=== PATIENT | female | born 1955 | race Caucasian/White ===

== ENCOUNTER → 2020-04-17 | Outpatient (CLI) ==
[~2020-04-17] MED LIST: BASA100I SC; ENAL5TA PO; HYDR12CA PO; JARD1TAB PO; LEVAINH INH; LOVA20TA2 PO; METO1TAB7 PO; OZEM2INJ SC; PANT40TA29 PO; PRED10PA PO; VIIB40TA PO
== END ==
LOC: M LABSMTC 13:38
PROVIDERS: ATTEND Anesthesiology
DX: Z01.812 Encounter for preprocedural laboratory examination (principal); Z20.828 Contact with and (suspected) exposure to other viral communicable diseases

== ENCOUNTER 2020-04-22 08:16 | Day surgery (SDC) | payer OTHER ==
[~2020-04-22] VITALS: Ht 152.4 cm; Wt 87.1 kg
[~2020-04-22 08:16] MED LIST changes: +ALBUTEROL SULFATE 2.5 MG/0.5 ML INH NEB SOLN INH ONE; +LIDOCAINE 1% MDV 20ML VIAL SQ PRN; +LIDOCAINE 2% 100MG/5ML SDV (FOR ANES.) As Ordered ONE; +LIDOCAINE 4% INJ 5ML AMP INH ONE; +LR 1,000 ML IV ONE; +MIDAZOLAM INJ 2MG/2ML VIAL (J2250 PER 1MG) As Ordered ONE; +ONDANSETRON 4MG/2ML VIAL As Ordered ONE; +ROCURONIUM BROMIDE 50 MG/5 ML VIAL As Ordered ONE; +SUGAMMADEX SODIUM 500 MG/5 ML VIAL (BRIDION) As Ordered ONE; +dexameTHASONE 4 MG/ML 1ML VIAL (J1100 PER 1MG) As Ordered ONE; +fentaNYL 100 MCG/2 ML INJECTION (J3010) As Ordered ONE; +propofoL 200 MG/20 ML VIAL As Ordered ONE
[2020-04-22 09:01] LABS: BASO # 0.1 10^3/uL (0.0-0.2); BASO % 0.9 % (0.0-1.0); EOS # 0.2 10^3/uL (0.0-0.5); EOS % 1.6 % (0.0-3.0); HEMATOCRIT 45.3 % (36.0-47.0); HEMOGLOBIN 13.6 g/dl (12.0-15.5); LYMPH # 1.3 10^3/uL (1.5-5.0); LYMPH % 11.2 % (24.0-44.0); MEAN CORPUSCULAR VOLUME 83.1 fl (80.0-96.0); MONO % 8.9 % (0.0-5.0); NEUTROPHILS % 76.7 % (36.0-66.0); PLATELET COUNT, AUTOMATED 194 10^3/uL (150-450); RED BLOOD COUNT 5.45 10^6/uL (4.00-5.40); WHITE BLOOD COUNT 11.7 10^3/uL (4.0-10.0)
[2020-04-22 09:16] LABS: INR 0.96
[2020-04-22] MEDS ORDERED: CETACAINE SPRAY 5GM As Ordered ONE (09:17)
[2020-04-22 09:31] LABS: ALBUMIN 3.7 GM/DL (3.2-5.2); BILIRUBIN,TOTAL 1.5 MG/DL (0.2-1.0); CALCIUM LEVEL 9.3 MG/DL (8.8-10.2); CREATININE FOR GFR 1.12 MG/DL (0.55-1.30); GLOMERULAR FILTRATION RATE 51.8 (>45); POTASSIUM SERUM 3.6 MEQ/L (3.5-5.1)
[2020-04-22] MEDS ORDERED: VASOPRESSIN INJ 20 UNITS/ML VIAL As Ordered ONE (10:10)
--- NOTE | 2020-04-22 10:14 | ECGEPIP ---
[facility] Test Date: 2020-04-22 Pat Name: CODY AMATO Department: Room: - Gender: Female Maintenance Leader: ARTEMIO : 1955 Requested By: BUCKY Benoit Order Number: [id number] Reading MD: Opal Jackson Measurements Intervals [place] Rate: 89 P: 32 NV: 130 QRS: 22 QRSD: 72 T: 35 QT: 335 QTc: 408 Interpretive Statements SINUS RHYTHM LOW QRS VOLTAGE IN PRECORDIAL LEADS ST T ABN NO PRIOR Electronically Signed on 04-22-2020 10:13:54 EDT by Opal Jackson
[2020-04-22] MEDS ORDERED: ACETAMINOPHEN 1000MG 100ML IV BTL (OFIRMEV) (J0131 PER 10MG) As Ordered ONE (10:21)
[2020-04-22] MEDS ORDERED: PHENYLephrine HCL 500 MCG/5 ML (100MCG/ML) SYRINGE (J2370) As Ordered ONE (10:21)
[2020-04-22] MEDS ORDERED: ePHEDrine SULFATE 25 MG/5 ML(5MG/ML) SYRINGE As Ordered ONE (10:21)
[2020-04-22] MEDS ORDERED: THROMBIN SOLN 5,000 UNITS VIAL As Ordered ONE (11:07)
[2020-04-22] MEDS ORDERED: EPINEPHrine 1MG/10ML SYRINGE 1.5IN As Ordered ONE (11:07)
[2020-04-22] MEDS ORDERED: LEVALBUTEROL 1.25 MG/0.5 ML CONCENTRATE NEB As Ordered ONE (11:24)
--- NOTE | 2020-04-22 11:27 | REPVR ---
PROCEDURE INFORMATION: Exam: XR Chest, 1 View Exam date and time: 04/22/2020 11:18 AM Age: 64 years old Clinical indication: Cough; Additional info: Post op in pacu/ post bronchoscopy TECHNIQUE: Imaging protocol: XR of the chest Views: 1 view. COMPARISON: No relevant prior studies available. FINDINGS: Lungs: Interstitial prominence . Asymmetric right-sided airspace disease and volume loss. Pleural space: Small right pleural effusion. No significant pneumothorax. Heart/Mediastinum: Borderline cardiomegaly and mild mediastinal widening. Bones/joints: Osteopenia and degenerative change. IMPRESSION: 1. Asymmetric right-sided airspace disease and volume loss. 2. Additional findings as described above. Electronically signed by: Johan Mendoza On 04/22/2020 11:27:46 AM
[2020-04-22] MEDS ORDERED: ONDANSETRON 4MG/2ML VIAL IV PRN (11:30)
[2020-04-22] MEDS ORDERED: MEPERIDINE INJ 25 MG/ML VIAL (J2175) IV PRN (11:30)
[2020-04-22] MEDS ORDERED: oxyCODONE 5MG TAB PO PRN (11:30)
[2020-04-22] MEDS ORDERED: LR 1,000 ML IV SCH (11:30)
[2020-04-22] MEDS ORDERED: fentaNYL 100 MCG/2 ML INJECTION (J3010) IV PRN (11:30)
[2020-04-22] MEDS ORDERED: METOCLOPRAMIDE INJ 10MG/2ML VIAL (J2765 PER 1) IV PRN (11:30)
[2020-04-22] MEDS ORDERED: LEVALBUTEROL 1.25 MG/0.5 ML CONCENTRATE NEB NEB ONE (12:00)
--- NOTE | 2020-04-22 12:18 | ROOR ---
Patient Name: Mercedes Morejon Procedure Date: 04/22/2020 9:26 AM Date of : 1955 Admit Type: Outpatient Age: 64 Room: Main OR Note Status: Finalized Attending MD: Jannet Terrell MD Procedure: Bronchoscopy Indications: Right upper lobe mass, Right middle lobe mass, Right lower lobe mass, Hilar lymphadenopathy, Mediastinal adenopathy Providers: Jannet Terrell MD (Doctor) Referring MD: CHRYSTAL NGO MD (Referring MD) Requesting Physician: Medicines: General Anesthesia, Lidocaine 4% via nebulizer with Albuterol 2.5 mg, Epinephrine 1 mg/10 mL topical 1 mL, Cetacaine topical Complications: No immediate complications. Estimated blood loss: Minimal Procedure: Pre-Anesthesia Assessment: - Prior to the procedure, a History and Physical was performed, and patient medications and allergies were reviewed. The patient's tolerance of previous anesthesia was also reviewed. The risks and benefits of the procedure and the sedation options and risks were discussed with the patient. All questions were answered, and informed consent was obtained. Prior Anticoagulants: The patient has taken no previous anticoagulant or antiplatelet agents. ASA Grade Assessment: III - A patient with severe systemic disease. After reviewing the risks and benefits, the patient was deemed in satisfactory condition to undergo the procedure. - Patient identification and proposed procedure were verified prior to the procedure by the physician, the nurse, the equipment cleaner and tester and the cnc technician. The procedure was verified in the procedure room. The Bronchoscope was introduced through the mouth, via the endotracheal tube (the patient was intubated for the procedure) and advanced to the tracheobronchial tree of both lungs. The patient tolerated the procedure well. The procedure was accomplished without difficulty. Findings: Bilateral Lung Abnormalities: Trachea appeared normal, imelda was blunt. Mucosa in right upper lobe appeared edematous and irregular with narrowing in right upper lobe apical segment and almost complete occlusion in anterior segment of the right upper lobe (B3). In the right middle lobe there was narrowing due to edematous and irregular mucosa. In the right lower lobe the mucosa also appeared edematous and irregular with narrowing of segmental orificases with near occlusion of the right lower lobe medial basal segment. In the left upper lobe there was some edematous and irregular mucosa and partial occlusion in apical-posterior segment. Endobronchial biopsies were performed in the anterior segment of the right upper lobe, in the medial basal segment of the right lower lobe and in the apical-posterior segment of the left upper lobe using forceps and sent for histopathology examination. Guided brushings were obtained in the anterior segment of the right upper lobe with a cytology brush and sent for routine cytology. BAL was performed in the left upper lobe and in the right upper lobe of the lung and sent for cell count, bacterial culture, and fungal & AFB analysis and cytology. The return was blood-tinged. Mucous plugs were present in the return fluid. An endobronchial ultrasound endoscope was utilized in order to assist with fine needle aspiration in the left hilum. Transbronchial needle aspiration of a lymph node was performed in the left hilum using an Olympus EBUS-TBNA 21 gauge needle and sent for routine cytology. Rapid onsite cytopathology confirmed adequate sample. The procedure was guided by ultrasound. Transbronchial needle aspiration technique was selected because the sampling site was not visible endoscopically. Impression: - Right upper lobe infiltrate - Right middle lobe mass - Right lower lobe mass - Mucosal abnormality in right upper lobe, right middle lobe, right lower lobe and left upper lobe. There was narrowing and obstruction in segmental bronchi in right upper lobe, right lower lobe and left upper lobe. - A endobronchial biopsies was performed. - Brushings were obtained. - Bronchoalveolar lavage was performed. - Endobronchial ultrasound was performed. - A transbronchial needle aspiration was performed of left hilar lymph node Recommendation: - Await test results. Attending Participation: I personally performed the entire procedure. Jannet Terrell MD 04/22/2020 12:17:47 PM Number of Addenda: 0 Note Initiated On: 04/22/2020 9:26 AM
[2020-04-22 13:00] VITALS: BP 105/63
[2020-04-22 14:37] LABS: COLOR PINK (COLORLESS); SOURCE BRON ALVEOLAR LAVAGE
[2020-04-22 14:38] LABS: APPEARANCE CLOUDY (CLEAR)
[2020-04-22 15:15] LABS: APPEARANCE CLOUDY (CLEAR); COLOR PINK (COLORLESS); SOURCE LEFT UPPER LOBE
[2020-04-23 14:04] LABS: MONOCYTES/MACROPHAGES, BAL 80 %
[2020-04-23 14:05] LABS: MONOCYTES/MACROPHAGES, BAL 70 %
== END 2020-04-22 13:05 | disposition home or self-care (01) ==
LOC: M SDC 08:16
PROVIDERS: ATTEND Internal Medicine Pulmonary Disease
DX: C34.12 Malignant neoplasm of upper lobe, left bronchus or lung (principal); C34.31 Malignant neoplasm of lower lobe, right bronchus or lung; C34.11 Malignant neoplasm of upper lobe, right bronchus or lung; C77.1 Secondary and unspecified malignant neoplasm of intrathoracic lymph nodes; I10 Essential (primary) hypertension; E78.5 Hyperlipidemia, unspecified; E10.9 Type 1 diabetes mellitus without complications; Z79.4 Long term (current) use of insulin; Z87.891 Personal history of nicotine dependence; K21.9 Gastro-esophageal reflux disease without esophagitis; L40.9 Psoriasis, unspecified; D86.1 Sarcoidosis of lymph nodes; Z79.52 Long term (current) use of systemic steroids; Z79.899 Other long term (current) drug therapy; Z88.1 Allergy status to other antibiotic agents
CPT/HCPCS: 31624; 31628; 31632; 31652; 36415; 71045; 80053; 82164; 85025; 85610; 87070; 87102; 87116; 87205; 87206; 88104; 88108; 88173; 88305; 88313; 88341; 88342; 89051; 93005; J0131; J1100; J2250; J2370; J2405; J3010

== ENCOUNTER → 2020-05-08 | Outpatient (CLI) | payer OTHER ==
[~2020-05-08] MED LIST changes: -ALBUTEROL SULFATE 2.5 MG/0.5 ML INH NEB SOLN INH ONE; +LEVA0.6322 NEB; -LIDOCAINE 1% MDV 20ML VIAL SQ PRN; -LIDOCAINE 2% 100MG/5ML SDV (FOR ANES.) As Ordered ONE; -LIDOCAINE 4% INJ 5ML AMP INH ONE; -LR 1,000 ML IV ONE; -MIDAZOLAM INJ 2MG/2ML VIAL (J2250 PER 1MG) As Ordered ONE; -ONDANSETRON 4MG/2ML VIAL As Ordered ONE; +PROHANCE 279.3MG/ML 15ML VIAL As Ordered ONE; -ROCURONIUM BROMIDE 50 MG/5 ML VIAL As Ordered ONE; -SUGAMMADEX SODIUM 500 MG/5 ML VIAL (BRIDION) As Ordered ONE; -dexameTHASONE 4 MG/ML 1ML VIAL (J1100 PER 1MG) As Ordered ONE; -fentaNYL 100 MCG/2 ML INJECTION (J3010) As Ordered ONE; -propofoL 200 MG/20 ML VIAL As Ordered ONE
--- NOTE | 2020-05-08 19:00 | REP ---
INDICATION: MAL NEOPLASM OF LUNG, METS?. COMPARISON: None. TECHNIQUE: Axial and sagittal imaging planes are utilized for T1 and T2-weighted scans. Sequences include spin-echo, fast spin echo, FLAIR, and diffusion weighted sequences. The gadolinium enhancement dose is 8 mL of intravenous ProHance. FINDINGS: No bony calvarial lesion is seen. Craniocervical junction and upper cervical cord are normal in appearance. There is no evidence of significant paranasal sinus disease. No intraorbital abnormality is appreciated. There are scattered small-vessel atherosclerotic changes in the subcortical and periventricular white matter bilaterally. No intracranial mass lesion is seen. There are tiny T2 hyperintensities in the basal ganglia inferiorly on the left consistent with dilated perivascular space. Normal variant. There is no evidence of infarct, extra-axial fluid collection or midline shift. Diffusion-weighted scans show no evidence of restricted diffusion. Post-contrast enhanced MR images show no suspicious gadolinium enhancement. IMPRESSION: Small-vessel atherosclerotic changes. There is no evidence of intracranial metastasis. <Electronically signed by Shorty Okeefe > 05/08/20 [id number]
== END ==
LOC: M RAD 17:04
PROVIDERS: ATTEND Internal Medicine Pulmonary Disease
DX: C34.11 Malignant neoplasm of upper lobe, right bronchus or lung (principal)
CPT/HCPCS: 70553; A9576

== ENCOUNTER 2020-05-12 12:10 | Inpatient (IN) | payer OTHER ==
[~2020-05-12] VITALS: Ht 154.9 cm; Wt 81.6 kg
[2020-05-12] VITALS (15 sets, daily range): BP systolic 74–119; BP diastolic 50–77
[~2020-05-12 12:10] MED LIST changes: -LEVA0.6322 NEB; -PROHANCE 279.3MG/ML 15ML VIAL As Ordered ONE
[2020-05-12 13:00] LABS: BASO # 0.1 10^3/uL (0.0-0.2); BASO % 0.9 % (0.0-1.0); EOS # 0.1 10^3/uL (0.0-0.5); EOS % 2.1 % (0.0-3.0); HEMATOCRIT 42.6 % (36.0-47.0); HEMOGLOBIN 13.4 g/dl (12.0-15.5); LYMPH # 1.3 10^3/uL (1.5-5.0); MEAN CORPUSCULAR HEMOGLOBIN 26.2 pg (27.0-33.0); MEAN CORPUSCULAR HGB CONC 31.5 g/dl (32.0-36.5); MEAN CORPUSCULAR VOLUME 83.2 fl (80.0-96.0); MONO # 0.7 10^3/uL (0.0-0.8); MONO % 10.1 % (0.0-5.0); NEUTROPHILS # 4.6 10^3/uL (1.5-8.5); NEUTROPHILS % 67.8 % (36.0-66.0); PLATELET COUNT, AUTOMATED 151 10^3/uL (150-450); RED BLOOD COUNT 5.12 10^6/uL (4.00-5.40); WHITE BLOOD COUNT 6.8 10^3/uL (4.0-10.0)
--- NOTE | 2020-05-12 13:10 | REP ---
INDICATION: DYSPNEA/COUGH. COMPARISON: Portable chest 04/22/2020 TECHNIQUE: AP upright portable chest FINDINGS: Lungs better inflated than on the previous study. There is increased blunting of the right CP angle indicating enlarging effusion. Airspace opacity in the right mid and lower lung zone is seen in an asymmetric pattern with some vascular congestion in the upper right lung zone, allowing for differences in technique quite similar to the previous study. Left lung well inflated with some basilar fibrotic changes. Small zone of lateral pleural thickening or subpleural disease at the left CP angle. No pneumothorax. Heart shows left atrial enlargement with elevation of the mainstem bronchus. Question of some superior mediastinal widening on the right versus the effect of mediastinal fat and AP portable technique. There is no vascular redistribution on the the left. IMPRESSION: Increasing right pleural effusion and vascular redistribution, asymmetrically on the right compared to left. The airspace disease in the right lung appears similar allowing for better level of inflation compared to 04/22/2020. Left lateral pleural thickening or subpleural disease at the CP angle. Left lung well inflated and otherwise clear. Left atrial enlargement and mild prominence of cardiac silhouette overall. <Electronically signed by Jonathon Tellez > 05/12/20 [id number]
[2020-05-12] MEDS ORDERED: ACETAMINOPHEN 500 MG TAB PO ONE (13:15)
[2020-05-12] MEDS ORDERED: ISOVUE-370 76% 100ML VIAL As Ordered ONE (13:20)
[2020-05-12 13:27] LABS: ALBUMIN 3.4 GM/DL (3.2-5.2); BILIRUBIN,DIRECT 0.2 MG/DL (0.0-0.2); THYROID STIMULATING HORMONE 0.472 uIU/ML (0.358-3.740); TOTAL PROTEIN 6.4 GM/DL (6.4-8.2)
--- NOTE | 2020-05-12 14:07 | REP ---
INDICATION: dyspnea. COMPARISON: Portable chest 05/12/2020, 04/22/2020. TECHNIQUE: Bolus 100 mL Isovue 370 with standard coronal and sagittal reconstructions and MIP reformats. FINDINGS: Airspace opacity in the right lung on portable chest is confirmed to be large above perihilar infrahilar confluent mass by CT. It envelopment the hilar vessels and extends to the pleura medially and laterally in the lower chest. The confluent mass overall has a vertical extent of at least 10 cm, 9.3 cm in AP dimension and 4.5 cm transversely. Confluent adenopathy in the right paratracheal, AP window and subcarinal regions. Some precarinal nodes and prevascular space nodes of pathologic size are noted as well smaller nodes at the left hilum are present. There is a subsegmental atelectatic and dependent atelectatic changes in both lower lung zones. Pleural disease most prominent laterally in the right lower lung zone and posteromedially in the infrahilar region. There bilateral pleural effusions which on the right extends upward to near the imelda level and is much smaller on the left. Pericardial effusion the maximum thickness of 24 mm of posterolaterally. Allowing for this the heart size is the only mildly prominent the thoracic aorta shows no aneurysm or dissection. In the mediastinum, the right, left and main pulmonary artery segments are without filling defects or vessel cut off. The left upper and lower lobe pulmonary arteries are without vessel cut off or filling defects. There is attenuation of the right middle and upper pulmonary arteries due to the envelop ping mass well the lower lobe arteries were of normal caliber no vessel cut off however segmental and visible subsegmental arteries also without filling defect or vessel cut off. Liver is only seen in part but as a prominent left hepatic lobe, lobulated contours and there is an enlarged spleen which is seen only in part with the transverse diameter of 14.5 cm adrenal glands slightly thickened suggesting adrenal hyperplasia appear to be some upper pole cysts in the right kidney. Gallbladder and pancreas only partly visualized but grossly intact, few small nodes in the gastrohepatic ligament visible. The bone windows show some degenerative changes in the spine without destructive lesion or compression deformities. Posterior elements intact with visualized sternum, manubrium, medial clavicles, visualized portions of scapula, humeral heads and ribs without fracture or destructive lesion. IMPRESSION: 1. No CT evidence of pulmonary thromboembolism. 2. Large right hilar perihilar mass extending vertically at least 10 cm by 9.3 x 4.5 cm as pleural extensions along both medial and lateral aspects of the lung base. Small pleural effusion on the right trace on the left. This represents a lung malignancy. 3. Mediastinal and some left hilar adenopathy as described above. There are a couple of the satellite nodule suspected in the right upper lobe. 4. Pericardial effusion up to 2.4 cm thick posteriorly only minimal enlargement of the cardiac silhouette. Some gastric Paddock ligament nodes evident. 5. Enlargement left hepatic lobe and splenomegaly. This suggests chronic liver disease. No definite bone lesion. <Electronically signed by Jonathon Tellez > 05/12/20 [id number]
[2020-05-12] MEDS ORDERED: BISACODYL 10 MG SUPP PR PRN (14:30)
[2020-05-12] MEDS ORDERED: PERCOCET 5MG/325MG TAB PO PRN ×2 (14:30)
[2020-05-12] MEDS ORDERED: LEVALBUTEROL 1.25 MG/0.5 ML CONCENTRATE NEB NEB PRN (14:30)
[2020-05-12] MEDS ORDERED: NORCO, ANEXSIA 5/325MG TABLET (HYDROcodone/ACETAMINOPHEN) PO PRN (15:00)
[2020-05-12 15:10] LABS: ABG BASE EXCESS -0.6 (-2.0-2.0); ABG HCO3 23.6 MEQ/L (22.0-26.0); ABG O2 SATURATION 94.7 % (95.0-99.0); ABG PARTIAL PRESSURE CO2 37.3 mmHg (35.0-45.0); ABG PARTIAL PRESSURE O2 70.7 mmHg (75.0-100.0); ABG TOTAL CO2 24.7 MEQ/L (23.0-31.0); ABG pH (ARTERIAL) 7.419 UNITS (7.350-7.450)
[2020-05-12] MEDS ORDERED: LEVA0.6322 NEB (15:10)
[2020-05-12 15:11] LABS: ABG SITE RT BRACHIAL
[2020-05-12] MEDS ORDERED: KETOROLAC 30 MG/ML 1ML VIAL IV SCH (16:00)
[2020-05-12] MEDS: HEPARIN SOD (PORCINE) 5000UNITS/ML 1ML VIAL/SYRINGE SC SCH (16:26)
[2020-05-12] MEDS: KCL 20MEQ IN D5/NS 1000ML 1,000 ML IV SCH (16:27)
--- NOTE | 2020-05-12 16:37 | HPEPDOC ---
General Date of Admission May 12, 2020 at 14:30 Date of Service: May 12, 2020 Chief Complaint The patient is a 64-year-old female admitted with a reason for visit of Pericardial Effusion. Source: Patient Exam Limitations: No limitations History of Present Illness Mrs. Morejon is a 64 year old female with sarcoidosis, HTN, and DM type 2 here with progressively worsening dyspnea. Her dyspnea initially started in November of 2019. Her PCP thought she had pneumonia. After 2 rounds of prednisone and antibiotics not improving her symptoms, she was sent to pulmonary for further evaluation. Imaging demonstrated malignancy and fluid in her lung. She was then sent to the ED. CTA of the chest demonstrated a large right perihilar mass, bilateral pleural effusion, and 2.4 cm pericardial effusion. The ED consulted CT surgery, Dr. Tran who recommended a stat echocardiogram and a stat read for the pericardial effusion. Otherwise when I spoke with her, her dyspnea has been progressively worsening. Denies sick contacts, heart disease, or renal disease. Recently had a dry cough, but denies fever/chills, chest pain, abdominal pain, diarrhea or dysuria. Patient was moved up to the ICU. Dr. Tran and patient had a long conversation about the procedure. Patient would like to discuss with . Tentatively planning for pericardial window tomorrow morning. Home Medications Scheduled Empagliflozin (Jardiance) 10 Mg Tablet, 10 MG PO DAILY, (Reported) Enalapril Maleate (Enalapril Maleate) 5 Mg Tablet, 5 MG PO DAILY, (Reported) Hydrochlorothiazide (Hydrochlorothiazide) 12.5 Mg Capsule, 12.5 MG PO DAILY, (Reported) Insulin Glargine,Hum.rec.anlog (Basaglar Kwikpen U-100) 100 Unit/1 Ml Insuln.pen, 35 UNIT SC QHS, (Reported) Lovastatin (Lovastatin) 20 Mg Tablet, 20 MG PO QHS, (Reported) Metoprolol Succinate (Metoprolol Succinate) 50 Mg Tab.er.24h, 50 MG PO DAILY, (Reported) Pantoprazole Sodium (Pantoprazole Sodium) 40 Mg Tablet.dr, 40 MG PO DAILY, (Reported) Semaglutide (Ozempic) 0.25 Mg/0.2 Ml Pen.injctr, 0.5 MG SC QWEEK, (Reported) MONDAY Vilazodone HCl (Viibryd) 40 Mg Tablet, 40 MG PO DAILY, (Reported) Scheduled PRN Levalbuterol HCl (Levalbuterol HCl) 0.63 Mg/3 Ml Vial.neb, 0.63 MG NEB Q6H PRN for SHORTNESS OF BREATH, (Reported) Allergies Coded Allergies: citalopram (Verified Adverse Reaction, Severe, jittery, 05/12/20) metformin (Verified Adverse Reaction, Severe, nausea, vomiting, 05/12/20) erythromycin base (Verified Adverse Reaction, Intermediate, vomiting, 04/20/20) azithromycin (Verified Adverse Reaction, Unknown, vomiting, 05/12/20) mirtazapine (Verified Adverse Reaction, Unknown, insomnia, 05/12/20) Past Medical History Medical History 1. Sarcoidosis 2. HTN 3. IDDM 4. History of pulmonary embolism 5. GERD 6. Psoriasis Surgical History 1. Hysterectomy 2. Hernia repair Family History Father: Emphysema Mother: CHF Social History * Smoker: former Smoker (Quit in 1993) Alcohol: Denies Drugs: denies A-FIB/CHADSVASC A-FIB History Current/History of A-Fib/PAF?: No Review of Systems Constitutional: Denies: Chills, Fever Eyes: Denies: Vision change ENT: Denies: Sore Throat Skin: Denies: Rash Pulmonary: Reports: Dyspnea, Cough Cardiovascular: Denies: Chest Pain Gastrointestinal: Denies: Nausea, Abdominal Pain Genitourinary: Denies: Dysuria Hematologic: Denies: Bruising Endocrine: Reports: Polydipsia; Denies: Polyphagia, Polyuria Physical Examination General Exam: Positive: Alert, Cooperative, Mild Distress Eye Exam: Positive: EOMI; Negative: Sclera icteric ENT Exam: Positive: Atraumatic Neck Exam: Positive: Supple Chest Exam: Positive: Clear to auscultation, Diminished (In the right lower lobe) Heart Exam: Positive: Rate Normal, Regular Rhythm Abdomen Exam: Positive: Normal bowel sounds, Soft; Negative: Tenderness Extremity Exam: Negative: Cyanosis Neuro Exam: Positive: Cranial Nerves 3-12 NL Psych Exam: Positive: Mental status NL, Mood NL Vital Signs Vital Signs Date Time Temp Pulse Resp B/P (MAP) Pulse Ox O2 Delivery O2 Flow Rate FiO2 05/12/20 15:31 87 22 105/65 (78) 95 05/12/20 13:16 Room Air 05/12/20 12:11 98.2 Laboratory Data Labs 24H Laboratory Tests 2 05/12/20 12:49: Immature Granulocyte % (Auto) 0.1, Neutrophils (%) (Auto) 67.8H, Lymphocytes (%) (Auto) 19.0L, Monocytes (%) (Auto) 10.1H, Eosinophils (%) (Auto) 2.1, Basophils (%) (Auto) 0.9, Neutrophils # (Auto) 4.6, Lymphocytes # (Auto) 1.3L, Monocytes # (Auto) 0.7, Eosinophils # (Auto) 0.1, Basophils # (Auto) 0.1, Nucleated Red Blood Cells % (auto) 0.0, Total Bilirubin 1.0, Direct Bilirubin 0.2, Aspartate Amino Transf (AST/SGOT) 33, Alanine Aminotransferase (ALT/SGPT) 36, Alkaline Phosphatase 232H, PR-Ema-W-Type Natriuretic Peptide 118, Total Protein 6.4, Albumin 3.4, Albumin/Globulin Ratio 1.1L, Thyroid Stimulating Hormone (TSH) 0.472 05/12/20 12:50: POC Glucose (Misc Panel) 155H, POC Sodium (Misc Panel) 133L, POC Potassium (Misc Panel) 3.8, POC Chloride (Misc Panel) 98, POC Total CO2 (Misc Panel) 26.0, POC Blood Urea Nitrogen (Misc Panel 25, POC Ionized Calcium (Misc Panel) 4.5, POC Creatinine (Misc Panel) 1.3, POC Hematocrit (Misc Panel) 42.0 05/12/20 12:58: POC Lactate (Misc Panel) 1.54 05/12/20 13:00: POC Troponin I (Misc) 0.01 05/12/20 14:54: Blood Gas Bicarbonate Standard 24.0, Arterial Blood pH 7.419, Arterial Blood Partial Pressure CO2 37.3, Arterial Blood Partial Pressure O2 70.7L, Arterial Blood Total CO2 24.7, Arterial Blood HCO3 23.6, Arterial Blood Base Excess -0.6, Arterial Blood Oxygen Saturation 94.7L, Arterial Blood Gas Puncture Site RT BRACHIAL CBC/BMP Laboratory Tests 05/12/20 12:49 Microbiology Microbiology 05/12/20 Blood Culture, Received Pending 05/12/20 Blood Culture, Received Pending Assessment/Plan Mrs. Morejon is a 64 year old female with stage 3-4 lung cancer, sarcoidosis, and IDDM here with worsening dyspnea found to have pericardial effusion and pleural effusion. In the ED, CT surgery, Dr. Tran was consulted. Recommended stat echocardiogram for pericardial effusion and stat read. Pending official echocardiogram read. Dr. Tran saw patient in the ICU. Discussed the procedure with patient. Patient would like to speak with about procedure. Tentatively planning for procedure tomorrow morning. NPO after midnight. Plan / VTE VTE Prophylaxis Ordered?: Yes Plan Plan 1. Pericardial effusion -Demonstrated on CTA that is up to 2.4cm thick -Stat echocardiogram read, may need to be drained soon -CT surgery, Dr. Tran, consulted. Recommendations appreciated. Planning for OR tomorrow morning -No uremia, no history of heart disease -May be related to malignancy with her history of stage 3-4 lung cancer 2. Pleural effusion -Bilateral pleural effusion -Pending echocardiogram read -May be also related to malignancy 3. Hypertension -Blood pressure well controlled -Will hold enalapril, HCTZ, and Toprol XL as SBP on the lower end 4. IDDM -Holding empagliflozin, ozempic, and vilazodone -After procedure, start Carb consistent diet, ISS, and Levemir 5. GERD -Pantoprazole 6. DVT ppx -Heparin ASHER ROGERS DO May 12, 2020 16:07
[2020-05-12] MEDS ORDERED: DEXTROSE 50% 50 ML SYRINGE IV PRN (17:00)
[2020-05-12] MEDS ORDERED: GLUCAGON INJ 1MG VIAL SC PRN (17:00)
[2020-05-12] MEDS ORDERED: GLUCOSE 4GM CHEW TABLET PO PRN (17:00)
[2020-05-12] MEDS: HumaLOG INSULIN (NovoLOG) PER UNIT SC SCH ×2 (17:30→21:00)
[2020-05-12] MEDS: LEVALBUTEROL 1.25 MG/0.5 ML CONCENTRATE NEB NEB SCH (19:35)
[2020-05-12] MEDS: DOCUSATE SODIUM 100 MG CAP PO SCH (21:23)
[2020-05-12] MEDS: LEVEMIR (INSULIN DETEMIR) 1 UNITS/0.01ML SC SCH (21:24)
[2020-05-13] VITALS (20 sets, daily range): BP systolic 92–130; BP diastolic 52–75; O2SAT 95
[2020-05-13] MEDS: LEVALBUTEROL 1.25 MG/0.5 ML CONCENTRATE NEB NEB SCH ×4 (01:05→19:07)
[2020-05-13] MEDS: HEPARIN SOD (PORCINE) 5000UNITS/ML 1ML VIAL/SYRINGE SC SCH ×2 (02:50→17:57)
[2020-05-13 05:14] LABS: EOS # 0.1 10^3/uL (0.0-0.5); EOS % 1.8 % (0.0-3.0); HEMATOCRIT 38.2 % (36.0-47.0); LYMPH # 0.8 10^3/uL (1.5-5.0); LYMPH % 20.1 % (24.0-44.0); MEAN CORPUSCULAR HEMOGLOBIN 24.8 pg (27.0-33.0); MEAN CORPUSCULAR HGB CONC 29.6 g/dl (32.0-36.5); MONO # 0.4 10^3/uL (0.0-0.8); MONO % 11.2 % (0.0-5.0); NEUTROPHILS # 2.5 10^3/uL (1.5-8.5); NEUTROPHILS % 65.6 % (36.0-66.0); PLATELET COUNT, AUTOMATED 109 10^3/uL (150-450); RED BLOOD COUNT 4.55 10^6/uL (4.00-5.40); WHITE BLOOD COUNT 3.8 10^3/uL (4.0-10.0)
[2020-05-13 05:43] LABS: HEMOGLOBIN 11.3 g/dl (12.0-15.5)
[2020-05-13 05:48] LABS: CALCIUM LEVEL 8.5 MG/DL (8.8-10.2); CREATININE FOR GFR 1.17 MG/DL (0.55-1.30); GLOMERULAR FILTRATION RATE 49.3 (>45)
[2020-05-13] MEDS ORDERED: ceFAZolin SOD 2 GM in IV 1 EA IV ONE (06:00)
[2020-05-13] MEDS: HumaLOG INSULIN (NovoLOG) PER UNIT SC SCH ×4 (06:56→21:00)
--- NOTE | 2020-05-13 07:36 | ECHO ---
DATE OF PROCEDURE: 05/12/2020 Age: 64 Gender: Female REFERRING PHYSICIAN: [facility] emergency room. INDICATION: Pericardial effusion. MEASUREMENTS: Aorta 3.0 LA 3.1 IV is 1.0 LV 3.2 LVPW 0.9 IVC 1.7 Mitral E wave velocity 82, A wave 95. E prime septal 6.5. E prime lateral 6.5 FINDINGS: This study is of fair technical quality with somewhat challenging visualization. The patient is in sinus rhythm. Left ventricle is normal size and there is normal systolic function. I estimate ejection fraction (EF) around 60%. No segmental wall motion abnormalities are appreciated. Right ventricle is also normal size and systolic function. Both atria appear normal. Aortic valve is sclerotic, but has preserved mobility. There are degenerative abnormalities of mitral valve with mitral annular calcifications and mild thickening of mitral leaflets. Mobility is preserved. Tricuspid and pulmonic valves appear normal. There is a large circumferential pericardial effusion that is most abundant close to the left ventricular apex measuring a little over 2 cm. It becomes progressively less copious towards the base of the heart and the thickness of the fluid level close the atria is less than 0.5 cm. I do not appreciate any collapse of any of the 4 cardiac chambers. Inferior vena cava is normal size and appropriately collapses with inspiration indicative of normal central venous pressure. Aortic root is normal. Aortic arch and abdominal aorta were not well seen. Doppler interrogation reveals competent aortic valve without significant stenosis or insufficiency. Same applies for mitral valve. There is mild tricuspid insufficiency. Calculated pulmonary artery pressure is approximately 30 mmHg corresponding to upper limits of normal values. Pulmonic valve is functionally competent. Mitral inflow pattern and tissue Doppler imaging of mitral annulus revealed grade 1 diastolic dysfunction. CONCLUSIONS: 1. Study is of fair technical quality. The patient is in sinus rhythm. 2. Large circumferential pericardial effusion. Its largest diameter is close to left ventricular apex. No signs of cardiac compression. 3. Normal LV size and systolic function, grade 1 diastolic dysfunction. 4. No significant valvular disease. 5. Likely normal central venous pressure and borderline pulmonary hypertension. COMMENTS: Results of the study were communicated to Dr. Tran. AYESHA
[2020-05-13] MEDS: DOCUSATE SODIUM 100 MG CAP PO SCH ×2 (08:23→20:35)
[2020-05-13] MEDS: MOM 30ML SUSPENSION UDC PO SCH (08:23)
[2020-05-13] MEDS: PANTOPRAZOLE 40MG TAB (PROTONIX) PO SCH (08:31)
--- NOTE | 2020-05-13 08:35 | REP ---
INDICATION: pericardial effusion, lung cancer. COMPARISON: Comparison study May 12, 2020. TECHNIQUE: Two views.. FINDINGS: Monitoring electrodes are seen. Pleural opacity persists on the right with blunting of the right lateral pleural angle. Left lateral pleural angle is improved. Heart size is unchanged. No new infiltrate is seen. There is a rounded opacity in the perihilar region on the right consistent with infiltrate or large mass, unchanged. IMPRESSION: Extensive pleuroparenchymal opacity right perihilar and right lung base regions. Somewhat improved left pleural angle. No new infiltrate.. <Electronically signed by Shorty Okeefe > 05/13/20 [id number]
[2020-05-13] MEDS ORDERED: BUPIVACAINE LIPOSOME/PF 1.3% 20ML VIAL (13.3MG/ML)(EXPAREL)(C9290 PER1MG) As Ordered ONE (10:26)
[2020-05-13] MEDS ORDERED: MIDAZOLAM INJ 2MG/2ML VIAL (J2250 PER 1MG) As Ordered ONE (10:42)
[2020-05-13] MEDS ORDERED: LIDOCAINE 2% 100MG/5ML SDV (FOR ANES.) As Ordered ONE (10:42)
[2020-05-13] MEDS ORDERED: ROCURONIUM BROMIDE 50 MG/5 ML VIAL As Ordered ONE ×2 (10:42→13:45)
[2020-05-13] MEDS ORDERED: propofoL 200 MG/20 ML VIAL As Ordered ONE (10:42)
[2020-05-13] MEDS ORDERED: fentaNYL 100 MCG/2 ML INJECTION (J3010) As Ordered ONE ×2 (10:42→13:41)
--- NOTE | 2020-05-13 11:37 | ECGEPIP ---
[facility] - ED Test Date: 2020-05-12 Pat Name: CODY AMATO Department: Room: - Gender: Female Transition Manager: yaya : 1955 Requested By: QUOC ALBARRAN Order Number: [id number] Reading MD: Todd Tyler Measurements Intervals [place] Rate: 95 P: 22 ID: [id number] QRS: 15 QRSD: 76 T: 75 QT: 316 QTc: 398 Interpretive Statements SINUS RHYTHM POOR R WAVE PROGRESSION LOW QRS VOLTAGE IN PRECORDIAL LEADS NSTTW ABNORMALITY(S) SIMILAR TO 04/22/20 Electronically Signed on 05-13-2020 11:37:11 EST by Todd Tyler
[2020-05-13] MEDS: KCL 20MEQ IN D5/NS 1000ML 1,000 ML IV SCH ×3 (11:43→17:52)
--- NOTE | 2020-05-13 12:05 | CR ---
DATE OF CONSULTATION: 05/12/2020 REASON FOR CONSULTATION: The patient was seen at the request of the hospitalist service in the emergency room for increasing shortness of breath. HISTORY OF PRESENT ILLNESS: The patient is a 64-year-old white female who had a known diagnosis of a right upper and middle lobe mass with adenocarcinoma. Her symptoms started in late spring with a cough, sputum production and occasional hemoptysis. She was treated with a variety of antibiotics by her primary car physicians and a chest x-ray was finally undertaken, which showed the above masses. She did not complain of fevers, chills or sweats, but has noted an approximate 3 to 4 pound weight loss over the past four months. Most significantly, she has been short of breath for the last three months and that has become worse and worse until finally today she could not get up and around and walk around her house and finally sought medical attention in the emergency room. She had previously been seen by Dr. Terrell and underwent a bronchoscopy and a complete workup where the diagnosis was ascertained. Today, she start a cough that she states is only occasionally and she brings up some white to yellow sputum. She denies chest pain or chest discomfort. She does have pain in her mid back. There is no dysphagia. She is a former smoker having smoked one pack of Marlboros per today, but quit approximately 30 years ago. She also carries a diagnosis of sarcoidosis with mediastinal lymphadenopathy. She is diagnosed by mediastinoscopy many years ago. She has been in remission since her diagnosis. She also had a history of a pulmonary embolism treated with anticoagulation, but not currently on anticoagulation now. PAST MEDICAL HISTORY: 1. Diabetes. 2. Hypertension. 3. Hyperlipidemia. 4. Gastroesophageal reflux disease. 5. Psoriasis. 6. Pulmonary embolism. 7. Sarcoidosis. PRIOR SURGERIES: Hysterectomy with a left-sided hand tendon repair and the above mediastinoscopy. MEDICATIONS: AT HOME: Lovastatin 20 mg q day, Protonix 40 mg q day, Jardiance 10 mg q day, metoprolol ER 50 mg q day, hydrochlorothiazide 12.5 mg q day, enalapril 5 mg q day, Ozempic 2 mg q day. ALLERGIES: AZITHROMYCIN, CITALOPRAM (AZITHROMYCIN BASED), METFORMIN, and MIRTAZAPINE. HABITS: She has the above smoking history. No alcohol and no illicit drugs. EXPOSURES: She has one cat and no dogs or birds. TRAVEL HISTORY: She has been to [place], but not to the [facility]. 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 She retired approximately 10 years ago and up until then all of her TB tests have been negative. No history of asbestos exposure. FAMILY HISTORY: Mother with congestive heart failure (CHF), father with emphysema. Sister from colon cancer. REVIEW OF SYSTEMS: Constitutional: See history of present illness without recent fever, chills or night sweats. She has had a 3 pound weight loss. Nose without epistaxis. Mouth has round teeth. Eyes without diplopia, amaurosis fugax or jaundice. Respiratory: See history of present illness. Cardiac: Without prior myocardial infarctions. Has a history of supraventricular tachycardia (SVT). She has not been aware of any palpitations, however, recently. No intermittent claudication. She does get cramps at night. No peripheral edema. She props herself up on pillows which she has done for many years. GI: With occasional nauseas, no vomiting. No diarrhea or constipation. No melena or hematochezia or hematemesis or abdominal pain. : Without dysuria or hematuria. Does have a history of a renal stone in the past. Endocrine: Without thyroid disease with diabetes. Neurologic: Without paresthesia, paralysis or prior seizures. Psychiatric: Without pathologic anxieties, depression or psychosis. PHYSICAL EXAMINATION: Well-developed, well-nourished, very obese white female in no acute distress, lying at rest. Vital signs: Temperature 98.3 with a heart rate of 86 in sinus rhythm. Respiratory rate of 20 without use of accessory muscles. She is 95% saturated on 2 liters nasal canula and blood pressure is 119/56. Head: Normocephalic. Eyes: Pupils equal, round and reactive to light. Extraocular muscles are intact. Sclerae nonicteric. Nose without deformity. Mouth shows mucous membranes to be pink and moist. Lip, gums and tongue with no thrush. Teeth look to be in good repair. Neck is supple. There is no jugular venous distention, no subcutaneous emphysema. Trachea is midline. She has 2+ carotid pulses without bruits. There is no thyromegaly or lymphadenopathy. Lungs showed decreased breath sounds on the right side at both right and left bases. I really can not tell if her percussion note is full from her diaphragm through her obesity. Sounds a little dull at both bases, however. I hear no wheezes, rhonchi or rales. Cardiac examination shows distant heart sounds, S1 and S2 normal. I cannot feel her PMI through her obesity. Her chest wall shows inframammary candidiasis with a red rash. Abdomen is soft, nontender. Bowel sounds are positive. No hepatomegaly. No costovertebral angle (CVA) tenderness. Again it is very hard to tell organomegaly through her obesity. Extremities show on pedal tibial, no calf tenderness, no tenderness or swelling in the upper extremities. Skin is warm, dry and perfuse. No cyanosis or mottling of the nail beds and knees. Neuro: Cranial nerves II-XII intact with gross motor and gross sensation intact. Gait is not tested. Psychiatric: She is awake and alert, oriented x 3 with appropriate mood and affect conversational. LABORATORY DATA: Her white count today is 6.8 with hemoglobin and hematocrit of 13.4 and 42.6 respectively with a platelet count of 151. Differential shows 67% neutrophils, 19% lymphocytes, 10% monocytes. There are no immature forms and no toxic granulations. Blood gas today showed a pH of 7.41, pCO2 of 37, a pO2 of 70 with a base excess of -0.6. Chemistries today show normal electrolytes with a BUN and creatinine of 19 and 1.12. A glucose of 146 with a calcium of 9.3 and corresponding albumin of 3.7. Total bilirubin is 1.5 with AST and ALT of 30 and 31 respectively. PT/INR on 04/22/2020 was 13.0 and 0.96. Pathology: One biopsy showed moderate differentiated adenocarcinoma. A left upper lobe transbronchial biopsy showed adenocarcinoma. Cells were positive for TTF1. TDL1 showed a 25% expression. No other tumor markers have been reported back. Fine needle biopsy of a left hilar node showed it to be positive for malignancy. Chest CT today done with angiogram protocol did not show a pulmonary embolism. Shows a moderate pericardial effusion directed mostly to the left and posteriorly. She had large right-sided mass of the upper and middle lobes. She has a small right-sided pleural effusion. The computer just crashed and from memory she looks as though she has invasion into the mediastinum. Her echocardiogram today showed a moderate to large pericardial effusion, more at the apex. There was no ventricular or atrial compression. Pulmonary artery pressure is measured around 25 mmHg. There is no significant of impending tamponade. IMPRESSION: 1. Pericardial effusion, at this point not compressive, but probably malignant. 2. Small pleural effusion. 3. Adenocarcinoma right middle and upper lobes. 4. Adenocarcinoma of the left hilar node. 5. Diabetes. 6. Hypertension. PLAN AND DISCUSSION: While her pericardial effusion is not compressive, she is rather short of breath. I think the shortness of breath is a combination of her pericardial effusion and her lung masses. Pericardial effusion is large enough so that it is eventually going to get her into trouble. I will therefore electively drain this tomorrow rather than take her to the operating room tonight. She is not in extremist. I will do a pericardial window with a tube pericardiostomy. At the same time, I will place a chest tube in the right chest to drain a small amount of pericardial effusion. Will send the specimens off for requisite cytology, hematologies, bacteriologies and chemistries. I have explained the procedures to the patient, she understands and is willing to proceed. She knows the complications as of mortality, bleeding and infection. AYESHA
[2020-05-13] MEDS ORDERED: MUPIROCIN 2% OINT 22 GM TUBE As Ordered ONE (12:17)
[2020-05-13] MEDS ORDERED: ceFAZolin 2 GM/D5W 50 ML IV BAG (J0690 PER 500MG) As Ordered ONE (12:34)
[2020-05-13] MEDS ORDERED: VASOPRESSIN INJ 20 UNITS/ML VIAL As Ordered ONE (13:17)
[2020-05-13] MEDS ORDERED: METOCLOPRAMIDE INJ 10MG/2ML VIAL (J2765 PER 1) As Ordered ONE (14:14)
[2020-05-13] MEDS ORDERED: KETOROLAC 60MG 2ML VIAL As Ordered ONE (14:14)
[2020-05-13] MEDS ORDERED: SUGAMMADEX SODIUM 500 MG/5 ML VIAL (BRIDION) As Ordered ONE (14:14)
[2020-05-13] MEDS ORDERED: ONDANSETRON 4MG/2ML VIAL As Ordered ONE (14:14)
[2020-05-13] MEDS ORDERED: NS 1,000 ML IV SCH (14:39)
[2020-05-13] MEDS ORDERED: MORPHINE 1MG/ML IN 0.9% NACL 100ML IV BAG IV PRN (14:45)
[2020-05-13] MEDS ORDERED: EPIDURAL/PCA KEYS XX PRN (14:45)
[2020-05-13] MEDS ORDERED: NALOXONE INJ 0.4MG/1ML VIAL (J2310 PER 1MG) IV PRN (14:45)
[2020-05-13] MEDS ORDERED: diphenhydrAMINE 50MG/ML VIAL (J1200) IV PRN (14:45)
[2020-05-13] MEDS ORDERED: MORPHINE 1MG/ML IN 0.9% NACL 100ML IV BAG As Ordered ONE (15:12)
[2020-05-13 15:17] LABS: ABG BASE EXCESS -2.6 (-2.0-2.0); ABG HCO3 24.7 MEQ/L (22.0-26.0); ABG O2 SATURATION 99.7 % (95.0-99.0); ABG PARTIAL PRESSURE CO2 53.2 mmHg (35.0-45.0); ABG PARTIAL PRESSURE O2 240.4 mmHg (75.0-100.0); ABG STANDARD HCO3 22.3 MEQ/L (22.0-26.0); ABG TOTAL CO2 26.3 MEQ/L (23.0-31.0); ABG pH (ARTERIAL) 7.284 UNITS (7.350-7.450)
[2020-05-13 15:20] LABS: PH BODY FLUID 7.553 UNITS (NOT ESTABLISHED); SOURCE, BODY FLUID pH PERICARDIAL
[2020-05-13 15:22] LABS: SPEC. GRAVITY BODY FLUIDS 1.027 (NOT ESTABLISHED)
[2020-05-13 15:26] LABS: APPEARANCE, BODY FLUID HAZY (CLEAR); SOURCE, BODY FLUID PERICARDIAL
[2020-05-13] MEDS ORDERED: HYDROMORPHONE HCL 0.5 MG/ 0.5 ML SYRINGE (J1170 PER 1) IV PRN (15:30)
[2020-05-13] MEDS ORDERED: oxyCODONE 5MG TAB PO PRN (15:30)
[2020-05-13] MEDS ORDERED: fentaNYL 100 MCG/2 ML INJECTION (J3010) IV PRN (15:30)
[2020-05-13] MEDS ORDERED: LR 1,000 ML IV SCH (15:30)
[2020-05-13] MEDS ORDERED: ONDANSETRON 4MG/2ML VIAL IV PRN (15:30)
[2020-05-13] MEDS ORDERED: METOCLOPRAMIDE INJ 10MG/2ML VIAL (J2765 PER 1) IV PRN (15:30)
[2020-05-13 15:47] LABS: LDH, BODY FLUID 577 U/L (NOT ESTABLISHED); SOURCE, BODY FLUID ALBUMIN PERICARDIAL; SOURCE, BODY FLUID GLUCOSE PERICARDIAL; SOURCE, BODY FLUID LDH PERICARDIAL; SOURCE, BODY FLUID TOT PROTEIN PERICARDIAL; TOTAL PROTEIN, BODY FLUID 4.4 G/DL (NOT ESTABLISHED)
[2020-05-13 15:48] LABS: BASO # 0.1 10^3/uL (0.0-0.2); BASO % 1.1 % (0.0-1.0); EOS # 0.1 10^3/uL (0.0-0.5); EOS % 1.9 % (0.0-3.0); LYMPH # 1.2 10^3/uL (1.5-5.0); LYMPH % 26.2 % (24.0-44.0); MEAN CORPUSCULAR HEMOGLOBIN 25.5 pg (27.0-33.0); MEAN CORPUSCULAR VOLUME 84.9 fl (80.0-96.0); MONO # 0.5 10^3/uL (0.0-0.8); MONO % 9.7 % (0.0-5.0); NEUTROPHILS # 2.8 10^3/uL (1.5-8.5); NEUTROPHILS % 60.7 % (36.0-66.0); PLATELET COUNT, AUTOMATED 107 10^3/uL (150-450); RED BLOOD COUNT 4.71 10^6/uL (4.00-5.40); WHITE BLOOD COUNT 4.6 10^3/uL (4.0-10.0)
[2020-05-13 16:41] LABS: CALCIUM LEVEL 8.4 MG/DL (8.8-10.2); CREATININE FOR GFR 1.16 MG/DL (0.55-1.30); GLOMERULAR FILTRATION RATE 49.8 (>45)
--- NOTE | 2020-05-13 17:00 | REP ---
INDICATION: pericardial effusion, lung ca. COMPARISON: Earlier today FINDINGS: The technique utilized in obtaining the radiograph has magnified the cardiac silhouette and accentuated the interstitial markings. Since the last examination 2 thoracotomy tubes have been placed. Right CP angle blunting seen previously appears to have diminished somewhat. No new abnormal opacities have developed. There is cardiomegaly accentuated by technique. There is no significant change in the osseous structures. IMPRESSION: As above. <Electronically signed by Linwood Corado > 05/13/20 [id number]
--- NOTE | 2020-05-13 19:24 | IPNPDOC ---
Subjective Date Seen The patient was seen on 05/13/20. Subjective Chief Complaint/HPI Mrs. Morejon is a 64 year old female with sarcoidosis and stage 3/4 lung cancer here with progressively worsening dyspnea secondary to pericardial effusion and pleural effusion. She was seen in the morning, prior to going for the pericardial window with Dr. Tran. Still has dyspnea, but denies fever/chills, chest pain, abdominal pain, or dysuria. She is anxious about her pericardial effusion and lung cancer. I was notified later in the day that she had an appointment with oncology, Dr. Regalado tomorrow. Requested Dr. Regalado and Dr. Rodriguez for consultation. Objective Physical Examination General Exam: Positive: Alert, Cooperative, Mild Distress Eye Exam: Positive: EOMI; Negative: Sclera icteric ENT Exam: Positive: Atraumatic Neck Exam: Positive: Supple Chest Exam: Positive: Clear to auscultation, Diminished (In the right lower lobe) Heart Exam: Positive: Rate Normal, Regular Rhythm Abdomen Exam: Positive: Normal bowel sounds, Soft; Negative: Tenderness Extremity Exam: Negative: Cyanosis Neuro Exam: Positive: Cranial Nerves 3-12 NL Psych Exam: Positive: Mental status NL, Anxiety Assessment /Plan Assessment Mrs. Morejon is a 64 year old female with sarcoidosis and stage 3/4 lung cancer here with progressively worsening dyspnea secondary to pericardial effusion and pleural effusion. Today, Dr. Tran will be taking her down to the OR for the effusions. Otherwise, Oncology and Radiation Oncology has been consulted. Recommendations appreciated. Plan/VTE VTE Prophylaxis Ordered?: Yes Plan 1. Pericardial effusion -Demonstrated on CTA that is up to 2.4cm thick -Stat echocardiogram read, may need to be drained soon -CT surgery, Dr. Tran, consulted. Recommendations appreciated. -No uremia, no history of heart disease -May be related to malignancy 2. Pleural effusion -Bilateral pleural effusion -Echocardiogram demonstrates EF of 60% -May be related to malignancy 3. Lung cancer -CTA demonstrates large right hilar perihilar mass -Oncology and Radiation oncology consulted. Recommendations appreciated 4. Hypertension -Blood pressure well controlled -Will hold enalapril, HCTZ, and Toprol XL as SBP on the lower end 5. IDDM -Holding empagliflozin, ozempic, and vilazodone -Carb consistent diet, ISS, and Levemir 6. GERD -Pantoprazole 7. DVT ppx -Heparin VS, I&O, 24H, [facility] Vital Signs/I&O Vital Signs Date Time Temp Pulse Resp B/P (MAP) Pulse Ox O2 Delivery O2 Flow Rate FiO2 05/13/20 19:09 116 16 05/13/20 17:31 97.9 129/67 (87) 96 Nasal Cannula 3.0 I&O- Last 24 Hours up to 6 AM 05/13/20 06:00 Intake Total 990 ml Output Total 500 ml Balance 490 ml Laboratory Data 24H LABS Laboratory Tests 2 05/12/20 19:59: Coronavirus (COVID-19)(PCR) NEGATIVE 05/12/20 21:22: Bedside Glucose (Misc Panel) 206H 05/13/20 05:06: Immature Granulocyte % (Auto) 0.3, Neutrophils (%) (Auto) 65.6, Lymphocytes (%) (Auto) 20.1L, Monocytes (%) (Auto) 11.2H, Eosinophils (%) (Auto) 1.8, Basophils (%) (Auto) 1.0, Neutrophils # (Auto) 2.5, Lymphocytes # (Auto) 0.8L, Monocytes # (Auto) 0.4, Eosinophils # (Auto) 0.1, Basophils # (Auto) 0.0, Nucleated Red Blood Cells % (auto) 0.0, Anion Gap 5L, Glomerular Filtration Rate 49.3, Calcium Level 8.5L 05/13/20 11:12: Lab Scanned Report Miscellaneous Lab 05/13/20 11:48: Bedside Glucose (Misc Panel) 102 05/13/20 13:50: Body Fluid Specific [place] 1.027, Body Fluid pH 7.553, Body Fluid pH Source PERICARDIAL, Body Fluid WBC (Auto) 264H, Body Fluid RBC (Auto) 4, Body Fluid Mononuclear Cells % Auto 84.1H, Fluid Polymorphonuclear Cell % Auto 15.9H, Body Fluid Glucose Source PERICARDIAL, Body Fluid Glucose 114, Body Fluid Protein Source PERICARDIAL, Body Fluid Total Protein 4.4, Body Fluid Albumin Source PERICARDIAL, Body Fluid Albumin 3.0, Body Fluid LDH Source PERICARDIAL, Body F luid Lactate Dehydrogenase 577, Pericardial Fluid Source PERICARDIAL, Pericardial Fluid Color YELLOW, Pericardial Fluid Appearance HAZY 05/13/20 15:05: Bedside Glucose (Misc Panel) 112 05/13/20 15:10: Blood Gas Bicarbonate Standard 22.3, Arterial Blood pH 7.284L, Arterial Blood Partial Pressure CO2 53.2H, Arterial Blood Partial Pressure O2 240.4H, Arterial Blood Total CO2 26.3, Arterial Blood HCO3 24.7, Arterial Blood Base Excess - 2.6L, Arterial Blood Oxygen Saturation 99.7H 05/13/20 15:20: Immature Granulocyte % (Auto) 0.4, Neutrophils (%) (Auto) 60.7, Lymphocytes (%) (Auto) 26.2, Monocytes (%) (Auto) 9.7H, Eosinophils (%) (Auto) 1.9, Basophils (%) (Auto) 1.1H, Neutrophils # (Auto) 2.8, Lymphocytes # (Auto) 1.2L, Monocytes # (Auto) 0.5, Eosinophils # (Auto) 0.1, Basophils # (Auto) 0.1, Nucleated Red Blood Cells % (auto) 0.0, Anion Gap 8, Glomerular Filtration Rate 49.8, Calcium Level 8.4L, Lactate Dehydrogenase 195 05/13/20 17:53: Bedside Glucose (Misc Panel) 119H CBC/BMP Laboratory Tests 05/13/20 05:06 05/13/20 15:20 Microbiology Microbiology 05/13/20 Acid Fast Stain, Received Pending 05/13/20 Mycobacterial Culture, Received Pending 05/13/20 Fungal Smear, Received Pending 05/13/20 Fungal Culture, Received Pending 05/13/20 Gram Stain, Received Pending 05/13/20 Body Fluid Culture, Received Pending 05/13/20 Anaerobic Culture, Received Pending 05/12/20 Blood Culture - Preliminary, Resulted No growth after 24 hours . All specim... 05/12/20 Blood Culture - Preliminary, Resulted No growth after 24 hours . All specim... ASHER ROGERS DO May 13, 2020 19:24
[2020-05-13] MEDS ORDERED: METOPROLOL SUCC (TopROL XL) 50MG **XL** TAB PO SCH (20:15)
[2020-05-13] MEDS: LEVEMIR (INSULIN DETEMIR) 1 UNITS/0.01ML SC SCH (22:07)
[2020-05-14] VITALS (19 sets, daily range): BP systolic 89–130; BP diastolic 50–73
[2020-05-14] MEDS: LEVALBUTEROL 1.25 MG/0.5 ML CONCENTRATE NEB NEB SCH ×4 (02:09→19:39)
[2020-05-14] MEDS: KCL 20MEQ IN D5/NS 1000ML 1,000 ML IV SCH (03:30)
[2020-05-14] MEDS: HEPARIN SOD (PORCINE) 5000UNITS/ML 1ML VIAL/SYRINGE SC SCH ×2 (03:31→20:32)
[2020-05-14] MEDS ORDERED: NS 500 ML IV ONE ×2 (04:15)
[2020-05-14 04:52] LABS: BASO # 0.1 10^3/uL (0.0-0.2); BASO % 0.4 % (0.0-1.0); EOS # 0.1 10^3/uL (0.0-0.5); EOS % 0.4 % (0.0-3.0); HEMATOCRIT 42.3 % (36.0-47.0); HEMOGLOBIN 12.3 g/dl (12.0-15.5); LYMPH # 0.9 10^3/uL (1.5-5.0); LYMPH % 6.4 % (24.0-44.0); MEAN CORPUSCULAR HEMOGLOBIN 25.3 pg (27.0-33.0); MEAN CORPUSCULAR HGB CONC 29.1 g/dl (32.0-36.5); MONO # 1.5 10^3/uL (0.0-0.8); MONO % 11.4 % (0.0-5.0); NEUTROPHILS # 10.8 10^3/uL (1.5-8.5); NEUTROPHILS % 80.8 % (36.0-66.0); PLATELET COUNT, AUTOMATED 143 10^3/uL (150-450); RED BLOOD COUNT 4.86 10^6/uL (4.00-5.40); WHITE BLOOD COUNT 13.4 10^3/uL (4.0-10.0)
[2020-05-14 05:21] LABS: CALCIUM LEVEL 7.7 MG/DL (8.8-10.2); CREATININE FOR GFR 1.98 MG/DL (0.55-1.30); GLOMERULAR FILTRATION RATE 26.8 (>45); POTASSIUM SERUM 5.3 MEQ/L (3.5-5.1)
[2020-05-14] MEDS ORDERED: NS 1,000 ML IV SCH (06:15)
[2020-05-14] MEDS: ONDANSETRON 4MG/2ML VIAL IV PRN (08:23)
[2020-05-14] MEDS: MOM 30ML SUSPENSION UDC PO SCH (09:00)
[2020-05-14] MEDS ORDERED: PATIROMER SORBITEX CALCIUM 8.4 GM POWDER PACKET (VELTASSA) PO ONE (09:00)
--- NOTE | 2020-05-14 09:00 | REP ---
INDICATION: sob, chest tube and pericardial tube. COMPARISON: Comparison chest x-ray May 13, 2020.. TECHNIQUE: Portable sitting AP radiograph. FINDINGS: Two new mediastinal drains are seen consistent with a pericardial drains. There is a large masslike opacity in the right inferior perihilar region which is unchanged. Slight blunting of the right lateral pleural angle is again noted. There is very slight blunting of the left lateral pleural angle today. No new infiltrate. IMPRESSION: Status post pericardial drains. Small bilateral effusions. Right perihilar mass effect persists. <Electronically signed by Shorty Okeefe > 05/14/20 0835
[2020-05-14] MEDS: HumaLOG INSULIN (NovoLOG) PER UNIT SC SCH ×4 (09:01→20:30)
[2020-05-14] MEDS: PANTOPRAZOLE 40MG TAB (PROTONIX) PO SCH (09:02)
[2020-05-14] MEDS: DOCUSATE SODIUM 100 MG CAP PO SCH ×2 (09:02→20:31)
--- NOTE | 2020-05-14 10:13 | RO ---
DATE OF OPERATION: 05/13/2020 PREOPERATIVE DIAGNOSIS: Pericardial effusion, metastatic lung cancer. POSTOPERATIVE DIAGNOSIS: Pericardial effusion, metastatic lung cancer. PROCEDURES: 1. Pericardial window. 2. Pericardiostomy. 3. Distal sternectomy and xiphoidectomy. SURGEON: Alfonso Tran MD LOG SKIDDER: ANESTHESIA: General. FINDINGS: The pericardium had 300 mL of uday fluid. The pericardium, particularly towards the right side, was quite thickened as if there was tumor, although it could have been all sarcoid. Samples were taken of the pericardium on the left and the right in the midline and sent for pathological examination. Pericardial window of approximately 6 cm was created in the right side. DESCRIPTION OF PROCEDURE: Under satisfactory general anesthesia, the patient was prepped and draped in the usual sterile fashion. A subxiphoid midline incision was made and carried down through copious amounts of abdominal adipose tissue. The linea alba was identified and divided. The xiphoid was then released from surrounding tissue and ligaments and completely removed. A portion of the distal sternum was also removed. There were copious amounts of fat and pericardial fat, some which contained nodules and these were also sent for pathological examination. After some period of time, the pericardial fat was removed from the pericardium so that its surface could clearly be seen. Pericardium was incised and the above findings were noted with regard to the volume of fluid. The pericardiostomy was then increased both left and right and particularly on the right where a pericardial window was finally constructed by identifying the pleura and entering the pleural space. A goodly amount of pericardium was removed but not enough to herniate the heart. Two chest tubes were placed; one in the pericardial well and one in the right pleural space. The linea alba was then closed with running 0 Vicryl suture which was then injected with Exparel. The subcutaneous tissue was closed with running 3-0 Vicryl suture and the skin was closed with running 3-0 Monocryl subcuticular suture. The patient tolerated the procedure well and left the operating room in satisfactory condition for the recovery room. AYESHA
--- NOTE | 2020-05-14 10:35 | RADONC.CN ---
Radiation Oncology Hx/Consult Radiation Oncology Consult Date of Service: May 14, 2020 Pt Identifier Mercedes Morejon is a 64 year old female former smoker with a history of sarcoidosis and recently diagnosed NSCLC of the RUL, [id number], with overt BL endobronchial tumor/compression in the BL primary airways, and highly suspicious pericardial and pleural effusions. She has not had complete staging, and is seen today in the ICU s/p pericardial window and chest tube placement on 05/13/[address] Tran for consideration of RT. Diagnosis/Treatment History Oncologic History History of sarcoid, not on immunomodulatory treatment Spring 2019: Developed cough and scant hemoptysis. Summer 2019: Progressive SOB. 03/02/20: CXR showing right perihilar masses/right pleural effusion 04/02/20: CT chest showing BL adenopathy, pericardial effusion and RUL mass 04/22/20: EBUS with Dr. Terrell showing endobronchial NSCLC in the RUL, RLL, and JUAQUIN primary airways 05/08/20: MRI head negative 05/12/20: Presented to ED with mounting SOB. CT angio chest showing increased pericardial and pleural fluid as well as RUL mass >10cm c-c extent with likely satellitoses. Also left sided mediastinal/hilar adenopathy with effacement of the left pulmonary artery and left lobar bronchial narrowing 05/13/20: Pericardial window drain and left chest tube placed by Dr. Tran Interval History She is seen at bedside in the ICU today. She is alert and oriented x3 but does not feel well. She is quite SOB, gasping for breath between words, and nauseous this morning. Has vomited several times including in my presence. We did not broach her history to this point in great detail due to her acute condition. Past Medical History: Sarcoidosis CVD HPL HTN PE Past Surgical History: As above Family History: Sister-colon cancer Social History: Former ~20pk year smoker quit in the Allergies / Meds Allergies: Coded Allergies: citalopram (Verified Adverse Reaction, Severe, jittery, 05/12/20) metformin (Verified Adverse Reaction, Severe, nausea, vomiting, 05/12/20) erythromycin base (Verified Adverse Reaction, Intermediate, vomiting, 04/20/20) azithromycin (Verified Adverse Reaction, Unknown, vomiting, 05/12/20) mirtazapine (Verified Adverse Reaction, Unknown, insomnia, 05/12/20) Home Meds Reported Medications Levalbuterol HCl (Levalbuterol HCl) 0.63 Mg/3 Ml Vial.neb, 0.63 MG NEB Q6H PRN for SHORTNESS OF BREATH, NEB 05/12/20 Insulin Glargine,Hum.rec.anlog (Basaglar Kwikpen U-100) 100 Unit/1 Ml Insuln.pen, 35 UNIT SC QHS 04/20/20 Enalapril Maleate (Enalapril Maleate) 5 Mg Tablet, 5 MG PO DAILY, TAB 04/20/20 Vilazodone HCl (Viibryd) 40 Mg Tablet, 40 MG PO DAILY, TAB 04/20/20 Hydrochlorothiazide (Hydrochlorothiazide) 12.5 Mg Capsule, 12.5 MG PO DAILY, CAP 04/20/20 Lovastatin (Lovastatin) 20 Mg Tablet, 20 MG PO QHS, TAB 04/20/20 Semaglutide (Ozempic) 0.25 Mg/0.2 Ml Pen.injctr, 0.5 MG SC QWEEK Monday04/20/20 Empagliflozin (Jardiance) 10 Mg Tablet, 10 MG PO DAILY, TAB 04/20/20 Pantoprazole Sodium (Pantoprazole Sodium) 40 Mg Tablet.dr, 40 MG PO DAILY, TAB 04/20/20 Metoprolol Succinate (Metoprolol Succinate) 50 Mg Tab.er.24h, 50 MG PO DAILY, TAB 04/20/20 Discontinued Reported Medications Prednisone (Prednisone) 10 Mg Tab.ds.pk, PO, SIOMARA 04/20/20 Levalbuterol Hydrochloride (Xopenex Hfa) 15 Gm Hfa.aer.ad, 2 PUFF INH Q4-6HP PRN for wheezing, #15 GRAM 04/20/20 Review of Systems General: Reports: ROS Unobtainable (Patient's respiratory status was prohibitive) Vital Signs Vital Signs Date Time Temp Pulse Resp B/P (MAP) Pulse Ox O2 Delivery O2 Flow Rate FiO2 05/14/20 08:00 2.0 05/14/20 08:00 97.3 104 16 91/58 (69) 97 Nasal Cannula General Exam: Positive: Alert, Cooperative, Moderate Distress (Gasping, coughing, vomiting), Oriented Times Three Eye Exam: Positive: PERRLA, EOMI ENT EXAM: Positive: Atraumatic Neck Exam: Positive: Supple Chest Exam: Negative: Other (Deferred ) Heart Exam: Negative: Other (Deferred auscultation. Pericardial drain in place. Right chest tube in place) Neuro Exam: Positive: Normal Speech, Cranial Nerves 3-12 NL Psych Exam: Positive: Mental status NL, Memory Intact Diagnostic and Laboratory Diagnostic Review Radiologic images, relevant labs and pathology reports were personally reviewed and discussed with Ms. Morejon. Laboratory Tests 05/12/20 12:49 05/13/20 05:06 05/13/20 15:20 05/14/20 04:36 Laboratory Tests 05/12/20 12:49: White Blood Count 6.8, Red Blood Count 5.12, Hemoglobin 13.4, Hematocrit 42.6, Mean Corpuscular Volume 83.2, Mean Corpuscular Hemoglobin 26.2L, Mean Corpuscular Hemoglobin Concent 31.5L, Red Cell Distribution Width 16.4H, Platelet Count 151, Immature Granulocyte % (Auto) 0.1, Neutrophils (%) (Auto) 67.8H, Lymphocytes (%) (Auto) 19.0L, Monocytes (%) (Auto) 10.1H, Eosinophils (%) (Auto) 2.1, Basophils (%) (Auto) 0.9, Neutrophils # (Auto) 4.6, Lymphocytes # (Auto) 1.3L, Monocytes # (Auto) 0.7, Eosinophils # (Auto) 0.1, Basophils # (Auto) 0.1, Nucleated Red Blood Cells % (auto) 0.0, Total Bilirubin 1.0, Direct Bilirubin 0.2, Aspartate Amino Transf (AST/SGOT) 33, Alanine Aminotransferase (ALT/SGPT) 36, Alkaline Phosphatase 232H, ZS-Uim-N-Type Natriuretic Peptide 118, Total Protein 6.4, Albumin 3.4, Albumin/Globulin Ratio 1.1L, Thyroid Stimulating Hormone (TSH) 0.472 05/12/20 12:50: POC Glucose (Misc Panel) 155H, POC Sodium (Misc Panel) 133L, POC Potassium (Misc Panel) 3.8, POC Chloride (Misc Panel) 98, POC Total CO2 (Misc Panel) 26.0, POC Blood Urea Nitrogen (Misc Panel 25, POC Ionized Calcium (Misc Panel) 4.5, POC Creatinine (Misc Panel) 1.3, POC Hematocrit (Misc Panel) 42.0 05/12/20 12:58: POC Lactate (Misc Panel) 1.54 05/12/20 13:00: POC Troponin I (Misc) 0.01 05/12/20 14:54: Blood Gas Bicarbonate Standard 24.0, Arterial Blood pH 7.419, Arterial Blood Partial Pressure CO2 37.3, Arterial Blood Partial Pressure O2 70.7L, Arterial Blood Total CO2 24.7, Arterial Blood HCO3 23.6, Arterial Blood Base Excess -0.6, Arterial Blood Oxygen Saturation 94.7L, Arterial Blood Gas Puncture Site RT BRACHIAL 05/12/20 17:32: Bedside Glucose (Misc Panel) 95 05/12/20 19:59: Coronavirus (COVID-19)(PCR) NEGATIVE 05/12/20 21:22: Bedside Glucose (Misc Panel) 206H 05/13/20 05:06: White Blood Count 3.8L, Red Blood Count 4.55, Hemoglobin 11.3#L, Hematocrit 38.2, Mean Corpuscular Volume 84.0, Mean Corpuscular Hemoglobin 24.8L, Mean Corpuscular Hemoglobin Concent 29.6L, Red Cell Distribution Width 16.5H, Platelet Count 109L, Immature Granulocyte % (Auto) 0.3, Neutrophils (%) (Auto) 65.6, Lymphocytes (%) (Auto) 20.1L, Monocytes (%) (Auto) 11.2H, Eosinophils (%) (Auto) 1.8, Basophils (%) (Auto) 1.0, Neutrophils # (Auto) 2.5, Lymphocytes # (Auto) 0.8L, Monocytes # (Auto) 0.4, Eosinophils # (Auto) 0.1, Basophils # (Auto) 0.0, Nucleated Red Blood Cells % (auto) 0.0, Sodium Level 137, Potassium Level 4.0, Chloride Level 102, Carbon Dioxide Level 30, Anion Gap 5L, Blood Urea Nitrogen 21H, Creatinine 1.17, Glomerular Filtration Rate 49.3, Fasting Glucose 139H, Calcium Level 8.5L 05/13/20 11:12: Lab Scanned Report Miscellaneous Lab 05/13/20 11:48: Bedside Glucose (Misc Panel) 102 05/13/20 13:50: Body Fluid Specific [place] 1.027, Body Fluid pH 7.553, Body Fluid pH Source PERICARDIAL, Body Fluid WBC (Auto) 264H, Body Fluid RBC (Auto) 4, Body Fluid Mononuclear Cells % Auto 84.1H, Fluid Polymorphonuclear Cell % Auto 15.9H, Body Fluid Glucose Source PERICARDIAL, Body Fluid Glucose 114, Body Fluid Protein Source PERICARDIAL, Body Fluid Total Protein 4.4, Body Fluid Albumin Source PERICARDIAL, Body Fluid Albumin 3.0, Body Fluid LDH Source PERICARDIAL, Body Fluid Lactate Dehydrogenase 577, Pericardial Fluid Source PERICARDIAL, Pericardial Fluid Color YELLOW, Pericardial Fluid Appearance HAZY 05/13/20 15:05: Bedside Glucose (Misc Panel) 112 05/13/20 15:10: Blood Gas Bicarbonate Standard 22.3, Arterial Blood pH 7.284L, Arterial Blood Partial Pressure CO2 53.2H, Arterial Blood Partial Pressure O2 240.4H, Arterial Blood Total CO2 26.3, Arterial Blood HCO3 24.7, Arterial Blood Base Excess - 2.6L, Arterial Blood Oxygen Saturation 99.7H 05/13/20 15:20: White Blood Count 4.6, Red Blood Count 4.71, Hemoglobin 12.0, Hematocrit 40.0, Mean Corpuscular Volume 84.9, Mean Corpuscular Hemoglobin 25.5L, Mean Corpuscular Hemoglobin Concent 30.0L, Red Cell Distribution Width 16.6H, Platelet Count 107L, Immature Granulocyte % (Auto) 0.4, Neutrophils (%) (Auto) 60.7, Lymphocytes (%) (Auto) 26.2, Monocytes (%) (Auto) 9.7H, Eosinophils (%) (Auto) 1.9, Basophils (%) (Auto) 1.1H, Neutrophils # (Auto) 2.8, Lymphocytes # (Auto) 1.2L, Monocytes # (Auto) 0.5, Eosinophils # (Auto) 0.1, Basophils # (Auto) 0.1, Nucleated Red Blood Cells % (auto) 0.0, Sodium Level 139, Potassium Level 4.0, Chloride Level 106, Carbon Dioxide Level 25, Anion Gap 8, Blood Urea Nitrogen 16, Creatinine 1.16, Glomerular Filtration Rate 49.8, Fasting Glucose 110H, Calcium Level 8.4L, Lactate Dehydrogenase 195 05/13/20 17:53: Bedside Glucose (Misc Panel) 119H 05/13/20 20:41: Bedside Glucose (Misc Panel) 177H 05/14/20 04:36: White Blood Count 13.4H, Red Blood Count 4.86, Hemoglobin 12.3, Hematocrit 42.3, Mean Corpuscular Volume 87.0, Mean Corpuscular Hemoglobin 25.3L, Mean Corpuscular Hemoglobin Concent 29.1L, Red Cell Distribution Width 16.8H, Platelet Count 143L, Immature Granulocyte % (Auto) 0.6, Neutrophils (%) (Auto) 80.8H, Lymphocytes (%) (Auto) 6.4L, Monocytes (%) (Auto) 11.4H, Eosinophils (%) (Auto) 0.4, Basophils (%) (Auto) 0.4, Neutrophils # (Auto) 10.8H, Lymphocytes # (Auto) 0.9L, Monocytes # (Auto) 1.5H, Eosinophils # (Auto) 0.1, Basophils # (Auto) 0.1, Nucleated Red Blood Cells % (auto) 0.0, Sodium Level 137, Potassium Level 5.3H, Chloride Level 108H, Carbon Dioxide Level 23, Anion Gap 6L, Blood Urea Nitrogen 20H, Creatinine 1.98#H, Glomerular Filtration Rate 26.8L, Fasting Glucose 259H, Calcium Level 7.7L, JF-Zxy-V-Type Natriuretic Peptide 2259H Assessment and Plan Impression Ms. Morejon is a 64 year old female former smoker with a history of sarcoidosis and recently diagnosed NSCLC of the RUL, [id number], with overt BL endobronchial tumor/compression in the BL primary airways, and highly suspicious pericardial and pleural effusions. She has not had complete staging, and is seen today in the ICU s/p pericardial window and chest tube placement on 05/13/[address] Tran for consideration of RT. 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 Morejon regarding the diagnosis at hand and available therapeutic options. She has not been completely staged. A PET scan was ordered by Dr. Trerell but was unable to be completed this week. I recommend she had a CT abdomen and pelvis with contrast while inpatient to expedite oncologic decision making. With respect to her chest disease, her pericardial fluid is highly exudative and given her clinical picture it is most likely malignant. This would render her stage Lamberto (at least). She has a very large primary tumor in the RUL and to my eye overt satellitosis. She has contralateral endobronchial involvement as well. All told I do not think this disease burden is amenable to definitive dose radiotherapy, however I believe that aggressive palliative RT to her chest disease would be of benefit as she is so floridly symptomatic. A split-course approach of 25 Gy in 10 fractions followed by a 2 week break and then if she remains stable or does not acutely decompensate a further 25 Gy in 10 fractions, is what I recommend (per Fely et al JTO 2010). This could be done with concurrent systemic therapy if deemed appropriate by medical oncology who has also been consulted. I did discuss her staging and potential treatments with her briefly, however, her condition this morning was not good, she was actively vomiting and acutely SOB. Therefore I would prefer to revisit my particular RT recommendations when she is more stable, I will come by her room tomorrow and see how she is doing. We briefly discussed the logistics of receiving radiation therapy in detail including the need for a 1-time planning session which could occur as soon as tomorrow afternoon if she is more comfortable, or on Monday05/18/20. Treatment could then be started inpatient or, if she is discharged she could begin as an outpatient. After discussing the risks, benefits and alternatives to radiation therapy, Ms. Morejon was amenable to pursuing radiotherapy in general, pending discussion with her . We instructed the patient that if there were any questions,concerns or changes in clinical status in the interim to contact us, my contact information was left with the patient and I will come visit her again tomorrow, hopefully she will feel well enough to talk in more detail. Recommendations Palliative RT as above, favor split course approach 50 Gy in 20 fractions to chest disease with intervening 2 week break after 25 Gy Medical oncology consult for consideration of systemic therapy Please obtain CT abdomen and pelvis with contrast while inpatient to complete initial staging Defer on utility of outpatient PET-CT in this setting to medical oncology PATEL RUSSO MD May 14, 2020 09:58
[2020-05-14] MEDS ORDERED: FUROSEMIDE 40MG/4ML VIAL (J1940) IV ONE (11:30)
[2020-05-14] MEDS ORDERED: HEPARIN SOD (PORCINE) 5000UNITS/ML 1ML VIAL/SYRINGE SQ ONE (11:30)
[2020-05-14] MEDS ORDERED: PROMETHAZINE INJ 25 MG/ML VIAL (J2550) As Ordered ONE (11:54)
[2020-05-14] MEDS ORDERED: PROMETHAZINE INJ 25 MG/ML VIAL (J2550) IV ONE (12:00)
[2020-05-14 13:28] LABS: CREATININE FOR GFR 2.16 MG/DL (0.55-1.30); GLOMERULAR FILTRATION RATE 24.3 (>45); POTASSIUM SERUM 5.5 MEQ/L (3.5-5.1)
[2020-05-14 13:29] LABS: CALCIUM LEVEL 8.3 MG/DL (8.8-10.2)
[2020-05-14 14:25] LABS: ABG BASE EXCESS -4.2 (-2.0-2.0); ABG HCO3 22.8 MEQ/L (22.0-26.0); ABG O2 SATURATION 98.4 % (95.0-99.0); ABG PARTIAL PRESSURE CO2 49.1 mmHg (35.0-45.0); ABG PARTIAL PRESSURE O2 106.4 mmHg (75.0-100.0); ABG STANDARD HCO3 21.1 MEQ/L (22.0-26.0); ABG TOTAL CO2 24.3 MEQ/L (23.0-31.0); ABG pH (ARTERIAL) 7.285 UNITS (7.350-7.450)
--- NOTE | 2020-05-14 14:40 | REP ---
INDICATION: JOEL, anuria. COMPARISON: None. TECHNIQUE: Renal slow and urinary tract sonography. FINDINGS: Scanning of the level of the urinary bladder demonstrates a Cosby catheter in place. No other finding.. Renal cortical echogenicity pattern is increased consistent with chronic medical renal disease bilaterally.. There is no evidence of hydronephrosis, cyst, mass, or calculus in either kidney. The right kidney measures 9.8 x 5.4 x 4.4 cm. Left renal dimensions are 10.7 x 5.9 x 5.3 cm. IMPRESSION: Increased renal cortical echogenicity pattern bilaterally consistent with chronic medical renal disease. Cosby catheter in the urinary bladder. Otherwise negative.. <Electronically signed by Shorty Okeefe > 05/14/20 [id number]
--- NOTE | 2020-05-14 14:53 | IPNPDOC ---
Subjective Date Seen The patient was seen on 05/14/20. Subjective Chief Complaint/HPI Mrs. Morejon is a 64 year old female with sarcoidosis and stage 3/4 lung cancer here with progressively worsening dyspnea secondary to pericardial effusion and pleural effusion. Yesterday, she went for pericardial window and chest tube placement for pleural effusion. After the procedure, she was given a total of 1L NS bolus and her lactated ringers at 75mL/hr was changed to NS 150mg/hr. This morning, she still was having poor output. Lung sounds were coarse. Check a Pro- BNP which increased from 118 two days ago to 2259 today. Creatinine also increased from 1.16 yesterday to 1.98 today. Stopped IV fluids, ordered kidney ultrasound, and consulted nephrology. Recommendations appreciated. Otherwise, patient denies any fever/chills or chest pain. She has dyspnea and nausea with emesis x1. Objective Physical Examination General Exam: Positive: Alert, Cooperative, Mild Distress Eye Exam: Positive: EOMI; Negative: Sclera icteric ENT Exam: Positive: Atraumatic Neck Exam: Positive: Supple Chest Exam: Positive: Clear to auscultation, Diminished (In the right lower lobe) Heart Exam: Positive: Rate Normal, Regular Rhythm Abdomen Exam: Positive: Normal bowel sounds, Soft; Negative: Tenderness Extremity Exam: Negative: Cyanosis Neuro Exam: Positive: Cranial Nerves 3-12 NL Psych Exam: Positive: Mental status NL, Anxiety Assessment /Plan Assessment Mrs. Morejon is a 64 year old female with sarcoidosis and stage 3/4 lung cancer here with progressively worsening dyspnea secondary to pericardial effusion and pleural effusion. On 05/13/2020, Dr. Tran placed a pericardial window and chest tubes. Later that night, patient started to have anuria. They gave a total of 1 L NS and started fluids running at 150mL/hr of NS. BNP increased from 118 to 2259 and creatinine increased from 1.16 to 1.98. Stopped IV fluids. Consulted nephrology for JOEL. Recommendations appreciated. Otherwise, Oncology and Radiation Oncology have both been consulted. Recommendations appreciated. Unable to obtain CT abd/pelvis with contrast at this time due to JOEL and anuria Plan/VTE VTE Prophylaxis Ordered?: Yes Plan 1. Pericardial effusion -Demonstrated on CTA that is up to 2.4cm thick -CT surgery, Dr. Tran, consulted. Recommendations appreciated. OR on 05/13/2020 for pericardial window -Most likely secondary to malignancy 2. Pleural effusion -Bilateral pleural effusion -Echocardiogram demonstrates EF of 60% -Most likely secondary to malignancy 3. Lung cancer -CTA demonstrates large right hilar perihilar mass -Oncology and Radiation oncology consulted. Recommendations appreciated -Unable to perform CT abd/pelvis with contrast due to JOEL, may try when renal function improves 4. JOEL -Patient anuric evening of 05/13/2020 -Creatinine increased from 1.16 to 1.98 -Nephrology consulted, recommendations appreciated 5. Hypertension -Blood pressure well controlled -Will hold enalapril, HCTZ, and Toprol XL as patient is hypotensive 6. IDDM -Holding empagliflozin, ozempic, and vilazodone -Carb consistent diet, ISS, and Levemir 7. GERD -Pantoprazole 8. DVT ppx -Heparin VS, I&O, 24H, Fishbone Vital Signs/I&O Vital Signs Date Time Temp Pulse Resp B/P (MAP) Pulse Ox O2 Delivery O2 Flow Rate FiO2 05/14/20 12:00 1.0 05/14/20 12:00 98.0 98 19 93/51 (65) 96 Nasal Cannula I&O- Last 24 Hours up to 6 AM 05/14/20 06:00 Intake Total 4150 ml Output Total 1108 ml Balance 3042 ml Laboratory Data 24H LABS Laboratory Tests 2 05/13/20 15:05: Bedside Glucose (Misc Panel) 112 05/13/20 15:10: Blood Gas Bicarbonate Standard 22.3, Arterial Blood pH 7.284L, Arterial Blood Partial Pressure CO2 53.2H, Arterial Blood Partial Pressure O2 240.4H, Arterial Blood Total CO2 26.3, Arterial Blood HCO3 24.7, Arterial Blood Base Excess - 2.6L, Arterial Blood Oxygen Saturation 99.7H 05/13/20 15:20: Immature Granulocyte % (Auto) 0.4, Neutrophils (%) (Auto) 60.7, Lymphocytes (%) (Auto) 26.2, Monocytes (%) (Auto) 9.7H, Eosinophils (%) (Auto) 1.9, Basophils (%) (Auto) 1.1H, Neutrophils # (Auto) 2.8, Lymphocytes # (Auto) 1.2L, Monocytes # (Auto) 0.5, Eosinophils # (Auto) 0.1, Basophils # (Auto) 0.1, Nucleated Red Bl ood Cells % (auto) 0.0, Anion Gap 8, Glomerular Filtration Rate 49.8, Calcium Level 8.4L, Lactate Dehydrogenase 195 05/13/20 17:53: Bedside Glucose (Misc Panel) 119H 05/13/20 20:41: Bedside Glucose (Misc Panel) 177H 05/14/20 04:36: Immature Granulocyte % (Auto) 0.6, Neutrophils (%) (Auto) 80.8H, Lymphocytes (%) (Auto) 6.4L, Monocytes (%) (Auto) 11.4H, Eosinophils (%) (Auto) 0.4, Basophils (%) (Auto) 0.4, Neutrophils # (Auto) 10.8H, Lymphocytes # (Auto) 0.9L, Monocytes # (Auto) 1.5H, Eosinophils # (Auto) 0.1, Basophils # (Auto) 0.1, Nucleated Red Blood Cells % (auto) 0.0, Anion Gap 6L, Glomerular Filtration Rate 26.8L, Calcium Level 7.7L, PT-Sfe-X-Type Natriuretic Peptide 2259H 05/14/20 08:44: Bedside Glucose (Misc Panel) 257H 05/14/20 11:35: Bedside Glucose (Misc Panel) 167H 05/14/20 12:47: Anion Gap 4L, Glomerular Filtration Rate 24.3L, Calcium Level 8.3L 05/14/20 14:06: Blood Gas Bicarbonate Standard 21.1L, Arterial Blood pH 7.285L, Arterial Blood Partial Pressure CO2 49.1H, Arterial Blood Partial Pressure O2 106.4H, Arterial Blood Total CO2 24.3, Arterial Blood HCO3 22.8, Arterial Blood Base Excess - 4.2L, Arterial Blood Oxygen Saturation 98.4 CBC/BMP Laboratory Tests 05/13/20 15:20 05/14/20 04:36 05/14/20 12:47 Microbiology Microbiology 05/13/20 Acid Fast Stain, Received Pending 05/13/20 Mycobacterial Culture, Received Pending 05/13/20 Fungal Smear, Received Pending 05/13/20 Fungal Culture, Received Pending 05/13/20 Gram Stain - Final, Resulted 05/13/20 Body Fluid Culture, Resulted Pending 05/13/20 Anaerobic Culture, Resulted Pending 05/12/20 Blood Culture - Preliminary, Resulted No Growth after 48 hours. All Specime... 05/12/20 Blood Culture - Preliminary, Resulted No Growth after 48 hours. All Specime... ASHER ROGERS DO May 14, 2020 14:53
[2020-05-14 16:40] LABS: ALBUMIN 2.7 GM/DL (3.2-5.2); CALCIUM LEVEL 8.3 MG/DL (8.8-10.2); CREATININE FOR GFR 2.1 MG/DL (0.55-1.30); GLOMERULAR FILTRATION RATE 25.1 (>45); PHOSPHORUS LEVEL 3.5 MG/DL (2.5-4.9); POTASSIUM SERUM 5.2 MEQ/L (3.5-5.1)
--- NOTE | 2020-05-14 19:16 | CR.PDOC ---
General Date of Consultation: May 14, 2020 Referring Provider: A Primary Care Physician: Matt Huynh Attending Physician: JOHN POPE MD Consultation REASON FOR CONSULTATION/CHIEF COMPLAINT: Metastatic adenocarcinoma of the lung. HISTORY OF PRESENT ILLNESS: [I had the pleasure of seeing Ms. Mercedes Morejon in consultation for metastatic adenocarcinoma of the lung. As you know Ms. Morejon is a 64-year-old white female who was diagnosed to have adenocarcinoma of the lung on recent investigations. Ms. Morejon is a 64 years old white female who has history of sarcoidosis, hypertension, and NIDDM and hyperlipidemia. Her sarcoidosis was diagnosed many years ago and did not require any treatment. She has been having increasing symptoms of cough and shortness of breath and initially chest x-ray revealed the breast in the right middle lobe and was treated for pneumonia with antibiotics. Since condition did not resolve so a CT scan was done which revealed mass in the right upper lung and pneumonia with mass in mid the lung and perihilar lymphadenopathy. There was other nodular infiltrates in the lower lobe as well as in the left upper lobe. An infectious etiology versus post obstructive pneumonia was suspected. She was seen by Dr. Terrell in consultation and bronchoscopy and EBUS with FNA was suggested. Patient underwent bronchoscopy with bronchoalveolar early September and bronchoalveolar brushing. Patient also underwent FNA of the left hilar lymph node. Bronchoal veolar liver arch of the left upper lobe was positive for malignancy and right upper lobe bronchoalveolar lavage also revealed malignant cells. Right upper lobe cross bronchial biopsy was positive for adenocarcinoma right lower lobe transbronchial biopsy was also positive for adenocarcinoma, transbronchial biopsy of the left upper lobe also revealed adenocarcinoma. Cells were positive for TTF-1. Molecular testing on the specimen were found to be positive for PDL1 25% Ross 1 gene rearrangement was negative, BRAF mutation was found to be positive. ALK Fish testing is still pending. Patient was seen in consultation by Dr. Tran repeat CT of the chest revealed pericardial effusion and Dr. Yang son date surgery and made a pericardial window on 05/13/2020. Mercedes currently is postop and still has a drain coming out of lower chest and is draining blood-tinged liquid. She is comfortable but looks weak. She has at this moment no cough or phlegm. She has some local discomfort at the site of amalia in insertion. She does not have nausea vomiting abdominal pain or diarrhea. She denies headache or dizziness. She has no urinary symptoms. ALLERGIES: Please see below. HOME MEDICATIONS: Please see below. PAST MEDICAL HISTORY: 1. NIDDM. 2. HTN. 3. GERD 4. Psoriasis 5. Sarcoidosis during mediastinoscope he PAST SURGICAL HISTORY: 1. Hernia repair 2. Hysterectomy 3. Mediastinoscopy 4. Tendon surgery Family history: History of congestive heart failure and mother COPD and father colon cancer and sister no family history of lung cancer SOCIAL HISTORY: Patient is a former smoker and smoked 12 cigarettes a day for 20 years quit in 1992. No alcohol abuse. 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 Physical examination: Gen. a pleasant female looks very weak and lethargic and drowsy but in no acute distress HEENT WNL EOMI oral cavity clear without mucositis or thrush Cardiac: A chest tube noted coming out of the lower end of the chest and going to under waterseal drainage. Cardiac sounds are normal Lungs diminished air entry bilaterally Abdomen soft also and present Dora splenomegaly Neurological: Moving all 4 limbs without focal deficit. Detailed neurological examination is not done today. Lymph node survey none palpable in cervical supraclavicular or axillary region LABORATORY DATA: Please see below. ASSESSMENT/PLAN: Ms. Mercedes Morejon is a 64-year-old white female who has history of sarcoidosis and has been having increasing shortness of breath and cough. CT scan revealed masses in the right upper chest and left chest is hilar lymphadenopathy. Invest igation. Bronchoscopy and BAL and transbronchial FNA of the lymph nodes and tumor revealed adenocarcinoma. Adenocarcinoma is positive for PDL1 25% and positive for BRAF mutation. It was negative for Ross 1, ALK Fish testing is pending. Patient is recovering after surgical procedure and still very weak to discuss in detail about possible treatment. Since she is PDL 1 positive will start her on PEMBROLIZUMAB based treatment. If she gain enough strength we may add chemotherapy with carboplatin, Alimta and PEMBROLIZUMAB. If patient remained frail with poor performance status single agent PEMBROLIZUMAB will be given although results are better been added to his chemotherapy. Patient has BRAF mutation and BRAF and MEK inhibitors will also be used if needed. Patient ALK mutation results are still pending and if she is found to be positive for ALK mutation then anti- ALK therapy will be the preference. Couldn't discuss with the patient in detail since she is still very weak. Once she recovers from her current condition will follow her as outpatient to discuss further details of her management. In this condition she is not curable although very much manageable depending on her tolerance and effectiveness of treatment. Vital Signs/I&O Vital Signs Date Time Temp Pulse Resp B/P (MAP) Pulse Ox O2 Delivery O2 Flow Rate FiO2 05/14/20 16:00 98.1 100 18 130/61 (84) 99 Nasal Cannula 1.0 I&O- Last 24 Hours up to 6 AM 05/14/20 06:00 Intake Total 4150 ml Output Total 1108 ml Balance 3042 ml Laboratory Data Labs 24H CBC/BMP Laboratory Tests 05/14/20 04:36 05/14/20 12:4 05/14/20 16:02 Microbiology Allergies Coded Allergies: citalopram (Verified Adverse Reaction, Severe, jittery, 05/12/20) metformin (Verified Adverse Reaction, Severe, nausea, vomiting, 05/12/20) erythromycin base (Verified Adverse Reaction, Intermediate, vomiting, 04/20/20) azithromycin (Verified Adverse Reaction, Unknown, vomiting, 05/12/20) mirtazapine (Verified Adverse Reaction, Unknown, insomnia, 05/12/20) Home Medications Scheduled Empagliflozin (Jardiance) 10 Mg Tablet, 10 MG PO DAILY, (Reported) Enalapril Maleate (Enalapril Maleate) 5 Mg Tablet, 5 MG PO DAILY, (Reported) Hydrochlorothiazide (Hydrochlorothiazide) 12.5 Mg Capsule, 12.5 MG PO DAILY, (Reported) Insulin Glargine,Hum.rec.anlog (Basaglar Kwikpen U-100) 100 Unit/1 Ml Insuln.pen, 35 UNIT SC QHS, (Reported) Lovastatin (Lovastatin) 20 Mg Tablet, 20 MG PO QHS, (Reported) Metoprolol Succinate (Metoprolol Succinate) 50 Mg Tab.er.24h, 50 MG PO DAILY, (Reported) Pantoprazole Sodium (Pantoprazole Sodium) 40 Mg Tablet.dr, 40 MG PO DAILY, (Reported) Semaglutide (Ozempic) 0.25 Mg/0.2 Ml Pen.injctr, 0.5 MG SC QWEEK, (Reported) MONDAY Vilazodone HCl (Viibryd) 40 Mg Tablet, 40 MG PO DAILY, (Reported) Scheduled PRN Levalbuterol HCl (Levalbuterol HCl) 0.63 Mg/3 Ml Vial.neb, 0.63 MG NEB Q6H PRN for SHORTNESS OF BREATH, (Reported) JOHN POPE MD May 14, 2020 19:16
[2020-05-14] MEDS: LEVEMIR (INSULIN DETEMIR) 1 UNITS/0.01ML SC SCH (20:32)
[2020-05-15] VITALS (13 sets, daily range): BP systolic 91–123; BP diastolic 50–77
[2020-05-15] MEDS: LEVALBUTEROL 1.25 MG/0.5 ML CONCENTRATE NEB NEB SCH ×4 (02:18→18:37)
[2020-05-15 04:47] LABS: BASO # 0.1 10^3/uL (0.0-0.2); BASO % 0.7 % (0.0-1.0); EOS # 0.1 10^3/uL (0.0-0.5); EOS % 0.9 % (0.0-3.0); HEMATOCRIT 38.5 % (36.0-47.0); HEMOGLOBIN 11.7 g/dl (12.0-15.5); LYMPH # 0.9 10^3/uL (1.5-5.0); LYMPH % 10.7 % (24.0-44.0); MEAN CORPUSCULAR HEMOGLOBIN 25.8 pg (27.0-33.0); MEAN CORPUSCULAR HGB CONC 30.4 g/dl (32.0-36.5); MONO # 0.8 10^3/uL (0.0-0.8); MONO % 9.5 % (0.0-5.0); NEUTROPHILS # 6.6 10^3/uL (1.5-8.5); NEUTROPHILS % 77.7 % (36.0-66.0); RED BLOOD COUNT 4.53 10^6/uL (4.00-5.40); WHITE BLOOD COUNT 8.5 10^3/uL (4.0-10.0)
[2020-05-15 05:00] LABS: PLATELET COUNT, AUTOMATED 94 10^3/uL (150-450)
[2020-05-15 05:20] LABS: CALCIUM LEVEL 8.2 MG/DL (8.8-10.2); CREATININE FOR GFR 1.68 MG/DL (0.55-1.30); GLOMERULAR FILTRATION RATE 32.5 (>45); POTASSIUM SERUM 5.1 MEQ/L (3.5-5.1)
--- NOTE | 2020-05-15 07:03 | CR ---
DATE OF CONSULTATION: 05/14/2020 CONSULTATION FOR: Neymar Carter D.O. REASON FOR CONSULTATION: Acute renal failure. HISTORY OF PRESENT ILLNESS: Mrs. Morejon is a 64-year-old female with known history of hypertension, type 2 diabetes, and sarcoidosis. She has progressively worsening dyspnea since November and has been treated for possible pneumonia twice; however, her symptoms did not improve. She was recently seen by pulmonary and sent to emergency room, as she was felt to have a lung mass on her imaging. In the emergency room, a CT angiogram was done on the day of admission, which did not show any pulmonary embolus, however, showed a large right-sided mass, right pleural effusion, and pericardial effusion. Since then she had drainage of pericardial and pleural effusions and has tube in her right chest and pericardial cavity. Patient has developed oliguric acute renal failure despite intravenous (IV) fluids given yesterday. This morning she developed worsening shortness of breath and elevated brain natriuretic peptic (BNP) level, due to which IV fluid has been stopped, and a nephrology consultation was requested. Patient is seen in the intensive care unit. MEDICAL HISTORY: Significant for: 1. Longstanding diabetes. 2. Hypertension. 3. Sarcoidosis. 4. History of prior pulmonary embolism. 5. History of gastroesophageal reflux disease. 6. Psoriasis. SURGICAL HISTORY: Significant for: 1. Hysterectomy. 2. Hernia repair. 3. Now she has pericardial window with pericardial tube and right chest tube. HOME MEDICATIONS: - Jardiance 10 mg daily - enalapril 5 mg daily - hydrochlorothiazide 12.5 mg daily - insulin 35 units daily - lovastatin 20 mg daily - metoprolol 50 mg daily - pantoprazole 40 mg daily - Ozempic 0.5 mg once a week ALLERGIES: She has multiple allergies, including METFORMIN, ERYTHROMYCIN, MIRTAZAPINE, and CITALOPRAM. FAMILY HISTORY: Significant for emphysema in her father and congestive heart failure (CHF) in her mother. No family history for kidney problems. PERSONAL AND SOCIAL HISTORY: Patient is a former smoker who quit in 1993. Denies any alcohol or drug use. REVIEW OF SYSTEMS: Patient is quite short of breath at present, sitting at the edge of bed. She has been short of breath since November, which progressively worsened. She denies any fever or chills. At present. Ears, nose, and throat are unremarkable. Cardiovascular system is negative for chest pain. She has large pericardial effusion, which has been drained. Respiratory system is as per history of present illness. Right-sided large mass in perihilar area is noted, and a pleural effusion has been drained. Gastrointestinal (GI) system is negative for vomiting or diarrhea. Genitourinary system is significant for decreased urine output. She had a Cosby catheter in place. Musculoskeletal system negative for leg edema. Skin is negative for rash or ulcers. She does have history of sarcoidosis. Hematological system is negative for any long-term anticoagulation. She denies any excessive bleeding. Neurological system negative for seizures or stroke. Psychosocial system negative for depression or anxiety. PHYSICAL EXAMINATION: Temperature 98 degrees Fahrenheit, heart rate about 100 per minute, respiratory rate 18 per minute, blood pressure 103/62 mm of mercury, and oxygen saturation 92% on room air. Head is atraumatic. Neck supple, and jugular venous distention (JVD) difficult to be assessed. Lungs have bilateral rales. She has chest tubes anteriorly, which are draining serosanguineous fluid. Heart sound are tachycardic but without a pericardial friction rub. Abdomen soft and nontender, and bowel sounds are normal. Extremities without any cyanosis or clubbing. She does not have any peripheral edema at present. Neurologically, she is awake and at her baseline mentation without a focal deficit. Today's labs show sodium 137, potassium 5.3, CO2 of 23, BUN 20, and creatinine 1.98. Yesterday her creatinine was 1.17. WBC count is 13.4, hemoglobin 12.3, and hematocrit 42.3. Platelets 143. PROBLEMS: 1. Acute renal failure superimposed on chronic kidney disease. Etiology is most likely IV contrast given on May [address] angiogram. She probably has mild underlying chronic kidney disease. At present she is certainly not volume depleted and became short of breath when IV fluid was given. I hope that her kidney function will start improving over next 48-72 hours. At present there is no emergent indication for dialysis. 2. Hyperkalemia. She has mild hyperkalemia related to acute kidney injury and has already received a dose of Veltassa. I am going to give her one dose of Lasix 40 mg, which will also help to improve her hyperkalemia. 3. Shortness of breath. This is related to large lung mass. Her pleural effusion has been drained. She is also now in congestive heart failure, and Lasix 40 mg one dose is being ordered. We will monitor her urine output for the next 6-8 hours. 4. Hypotension. Blood pressure is somewhat low. Her chronic antihypertensive medications, including enalapril, hydrochlorothiazide, and metoprolol have been stopped. She probably already received a dose of metoprolol today. Thank you for involving me in the care of Ms. Morejon. I will follow her along with you. AYESHA
--- NOTE | 2020-05-15 07:07 | IPN ---
DATE: 05/14/2020 This is postoperative day #1 for Mrs. Morejon. I was called last night with a high heart rate with the observation that her preoperative medications, metoprolol, had not been ordered. I instructed the nursing staff to contact the hospitalist. I was not told that she was hypotensive. The hospitalist did respond and did give her a 500 bolus of normal saline. Today I walk in, and she is somnolent and confused and slurring her words and can hardly count to 10. She is on a patient-controlled analgesia (YOKER MACHINE OPERATOR) morphine pump. She also has nausea. I therefore discontinued the YOKER MACHINE OPERATOR pump and gave her 0.4 of Narcan, and she immediately awoke. I am therefore going to discontinue the YOKER MACHINE OPERATOR pump. She is not complaining of any incisional pain. Her vital signs show a maximum temperature of 99.1 with a heart rate that ranges between 134 and 98 in a sinus rhythm. Her respiratory rate is 16-20 without the use of accessory muscles, and she is 86% saturated on room air, back to 94-96 on 1 liter nasal cannula. Her blood pressure is now ranging between 103/62 to 93/60 with a remy of 89/50 last night. Her intake and output over the past 24 hours has been recorded as 2020 and 1573 out, for a positivity of 447 mL. She has put out 197 mL from her pericardial tube and 251 mL from the pleural tube. Her weight today is 86.4 kg compared to 82 kg yesterday. PHYSICAL EXAMINATION: She has bronchophony on the right side. I hear some rales and rhonchi scattered throughout on both inspiration and expiration. Percussion note is full to the diaphragm as far as I can tell through her obesity. Cardiac sounds are still distant. I do hear what I think is a pericardial friction rub, but because of her distant heart sound and her obesity, it is difficult to really ascertain if that is a rub. It would be secondary to chest tube placement or pericardial tube placement. I cannot feel her point of maximal impulse (PMI). Abdomen is soft, nontender. Bowel sounds are quite active. There is no hepatomegaly that I can appreciate. Extremities show no pretibial edema, no calf tenderness, no differential swelling of the upper extremities. Skin is warm, dry, and perfused without cyanosis or mottling, including that of the nailbeds and knees. Neck is supple. There is no jugular venous distention (JVD). No subcutaneous emphysema. Trachea is midline. Mouth shows her mucous membranes to be pink and moist. Lips and commissures without lesions. No thrush. Eyes show her pupils to be pinpoint. Sclerae are anicteric. Extraocular motions are intact. Neurologic shows II-XII intact. Normal motor, gross sensation intact with somnolence and a decreased level of consciousness. Psychiatric shows the same. Her white count today is 13.4 with a hemoglobin and hematocrit of 12.3 and 42.3, respectively, with a platelet count of 143. Differential shows 80% neutrophils, 6% lymphocytes, 11% monocytes. There are no immature forms or toxic granulations. Her chemistries today show a sodium 138 with a potassium 5.5, a total CO2 of 26 but with a BUN and creatinine now of 23 and 2.16. Glucose is 167 with a calcium of 8.3. Her pericardial fluid from yesterday shows a pH of 7.55 with a glucose of 114 and an LDH of 577 with a corresponding serum LDH of 195. White count is 264, 84% of which are monocytes and lymphocytes, and 15% are neutrophils. This therefore looks like normoglycemic but exudative pericardial effusion and lymphocytic. I have gone over the cytology slides with Dr. Cerda of pathology, and, indeed, there are numerous malignant cells and clumps. This therefore looks to be a malignant pericardial effusion. She is already known to have extensive adenocarcinoma of the right middle and upper lobes. Her chest x-ray today shows her lungs fully expanded to the chest wall. There is a diffuse haze on the right side. The film was done portably. Chest tubes are in good place. The diffuse haze overlies a large right-sided central mass. Cardiac silhouette does not show a globular configuration. IMPRESSION: 1. Adenocarcinoma, right upper and middle lobes, and left hilar node. 2. Malignant pericardial effusion. 3. Diabetes. 4. Hypertension. 5. Postoperative renal failure. 6. Somnolence and narcotic narcosis. 7. Pericardial effusion, status post pericardial window postoperative day #1. PLAN AND DISCUSSION: Dr. Rodriguez of nephrology has already been consulted by the hospitalist. He has given her some Lasix, and she is starting to make urine. Her creatinine, however, is going up from this morning, which was 1.98, now 2.16. She is becoming mildly hyperkalemic. As noted above, I have treated her with Narcan, and she has now awoken. The morphine pump will be discontinued, and hopefully that will address her nausea. As nephrology now involved, I will defer to their judgment in regard to fluid, although is my prejudice that she needs another bolus. Her brain natriuretic peptide is elevated at 2259, but I do not think that is secondary to heart failure, as her echocardiogram showed good systolic function yesterday. There was no valvular disease. I suspect the BNP is secondary to my manipulations of the heart yesterday. MTDD
[2020-05-15] MEDS: ACETAMINOPHEN TAB 650MG DOSE (2X325MG) PO PRN (07:33)
--- NOTE | 2020-05-15 08:53 | MEDONCPDOC ---
Med Onc Office Note.txt Date of Visit May 15, 2020 Office Note Brief Radiation Oncology Note Visited with patient at bedside this AM. She is doing much better today. SOB improved, no nausea. Much more able to participate in conversation. Note pleural and pericardial drains with bloody fluid. We reviewed her chest imaging at bedside showing the large right lung primary mass, satellite nodules and contralateral hilar disease. I also disclosed that t he pericardial and pleural effusions are in my mind malignant. All told this means she has stage IV disease. We discussed that her cancer, although incurable, is treatable. She has seen Dr. Regalado who intends to start immunotherapy, which given her condition at present seems a good choice to me. I would not hesitate to give RT concurrent with immunotherapy as this combination is known to be safe. I discussed that I do recommend we proceed with chest RT, in effort to alleviate her current SOB and prevent collapse of the right lung which is impending due to compression of the right RUL and RML primary bronchi. I explained the logistics of receiving radiation including the need for a planning session, if not today then Monday ideally. I recommend we proceed with an aggressive palliative RT schedule--a split course of 25 Gy in 10 fractions, followed by a 2 week break, then an additional 25 Gy in 10 fractions, if she tolerates the first phase of treatment. This regimen is quite effective (Fely et al JTO 2010). We reviewed the side effects of treatment fatigue, esophagitis, and pneumonitis. She would like to discuss with her family prior to deciding. I will tentatively schedule her for planning on Monday05/18/20. This can be cancelled if she decides not to proceed. I would also appreciate if she could have a CT abdomen and pelvis with contrast done to complete her staging while inpatient. The presence of widespread infra- diagphragmatic disease would prompt me to offer less aggressive palliative RT to the chest as a lasting benefit from RT would be less likely if she has widespread metastatic disease rather than only regional metastasis in the pleura and pericardium. CC TO: Primary Care Provider: Matt Huynh Referring Provider: PATEL RUSSO MD May 15, 2020 08:53
[2020-05-15] MEDS: MOM 30ML SUSPENSION UDC PO SCH ×2 (09:00→09:24)
[2020-05-15] MEDS: DOCUSATE SODIUM 100 MG CAP PO SCH ×2 (09:24→20:10)
[2020-05-15] MEDS: HEPARIN SOD (PORCINE) 5000UNITS/ML 1ML VIAL/SYRINGE SC SCH ×2 (09:24→20:11)
[2020-05-15] MEDS: PANTOPRAZOLE 40MG TAB (PROTONIX) PO SCH (09:24)
[2020-05-15] MEDS: HumaLOG INSULIN (NovoLOG) PER UNIT SC SCH ×4 (09:41→20:11)
--- NOTE | 2020-05-15 09:57 | REP ---
INDICATION: pericardial effusion, lung cancer. COMPARISON: Comparison is made with May 14, 2020 portable chest x-ray. TECHNIQUE: Two views.. FINDINGS: Two pericardial drains remain in place overlying the heart. There is some intrapericardial air visible today along the left heart border. There is blunting of the right lateral pleural angle which is somewhat increased. A large right perihilar masslike opacity is again seen unchanged. There is platelike atelectasis in the left base laterally. No pneumothorax seen. IMPRESSION: Two anteriorly placed pericardial drains with some intrapericardial air visible today. Small right pleural effusion. Otherwise unchanged.. <Electronically signed by Shorty Okeefe > 05/15/20 0919
[2020-05-15] MEDS ORDERED: FUROSEMIDE 40MG/4ML VIAL (J1940) IV ONE (10:45)
--- NOTE | 2020-05-15 12:46 | IPNPDOC ---
Subjective Date Seen The patient was seen on 05/15/20. Subjective Chief Complaint/HPI Mrs. Morejon is a 64 year old female with sarcoidosis and stage 3/4 lung cancer here with progressively worsening dyspnea secondary to pericardial effusion and pleural effusion found to have metastatic adenocarcinoma. This morning, she still has dyspnea, but feels that it is slightly better. Renal function has been improving. Denies fever, abdominal pain, or dysuria. Today, Dr. Tran reached out to me about the results from pathology. I c ontacted Dr. Regalado. Dr. Regalado is planning for treatment outpatient when she is more stable. Radiation oncology requested CT abd/pelvis with contrast. Unfortunately, renal function still has not returned to baseline. When renal function improves closer to baseline, will try to obtain CT abd/pelvis with contrast. Objective Physical Examination General Exam: Positive: Alert, Cooperative, Mild Distress Eye Exam: Positive: EOMI; Negative: Sclera icteric ENT Exam: Positive: Atraumatic Neck Exam: Positive: Supple Chest Exam: Positive: Other (Coarse breath sound) Heart Exam: Positive: Rate Normal, Regular Rhythm Abdomen Exam: Positive: Normal bowel sounds, Soft; Negative: Tenderness Extremity Exam: Negative: Cyanosis Neuro Exam: Positive: Cranial Nerves 3-12 NL Psych Exam: Positive: Mental status NL, Anxiety Assessment /Plan Assessment Mrs. Morejon is a 64 year old female with sarcoidosis and stage 3/4 lung cancer h ere with progressively worsening dyspnea secondary to pericardial effusion and pleural effusion. On 05/13/2020, Dr. Tran placed a pericardial window and chest tubes. Later that night, patient started to have anuria. They gave a total of 1 L NS and started fluids running at 150mL/hr of NS. BNP increased from 118 to 2259 and creatinine increased from 1.16 to 1.98. Stopped IV fluids. Consulted nephrology for JOEL. Recommendations appreciated. Creatinine peaked at 2.16, but now has down trended to 1.68. Otherwise, Oncology and Radiation Oncology have both been consulted. Recommendations appreciated. Unable to obtain CT abd/pelvis with contrast at this time due to JOEL, but will try when urine output improves. Oncology plans for treatment with Pembrolizumab outpatient when she is more stable and the tubes have been removed. Plan/VTE VTE Prophylaxis Ordered?: Yes Plan 1. Pericardial effusion -Demonstrated on CTA that is up to 2.4cm thick -CT surgery, Dr. Tran, consulted. Recommendations appreciated. OR on 05/13/2020 for pericardial window -Secondary to malignancy. Metastatic adenocarcinoma 2. Pleural effusion -Bilateral pleural effusion -Echocardiogram demonstrates EF of 60% -Secondary to malignancy. Metastatic adenocarcinoma 3. Metastatic adenocarcinoma -CTA demonstrates large right hilar perihilar mass -Oncology and Radiation oncology consulted. Recommendations appreciated -Spoke with oncology. 25% was PDL-1 positive. Plan for treatment when patient is more stable and without tubes. -Unable to perform CT abd/pelvis with contrast due to JOEL, may try when renal function improves 4. JOEL -Patient anuric evening of 05/13/2020 -Creatinine increased from 1.16 to a peak of 2.16 -Nephrology consulted, recommendations appreciated 5. Hypertension -Blood pressure well controlled -Will hold enalapril, HCTZ, and Toprol XL as patient is hypotensive 6. IDDM -Holding empagliflozin, ozempic, and vilazodone -Carb consistent diet, ISS, and Levemir 7. GERD -Pantoprazole 8. DVT ppx -Heparin Dispo: Once renal function improves, will obtain CT abd/pelvis with contrast VS, I&O, 24H, Fishbone Vital Signs/I&O Vital Signs Date Time Temp Pulse Resp B/P (MAP) Pulse Ox O2 Delivery O2 Flow Rate FiO2 05/15/20 10:00 103 20 103/61 (75) 95 Room Air 05/15/20 08:00 98.3 1.0 I&O- Last 24 Hours up to 6 AM 05/15/20 06:00 Intake Total 2055 ml Output Total 2658 ml Balance -603 ml Laboratory Data 24H LABS Laboratory Tests 2 05/14/20 12:47: Anion Gap 4L, Glomerular Filtration Rate 24.3L, Calcium Level 8.3L 05/14/20 14:06: Blood Gas Bicarbonate Standard 21.1L, Arterial Blood pH 7.285L, Arterial Blood Partial Pressure CO2 49.1H, Arterial Blood Partial Pressure O2 106.4H, Arterial Blood Total CO2 24.3, Arterial Blood HCO3 22.8, Arterial Blood Base Excess - 4.2L, Arterial Blood Oxygen Saturation 98.4 05/14/20 16:02: Anion Gap 4L, Glomerular Filtration Rate 25.1L, Calcium Level 8.3L, Phosphorus Level 3.5, Albumin 2.7#L 05/14/20 18:07: Bedside Glucose (Misc Panel) 107 05/14/20 20:15: Bedside Glucose (Misc Panel) 144H 05/15/20 04:34: Immature Granulocyte % (Auto) 0.5, Neutrophils (%) (Auto) 77.7H, Lymphocytes (%) (Auto) 10.7L, Monocytes (%) (Auto) 9.5H, Eosinophils (%) (Auto) 0.9, Basophils (%) (Auto) 0.7, Neutrophils # (Auto) 6.6, Lymphocytes # (Auto) 0.9L, Monocytes # (Auto) 0.8, Eosinophils # (Auto) 0.1, Basophils # (Auto) 0.1, Nucleated Red Blood Cells % (auto) 0.0, Immature Platelet Fraction 2.6, Anion Gap 6L, Glomerular Filtration Rate 32.5L, Calcium Level 8.2L 05/15/20 09:28: Bedside Glucose (Misc Panel) 172H 05/15/20 11:32: Bedside Glucose (Misc Panel) 175H CBC/BMP Laboratory Tests 05/14/20 12:47 05/14/20 16:02 05/15/20 04:34 Microbiology Microbiology 05/13/20 Acid Fast Stain, Received Pending 05/13/20 Mycobacterial Culture, Received Pending 05/13/20 Fungal Smear, Received Pending 05/13/20 Fungal Culture, Received Pending 05/13/20 Gram Stain - Final, Complete 05/13/20 Body Fluid Culture - Final, Complete 05/13/20 Anaerobic Culture - Final, Complete 05/12/20 Blood Culture - Preliminary, Resulted No Growth after 48 hours. All Specime... 05/12/20 Blood Culture - Preliminary, Resulted No Growth after 48 hours. All Specime... ASHER ROGERS DO May 15, 2020 12:46
[2020-05-15] MEDS: LEVEMIR (INSULIN DETEMIR) 1 UNITS/0.01ML SC SCH (20:11)
[2020-05-16] VITALS (15 sets, daily range): BP systolic 95–142; BP diastolic 56–73
[2020-05-16] MEDS: LEVALBUTEROL 1.25 MG/0.5 ML CONCENTRATE NEB NEB SCH ×4 (02:30→19:50)
[2020-05-16 05:35] LABS: BASO % 0.6 % (0.0-1.0); EOS # 0.1 10^3/uL (0.0-0.5); EOS % 1.1 % (0.0-3.0); HEMATOCRIT 36.6 % (36.0-47.0); HEMOGLOBIN 11.2 g/dl (12.0-15.5); LYMPH # 0.7 10^3/uL (1.5-5.0); LYMPH % 12.2 % (24.0-44.0); MEAN CORPUSCULAR HEMOGLOBIN 25.6 pg (27.0-33.0); MEAN CORPUSCULAR HGB CONC 30.6 g/dl (32.0-36.5); MEAN CORPUSCULAR VOLUME 83.6 fl (80.0-96.0); MONO # 0.5 10^3/uL (0.0-0.8); NEUTROPHILS % 75.7 % (36.0-66.0); PLATELET COUNT, AUTOMATED 103 10^3/uL (150-450); RED BLOOD COUNT 4.38 10^6/uL (4.00-5.40); WHITE BLOOD COUNT 5.3 10^3/uL (4.0-10.0)
[2020-05-16 05:55] LABS: CALCIUM LEVEL 9.1 MG/DL (8.8-10.2); CREATININE FOR GFR 1.24 MG/DL (0.55-1.30); GLOMERULAR FILTRATION RATE 46.1 (>45); POTASSIUM SERUM 4.5 MEQ/L (3.5-5.1)
[2020-05-16] MEDS: HumaLOG INSULIN (NovoLOG) PER UNIT SC SCH ×4 (07:35→20:01)
--- NOTE | 2020-05-16 08:14 | REP ---
INDICATION: pericardial effusion, lung cancer. COMPARISON: 05/15/2020, 05/14/2020, 05/13/2020 TECHNIQUE: Two views FINDINGS: Study again shows 2 anterior pericardial drains, 1 in the midline 1 towards the right, positions unchanged. Some intrapericardial air is again seen. Blunting of the right CP angle suggesting effusion is again seen. Hilar/perihilar opacity on the right is again seen suggesting large mass. Some patchy atelectasis or opacity in the left CP angle is noted and unchanged. Cardiac silhouette is unchanged. The aorta is tortuous. Airway intact some venous hypertension suggested without michael edema IMPRESSION: 1. Two pericardial drains again seen, unchanged. Small amount of intrapericardial air noted. 2. Large masslike opacity right hilar perihilar region unchanged. 3. Pulmonary venous hypertension without michael edema. There is stable appearance to a right effusion and some subsegmental atelectasis or patchy density suggested in the left CP angle. No significant interval change. <Electronically signed by Jonathon Tellez > 05/16/20 [id number]
[2020-05-16] MEDS: DOCUSATE SODIUM 100 MG CAP PO SCH ×2 (08:51→20:01)
[2020-05-16] MEDS: MOM 30ML SUSPENSION UDC PO SCH (08:51)
[2020-05-16] MEDS: HEPARIN SOD (PORCINE) 5000UNITS/ML 1ML VIAL/SYRINGE SC SCH ×2 (08:52→20:01)
[2020-05-16] MEDS: PANTOPRAZOLE 40MG TAB (PROTONIX) PO SCH (08:52)
[2020-05-16] MEDS: ACETAMINOPHEN TAB 650MG DOSE (2X325MG) PO PRN (10:59)
--- NOTE | 2020-05-16 11:56 | IPNPDOC ---
Subjective Date Seen The patient was seen on 05/16/20. Subjective Chief Complaint/HPI Mrs. Morejon is a 64 year old female with sarcoidosis and stage 3/4 lung cancer here with progressively worsening dyspnea secondary to pericardial effusion and pleural effusion found to have metastatic adenocarcinoma. Overnight, her urine output decreased, but she did not have much oral intake. This morning, encourage more fluid intake. Otherwise, denies fever/chills, chest pain, abdominal pain, or dysuria. Dyspnea is better. Spoke with nephrology about EDSON prophylaxis, but since her kidneys are just recovering from previous insult, recommended waiting until she is more stable. Objective Physical Examination General Exam: Positive: Alert, Cooperative Eye Exam: Positive: EOMI; Negative: Sclera icteric ENT Exam: Positive: Atraumatic Neck Exam: Positive: Supple Chest Exam: Positive: Other (Coarse breath sound) Heart Exam: Positive: Rate Normal, Regular Rhythm Abdomen Exam: Positive: Normal bowel sounds, Soft; Negative: Tenderness Extremity Exam: Negative: Cyanosis Neuro Exam: Positive: Cranial Nerves 3-12 NL Psych Exam: Positive: Mental status NL, Anxiety Assessment /Plan Assessment Mrs. Morejon is a 64 year old female with sarcoidosis and stage 3/4 lung cancer here with progressively worsening dyspnea secondary to pericardial effusion and pleural effusion. On 05/13/2020, Dr. Tran placed a pericardial window and chest tubes. Later that night, patient started to have anuria. They gave a total of 1 L NS and started fluids running at 150mL/hr of NS. BNP increased from 118 to 2259 and creatinine increased from 1.16 to 1.98. Stopped IV fluids. Consulted nephrology for JOEL. Recommendations appreciated. Creatinine peaked at 2.16, but now has down trended to 1.24. Approach nephrology about EDSON prophylaxis for CT abd/pelvis with contrast, but due to her recent injury recommended waiting until renal function is more stable. Otherwise, Oncology and Radiation Oncology have both been consulted. Recommendations appreciated. Recommended CT abd/pelvis with contrast to determine amount of radiation needed. Unable to obtain CT abd/pelvis with c ontrast at this time due to JOEL, but will reproach this at another time. Oncology plans for treatment with Pembrolizumab outpatient when she is more stable and the tubes have been removed. Today, 05/16/2020, tubes has been clamped. Plan/VTE VTE Prophylaxis Ordered?: Yes Plan 1. Pericardial effusion -Demonstrated on CTA that is up to 2.4cm thick -CT surgery, Dr. Tran, consulted. Recommendations appreciated. OR on 05/13/2020 for pericardial window -Secondary to malignancy. Metastatic adenocarcinoma 2. Pleural effusion -Bilateral pleural effusion -Echocardiogram demonstrates EF of 60% -Secondary to malignancy. Metastatic adenocarcinoma -Chest tubes placed on 05/13/2020, Clamping trial 05/16/2020 3. Metastatic adenocarcinoma -CTA demonstrates large right hilar perihilar mass -Oncology and Radiation oncology consulted. Recommendations appreciated -Spoke with oncology. 25% was PDL-1 positive. Plan for treatment when patient is more stable and without tubes. -Unable to perform CT abd/pelvis with contrast due to JOEL, may try when renal function improves 4. JOEL -Patient anuric evening of 05/13/2020 -Creatinine increased from 1.16 to a peak of 2.16 -Nephrology consulted, recommendations appreciated 5. Hypertension -Blood pressure well controlled -Will hold enalapril, HCTZ, and Toprol XL as patient is hypotensive 6. IDDM -Holding empagliflozin, ozempic, and vilazodone -Carb consistent diet, ISS, and Levemir 7. GERD -Pantoprazole 8. DVT ppx -Heparin Dispo: Pending clamping trials and renal status VS, I&O, 24H, Fishbone Vital Signs/I&O Vital Signs Date Time Temp Pulse Resp B/P (MAP) Pulse Ox O2 Delivery O2 Flow Rate FiO2 05/16/20 08:05 97.4 117 18 100/69 (79) 94 Room Air 05/16/20 06:00 1.0 I&O- Last 24 Hours up to 6 AM 05/16/20 06:00 Intake Total 1015 ml Output Total 2043 ml Balance -1028 ml Laboratory Data 24H LABS Laboratory Tests 2 05/15/20 17:17: Bedside Glucose (Misc Panel) 156H 05/15/20 20:10: Bedside Glucose (Misc Panel) 175H 05/16/20 05:04: Immature Granulocyte % (Auto) 0.4, Neutrophils (%) (Auto) 75.7H, Lymphocytes (%) (Auto) 12.2L, Monocytes (%) (Auto) 10.0H, Eosinophils (%) (Auto) 1.1, Basophils (%) (Auto) 0.6, Neutrophils # (Auto) 4.0, Lymphocytes # (Auto) 0.7L, Monocytes # (Auto) 0.5, Eosinophils # (Auto) 0.1, Basophils # (Auto) 0.0, Nucleated Red Blood Cells % (auto) 0.0, Anion Gap 5L, Glomerular Filtration Rate 46.1, Calcium Level 9.1 05/16/20 07:20: Bedside Glucose (Misc Panel) 144H CBC/BMP Laboratory Tests 05/16/20 05:04 Microbiology Microbiology 05/13/20 Acid Fast Stain, Received Pending 05/13/20 Mycobacterial Culture, Received Pending 05/13/20 Fungal Smear, Received Pending 05/13/20 Fungal Culture, Received Pending 05/13/20 Gram Stain - Final, Complete 05/13/20 Body Fluid Culture - Final, Complete 05/13/20 Anaerobic Culture - Final, Complete 05/12/20 Blood Culture - Preliminary, Resulted No Growth after 72 hours. All specime... 05/12/20 Blood Culture - Preliminary, Resulted No Growth after 72 hours. All specime... ASHER ROGERS DO May 16, 2020 11:56
[2020-05-16] MEDS ORDERED: FUROSEMIDE 40MG/4ML VIAL (J1940) IV ONE (12:15)
[2020-05-16] MEDS: ONDANSETRON 4MG/2ML VIAL IV PRN (18:57)
[2020-05-16] MEDS: LEVEMIR (INSULIN DETEMIR) 1 UNITS/0.01ML SC SCH (20:02)
[2020-05-16] MEDS ORDERED: NITROGLYCERIN 2% OINT 1 GM *U/D* PKT TOP ONE (21:30)
[2020-05-16] MEDS ORDERED: ASPIRIN 81 MG CHEW TABLET PO ONE (21:30)
[2020-05-16 21:56] LABS: CK-MB VALUE MASS < 1.0 NG/ML (<3.6); CPK CREATINE PHOSPHOKINASE 53 U/L (26-192); MB/CK RELATIVE INDEX 1.89 (< OR =4); TROPONIN I < 0.02 NG/ML (< 0.10)
--- NOTE | 2020-05-16 22:12 | REPVR ---
PROCEDURE INFORMATION: Exam: XR Chest, 1 View Exam date and time: 05/16/2020 9:20 PM Age: 64 years old Clinical indication: Other: Tightness; Additional info: Chest heaviness TECHNIQUE: Imaging protocol: XR of the chest Views: 1 view. COMPARISON: LA Chest, 1 view 05/14/2020 8:37 AM FINDINGS: Tubes, catheters and devices: Two right-sided drainage tubes. External monitoring devices present. Lungs: Volume loss in the right lower lobe. Patchy opacity left lung base laterally without change Pleural space: Blunting of the costophrenic angles bilaterally, right side greater than. Heart/Mediastinum: Unremarkable. No cardiomegaly. Bones/joints: Unremarkable. Other findings: Patient is rotated to the right. Hazy density over the right hemithorax. IMPRESSION: 1. Persistent small bilateral pleural effusion/with volume loss in the right lower lobe. 2. Hazy density in the right hemithorax may be related to loculated fluid.. No significant change. Electronically signed by: Keri Ulloa On 05/16/2020 22:11:41 PM
[2020-05-17] VITALS (11 sets, daily range): BP systolic 93–122; BP diastolic 50–91
[2020-05-17 00:34] LABS: CK-MB VALUE MASS < 1.0 NG/ML (<3.6); CPK CREATINE PHOSPHOKINASE 47 U/L (26-192); MB/CK RELATIVE INDEX 2.13 (< OR =4); TROPONIN I < 0.02 NG/ML (< 0.10)
--- NOTE | 2020-05-17 01:02 | IPNPDOC ---
Text Note Date of Service The patient was seen on 05/17/20. NOTE I was called by nursing at 2103 on 05/16/2020 as the patient called into the room saying that she had right-sided and sub-sternal chest pressure. An ECG, cardiac markers, and chest x-ray was ordered. Vital signs were stable at the time. Initial ECG showed new onset ST depressions in leads V2V4. Because of this, along with the patient's chest pain, aspirin 325 was given to the patient and the patient was given an order for nitroglycerin. By the time the nitroglycerin was about to be given, the patient's chest pressure had resolved. Initial cardiac markers were negative. Repeat ECG and cardiac markers were ordered for midnight. The ECG at that time was unchanged and troponins were again negative. Chest x-ray did not show any acute changes from prior chest x- rays. Patient is a pericardial tube in place. On exam, patient has a regular rate and rhythm with no murmurs auscultated. Patient does have end expiratory wheezes in her lungs. A third repeat ECG and troponin will be performed at 6 AM unless the patient begins to experience further chest pressure. VS,Fishbone, I+O VS, Fishbone, I+O Laboratory Tests 05/16/20 05:04 Vital Signs Date Time Temp Pulse Resp B/P (MAP) Pulse Ox O2 Delivery O2 Flow Rate FiO2 05/17/20 00:00 97.1 112 18 99/62 (74) 93 Room Air 05/16/20 06:00 1.0 I&O- Last 24 Hours up to 6 AM 05/17/20 06:00 Intake Total 925 ml Output Total 1079 ml Balance -154 ml GME ATTESTATION GME ATTESTATION My faculty preceptor for this patient encounter was physically present during the encounter and was fully available. All aspects of the patient interview, examination, medical decision making process, and medical care plan development were reviewed and approved by the faculty preceptor. The faculty preceptor is aware and concurs with the plan as stated in the body of this note and will attest to such by his/her cosignature. ANIL ZULUAGA DO May 17, 2020 01:02
[2020-05-17] MEDS: LEVALBUTEROL 1.25 MG/0.5 ML CONCENTRATE NEB NEB SCH ×4 (02:04→19:30)
[2020-05-17 06:07] LABS: BASO % 0.7 % (0.0-1.0); EOS # 0.1 10^3/uL (0.0-0.5); EOS % 2.7 % (0.0-3.0); HEMATOCRIT 38.2 % (36.0-47.0); HEMOGLOBIN 11.5 g/dl (12.0-15.5); LYMPH # 0.6 10^3/uL (1.5-5.0); LYMPH % 15.3 % (24.0-44.0); MEAN CORPUSCULAR HEMOGLOBIN 25.1 pg (27.0-33.0); MEAN CORPUSCULAR HGB CONC 30.1 g/dl (32.0-36.5); MEAN CORPUSCULAR VOLUME 83.4 fl (80.0-96.0); MONO # 0.5 10^3/uL (0.0-0.8); MONO % 13.3 % (0.0-5.0); NEUTROPHILS # 2.8 10^3/uL (1.5-8.5); NEUTROPHILS % 67.8 % (36.0-66.0); PLATELET COUNT, AUTOMATED 121 10^3/uL (150-450); RED BLOOD COUNT 4.58 10^6/uL (4.00-5.40); WHITE BLOOD COUNT 4.1 10^3/uL (4.0-10.0)
[2020-05-17 06:35] LABS: BLOOD UREA NITROGEN 25 MG/DL (7-18); CALCIUM LEVEL 8.7 MG/DL (8.8-10.2); CARBON DIOXIDE LEVEL 30 MEQ/L (21-32); CHLORIDE LEVEL 101 MEQ/L (98-107); CK-MB VALUE MASS < 1.0 NG/ML (<3.6); CPK CREATINE PHOSPHOKINASE 44 U/L (26-192); GLOMERULAR FILTRATION RATE 47.8 (>45); GLUCOSE, FASTING 153 MG/DL (70-100); MB/CK RELATIVE INDEX 2.27 (< OR =4); POTASSIUM SERUM 3.4 MEQ/L (3.5-5.1); SODIUM LEVEL 137 MEQ/L (136-145); TROPONIN I < 0.02 NG/ML (< 0.10)
[2020-05-17] MEDS: HumaLOG INSULIN (NovoLOG) PER UNIT SC SCH ×4 (07:41→21:00)
[2020-05-17] MEDS: HEPARIN SOD (PORCINE) 5000UNITS/ML 1ML VIAL/SYRINGE SC SCH ×2 (08:25→20:51)
[2020-05-17] MEDS: DOCUSATE SODIUM 100 MG CAP PO SCH ×2 (08:26→20:50)
[2020-05-17] MEDS: PANTOPRAZOLE 40MG TAB (PROTONIX) PO SCH (08:26)
[2020-05-17] MEDS: MOM 30ML SUSPENSION UDC PO SCH (08:26)
--- NOTE | 2020-05-17 08:46 | REP ---
INDICATION: pericardial effusion, lung cancer. COMPARISON: 05/16/2020, 05/15/2020, CT 05/12/2020 TECHNIQUE: PA lateral FINDINGS: Two anterior pericardial drains are seen and unchanged. Some pericardial air is again seen. Masslike opacity right perihilar and lower lung zone noted with increasing right effusion and patchy basilar atelectasis or infiltrate. Left lung shows some blunting of the CP angle also suggesting small effusion and basilar atelectatic change at the CP angle. The cardiac and mediastinal silhouettes were not changed. The aorta is calcified at the arch mildly tortuous but stable bones show no acute compression deformity IMPRESSION: 1. Two pericardial drains with small amount pericardial air again seen and unchanged. 2. Increasing right pleural effusion the hazy density perihilar and right lower lung zone again seen representing known mass in this region. Superimposed patchy atelectasis or infiltrate suspected with the effusion and mass present in the right base. 3. Some minor blunting of left CP angle may suggest small effusion with some subsegmental atelectasis adjacent. <Electronically signed by Jonathon Tellez > 05/17/20 [id number]
[2020-05-17] MEDS ORDERED: POTASSIUM CHLORIDE 10 MEQ SR TABLET PO ONE (09:00)
--- NOTE | 2020-05-17 18:08 | ECGEPIP ---
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
--- NOTE | 2020-05-17 18:09 | ECGEPIP ---
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
--- NOTE | 2020-05-17 18:11 | ECGEPIP ---
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
--- NOTE | 2020-05-17 18:54 | IPNPDOC ---
Subjective Date Seen The patient was seen on 05/17/20. Subjective Chief Complaint/HPI Mrs. Morejon is a 64 year old female with sarcoidosis and stage 3/4 lung cancer here with progressively worsening dyspnea secondary to pericardial effusion and pleural effusion found to have metastatic adenocarcinoma. Overnight, she had chest pressure. EKG did not show change and troponin x3 were negative. No change on CXR. This morning she was feeling better and breathing better. Dr. Tran removed the tubes. She was excited about the prospect of going home. The next step was to obtain CT abd/pelvis with contrast. She was afraid that if she has the contrast study and her kidney does not do well, she would be stuck in the hospital for the next few days. She wants to go home and see her nephew. I explained that if she goes home, she may not be able to obtain the contrast study in a timely matter which may delay cancer treatment. She is aware that it may delay her cancer treatment and may allow the cancer to progress. She misses her family and is very emotionally unstable without them. She is overwhelmed with her diagnosis with cancer. We discussed discharge planning. If she is okay tomorrow morning, she will go home tomorrow and her PCP will need to order the CT abd/pelvis with contrast. Objective Physical Examination General Exam: Positive: Alert, Cooperative Eye Exam: Positive: EOMI; Negative: Sclera icteric ENT Exam: Positive: Atraumatic Neck Exam: Positive: Supple Chest Exam: Positive: Other (Coarse breath sound) Heart Exam: Positive: Rate Normal, Regular Rhythm Abdomen Exam: Positive: Normal bowel sounds, Soft; Negative: Tenderness Extremity Exam: Negative: Cyanosis Neuro Exam: Positive: Cranial Nerves 3-12 NL Psych Exam: Positive: Mental status NL, Anxiety Assessment /Plan Assessment Mrs. Morejon is a 64 year old female with sarcoidosis and stage 3/4 lung cancer here with progressively worsening dyspnea secondary to pericardial effusion and pleural effusion. On 05/13/2020, Dr. Tran placed a pericardial window and chest tubes. Later that night, patient started to have anuria. They gave a total of 1 L NS and started fluids running at 150mL/hr of NS. BNP increased from 118 to 2259 and creatinine increased from 1.16 to 1.98. Stopped IV fluids. Consulted nephrology for JOEL. Recommendations appreciated. Creatinine peaked at 2.16, but now has down trended to 1.2. Approached patient today about CT abd/pelvis with contrast, but she does not want to do it now. She is emotionally unstable with the cancer diagnosis, and wants to go home to see family. She understands that this may delay treatment. Otherwise, Oncology and Radiation Oncology have both been consulted. Recommendations appreciated. Recommended CT abd/pelvis with contrast to determine amount of radiation needed. Unable to obtain CT abd/pelvis with contr ast at this time due to JOEL, but will reproach this at another time. Oncology plans for treatment with Pembrolizumab outpatient when she is more stable and the tubes have been removed. Today, 05/16/2020, tubes has been clamped. 05/17/2020, tubes have been removed. Plan/VTE VTE Prophylaxis Ordered?: Yes Plan 1. Pericardial effusion -Demonstrated on CTA that is up to 2.4cm thick -CT surgery, Dr. Tran, consulted. Recommendations appreciated. OR on 05/13/2020 for pericardial window -Secondary to malignancy. Metastatic adenocarcinoma 2. Pleural effusion -Bilateral pleural effusion -Echocardiogram demonstrates EF of 60% -Secondary to malignancy. Metastatic adenocarcinoma -Chest tubes placed on 05/13/2020, Clamping trial 05/16/2020 3. Metastatic adenocarcinoma -CTA demonstrates large right hilar perihilar mass -Oncology and Radiation oncology consulted. Recommendations appreciated -Spoke with oncology. 25% was PDL-1 positive. Plan for treatment when patient is more stable and without tubes. -Offered to perform CT abd/pelvis with contrast today, but patient declined 4. JOEL -Patient anuric evening of 05/13/2020 -Creatinine increased from 1.16 to a peak of 2.16 -Nephrology consulted, recommendations appreciated 5. Hypertension -Blood pressure well controlled -Will hold enalapril, HCTZ, and Toprol XL as patient is hypotensive 6. IDDM -Holding empagliflozin, ozempic, and vilazodone -Carb consistent diet, ISS, and Levemir 7. GERD -Pantoprazole 8. DVT ppx -Heparin Dispo: If she is okay tomorrow morning, she will be discharged home. Explained that going home tomorrow will delay treatment for the cancer. She is afraid the CT abd/pelvis contrast study would delay her discharge home and wants to do the study outpatient. She wants to see her family as she is overwhelmed with the cancer diagnosis. She understand that going home may delay obtaining the contrast study which may also delay her cancer treatment and allow for spread/worsening of symptoms. I relayed this information to her who is in agreement with her going home tomorrow. VS, I&O, 24H, Jimboe Vital Signs/I&O Vital Signs Date Time Temp Pulse Resp B/P (MAP) Pulse Ox O2 Delivery O2 Flow Rate FiO2 05/17/20 14:39 116 122/67 (85) 95 05/17/20 12:30 19 Room Air 05/17/20 08:00 97.3 05/16/20 06:00 1.0 I&O- Last 24 Hours up to 6 AM 05/17/20 06:00 Intake Total 1025 ml Output Total 1241 ml Balance -216 ml Laboratory Data 24H LABS Laboratory Tests 2 05/16/20 19:56: Bedside Glucose (Misc Panel) 178H 05/16/20 21:17: Total Creatine Kinase 53, Creatine Kinase MB < 1.0, Creatine Kinase MB Relative Index 1.89, Troponin I < 0.02 05/16/20 23:42: Total Creatine Kinase 47, Creatine Kinase MB < 1.0, Creatine Kinase MB Relative Index 2.13, Troponin I < 0.02 05/17/20 05:48: Total Creatine Kinase 44, Creatine Kinase MB < 1.0, Creatine Kinase MB Relative Index 2.27, Troponin I < 0.02, Immature Granulocyte % (Auto) 0.2, Neutrophils (%) (Auto) 67.8H, Lymphocytes (%) (Auto) 15.3L, Monocytes (%) (Auto) 13.3H, Eosi nophils (%) (Auto) 2.7, Basophils (%) (Auto) 0.7, Neutrophils # (Auto) 2.8, Lymphocytes # (Auto) 0.6L, Monocytes # (Auto) 0.5, Eosinophils # (Auto) 0.1, Basophils # (Auto) 0.0, Nucleated Red Blood Cells % (auto) 0.0, Anion Gap 6L, Glomerular Filtration Rate 47.8, Calcium Level 8.7L 05/17/20 07:31: Bedside Glucose (Misc Panel) 155H 05/17/20 11:24: Bedside Glucose (Misc Panel) 143H 05/17/20 17:12: Bedside Glucose (Misc Panel) 129H CBC/BMP Laboratory Tests 05/17/20 05:48 Microbiology Microbiology 05/13/20 Acid Fast Stain, Received Pending 05/13/20 Mycobacterial Culture, Received Pending 05/13/20 Fungal Smear, Received Pending 05/13/20 Fungal Culture, Received Pending 05/13/20 Gram Stain - Final, Complete 05/13/20 Body Fluid Culture - Final, Complete 05/13/20 Anaerobic Culture - Final, Complete 05/12/20 Blood Culture - Final, Complete NO GROWTH AFTER 5 DAYS 05/12/20 Blood Culture - Final, Complete NO GROWTH AFTER 5 DAYS ASHER ROGERS DO May 17, 2020 18:53
[2020-05-17] MEDS ORDERED: FUROSEMIDE 40MG/4ML VIAL (J1940) IV ONE (19:30)
[2020-05-17] MEDS: LEVEMIR (INSULIN DETEMIR) 1 UNITS/0.01ML SC SCH (20:51)
[2020-05-18 00:27] VITALS: BP 121/60
[2020-05-18] MEDS: LEVALBUTEROL 1.25 MG/0.5 ML CONCENTRATE NEB NEB SCH ×2 (02:31→07:56)
[2020-05-18 03:58] VITALS: BP 114/63
[2020-05-18] MEDS: ACETAMINOPHEN TAB 650MG DOSE (2X325MG) PO PRN (04:15)
[2020-05-18 05:08] LABS: EOS # 0.1 10^3/uL (0.0-0.5); HEMATOCRIT 37.5 % (36.0-47.0); HEMOGLOBIN 11.4 g/dl (12.0-15.5); LYMPH # 0.8 10^3/uL (1.5-5.0); LYMPH % 19.4 % (24.0-44.0); MEAN CORPUSCULAR HEMOGLOBIN 25.3 pg (27.0-33.0); MEAN CORPUSCULAR HGB CONC 30.4 g/dl (32.0-36.5); MEAN CORPUSCULAR VOLUME 83.1 fl (80.0-96.0); MONO # 0.6 10^3/uL (0.0-0.8); MONO % 15.4 % (0.0-5.0); NEUTROPHILS # 2.4 10^3/uL (1.5-8.5); NEUTROPHILS % 61.4 % (36.0-66.0); PLATELET COUNT, AUTOMATED 138 10^3/uL (150-450); RED BLOOD COUNT 4.51 10^6/uL (4.00-5.40)
[2020-05-18 05:29] LABS: CALCIUM LEVEL 8.3 MG/DL (8.8-10.2); CREATININE FOR GFR 1.25 MG/DL (0.55-1.30); GLOMERULAR FILTRATION RATE 45.6 (>45); POTASSIUM SERUM 3.5 MEQ/L (3.5-5.1)
[2020-05-18 08:00] VITALS: BP 108/66
--- NOTE | 2020-05-18 08:39 | MEDONCPDOC ---
Med Onc Office Note.txt Date of Visit May 18, 2020 Office Note Visited with Mrs. Morejon at bedside. She is feeling much better overall. Still not prepared to make treatment decisions today wants to talk to family in person. Believes she is going home today. This is fine, I have offered her a close follow up appointment with me, where we can complete her staging as an outpatient (given her tenuous renal function I will likely order a PET-CT when she sees me), and consider initiating radiation treatment. She was appreciative and is eager to go home. I will have my office call her in the next 1-2 days and schedule a follow up and tentative planning session same day to facilitate prompt treatment should elect to proceed. I would be happy to order the subsequent scans to complete her staging. CC TO: Primary Care Provider: Matt Huynh Referring Provider: PATEL RUSSO MD May 18, 2020 08:39
[2020-05-18] MEDS: HumaLOG INSULIN (NovoLOG) PER UNIT SC SCH (08:41)
[2020-05-18] MEDS: PANTOPRAZOLE 40MG TAB (PROTONIX) PO SCH (08:42)
[2020-05-18] MEDS: DOCUSATE SODIUM 100 MG CAP PO SCH (08:42)
[2020-05-18] MEDS: HEPARIN SOD (PORCINE) 5000UNITS/ML 1ML VIAL/SYRINGE SC SCH (08:43)
[2020-05-18] MEDS: MOM 30ML SUSPENSION UDC PO SCH (08:44)
--- NOTE | 2020-05-18 09:21 | REP ---
INDICATION: pericardial effusion, lung cancer. COMPARISON: Comparison chest x-ray May 17, 2020 and May 16, 2020. TECHNIQUE: Two views.. FINDINGS: In the interval since the prior studies, the 2 pericardial drains have been removed. Heart size is unchanged. There is some blunting of the right lateral pleural angle again noted and homogeneous masslike opacity is seen in the right infrahilar region. No new infiltrate is observed. There is extra thoracic soft tissue gas in the presternal soft tissues and there is some mediastinal gas and or pericardial gas persisting over the heart anteriorly. This is unchanged. IMPRESSION: Status post removal 2 pericardial drains. Some mediastinal/pericardial air persists. Small right pleural effusion. Right perihilar mass lesion.. <Electronically signed by Shorty Okeefe > 05/18/20 [id number]
--- NOTE | 2020-05-18 10:30 | IPN ---
DATE: 05/15/2020 Mrs. Morejon is seen this morning on her bedside. She is sitting in the chair at the time of my visit and reports feeling better compared to yesterday. Her dyspnea has improved. She has no fever or chills. She continues to drain from her chest tube and from her pericardial window tube. She denies any nausea or vomiting. PHYSICAL EXAMINATION: Temperature 98.3 degrees Fahrenheit, heart rate about 110 per minute, respiratory rate 20 per minute, blood pressure 103/61 mm of mercury, and oxygen saturation 95% on room air. Intake and output records from yesterday show total intake 3945 and output 2358. Her weight is down by 1 kg compared to yesterday. Her head is atraumatic. Neck supple and jugular venous distention (JVD) not visible sitting upright. Heart sounds are tachycardic and without a pericardial friction rub. Lungs still have bilateral rales at lower one-third. Abdomen is soft and nontender, and bowel sounds are normal. Extremities without any cyanosis or clubbing. Neurologically, she is awake, alert, and oriented times three. Today's labs show WBC count 8.5, hemoglobin 11.7, hematocrit 38.5. Sodium 135, potassium 5.1, CO2 of 25, BUN 24, and creatinine 1.68. Glucose 138 and calcium 8.2. PROBLEMS: 1. Acute kidney injury superimposed on chronic kidney disease. Some improvement in kidney function is noticed over last 24 hours. She has been somewhat hypotensive, however, has not received her angiotensin-converting enzyme (ROEL) inhibitor or beta magui. At present will anticipate further improvement in her kidney function over next 24-48 hours. 2. Congestive heart failure. Her volume status is still slightly decompensated. I am going to give her another dose of Lasix 40 mg today. Yesterday she was oliguric but did respond to Lasix. We will continue to use diuretic as needed in order to achieve a mild negative fluid balance in view of her borderline hypotension. 3. Hyperkalemia. Potassium level is corrected, and further diuretic is likely to help with further improvement. 4. Pericardial and pleural effusions. Patient already has chest tube and pericardial window done, and those are draining. [facility]
--- NOTE | 2020-05-18 10:33 | IPN ---
DATE: 05/16/2020 SUBJECTIVE: The patient was seen and examined at the bedside today morning. She is afebrile and hemodynamically stable. She still has a chest tube and a pericardial drain. She was given a dose of Lasix yesterday. She made more than 2 liters of urine. Renal function is actually improving. Creatinine has come down to 1.2. Clinically the patient is making progress from a renal standpoint. OBJECTIVE: VITAL SIGNS: Temperature is 97.6 degrees Fahrenheit, blood pressure 101/73, pulse is 124, respiratory rate of 16, saturating 94% on room air. Intake and output urine output recorded as 2,095 mL yesterday. When I saw her in the morning, her urine output was 227 mL. Weight on the bed scale is 84.3 kg. PHYSICAL EXAMINATION: GENERAL APPEARANCE: The patient is awake, alert, oriented x3, laying in bed in no apparent distress. HEAD AND NECK: Extraocular muscles intact. Pupils are equally round and reactive to light. Mucous membranes are moist. Neck is supple. She has mild elevation of jugular venous distention. CARDIOVASCULAR: S1, S2, tachycardia. EXTREMITIES: No edema of the bilateral lower extremities. RESPIRATORY: Mildly decreased breath sounds at the bases. CARDIOVASCULAR: She has tachycardia. The patient has a pericardial drain and a chest tube. Both are coming out in the epigastric region. ABDOMEN: Soft, positive bowel sounds, nontender, no organomegaly. GENITOURINARY: She has an indwelling Cosby catheter. MUSCULOSKELETAL: No clubbing, no cyanosis. Pulses are 2+. C&S: No focal deficits. Power is 5/5 in all extremities. LAB REVIEW: CBC showed a WBC of 5.3, hemoglobin is 11.2, platelets are 103. BMP showed sodium 137, potassium 4.5, chloride 103, bicarbonate 29, BUN 25, creatinine is 1.2. It was 1.6 yesterday. IMAGING: A chest x-ray was done today morning which showed two pericardial drains seen. A small amount of intrapericardial air is noted. Large mass-like opacity in the right hilar and perihilar region which is unchanged. Pulmonary venous hypertension without michael edema. Stable appearance of the right effusion. CURRENT INPATIENT MEDICATIONS: The patients medications were all reviewed by myself. I gave her another dose of Lasix 40 mg IV. No other significant change in the medications today as compared with yesterday. ASSESSMENT AND PLAN: 1. Acute non-oliguric renal failure superimposed on chronic kidney disease it was multifactorial secondary to the use of IV contrast. 2. Pericardial effusion with pericardial tamponade - The patient is clinically getting better. She actually tolerated a dose of Lasix yesterday. Creatinine is trending down. I would give her another dose of Lasix today. Continue to monitor for renal recovery. 3. Pericardial effusion - The patient most likely has a pericardial effusion associated with malignancy. She got a pericardial window and she has a drain in the pericardial cavity being managed by Surgery at this time. Volume status is being optimized with diuretics. The patient does not have any significant volume overload. 4. Large lung mass - The patient needs a CAT scan with contrast, however at this time I would avoid giving her IV contrast until her renal function is significantly better. 5. Bilateral pleural effusions most likely they are associated with malignancy. As mentioned above, the patient does not have any significant volume overload. However she was given a small dose of Lasix 40 mg per day. MTDD
--- NOTE | 2020-05-18 10:35 | IPN ---
DATE: 05/17/2020 SUBJECTIVE: The patient was seen and examined at the bedside today morning. She is very happy. She was telling me that her Cosby catheter has been removed. Her pericardial drains were also removed. Her renal function is stable. She is feeling a lot better now. She reports her shortness of breath is improved. OBJECTIVE: VITAL SIGNS: Temperature is 97.3 degrees Fahrenheit, blood pressure 122/69, pulse is 126, respiratory rate of 19, saturating 94% on room air. Intake and Output urine output recorded as 1,200 mL yesterday and only 300 mL is reported so far today. Chest tube drainage is only 22 mL. Weight on the bed scale is 82.5 kg. PHYSICAL EXAMINATION: GENERAL APPEARANCE: The patient is awake, alert, oriented x3, sitting up in the sofa in no apparent distress. HEAD AND NECK: Extraocular muscles intact. Pupils are equally round and reactive to light. Mucous membranes are moist. Neck is supple. There is no significant jugular venous distention. CARDIOVASCULAR: S1, S2, regular rate. EXTREMITIES: No edema of the bilateral lower extremities. RESPIRATORY: Mildly decreased breath sounds at the bases bilaterally. ABDOMEN: Soft, healing incision site in the epigastrium is noted. GENITOURINARY: Cosby catheter has been removed. MUSCULOSKELETAL: No clubbing, no cyanosis. Pulses are 2+. FIRE ADJUSTER: No focal deficits. Power is 5/5 in all extremities. LAB REVIEW: CBC showed a WBC 4.1, hemoglobin 11.5, platelets are 121. BMP showed sodium 137, potassium 3.4, chloride 101, bicarbonate 30, BUN 25, creatinine is 1.20. It was 1.24 yesterday. Microbiology: All the cultures are negative so far. IMAGING: A chest x-ray was done today morning. It showed two pericardial drains with small amount of pericardial air, increasing right pleural effusion. Pericardial fluid cytology was satisfactory for evaluation and it showed highly cellular specimen consisting of abundant groups of atypical cells exhibiting irregular nuclei with prominent nuclei and is positive for malignancy. Right pericardial biopsy showed metastatic adrenal carcinoma involving the soft tissue, consistent with the patient's history of lung adrenal carcinoma. CURRENT INPATIENT MEDICATIONS: The patient's medications were all reviewed by myself. She was given a dose of potassium chloride 40 mEq times one dose. I am going to give her another dose of Lasix 40 mg IV today. ASSESSMENT AND PLAN: 1. Acute renal failure it is multifactorial secondary to metastatic adrenal carcinoma with pericardial effusion and cardiac tamponade. The patient is status post drainage of pericardial fluid and she is tolerating small doses of Lasix. Her renal function is significantly better. Creatinine has been stable at around 1.2 now. 2. Shortness of breath secondary to metastatic adrenal carcinoma of the lung and some evidence of fluid overload. The patient has soft blood pressures and slightly tachycardic. She is being given small doses of Lasix everyday. Volume status is getting better. 3. Metastatic adrenal carcinoma - The patient was given an option to get an extra CAT scan with contrast done since her renal function has recovered, but I was told by the Hospitalist Service that the patient refused to have the CAT scan done and she wants to go home. 4. Hypokalemia - The patient was already given potassium chloride today morning. 5. Pericardial effusion - status post pericardial window. Fluid and pericardial specimen is positive for malignancy. Treatment is as per Hematology/Oncology. 6. Disposition the patient's renal function is stable and back to her baseline. If her creatinine stays stable by tomorrow as well, then Nephrology Service would sign off from the case. [facility]
--- NOTE | 2020-05-18 13:55 | IPN ---
DATE: 05/15/2020 SUBJECTIVE: Ms. Morejon is doing so much better today. She is completely awake and alert and animated. She can carry on a very cogent conversation. Her pain is being well controlled just with oral analgesics. Her vital signs show a T-max of 98.7 with a heart rate that ranges between 103 and 118, in sinus rhythm, respiratory rate 16-20 without the use of accessory muscles, 92-97% saturation on 1 liter nasal cannula and has a blood pressures ranging between 123/77 to 91/51. Her intake and output the past 24 hours has been recorded as 3945 in and 2358 out for a positivity of 1587 mL. She has put out 70 mL in the pericardial tube and 390 mL in the chest tube. There is no air leak. Her weight today is 85.4 kg compared to 86.4 kg yesterday. Her urine output was 1148 mL. PHYSICAL EXAMINATION: Lungs: Her lungs were actually rather clear although there is some periodic bronchophony and moderate E to A egophony in the right mid-lung malone. Percussion was full to the diaphragm as far as I can tell through her obesity. Left side is without wheezes, rhonchi or rales. Cardiac: Without murmurs or click. I do hear a pericardial friction rub most likely secondary to the pericardial tube itself; however. There is a sloshing sound additionally. S1 and S2 are normal. I cannot feel her PMI. Abdomen: Soft, nontender, bowel sounds are positive. There is no hepatomegaly that I can appreciate. There is no CVA tenderness. Extremities: No pretibial edema, no calf tenderness, no differential swelling of the upper extremities. Skin: Warm and dry and perfused without cyanosis or mottling including that of nailbeds and knees. Neck: Supple. There is no jugular venous distention, no subcutaneous emphysema, trachea is midline. HEENT: Mouth shows mucous membranes to be pink and moist. Lips, gums, tongue show no thrush. Eyes show her pupils to be equal and reactive, extraocular movements are intact, sclerae are anicteric. Her pupils today are normal and not pinpoint as they were yesterday. Neuro: CN II-XII intact with gross motor, gross sensation intact. Psychiatric: Shows her to be awake and alert, oriented times 3 with appropriate mood and affect and conversational. LABORATORY DATA: Her white count today is 8.5, hemoglobin and hematocrit of 11.7 and 38.5 respectively. Platelet count is 94, decreased from 143 yesterday. Differential shows 77% neutrophils, 10% lymphocytes, 9% monocytes. There are no immature forms or toxic granulations. Her electrolytes today are essentially normal with a BUN and creatinine of power of 24 and 1.68 which is improved over 22 and 2.10 yesterday. Glucose is 138 with a calcium of 8.2. I have gone over the slides with Dr. Cerda and indeed her pathology shows metastatic adenocarcinoma both in the pleural fluid in the pericardium and the pericardial fat. RADIOLOGY STUDIES: Her chest x-ray today shows her lungs fully expanded to the chest wall. There is pleural effusion and blunting of the right costophrenic angle. There is an opacity now more mass like in the right lower hemithorax consistent with her large tumor. The left side shows a sharp costophrenic angle and there is a small amount of mediastinal shift to the right although she is slightly rotated. Lateral view shows the tubes in good position. I have informed the patient of her diagnosis which I will discuss below. IMPRESSION: 1. Adenocarcinoma of right upper and mid-lobes and left hilar node. 2. Malignant pericardial effusion. 3. Malignant spread to the pericardium and pericardial fat. 4. Diabetes. 5. Hypertension. 6. Post-operative renal failure, improving. 7. Somnolence and narcosis, resolved. 8. Post-operative day number 2 status post pericardial window and tube pericardiostomy. PLAN/DISCUSSION: I have informed Ms. Morejon of the pathology findings. I have asked the Hospitalist Service to contact oncology. She has already been seen by Dr. Rodriguez although I do not have his consultation in front of me. We will send the specimens for all the tumor markers. I will continue her pericardial and pleural tubes. I am gratified that her renal function is improving. She has had a change in her platelet count and we will closely monitor that. It may be that we need to discontinue her heparin if the platelet count does not come up/re-stabilize. [facility]
--- NOTE | 2020-05-18 13:58 | IPN ---
DATE: 05/16/2020 SUBJECTIVE: This is now the third postoperative day for Ms. Morejon after her pericardial window. She is in very good spirits today, awake and alert and animated. PHYSICAL EXAMINATION: Her vital signs show a maximum temperature (T-max) of 98.3 with a heart rate that ranges between 109 to 117 in a sinus rhythm, respiratory rate of 18 to 16 without the use of accessory muscles who is 96% saturated on 1 liter nasal cannula. She has blood pressure ranging between 98/56 to 104/57. Her intake and output the past 24 hours has been recorded as 1105 in and 2216 out for a negativity of 1100 mL. She has put out 76 mL from the pericardial tube and 45 mL from the pleural tube. This is markedly diminished from yesterday. Weight today is 84.3 kg compared to 85.4 kg yesterday. Her urine output is markedly up to 2095 from 1148 yesterday. On physical examination she has some decreased breath sounds on the right side but the percussion note is full through the diaphragm. She has partial E:A egophony in the mid right lung field. The left side shows normal vesicular sounds without wheezes, rhonchi or rales. Cardiac exam is without murmurs or clicks but she does have a sloshing pericardial friction rub probably secondary to the pericardial tube. I cannot feel her PMI. S1, S2 are normal. Abdomen is soft, nontender. Bowel sounds are positive. There is no hepatomegaly that I can appreciate and no CVA tenderness. She has had a bowel movement today. Extremities show no pretibial edema, no calf tenderness, no differential swelling of the upper extremities. Skin is warm and dry and perfused without cyanosis or mottling including that of nailbeds and knees. Neck is supple. There is no jugular venous distention, no subcutaneous emphysema. Trachea is midline. Mouth shows her mucous membranes to be pink and moist. Lips and gums show no lesions, no thrush. Eyes show her pupils to be equal and reactive. Extraocular movements are intact. Sclerae nonicteric. Neuro shows CN II-XII intact with normal gross motor and gross sensation intact. Gait is not tested. Psychiatric shows her to be awake and alert and oriented times three with appropriate mood and affect and conversational. Her white count today is 5.3 with a hemoglobin and hematocrit of 11.2 and 36.6 respectively. Platelet count is up to 103 from 94 yesterday. Differential shows 35% neutrophils, 12% lymphocytes, 10% monocytes. There were no immature forms or toxic granulations. Electrolytes are normal with a BUN and creatinine improving to 25 and 1.24. Glucose of 144 and a calcium of 9.1. Her chest x-ray shows her lungs fully expanded to the chest wall. There is an opacity consistent with her large mid lung field mass. The pleural effusion is much improved on the right side. IMPRESSION: 1. Adenocarcinoma of right upper and middle lobes and left hilar node. 2. Malignant pericardial effusion. 3. Metastatic spread to the pericardium and pericardial fat. 4. Diabetes. 5. Hypertension. 6. Postoperative renal failure, improving. 7. Somnolence and narcosis, resolved. 8. Pericardial status post pericardial window, postoperative day number three. PLAN DISCUSSION: I will discontinue her chest tube suction today. Hopefully we will be able to remove them tomorrow and plan for discharge on Monday. Medical oncology saw her on May 14. Her PDL1 is 25% positive. She is going to be started on Keytruda and considering that her functional status is rapidly improving, she may be a candidate for systemic chemotherapy. Dr. Rodriguez of Radiation Oncology has also seen her and is going to undertake radiation therapy. KATHARINED
--- NOTE | 2020-05-18 14:01 | IPN ---
DATE: 05/17/2020 SUBJECTIVE: This is now the fourth postoperative day for Mrs. Morejon. She has put out very little from her chest tube and pericardial tube and I will remove them today. She is in very good spirits, communicating well. Her pain seems well controlled with oral analgesics. OBJECTIVE: VITAL SIGNS: Show a T-max of 98.0 with a heart rate that ranges between 118 and 109 in sinus rhythm, respiratory rate 16 to 20 without the use of accessory muscles, who is 93% saturated on room air. INTAKE AND OUTPUT: Over the past 24 hours is recorded as 1075 in and 1241 out for a negative 166 mL. She has put out 20 mL in the pericardial tube and 19 mL in the pleural tube. Her weight is 82.5 kg today and 84.3 kg yesterday. NECK: Supple. There is no jugular venous distention (JVD). No subcutaneous emphysema. Trachea is midline. MOUTH: Shows her mucous membranes to be pink and moist. Lips and gums without lesions or thrush. EYES: Show her pupils to be equal and reactive. Extraocular movements intact. Sclerae nonicteric. LUNGS: She has bilateral coarse rhonchi on both sides that mostly clear with coughing. She has some E:A egophony on the right mid hemithorax. Percussion notes are full to the diaphragm. CARDIAC: Shows a sloshing sound prior to chest tube removal with the sound being greatly diminished after the pericardial tube removal. S1 and S2 are normal. I cannot hear any murmurs. I cannot feel a point of maximal impulse (PMI). ABDOMEN: Soft and nontender. Bowel sounds positive. There is no hepatomegaly. No CVA tenderness. EXTREMITIES: Show no pretibial edema. No calf tenderness. No differential swelling of the upper extremities. SKIN: Warm, dry, and perfuse without cyanosis or mottling including that of the nail beds and knees. NEUROLOGIC: Shows II-XII intact. Normal gross motor, gross sensation intact. Gait is not tested. PSYCHIATRIC: Shows her to be awake, alert, and oriented x3 with appropriate mood and affect and conversational. LABORATORY DATA: White count today is 4.1 with a hemoglobin and hematocrit of 11.5 and 38.2 with a platelet count of 121,000. Platelet count continues to increase. Differential shows 67% neutrophils, 15% lymphocytes, and 13% monocytes. There are no immature forms or toxic granulations. Chemistries today show a markedly low potassium of 3.4 with remainder of electrolytes normal. BUN and creatinine are 25 and 1.20. Glucose is 153 with a calcium of 8.7. She had some chest pain last night and the medical service ordered troponins all of which have been less than 0.02. IMAGING: Her chest x-ray today shows the mass-like structure in the mid lung field. The right costophrenic angle is blunted. Left lung is full expanded to the chest wall with sharp costophrenic angles. Cardiac silhouette is slightly enlarged, but not globular. Pericardial tube and chest tubes are in good place on the lateral film. IMPRESSION: 1. Metastatic adenocarcinoma with right middle and lower lobe lung mass. 2. Malignant pericardial effusion. 3. Metastatic spread to pericardium and pericardial fat. 4. Diabetes. 5. Hypertension. 6. Postoperative renal failure, resolved. 7. Somnolence and narcotic narcosis resolved. 8. Postoperative day #4 status post pericardial window. PLAN AND DISCUSSION: As noted above, I will remove her chest tubes and pericardial tube today. The wound is healing well and it is clean and dry. From a surgical perspective, I have no problem with her going home tomorrow and to see me in 10 days. She has already been seen by medical and radiation oncology. She does show 25% expression of PD-L1 and is a candidate for Keytruda. AYESHA
--- NOTE | 2020-05-18 23:35 | DS.PDOC ---
Discharge Summary General Date of Admission May 12, 2020 at 14:30 Date of Discharge May 18, 2020 Discharge Summary PROCEDURES PERFORMED DURING STAY: [None]. ADMITTING DIAGNOSES: 1. . DISCHARGE DIAGNOSES: 1. . COMPLICATIONS/CHIEF COMPLAINT: Pericardial Effusion. HISTORY OF PRESENT ILLNESS: . HOSPITAL COURSE: . DISCHARGE MEDICATIONS: Please see below. ALLERGIES: Please see below. PHYSICAL EXAMINATION ON DISCHARGE: VITAL SIGNS: Please see below. GENERAL: HEENT: NECK: CARDIOVASCULAR EXAMINATION: RESPIRATORY EXAMINATION: ABDOMINAL EXAMINATION: EXTREMITIES: SKIN: NEUROLOGICAL EXAMINATION: PSYCHIATRIC EXAMINATION: LABORATORY DATA: Please see below. IMAGING: PROGNOSIS: ACTIVITY: [As tolerated]. DIET: DISCHARGE PLAN: DISPOSITION: Home, Self-Care. DISCHARGE INSTRUCTIONS: 1. . ITEMS TO FOLLOWUP ON ON OUTPATIENT: 1. . DISCHARGE CONDITION: [Stable]. TIME SPENT ON DISCHARGE: Greater than minutes. Vital Signs/I&Os Vital Signs Date Time Temp Pulse Resp B/P (MAP) Pulse Ox O2 Delivery O2 Flow Rate FiO2 05/18/20 08:00 98.2 105 20 108/66 (80) 96 Room Air 05/16/20 06:00 1.0 I&O- Last 24 Hours up to 6 AM 05/18/20 06:00 Intake Total 1465 ml Output Total 1160 ml Balance 305 ml Laboratory Data Labs 24H Laboratory Tests 2 05/18/20 04:46: Immature Granulocyte % (Auto) 0.8, Neutrophils (%) (Auto) 61.4, Lymphocytes (%) (Auto) 19.4L, Monocytes (%) (Auto) 15.4H, Eosinophils (%) (Auto) 2.0, Basophils (%) (Auto) 1.0, Neutrophils # (Auto) 2.4, Lymphocytes # (Auto) 0.8L, Monocytes # (Auto) 0.6, Eosinophils # (Auto) 0.1, Basophils # (Auto) 0.0, Nucleated Red Blood Cells % (auto) 0.0, Anion Gap 7L, Glomerular Filtration Rate 45.6, Calcium Level 8.3L 05/18/20 07:44: Bedside Glucose (Misc Panel) 116H CBC/BMP Laboratory Tests 05/18/20 04:46 FSBS Laboratory Tests Test 05/18/20 07:44 Range/Units Bedside Glucose (Misc Panel) 116 80-115 MG/DL Microbiology Microbiology 05/13/20 Acid Fast Stain, Received Pending 05/13/20 Mycobacterial Culture, Received Pending 05/13/20 Fungal Smear, Received Pending 05/13/20 Fungal Culture, Received Pending 05/13/20 Gram Stain - Final, Complete 05/13/20 Body Fluid Culture - Final, Complete 05/13/20 Anaerobic Culture - Final, Complete 05/12/20 Blood Culture - Final, Complete NO GROWTH AFTER 5 DAYS 05/12/20 Blood Culture - Final, Complete NO GROWTH AFTER 5 DAYS Discharge Medications Scheduled Empagliflozin (Jardiance) 10 Mg Tablet, 10 MG PO DAILY, (Reported) Enalapril Maleate (Enalapril Maleate) 5 Mg Tablet, 5 MG PO DAILY, (Reported) Hydrochlorothiazide (Hydrochlorothiazide) 12.5 Mg Capsule, 12.5 MG PO DAILY, (Reported) Insulin Glargine,Hum.rec.anlog (Basaglar Kwikpen U-100) 100 Unit/1 Ml Insuln.pen, 35 UNIT SC QHS, (Reported) Lovastatin (Lovastatin) 20 Mg Tablet, 20 MG PO QHS, (Reported) Metoprolol Succinate (Metoprolol Succinate) 50 Mg Tab.er.24h, 50 MG PO DAILY, (Reported) Pantoprazole Sodium (Pantoprazole Sodium) 40 Mg Tablet.dr, 40 MG PO DAILY, (Reported) Semaglutide (Ozempic) 0.25 Mg/0.2 Ml Pen.injctr, 0.5 MG SC QWEEK, (Reported) MONDAY Vilazodone HCl (Viibryd) 40 Mg Tablet, 40 MG PO DAILY, (Reported) Scheduled PRN Levalbuterol HCl (Levalbuterol HCl) 0.63 Mg/3 Ml Vial.neb, 0.63 MG NEB Q6H PRN for SHORTNESS OF BREATH, (Reported) Allergies Coded Allergies: citalopram (Verified Adverse Reaction, Severe, jittery, 05/12/20) metformin (Verified Adverse Reaction, Severe, nausea, vomiting, 05/12/20) erythromycin base (Verified Adverse Reaction, Intermediate, vomiting, 04/20/20) azithromycin (Verified Adverse Reaction, Unknown, vomiting, 05/12/20) mirtazapine (Verified Adverse Reaction, Unknown, insomnia, 05/12/20) ASHER ROGERS DO May 18, 2020 23:35
--- NOTE | 2020-05-19 20:38 | DS.PDOC ---
Discharge Summary General Date of Admission May 12, 2020 at 14:30 Date of Discharge May 18, 2020 Attending Physician: ASHER ROGERS DO Specialist/Consultants Involve CT surgery, Dr. Tran Oncology, Dr. Regalado Radiation Oncology, Dr. Rodriguez Nephrology, Dr. Rodriguez and Dr. Bowens Discharge Summary PROCEDURES PERFORMED DURING STAY: Pericardial window and chest tubes on 05/13/2020 ADMITTING DIAGNOSES: 1. Pericardial effusion 2. Pleural effusion 3. Hypertension 4. IDDM 5. GERD DISCHARGE DIAGNOSES: 1. Pericardial effusion 2. Pleural effusion 3. Metastatic adenocarcinoma 4. JOEL 5. Hypertension 6. IDDM 7. GERD COMPLICATIONS/CHIEF COMPLAINT: Pericardial Effusion. HISTORY OF PRESENT ILLNESS: Mrs. Morejon is a 64 year old female with sarcoidosis, HTN, and DM type 2 here with progressively worsening dyspnea. Her dyspnea initially started in November of 2019. Her PCP thought she had pneumonia. After 2 rounds of prednisone and antibiotics not improving her symptoms, she was sent to pulmonary for further evaluation. Imaging demonstrated malignancy and fluid in her lung. She was then sent to the ED. CTA of the chest demonstrated a large right perihilar mass, bilateral pleural effusion, and 2.4 cm pericardial effusion. The ED consulted CT surgery, Dr. Tran who recommended a stat echocardiogram and a stat read for the pericardial effusion. Otherwise when I spoke with her, her dyspnea has been progressively worsening. Denies sick contacts, heart disease, or renal disease. Recently had a dry cough, but denies fever/chills, chest pain, abdominal pain, diarrhea or dysuria. Patient was moved up to the ICU. Dr. Tran and patient had a long conversation about the procedure. Patient would like to discuss with . Tentatively planning for pericardial window tomorrow morning. HOSPITAL COURSE: Patient decided to proceed with procedure. Dr. Tran placed the pericardial window and chest tubes. That evening, her urine output decreased. Creatinine jumped from 1.1 to 2 and she was anuric despite fluids bolus and maintenance fluid. Nephrology was consulted. Gave her Lasix and supportive care. Renal function started to improve. Oncology and Radiation oncology was consulted. Oncology planned to start Pembrolizumab outpatient when patient was more stable. Radiation oncologist planned for palliative radiation, but requested CT abd/pelvis with IV contrast to help determine amount of treatment. At that time, her renal function still had not returned to normal. As she was improving, chest tubes were removed. She was hoping to return home on 05/18/2020 to see family before they flew home. On 05/17/2020, we tried to obtained CT abd/pelvis with IV contrast, but patient was worried that if her kidney's were injured again she would stay in the hospital longer and she would miss her family. She wanted to do the IV contrast study outpatient. She und erstood that it may delay her treatment. Otherwise, on the day of discharge, she felt well. Her breathing improved and she felt ready for home. DISCHARGE MEDICATIONS: Please see below. ALLERGIES: Please see below. PHYSICAL EXAMINATION ON DISCHARGE: VITAL SIGNS: Please see below. GENERAL: Comfortable, in no apparent distress. HEENT: Head normocephalic/atraumatic, EOMI, sclera clear. NECK: Supple RESPIRATORY: Lungs clear to auscultation bilaterally CARDIOVASCULAR: Regular rate and rhythm. ABDOMEN: Soft, nontender, no guarding or rebound tenderness. Normal bowel sounds. MUSCLE SKELETAL: Muscle strength 5/5 in all extremities. NEUROLOGICAL: CN 312 grossly intact, no focal deficits noted. PSYCHOLOGICAL: Normal mood and affect LABORATORY DATA: Please see below. IMAGING: CTA of chest 1. No CT evidence of pulmonary thromboembolism. 2. Large right hilar perihilar mass extending vertically at least 10 cm by 9.3 x 4.5 cm as pleural extensions along both medial and lateral aspects of the lung base. Small pleural effusion on the right trace on the left. This represents a lung malignancy. 3. Mediastinal and some left hilar adenopathy as described above. There are a couple of the satellite nodule suspected in the right upper lobe. 4. Pericardial effusion up to 2.4 cm thick posteriorly only minimal enlargement of the cardiac silhouette. Some gastric Paddock ligament nodes evident. 5. Enlargement left hepatic lobe and splenomegaly. This suggests chronic liver disease. No definite bone lesion. Echocardiogram 1. Study is of fair technical quality. The patient is in sinus rhythm. 2. Large circumferential pericardial effusion. Its largest diameter is close to left ventricular apex. No signs of cardiac compression. 3. Normal LV size and systolic function, grade 1 diastolic dysfunction. 4. No significant valvular disease. 5. Likely normal central venous pressure and borderline pulmonary hypertension. PROGNOSIS: Stable ACTIVITY: As tolerated. DIET: Consistent carbohydrate DISCHARGE PLAN: Home DISPOSITION: Home, Self-Care. DISCHARGE INSTRUCTIONS: 1. Follow up with your PCP within 5 days 2. Follow up with your oncologist within 5 days 3. Follow up with your radiation oncologist with in 5 days DISCHARGE CONDITION: Stable Total time spent on discharge planning, discharge summary, and medication reconciliation 45 minutes Vital Signs/I&Os Vital Signs Date Time Temp Pulse Resp B/P (MAP) Pulse Ox O2 Delivery O2 Flow Rate FiO2 05/18/20 08:00 98.2 105 20 108/66 (80) 96 Room Air 05/16/20 06:00 1.0 I&O- Last 24 Hours up to 6 AM 05/18/20 06:00 Intake Total 1465 ml Output Total 1160 ml Balance 305 ml Laboratory Data Labs 24H Laboratory Tests 2 05/18/20 04:46: Immature Granulocyte % (Auto) 0.8, Neutrophils (%) (Auto) 61.4, Lymphocytes (%) (Auto) 19.4L, Monocytes (%) (Auto) 15.4H, Eosinophils (%) (Auto) 2.0, Basophils (%) (Auto) 1.0, Neutrophils # (Auto) 2.4, Lymphocytes # (Auto) 0.8L, Monocytes # (Auto) 0.6, Eosinophils # (Auto) 0.1, Basophils # (Auto) 0.0, Nucleated Red Blood Cells % (auto) 0.0, Anion Gap 7L, Glomerular Filtration Rate 45.6, Calcium Level 8.3L 05/18/20 07:44: Bedside Glucose (Misc Panel) 116H CBC/BMP Laboratory Tests 05/18/20 04:46 FSBS Laboratory Tests Test 05/18/20 07:44 Range/Units Bedside Glucose (Misc Panel) 116 80-115 MG/DL Microbiology Microbiology 05/13/20 Acid Fast Stain, Received Pending 05/13/20 Mycobacterial Culture, Received Pending 05/13/20 Fungal Smear, Received Pending 05/13/20 Fungal Culture, Received Pending 05/13/20 Gram Stain - Final, Complete 05/13/20 Body Fluid Culture - Final, Complete 05/13/20 Anaerobic Culture - Final, Complete 05/12/20 Blood Culture - Final, Complete NO GROWTH AFTER 5 DAYS 05/12/20 Blood Culture - Final, Complete NO GROWTH AFTER 5 DAYS Discharge Medications Scheduled Empagliflozin (Jardiance) 10 Mg Tablet, 10 MG PO DAILY, (Reported) Enalapril Maleate (Enalapril Maleate) 5 Mg Tablet, 5 MG PO DAILY, (Reported) Hydrochlorothiazide (Hydrochlorothiazide) 12.5 Mg Capsule, 12.5 MG PO DAILY, (Reported) Insulin Glargine,Hum.rec.anlog (Basaglar Kwikpen U-100) 100 Unit/1 Ml Insul n.pen, 35 UNIT SC QHS, (Reported) Lovastatin (Lovastatin) 20 Mg Tablet, 20 MG PO QHS, (Reported) Metoprolol Succinate (Metoprolol Succinate) 50 Mg Tab.er.24h, 50 MG PO DAILY, (Reported) Pantoprazole Sodium (Pantoprazole Sodium) 40 Mg Tablet.dr, 40 MG PO DAILY, (Reported) Semaglutide (Ozempic) 0.25 Mg/0.2 Ml Pen.injctr, 0.5 MG SC QWEEK, (Reported) MONDAY Vilazodone HCl (Viibryd) 40 Mg Tablet, 40 MG PO DAILY, (Reported) Scheduled PRN Levalbuterol HCl (Levalbuterol HCl) 0.63 Mg/3 Ml Vial.neb, 0.63 MG NEB Q6H PRN for SHORTNESS OF BREATH, (Reported) Allergies Coded Allergies: citalopram (Verified Adverse Reaction, Severe, jittery, 05/12/20) metformin (Verified Adverse Reaction, Severe, nausea, vomiting, 05/12/20) erythromycin base (Verified Adverse Reaction, Intermediate, vomiting, 04/20/20) azithromycin (Verified Adverse Reaction, Unknown, vomiting, 05/12/20) mirtazapine (Verified Adverse Reaction, Unknown, insomnia, 05/12/20) ASHER ROGERS DO May 18, 2020 23:36
== END 2020-05-18 11:19 | disposition home or self-care (01) | DRG 164 ==
LOC: M ED 12:10 → M ED INP 14:30 → ENRESERVDT 14:40 → ENRESERVTM 14:40 → M ICU 16:00
PROVIDERS: ADMIT Thoracic Surgery (Cardiothoracic Vascular Surgery); ATTEND Internal Medicine
PROC: 0W9D00Z Drainage of Pericardial Cavity with Drainage Device, Open Approach (ICD-10-PCS; 2020-05-13)
PROC: 0W9900Z Drainage of Right Pleural Cavity with Drainage Device, Open Approach (ICD-10-PCS; 2020-05-13)
PROC: 02BN0ZZ Excision of Pericardium, Open Approach (ICD-10-PCS; principal; 2020-05-13 13:00)
DX: C34.81 Malignant neoplasm of overlapping sites of right bronchus and lung (principal); J91.0 Malignant pleural effusion; I31.3 Pericardial effusion (noninflammatory); N17.9 Acute kidney failure, unspecified; C79.89 Secondary malignant neoplasm of other specified sites; C34.02 Malignant neoplasm of left main bronchus; I12.9 Hypertensive chronic kidney disease with stage 1 through stage 4 chronic kidney disease, or unspecified chronic kidney disease; E78.5 Hyperlipidemia, unspecified; E87.5 Hyperkalemia; N18.9 Chronic kidney disease, unspecified; R07.89 Other chest pain; Z20.828 Contact with and (suspected) exposure to other viral communicable diseases; Z86.711 Personal history of pulmonary embolism; R06.89 Other abnormalities of breathing; K21.9 Gastro-esophageal reflux disease without esophagitis; L40.9 Psoriasis, unspecified; E11.22 Type 2 diabetes mellitus with diabetic chronic kidney disease; I95.81 Postprocedural hypotension; D86.2 Sarcoidosis of lung with sarcoidosis of lymph nodes; Z88.1 Allergy status to other antibiotic agents; Z88.8 Allergy status to other drugs, medicaments and biological substances; E66.9 Obesity, unspecified; Z79.4 Long term (current) use of insulin; Z87.891 Personal history of nicotine dependence; Z79.899 Other long term (current) drug therapy; Z68.34 Body mass index [BMI] 34.0-34.9, adult

== ENCOUNTER → 2020-05-28 | Outpatient (CLI) | payer OTHER ==
[~2020-05-28] MED LIST changes: +ALBU8.5H; +LEVA0.6322 NEB
--- NOTE | 2020-05-28 13:37 | RADENCPD ---
Date/Time of Encounter Date of Encounter: May 28, 2020 Time of Encounter: 13:20 Encounter Mercedes has elected to proceed with palliative RT to her chest. She has noted increasing SOB in the past week. She saw pulmonology today and has an US of her BL UE ordered. She has a medical oncology follow up on 06/12/20. Immunotherapy has been recommended. I recommend we proceed with split course RT 50 Gy in 20 fractions with a 2 week break after 25 Gy the purpose is to minimize side effects and assess for positive response from RT. The benefit would be some local control of the pulmonary masses and hopefully improved aeration of the lungs. The side effects are fatigue, esophagitis and rarely pneumonitis. She agreed and wishes to proceed with treatment. Simulation will occur today. PATEL RUSSO MD May 28, 2020 13:37
== END ==
LOC: M ONCR 12:58
PROVIDERS: ATTEND General Practice
DX: C34.11 Malignant neoplasm of upper lobe, right bronchus or lung (principal)

== ENCOUNTER → 2020-05-28 | Outpatient (CLI) | payer OTHER ==
--- NOTE | 2020-05-28 11:35 | REPPI ---
INDICATION: MALIGNANT NEOPLASM,RIGHT AND LEFT COMPARISON: 05/18/2020 TECHNIQUE: PA and lateral. FINDINGS: Hazy opacifications involving the mid to lower lung zones (right greater than left) suggests possible trapped pleural fluid within the fissures as well as small amount of basilar pleural fluid. Associated lower lobe atelectasis (right greater than left) is also suggested. Findings are similar to prior examination. Visualized portions of the mediastinum and cardiac silhouette are stable. No obvious pneumothorax. Skeletal structures closely intact. IMPRESSION: Hazy opacification of the bilateral mid to lower lung zones (right greater than left) consistent with pleural fluid predominately trapped within the fissure and associated bibasilar atelectasis/airspace disease. Findings similar to prior examination. <Electronically signed by Tomi Tejeda > 05/28/20 [id number]
== END ==
LOC: M PLAIMG 10:26
PROVIDERS: ATTEND Thoracic Surgery (Cardiothoracic Vascular Surgery)
DX: C34.12 Malignant neoplasm of upper lobe, left bronchus or lung (principal); C34.11 Malignant neoplasm of upper lobe, right bronchus or lung; J90 Pleural effusion, not elsewhere classified

== ENCOUNTER → 2020-05-28 | Outpatient (CLI) | payer OTHER ==
--- NOTE | 2020-05-28 15:00 | REP ---
INDICATION: R/O DVT CALL BILL AT [phone] AFTER US IS DONE. COMPARISON: None. TECHNIQUE: Multiple ultrasonographic images of the deep venous structures of the bilateral thigh were obtained from the common femoral vein to the popliteal vein along with Doppler interrogation and color flow Doppler images. FINDINGS: There is no abnormal echogenic material seen within any of the visualized deep venous structures that would suggest acute thrombosis. Coaptation is unremarkable throughout. Doppler interrogation shows an expected response to respiratory variability and augmentation. The color flow images show what appears to be a normal vascular pattern throughout. IMPRESSION: There is no ultrasonographic evidence of deep venous thrombosis involving any of the visualized deep venous structures of the bilateral thigh, as described above. <Electronically signed by Linwood Corado > 05/28/20 [id number]
== END ==
LOC: M RAD 14:12
PROVIDERS: ATTEND Thoracic Surgery (Cardiothoracic Vascular Surgery)
DX: R22.43 Localized swelling, mass and lump, lower limb, bilateral (principal)

== ENCOUNTER → 2020-06-02 | Outpatient (CLI) | payer OTHER ==
[~2020-06-02] MED LIST changes: +ACET1TAB55 PO; -ALBU8.5H; +ALBU8.5H INH
== END ==
LOC: M PLARAD 11:26
PROVIDERS: ATTEND Internal Medicine Pulmonary Disease
DX: C34.11 Malignant neoplasm of upper lobe, right bronchus or lung (principal)

== ENCOUNTER 2020-06-03 15:04 | Outpatient (RCR) | payer OTHER ==
[~2020-06-03 15:04] MED LIST changes: -ACET1TAB55 PO
[2020-06-09] MEDS ORDERED: ACET1TAB55 PO (11:48)
[2020-06-10] MEDS ORDERED: ZOFR4TAB16 PO (15:39)
== END 2020-06-08 ==
LOC: M ONCR 15:04
PROVIDERS: ATTEND General Practice
DX: C34.11 Malignant neoplasm of upper lobe, right bronchus or lung (principal)

== ENCOUNTER 2020-06-06 11:04 | Inpatient (IN) | payer OTHER, MEDICARE ==
[2020-06-06] VITALS (12 sets, daily range): BP systolic 85–121; BP diastolic 53–65
[~2020-06-06] VITALS: Ht 152.4 cm; Wt 86.2 kg
--- NOTE | 2020-06-06 11:47 | REP ---
INDICATION: SOB COMPARISON: 05/28/2020 TECHNIQUE: Portable AP view of the chest FINDINGS: Larger opacity nearly completely opacifies the right hemithorax suggesting pleural effusion and underlying airspace disease along with opacity to the left lower lung zone suggesting associated airspace disease and smaller effusion. IMPRESSION: Bilateral pleuroparenchymal opacities (right greater than left) suggesting effusions and underlying airspace disease. <Electronically signed by Tomi Tejeda > 06/06/20 [id number]
[2020-06-06 11:50] LABS: BASO # 0.1 10^3/uL (0.0-0.2); BASO % 0.6 % (0.0-1.0); EOS # 0.1 10^3/uL (0.0-0.5); EOS % 1.3 % (0.0-3.0); HEMATOCRIT 42.9 % (36.0-47.0); HEMOGLOBIN 12.3 g/dl (12.0-15.5); LYMPH # 0.8 10^3/uL (1.5-5.0); LYMPH % 9.5 % (24.0-44.0); MEAN CORPUSCULAR HEMOGLOBIN 24.7 pg (27.0-33.0); MEAN CORPUSCULAR HGB CONC 28.7 g/dl (32.0-36.5); MEAN CORPUSCULAR VOLUME 86.1 fl (80.0-96.0); MONO # 0.7 10^3/uL (0.0-0.8); MONO % 8.9 % (0.0-5.0); NEUTROPHILS # 6.3 10^3/uL (1.5-8.5); NEUTROPHILS % 79.2 % (36.0-66.0); PLATELET COUNT, AUTOMATED 231 10^3/uL (150-450); RED BLOOD COUNT 4.98 10^6/uL (4.00-5.40)
[2020-06-06 12:04] LABS: INR 1.03; PROTHROMBIN TIME 13.7 SECONDS (12.5-14.3)
[2020-06-06 12:37] LABS: ALBUMIN 2.8 GM/DL (3.2-5.2); BILIRUBIN,DIRECT 0.4 MG/DL (0.0-0.2); BILIRUBIN,TOTAL 1.4 MG/DL (0.2-1.0); TOTAL PROTEIN 6.6 GM/DL (6.4-8.2)
[2020-06-06] MEDS ORDERED: ISOVUE-370 76% 100ML VIAL As Ordered ONE (13:05)
--- NOTE | 2020-06-06 13:31 | REP ---
INDICATION: sob COMPARISON: None. TECHNIQUE: Axial contrast enhanced images from the thoracic inlet to the upper abdomen using pulmonary embolus technique with multiplanar re-formations. 75 ml Isovue 370 intravenous contrast material administered without complication. This CT examination was performed using the following dose reduction techniques: Automated exposure control, adjustment of mA and/or kv according to the patient's size, and use of iterative reconstruction technique. FINDINGS: Satisfactory enhancement of the pulmonary vasculature is achieved and no filling defects are identified to suggest pulmonary embolus. Further evaluation of the mediastinum demonstrates normal thoracic aorta without aneurysm or dissection. Atherosclerotic changes to the coronary arteries noted along with pericardial effusion. There is soft tissue filling the mediastinum with primary extension to the right hilum and right lung including upper lobe, middle lobe and lower lobe consolidations. Associated left axillary, mediastinal and hilar adenopathy is appreciated along with moderate left and large right pleural effusions. Musculoskeletal structures appear intact and without acute osseous abnormality. IMPRESSION: 1. No evidence for pulmonary embolus. 2. Mass/consolidation extending from the mediastinum into the right lung along with adenopathy, bilateral pleural effusions, bibasilar atelectasis and pericardial fluid most compatible with malignancy. <Electronically signed by Tomi Tejeda > 06/06/20 1218
--- NOTE | 2020-06-06 13:40 | REP ---
INDICATION: abd eric. COMPARISON: None TECHNIQUE: Axial contrast-enhanced images from the lung bases to the pubic symphysis using 100 cc Isovue 370 intravenous contrast material. Coronal and sagittal reformations obtained. This CT examination was performed using the following dose reduction techniques: Automated exposure control, adjustment of mA and/or kv according to the patient's size, and the use of iterative reconstruction technique. FINDINGS: Liver demonstrates heterogeneous low-density parenchymal opacifications along with micronodular contour and splenomegaly suggesting cirrhosis and portal hypertension. Small amount of ascites in a right perihepatic and pelvic distribution noted along with significant upper abdominal adenopathy primarily involving gastroesophageal and gastrohepatic distribution as well as at the andreia hepatis and celiac axis with conglomerate lymph nodes measuring up to 4.6 x 2.5 x 3.0 cm. Gallbladder suggests small amount of sludge/gravel. Pancreas is grossly unremarkable. Bilateral adrenal glands and left kidney appear normal. Right kidney includes simple appearing cysts up to 2.5 cm. The enteric system is without obstruction. Colonic and sigmoid diverticulosis noted. Pelvis demonstrates normal bladder and evidence for prior hysterectomy. Atherosclerotic changes to the aorta and vasculature noted without aneurysm or dissection. Musculoskeletal structures demonstrate degenerative changes without acute osseous abnormality. IMPRESSION: 1. Small amount of right upper quadrant and pelvic ascites along with considerable adenopathy consistent with malignancy. 2. Changes suggesting cirrhosis and portal hypertension. 3. Relatively simple appearing right renal cysts. <Electronically signed by Tomi Tejeda > 06/06/20 0512
--- NOTE | 2020-06-06 13:54 | ECGEPIP ---
[facility] - ED Test Date: 2020-06-06 Pat Name: CODY AMATO Department: Room: - Gender: Female In[employer] Aide: edilberto : 1955 Requested By: Aury Deluca Order Number: [id number] Reading MD: Aury Deluca Measurements Intervals [place] Rate: 99 P: 22 [place]: 140 QRS: -2 QRSD: 72 T: 123 QT: 347 QTc: 446 Interpretive Statements SINUS RHYTHM LOW QRS VOLTAGE IN PRECORDIAL LEADS NEW T WAVE ABNORMALITY 05/17/20 Electronically Signed on 06-06-2020 13:54:20 EST by Aury Deluca
--- NOTE | 2020-06-06 14:13 | REP ---
INDICATION: swelling COMPARISON: None. TECHNIQUE: Ellis scale and color Doppler evaluation left lower extremity using linear high frequency transducer. FINDINGS: Ultrasound examination of the left lower extremity deep venous structures from the common femoral vein to the popliteal vein demonstrates normal compressibility flow and wave patterns in response to respiration and augmentation. There is no evidence for deep venous thrombosis. 2.7 x 1.3 x 0.3 cm fluid collection the popliteal fossa consistent with Bose's cyst. IMPRESSION: No evidence for deep venous thrombosis. Bose's cyst. <Electronically signed by Tomi Tejeda > 06/06/20 [id number]
[2020-06-06] MEDS ORDERED: MAALOX 30 ML SUSP *UDC PO PRN (16:15)
[2020-06-06] MEDS ORDERED: MOM 30ML SUSPENSION UDC PO PRN (16:15)
[2020-06-06] MEDS: ACETAMINOPHEN TAB 650MG DOSE (2X325MG) PO PRN (16:34)
--- NOTE | 2020-06-06 16:36 | HPEPDOC ---
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 Recently hospitalized for significant dyspnea secondary to pericardial effusion and bilateral pleural effusions., malignant in origin. Dr. Tran was consulted and placed placed a pericardial window as well as chest tubes that were subsequently removed. Patient was discharged home on May 18, 2020. Patient returns now with progressive shortness of breath for the past week. She denies pressure-like chest pain, palpitations, dizziness, lightheadedness, fevers or chills. Her exercise tolerance is significantly diminished. She continues to undergo staging for lung Ca on outpatient basis. CT chest, abdo and pelvis showing recurrence of bilatreral pleural effusions, as well as abdominal adenopathy consistent metastatic progression. PAST MEDICAL HISTORY: 1. Sarcoidosis 2. HTN 3. IDDM 4. History of pulmonary embolism 5. GERD 6. Psoriasis PAST SURGICAL HISTORY: 1. Hysterectomy 2. Hernia repair SOCIAL HISTORY: Former smoker, [id number] history, quit 30 years ago FAMILY HISTORY: Mother had congestive heart failure Father had emphysema Sr. had colon cancer, now ALLERGIES: Please see below. REVIEW OF SYSTEMS: CONSTITUTIONAL: patient denies fevers, chills HEENT: patient denies blurred vision, loss of vision, headache,. CARDIOVASCULAR: patient denies chest pain, palpitations. RESPIRATORY: Shortness of breath at rest and exertion GASTROINTESTINAL: patient denies abdominal pain, n/v/d, blood in stool. GENITOURINARY: patient denies dysuria, discharge. SKIN: patient denies rashes. MUSCULOSKELETAL: patient denies joint pain, neck pain. NEUROLOGICAL: patient denies focal weakness, numbness, seizures. PSYCHIATRIC: patient denies SI/HI. ENDOCRINE: patient denies polyuria, heat intolerance, cold intolerance. HEMATOLOGIC/LYMPHATIC: patient denies easy bruising. HOME MEDICATIONS: Please see below. PHYSICAL EXAMINATION: VITAL SIGNS: please see below General: NAD, comfortable HEENT: PERRLA, EOMI, sclerae clear Neck: supple, normal ROM, no JVD Respiratory: Bilateral crackles noted. Lung bases reduced inspiratory effort reduced lung aeration CVS: RRR, normal S1, S2, no murmurs Abdo: soft, no masses, no hepatosplenomegaly, BS+, no rebound tenderness Extremities: no edema, pulses 2+ MSK: no joint deformities, normal ROM Neuro: no focal neuro deficits, moving all 4 extremities, CN2-12 intact. Strength 5/5 in all 4 extremities. No nystagmus. Psych: calm, cooperative, AAO x 3 LABORATORY DATA: See below. IMAGING: LLE venous duplex:(06/06/20): IMPRESSION: No evidence for deep venous thrombosis. Bose's cyst CT Abdo/Pelvis w IV contrast (06/06/20): IMPRESSION: 1. Small amount of right upper quadrant and pelvic ascites along with cons iderable adenopathy consistent with malignancy. 2. Changes suggesting cirrhosis and portal hypertension. 3. Relatively simple appearing right renal cysts. CTA Chest (06/06/20): IMPRESSION: 1. No evidence for pulmonary embolus. 2. Mass/consolidation extending from the mediastinum into the right lung along with adenopathy, bilateral pleural effusions, bibasilar atelectasis and pericardial fluid most compatible with malignancy. CXR (06/06/20): IMPRESSION: Bilateral pleuroparenchymal opacities (right greater than left) suggesting effusions and underlying airspace disease. MICROBIOLOGY: Please see below. ASSESSMENT: 64-year-old female with a history of DM 2, sarcoid, metastatic adenocarcinoma of the right upper and middle lobes, presented with worsening shortness of breath after being recently discharged from hospital for pericardial effusion as well as pleural effusions requiring stent placement. Patient returns with recurrent pleural effusion as well as pericardial effusion. Thoracic surgery consulted. PLAN: #Pericardial effusion: Pericardial window was placed on 05/13. Dr. Tran on prior admission. Discussed with Dr. Tran. Obtain stat echo. Thoracic Surgery consultation. # Bilateral pleural effusions: She had chest x-ray and CT. Dr. Tran consulted, plan for pleurX catheter to be placed. #Metastatic adenocarcinoma of the right upper and middle lobes: diagnosed. In September 2019. Patient has been followed by oncology and radiation oncology. Final staging ongoing, however, CT abdomen and pelvis with IV contrast showing significant intra-abdominal lymphadenopathy consistent with metastatic disease. Patient followed by Dr. Regalado with the [facility]. As well as DrAdrian from radiation oncology. #DM2: Insulin sliding scale. FSBS AC and HS. Consistent carbohydrate diet. Hypoglycemic precautions. Dispo: admit to PCU. Admission likely to span > 2 midnights. Vital Signs Vital Signs Date Time Temp Pulse Resp B/P (MAP) Pulse Ox O2 Delivery O2 Flow Rate FiO2 06/06/20 11:57 06/06/20 11:05 97.6 102 20 100 Nasal Cannula 3.0 Laboratory Data Labs 24H Laboratory Tests 2 06/06/20 11:11: Bedside Glucose (Misc Panel) 103 06/06/20 11:40: Immature Granulocyte % (Auto) 0.5, Neutrophils (%) (Auto) 79.2H, Lymphocytes (%) (Auto) 9.5L, Monocytes (%) (Auto) 8.9H, Eosinophils (%) (Auto) 1.3, Basophils (%) (Auto) 0.6, Neutrophils # (Auto) 6.3, Lymphocytes # (Auto) 0.8L, Monocytes # (Auto) 0.7, Eosinophils # (Auto) 0.1, Basophils # (Auto) 0.1, Nucleated Red Blood Cells % (auto) 0.0, Prothrombin Time 13.7, Prothromb Time International Ratio 1.03, Total Bilirubin 1.4H, Direct Bilirubin 0.4H, Aspartate Amino Transf (AST/SGOT) 26, Alanine Aminotransferase (ALT/SGPT) 13, Alkaline Phosphatase 261H, Total Protein 6.6, Albumin 2.8L, Albumin/Globulin Ratio 0.7L, Lipase 298 06/06/20 11:47: POC Glucose (Misc Panel) 94, POC Sodium (Misc Panel) 139, POC Potassium (Misc Panel) 4.3, POC Chloride (Misc Panel) 101, POC Total CO2 (Misc Panel) 25.0, POC Blood Urea Nitrogen (Misc Panel 26, POC Ionized Calcium (Misc Panel) 4.6, POC Creatinine (Misc Panel) 0.6, POC Hematocrit (Misc Panel) 42.0 06/06/20 11:50: POC Troponin I (Misc) 0.00 06/06/20 13:58: Coronavirus (COVID-19)(PCR) NEGATIVE CBC/BMP Laboratory Tests 06/06/20 11:40 Home Medications Scheduled Empagliflozin (Jardiance) 10 Mg Tablet, 10 MG PO DAILY Insulin Glargine,Hum.rec.anlog (Basaglar Kwikpen U-100) 100 Unit/1 Ml Insuln.pen, 33 UNIT SC QHS Semaglutide (Ozempic) 0.25 Mg/0.2 Ml Pen.injctr, 0.5 MG SC QWEEK MONDAY Vilazodone HCl (Viibryd) 40 Mg Tablet, 40 MG PO DAILY Scheduled PRN Acetaminophen (Acetaminophen) 325 Mg Tablet, 650 MG PO Q4H PRN for Pain Albuterol Sulfate (Albuterol Sulfate Hfa) 8.5 Gm Hfa.aer.ad, 2 PUFFS INH Q4H PRN for SOB/WHEEZING Levalbuterol HCl (Levalbuterol HCl) 0.63 Mg/3 Ml Vial.neb, 0.63 MG NEB Q6H PRN for SHORTNESS OF BREATH Allergies Coded Allergies: citalopram (Verified Adverse Reaction, Severe, jittery, 05/12/20) metformin (Verified Adverse Reaction, Severe, nausea, vomiting, 05/12/20) erythromycin base (Verified Adverse Reaction, Intermediate, vomiting, 04/20/20) azithromycin (Verified Adverse Reaction, Unknown, vomiting, 05/12/20) mirtazapine (Verified Adverse Reaction, Unknown, insomnia, 05/12/20) A-FIB/CHADSVASC A-FIB History Current/History of A-Fib/PAF?: No Current PO Anticoag Therapy: No SOHA BUI MD Jun 06, 2020 16:36
[2020-06-06] MEDS ORDERED: NORCO, ANEXSIA 5/325MG TABLET (HYDROcodone/ACETAMINOPHEN) PO PRN (16:45)
[2020-06-06] MEDS ORDERED: LEVALBUTEROL 1.25 MG/0.5 ML CONCENTRATE NEB NEB PRN (16:45)
[2020-06-06] MEDS ORDERED: BISACODYL 10 MG SUPP PR PRN (16:45)
[2020-06-06] MEDS ORDERED: GLUCAGON INJ 1MG VIAL SC PRN (16:45)
[2020-06-06] MEDS ORDERED: DEXTROSE 50% 50 ML SYRINGE IV PRN (16:45)
[2020-06-06] MEDS ORDERED: GLUCOSE 4GM CHEW TABLET PO PRN (16:45)
[2020-06-06] MEDS ORDERED: PERCOCET 5MG/325MG TAB PO PRN ×2 (16:45)
[2020-06-06] MEDS ORDERED: KCL 20MEQ IN D5/NS 1000ML 1,000 ML IV SCH (17:00)
[2020-06-06] MEDS ORDERED: MIDAZOLAM INJ 2MG/2ML VIAL (J2250 PER 1MG) As Ordered ONE (17:08)
[2020-06-06] MEDS ORDERED: flumazeniL 0.5 MG/5 ML VIAL As Ordered ONE (17:08)
[2020-06-06] MEDS ORDERED: LIDOCAINE 1% MDV 20ML VIAL As Ordered ONE (17:09)
[2020-06-06 17:20] LABS: ABG BASE EXCESS -3.3 (-2.0-2.0); ABG HCO3 22.2 MEQ/L (22.0-26.0); ABG O2 SATURATION 97.3 % (95.0-99.0); ABG PARTIAL PRESSURE CO2 41.7 mmHg (35.0-45.0); ABG PARTIAL PRESSURE O2 92.5 mmHg (75.0-100.0); ABG STANDARD HCO3 21.7 MEQ/L (22.0-26.0); ABG TOTAL CO2 23.5 MEQ/L (23.0-31.0); ABG pH (ARTERIAL) 7.344 UNITS (7.350-7.450)
[2020-06-06] MEDS: HumaLOG INSULIN (NovoLOG) PER UNIT SC SCH ×2 (17:30→21:00)
[2020-06-06] MEDS ORDERED: ceFAZolin 1GM VIAL (J0690 PER 500MG) As Ordered ONE (17:40)
[2020-06-06] MEDS ORDERED: MIDAZOLAM INJ 2MG/2ML VIAL (J2250 PER 1MG) IV STA ×2 (17:50→17:54)
[2020-06-06] MEDS ORDERED: LIDOCAINE 1% MDV 20ML VIAL SC ONE ×2 (17:54→17:55)
[2020-06-06] MEDS ORDERED: ONDANSETRON 4MG/2ML VIAL IV ONE (18:00)
[2020-06-06] MEDS ORDERED: ceFAZolin SOD 1 GM in D5W MINI-BAG PLUS 50 ML IV ONE (18:00)
[2020-06-06] MEDS: PANTOPRAZOLE 40MG TAB (PROTONIX) PO SCH (18:38)
--- NOTE | 2020-06-06 18:45 | REP ---
INDICATION: pleural effusion after pleurx COMPARISON: 06/06/2020 TECHNIQUE: Portable AP view of the chest FINDINGS: Chest tube in the right lower lung zone is identified and there is decreased right pleural effusion. Moderate residual right pleural fluid, small left pleural effusion, and bilateral lower lobe infiltrates are suggested. IMPRESSION: Decreased right sided effusion. Continued bilateral pleural fluid and bilateral lower lobe opacities. <Electronically signed by Tomi Tejeda > 06/06/20 [id number]
[2020-06-06 18:59] LABS: SOURCE, BODY FLUID pH PLEURAL
[2020-06-06 19:13] LABS: BLOOD UREA NITROGEN 21 MG/DL (7-18); CALCIUM LEVEL 8.6 MG/DL (8.8-10.2); CARBON DIOXIDE LEVEL 25 MEQ/L (21-32); CHLORIDE LEVEL 106 MEQ/L (98-107); CREATININE FOR GFR 0.75 MG/DL (0.55-1.30); GLOMERULAR FILTRATION RATE > 60.0 (>45); GLUCOSE, FASTING 82 MG/DL (70-100); POTASSIUM SERUM 3.6 MEQ/L (3.5-5.1); SODIUM LEVEL 141 MEQ/L (136-145)
[2020-06-06] MEDS: KETOROLAC 30 MG/ML 1ML VIAL IV SCH ×2 (19:25→23:37)
[2020-06-06 19:28] LABS: AMYLASE, BODY FLUID 44 U/L (NOT ESTABLISHED); CHOLESTEROL, BODY FLUID < 50 MG/DL (NOT ESTABLISHED); LDH, BODY FLUID 110 U/L (NOT ESTABLISHED); SOURCE, BODY FLUID ALBUMIN PLEURAL; SOURCE, BODY FLUID AMYLASE PLEURAL; SOURCE, BODY FLUID CHOL PLEURAL; SOURCE, BODY FLUID GLUCOSE PLEURAL; SOURCE, BODY FLUID LDH PLEURAL; SOURCE, BODY FLUID TOT PROTEIN PLEURAL; SOURCE, BODY FLUID TRIG PLEURAL; TRIGLYCERIDE, BODY FLUID 34 MG/DL (NOT ESTABLISHED)
[2020-06-06 19:47] LABS: APPEARANCE, BODY FLUID CLOUDY (CLEAR); PLEURAL FL COLOR YELLOW (COLORLESS); SOURCE, BODY FLUID PLEURAL
[2020-06-06] MEDS: LEVALBUTEROL 1.25 MG/0.5 ML CONCENTRATE NEB NEB SCH (20:05)
[2020-06-06] MEDS: DOCUSATE SODIUM 100MG CAPSULE PO SCH (21:00)
[2020-06-06] MEDS: ENOXAPARIN 40MG/0.4ML SYRINGE (J1650 PER 10MG) SC SCH (21:54)
[2020-06-07] VITALS: BP 116/60
[2020-06-07] MEDS: LEVALBUTEROL 1.25 MG/0.5 ML CONCENTRATE NEB NEB SCH ×4 (01:33→19:47)
[2020-06-07 04:00] VITALS: BP 113/57
[2020-06-07 04:05] LABS: BASO # 0.1 10^3/uL (0.0-0.2); BASO % 1.1 % (0.0-1.0); EOS # 0.2 10^3/uL (0.0-0.5); EOS % 3.5 % (0.0-3.0); HEMATOCRIT 38.9 % (36.0-47.0); HEMOGLOBIN 11.4 g/dl (12.0-15.5); LYMPH # 0.5 10^3/uL (1.5-5.0); MEAN CORPUSCULAR HEMOGLOBIN 25.4 pg (27.0-33.0); MEAN CORPUSCULAR HGB CONC 29.3 g/dl (32.0-36.5); MEAN CORPUSCULAR VOLUME 86.6 fl (80.0-96.0); MONO # 0.7 10^3/uL (0.0-0.8); MONO % 13.6 % (0.0-5.0); NEUTROPHILS # 3.9 10^3/uL (1.5-8.5); NEUTROPHILS % 72.4 % (36.0-66.0); PLATELET COUNT, AUTOMATED 205 10^3/uL (150-450); RED BLOOD COUNT 4.49 10^6/uL (4.00-5.40); WHITE BLOOD COUNT 5.4 10^3/uL (4.0-10.0)
[2020-06-07 04:24] LABS: CALCIUM LEVEL 8.3 MG/DL (8.8-10.2); CREATININE FOR GFR 1.05 MG/DL (0.55-1.30); GLOMERULAR FILTRATION RATE 55.8 (>45); POTASSIUM SERUM 3.4 MEQ/L (3.5-5.1)
[2020-06-07 05:55] LABS: ABG BASE EXCESS 0.5 (-2.0-2.0); ABG HCO3 26.4 MEQ/L (22.0-26.0); ABG O2 SATURATION 99.2 % (95.0-99.0); ABG PARTIAL PRESSURE CO2 47.8 mmHg (35.0-45.0); ABG PARTIAL PRESSURE O2 147.9 mmHg (75.0-100.0); ABG TOTAL CO2 27.9 MEQ/L (23.0-31.0)
[2020-06-07] MEDS: KETOROLAC 30 MG/ML 1ML VIAL IV SCH ×4 (06:09→23:57)
[2020-06-07 07:31] VITALS: BP 103/54
--- NOTE | 2020-06-07 08:30 | REP ---
INDICATION: pleural efffuions COMPARISON: 06/06/2020 TECHNIQUE: PA and lateral. FINDINGS: Visualized portions of the mediastinum are stable. Chest tube at the right base with moderate hydropneumothorax similar to prior examination. Small right pleural effusion and bilateral lower lobe infiltrates again noted and relatively unchanged. IMPRESSION: 1. Right chest tube and right hydropneumothorax similar to most recent prior examination. 2. Bilateral lower lobe infiltrates and small left pleural effusion remains stable. <Electronically signed by Tomi Tejeda > 06/07/20 [id number]
[2020-06-07] MEDS: ACETAMINOPHEN TAB 650MG DOSE (2X325MG) PO PRN (08:44)
[2020-06-07] MEDS: PANTOPRAZOLE 40MG TAB (PROTONIX) PO SCH (08:44)
[2020-06-07] MEDS: DOCUSATE SODIUM 100MG CAPSULE PO SCH ×2 (08:45→21:00)
[2020-06-07] MEDS: HumaLOG INSULIN (NovoLOG) PER UNIT SC SCH ×4 (08:45→21:00)
--- NOTE | 2020-06-07 10:40 | IPNPDOC ---
Date Seen The patient was seen on 06/07/20. Progress Note SUBJECTIVE: She was seen and examined at bedside this morning. She is doing well. She is a little bit short of breath but otherwise saturating any percent on 2 L of oxygen via nasal cannula. She does not have any fevers, chills, no cough. Denies any chest pain, palpitations. OBJECTIVE PHYSICAL EXAMINATION: VITAL SIGNS: please see below General: NAD, comfortable HEENT: PERRLA, EOMI, sclerae clear Neck: supple, normal ROM, no JVD Respiratory: Bilateral crackles noted. Lung bases reduced inspiratory effort reduced lung aeration CVS: RRR, normal S1, S2, no murmurs Abdo: soft, no masses, no hepatosplenomegaly, BS+, no rebound tenderness Extremities: no edema, pulses 2+ MSK: no joint deformities, normal ROM Neuro: no focal neuro deficits, moving all 4 extremities, CN2-12 intact. Strength 5/5 in all 4 extremities. No nystagmus. Psych: calm, cooperative, AAO x 3 LABORATORY DATA, IMAGING STUDIES, MICROBIOLOGY: Please see below. LLE venous duplex:(06/06/20): IMPRESSION: No evidence for deep venous thrombosis. Bose's cyst CT Abdo/Pelvis w IV contrast (06/06/20): IMPRESSION: 1. Small amount of right upper quadrant and pelvic ascites along with considerable adenopathy consistent with malignancy. 2. Changes suggesting cirrhosis and portal hypertension. 3. Relatively simple appearing right renal cysts. CTA Chest (06/06/20): IMPRESSION: 1. No evidence for pulmonary embolus. 2. Mass/consolidation extending from the mediastinum into the right lung along with adenopathy, bilateral pleural effusions, bibasilar atelectasis and pericardial fluid most compatible with malignancy. CXR (06/06/20): IMPRESSION: Bilateral pleuroparenchymal opacities (right greater than left) suggesting effusions and underlying airspace disease. Echocardiogram: Stat echo was performed on 05/29/20 was forwarded to elicit. There is no sign for recurrent pericardial effusion. DVT prophylaxis ordered?: ASSESSMENT: 64-year-old female with a history of DM 2, sarcoid, metastatic adenocarcinoma of the right upper and middle lobes, presented with worsening shortness of breath after being recently discharged from hospital for pericardial effusion as well as pleural effusions requiring stent placement. Patient returns with recurrent pleural effusion as well as pericardial effusion. Thoracic surgery consulted. PLAN: #Pericardial effusion: Pericardial window was placed on 05/13. Dr. Tran on prior admission. Discussed with Dr. Tran. Obtain stat echo - no evidence for pericardial effusion per Dr. Sheehan. Thoracic Surgery consultation # Bilateral pleural effusions: She had chest x-ray and CT. Dr. Tran consulted, plan for pleurX catheter to be placed to R chest. #Metastatic adenocarcinoma of the right upper and middle lobes: diagnosed. In September 2019. Patient has been followed by oncology and radiation oncology. Final staging ongoing, however, CT abdomen and pelvis with IV contrast showing significant intra-abdominal lymphadenopathy consistent with metastatic disease. Patient followed by Dr. Regalado with the [facility]. Spending the CT findings to the patient, will follow up with Dr. Regalado as wellas radiation oncology for a PET/CT to complete staging. #DM2: Insulin sliding scale. FSBS AC and HS. Consistent carbohydrate diet. Hypoglycemic precautions. #hypokalemia: K 3.4, replace. Dispo: admit to PCU. Admission likely to span > 2 midnights. VS, I&O, 24H, [facility] Vital Signs/I&O Vital Signs Date Time Temp Pulse Resp B/P (MAP) Pulse Ox O2 Delivery O2 Flow Rate FiO2 06/07/20 08:00 2.0 06/07/20 07:31 97.7 95 22 103/54 (70) 98 Nasal Cannula I&O- Last 24 Hours up to 6 AM 06/07/20 06:00 Intake Total 840 ml Output Total 700 ml Balance 140 ml Laboratory Data 24H LABS Laboratory Tests 2 06/06/20 11:11: Bedside Glucose (Misc Panel) 103 06/06/20 11:40: Immature Granulocyte % (Auto) 0.5, Neutrophils (%) (Auto) 79.2H, Lymphocytes (%) (Auto) 9.5L, Monocytes (%) (Auto) 8.9H, Eosinophils (%) (Auto) 1.3, Basophils (%) (Auto) 0.6, Neutrophils # (Auto) 6.3, Lymphocytes # (Auto) 0.8L, Monocytes # (Auto) 0.7, Eosinophils # (Auto) 0.1, Basophils # (Auto) 0.1, Nucleated Red Blood Cells % (auto) 0.0, Prothrombin Time 13.7, Prothromb Time International Ratio 1.03, Total Bilirubin 1.4H, Direct Bilirubin 0.4H, Aspartate Amino Transf (AST/SGOT) 26, Alanine Aminotransferase (ALT/SGPT) 13, Alkaline Phosphatase 261H, Total Protein 6.6, Albumin 2.8L, Albumin/Globulin Ratio 0.7L, Lipase 298 06/06/20 11:47: POC Glucose (Misc Panel) 94, POC Sodium (Misc Panel) 139, POC Potassium (Misc Panel) 4.3, POC Chloride (Misc Panel) 101, POC Total CO2 (Misc Panel) 25.0, POC Blood Urea Nitrogen (Misc Panel 26, POC Ionized Calcium (Misc Panel) 4.6, POC Creatinine (Misc Panel) 0.6, POC Hematocrit (Misc Panel) 42.0 06/06/20 11:50: POC Troponin I (Misc) 0.00 06/06/20 13:58: Coronavirus (COVID-19)(PCR) NEGATIVE 06/06/20 15:00: Body Fluid pH 7.600, Body Fluid pH Source PLEURAL, Body Fluid WBC (Auto) 154H, B rusty Fluid RBC (Auto) 5, Body Fluid Mononuclear Cells % Auto 85.7H, Fluid Polymorphonuclear Cell % Auto 14.3H, Body Fluid Glucose Source PLEURAL, Body Fluid Glucose 83, Body Fluid Protein Source PLEURAL, Body Fluid Total Protein 3.0, Body Fluid Albumin Source PLEURAL, Body Fluid Albumin 1.0, Body Fluid LDH Source PLEURAL, Body Fluid Lactate Dehydrogenase 110, Body Fluid Amylase Source PLEURAL, Body Fluid Amylase 44, Body Fluid Cholesterol < 50, Body Fluid Cholesterol Source PLEURAL, Body Fluid Triglyceride Source PLEURAL, Body Fluid Triglycerides 34, Pleural Fluid Source PLEURAL, Pleural Fluid Color YELLOW, Pleural Fluid Appearance CLOUDY 06/06/20 17:09: Blood Gas Bicarbonate Standard 21.7L, Arterial Blood pH 7.344L, Arterial Blood Partial Pressure CO2 41.7, Arterial Blood Partial Pressure O2 92.5, Arterial Blood Total CO2 23.5, Arterial Blood HCO3 22.2, Arterial Blood Base Excess - 3.3L, Arterial Blood Oxygen Saturation 97.3 06/06/20 18:29: Anion Gap 10, Glomerular Filtration Rate > 60.0, Calcium Level 8.6L, Lactate Dehydrogenase 181 06/06/20 18:48: Bedside Glucose (Misc Panel) 73L 06/06/20 20:03: Bedside Glucose (Misc Panel) 169H 06/07/20 03:29: Immature Granulocyte % (Auto) 0.4, Neutrophils (%) (Auto) 72.4H, Lymphocytes (%) (Auto) 9.0L, Monocytes (%) (Auto) 13.6H, Eosinophils (%) (Auto) 3.5H, Basophils (%) (Auto) 1.1H, Neutrophils # (Auto) 3.9, Lymphocytes # (Auto) 0.5L, Monocytes # (Auto) 0.7, Eosinophils # (Auto) 0.2, Basophils # (Auto) 0.1, Nucleated Red Blood Cells % (auto) 0.0, Anion Gap 7L, Glomerular Filtration Rate 55.8, Calcium Level 8.3L 06/07/20 05:50: Blood Gas Bicarbonate Standard 25.0, Arterial Blood pH 7.360, Arterial Blood Pa rtial Pressure CO2 47.8H, Arterial Blood Partial Pressure O2 147.9H, Arterial Blood Total CO2 27.9, Arterial Blood HCO3 26.4H, Arterial Blood Base Excess 0.5, Arterial Blood Oxygen Saturation 99.2H 06/07/20 07:58: Bedside Glucose (Misc Panel) 113 CBC/BMP Laboratory Tests 06/06/20 11:40 06/06/20 18:29 06/07/20 03:29 Microbiology Microbiology 06/06/20 Acid Fast Stain, Received Pending 06/06/20 Mycobacterial Culture, Received Pending 06/06/20 Fungal Smear, Received Pending 06/06/20 Fungal Culture, Received Pending 06/06/20 Gram Stain - Final, Resulted 06/06/20 Body Fluid Culture, Resulted Pending 06/06/20 Anaerobic Culture, Resulted Pending SOHA BUI MD Jun 07, 2020 10:40
[2020-06-07] MEDS ORDERED: POTASSIUM CHLORIDE 10 MEQ SR TABLET PO ONE (10:45)
[2020-06-07 12:01] VITALS: BP 118/64
[2020-06-07 16:25] VITALS: BP 121/65
[2020-06-07 20:00] VITALS: BP 108/58
[2020-06-07] MEDS: ENOXAPARIN 40MG/0.4ML SYRINGE (J1650 PER 10MG) SC SCH (21:02)
[2020-06-08] VITALS: BP 120/72
[2020-06-08] MEDS: LEVALBUTEROL 1.25 MG/0.5 ML CONCENTRATE NEB NEB SCH ×4 (01:01→19:33)
[2020-06-08] MEDS: ONDANSETRON 4MG/2ML VIAL IV PRN ×2 (03:39→10:10)
[2020-06-08 04:00] VITALS: BP 120/76
[2020-06-08 05:46] LABS: BASO % 1.1 % (0.0-1.0); EOS # 0.2 10^3/uL (0.0-0.5); EOS % 4.4 % (0.0-3.0); HEMATOCRIT 36.6 % (36.0-47.0); HEMOGLOBIN 10.5 g/dl (12.0-15.5); LYMPH # 0.4 10^3/uL (1.5-5.0); LYMPH % 10.2 % (24.0-44.0); MEAN CORPUSCULAR HEMOGLOBIN 25.1 pg (27.0-33.0); MEAN CORPUSCULAR HGB CONC 28.7 g/dl (32.0-36.5); MEAN CORPUSCULAR VOLUME 87.4 fl (80.0-96.0); MONO # 0.5 10^3/uL (0.0-0.8); MONO % 14.6 % (0.0-5.0); NEUTROPHILS # 2.5 10^3/uL (1.5-8.5); NEUTROPHILS % 68.9 % (36.0-66.0); PLATELET COUNT, AUTOMATED 159 10^3/uL (150-450); RED BLOOD COUNT 4.19 10^6/uL (4.00-5.40); WHITE BLOOD COUNT 3.6 10^3/uL (4.0-10.0)
[2020-06-08] MEDS: KETOROLAC 30 MG/ML 1ML VIAL IV SCH ×4 (06:00→23:09)
[2020-06-08 06:14] LABS: CALCIUM LEVEL 8.8 MG/DL (8.8-10.2); CREATININE FOR GFR 1.13 MG/DL (0.55-1.30); GLOMERULAR FILTRATION RATE 51.3 (>45)
[2020-06-08] MEDS: HumaLOG INSULIN (NovoLOG) PER UNIT SC SCH ×4 (07:30→21:00)
[2020-06-08 08:00] VITALS: BP 128/73
--- NOTE | 2020-06-08 08:28 | REP ---
INDICATION: pleural efffuions COMPARISON: 06/07/2020 TECHNIQUE: PA and lateral. FINDINGS: Stable chest tube at the right base. Bilateral lower lobe opacities (right greater than left) consistent with pleural effusions and airspace disease similar to prior examination. IMPRESSION: Bilateral pleural effusions and airspace disease (right greater than left) similar to prior examination. <Electronically signed by Tomi Tejeda > 06/08/20 0861
--- NOTE | 2020-06-08 08:39 | RADENCPD ---
Date/Time of Encounter Date of Encounter: Jun 08, 2020 Time of Encounter: 08:30 Encounter Note Mercedes is inpatient, I have reviewed her imaging and see that her effusions have worsened acutely. I think she would benefit from drainage prior to resumption of her palliative RT to the right chest. Will follow along with the team and look to resume radiation in the coming 1-2 days. PATEL RUSSO MD Jun 08, 2020 08:39
--- NOTE | 2020-06-08 09:46 | ECHO ---
DATE OF PROCEDURE: 06/06/2020 Age: 64 Gender: Female Height: 60 inches Weight: 189 pounds Body surface area: 1.82 m2 PATIENT LOCATION: Inpatient PCU Room 3211. REFERRING PHYSICIAN: Dr. Tran. INDICATION: Rule out pericardial effusion. Status post pericardiotomy and drainage. MEASUREMENTS: 2D Measurements: RV 4.0 cm LV 3.8 cm Septum 1.0 cm Posterior wall 1.0 cm Aortic Root 2.9 cm LA 3.6 cm LVEF 65% Doppler Measurements: AV 1.33 m/s LVOT 0.95 m/s MV-E 108, A 55, E/A ratio 2.0 Early mitral deceleration time 250 msec E prime medial 6.6, A prime medial 10, E prime lateral 7.8 Average E/E prime ratio 15/PCWP 20.5 mmHg PV 1.0 m/s Pulmonary artery acceleration time 103 msec RVSP 48 mmHg IVC 1.9 cm COMMENTS: Normal sinus rhythm without intraventricular conduction disturbance. M-mode and two-dimensional echocardiography was performed with pulse, continuous wave, color flow, and tissue Doppler studies. Normal left ventricular size and wall thickness with obvious systolic G-shaped septum in keeping with right ventricular pressure overload. Other left ventricular wagner move normally. Global left ventricular systolic function was intact. Left atrial size upper limits of normal with grade 2 left ventricular (LV) diastolic dysfunction and at least mildly increased estimated mean left atrial pressure. Right heart chamber sizes were upper limits of normal to slightly increased. Right ventricular free wall motion appeared to be normal and estimated pulmonary arterial pressure was at least moderately increased. Inferior vena cava (IVC) size was upper limits of normal with adequate respiratory collapse against an elevated central venous pressure at this time. Normal aortic root size. Normal appearing and functioning aortic valve. Mild degenerative changes of the mitral valve apparatus without a functional abnormality. Normal appearing tricuspid valve with some mild tricuspid insufficiency. No apparent intracardiac mass. There was a small posterior pericardial effusion measuring 0.5 cm significantly less than that recorded 05/12/2020. No signs of cardiac compression. A preliminary report of this study was relayed to the patients primary physician, Dr. Garcia, 06/06/2020, following its performance. This is a late dictation of the complete study. AYESHA
[2020-06-08] MEDS: DOCUSATE SODIUM 100MG CAPSULE PO SCH ×2 (10:10→21:00)
[2020-06-08] MEDS: PANTOPRAZOLE 40MG TAB (PROTONIX) PO SCH (10:10)
[2020-06-08 12:00] VITALS: BP 122/65
--- NOTE | 2020-06-08 13:54 | RO ---
OPERATIVE NOTE DATE OF OPERATION: 06/06/2020 PREOPERATIVE DIAGNOSIS: Recurrent malignant pleural effusion, right side. POSTOPERATIVE DIAGNOSIS: Recurrent malignant pleural effusion, right side. SURGEON: Alfonso Tran M.D. PROCEDURE: Insertion of right PleurX catheter with moderate sedation. DESCRIPTION OF PROCEDURE: After satisfactory moderate sedation achieved with 3 mg of Versed, the patient was prepped and draped in the usual sterile fashion. She had quite large pendulous breasts, which nursing staff held out of the way. The skin overlying the entry site and the exit site were then infiltrated with 1% Lidocaine. Fluid was found and a Explorer needle was placed into the pleural cavity. A guidewire was then placed. Two incisions were made, one over the guidewire and one at the exit site. A tunnel was created from the exit site to the entry site, and the PleurX catheter pulled through. The tract was dilated, and then a Peel-Away introducer placed. The catheter was placed with Peel-Away introducer. This was appropriately positioned. Posterior wound was closed with running 4-0 Monocryl subcuticular suture and the catheter was secured successfully with 3-0 silk suture. The patient tolerated the procedure well, and a chest x-ray is pending.
--- NOTE | 2020-06-08 14:21 | CR ---
CONSULTATION CONSULTATION REQUESTED BY: Hospitalist service, Dr. Garcia. REASON FOR CONSULTATION: Shortness of breath and a recurrent right pleural effusion. 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 She was recently in the hospital in early May with a pericardial effusion and tamponade for which she underwent a pericardial window. Today, she complains over the last week of feeling increasingly short of breath; such that now, that she can hardly walk to go to the bathroom at home. She is short of breath at rest, just sitting or lying. She cannot lie flat in a bed, although that has been chronic for quite a number of years. She has noted some leg swelling over the past couple of days. She has some chest discomfort over the xiphoid and lower sternum. It hurts to press on it. This is where her incision site is. She has only had a minimal cough and no sputum production. There is no difficulty swallowing and she does not choke with swallowing. PAST MEDICAL HISTORY: 1. Diabetes. 2. Hypertension. 3. The above malignancy. 4. Gastroesophageal reflux disease. 5. Hyperlipidemia. 6. Sarcoidosis. 7. Psoriasis. 8. Pulmonary embolism. PAST SURGICAL HISTORY: 1. Hysterectomy. 2. Left-sided tendon repair of her hand. 3. Mediastinoscopy in the remote past where her sarcoidosis was diagnosed. ALLERGIES: AZITHROMYCIN, DITROPAN, METFORMIN, MIRTAZAPINE. HABITS: She is a former smoker having smoked a pack of Alna per day, but quit approximately 30 years ago. Denies alcohol use or illicit drugs. EXPOSURE: She has one cat, but no birds or dogs. TRAVEL HISTORY: She has been to [place], but not to the [facility]. 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 She cannot remember having had a TB test. She has no exposure to asbestos. FAMILY HISTORY: Mother with congestive heart failure and father of emphysema. Sister from colon cancer. REVIEW OF SYSTEMS: Constitutional: Without fevers or chills. She has been sweating over the last couple of days. There is no rigor. Eyes: Without diplopia. Without amaurosis fugax. Without prior jaundice. Nose: Without epistaxis. Mouth: Has her own teeth. Respiratory: See History of Present Illness. Cardiac: See History of Present Illness. Prior pericardial effusion with tamponade less than a month ago. Without prior myocardial infarctions. She has a history of supraventricular tachycardia. She has noticed an increased heart rate and palpitations in the last few days. No intermittent claudication. GI: Now with nausea, but no vomiting. No diarrhea or constipation. No melena, hematochezia, hematemesis, or abdominal pain. : Without dysuria or hematuria. She does have a history of a renal stone in the past. Endocrine: Without thyroid disease, but with diabetes. Neurologic: Without paresthesias, paralysis, or prior seizures. Psychiatric: Without pathological anxieties or psychosis, but is treated for depression. PHYSICAL EXAMINATION: GENERAL: Well-developed, very obese white female in moderate distress with shortness of breath. VITAL SIGNS: Temperature is 98.4 with a heart rate of 97 in sinus rhythm. Respiratory rate of 22 with the use of cervical accessory muscles who is 100% saturated on 3 liter nasal cannula. Blood pressure 124/58. EYES: Pupils equal, round, reactive to light. Extraocular movements intact. Sclerae nonicteric. NOSE: Without deformity. MOUTH: Shows mucous membranes to be pink and moist. Lips and gums with no lesions. She has her own teeth in fairly good repair. HEAD: Normocephalic. NECK: Supple. There is no jugular venous distention. No subcutaneous emphysema. Trachea is midline. There is no lymphadenopathy or thyromegaly. LUNGS: Show decreased breath sounds on the right side with end-expiratory wheezing at the very end of expiration on both sides. Percussion is dull on the right side as far as I can tell through her morbid obesity. There is no E:A egophony that I can appreciate. CARDIAC: Shows normal S1, S2 without murmurs, clicks, gallops, or rubs. I cannot feel her PMI. ABDOMEN: Soft and nontender. Bowel sounds are positive. There is no hepatosplenomegaly. No CVA tenderness. She is slightly tender around her incision and just above it over the lower sternum to deep palpation. EXTREMITIES: Show trace to 1+ pretibial edema on the left and not on the right. There is no calf tenderness. She has palpable dorsalis pedis pulses. There is no differential swelling of the upper extremities and there is no calf tenderness. LYMPHATICS: Show no axillary, supraclavicular, or cervical lymphadenopathy. There is no infraclavicular lymphadenopathy. NEUROLOGIC: Shows II-XII intact. Normal gross motor. Gross sensation intact. Gait is not tested. Psychiatric shows her to be awake, alert, and oriented x3 with appropriate mood and affect, and conversational. SKIN: Warm, dry, and perfuse without cyanosis or mottling including that of the nail beds and knees. INVESTIGATIONS: Her white count is 8.0 with a hemoglobin and hematocrit of 12.3 and 42.9. Platelet count is 231,000. Differential shows 79% neutrophils, 9% lymphocytes, and 8% monocytes. There are no immature forms or toxic granulations. Her electrolytes were for some reason not ordered in the emergency room. I have ordered them and they are pending. Total bilirubin is 1.4 with an AST and ALT of 26 and 13 respectively. Albumin is 2.8. Lipase is 298. Her chest x-ray done portably shows a large opacity on the right side obscuring the right costophrenic angle. Trachea is in the midline; however, there is no mediastinal shift. Her CT angio did not show a pulmonary embolism. She has a moderate right side pleural effusion with underlying lung compression. She has a large mass with postobstructive atelectasis of the middle and lower lobes. There is a [id number] left side pleural effusion. She does not have a pericardial effusion, although she has fluid in the mediastinum above the takeoff of the great vessels. I cannot be sure whether this is within the pericardium or pleural. I suspect this was in the pericardium, but it is just below the reflection. It does not look to be surrounding the cardiac mass, however. At this point, I do not think that it is physiologically significant. She has an open SVC. IMPRESSION: 1. Metastatic adenocarcinoma, right lung. 2. Malignant pericardial effusion initially drained with a pericardial window. 3. Malignant pleural effusion on the right with also a pleural effusion on the left. 4. Hypertension. 5. Diabetes. 6. Psoriasis. 7. History of pulmonary embolism. 8. History of sarcoidosis. 9. Gastroesophageal reflux disease. 10. Hyperlipidemia. 11. Morbid obesity. PLAN AND DISCUSSION: As the pleural effusion looks to be compressing at least some of the lung and is recurrent, I will place a PleurX catheter rather than drain it directly with a chest tube. I will closely watch the pericardial effusion. Again, it is above the takeoff of the great vessels and is not impeding the cardiac mass. The SVC is open and there is no evidence of SVC syndrome. I will await the performance of the echocardiogram. Once I am sure that her creatinine is acceptable, I will add Toradol to the analgesic mix.
--- NOTE | 2020-06-08 14:37 | IPN ---
PROGRESS NOTE DATE: 06/07/2020 SUBJECTIVE: Ms. Morejon is feeling a bit down today as her hospital physician indicated to her that she had lymphadenopathy below the diaphragm. On review of the prior chest CT, she shows that lymphadenopathy and it does not represent new disease, but rather the same disease. It has not changed since the institution of her radiation therapy. It certainly would not be expected to as the radiation therapy is being confined to the chest. She is start chemotherapy some time in the next two weeks. OBJECTIVE: VITAL SIGNS: Show a T-max of 98.0 with a heart rate that ranges between 88 and 104 in sinus rhythm and respiratory rate of 19-22 without the use of accessory muscle who is 96-99% saturated on 2 liters nasal cannula, and her blood pressure is ranging between 103/54 to 131/65. INTAKE/OUTPUT: Over the past 24 hours has been recorded as 240 in and 500 out for a negativity of 260 mL. She had 570 mL out her PleurX catheter last night. Her weight today is 86.2 kg compared to 86.1 kg yesterday. LUNGS: She has coarse rhonchi and rales on the right side, but with some expiratory wheezing on both sides. Breath sounds are decreased in the right mid hemithorax. Percussion notes are full from the diaphragm, however, CARDIAC: Without murmurs, clicks, gallops, or rubs. I cannot feel her PMI. S1, S2 are normal. ABDOMEN: Soft and nontender. Bowel sounds are positive. There is no hepatomegaly and no CVA tenderness. EXTREMITIES: Show no pretibial edema. No calf tenderness. No differential swelling of the upper extremities. SKIN: Warm, dry, and perfuse without cyanosis or mottling including that of the nail beds and knees. NECK: Supple. There is no jugular venous distention. No subcutaneous emphysema. Trachea is midline. MOUTH: Shows the mucous membranes to be pink and moist. Lips and gums without lesions. No thrush. EYES: Show pupils to be equal and reactive. Extraocular muscles intact. Sclerae nonicteric. NEUROLOGIC: Shows II-XII intact. Normal gross motor. Gross sensation intact. Gait is not tested. PSYCHIATRIC: Shows her to be awake, alert, and oriented x3 with appropriate mood and affect, and conversational. LABORATORY DATA: Her white count today is 5.4 with hemoglobin and hematocrit of 11.4 and 38.9 slightly down from 12.3 and 42.9 yesterday. Platelet count is 205,000. Differential shows 72% neutrophils, 9% lymphocytes, and 13% monocytes. There are no immature forms or toxic granulations. Her electrolytes today show a potassium of 3.4 with the remainder of her electrolytes normal. BUN and creatinine are 23 and 1.05 up from 21 and 0.75 yesterday. Glucose is 117, calcium is 8.3. Her pleural fluid has been returned with a pH of 7.6 with a glucose of 83 and LDH of 110 with a corresponding serum LDH of 181, making this fairly exudative. Her white cell count is 154 with 85% mononuclears and lymphocytes and 14% neutrophils. Her chest x-ray today shows clearing of the pleural effusion. She still has the large mass in the right mid lung field. PleurX catheter looks to be in good place. Lateral chest x-ray is not showing infiltrates posteriorly. IMPRESSION: 1. Adenocarcinoma of the lung stage IV with metastatic spread to the pericardium and pericardial fluid and pleural fluid along with infradiaphragmatic lymphadenopathy. 2. Hypertension. 3. Prior sarcoidosis. 4. Diabetes. 5. Gastroesophageal reflux disease (GERD). 6. History of pulmonary embolism. 7. Hypertension. PLAN AND DISCUSSION: We will teach Ms. Morejon to drain her bottles and use the PleurX catheter today. I will also ask for home health care to see her over the same week when she is discharged. I see no reason why she cannot be discharged tomorrow so long as she is confident with her bottles and we can arrange help for her at home. Directly because of the COVID restrictions, her spouse cannot be with her for teaching.
[2020-06-08 16:00] VITALS: BP 136/69
--- NOTE | 2020-06-08 19:19 | IPNPDOC ---
Date Seen The patient was seen on 06/08/20. Progress Note SUBJECTIVE: She was seen and examined at bedside this morning. She is doing well. She denies any worsening shortness of breath. She has a plugged right Pleurx catheter in place. Drain once every 2 days. Has drained approximately 700 mL over last 2 days OBJECTIVE PHYSICAL EXAMINATION: VITAL SIGNS: please see below General: NAD, comfortable HEENT: PERRLA, EOMI, sclerae clear Neck: supple, normal ROM, no JVD Respiratory: Bilateral crackles noted. Lung bases reduced inspiratory effort reduced lung aeration Chest: Right Pleurx catheter in place CVS: RRR, normal S1, S2, no murmurs Abdo: soft, no masses, no hepatosplenomegaly, BS+, no rebound tenderness Extremities: no edema, pulses 2+ MSK: no joint deformities, normal ROM Neuro: no focal neuro deficits, moving all 4 extremities, CN2-12 intact. Strength 5/5 in all 4 extremities. No nystagmus. Psych: calm, cooperative, AAO x 3 LABORATORY DATA, IMAGING STUDIES, MICROBIOLOGY: Please see below. CXR (06/08/20) FINDINGS: Stable chest tube at the right base. Bilateral lower lobe opacities (right greater than left) consistent with pleural effusions and airspace disease similar to prior examination. IMPRESSION: Bilateral pleural effusions and airspace disease (right greater than left) similar to prior examination. LLE venous duplex:(06/06/20): IMPRESSION: No evidence for deep venous thrombosis. Bose's cyst CT Abdo/Pelvis w IV contrast (06/06/20): IMPRESSION: 1. Small amount of right upper quadrant and pelvic ascites along with considerable adenopathy consistent with malignancy. 2. Changes suggesting cirrhosis and portal hypertension. 3. Relatively simple appearing right renal cysts. CTA Chest (06/06/20): IMPRESSION: 1. No evidence for pulmonary embolus. 2. Mass/consolidation extending from the mediastinum into the right lung along with adenopathy, bilateral pleural effusions, bibasilar atelectasis and pericardial fluid most compatible with malignancy. CXR (06/06/20): IMPRESSION: Bilateral pleuroparenchymal opacities (right greater than left) suggesting effusions and underlying airspace disease. Echocardiogram: 06/06/20 INDICATION: Rule out pericardial effusion. Status post pericardiotomy and drainage. MEASUREMENTS: 2D Measurements: RV 4.0 cm LV 3.8 cm Septum 1.0 cm Posterior wall 1.0 cm Aortic Root 2.9 cm LA 3.6 cm LVEF 65% Doppler Measurements: AV 1.33 m/s LVOT 0.95 m/s MV-E 108, A 55, E/A ratio 2.0 Early mitral deceleration time 250 msec E prime medial 6.6, A prime medial 10, E prime lateral 7.8 Average E/E prime ratio 15/PCWP 20.5 mmHg PV 1.0 m/s Pulmonary artery acceleration time 103 msec RVSP 48 mmHg IVC 1.9 cm COMMENTS: Normal sinus rhythm without intraventricular conduction disturbance. M-mode and two-dimensional echocardiography was performed with pulse, continuouswave, color flow, and tissue Doppler studies. Normal left ventricular size and wall thickness with obvious systolic G- shapedseptum in keeping with right ventricular pressure overload. Other left ventricular wagner move normally. Global left ventricular systolic function was intact. Left atrial size upper limits of normal with grade 2 left ventricular (LV) diastolic dysfunction and at least mildly increased estimated mean left atrial pressure. Right heart chamber sizes were upper limits of normal to slightly increased. Right ventricular free wall motion appeared to be normal and estimated pulmonaryarterial pressure was at least moderately increased. Inferior vena cava (IVC) size was upper limits of normal with adequate respiratory collapse against an elevated central venous pressure at this time. Normal aortic root size. Normal appearing and functioning aortic valve. Mild degenerative changes of the mitral valve apparatus without a functional ab normality. Normal appearing tricuspid valve with some mild tricuspid insufficiency. No apparent intracardiac mass. There was a small posterior pericardial effusion measuring 0.5 cm significantly less than that recorded 05/12/2020. No signs of cardiac compression. DVT prophylaxis ordered?: ASSESSMENT: 64-year-old female with a history of DM 2, sarcoid, metastatic adenocarcinoma of the right upper and middle lobes, presented with worsening shortness of breath after being recently discharged from hospital for pericardial effusion as well as pleural effusions requiring stent placement. Patient returns with recurrent pleural effusion as well as pericardial effusion. Thoracic surgery consulted. PLAN: #Pericardial effusion: Pericardial window was placed on 05/13. Dr. Tran on prior admission. Discussed with Dr. Tran. Obtain stat echo - no evidence for pericardial effusion per Dr. Sheehan. Thoracic Surgery consultation # Bilateral pleural effusions: R>L.Can be DC'd with home health to assist with drainage once every 2 days. Discharge was delayed as home health could not come to patient's home until 06/10. Plan to drain pleurx on 06/09, and DC home. Insurance has approved the pleurx bottles. #Metastatic adenocarcinoma of the right upper and middle lobes: diagnosed. In September 2019. Patient has been followed by oncology and radiation oncology. Final staging ongoing, however, CT abdomen and pelvis with IV contrast showing significant intra-abdominal lymphadenopathy consistent with metastatic disease. Patient followed by Dr. Regalado with the [facility]. Spending the CT f indings to the patient, will follow up with Dr. Regalado as wellas radiation oncology for a PET/CT to complete staging. #DM2: Insulin sliding scale. FSBS AC and HS. Consistent carbohydrate diet. Hypoglycemic precautions. #hypokalemia: K 3.4, replace. Dispo: admit to PCU. Admission likely to span > 2 midnights. VS, I&O, 24H, [facility] Vital Signs/I&O Vital Signs Date Time Temp Pulse Resp B/P (MAP) Pulse Ox O2 Delivery O2 Flow Rate FiO2 06/08/20 16:00 2.0 06/08/20 16:00 97.3 110 20 136/69 (91) 98 Nasal Cannula I&O- Last 24 Hours up to 6 AM 06/08/20 06:00 Intake Total 478 ml Output Total 1100 ml Balance -622 ml Laboratory Data 24H LABS Laboratory Tests 2 06/07/20 20:57: Bedside Glucose (Misc Panel) 182H 06/08/20 03:27: Bedside Glucose (Misc Panel) 154H 06/08/20 05:19: Immature Granulocyte % (Auto) 0.8, Neutrophils (%) (Auto) 68.9H, Lymphocytes (%) (Auto) 10.2L, Monocytes (%) (Auto) 14.6H, Eosinophils (%) (Auto) 4.4H, Basophils (%) (Auto) 1.1H, Neutrophils # (Auto) 2.5, Lymphocytes # (Auto) 0.4L, Monocytes # (Auto) 0.5, Eosinophils # (Auto) 0.2, Basophils # (Auto) 0.0, Nucleated Red Blood Cells % (auto) 0.0, Anion Gap 3L, Glomerular Filtration Rate 51.3, Calcium Level 8.8 06/08/20 11:37: Bedside Glucose (Misc Panel) 190H 06/08/20 16:23: Bedside Glucose (Misc Panel) 164H CBC/BMP Laboratory Tests 06/08/20 05:19 Microbiology Microbiology 06/06/20 Acid Fast Stain, Received Pending 06/06/20 Mycobacterial Culture, Received Pending 06/06/20 Fungal Smear, Received Pending 06/06/20 Fungal Culture, Received Pending 06/06/20 Gram Stain - Final, Complete 06/06/20 Body Fluid Culture - Final, Complete 06/06/20 Anaerobic Culture - Final, Complete SOHA BUI MD Jun 08, 2020 19:19
[2020-06-08 20:00] VITALS: BP 112/63
[2020-06-08] MEDS: ENOXAPARIN 40MG/0.4ML SYRINGE (J1650 PER 10MG) SC SCH (21:34)
[2020-06-09] VITALS: BP 144/70
[2020-06-09] MEDS: LEVALBUTEROL 1.25 MG/0.5 ML CONCENTRATE NEB NEB SCH ×3 (01:59→13:49)
[2020-06-09 04:00] VITALS: BP 125/64
[2020-06-09] MEDS: KETOROLAC 30 MG/ML 1ML VIAL IV SCH ×2 (04:00→11:00)
[2020-06-09 05:47] LABS: BASO % 1.3 % (0.0-1.0); EOS # 0.2 10^3/uL (0.0-0.5); EOS % 5.6 % (0.0-3.0); HEMATOCRIT 34.8 % (36.0-47.0); LYMPH # 0.4 10^3/uL (1.5-5.0); LYMPH % 11.6 % (24.0-44.0); MEAN CORPUSCULAR HEMOGLOBIN 24.8 pg (27.0-33.0); MEAN CORPUSCULAR HGB CONC 28.7 g/dl (32.0-36.5); MEAN CORPUSCULAR VOLUME 86.4 fl (80.0-96.0); MONO # 0.4 10^3/uL (0.0-0.8); MONO % 11.6 % (0.0-5.0); NEUTROPHILS # 2.1 10^3/uL (1.5-8.5); NEUTROPHILS % 68.9 % (36.0-66.0); PLATELET COUNT, AUTOMATED 134 10^3/uL (150-450); RED BLOOD COUNT 4.03 10^6/uL (4.00-5.40)
[2020-06-09 06:14] LABS: BLOOD UREA NITROGEN 18 MG/DL (7-18); CALCIUM LEVEL 8.7 MG/DL (8.8-10.2); CARBON DIOXIDE LEVEL 31 MEQ/L (21-32); CHLORIDE LEVEL 106 MEQ/L (98-107); CREATININE FOR GFR 0.72 MG/DL (0.55-1.30); GLOMERULAR FILTRATION RATE > 60.0 (>45); GLUCOSE, FASTING 142 MG/DL (70-100); POTASSIUM SERUM 3.6 MEQ/L (3.5-5.1); SODIUM LEVEL 140 MEQ/L (136-145)
[2020-06-09 07:48] VITALS: BP 118/70
[2020-06-09] MEDS: DOCUSATE SODIUM 100MG CAPSULE PO SCH (08:31)
[2020-06-09] MEDS: HumaLOG INSULIN (NovoLOG) PER UNIT SC SCH ×2 (08:31→12:27)
[2020-06-09] MEDS: PANTOPRAZOLE 40MG TAB (PROTONIX) PO SCH (08:31)
--- NOTE | 2020-06-09 08:42 | RADENCPD ---
Date/Time of Encounter Date of Encounter: Jun 09, 2020 Time of Encounter: 08:40 Encounter Note patient's impending discharge and plan for pleurex drainage today. Will resume RT as an outpatient tomorrow. We will contact the patient to arrange. PATEL RUSSO MD Jun 09, 2020 08:42
--- NOTE | 2020-06-09 08:58 | REP ---
INDICATION: pleural efffuions. COMPARISON: Comparison chest x-ray June 08, 2020. TECHNIQUE: Two views.. FINDINGS: There is blunting of the pleural angles bilaterally consistent with bilateral effusions, right a little larger than left. There is a right-sided PleurX catheter noted in place along the diaphragm posteriorly. This is unchanged. There is increased parenchymal opacity in the right perihilar and right base region with the large density unchanged. There is some right apical pleural thickening unchanged. No new infiltrate is noted on the left. IMPRESSION: No significant change from the comparison study of June 08, 2020. Right base PleurX catheter. Bilateral pleural effusions. Large right perihilar and right base parenchymal opacity with some air bronchograms.. <Electronically signed by Shorty Okeefe > 06/09/20 1004
[2020-06-09 11:44] VITALS: BP 106/74
--- NOTE | 2020-06-09 11:45 | DS.PDOC ---
Discharge Summary General Date of Admission Jun 06, 2020 at 16:09 Date of Discharge 06/09/2020 Discharge Summary PROCEDURES PERFORMED DURING STAY: [None]. ADMITTING DIAGNOSES: 1. shortness of breath DISCHARGE DIAGNOSES: 1. Bilateral pleural effusions 2. 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 Patient returns with recurrent pleural effusion. Seen by thoracic surgery. No ne w pericardial effusion. Ok by Dr Tran to go home with plurix drain and followup OP. #Pericardial effusion: Pericardial window was placed on 05/13. Dr. Tran on prior admission. Discussed with Dr. Tran. Obtain stat echo - no evidence for pericardial effusion per Dr. Sheehan. Thoracic Surgery consultation # Bilateral pleural effusions: R>L.Can be DC'd with home health to assist with drainage once every 2 days plurex drain. 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 In September 2019. Patient has been followed by oncology and radiation oncology. Final staging ongoing, however, CT abdomen and pelvis with IV contrast showing significant intra-abdominal lymphadenopathy consistent with metastatic disease. Patient followed by Dr. Regalado with the [facility]. Patient, will follow up with Dr. Regalado as well as radiation oncology for a PET/CT to complete staging. #DM2: Insulin sliding scale. FSBS AC and HS. Consistent carbohydrate diet. #hypokalemia: Replaced DISCHARGE MEDICATIONS: Please see below. ALLERGIES: Please see below. PHYSICAL EXAMINATION ON DISCHARGE: General: NAD, comfortable HEENT: PERRLA, EOMI, sclerae clear Neck: supple, normal ROM, no JVD Respiratory: Decreased lung sounds bilaterally but otherwise clear, no use accessory muscles. Chest: Right Pleurx catheter in place CVS: RRR, normal S1, S2, no murmurs Abdo: soft, no masses, BS+, no rebound tenderness Extremities: no edema, pulses 2+ MSK: no joint deformities, normal ROM Neuro: no focal deficits Psych: calm, cooperative, AAO x 3 LABORATORY DATA: Please see below. IMAGING: CXR (06/08/20) FINDINGS: Stable chest tube at the right base. Bilateral lower lobe opacities (right greater than left) consistent with pleural effusions and airspace disease similar to prior examination. IMPRESSION: Bilateral pleural effusions and airspace disease (right greater than left) sim ilar to prior examination. LLE venous duplex:(06/06/20): IMPRESSION: No evidence for deep venous thrombosis. Bose's cyst CT Abdo/Pelvis w IV contrast (06/06/20): IMPRESSION: 1. Small amount of right upper quadrant and pelvic ascites along with considerable adenopathy consistent with malignancy. 2. Changes suggesting cirrhosis and portal hypertension. 3. Relatively simple appearing right renal cysts. CTA Chest (06/06/20): IMPRESSION: 1. No evidence for pulmonary embolus. 2. Mass/consolidation extending from the mediastinum into the right lung along with adenopathy, bilateral pleural effusions, bibasilar atelectasis and pericardial fluid most compatible with malignancy. CXR (06/06/20): IMPRESSION: Bilateral pleuroparenchymal opacities (right greater than left) suggesting effusions and underlying airspace disease. Echocardiogram: 06/06/20 INDICATION: Rule out pericardial effusion. Status post pericardiotomy and drainage. MEASUREMENTS: 2D Measurements: RV 4.0 cm LV 3.8 cm Septum 1.0 cm Posterior wall 1.0 cm Aortic Root 2.9 cm LA 3.6 cm LVEF 65% Doppler Measurements: AV 1.33 m/s LVOT 0.95 m/s MV-E 108, A 55, E/A ratio 2.0 Early mitral deceleration time 250 msec E prime medial 6.6, A prime medial 10, E prime lateral 7.8 Average E/E prime ratio 15/PCWP 20.5 mmHg PV 1.0 m/s Pulmonary artery acceleration time 103 msec RVSP 48 mmHg IVC 1.9 cm COMMENTS: Normal sinus rhythm without intraventricular conduction disturbance. M-mode and two-dimensional echocardiography was performed with pulse, continuouswave, color flow, and tissue Doppler studies. Normal left ventricular size and wall thickness with obvious systolic G-shap edseptum in keeping with right ventricular pressure overload. Other left ventricular wagner move normally. Global left ventricular systolic function was intact. Left atrial size upper limits of normal with grade 2 left ventricular (LV) diastolic dysfunction and at least mildly increased estimated mean left atrial pressure. Right heart chamber sizes were upper limits of normal to slightly increased. Right ventricular free wall motion appeared to be normal and estimated pulmonaryarterial pressure was at least moderately increased. Inferior vena cava (IVC) size was upper limits of normal with adequate respiratory collapse against an elevated central venous pressure at this time. Normal aortic root size. Normal appearing and functioning aortic valve. Mild degenerative changes of the mitral valve apparatus without a functional abnormality. Normal appearing tricuspid valve with some mild tricuspid insufficiency. No apparent intracardiac mass. There was a small posterior pericardial effusion measuring 0.5 cm significantly less than that recorded 05/12/2020. No signs of cardiac compression. PROGNOSIS: fair ACTIVITY: [As tolerated]. DIET: diabetic diet DISPOSITION: Home DISCHARGE INSTRUCTIONS: Please follow up with your primary care physician within 1 week from discharge. If you do not have one, please follow up with us to schedule an appointment. Please keep all of your follow up appointments. Please call central to book your appointments with hospital specialists. Please take all your medications as prescribed. Please call/come to Clinic or go to the Emergency Department if - Temp >101, intractable Nausea/Vomiting, Diarrhea, Mouth sores, Headaches, Altered mental status, Seizures, sudden onset of swelling, bleeding, shortness of breath or chest pain. DISCHARGE CONDITION: [Stable]. TIME SPENT ON DISCHARGE: 40 minutes. Vital Signs/I&Os Vital Signs Date Time Temp Pulse Resp B/P (MAP) Pulse Ox O2 Delivery O2 Flow Rate FiO2 06/09/20 08:00 2.0 06/09/20 07:48 99.6 104 18 118/70 (86) 99 Nasal Cannula I&O- Last 24 Hours up to 6 AM 06/09/20 06:00 Intake Total 780 ml Output Total 500 ml Balance 280 ml Laboratory Data Labs 24H Laboratory Tests 2 06/08/20 11:37: Bedside Glucose (Misc Panel) 190H 06/08/20 16:23: Bedside Glucose (Misc Panel) 164H 06/08/20 20:17: Bedside Glucose (Misc Panel) 205H 06/09/20 05:16: Immature Granulocyte % (Auto) 1.0, Neutrophils (%) (Auto) 68.9H, Lymphocytes (%) (Auto) 11.6L, Monocytes (%) (Auto) 11.6H, Eosinophils (%) (Auto) 5.6H, Basophils (%) (Auto) 1.3H, Neutrophils # (Auto) 2.1, Lymphocytes # (Auto) 0.4L, Monocytes # (Auto) 0.4, Eosinophils # (Auto) 0.2, Basophils # (Auto) 0.0, Nucleated Red Blood Cells % (auto) 0.0, Anion Gap 3L, Glomerular Filtration Rate > 60.0, Calcium Level 8.7L CBC/BMP Laboratory Tests 06/09/20 05:16 FSBS Laboratory Tests Test 06/08/20 11:37 06/08/20 16:23 06/08/20 20:17 Range/Units Bedside Glucose (Misc Panel) 190 164 205 80-115 MG/DL Microbiology Microbiology 06/06/20 Acid Fast Stain, Received Pending 06/06/20 Mycobacterial Culture, Received Pending 06/06/20 Fungal Smear, Received Pending 06/06/20 Fungal Culture, Received Pending 06/06/20 Gram Stain - Final, Complete 06/06/20 Body Fluid Culture - Final, Complete 06/06/20 Anaerobic Culture - Final, Complete Discharge Medications Scheduled Empagliflozin (Jardiance) 10 Mg Tablet, 10 MG PO DAILY, (Reported) Insulin Glargine,Hum.rec.anlog (Basaglar Kwikpen U-100) 100 Unit/1 Ml Insuln.pen, 33 UNIT SC QHS, (Reported) Metoprolol Succinate (Metoprolol Succinate) 50 Mg Tab.er.24h, 50 MG PO DAILY, (Reported) Pantoprazole Sodium (Pantoprazole Sodium) 40 Mg Tablet.dr, 40 MG PO DAILY, (Reported) Semaglutide (Ozempic) 0.25 Mg/0.2 Ml Pen.injctr, 0.5 MG SC QWEEK, (Reported) MONDAY Vilazodone HCl (Viibryd) 40 Mg Tablet, 40 MG PO DAILY, (Reported) Scheduled PRN Albuterol Sulfate (Albuterol Sulfate Hfa) 8.5 Gm Hfa.aer.ad, 2 PUFFS INH Q4H PRN for SOB/WHEEZING, (Reported) Levalbuterol HCl (Levalbuterol HCl) 0.63 Mg/3 Ml Vial.neb, 0.63 MG NEB Q6H PRN for SHORTNESS OF BREATH, (Reported) Allergies Coded Allergies: citalopram (Verified Adverse Reaction, Severe, jittery, 05/12/20) metformin (Verified Adverse Reaction, Severe, nausea, vomiting, 05/12/20) erythromycin base (Verified Adverse Reaction, Intermediate, vomiting, ) azithromycin (Verified Adverse Reaction, Unknown, vomiting, 05/12/20) mirtazapine (Verified Adverse Reaction, Unknown, insomnia, 05/12/20) GIAN FRDEERICK MD Jun 09, 2020 11:45
[2020-06-09] MEDS ORDERED: ACET1TAB55 PO (11:48)
--- NOTE | 2020-06-09 13:57 | IPN ---
PROGRESS NOTE DATE: 06/09/2020 SUBJECTIVE: I did not see Mrs. Morejon yesterday as she was scheduled to be discharged. However, they could not arrange home health visitation and therefore she is going to be discharged today. She will be discharged to radiation therapy today for her radiation treatment and her will pick her up after her radiation treatment. She was not drained yesterday. We will drain her today. The day before we drained her for 225 mL from the PleurX catheter. PHYSICAL EXAMINATION: Her vital signs show a T-max of 99.6 with a heart rate that ranges between 103-104 in sinus rhythm, respiratory rate of 18-20 without the use of accessory muscles. She is 96-99% saturated on 2 liters nasal cannula. She has blood pressures ranging between 118/78 to 144/70. Her intake and output the past 24 hours has been recorded as 780 in and 700 out for near equality. Her weight is pending. On physical examination she has inspiratory rales particularly in the right lower base. Percussion note however is full through the diaphragm. Cardiac exam is without murmurs, clicks, gallops, or rubs. I cannot feel her PMI. S1, S2 are normal. Abdomen is soft, nontender. Bowel sounds are positive. There is no hepatomegaly that I can appreciate through her obesity and there is no CVA tenderness. Extremities show no pretibial edema, no calf tenderness, no differential swelling of the upper extremities. Skin is warm and dry and perfused without cyanosis or mottling including that of nailbeds and knees. Neck is supple. There is no jugular venous distention, no subcutaneous emphysema. Trachea is midline. Mouth shows the mucous membranes to be pink and moist. Lips and gums show no lesions, no thrush. Eyes show the pupils to be equal and reactive. Extraocular movements are intact. Sclerae are nonicteric. Neuro shows II-XII intact with normal gross motor, gross sensation intact. Gait is not tested. Psychiatric shows her to be awake and alert and oriented times three with appropriate mood and affect and conversational. Her chest x-ray today shows some volume loss with a slight shift of the trachea to the right side. This volume loss is on the right side. She has a density consistent with her large tumor mass. There is minimal costophrenic angle blunting, however, on the right side. The left side also shows some minimal costophrenic angle blunting. The PleurX catheter is in good place. Her white count today is 3.0 with a hemoglobin and hematocrit of 10.0 and 34.8, essentially unchanged from yesterday with a platelet count of 134. Differential shows 68% neutrophils, 11% lymphocytes, 11% monocytes. There were no immature forms or toxic granulations. Her electrolytes are normal with a BUN and creatinine of 18 and 0.72, a glucose of 142, and calcium 8.7. I discussed her pleural fluid in my last note being slightly exudative and lymphocytic. The cytology is positive for malignancy. Cell block is still pending. IMPRESSION: 1. Adenocarcinoma of lung stage IV with metastatic spread to the pericardium and pericardial fluid along with the pleura and infradiaphragmatic lymphadenopathy. 2. Hypertension. 3. Prior sarcoidosis. 4. Diabetes. 5. Gastroesophageal reflux disease. 6. History of pulmonary embolism. PLAN AND DISCUSSION: Evidently home health nursing has been arranged and she is to be discharged today. I will see her back in the office in one week with a chest x-ray and followup. She is to drain herself every other day. We are sending her home with a pack of four bottles. I have completed the paperwork to have her bottles delivered to her home. I am hoping that with the institution of systemic therapy along with radiation therapy that the pleural effusion will eventually resolve itself and we will be able to remove the catheter.
[2020-06-10] MEDS ORDERED: ZOFR4TAB16 PO (15:39)
== END 2020-06-09 15:04 | disposition home health service (06) | DRG 181 ==
LOC: M ED 11:04 → M ED INP 16:09 → ENRESERV 16:23 → M PCU 17:07
PROVIDERS: ADMIT Family Medicine; ATTEND Family Medicine
PROC: 0W993ZZ Drainage of Right Pleural Cavity, Percutaneous Approach (ICD-10-PCS; principal; 2020-06-06)
DX: C34.2 Malignant neoplasm of middle lobe, bronchus or lung (principal); J91.0 Malignant pleural effusion; C34.11 Malignant neoplasm of upper lobe, right bronchus or lung; C77.2 Secondary and unspecified malignant neoplasm of intra-abdominal lymph nodes; I10 Essential (primary) hypertension; K21.9 Gastro-esophageal reflux disease without esophagitis; D86.9 Sarcoidosis, unspecified; L40.8 Other psoriasis; E11.9 Type 2 diabetes mellitus without complications; Z79.4 Long term (current) use of insulin; Z79.899 Other long term (current) drug therapy; Z88.8 Allergy status to other drugs, medicaments and biological substances; E78.5 Hyperlipidemia, unspecified; Z86.711 Personal history of pulmonary embolism; Z87.891 Personal history of nicotine dependence; E66.01 Morbid (severe) obesity due to excess calories

== ENCOUNTER → 2020-06-18 | Outpatient (CLI) | payer OTHER ==
[~2020-06-18] MED LIST changes: +ACET1TAB55 PO; +ATIV1TAB10 PO; +BACI1CAP PO; +CEFD1CAP8 PO; +DOXY-350 PO; +LEVA12INH INH; +LIDOCAINE 1% MDV 20ML VIAL As Ordered ONE; +MIDAZOLAM INJ 2MG/2ML VIAL (J2250 PER 1MG) As Ordered ONE; +OXYC1TAB23 PO; +PRED10TA2 PO; +TOPR50TA PO; +TRAZ-252 PO; +ZOFR4TAB16 PO; +ceFAZolin 1GM VIAL (J0690 PER 500MG) As Ordered ONE; +diphenhydrAMINE 50MG/ML VIAL (J1200) As Ordered ONE; +fentaNYL 100 MCG/2 ML INJECTION (J3010) As Ordered ONE
--- NOTE | 2020-06-18 12:48 | IRHP ---
[facility] IR Pre-Procedure H & P General Date of Service: Jun 18, 2020 Procedure: Same Day Surgery Interval History and Physical I have seen the patient and reviewed last H & P performed within 30 days. There is no significant interval change. History of Present Illness Chief Complaint The patient is a 64-year-old female admitted with a reason for visit of Lung Ca. PRE-PROCEDURE DIAGNOSIS:lung cancer HEART: normal rate. LUNGS: normal breathing at rest. ASA Classification ASA Classification: III-Severe systemic dis. Mallampati Score: II NPO: Yes Problems with prior sedation: No Obstructive Sleep Apnea: No Plan moderate sedation Allergies Coded Allergies: citalopram (Verified Adverse Reaction, Severe, jittery, 05/12/20) metformin (Verified Adverse Reaction, Severe, nausea, vomiting, 05/12/20) erythromycin base (Verified Adverse Reaction, Intermediate, vomiting, 04/20/20) azithromycin (Verified Adverse Reaction, Unknown, vomiting, 05/12/20) mirtazapine (Verified Adverse Reaction, Unknown, insomnia, 05/12/20) Home Medications Scheduled Empagliflozin (Jardiance), 10 MG PO DAILY, (Reported) Insulin Glargine,Hum.rec.anlog (Basaglar Kwikpen U-100), 33 UNIT SC QHS, (Reported) Metoprolol Succinate (Toprol Xl), 1 TAB PO DAILY, (Reported) Pantoprazole Sodium (Pantoprazole Sodium), 1 TAB PO DAILY, (Reported) Semaglutide (Ozempic), 0.5 MG SC QWEEK, (Reported) Vilazodone HCl (Viibryd), 40 MG PO DAILY, (Reported) Scheduled PRN Acetaminophen (Acetaminophen), 650 MG PO Q4H PRN for Pain Albuterol Sulfate (Albuterol Sulfate Hfa), 2 PUFFS INH Q4H PRN for SOB/WHEEZING, (Reported) Levalbuterol HCl (Levalbuterol HCl), 0.63 MG NEB Q6H PRN for SHORTNESS OF BREATH, (Reported) Ondansetron HCl (Zofran), 1 TAB PO TID PRN for NAUSEA Oxycodone HCl/Acetaminophen (Oxycodone-Acetaminophen 5-325), 1 TAB PO Q4-6HP PRN for ANXIETY VS, I&O, 24H, Fishbone Vital Signs/I&O Vital Signs Date Time Temp Pulse Resp B/P (MAP) Pulse Ox O2 Delivery O2 Flow Rate FiO2 06/18/20 12:40 98 20 100 Nasal Cannula 2 06/18/20 12:15 98.4 Laboratory Data 24H LABS Laboratory Tests 2 06/18/20 12:36: Bedside Glucose (Misc Panel) 86 OSBALDO ENCARNACION MD Jun 18, 2020 12:48
[2020-06-18 15:15] VITALS: BP 127/77
--- NOTE | 2020-06-19 10:22 | POST-OPPD ---
Postoperative Procedure Note Date Of Procedure: Jun 18, 2020 Time Of Procedure: 16:00 IR ultrasound and fluoroscopy guided port placement IR Ultrasound of the neck. IR Moderate sedation. Clinical indication: Lung cancer. Physician: Dr. Tracy. Procedure: The patient was advised of the benefits, risks, and alternatives of the procedure and informed consent was obtained. A time-out was performed with verification of the patient's name, MRN, site of procedure and type of procedure to be performed. The patient was positioned in the supine position on the angiographic table. The site was prepped and draped in the usual sterile fashion. Moderate sedation was performed by the physician including the presence of an independent trained RN who assisted and monitored the patient's level of consciousness and physiologic status. Following the administration of fentanyl and Versed , the physician spent 45 minutes of continuous face to face time with the patient. Ultrasound of the neck reveals a patent and compressible right internal jugular vein. A automotive mechanical engineer radiograph reveals right pleural effusion. Partially imaged Pleurx catheter. The neck and anterior chest wall were anesthetized with lidocaine. The right internal jugular vein was accessed using a microintroducer needle under ultrasound guidance, via a lateral approach. An 018 wire was advanced into the superior vena cava, the needle was removed and a microsheath was placed. An Amp latz wire was then passed into the inferior vena cava. An incision at the internal jugular vein access site and anterior chest wall were made using a scalpel. An incision was made at the anterior chest wall. A small pocket was created using a combination of blunt and sharp dissection. A tunneling device was then used to pass the catheter from the pocket to the neck puncture site. An 8- [place]an Angio [employer]ox Smart power port was then positioned in the pocket. The catheter was then measured and cut. The introducer sheath was exchanged for a peel-away sheath. The catheter was passed through the peel-away sheath into the internal jugular vein and the peel- away sheath was removed. The port tip was positioned at the cavoatrial junction. The port was then accessed with a Granados needle. The port flushes and aspirates well. The puncture site in the neck was closed. The chest wall incision was then closed with 2-0 Vicryl and 4-0 Monocryl. Glue and Steri- Strips were applied. A sterile dressing was then applied. The patient tolerated the procedure well and was returned to the PRU in stable condition. Estimated blood loss: <5 ml. Complications: None. Conclusion: 1. Successful placement of an 8-[place] Angio dynamics Smart power port via the right internal jugular vein. The port is ready for immediate use. 2. Patient to follow up in IR clinic in 2 weeks. Thank you for this referral. OSBALDO TRACY MD Jun 19, 2020 10:22
== END ==
LOC: M IRPRO 11:36
PROVIDERS: ATTEND Specialist
DX: C34.91 Malignant neoplasm of unspecified part of right bronchus or lung (principal)
CPT/HCPCS: 36561; 99152; 99153; C1769; C1788; C1894; J0690; J1200; J1642; J1644; J2250; J3010

== ENCOUNTER → 2020-06-29 | Outpatient (CLI) | payer OTHER, MEDICARE ==
[~2020-06-29] MED LIST changes: -LIDOCAINE 1% MDV 20ML VIAL As Ordered ONE; -MIDAZOLAM INJ 2MG/2ML VIAL (J2250 PER 1MG) As Ordered ONE; -ceFAZolin 1GM VIAL (J0690 PER 500MG) As Ordered ONE; -diphenhydrAMINE 50MG/ML VIAL (J1200) As Ordered ONE; -fentaNYL 100 MCG/2 ML INJECTION (J3010) As Ordered ONE
--- NOTE | 2020-06-29 09:15 | REPPI ---
INDICATION: C34.11 J91.0 MALIGNANT NEOPLASM UPPER LOBE, PLEURAL EFFUSION COMPARISON: 06/09/2020 TECHNIQUE: PA and lateral. FINDINGS: Moderate to large bilateral pleural effusions and bibasilar opacities are again noted and similar to prior examination. Visualized portions of the mediastinum and cardiac silhouette are stable. [id number] is identified with tip in the SVC. No pneumothorax. Skeletal structures are intact. There appears to be a chest tube running along the right posterior lung base. IMPRESSION: Moderate to large bilateral pleural effusions and bibasilar opacities (right greater than left) similar to prior examination. Left basilar chest tube identified. <Electronically signed by Tomi Tejeda > 06/29/20 [id number]
== END ==
LOC: M PLAIMG 08:53
PROVIDERS: ATTEND Thoracic Surgery (Cardiothoracic Vascular Surgery)
DX: C34.11 Malignant neoplasm of upper lobe, right bronchus or lung (principal); J91.0 Malignant pleural effusion; Z97.8 Presence of other specified devices

== ENCOUNTER 2020-06-30 09:18 | Inpatient (IN) | payer MEDICARE, OTHER ==
[~2020-06-30] VITALS: Ht 152.4 cm; Wt 84.3 kg
[~2020-06-30 09:18] MED LIST changes: -BACI1CAP PO; -CEFD1CAP8 PO; -DOXY-350 PO; -LEVA12INH INH; -PRED10TA2 PO; -TRAZ-252 PO
[2020-06-30] MEDS ORDERED: TRAZ-252 PO (09:51)
[2020-06-30] MEDS ORDERED: methylPREDNISolone 40MG 1ML VIAL IV ONE (10:15)
[2020-06-30 11:01] LABS: BASO # 0.1 10^3/uL (0.0-0.2); BASO % 1.3 % (0.0-1.0); EOS # 0.1 10^3/uL (0.0-0.5); EOS % 3.6 % (0.0-3.0); HEMATOCRIT 38.9 % (36.0-47.0); HEMOGLOBIN 11.4 g/dl (12.0-15.5); LYMPH # 0.3 10^3/uL (1.5-5.0); LYMPH % 7.2 % (24.0-44.0); MEAN CORPUSCULAR HEMOGLOBIN 25.9 pg (27.0-33.0); MEAN CORPUSCULAR HGB CONC 29.3 g/dl (32.0-36.5); MEAN CORPUSCULAR VOLUME 88.2 fl (80.0-96.0); MONO # 0.4 10^3/uL (0.0-0.8); NEUTROPHILS # 3.1 10^3/uL (1.5-8.5); NEUTROPHILS % 78.1 % (36.0-66.0); PLATELET COUNT, AUTOMATED 145 10^3/uL (150-450); RED BLOOD COUNT 4.41 10^6/uL (4.00-5.40); WHITE BLOOD COUNT 3.9 10^3/uL (4.0-10.0)
[2020-06-30 11:15] LABS: INR 0.93; PROTHROMBIN TIME 12.7 SECONDS (12.5-14.3)
--- NOTE | 2020-06-30 11:20 | REP ---
INDICATION: DYSPNEA/COUGH COMPARISON: 06/29/2020 TECHNIQUE: Portable AP view of the chest FINDINGS: Evaluation is limited by underpenetration, and poor inspiratory effort. Chest tube at the right base is again identified. Moderate bilateral pleural effusions and bibasilar opacities suggesting atelectasis and consolidations are again noted and essentially unchanged. A very small right apical pneumothorax cannot definitively be excluded. IMPRESSION: Moderate bilateral pleural effusions and bibasilar infiltrates essentially unchanged. A very small right apical pneumothorax cannot definitively be excluded. <Electronically signed by Tomi Tjeeda > 06/30/20 1118
[2020-06-30] MEDS ORDERED: ATIV1TAB10 PO (11:23)
[2020-06-30 11:39] LABS: ALT/SGPT 14 U/L (12-78); BILIRUBIN,DIRECT 0.4 MG/DL (0.0-0.2); BILIRUBIN,TOTAL 1.3 MG/DL (0.2-1.0); BLOOD UREA NITROGEN 12 MG/DL (7-18); CALCIUM LEVEL 8.9 MG/DL (8.8-10.2); CARBON DIOXIDE LEVEL 36 MEQ/L (21-32); CHLORIDE LEVEL 98 MEQ/L (98-107); CREATININE FOR GFR 0.51 MG/DL (0.55-1.30); GLOMERULAR FILTRATION RATE > 60.0 (>45); GLUCOSE, FASTING 69 MG/DL (70-100); MAGNESIUM LEVEL 1.9 MG/DL (1.8-2.4); NT-PRO BNP 373 PG/ML (<125); POTASSIUM SERUM 2.9 MEQ/L (3.5-5.1); RSV AMPLIFICATION NEGATIVE (NEGATIVE); SODIUM LEVEL 141 MEQ/L (136-145); THYROID STIMULATING HORMONE 0.342 uIU/ML (0.358-3.740); THYROXINE (T4) 13.5 UG/DL (4.5-12.0); TOTAL PROTEIN 6.4 GM/DL (6.4-8.2)
[2020-06-30] MEDS: COMBIVENT RESPIMAT 100-20MCG INHALER 4GM INH SCH ×3 (11:55→12:40)
[2020-06-30] MEDS ORDERED: ISOVUE-370 76% 100ML VIAL As Ordered ONE (12:30)
[2020-06-30] MEDS ORDERED: POTASSIUM CHLORIDE 10 MEQ SR TABLET PO ONE ×2 (12:30→15:00)
--- NOTE | 2020-06-30 13:38 | REP ---
INDICATION: sob COMPARISON: 06/06/2020 TECHNIQUE: Axial contrast enhanced images from the thoracic inlet to the upper abdomen using pulmonary embolus technique with multiplanar re-formations. 75 ml Isovue 370 intravenous contrast material administered without complication. This CT examination was performed using the following dose reduction techniques: Automated exposure control, adjustment of mA and/or kv according to the patient's size, and use of iterative reconstruction technique. FINDINGS: No obvious pulmonary embolus identified. Atherosclerotic changes to the thoracic aorta and coronary arteries noted along with small pericardial effusion. Large area of consolidation extending from the right hilum/mediastinum as well as significant infiltrates involving the basilar left upper lobe, right upper lobe, right middle lobe and right lower lobe noted with diffusely increased interstitial markings, moderate left and small right pleural effusions and significant reactive adenopathy again noted and similar to prior examination. Chest tube at the right base is appreciated and the right pleural effusion is slightly decreased when compared to prior examination. Calcified lymph nodes are also noted and suggest prior granulomatous disease. Xelvtu-K-Veku extends into the SVC. Adenopathy is also identified extending along the posterior mediastinum and esophagus to the visualized upper abdomen with evidence for ascites. Adrenal glands are nonspecific in appearance. Surrounding musculoskeletal structures are grossly intact. IMPRESSION: 1. No evidence for pulmonary embolus. 2. Extensive areas of consolidation/airspace disease and interstitial infiltrates with pleural effusions and adenopathy similar to prior examination. 3. Chest tube at the right base with minimally decreased right pleural effusion as compared to prior examination. 4. Adenopathy extends along the esophagus into the upper abdomen with evidence for abdominal ascites. <Electronically signed by Tomi Tejeda > 06/30/20 [id number]
[2020-06-30] MEDS ORDERED: PIPERACILLIN/TAZOBACTAM SOD 4.5 GM in D5W MINI-BAG PLUS 50 ML IV ONE (14:30)
[2020-06-30] MEDS ORDERED: DEXTROSE 50% 50 ML SYRINGE IV PRN (14:45)
[2020-06-30] MEDS ORDERED: GLUCOSE 4GM CHEW TABLET PO PRN (14:45)
[2020-06-30] MEDS ORDERED: LORazepam 0.5 MG TAB PO PRN (14:45)
[2020-06-30] MEDS ORDERED: GLUCAGON INJ 1MG VIAL SC PRN (14:45)
[2020-06-30] MEDS ORDERED: ALBUTEROL 90 MCG/ACT 8GM HFA INHALER INH PRN (14:45)
[2020-06-30] MEDS ORDERED: MAG SULF 1GM/100ML (MAG RUN) 1 GM in IV 1 EA IV ONE (15:00)
--- NOTE | 2020-06-30 15:14 | HPEPDOC ---
[facility] Medical History & Physical Date of Admission Jun 30, 2020 Date of Service: Jun 30, 2020 History and Physical CHIEF COMPLAINT: shortness of breath HISTORY OF PRESENT ILLNESS: 64-year-old female with a history of hypertension, sarcoidosis, type 2 diabetes, metastatic adenocarcinoma of the right lung with malignant pleural effusion. PD L1 25% positive, ROSS1 negative, BRAF positive and ALK-negative, s/p radiation, on keytruda managed by Dr. Ureña, malignant pericardial effusion and bilateral malignant pleural effusions s/p pericardial window and chest tube management by Thoracic surgeon Dr. Tran presents w tac hypnea and dyspnea on exertion. Patient was started on keytruda last and she was okay for 2 days and she started to feel some anxiety, feeling uncomfortable and shakiness. She thought that her keytruda was interacting with her other medications and saw her regular doctor to see if there is a drug interaction. , She complained of some insomnia and was given Ativan but 'I was scared to ." Because she started feeling more and she has an nervous and shaky. Patient waited another 2 days before she saw her primary care physician again who then started her on another medication. . She admits to taking nebulizer albuterol at home about 3 times a day and has noted worsening dyspnea on exertion after walking 10 feet, prompting her to come to the ER after calling her oncologist wanted her to be evaluated. In the ER, she was tachycardic, 112- 118. CT chest showed no pulmonary embolism but persistent bilateral pleural effusions with increased consolidation in the left upper lobe and right middle and upper lobe. Patient was given intravenous Zosyn for possible postobstructive pneumonia despite not having a fever or chills. She's had no cough, chest pain, pressure, tightness. EKG had no acute ischemic changes. Hospitalist was asked to admit her for worsening shortness of breath from the malignant bilateral pleural effusions and possible pneumonia and COPD with wheezing on exam. PAST MEDICAL HISTORY: 1. Sarcoidosis 2. HTN 3. IDDM 4. History of pulmonary embolism 5. GERD 6. Psoriasis 7. 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 PD L1 25% positive, ROSS1 negative, BRAF positive and ALK-negative 8. malignant Pericardial effusion 9. portal hypertension 10. cirrhosis on imaging CT abd/pelvis was ordered. 11. postobstructive pneumonia RML/RLL 12. malignant b/l pleural effusions s/p chest tube. PAST SURGICAL HISTORY: 1. Hysterectomy 2. Hernia repair 3. right chest tube and pericardial window for malignant pericardial effusion 4. svc Jdbxsr-U-Nogw SOCIAL HISTORY: Former smoker, [id number] history, quit 30 years ago FAMILY HISTORY: Mother had congestive heart failure Father had emphysema Sr. had colon cancer, now ALLERGIES: Please see below. REVIEW OF SYSTEMS: 10 point ROS negative aside from positive findings on HPI. HOME MEDICATIONS: Please see below. PHYSICAL EXAMINATION: VITAL SIGNS: please see below General: no conversational dyspnea, anicteric, no jaundice, no pallor HEENT: PERRLA, no JVD, no thyromegaly, moist mm, no cervical LAD, EOMI, sclerae clear Lungs: Diminished breath sounds, bilateral wheezing, prolonged expiration, crackles, right middle and lower lobe, left upper lobe Heart: s1S2 RRR Abd: soft, nontender nondistended no masses, no hepatosplenomegaly, BS+, no rebound tenderness Extremities: Bilateral 1+ edema in the lower extremities, pulses 2+ 0 LABORATORY DATA: See below. IMAGING: LLE venous duplex:(06/06/20): IMPRESSION: No evidence for deep venous thrombosis. Bose's cyst CT Abdo/Pelvis w IV contrast (06/06/20): IMPRESSION: 1. Small amount of right upper quadrant and pelvic ascites along with considerable adenopathy consistent with malignancy. 2. Changes suggesting cirrhosis and portal hypertension. 3. Relatively simple appearing right renal cysts. CT chest 06/30/20 COMPARISON: 06/06/2020 TECHNIQUE: Axial contrast enhanced images from the thoracic inlet to the upper abdomen using pulmonary embolus technique with multiplanar re-formations. 75 ml Isovue 370 intravenous contrast material administered without complication. This CT examination was performed using the following dose reduction techniques: Automated exposure control, adjustment of mA and/or kv according to the patient's size, and use of iterative reconstruction technique. FINDINGS: No obvious pulmonary embolus identified. Atherosclerotic changes to the thoracic aorta and coronary arteries noted along with small pericardial effusion. Large area of consolidation extending from the right hilum/mediastinum as well as significant infiltrates involving the basilar left upper lobe, right upper lobe, right middle lobe and right lower lobe noted with diffusely increased interstitial markings, moderate left and small right pleural effusions and significant reactive adenopathy again noted and similar to prior examination. Chest tube at the right base is appreciated and the right pleural effusion is slightly decreased when compared to prior examination. Calcified lymph nodes are also noted and suggest prior granulomatous disease. Osfofq-D-Nwvq extends into the SVC. Adenopathy is also identified extending along the posterior mediastinum and esophagus to the visualized upper abdomen with evidence for ascites. Adrenal glands are nonspecific in appearance. Surrounding musculoskeletal structures are grossly intact. IMPRESSION: 1. No evidence for pulmonary embolus. 2. Extensive areas of consolidation/airspace disease and interstitial infiltrates with pleural effusions and adenopathy similar to prior examination. 3. Chest tube at the right base with minimally decreased right pleural effusion as compared to prior examination. 4. Adenopathy extends along the esophagus into the upper abdomen with evidence for abdominal ascites. <Electronically signed by Tomi Doddmali > 06/30/20 [id number] MICROBIOLOGY: Please see below. ASSESSMENT: 64-year-old female with a history of hypertension, sarcoidosis, type 2 diabetes, metastatic adenocarcinoma of the right lung with malignant pleural effusion. PD L1 25% positive, ROSS1 negative, BRAF positive and ALK-negative, s/p radiation, on keytruda managed by Dr. Ureña, malignant pericardial effusion and bilateral malignant pleural effusions s/p pericardial window and chest tube management by Thoracic surgeon Dr. Tran presents w tachypnea and dyspnea on exertion. Patient was started on keytruda last and she was okay for 2 days and she started to feel some anxiety, feeling uncomfortable and shakiness. She thought that her keytruda was interacting with her other medications and saw her regular doctor to see if there is a drug interaction. , She complained of some insomnia and was given Ativan but 'I was scared to ." Because she started feeling more and she has an nervous and shaky. Patient waited another 2 days before she saw her primary care physician again who then started her on another medication. . She admits to taking nebulizer albuterol at home about 3 times a day and has noted worsening dyspnea on exertion after walking 10 feet, prompting her to come to the ER after calling her oncologist wanted her to be evaluated. In the ER, she was tachycardic, 112-118. CT chest showed no pulmonary embolism but persistent bilateral pleural effusions with increased consolidation in the left upper lobe and right middle and upper lobe. Patient was given intravenous Zosyn for possible postobstructive pneumonia despite not having a fever or chills. She's had no cough, chest pain, pressure, tightness. EKG had no acute ischemic changes. Hospitalist was asked to admit her for worsening shortness of breath from the malignant bilateral pleural effusions and possible pneumonia and COPD with wheezing on exam. Recurrent bilateral malignant pleural effusions with right chest tube Left upper lobe pneumonia COPD exacerbation Acute hypoxic respiratory failure Metastatic adenocarcinoma of the right lung Sarcoidosis Type 2 diabetes, insulin-dependent Hypertension SIRS PLAN: Dr. Tran thoracic surgeon has reviewed the patient's CT chest and agrees with thoracentesis of the left side. Right pleural effusion is improved with right Chest tube placement, which does not require any adjustment. Due to consolidation noted on CT patient has been started on intravenous Zosyn for broad-spectrum coverage in light of recent hospitalization to cover healthcare associated infections. If pro-calcitonin is negative, IV Zosyn will be discontinued since the patient does not complain of cough, fever or chills. Since the patient is having significant tremors with her albuterol. She will be switched to Xop enex and started on Solu-Medrol for wheezing and COPD exacerbation. Despite having lower extremity edema. Patient's blood pressure is remaining at 100-110, so Lasix will be given as needed for comfort. Since she might become hypotensive. . She'll be continued on a consistent carbohydrate diet, resume on her home medications. Hypoglycemic protocol. Insulin sliding scale., Her medical oncologist, Dr. ureña has been consulted. Vital Signs Vital Signs Date Time Temp Pulse Resp B/P (MAP) Pulse Ox O2 Delivery O2 Flow Rate FiO2 06/30/20 10:05 Room Air 06/30/20 09:50 06/30/20 09:19 97.2 113 15 100 2.0 Laboratory Data Labs 24H Laboratory Tests 2 06/30/20 10:17: POC pH (Misc Panel) 7.495H, POC Base Excess (Misc Panel) 10.0H, POC Saturated Percent O2 (Misc) 97, POC pO2 (Misc Panel) 84.0, POC pCO2 (Misc Panel) 43.2, POC HCO3 (Misc Panel) 33.3H, POC Total CO2 (Misc Panel) 35.0H 06/30/20 10:32: POC Total CO2 (Misc Panel) 36.0H, POC Glucose (Misc Panel) 75, POC Sodium (Misc Panel) 138, POC Potassium (Misc Panel) 2.9*L, POC Chloride (Misc Panel) 94L, POC Blood Urea Nitrogen (Misc Panel 12, POC Ionized Calcium (Misc Panel) 4.4L, POC Creatinine (Misc Panel) 0.5L, POC Hematocrit (Misc Panel) 37.0L 06/30/20 10:39: POC Troponin I (Misc) 0.00 06/30/20 10:41: Immature Granulocyte % (Auto) 0.8, Neutrophils (%) (Auto) 78.1H, Lymphocytes (%) (Auto) 7.2L, Monocytes (%) (Auto) 9.0H, Eosinophils (%) (Auto) 3.6H, Basophils (%) (Auto) 1.3H, Neutrophils # (Auto) 3.1, Lymphocytes # (Auto) 0.3L, Monocytes # (Auto) 0.4, Eosinophils # (Auto) 0.1, Basophils # (Auto) 0.1, Nucleated Red Blood Cells % (auto) 0.0, Prothrombin Time 12.7, Prothromb Time International Ratio 0.93, Urine Color YELLOW, Urine Appearance HAZY, Urine pH 6.0, Urine Specific [place] 1.032, Urine Protein 1+H, Urine Glucose (UA) 3+H, Urine Ketones 2+H, Urine Blood NEGATIVE, Urine Nitrite POSITIVEH, Urine Bilirubin NEGATIVE, Urine Urobilinogen 4.0H, Urine Leukocyte Esterase NEGATIVE, Urine WBC (Auto) 11H, Urine RBC (Auto) 1, Urine Hyaline Casts (Auto) 0, Urine Bacteria (Auto) 1+H, Urine Squamous Epithelial Cells 2, Urine Sperm (Auto) , Anion Gap 7L, Glomerular Filtration Rate > 60.0, Lactic Acid Level 1.3, Calcium Level 8.9, Magnesium Level 1.9, Total Bilirubin 1.3H, Direct Bilirubin 0.4H, Aspartate Amino Transf (AST/SGOT) 30, Alanine Aminotransferase (ALT/SGPT) 14, Alkaline Phosphatase 278H, XM-Jha-Y-Type Natriuretic Peptide 373H, Total Protein 6.4, Albumin 3.0L, Albumin/Globulin Ratio 0.9L, Thyroid Stimulating Hormone (TSH) 0.342L, Thyroxine (T4) 13.5H, Coronavirus (COVID-19)(PCR) NEGATIVE, Influenza Type A (RT-PCR) NEGATIVE, Influenza Type B (RT-PCR) NEGATIVE, Respiratory Syncytial Virus (PCR) NEGATIVE CBC/BMP Laboratory Tests 06/30/20 10:41 Microbiology Microbiology 06/30/20 Urine Culture, Received Pending 06/30/20 Blood Culture, Received Pending Home Medications Scheduled Empagliflozin (Jardiance) 10 Mg Tablet, 10 MG PO DAILY Insulin Glargine,Hum.rec.anlog (Basaglar Kwikpen U-100) 100 Unit/1 Ml Insuln.pen, 33 UNIT SC QHS STATES: DROPPED TO 31 UNITS FOR LAST FEW DOSES. Pantoprazole Sodium (Pantoprazole Sodium) 40 Mg Tablet.dr, 40 MG PO DAILY Semaglutide (Ozempic) 0.25 Mg/0.2 Ml Pen.injctr, 0.5 MG SC QWEEK MONDAY Trazodone HCl (Trazodone HCl) 50 Mg Tablet, 25 MG PO QHS Vilazodone HCl (Viibryd) 40 Mg Tablet, 40 MG PO DAILY Scheduled PRN Acetaminophen (Acetaminophen) 325 Mg Tablet, 650 MG PO Q4H PRN for Pain Albuterol Sulfate (Albuterol Sulfate Hfa) 8.5 Gm Hfa.aer.ad, 2 PUFFS INH Q4H PRN for SOB/WHEEZING Levalbuterol HCl (Levalbuterol HCl) 0.63 Mg/3 Ml Vial.neb, 0.63 MG NEB Q6H PRN for SHORTNESS OF BREATH Lorazepam (Ativan) 0.5 Mg Tablet, 0.5 MG PO Q4H PRN for ANXIETY/AGITATION Use sublingually if unable to swallow Allergies Coded Allergies: citalopram (Verified Adverse Reaction, Severe, jittery, 05/12/20) metformin (Verified Adverse Reaction, Severe, nausea, vomiting, 05/12/20) erythromycin base (Verified Adverse Reaction, Intermediate, vomiting, 04/20/20) azithromycin (Verified Adverse Reaction, Unknown, vomiting, 05/12/20) mirtazapine (Verified Adverse Reaction, Unknown, insomnia, 05/12/20) A-FIB/CHADSVASC A-FIB History Current/History of A-Fib/PAF?: No Current PO Anticoag Therapy: No Age/Risk Factor Scoring CHADSVASC: CHADSVASC Response (Comments) Value Age Risk Factor Age 65-74 years old 1 Gender Risk Factor Female 1 Hx of CHF No 0 Hx of HTN Yes 1 Hx of Stroke/TIA/or VTE No 0 Hx of Diabetes Yes 1 Hx of Vascular Disease No 0 Total 4 Treatment Treatment ordered: NONE BALDO FIORE MD Jun 30, 2020 14:15
[2020-06-30] MEDS ORDERED: LEVALBUTEROL 1.25 MG/0.5 ML CONCENTRATE NEB INH PRN (15:15)
[2020-06-30] MEDS ORDERED: ENOXAPARIN 40MG/0.4ML SYRINGE (J1650 PER 10MG) SC ONE (15:30)
[2020-06-30 15:41] LABS: FERRITIN 42 NG/ML (8-252); IRON (FE) 38 UG/DL (50-170); PERCENT SATURATION 11.9 % (13.2-45.0); TOTAL IRON BINDING CAPACITY 318 UG/DL (250-450)
[2020-06-30] MEDS: LEVALBUTEROL 1.25 MG/0.5 ML CONCENTRATE NEB INH SCH ×2 (15:52→20:00)
[2020-06-30 15:56] LABS: HEMOGLOBIN A1c 5.6 %
[2020-06-30] MEDS ORDERED: SODIUM BICARBONATE 8.4% INJ 50MEQ 50 ML VIAL As Ordered ONE (16:28)
[2020-06-30] MEDS: HumaLOG INSULIN (NovoLOG) PER UNIT SC SCH ×2 (18:54→20:50)
[2020-06-30] MEDS ORDERED: PILL CUTTER 1 EACH XX ONE (20:56)
[2020-06-30] MEDS: PIPERACILLIN/TAZOBACTAM SOD 3.375 GM in D5W MINI-BAG PLUS 50 ML IV SCH (21:07)
[2020-06-30] MEDS: methylPREDNISolone 125MG 2ML VIAL IV SCH (21:07)
[2020-06-30] MEDS: traZODone 50 MG TAB PO SCH (21:07)
[2020-06-30 22:02] LABS: MAGNESIUM LEVEL 2.3 MG/DL (1.8-2.4)
--- NOTE | 2020-06-30 22:54 | ECGEPIP ---
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
[2020-06-30 23:56] LABS: CLOSTRIDIUM DIFFICILE PCR NEGATIVE (NEGATIVE)
[2020-07-01] MEDS: LEVALBUTEROL 1.25 MG/0.5 ML CONCENTRATE NEB INH SCH ×7 (01:40→23:50)
[2020-07-01] MEDS: PIPERACILLIN/TAZOBACTAM SOD 3.375 GM in D5W MINI-BAG PLUS 50 ML IV SCH ×5 (02:30→20:45)
[2020-07-01] MEDS: methylPREDNISolone 125MG 2ML VIAL IV SCH ×4 (03:53→20:45)
[2020-07-01] MEDS: ACETAMINOPHEN TAB 650MG DOSE (2X325MG) PO PRN (04:55)
[2020-07-01 05:10] VITALS: BP 115/67
[2020-07-01 06:46] LABS: HEMATOCRIT 35.2 % (36.0-47.0); LYMPH # 0.1 10^3/uL (1.5-5.0); LYMPH % 4.7 % (24.0-44.0); MEAN CORPUSCULAR HEMOGLOBIN 25.2 pg (27.0-33.0); MEAN CORPUSCULAR HGB CONC 28.4 g/dl (32.0-36.5); MEAN CORPUSCULAR VOLUME 88.7 fl (80.0-96.0); MONO # 0.1 10^3/uL (0.0-0.8); MONO % 3.5 % (0.0-5.0); NEUTROPHILS # 2.3 10^3/uL (1.5-8.5); PLATELET COUNT, AUTOMATED 143 10^3/uL (150-450); RED BLOOD COUNT 3.97 10^6/uL (4.00-5.40); WHITE BLOOD COUNT 2.5 10^3/uL (4.0-10.0)
[2020-07-01 07:16] LABS: BLOOD UREA NITROGEN 19 MG/DL (7-18); CALCIUM LEVEL 9.1 MG/DL (8.8-10.2); CARBON DIOXIDE LEVEL 31 MEQ/L (21-32); CHLORIDE LEVEL 101 MEQ/L (98-107); CREATININE FOR GFR 0.86 MG/DL (0.55-1.30); GLOMERULAR FILTRATION RATE > 60.0 (>45); GLUCOSE, FASTING 192 MG/DL (70-100); MAGNESIUM LEVEL 2.3 MG/DL (1.8-2.4); POTASSIUM SERUM 4.5 MEQ/L (3.5-5.1); SODIUM LEVEL 141 MEQ/L (136-145)
[2020-07-01] MEDS ORDERED: METOPROLOL TART 12.5 MG PER 1/2 TAB PO ONE (08:00)
[2020-07-01] MEDS ORDERED: NON-FORMULARY 1 EA EA PO SCH (09:00)
[2020-07-01] MEDS: PANTOPRAZOLE 40MG TAB (PROTONIX) PO SCH (09:33)
[2020-07-01 09:35] VITALS: BP 116/69
[2020-07-01] MEDS: ENOXAPARIN 40MG/0.4ML SYRINGE (J1650 PER 10MG) SC SCH (09:36)
--- NOTE | 2020-07-01 09:36 | REP ---
INDICATION: sob s/p thoracentesis r/o pneumothorax COMPARISON: 06/30/2020 TECHNIQUE: PA and lateral. FINDINGS: Right basilar chest tube and right-sided Fiwrkx-U-Lopy in stable position. Perihilar and lower lobe airspace disease along with moderate pleural effusions essentially unchanged. No obvious pneumothorax. IMPRESSION: No significant change from prior examination <Electronically signed by Tomi Tejeda > 07/01/20 0932
[2020-07-01] MEDS: HumaLOG INSULIN (NovoLOG) PER UNIT SC SCH ×4 (09:37→21:00)
--- NOTE | 2020-07-01 13:25 | REP ---
INDICATION: LEFT MALIGNANT PLEURAL EFFUSION. COMPARISON: None. TECHNIQUE: An ultrasound was done of the left posterior lung zone to evelyne for a thoracentesis. FINDINGS: There is fluid present in the left chest but no safe place is identified for a thoracentesis. IMPRESSION: Left-sided pleural effusion without safe access for thoracentesis. <Electronically signed by Carleen Baum > 07/01/20 0857 <Electronically signed by Freeman Ellis > 07/01/20 [id number]
[2020-07-01 14:00] VITALS: BP 153/88
--- NOTE | 2020-07-01 14:16 | IPNPDOC ---
Date Seen The patient was seen on 07/01/20. Progress Note S: SOB improved,but still tachycardic. no c/o dizziness, chest pressure, tightness, or lightheadedness. less tremors and restlessness with xopenex. off albuterol. O: PHYSICAL EXAMINATION: VITAL SIGNS: please see below General: AAOx 3 HEENT: PERRLA, no JVD, no thyromegaly, moist mm, no cervical LAD, EOMI, sclerae clear Lungs: Diminished breath sounds, bilateral wheezing, prolonged expiration, crackles, right middle and lower lobe, left upper lobe Heart: s1S2 RRR Abd: soft, nontender nondistended no masses, no hepatosplenomegaly, BS+ x4 quadrants, no rebound tenderness Extremities: Bilateral 1+ edema in the lower extremities, pulses 2+ LABORATORY DATA: See below. IMAGING: LLE venous duplex:(06/06/20): IMPRESSION: No evidence for deep venous thrombosis. Bose's cyst CT Abdo/Pelvis w IV contrast (06/06/20): IMPRESSION: 1. Small amount of right upper quadrant and pelvic ascites along with considerable adenopathy consistent with malignancy. 2. Changes suggesting cirrhosis and portal hypertension. 3. Relatively simple appearing right renal cysts. CT chest 06/30/20 COMPARISON: 06/06/2020 TECHNIQUE: Axial contrast enhanced images from the thoracic inlet to the upper abdomen using pulmonary embolus technique with multiplanar re-formations. 75 ml Isovue 370 intravenous contrast material administered without complication. This CT examination was performed using the following dose reduction techniques: Automated exposure control, adjustment of mA and/or kv according to the patient's size, and use of iterative reconstruction technique. FINDINGS: No obvious pulmonary embolus identified. Atherosclerotic changes to the thoracic aorta and coronary arteries noted along with small pericardial effusion. Large area of consolidation extending from the right hilum/mediastinum as well as significant infiltrates involving the basilar left upper lobe, right upper lobe, right middle lobe and right lower lobe noted with diffusely increased interstitial markings, moderate left and small right pleural effusions and significant reactive adenopathy again noted and similar to prior examination. Chest tube at the right base is appreciated and the right pleural effusion is slightly decreased when compared to prior examination. Calcified lymph nodes are also noted and suggest prior granulomatous disease. Lmmirr-H-Hnki extends into the SVC. Adenopathy is also identified extending along the posterior mediastinum and esophagus to the visualized upper abdomen with evidence for ascites. Adrenal glands are nonspecific in appearance. Surrounding musculoskeletal structures are grossly intact. IMPRESSION: 1. No evidence for pulmonary embolus. 2. Extensive areas of consolidation/airspace disease and interstitial infiltrates with pleural effusions and adenopathy similar to prior examination. 3. Chest tube at the right base with minimally decreased right pleural effusion as compared to prior examination. 4. Adenopathy extends along the esophagus into the upper abdomen with evidence for abdominal ascites. <Electronically signed by Tomi Garnettmaykelkenneth > 06/30/20 [id number] MICROBIOLOGY: Please see below. ASSESSMENT: 64-year-old female with a history of hypertension, sarcoidosis, type 2 diabetes, metastatic adenocarcinoma of the right lung with malignant pleural effusion. PD L1 25% positive, ROSS1 negative, BRAF positive and ALK-negative, s/p radiation, on keytruda managed by Dr. Regalado, malignant pericardial effusion and bilateral malignant pleural effusions s/p pericardial window and chest tube management by Thoracic surgeon Dr. Tran presents w tachypnea and dyspnea on exertion. Patient was started on keytruda last and she was okay for 2 days and she started to feel some anxiety, feeling uncomfortable and shakiness. She thought that her keytruda was interacting with her other medications and saw her regular doctor to see if there is a drug interaction. , She complained of some insomnia and was given Ativan but 'I was scared to ." Because she started feeling more and she has an nervous and shaky. Patient waited another 2 days before she saw her primary care physician again who then started her on another medication. . She admits to taking nebulizer albuterol at home about 3 times a day and has noted worsening dyspnea on exertion after walking 10 feet, prompting her to come to the ER after calling her oncologist wanted her to be evaluated. In the ER, she was tachycardic, 112-118. CT chest showed no pulmonary embolism but persistent bilateral pleural effusions with increased consolidation in the left upper lobe and right middle and upper lobe. Patient was given intravenous Zosyn for possible postobstructive pneumonia despite not having a fever or chills. She's had no cough, chest pain, pressure, tightness. EKG had no acute ischemic changes. Hospitalist was asked to admit her for worsening shortness of breath from the malignant bilateral pleural effusions and possible pneumonia and COPD with wheezing on exam. Recurrent bilateral malignant pleural effusions with right chest tube -not much fluid on us yesterday to drain. -right catheter does not need re-adjustment according to thoracic surgery -on keytruda started last -on radiation -progressive disease on repeat ct chest -[facility] dr. Regalado consulted Left upper lobe pneumonia -on iv zosyn -awaiting mrsa screen acute COPD exacerbation -on iv solumedrol, xopenex, abx -keep o2 [id number]% -on nc o2 Acute hypoxic respiratory failure -due to pneumonia and copd exacerbation -may need supplemental oxygen if o2 sat<88% room air w ambulation -on abx, solumedrol, supplemental oxygen Metastatic adenocarcinoma of the right lung -on keytruda and radiation -[facility] consulted Sarcoidosis -chronic Type 2 diabetes, insulin-dependent -consistent carbs -fingersticks qac hs -insulin sliding scale w coverage Hypertension -controlled SIRS -on abx. disposition: wants to go home in am. [facility] Signs/I&O Vital Signs Date Time Temp Pulse Resp B/P (MAP) Pulse Ox O2 Delivery O2 Flow Rate FiO2 07/01/20 09:35 120 116/69 07/01/20 09:00 2.0 07/01/20 05:10 98.6 18 93 Nasal Cannula I&O- Last 24 Hours up to 6 AM 07/01/20 06:00 Intake Total 350 ml Output Total 0 ml Balance 350 ml Laboratory Data 24H LABS Laboratory Tests 2 06/30/20 14:37: Bedside Glucose (Misc Panel) 115 06/30/20 15:25: Estimated Mean Plasma Glucose 114H, Hemoglobin A1c 5.6 06/30/20 17:52: Bedside Glucose (Misc Panel) 206H 06/30/20 20:46: Bedside Glucose (Misc Panel) 197H 06/30/20 21:31: Whole Blood Ionized Calcium 4.2L, Magnesium Level 2.3 06/30/20 23:03: Clostridium difficile 027-NAP1-B1 PRESUMPTIVE NEGATIVE, Clostridium difficile Toxin (PCR) NEGATIVE 07/01/20 06:29: Magnesium Level 2.3, Immature Granulocyte % (Auto) 0.8, Neutrophils (%) (Auto) 91.0H, Lymphocytes (%) (Auto) 4.7L, Monocytes (%) (Auto) 3.5, Eosinophils (%) (Auto) 0.0, Basophils (%) (Auto) 0.0, Neutrophils # (Auto) 2.3, Lymphocytes # (Auto) 0.1L, Monocytes # (Auto) 0.1, Eosinophils # (Auto) 0.0, Basophils # (Auto) 0.0, Nucleated Red Blood Cells % (auto) 0.0, Anion Gap 9, Glomerular Fi ltration Rate > 60.0, Calcium Level 9.1 07/01/20 07:27: Methicillin-Resist S.aureus DNA PCR NOT DETECTED 07/01/20 11:41: Bedside Glucose (Misc Panel) 189H CBC/BMP Laboratory Tests 06/30/20 21:31 07/01/20 06:29 Microbiology Microbiology 06/30/20 Urine Culture, Received Pending 06/30/20 Blood Culture, Received Pending 06/30/20 Blood Culture - Preliminary, Resulted No growth after 24 hours . All specim... BALDO FIORE MD Jul 01, 2020 14:16
[2020-07-01] MEDS ORDERED: LEVA12INH INH (14:56)
[2020-07-01] MEDS ORDERED: PRED10TA2 PO (14:58)
[2020-07-01] MEDS ORDERED: DOXY-350 PO (14:58)
[2020-07-01] MEDS ORDERED: BACI1CAP PO (14:58)
[2020-07-01] MEDS ORDERED: CEFD1CAP8 PO (14:58)
--- NOTE | 2020-07-01 18:14 | IPNPDOC ---
Date Seen The patient was seen on 07/01/20. Progress Note SUBJECTIVE: Patient is a 64 -year-old [lady with known history of lung cancer. She has adenocarcinoma. She was treated with radiation . She was started on Keytruda. She is admitted with short\ness of breath. OBJECTIVE PHYSICAL EXAMINATION: VITAL SIGNS: Please see below. GENERAL : [Awake and alert HEENT: normal CARDIOVASCULAR: .regular rhytnm RESPIRATORY: no wheeze and no rales . ABDOMINAL: soft EXTREMITIES: [ one plus pretibial edema NEUROLOGICAL: PSYCHOLOGICAL: LABORATORY DATA, IMAGING STUDIES, MICROBIOLOGY: Please see below. Echocardiogram: . DVT prophylaxis ordered?: ASSESSMENT AND PLAN: This is a -year-old [RACE] [GENDER] with . PROBLEMS: 1. : [lung cancer 2. : .recent pneumonia 3. : .history of getting radiation and Keytruda. Agree with IV antibiotics and steroids. Patient is improving on this combination. DISPOSITION: . VS, I&O, 24H, [facility] Vital Signs/I&O Vital Signs Date Time Temp Pulse Resp B/P (MAP) Pulse Ox O2 Delivery O2 Flow Rate FiO2 07/01/20 14:00 98.2 125 18 153/88 (109) 98 Nasal Cannula 2.0 I&O- Last 24 Hours up to 6 AM 07/01/20 06:00 Intake Total 350 ml Output Total 0 ml Balance 350 ml Laboratory Data 24H LABS Laboratory Tests 2 06/30/20 20:46: Bedside Glucose (Misc Panel) 197H 06/30/20 21:31: Whole Blood Ionized Calcium 4.2L, Magnesium Level 2.3 06/30/20 23:03: Clostridium difficile 027-NAP1-B1 PRESUMPTIVE NEGATIVE, Clostridium difficile Toxin (PCR) NEGATIVE 07/01/20 06:29: Magnesium Level 2.3, Immature Granulocyte % (Auto) 0.8, Neutrophils (%) (Auto) 91.0H, Lymphocytes (%) (Auto) 4.7L, Monocytes (%) (Auto) 3.5, Eosinophils (%) (Auto) 0.0, Basophils (%) (Auto) 0.0, Neutrophils # (Auto) 2.3, Lymphocytes # (Auto) 0.1L, Monocytes # (Auto) 0.1, Eosinophils # (Auto) 0.0, Basophils # (Auto) 0.0, Nucleated Red Blood Cells % (auto) 0.0, Anion Gap 9, Glomerular Filtration Rate > 60.0, Calcium Level 9.1 07/01/20 07:27: Methicillin-Resist S.aureus DNA PCR NOT DETECTED 07/01/20 11:41: Bedside Glucose (Misc Panel) 189H 07/01/20 16:59: Bedside Glucose (Misc Panel) 169H CBC/BMP Laboratory Tests 06/30/20 21:31 07/01/20 06:29 Microbiology Microbiology 06/30/20 Urine Culture, Received Pending 06/30/20 Blood Culture - Preliminary, Resulted No growth after 24 hours . All specim... 06/30/20 Blood Culture - Preliminary, Resulted No growth after 24 hours . All specim... ROSALIO SILVESTRE MD Jul 01, 2020 18:14
[2020-07-01] MEDS: traZODone 50 MG TAB PO SCH (20:45)
[2020-07-01 22:00] VITALS: BP 118/78
[2020-07-02] MEDS: methylPREDNISolone 125MG 2ML VIAL IV SCH ×2 (02:34→08:48)
[2020-07-02] MEDS: PIPERACILLIN/TAZOBACTAM SOD 3.375 GM in D5W MINI-BAG PLUS 50 ML IV SCH ×2 (02:34→08:48)
[2020-07-02] MEDS: ACETAMINOPHEN TAB 650MG DOSE (2X325MG) PO PRN (02:51)
[2020-07-02] MEDS: LEVALBUTEROL 1.25 MG/0.5 ML CONCENTRATE NEB INH SCH ×3 (03:00→11:24)
[2020-07-02 06:00] VITALS: BP 113/73
[2020-07-02 06:25] LABS: BASO % 0.2 % (0.0-1.0); HEMATOCRIT 36.9 % (36.0-47.0); HEMOGLOBIN 10.4 g/dl (12.0-15.5); LYMPH # 0.2 10^3/uL (1.5-5.0); MEAN CORPUSCULAR HGB CONC 28.2 g/dl (32.0-36.5); MEAN CORPUSCULAR VOLUME 88.7 fl (80.0-96.0); MONO # 0.2 10^3/uL (0.0-0.8); MONO % 4.2 % (0.0-5.0); NEUTROPHILS # 4.9 10^3/uL (1.5-8.5); NEUTROPHILS % 91.7 % (36.0-66.0); PLATELET COUNT, AUTOMATED 182 10^3/uL (150-450); RED BLOOD COUNT 4.16 10^6/uL (4.00-5.40); WHITE BLOOD COUNT 5.3 10^3/uL (4.0-10.0)
[2020-07-02 06:50] LABS: BLOOD UREA NITROGEN 19 MG/DL (7-18); CALCIUM LEVEL 8.7 MG/DL (8.8-10.2); CARBON DIOXIDE LEVEL 34 MEQ/L (21-32); CHLORIDE LEVEL 98 MEQ/L (98-107); CREATININE FOR GFR 0.84 MG/DL (0.55-1.30); GLOMERULAR FILTRATION RATE > 60.0 (>45); GLUCOSE, FASTING 203 MG/DL (70-100); MAGNESIUM LEVEL 2.4 MG/DL (1.8-2.4); POTASSIUM SERUM 3.3 MEQ/L (3.5-5.1); SODIUM LEVEL 141 MEQ/L (136-145)
[2020-07-02] MEDS: HumaLOG INSULIN (NovoLOG) PER UNIT SC SCH ×2 (07:30→12:34)
[2020-07-02] MEDS: PANTOPRAZOLE 40MG TAB (PROTONIX) PO SCH (08:47)
[2020-07-02] MEDS: ENOXAPARIN 40MG/0.4ML SYRINGE (J1650 PER 10MG) SC SCH (08:48)
[2020-07-02] MEDS ORDERED: LEVA12INH INH ×2 (10:06→10:41)
--- NOTE | 2020-07-02 10:38 | DS.PDOC ---
Discharge Summary General Date of Admission Jun 30, 2020 at 14:44 Date of Discharge 07/02/20 Discharge Summary PROCEDURES PERFORMED DURING STAY: attempted us guided thoracentesis, but no significant pleural effusion. DISCHARGE DIAGNOSES: Recurrent bilateral malignant pleural effusions with right chest tube Left upper lobe pneumonia COPD exacerbation Acute hypoxic respiratory failure Metastatic adenocarcinoma of the right lung Sarcoidosis Type 2 diabetes, insulin-dependent Steroid-induced hyperglycemia Hypertension SIRS DISCHARGE MEDICATIONS: SEE BELOW DISCHARGE INSTRUCTIONS: Keep O2 saturations between 88-92%. Primary care physician, medical oncologist, radiation oncologist, roasterman. Follow-up within 1 week of hospital discharge Lucero roasterman or primary care physician if oxygen saturation is less than 80% despite supplemental oxygen CONSULTANTS: Quantitative Associate oncologist, Dr. Onofre Gannon Thoracic surgeon, Dr. Alfonso Tran-reviewed. CT chest, but no formal consult HISTORY OF PRESENT ILLNESS: 64-year-old female with a history of hypertension, sarcoidosis, type 2 diabetes, metastatic adenocarcinoma of the right lung with malignant pleural effusion. PD L1 25% positive, ROSS1 negative, BRAF positive and ALK-negative, s/p radiation, on keytruda managed by Dr. Regalado, malignant pericardial effusion and bilateral malignant pleural effusions s/p pericardial window and chest tube management by Thoracic surgeon Dr. Tran presents w tachypnea and dyspnea on exertion. Patient was started on keytruda last and she was okay for 2 days and she started to feel some anxiety, feeling uncomfortable and shakiness. She thought that her keytruda was interacting with her other medications and saw her regular doctor to see if there is a drug interaction. , She complained of some insomnia and was given Ativan but 'I was scared to ." Because she started feeling more and she has an nervous and shaky. Patient waited another 2 days before she saw her primary care physician again who then started her on another medication. . She admits to taking nebulizer albuterol at home about 3 times a day and has noted worsening dyspnea on exertion after walking 10 feet, prompting her to come to the ER after calling her oncologist wanted her to be evaluated. In the ER, she was tachycardic, 112- 118. CT chest showed no pulmonary embolism but persistent bilateral pleural e ffusions with increased consolidation in the left upper lobe and right middle and upper lobe. Patient was given intravenous Zosyn for possible postobstructive pneumonia despite not having a fever or chills. She's had no cough, chest pain, pressure, tightness. EKG had no acute ischemic changes. Hospitalist was asked to admit her for worsening shortness of breath from the malignant bilateral pleural effusions and possible pneumonia and COPD with wheezing on exam. HOSPITAL COURSE: Patient was admitted for COPD exacerbation and was given intravenous Zosyn, IV Solu-Medrol, supplemental oxygen, nebulizer treatments with Xopenex since the patient complained of tremors and increased anxiety and restlessness with albuterol. Patient had improvement in her wheezing and had clear lungs on discharge, her CT chest was evaluated by thoracic surgeon, Dr. Tran, who did not feel that she needed the right chest tube catheter adjusted. She was sent for ultrasound-guided thoracentesis of the left pleural effusion but did not have a significant amount enough to remove. Patient remained tachycardic during her hospital stay with heart rate ranging between 100 -120 beats per minute but remained in sinus rhythm without atrial fibrillation or atrial flutter, and denied any symptoms of palpitations, lightheadedness or dizziness or any falls. Patient was stable for discharge home to follow up with her primary care physician, roasterman, medical oncologist and radiation oncologist as outpatient. She was given a prescription for pulse oximetry to keep her saturations between 80-92% at home. . She specifically requested Xopenex due to adverse reaction to albuterol causing increased anxiety, tremors and restlessness. DISCHARGE PHYSICAL EXAMINATION: VITAL SIGNS: please see below General: no conversational dyspnea, anicteric, no jaundice, no pallor HEENT: PERRLA, no JVD, no thyromegaly, moist mm, no cervical LAD, EOMI, sclerae clear Lungs: Diminished breath sounds, clear in the upper lobes, crackles, right middle and lower lobe, left upper lobe Heart: s1S2 RRR. No JVD Abd: soft, nontender nondistended no masses, no hepatosplenomegaly, BS+, no rebound tenderness Extremities: Bilateral 1+ edema in the lower extremities, pulses 2+ LABORATORY DATA: See below. IMAGING: LLE venous duplex:(06/06/20): IMPRESSION: No evidence for deep venous thrombosis. Bose's cyst CT Abdo/Pelvis w IV contrast (06/06/20): IMPRESSION: 1. Small amount of right upper quadrant and pelvic ascites along with considerable adenopathy consistent with malignancy. 2. Changes suggesting cirrhosis and portal hypertension. 3. Relatively simple appearing right renal cysts. CT chest 06/30/20 COMPARISON: 06/06/2020 TECHNIQUE: Axial contrast enhanced images from the thoracic inlet to the upper abdomen using pulmonary embolus technique with multiplanar re-formations. 75 ml Isovue 370 intravenous contrast material administered without complication. This CT examination was performed using the following dose reduction techniques: Automated exposure control, adjustment of mA and/or kv according to the pa tient's size, and use of iterative reconstruction technique. FINDINGS: No obvious pulmonary embolus identified. Atherosclerotic changes to the thoracic aorta and coronary arteries noted along with small pericardial effusion. Large area of consolidation extending from the right hilum/mediastinum as well as significant infiltrates involving the basilar left upper lobe, right upper lobe, right middle lobe and right lower lobe noted with diffusely increased interstitial markings, moderate left and small right pleural effusions and significant reactive adenopathy again noted and similar to prior examination. Chest tube at the right base is appreciated and the right pleural effusion is slightly decreased when compared to prior examination. Calcified lymph nodes are also noted and suggest prior granulomatous disease. Xvvqro-D-[id number] extends into the SVC. Adenopathy is also identified extending along the posterior mediastinum and esophagus to the visualized upper abdomen with evidence for ascites. Adrenal glands are nonspecific in appearance. Surrounding musculoskeletal structures are grossly intact. IMPRESSION: 1. No evidence for pulmonary embolus. 2. Extensive areas of consolidation/airspace disease and interstitial infiltrates with pleural effusions and adenopathy similar to prior examination. 3. Chest tube at the right base with minimally decreased right pleural effusion as compared to prior examination. 4. Adenopathy extends along the esophagus into the upper abdomen with evidence for abdominal ascites. <Electronically signed by Tomi Tejeda > 06/30/20 1335 MICROBIOLOGY: Please see below. TIME SPENT ON DISCHARGE: 30 MINUTES Vital Signs/I&Os Vital Signs Date Time Temp Pulse Resp B/P (MAP) Pulse Ox O2 Delivery O2 Flow Rate FiO2 07/02/20 06:00 98.0 118 18 113/73 (86) 99 Nasal Cannula 2.0 I&O- Last 24 Hours up to 6 AM 07/02/20 06:00 Intake Total 1170 ml Output Total 200 ml Balance 970 ml Laboratory Data Labs 24H Laboratory Tests 2 07/01/20 11:41: Bedside Glucose (Misc Panel) 189H 07/01/20 16:59: Bedside Glucose (Misc Panel) 169H 07/01/20 20:38: Bedside Glucose (Misc Panel) 240H 07/02/20 05:28: Immature Granulocyte % (Auto) 0.9, Neutrophils (%) (Auto) 91.7H, Lymphocytes (%) (Auto) 3.0L, Monocytes (%) (Auto) 4.2, Eosinophils (%) (Auto) 0.0, Basophils (%) (Auto) 0.2, Neutrophils # (Auto) 4.9, Lymphocytes # (Auto) 0.2L, Monocytes # (Auto) 0.2, Eosinophils # (Auto) 0.0, Basophils # (Auto) 0.0, Nucleated Red Blood Cells % (auto) 0.0, Anion Gap 9, Glomerular Filtration Rate > 60.0, Calcium Level 8.7L, Magnesium Level 2.4 CBC/BMP Laboratory Tests 07/02/20 05:28 FSBS Laboratory Tests Test 07/01/20 11:41 07/01/20 16:59 07/01/20 20:38 Range/Units Bedside Glucose (Misc Panel) 189 169 240 80-115 MG/DL Microbiology Microbiology 06/30/20 Urine Culture - Preliminary, Resulted Klebsiella Pneumoniae 06/30/20 Blood Culture - Preliminary, Resulted No growth after 24 hours . All specim... 06/30/20 Blood Culture - Preliminary, Resulted No growth after 24 hours . All specim... Discharge Medications Scheduled Bacillus Coagulans (Bacid with Lactospore) 1 Each Capsule, 1 CAP PO BID Cefdinir (Cefdinir) 300 Mg Capsule, 300 MG PO BID Doxycycline Monohydrate (Doxycycline) 100 Mg Capsule, 100 MG PO BID Empagliflozin (Jardiance) 10 Mg Tablet, 10 MG PO DAILY, (Reported) Insulin Glargine,Hum.rec.anlog (Basaglar Kwikpen U-100) 100 Unit/1 Ml Insuln.pen, 33 UNIT SC QHS, (Reported) STATES: DROPPED TO 31 UNITS FOR LAST FEW DOSES. Levalbuterol Hydrochloride (Xopenex Concentrate) 1.25 Mg/0.5 Ml Vial.neb, 1.25 MG INH RQ4H Pantoprazole Sodium (Pantoprazole Sodium) 40 Mg Tablet.dr, 40 MG PO DAILY, (Reported) Prednisone (Prednisone) 10 Mg Tablet, 10 MG PO TAPER Take 4 tabs daily x 3 days, then 3 tabs daily x 3 days, then 2 tabs daily x 3 days, then 1 tab daily x 3 days and stop Semaglutide (Ozempic) 0.25 Mg/0.2 Ml Pen.injctr, 0.5 MG SC QWEEK, (Reported) MONDAY Trazodone HCl (Trazodone HCl) 50 Mg Tablet, 25 MG PO QHS, (Reported) Vilazodone HCl (Viibryd) 40 Mg Tablet, 40 MG PO DAILY, (Reported) Scheduled PRN Acetaminophen (Acetaminophen) 325 Mg Tablet, 650 MG PO Q4H PRN for Pain Levalbuterol HCl (Levalbuterol HCl) 0.63 Mg/3 Ml Vial.neb, 0.63 MG NEB Q6H PRN for SHORTNESS OF BREATH, (Reported) Levalbuterol Hydrochloride (Xopenex Concentrate) 1.25 Mg/0.5 Ml Vial.neb, 1.25 MG INH Q1HP PRN for SHORTNESS OF BREATH Lorazepam (Ativan) 0.5 Mg Tablet, 0.5 MG PO Q4H PRN for ANXIETY/AGITATION, (Reported) Use sublingually if unable to swallow Allergies Coded Allergies: citalopram (Verified Adverse Reaction, Severe, jittery, 05/12/20) metformin (Verified Adverse Reaction, Severe, nausea, vomiting, 05/12/20) erythromycin base (Verified Adverse Reaction, Intermediate, vomiting, 04/20/20) azithromycin (Verified Adverse Reaction, Unknown, vomiting, 05/12/20) mirtazapine (Verified Adverse Reaction, Unknown, insomnia, 05/12/20) BALDO FIORE MD Jul 02, 2020 10:35
== END 2020-07-02 12:47 | disposition home health service (06) | DRG 180 ==
LOC: M ED 09:18 → M ED INP 14:44 → M MSPAV 07-01 05:30
PROVIDERS: ADMIT General Practice; ATTEND General Practice
DX: C34.11 Malignant neoplasm of upper lobe, right bronchus or lung (principal); J18.9 Pneumonia, unspecified organism; J96.01 Acute respiratory failure with hypoxia; D61.811 Other drug-induced pancytopenia; J91.0 Malignant pleural effusion; J44.1 Chronic obstructive pulmonary disease with (acute) exacerbation; K76.6 Portal hypertension; Z97.8 Presence of other specified devices; I10 Essential (primary) hypertension; Z79.4 Long term (current) use of insulin; D86.9 Sarcoidosis, unspecified; Z79.899 Other long term (current) drug therapy; Z88.8 Allergy status to other drugs, medicaments and biological substances; E11.65 Type 2 diabetes mellitus with hyperglycemia; Z88.1 Allergy status to other antibiotic agents; Z86.711 Personal history of pulmonary embolism; K21.9 Gastro-esophageal reflux disease without esophagitis; L40.8 Other psoriasis; K74.60 Unspecified cirrhosis of liver

== ENCOUNTER → 2020-07-09 | Outpatient (RCR) | payer OTHER ==
--- NOTE | 2020-06-19 10:22 | POST-OPPD ---
Postoperative Procedure Note Date Of Procedure: Jun 18, 2020 Time Of Procedure: 16:00 IR ultrasound and fluoroscopy guided port placement IR Ultrasound of the neck. IR Moderate sedation. Clinical indication: Lung cancer. Physician: Dr. Tracy. Procedure: The patient was advised of the benefits, risks, and alternatives of the procedure and informed consent was obtained. A time-out was performed with verification of the patient's name, MRN, site of procedure and type of procedure to be performed. The patient was positioned in the supine position on the angiographic table. The site was prepped and draped in the usual sterile fashion. Moderate sedation was performed by the physician including the presence of an independent trained RN who assisted and monitored the patient's level of consciousness and physiologic status. Following the administration of fentanyl and Versed , the physician spent 45 minutes of continuous face to face time with the patient. Ultrasound of the neck reveals a patent and compressible right internal jugular vein. A astrobiologist radiograph reveals right pleural effusion. Partially imaged Pleurx catheter. The neck and anterior chest wall were anesthetized with lidocaine. The right internal jugular vein was accessed using a microintroducer needle under ultrasound guidance, via a lateral approach. An 018 wire was advanced into the superior vena cava, the needle was removed and a microsheath was placed. An Amp latz wire was then passed into the inferior vena cava. An incision at the internal jugular vein access site and anterior chest wall were made using a scalpel. An incision was made at the anterior chest wall. A small pocket was created using a combination of blunt and sharp dissection. A tunneling device was then used to pass the catheter from the pocket to the neck puncture site. An 8- [place] Angio [employer] Smart power port was then positioned in the pocket. The catheter was then measured and cut. The introducer sheath was exchanged for a peel-away sheath. The catheter was passed through the peel-away sheath into the internal jugular vein and the peel- away sheath was removed. The port tip was positioned at the cavoatrial junction. The port was then accessed with a Granados needle. The port flushes and aspirates well. The puncture site in the neck was closed. The chest wall incision was then closed with 2-0 Vicryl and 4-0 Monocryl. Glue and Steri- Strips were applied. A sterile dressing was then applied. The patient tolerated the procedure well and was returned to the PRU in stable condition. Estimated blood loss: <5 ml. Complications: None. Conclusion: 1. Successful placement of an 8-[place] Angio dynamics Smart power port via the right internal jugular vein. The port is ready for immediate use. 2. Patient to follow up in IR clinic in 2 weeks. Thank you for this referral. OSBALDO TRACY MD Jun 19, 2020 10:22
[~2020-07-09] MED LIST changes: +BACI1CAP PO; +CEFD1CAP8 PO; +DOXY-350 PO; +LEVA12INH INH; +PRED10TA2 PO; +TRAZ-252 PO
== END ==
LOC: M ONCR 06-10 15:02
PROVIDERS: ATTEND General Practice
DX: C34.11 Malignant neoplasm of upper lobe, right bronchus or lung (principal)

== ENCOUNTER → 2020-07-14 | Outpatient (POV) | payer OTHER ==
[~2020-07-14] MED LIST changes: +OXYC-517 PO
--- NOTE | 2020-07-20 12:38 | IRPN ---
[facility] IR Progress Note IR Progress Note DATE: Jul 14, 2020 Patient agreed to this telephone follow-up. Duration of call 5 minutes. FOLLOW-UP: Patient status post port placement. Patient denies any fevers, chills, pain at site or discharge. Patient states port was used without any issues. ON EXAMINATION: No video on patient side. IMPRESSION: Status post port placement, patient doing well. No further follow-up scheduled unless initiated by patient and/or referring provider. Thank you for this referral Allergies Coded Allergies: citalopram (Verified Adverse Reaction, Severe, jittery, 05/12/20) metformin (Verified Adverse Reaction, Severe, nausea, vomiting, 05/12/20) erythromycin base (Verified Adverse Reaction, Intermediate, vomiting, 04/20/20) azithromycin (Verified Adverse Reaction, Unknown, vomiting, 05/12/20) mirtazapine (Verified Adverse Reaction, Unknown, insomnia, 05/12/20) OSBALDO ENCARNACION MD Jul 20, 2020 12:38
== END ==
LOC: M TMIRPOV 10:45
PROVIDERS: ATTEND Radiology Diagnostic Radiology
DX: Z45.2 Encounter for adjustment and management of vascular access device (principal)

== ENCOUNTER 2020-07-22 14:55 | Outpatient (RCR) | payer OTHER ==
--- NOTE | 2020-07-17 08:16 | RADENCPD ---
Date/Time of Encounter Date of Encounter: Jul 17, 2020 Time of Encounter: 08:15 Encounter Spoke to Zafar, Mercedes doesn't feel well today. Some upset stomach and mild increased SOB. No new cough or hemoptysis. T 99.1. She would like to rest this and resume Monday. This is reasonable. Cautioned if breathing worsens, recurrent left pleural effusion may be the issue and so she could come to the ED. They agree. PATEL RUSSO MD Jul 17, 2020 08:16
[2020-07-24] MEDS ORDERED: METO1TAB32 PO (09:40)
[2020-07-24] MEDS ORDERED: LOVA20TA2 PO (09:40)
[2020-08-05] MEDS ORDERED: LEVA0.6322 INH (11:27)
[2020-08-05] MEDS ORDERED: CALC0.004 TOP (11:27)
[2020-08-05] MEDS ORDERED: FERR325T20 PO (11:27)
[2020-08-05] MEDS ORDERED: METO1TAB7 PO (11:27)
== END 2020-08-09 ==
LOC: M ONCR 14:55
PROVIDERS: ATTEND General Practice
DX: C34.11 Malignant neoplasm of upper lobe, right bronchus or lung (principal)

== ENCOUNTER 2020-08-05 06:52 | Inpatient (IN) | payer MEDICARE, OTHER ==
[~2020-08-05] VITALS: Ht 152.4 cm; Wt 82.6 kg
[~2020-08-05 06:52] MED LIST changes: +METO1TAB32 PO
--- OUTSIDE RECORDS SUMMARY | 2020-08-05 06:59 | CCD | Continuity of Care Document ---
Author Author Mercedes ZAMORA M.D. Organization Unknown Address [address] [place] [address] Phone [phone] Care Team Providers Care Recycle Worker Name Role Phone Matt Huynh M.D. AUTM [phone] Ghassan Rodriguez M.D. AUTM [phone] Leona Hernández M.D. AUTM [phone] Problems Description No Information Available Social History Type Date Description Comments Sex Unknown Tobacco Use Start: Unknown End: Patient is a former smoker Smoking Status Reviewed: 05/28/20 Patient is a former smoker Allergies, Adverse Reactions, Alerts Description No Known Drug Allergies Medications Active Medications SIG Qnty Indications Ordering Provide r Date Ventolin HFA 108(90Base) mcg/Act A erosol 2 puffs every 4 hours as needed 18gm Dakota Lara 05/28/2020 Prednisone 10mg Tablets 30mg qd x 3 days then 20mg qd x3 days then 10mg qd x 3 days and stop 30tabs Jannet Zamora M.D. 04/28/2020 Levalbuterol HCL 0.63mg/3ML Nebuli zer 1 vial nebulized three times a day as needed 270ml R91.8 Jannet Ovalle M.D. 04/10/2020 Lovastatin 40mg Tablets 1/2 by mouth every day Unknown Basaglar Kwikpen 100 Unit/ML Solution Pen-Inject 37 units Unknown Pantoprazole Sodium 40mg Tablets D R 1 tab by mouth everyday Unknown Jardiance 10mg Tablets 1 tab by mouth everyday Unknown Metoprolol Succinate ER 50mg Tablets ER 24HR 1 tab by mouth everyday Unknown Viibryd 20mg Tablets 2 tabs by mouth everyday Unknown Enalapril Maleate 5mg Tablets 1 tab by mouth everyday Unknown Ozempic (0.25 Or 0.5 MG/Dose) 2mg/1.5ML Solution Pen-Inject Unknown Levalbuterol HCL 0.63mg/3ML Nebuli zer 1 vial via neb three time a day Unknown History Medications Prednisone 20mg Tablets 2 by mouth every day for 5 days 10taJannet Conti M.D. 04/23/2020 - 04/28/2020 Prednisone 10mg Tablets 4 tabs by mouth daily for 3 days, then 3 tabs daily for 3 days, then 2 tabs daily for 3 days then 1 tab daily for 3 days 30taJannet Conti M.D. 04/13/2020 - 04/23/2020 Immunizations Description No Information Available Vital Signs Date Vital Result Comment 05/28/2020 10:58am BP Systolic 120 mmHg BP Diastolic 60 mmHg Heart Rate 88 /min O2 % BldC Oximetry 95 % Room Air Height 60 inches 5'0" Weight 190.00 lb BMI (Body Mass Index) 37.1 kg/m2 [place] Body Weight 100 lb Weight 86.184 kg BSA (Body Surface Area) 1.83 m2 04/28/2020 2:19pm BP Systolic 108 mmHg BP Diastolic 62 mmHg Heart Rate 91 /min O2 % BldC Oximetry 98 % Height 60 inches 5'0" Weight 186.00 lb BMI (Body Mass Index) 36.3 kg/m2 [place] Body Weight 100 lb Weight 84.370 kg BSA (Body Surface Area) 1.81 m2 Results Test Acquired Date Facility Test Result H/L Range Note Arterial Blood Gas 05/12/2020 [facility] Main Lab [address] [place] [address] [phone] ABG pH (Arterial) 7.419 units Normal 7.350-7.450 ABG Partial Pressure Co2 37.3 mmHg Normal 35.0-45.0 ABG Partial Pressure O2 70.7 mmHg Low 75.0-100.0 ABG Total Co2 24.7 mEq/L Normal 23.0-31.0 ABG Hco3 23.6 mEq/L Normal 22.0-26.0 ABG Base Excess -0.6 Normal -2.0-2.0 ABG Standard Hco3 24.0 mEq/L Normal 22.0-26.0 ABG O2 Saturation 94.7 % Low 95.0-99.0 ABG Site RT BRACHIAL Normal Prothrombin Time/Inr 04/22/2020 [facility] enter Main Lab [address] [place] [address] [phone] Prothrombin Time 13.0 seconds Normal 12.5-14.3 Inr 0.96 Normal 1 Laboratory test finding 04/22/2020 [facility] Main Lab [address] [place] [address] [phone] Angiotensin 1 Converting Enzym 38 U/L Normal 1 4-82 2 CBC With Differential 04/22/2020 [facility] Main Lab [address] [place] [address] [phone] White Blood Count 11.7 10 High 4.0-10.0 Red Blood Count 5.45 10 High 4.00-5.40 Hemoglobin 13.6 g/dL Normal 12.0-15.5 Hematocrit 45.3 % Normal 36.0-47.0 Mean Corpuscular Volume 83.1 fl Normal 80.0-96.0 Mean Corpuscular Hemoglobin 25.0 pg Low 27.0-33.0 Mean Corpuscular HGB Conc 30.0 g/dL Low 32.0-36.5 Red Cell Distribution Width 15.3 % High 11.5-14.5 Platelet Count, Automated 194 10 Normal 150-450 Neutrophils % 76.7 % High 36.0-66.0 Lymph % 11.2 % Low 24.0-44.0 Ida % 8.9 % High 0.0-5.0 Eos % 1.6 % Normal 0.0-3.0 Baso % 0.9 % Normal 0.0-1.0 Immature Granulocyte % 0.7 % Normal 0-3.0 Nucleated Red Blood Cell % 0.0 % Normal 0-0 Neutrophils # 9.0 10 High 1.5-8.5 Lymph # 1.3 10 Low 1.5-5.0 Ida # 1.0 10 High 0.0-0.8 Eos # 0.2 10 Normal 0.0-0.5 Baso # 0.1 10 Normal 0.0-0.2 Comprehensive Metabolic Profil 04/22/2020 [facility] Main Lab [address] [place] [address] [phone] Glucose, Fasting 146 mg/dL High 70-100 Blood Urea Nitrogen 19 mg/dL High 7-18 Creatinine For GFR 1.12 mg/dL Normal 0.55-1.30 Glomerular Filtration Rate 51.8 Normal >45 3 Sodium Level 138 mEq/L Normal 136-145 Potassium Serum 3.6 mEq/L Normal 3.5-5.1 Chloride Level 101 mEq/L Normal 98-107 Carbon Dioxide Level 31 mEq/L Normal 21-32 Anion Gap 6 mEq/L Low 8-16 Calcium Level 9.3 mg/dL Normal 8.8-10.2 Ast/Sgot 30 U/L Normal 7-37 Alt/SGPT 31 U/L Normal 12-78 Alkaline Phosphatase 213 U/L High 45-117 Bilirubin,Total 1.5 mg/dL High 0.2-1.0 Total Protein 8.0 GM/DL Normal 6.4-8.2 Albumin 3.7 GM/DL Normal 3.2-5.2 Albumin/Globulin Ratio 0.9 Low 1.2-2.2 Laboratory test finding 04/22/2020 [facility] Main Lab [address] [place] [address] [phone] Bedside Glucose 168 mg/dL High 80-115 Culture Fungus Misc 04/22/2020 [facility] nter Main Lab [address] [place] [address] [phone] Fungal Smear Testing performe <SEE NOTE> 4 Fungal Culture Other Source Testing performe <SEE NOTE> 5 Acid Fast Smear & Culture(Afb) Sendout 04/22/2020 [facility] Main Lab [address] [place] [address] [phone] Afb Smear Due to limited s <SEE NOTE> 6 Afb Culture Testing performe <SEE NOTE> 7 Cell Count/Diff CSF (Auto Count) 04/22/2020 [facility] Main Lab [address] [place] [address] [phone] Neutrophils, Bal 5 % Normal Lymphocytes, Bal 25 % Normal Monocytes/Macrophages, Bal 70 % Normal Cell Count Broncho Lavage 04/22/2020 [facility] Main Lab [address] [place] [address] [phone] Source LEFT UPPER LOBE Normal 8 Color PINK High Colorless Appearance CLOUDY High Clear Bal WBC 53 CELLS/uL High 0-10 Laboratory test finding 04/22/2020 [facility] Main Lab [address] [place] [address] [phone] Afb Smear & Culture Due to limited s <SEE NOTE> 9 Bal Culture And Gram Stain 04/22/2020 [facility] Main Lab [address] [place] [address] [phone] Gram Stain (SEE NOTE) Normal 10 Bal Culture FULL REPORT IN L <SEE NOTE> Normal 11 Laboratory test finding 04/22/2020 [facility] Lab [address] [place] [address] [phone] Non Leader Assembler/Cytology Req For Servi (SEE NOTE) 12, 13 Laboratory test finding 04/22/2020 [facility] Lab [address] [place] [address] [phone] Non Leader Assembler/Cytology Req For Servi (SEE NOTE) 14 Laboratory test finding 04/22/2020 [facility] Lab [address] [place] [phone] Pathology Request For Service (SEE NOTE) 15 Laboratory test finding 04/22/2020 [facility] Lab [address] [place] [address] [phone] Pathology Request For Service (SEE NOTE) 16 Laboratory test finding 04/22/2020 [facility] Lab [address] [place] [address] [phone] Non Leader Assembler/Cytology Req For Servi (SEE NOTE) 17 Laboratory test finding 04/22/2020 [facility] Lab [address] [place] [address] [phone] Non Leader Assembler/Cytology Req For Servi (SEE NOTE) 18 1 THERAPUTIC HUMAN INR VALUES INDICATIONS NORMAL RANGES PROPHYLAXIS/TREATMENT OF: VENOUS THROMBOSIS 2.0-3.0 PULMONARY EMBOLISM 2.0-3.0 PREVENTION OF SYSTEMIC EMBOLISM FROM: TISSUE HEART VALVES 2.0-3.0 ACUTE MYOCARDIAL INFARCTION 2.0-3.0 VALVULAR HEART DISEASE 2.0-3.0 ATRIAL FIBRILLATION 2.0-3.0 MECHANICAL VALVES(HIGH RISK) 2.5-3.5 RECURRENT MYOCARDIAL INFARCTION 2.5-3.5 2 Performed at: RN - [facility] [address] [id number] Golf Technician: Lily Weaver MD, Phone: [phone] 3 Units are mL/min/1.73 m2 Chronic Kidney Disease Staging per NKF: Stage I & II GFR >=60 Normal to Mildly Decreased Stage III GFR 30-59 Moderately Decreased Stage IV GFR 15-29 Severely Decreased Stage V GFR <15 Very Little GFR Left ESRD GFR <15 on BUMP GRADER OPERATOR 4 Testing performed at [facility] lab . Report copy to follow on a separate form. 06/06/20 REF LAB#:[id number] SIMA/Calcofluor preparatio No fungus observed. 5 Testing performed at [facility] . Report copy to follow on a separate form. 06/06/20 REF LAB#:[id number] FUNGUS CULTURE [facility] No Yeast or Mold Isolated after 4 weeks. 6 Due to limited sensitivity, smear results should be used as an adjunct in evaluating patient tuberculosis status. Cultural examination is highly recommended for clinical diagnosis. AFB smear [place] NEGATIVE (NO AFB Seen ) 7 Testing performed at [facility] . Report copy to follow on a separate form. 06/06/20 REF LAB#:[id number] FULL REPORT IN LAB NOTES ([facility] and [facility]). No Acid-Fast Bacilli Isolated after 6 Weeks. 8 BRON ALVEOLAR LAVAGE 9 Due to limited sensitivity, smear results should be used as an adjunct in evaluating patient tuberculosis status. Cultural examination is highly recommended for clinical diagnosis. AFB smear [place] NEGATIVE (NO AFB Seen ) 10 MANY RBCS FEW WBCS NO ORGANISMS SEEN 11 FULL REPORT IN LAB NOTES ([facility] and [facility]). NO GROWTH AEROBICALLY 12 will discuss at follow-up 13 SPECIMEN: Broncho alveolar lavage (right upper lobe) 2ml [place] SPECIMEN ADEQUACY: Satisfactory for evaluation CATEGORIZATION: Positive for Malignancy DESCRIPTIONS: Cellular specimen consiting of atypical cells exhibiting high n/c ratios and atypical nuclei with prominent macronucleoli. The background consists of bronchial cells, macrophages, scattered lyphocytes, and blood elements. COMMENTS: Please correlate with surgical case [id number]. 04/23/20201555 Signed SUKHI AWAD CT(ASCP) 04/23/2020 1036 (Prelim) Signed JYOTSNA SIDDIQUI MD 04/23/20201555 14 SPECIMEN: Broncho alveolar lavage (left upper lobe) 5ml [place] SPECIMEN ADEQUACY: Satisfactory for evaluation CATEGORIZATION: Positive for Malignancy DESCRIPTIONS: Scattered small groups of atypical cells exhibiting increased n/c ratios and muclei with prominent macronucleoli. The background consists of bronchial cells, scattered pulmonary macrophages and blood elements. COMMENTS: Please correlate with surgical case [id number]. 04/23/20201555 Signed SUKHI AWAD CT(ASCP) 04/23/2020 1116 (Prelim) Signed JYOTSNA SIDDIQUI MD 04/23/2020 1556 15 Addendum 3 Entered: 020-1145 PD-L1 KEYTRUDA shows tumor proportion score of 25%/Expression. Positive for BRAF Negative for ALK Negative for ROS1 Negative for KRAS Negative for EGFR See complete reports from [facility] 4/TR 05/18/2020 - 114 Addendum Signed__Julisa Rojas MD 05/18/2020 1145 Addendum 2 Entered: 05/15/2020-0659 PD-L1 KEYTRUDA shows tumor proportion score of 25%/Expression. Positive for BRAF Negative for ALK Negative for ROS1 Negative for KRAS See complete reports from [facility] 4/TR 05/15/2020 - 658 Addendum Signed__Julisa Rojas MD 05/15/202059 Addendum 1 Entered: 05/14/2020-0553 PD-L1 KEYTRUDA shows tumor proportion score of 25%/Expression. Positive for BRAF Negative for ROS1 Negative for KRAS ALK is pending, addendum will follow. See complete reports from [facility]. 05/14/2020552 Addendum Signed____ Julisa Cerda MD 05/14/2020552 FINAL DIAGNOSIS A - Lung, right upper lobe, transbronchial biopsy: Adenocarcinoma, moderately differentiated. -4/TR See comment. B - Lung, right lower lobe, transbronchial biopsy: Adenocarcinoma, moderately differentiated. See comment. C - Lung, left upper lobe, transbronchial biopsy: Adenocarcinoma, moderately differentiated. See comment. Comment: For specimens A-C, immunoinstains show that the tumor cells are positive for eric-cytokeratin and TTF-1, and negative for CD68, supporting the above diagnosis. Please contact the laboratory to request molecular testing, if clinically indicated. 04/24/2020 - 1115 CLINICAL DIAGNOSIS Abnormal chest x-ray 04/22/2020 - 1526 GROSS DIAGNOSIS A - Received in formalin labeled "right upper lobe biopsy" and consists of multiple fragments of garcia-red tissue measuring 0.4 x 0.2 x 0.2 cm. in aggregate. All in one. B - Received in formalin labeled "right lower lobe biopsy" and consists of three fragments of garcia tissue measuring 0.3 x 0.3 x 0.2 cm. in aggregate. All in one. C - Received in formalin labeled "left upper lobe biopsy" and consists of two fragments of garcia tissue measuring 0.5 x 0.3 x 0.2 cm. in aggregate. All in one. -SV 04/22/2020 - 1525 Signed JYOTNSA SIDDIQUI MD 04/24/2020 1115 16 FINAL DIAGNOSIS A - Lung, right upper lobe, transbronchial biopsy: Adenocarcinoma, moderately differentiated. -4/TR See comment. B - Lung, right lower lobe, transbronchial biopsy: Adenocarcinoma, moderately differentiated. See comment. C - Lung, left upper lobe, transbronchial biopsy: Adenocarcinoma, moderately differentiated. See comment. Comment: For specimens A-C, immunoinstains show that the tumor cells are positive for eric-cytokeratin and TTF-1, and negative for CD68, supporting the above diagnosis. Please contact the laboratory to request molecular testing, if clinically indicated. 04/24/20201114 CLINICAL DIAGNOSIS Abnormal chest x-ray 04/22/20201525 GROSS DIAGNOSIS A - Received in formalin labeled "right upper lobe biopsy" and consists of multiple fragments of garcia-red tissue measuring 0.4 x 0.2 x 0.2 cm. in aggregate. All in one. B - Received in formalin labeled "right lower lobe biopsy" and consists of three fragments of garcia tissue measuring 0.3 x 0.3 x 0.2 cm. in aggregate. All in one. C - Received in formalin labeled "left upper lobe biopsy" and consists of two fragments of garcai tissue measuring 0.5 x 0.3 x 0.2 cm. in aggregate. All in one. -SV 04/22/2020 - 1525 Signed JYOTSNA SIDDIQUI MD 04/24/2020 1115 17 SPECIMEN: FNA Lef t hilar lymph node Cytolyt and prepared slides received SPECIMEN ADEQUACY: Satisfactory for evaluation CATEGORIZATION: Positive for Malignancy DESCRIPTIONS: Scattered clusters small groups and single atypical cells noted exhbiting atypical nuclei with prominent single and multiple nucleoli. The background consists of bronchial cells, pulmonary macrophages, scattere lymphocytes and red blood cells. COMMENTS: Please correlate with surgical case [id number]. 04/23/2020 - [address](ASCP) 04/23/2020 1005 (Prelim) Signed JYOTSNA SIDDIQUI MD 04/23/20201555 18 SPECIMEN: Bronchi al brushing (right upper lobe) Prepared slides and brush in vial received SPECIMEN ADEQUACY: Satisfactory for evaluation CATEGORIZATION: Atypical cytology DESCRIPTIONS: Scant atypical cells exhbiting variation in size and nuclei with prominent nucleoli in a background of brochial cells and blood elements. Please correlate with surgical case [id number]. COMMENTS: 04/23/2020 - [address](ASCP) 04/23/2020 1149 (Prelim) Signed JYOTSNA SIDDIQUI MD 04/23/2020 1555 Procedures Date Code Description Status 04/22/2020 97588 With Endobronchial Ultrasound Gu ided Completed 04/22/2020 10327 Bronchoscopy, W/Lopez sbronchial Needle Aspiration Biopsy Addl Lobe Completed 04/22/2020 64422 Bronchoscopy W/Biopsy Completed 04/22/2020 78083 Bronchoscopy W/Bronchial Alveola r Lavage Completed 04/22/2020 42133 Bronchoscopy W/Brushing Or Prote cted Brushings Completed 04/10/2020 45022 Airway Inhalation Treatment Comp leted Medical Devices Description No Information Available Encounters Type Date Location Provider Dx Diagnosis Office Visit 05/28/2020 10:45a [facility] R tavo Tran M.D. 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 05/28/2020 C34.12 Malignant neoplasm of upper lobe , left bronchus or lung Alfonso Tran M.D. 05/28/2020 C77.1 Secondary and unspec ified malignant neoplasm of intrathoracic lymph nodes Alfonso Tran M.D. 05/28/2020 I31.9 Disease of pericardium, unspecif ied Alfonso Tran M.D. 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 05/28/2020 E11.9 Type 2 diabetes mellitus without complications Alfonso Tran M.D. 05/28/2020 I82.402 Acute embolism and t hrombosis of unspecified deep veins of left lower extremity Alfonso Tran M.D. 05/28/2020 I10 Essential (primary) hypertension Alfonso Tran M.D. 05/28/2020 Z86.711 Personal history of pulmonary em bolism Alfonso Tran M.D. 04/28/2020 Z87.891 Personal history of nicotine dep endence Jannet Zamora M.D. 04/28/2020 C34.11 Malignant neoplasm of upper lobe , right bronchus or lung Jannet Zamora M.D. 04/28/2020 C34.12 Malignant neoplasm of upper lobe , left bronchus or lung Jannet Zamora M.D. 04/28/2020 C77.1 Secondary and unspec ified malignant neoplasm of intrathoracic lymph nodes Jannet Zamora M.D. 04/22/2020 R91.8 Other nonspecific abnormal findi ng of lung field Jannet Zamora M.D. 04/10/2020 R91.8 Other nonspecific abnormal findi ng of lung field Jannet Zamora M.D. 04/10/2020 Z87.891 Personal history of nicotine dep endence Jannet Zamora M.D. 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 neoplasm of other specified sites * E11.9 Type 2 diabetes mellitus without complications * I82.402 Acute embolism and thrombosis of unspecified deep veins of left lower extremity * I10 Essential (primary) hypertension * Z86.711 Personal history of pulmonary embolism Functional Status Description No Information Available Mental Status Description No Information Available Referrals Refer to Dr Reason for Referral Status Appt Date Radiology/Procedure [facility] auth [id number] Closed Radiology/Procedure [facility] auth [id number] and [id number] Closed Leona Hernández M.D. newly diagnosed metastatic adenocarcinoma Closed 05/14/2020 [facility] Oncology [facility] H[facility]ology [address] [place] [address] [phone] [place]iology/[place] [address],2 3,24,25,26,28.29,32,33,52,53,54 and S2900 Closed
--- OUTSIDE RECORDS SUMMARY | 2020-08-05 06:59 | CCD ---
Author Author [facility] Organization [facility] Address [address] [facility] [address] [facility] [address] [place] [address] Phone Care Team Providers Care Funder Name Role Phone Koffi FERNANDEZ, Ramya Guzman Unavailable [phone] Amina FERNANDEZ, Matt Moreno PP [phone] Landy Eduar Unavailable [phone]. [phone] Rony FERNANDEZ, Michael Unavailable [phone] Mitsy FERNANDEZ, Lizandro Unavailable Unavailable Lucia FERNANDEZ, Nicolas Griffin Unavailable Unavailable Reason for Referral No Reason for Referral Recorded Problems Includes: Active, inactive, and resolved Problems All Visits Onset Date - Time Resolved Date - Time Provider Co ndition Status Anxiety Disord Due To Gen Medical Cond, Generalized An xiety 06/27/2020 - 12:00AM Matt Huynh MD Active Note: Unchanged Anxiety Disorder Due To Gen Medical Condition, Panic A ttacks 06/27/2020 - 12:00AM Matt Huynh MD Active Note: Unchanged 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 05/30/2020 - 1 2:00AM Matt Huynh MD Active Note: Unchanged Obesity Morbid Due To Excess Calories 07/01/2019 - 12:00AM Matt Huynh MD Active Note: Unchanged Vasovagal Syncope 04/26/2016 - 12:00AM Matt gardiner MD Active Note: Unchanged Tachycardia Supraventricular 12/15/2015 - 12:00AM Peggy Gibson RPA Active Note: Unchanged - Rate contr olled on Metoprolol Difficulty Swallowing (Dysphagia) 08/07/2014 - 12:00AM Marina Gibson RPA Active Note: Unchanged Esophageal Reflux 08/07/2014 - 12:00AM Matt gardiner MD Active Note: Unchanged - Mod HH and reflux on UGI Major Depression Chronic 06/17/2014 - 12:00AM Marina Gibson [facility] Active Note: Unchanged Diabetes Mellitus Type 2 06/17/2014 - 12:00AM Marina Georgeing RPA Active Note: Unchanged Psoriasis 06/17/2014 - 12:00AM Marina Gibson [facility] Active Note: Unchanged Sarcoidosis 06/17/2014 - 12:00AM Marina Gibson [facility] Active Note: Unchanged Plan of Treatment Care Programs [facility] Future Appointments Date Time Location Provider followup 07/07/2020 11:45AM [facility] Matt Huynh MD Findings Encounter Date Follow-up visit date 06/11/2020 [facility] phone call- NO C HARGE with Matt Huynh MD 06/11/2020 Transitional care management services with high comple xity decision making [facility] phone call- NO CHARGE with Matt Huynh MD 06/11/2020 Follow-up visit date 05/19/2020 at 1:[address] Huynh for TCM 7 [facility] phone call- NO CHARGE with Matt Huynh MD 05/19/2020 Transitional care management services wi th high complexity decision making She will be seen by Lindsay on 05/19/2020 at 1:45 p.m. This appt is within 2 business days of discharge which meets requirements for a TCM7 visit [facility] phone call- NO CHARGE with Matt Huynh MD 05/19/2020 Discussed treatment plan with the odette ent. She is nontoxic and without fever, chills or sweats. Concerned that infiltrates could be of a non-infectious origin. Will refer for STEPHNAIE appointment with pulmonology, she is agreeable. She will seek immediate treatment through an ER setting if her condition worsens followup with Marina Gibson RPA 04/07/2020 Tylenol for discomfort or fever. Push fluids and rest. CXR pending. Will treat with levaquin and start breo and likely continue mcfp. See back in 1 month. Call if persistent or high fever, increased work of breathing, persistent pain, if sxs not improving, or if concerned [facility] Tylenol for discomfort or fever. Push fluids and rest. Will treat as above. No changes to medical regimen. Call if persistent or high fever, increased work of breathing, persistent pain, if sxs not improving, or if concerned. See back in 2-4 weeks to ensure resolution in symptoms incident to previous visit- with [facility] 12/05/2019 Tylenol for discomfort or fever. Push fluids and rest. Call if persistent or high fever, increased work of breathing, persistent pain, if sxs not improving, or if concerned [facility] Following clinical practice guideline A DA/EASD 2012 Position Statement and the Standards of Medical Care in Diabetes-2015 ADA. Individualized more or less stringent management goals(HbA1c 6.5%-8.0%, fasting JE317-292 mg/dL and ppBG 175-225mg/dL) were reviewed with the pt after assessing attitude, motivation, potential risks, disease duration, life expectancy,and comorbiditities. Will increase lantus to 45 units in the morning and focus on improved diet with various suggestions given today. Recheck a1c in 3 months incident to previous visit- with Marina Gibson [facility] 12/24/2018 Treatment goals and the natural histor y of the disease were reviewed with the patient. >50% of visit spent in counseling and discussion. Warning signs of worsening psychological function were discussed with the patient who was instructed to notify the office or seek medical attention for any serious deterioration. I clearly outlined my treatment limits as a non-psychiatrist and gave examples when a referral would be appropriate. Will plan to add on wellbutrin to viibryd to see if this can help with emotional lability. She declines counseling. She will follow up in 6-8 weeks to let us know how she is doing. In regards to diabetes, will increase insulin to 45units and improve upon dietary choices. See back in 4-6 months for annual visit with fasting labs prior followup with Marinaisabela Gibson [facility] 12/26/2017 Referred elsewhere for physical therapy service sick v isit with Matt Huynh MD 04/14/2017 Treatment goals and the natural histor y of the disease were reviewed with the patient. >50% of visit spent in counseling and discussion. Warning signs of worsening psychological function were discussed with the patient who was instructed to notify the office or seek medical attention for any serious deterioration. I clearly outlined my treatment limits as a non-psychiatrist and gave examples when a referral would be appropriate. Given continuation of symptoms and lack of response to higher dose Viibryd, suggest referral to psychiatry. Patient declines counseling. Will begin referral to telehealth and continue viibryd for the time being. See back in 3-4 months for follow up or sooner if issues arise followup with Marina Gibson RPA 10/12/2016 Treatment goals and the natural histor y of the disease were reviewed with the patient. >50% of visit spent in counseling and discussion. Warning signs of worsening psychological function were discussed with the patient who was instructed to notify the office or seek medical attention for any serious deterioration. I clearly outlined my treatment limits as a non-psychiatrist and gave examples when a referral would be appropriate. Strongly urged counseling services, which she declines today. Therefore, will increase viibryd to 40mg daily (samples given) and follow up at next visit. See sooner if issues arise. She expressed good understanding sick visit with Marina Gibson RPA 08/24/2016 Aspirin to be held for 1 week prior to the procedure Pre-op consult for surgery with Marina Gibson RPA 04/20/2016 The Preoperative History and Physical c ompleted as above. >4 METs of activity. May proceed with the planned procedure. Chronic medical problems are stable and controlled. Routine perioperative care recommended Pre-op consult for surgery with Marina Gibson RPA 04/20/2016 History of fundoscopic exam through dilated pupils was normal 01/28/2016 [Patient Encounter] with Matt Huynh MD 01/29/2016 Patient doing well post hospitalizatio n. We will plan to continue discharge medications as outlined and keep follow up with [facility] in 2 weeks. Recommended to seek prompt medical attention if any return in symptoms. She expressed good understanding. Keep next Transitional Care Management HIGH comple xity with Marina Gibson RPA 12/15/2015 Patient making good improvement in sym ptoms with antibiotic therapy and therefore will continue until gone. We reviewed signs and symptoms of furthering disease/infection and she is to seek prompt medical attention if such ensue. She expressed good understanding. She may advance diet as tolerated and return to prehospital medications at this point. Has appointment with Dr. Jay and I think it reasonable to update colonoscopy once symptoms resolve as she is due this year for screening. Keep next or see sooner if issues arise Transitional Care Managment MODERATE complexity with Marina Gibson [facility] 07/14/2015 Reassurance given to patient that this does not appear to be temporal arteritis and she does not require prednisone taper or further workup. Subconjunctival hemorrhage appears to be resolving. Will continue to monitor symptoms and follow up with worsening or persistent symptoms, questions or concerns. Otherwise keep next sick visit with Marinaisabela Gibson [facility] 12/22/2014 Ordered elevate head of bed followup with Matt tee MD 08/28/2014 Ordered referral by mental health counselor FREEDOM abbasi with Matt Huynh MD 08/28/2014 Ordered psychiatric diagnostic evaluation which has a lready been set up followup with Matt Huynh MD 08/07/2014 Treatment goals and side effects revie wed with patient including but not limited to headache, N/V, palpitations, dyspepsia, and excessive nervousness. > 50% of 90 minute visit spent counseling. I clearly outlined my treatment limits as a non-psychiatrist and gave examples when a referal would be appropriate. Recommended counseling which she declines today. Will plan to cross taper fluoxetine and begin nortriptyline as above. See back in 2-4 weeks or sooner if issues arise new patient with Marina Gibson [facility] 06/17/2014 Assessments Includes: Assessments for all patient encounters Findings Encounter Date Generalized anxiety disorder sick visit with Matt gardiner MD 06/27/2020 Panic disorder without agoraphobia sick visit with Matt Hendrix MD 06/27/2020 Adjustment disorder with anxiety Transitional Care Man agement HIGH complexity with Matt Huynh MD 06/11/2020 Chronic major depression Transitional Care Management HIGH complexity with Matt Hyunh MD 06/11/2020 Malignant lung neoplasm (non-small cell) stage IV Lopez sitional Care Management HIGH complexity with Matt Huynh MD 06/11/2020 Supraventricular tachycardia Transitional Care Managem ent HIGH complexity with Matt Huynh MD 06/11/2020 Adenocarcinoma of the lung with metastasis Hilum and pericardium Transitional Care Management HIGH complexity with Matt Huynh MD 05/19/2020 Type 2 diabetes mellitus - uncomplicated , controlled by insulin And multiple medications. We'll have to watch carefully during this time as she's undergoing workup for advanced adenocarcinoma the lung Transitional Care Management HIGH complexity with Matt Huynh MD 05/19/2020 Pneumonia with a possible non-infectiou s origin. Not responsive to oral abx, most recently levaquin followup with Marina M Gibson RPA 04/07/2020 Pneumonia with likely underlying COPD sick visit with Marina M Gibson RPA 03/02/2020 Deltoid muscle strain ; left sick visit with Marina M Gibson RPA 12/19/2019 Pneumonia which is resolved sick visit with Marina M Gibson RPA 12/19/2019 Chronic major depression incident to previous visit- with Dy Ann Gibson RPA 12/05/2019 Right middle zone pneumonia incident to previous visit - with Marina M Gibson RPA 12/05/2019 Type 2 diabetes mellitus - uncomplicated, uncontrolled but improving incident to previous visit- with Marina M Gibson RPA 12/05/2019 Acute bronchitis sick visit with Marina M Gibson RPA 12/2019 Chronic major depression ANNUAL PE-followup exam/30 w ith Matt Huynh MD 07/01/2019 Essential hypertension ANNUAL PE-followup exam/30 w ith Mtat Huynh MD 07/01/2019 Morbid obesity due to excess calories ANNUAL PE-follow up exam/30 with Matt Huynh MD 07/01/2019 Routine senior citizen history and physical (65-80 yrs ) ANNUAL PE-followup exam/30 with Matt Huynh MD 07/01/2019 Type 2 diabetes mellitus - uncomplicated, uncontrolled ANNUAL PE-followup exam/30 with Matt Huynh MD 07/01/2019 Chronic major depression incident to previous visit- with Dy Ann Gibson RPA 12/24/2018 Esophageal reflux incident to previous visit- with Marina M Gibson RPA 12/24/2018 Psoriasis incident to previous visit- with Marina M Gibson RPA 12/24/2018 Type 2 diabetes mellitus - uncomplicated, uncontrolled incident to previous visit- with Marina M Gibson RPA 12/24/2018 Essential hypertension which is stable ANNUAL PE-follo wup exam/30 with Matt Huynh MD 06/28/2018 Insulin-treated, non-insulin dependent diabetes mellit us which is stable ANNUAL PE-followup exam/30 with Matt Huynh MD 06/28/2018 Mixed hyperlipoproteinemia which is stable ANNUAL PE-f ollowup exam/30 with Matt Huynh MD 06/28/2018 Psoriasis vulgaris which is inadequately controlled AN NUAL PE-followup exam/30 with Matt Huynh MD 06/28/2018 Routine adult history and physical (18 - 64 yrs) ANNUA L PE-followup exam/30 with Matt Huynh MD 06/28/2018 Chronic major depression followup with Marina Georgeing RPA 0 12/26/2017 Type 2 diabetes mellitus - uncomplicated, uncontrolled followup with Marina Gibson RPA 12/26/2017 Chronic major depression which is well-controlled MADDIE AL PE-followup exam/30 with Matt Huynh MD 06/26/2017 Chronic reflux esophagitis which is well-controlled AN NUAL PE-followup exam/30 with Matt Huynh MD 06/26/2017 Psoriasis which is stable ANNUAL PE-followup exam/30 w ith Matt Huynh MD 06/26/2017 Routine adult history and physical (18 - 64 yrs) ANNUA L PE-followup exam/30 with Matt Huynh MD 06/26/2017 Type 2 diabetes mellitus - uncomplicated, controlled b y INSULIN ANNUAL PE- followup exam/30 with Matt Huynh MD 06/26/2017 Sprained lumbosacral joint sick visit with Matt gar MD 04/14/2017 Chronic major depression which is improving followup w ith Matt Huynh MD 02/17/2017 Essential hypertension which is well-controlled follow up with Matt Huynh MD 02/17/2017 Possible restrictive lung disease Likely due to body habitus followup with Matt Huynh MD 02/17/2017 Supraventricular tachycardia which is stable followup with Matt Huynh MD 02/17/2017 Type 2 diabetes mellitus - uncomplicated, controlled b y INSULIN followup with Matt Huynh MD 02/17/2017 Chronic major depression followup with Marina Georgeing RPA 0 10/12/2016 Chronic major depression sick visit with Marina M Gibson RPA 08/24/2016 Depression with anxiety sick visit with Marina M [facility] 08/24/2016 Chronic reflux esophagitis ANNUAL PE-followup exam/30 with Matt Huynh MD 06/20/2016 Essential hypertension ANNUAL PE-followup exam/30 w jenise Matt Huynh MD 06/20/2016 Mixed hyperlipoproteinemia which is stable ANNUAL PE-f ollowup exam/30 with Matt Huynh MD 06/20/2016 Routine adult history and physical (18 - 64 yrs) ANNUA L PE-followup exam/30 with Matt Huynh MD 06/20/2016 Type 2 diabetes mellitus - uncomplicated, controlled b y INSULIN ANNUAL PE- followup exam/30 with Matt Huynh MD 06/20/2016 Sprain of the left ankle sick visit with Matt santiago MD 04/26/2016 Vasovagal syncope sick visit with Matt Ruiz 04/26/2016 Type 2 diabetes mellitus which is well-controlled Pre- op consult for surgery with Marina M Gibson RPA 04/20/2016 Working diagnosis of visit for: preoperative exam Pre- op consult for surgery with Marina M [facility] 04/20/2016 Chronic major depression which is well-controlled foll owup with Marina M Gibson RPA 02/12/2016 Esophageal reflux which is well-controlled followup with Dya na M [facility] 02/12/2016 Type 2 diabetes mellitus which is improving followup with Dy Ann [facility] 02/12/2016 Supraventricular tachycardia which is resolved Transit ional Care Management HIGH complexity with Marina M [facility] 12/15/2015 Type 2 diabetes mellitus - uncomplicated, uncontrolled followup with Matt Huynh MD 10/29/2015 Diverticulitis of colon without perforation or abscess which is improving Transitional Care Managment MODERATE complexity with Marina M Gibson RPA 07/14/2015 Essential hypertension which is stable ANNUAL PE-follo wup exam/30 with Matt Huynh MD 06/16/2015 Normal routine history and physical adult ANNUAL PE-fo llowup exam/30 with Matt Huynh MD 06/16/2015 Psoriasis ANNUAL PE-followup exam/30 with Matt Huynh MD 06/16/2015 Type 2 diabetes mellitus - uncomplicated, uncontrolled ANNUAL PE-followup exam/30 with Matt Huynh MD 06/16/2015 Depression with anxiety which is mildly exacerbated fo llowup with Matt Huynh MD 02/16/2015 Essential hypercholesterolemia followup with Matt gardiner MD 02/16/2015 Type 2 diabetes mellitus - uncomplicated, controlled w hich is stable followup with Matt Huynh MD 02/16/2015 Subconjunctival hemorrhage in the right eye sick visit with Marina Georgeing RPA 12/22/2014 Chronic major depression , improving followup with Marina M M anning RPA 10/31/2014 Esophageal reflux which is well-controlled followup with Heather Georgeing RPA 10/31/2014 Type 2 diabetes mellitus followup with Marina M Gibson RPA 0 10/31/2014 Chronic major depression followup with Matt robert MD 08/28/2014 Esophageal reflux followup with Matt Huynh MD 08/28/2014 Type 2 diabetes mellitus which is inadequately control led followup with Matt Huynh MD 08/28/2014 Chronic major depression which is improving followup w ith Matt Huynh MD 08/07/2014 Esophageal reflux followup with Matt Huynh MD 08/07/2014 Possible esophageal stricture followup with Matt oseguera MD 08/07/2014 Chronic major depression followup with Marina M Gibson RPA 0 07/22/2014 Chronic major depression new patient with Marina M Gibson RP A 06/17/2014 Psoriasis new patient with Marina M Gibson RPA 03/2014 Sarcoidosis new patient with Marina M Gibson RPA 03/2014 Type 2 diabetes mellitus new patient with Marina M Gibson RP A 06/17/2014 Instructions Instructions not supported for this document typeNo Instructions Recorded Medical Equipment - Implanted Devices Includes: Current and historical DevicesNo Medical Equipment Recorded Medications Includes: Current and historical Medications Current Medications (continue as prescribed) LORazepam 0.5 MG Oral Tablet 06/27/2020 Provider: Matt Huynh MD Diagnosis: 1 PO QID prn #: [id number] MDD=4 traZODone HCl 50 MG Oral Tablet 06/27/2020 Provider : Matt Huynh MD Diagnosis: 1 PO QHS Accu-Chek Guide w/Device Kit 06/19/2020 Provider: Matt Huynh MD Diagnosis: as directed tests qd E11.9 Accu-Chek FastClix Lancets Miscellaneous 06/19/2020 Provider: Matt Huynh MD Diagnosis: test qd E11.9 Accu-Chek Guide In Vitro Strip 06/19/2020 Provider: Matt Huynh MD Diagnosis: as directed Tests qd E11.9 Basaglar KwikPen 100 UNIT/ML Subcutaneous Solution Pen-injec tor 02/11/2020 Provider: Marina Gibson RPA Diagnosis: as directed 45 units SQ daily or as directed MDD=60 units Jardiance 10 MG Oral Tablet 02/05/2020 Provider: Marina Gibson RPA Diagnosis: 1 PO QD Metoprolol Succinate ER 50 MG Oral Tablet Extended Release 2 4 Hour 02/05/2020 Provider: Marina Gibson RPA Diagnosis: 1 PO QD BD Pen Needle Isabel U/F 32G X 4 MM Miscellaneous 01/24/2020 Provider: Marina Gibson RPA Diagnosis: as directed use with Victoza pen BID hydroCHLOROthiazide 12.5 MG Oral Tablet 01/20/2020 Provider: Marina Gibson RPA Diagnosis: 1 PO QD Viibryd 40 MG Oral Tablet 11/20/2019 Provider: Marina Gibson RPA Diagnosis: 1 PO QD Ozempic (0.25 or 0.5 MG/DOSE) 2 MG/1.5ML Subcutaneous Solution Pen-injector 09/26/2019 Provider: Matt Huynh MD Diagnosis: as directed 0,25 SQ weekly x4 wks then 0.5mg SQ weekly Lovastatin 20 MG Oral Tablet 09/23/2019 - 09/17/2020 Provide r: Matt Huynh MD Diagnosis: 1 PO QPM Pantoprazole Sodium 40MG Oral Tablet Delayed Release 019 Provider: Matt Huynh MD Diagnosis: Gastro-esophageal re flux disease without esophagitis 1 PO QD Microlet Lancets Miscellaneous 01/25/2019 Provider: Marina Gibson RPA Diagnosis: Evlie Microlet 2 Lancing device with 50 lancets Calcitrene 0.005% External Ointment 06/28/2018 Prov ider: Matt Huynh MD Diagnosis: apply bid to affected area Aspirin 81 MG OR TABS 06/17/2014 Provider: Diagnosis: Past Medications on file OneTouch Delica Lancets 33G Miscellaneous 06/19/2020 - 06/19 Provider: Matt Huynh MD Diagnosis: as directed Test qd e11.9 OneTouch Verio In Vitro Strip 06/19/2020 - 06/19/2020 Provid er: Matt Huynh MD Diagnosis: as directed test qd E11.9 OneTouch Verio Flex System w/Device Kit 06/19/2020 - 020 Provider: Matt Huynh MD Diagnosis: as directed tests qd E11.9 LORazepam 0.5 MG Oral Tablet 06/11/2020 - 06/27/2020 Provide r: Matt Huynh MD Diagnosis: 1 PO QID prn #: [id number] MDD=4 predniSONE 20 MG Oral Tablet 04/07/2020 - 05/19/2020 Provide r: Marina Gibson RPA Diagnosis: 2 PO QD Azithromycin 250 MG Oral Tablet 04/07/2020 - 05/19/2020 Prov ider: Marina Gibson RPA Diagnosis: as directed Take 2 tabs PO x 1 day, then 1 tab PO daily x 4 days. Levaquin 500 MG Oral Tablet 03/02/2020 - 05/19/2020 Provider : Marina Gibson RPA Diagnosis: 1 PO QD Breo Ellipta 100-25 MCG/INH Inhalation Aerosol Powder Breath Activated 03/02/2020 - 03/30/2020 Provider: Diagnosis: 1 puff daily Enalapril Maleate 5 MG Oral Tablet 01/20/2020 - 06/11/2020 P rovider: Marina Gibson RPA Diagnosis: 1 PO QD Medrol 4 MG Oral Tablet Therapy Pack 12/19/2019 - 05/19/2020 Provider: Marina Gibson RPA Diagnosis: as directed per package instructions Levaquin 500 MG Oral Tablet 12/05/2019 - 05/19/2020 Provider : Marina Gibson RPA Diagnosis: 1 PO QD Breo Ellipta 100-25 MCG/INH Inhalation Aerosol Powder Breath Activated 12/05/2019 - 12/19/2019 Provider: Marina Gibson RPA Diagnosis: 1 puff daily Azithromycin 250 MG Oral Tablet 10/14/2019 - 12/05/2019 Prov ider: Marina Gibson [facility] Diagnosis: as directed Take 2 tabs PO x 1 day, then 1 tab PO daily x 4 days. Victoza 18 MG/3ML Subcutaneous Solution Pen-injector 020 - 06/11/2020 Provider: Matt Huynh MD Diagnosis: as directed - 1.2mg SQ QD Enalapril Maleate 5 MG Oral Tablet 07/29/2019 - 12/05/2019 P rovider: Matt Hunyh MD Diagnosis: 1 PO QD hydroCHLOROthiazide 12.5 MG Oral Tablet 07/29/2019 - 020 Provider: Matt Huynh MD Diagnosis: 1 PO QD Enalapril-hydroCHLOROthiazide 5-12.5MG Oral Tablet 9 - 05/19/2020 Provider: Marina Gibson [facility] Diagnosis: 1 PO QD Victoza 18MG/3ML Subcutaneous Solution Pen-injector 03/18/20 19 - 07/01/2019 Provider: Marina Gibson [facility] Diagnosis: as directed - 1.2mg SQ QD Jardiance 10MG Oral Tablet 02/05/2019 - 12/19/2019 Provider: Matt Huynh MD Diagnosis: 1 PO QD Metoprolol Succinate ER 50MG Oral Tablet Extended Rele ase 24 Hour 02/05/2019 - 12/19/2019 Provider: Matt Huynh MD Diagnosis: 1 PO QD Basaglar KwikPen 100UNIT/ML Subcutaneous Solution Pen- injector 01/24/2019 - 12/19/2019 Provider: Matt Huynh MD Diagnosis: as directed 45 units SQ daily or as directed MDD=60 units Viibryd 40MG Oral Tablet 12/04/2018 - 10/14/2019 Provider: Matt Huynh MD Diagnosis: 1 PO QD BD Pen Needle Isabel U/F 32G X 4 MM Miscellaneous 11/20/2018 - 05/19/2019 Provider: Matt Huynh MD Diagnosis: as directed use with Victoza pen BID Lovastatin 20MG Oral Tablet 09/24/2018 - 09/23/2019 Provider : Matt Huynh MD Diagnosis: 1 PO QPM Pantoprazole Sodium 40MG Oral Tablet Delayed Release 019 - 07/01/2019 Provider: Matt Huynh MD Diagnosis: 1 PO QD Enalapril-Hydrochlorothiazide 5-12.5MG Oral Tablet 8 - 12/24/2018 Provider: Matt Huynh MD Diagnosis: 1 PO QD Lantus SoloStar 100UNIT/ML Subcutaneous Solution Pen-i njector 06/28/2018 - 01/24/2019 Provider: Matt Huynh MD Diagnosis: Type 2 diabetes denise itus without complications 45 units SC qpm or as directed (50U daily max) Clobetasol Propionate 0.05% EX OINT 04/02/2018 - 09/29/2018 Provider: Matt Huynh MD Diagnosis: aplly to affected area TID buPROPion HCl ER (XL) 150 MG OR TB24 02/28/2018 - 07/01/2019 Provider: Marina Gibson RPA Diagnosis: 1 tab QD x 3 days, then 1 tab QOD x 4 days, then off BuPROPion HCl ER (XL) 150MG Oral Tablet Extended Relea se 24 Hour 02/08/2018 - 02/28/2018 Provider: Matt Huynh MD Diagnosis: Major depressive dis order, recurrent, unspecified 2 PO QD Metoprolol Succinate ER 50MG Oral Tablet Extended Rele ase 24 Hour 02/08/2018 - 06/28/2018 Provider: Matt Huynh MD Diagnosis: 1 PO QD Jardiance 10MG Oral Tablet 02/08/2018 - 06/28/2018 Provider: Matt Huynh MD Diagnosis: 1 PO QD Victoza 18 MG/3ML SC SOPN 01/30/2018 - 12/24/2018 Provider: Marina Gibson RPA Diagnosis: as directed - 1.2mg SQ QD BuPROPion HCl ER (XL) 150MG Oral Tablet Extended Relea se 24 Hour 12/26/2017 - 02/08/2018 Provider: Marina Gibson RPA Diagnosis: Major depressive dis order, recurrent, unspecified as directed - 1 tab PO qd x 1 week, then increase to 2 tabs PO daily thereafter. Viibryd 40MG Oral Tablet 12/07/2017 - 06/28/2018 Provider: Matt Huynh MD Diagnosis: 1 PO QD BD Pen Needle Isabel U/F 32G X 4 MM MISC 10/25/2017 - 06/28/20 Provider: Matt Huynh MD Diagnosis: use with Victoza pen BID Enalapril-hydroCHLOROthiazide 5-12.5 MG TABS 10/02/2017 - Provider: Matt Huynh MD Diagnosis: 1 PO QD Lovastatin 20 MG OR TABS 09/26/2017 - 06/28/2018 Provider: Matt Huynh MD Diagnosis: 1 PO QPM Pantoprazole Sodium 40 MG OR TBEC 07/24/2017 - 06/28/2018 Pr ovider: Matt Huynh MD Diagnosis: Ferrous Gluconate 324 (37.5 Fe)MG Oral Tablet 07/07/2017 - 1 08/29/2017 Provider: Matt Huynh MD Diagnosis: 1 PO QD Lantus SoloStar 100 UNIT/ML SC SOPN 06/19/2017 - 06/28/2018 Provider: Marina Gibson RPA Diagnosis: 45 units SC qpm or as directed (50U daily max) Metoprolol Succinate ER 50 MG Tablet Extended Release 24 Hour 02/17/2017 - 02/08/2018 Provider: Matt Huynh MD Diagnosis: 1 PO QD Jardiance 10 MG Tablet 02/17/2017 - 02/08/2018 Provider: Matt Huynh MD Diagnosis: 1 PO QD Gabapentin 100 MG Capsule 01/09/2017 - 02/17/2017 Provider: Marina Gibson RPA Diagnosis: 1 PO BID Victoza 18 MG/3ML Solution Pen-injector 01/06/2017 - 018 Provider: Marina Gibson RPA Diagnosis: as directed - 1.2mg SQ QD Pioglitazone HCl 15 MG OR TABS 12/26/2016 - 02/17/2017 Provi kedar: Matt Huynh MD Diagnosis: 1 PO QD Viibryd 40 MG Tablet 11/29/2016 - 12/07/2017 Provider: Marina Gibson RPA Diagnosis: 1 PO QD Victoza 18 MG/3ML Solution Pen-injector 11/09/2016 - 017 Provider: Marina Gibson RPA Diagnosis: as directed 1.2mg SQ QD Enalapril-Hydrochlorothiazide 5-12.5 MG Tablet 09/27/2016 - 10/02/2017 Provider: Matt Huynh MD Diagnosis: 1 PO QD Lovastatin 20 MG Tablet 09/27/2016 - 09/27/2016 Provider: Matt Huynh MD Diagnosis: 1 PO QPM Pantoprazole Sodium 40 MG OR TBEC 07/27/2016 - 08/07/2014 Pr ovider: Matt Huynh MD Diagnosis: Victoza 18 MG/3ML Solution Pen-injector 07/27/2016 - 017 Provider: Matt Huynh MD Diagnosis: as directed 1.2mg SQ QD OneTouch Delica Lancets Fine Miscellaneous (not specif ied) 07/15/2016 - 10/23/2016 Provider: Matt Huynh MD Diagnosis: tests bid E11.9 OneTouch Ultra Blue Strip 07/15/2016 - 10/23/2016 Provider: Matt Huynh MD Diagnosis: test bid E11.9 BD Pen Needle Isabel U/F 32G X 4 MM MISC 03/30/2016 - 12/19/19 20 Provider: Matt Huynh MD Diagnosis: use with Victoza pen BID Victoza 18 MG/3ML Solution Pen-injector 03/21/2016 - 016 Provider: Matt Huynh MD Diagnosis: as directed 1.2mg SQ QD Lantus SoloStar 100 UNIT/ML Solution Pen-injector 03/15/2016 - 06/26/2017 Provider: Marina Gibson RPA Diagnosis: 45 units SC qpm or as directed (50U daily max) Gabapentin 100 MG OR CAPS 01/04/2016 - 10/12/2016 Provider: Matt Huynh MD Diagnosis: Metoprolol Tartrate 50 MG OR TABS 01/04/2016 - 02/17/2017 Pr ovider: Matt Huynh MD Diagnosis: Pioglitazone HCl 15 MG Tablet 01/01/2016 - 01/01/2016 Provid er: Matt Huynh MD Diagnosis: 1 PO QD Metoprolol Tartrate 50 MG Tablet 12/15/2015 - 01/04/2016 Pro vider: Diagnosis: Gabapentin 100 MG Capsule 12/15/2015 - 01/04/2016 Provider: Diagnosis: BD Pen Needle Isabel U/F 32G X 4 MM MISC 11/06/2015 - 03/30/20 16 Provider: Matt Huynh MD Diagnosis: use with Victoza pen QD Victoza 18 MG/3ML Solution Pen-injector 10/29/2015 - 016 Provider: Matt Huynh MD Diagnosis: as directed 1.2mg SQ QD Viibryd 20 MG Tablet 10/29/2015 - 11/29/2016 Provider: Matt Huynh MD Diagnosis: 1 PO QD Nortriptyline HCl 10 MG Capsule 10/12/2015 - 12/15/2015 Prov ider: Matt Huynh MD Diagnosis: as directed take 2 at hs Enalapril-Hydrochlorothiazide 5-12.5 MG Tablet 09/29/2015 - 09/27/2016 Provider: Matt Huynh MD Diagnosis: 1 PO QD Lovastatin 20 MG Tablet 09/23/2015 - 09/27/2016 Provider: Matt Huynh MD Diagnosis: 1 PO QPM Pantoprazole Sodium 40 MG OR TBEC 07/29/2015 - 08/07/2014 Pr ovider: Matt Huynh MD Diagnosis: Dovonex 0.005 % Cream 06/16/2015 - 06/28/2018 Provider: Matt Huynh MD Diagnosis: apply bid to affected area Clobetasol Propionate 0.05 % Ointment 06/16/2015 - 8 Provider: Matt Huynh MD Diagnosis: aplly to affected area TID MetFORMIN HCl ER 500 MG Tablet, extended-release 24 ho ur 06/16/2015 - 01/01/2016 Provider: Matt Huynh MD Diagnosis: Type 2 diabetes denise itus without complications 3 PO QD Lantus SoloStar 100 UNIT/ML Solution Pen-injector 02/24/2015 - 02/12/2016 Provider: Matt Huynh MD Diagnosis: 46 units SC qpm or as directed (50U daily max) Lantus SoloStar 100 UNIT/ML Solution Pen-injector 11/29/2014 - 02/24/2015 Provider: Matt Huynh MD Diagnosis: as directed 46 units SC qpm or as directed Cipro 250 MG Tablet 11/05/2014 - 12/22/2014 Provider: Matt Huynh MD Diagnosis: 1 PO BID ReliOn Pen [place] 31G X 8 MM Miscellaneous (not speci fied) 10/31/2014 - 03/30/2016 Provider: Marina Gibson RPA Diagnosis: use one twice daily 250.00 Nortriptyline HCl 10 MG OR CAPS 10/20/2014 - 06/17/2014 Prov ider: Marina Gibson RPA Diagnosis: CHRONIC MAJOR DEPRES JOS-recurrent NOS Nortriptyline HCl 10 MG OR CAPS 10/20/2014 - 09/23/2015 Prov ider: Matt Huynh MD Diagnosis: CHRONIC MAJOR DEPRES JOS-recurrent NOS take 2 at hs Lovastatin 20 MG OR TABS 09/16/2014 - 09/23/2015 Provider: Matt Huynh MD Diagnosis: Enalapril-hydroCHLOROthiazide 5-12.5 MG TABS 08/28/2014 - Provider: Matt Huynh MD Diagnosis: Diabetes-type II w/o complication, controlled metFORMIN HCl ER 500 MG TB24 08/28/2014 - 08/28/2014 Provide r: Matt Huynh MD Diagnosis: Diabetes-type II w/o complication, controlled Enalapril-hydroCHLOROthiazide 5-12.5 MG TABS 08/28/2014 - Provider: Matt Huynh MD Diagnosis: Diabetes-type II w/o complication, controlled metFORMIN HCl ER 500 MG TB24 08/28/2014 - 06/16/2015 Provide r: Matt Huynh MD Diagnosis: Diabetes-type II w/o complication, controlled Cipro 250 MG OR TABS 08/18/2014 - 08/28/2014 Provider: Matt Huynh MD Diagnosis: Pantoprazole Sodium 40 MG OR TBEC 08/07/2014 - 08/07/2014 Pr ovider: Matt Huynh MD Diagnosis: Viibryd 20 MG OR TABS 07/22/2014 - 10/29/2015 Provider: Marina Gibson RPA Diagnosis: Depression Nortriptyline HCl 10 MG OR CAPS 06/17/2014 - 06/17/2014 Prov ider: Marina Gibson RPA Diagnosis: CHRONIC MAJOR DEPRES JOS-recurrent NOS Take 1 cap PO qpm x 1 week, then increas e to 2 caps PO qpm thereafter. In place of fluoxetine Lantus SoloStar 100 UNIT/ML SC SOPN 06/17/2014 - 11/05/2014 Provider: Diagnosis: 46 units SC qpm Lovastatin 20 MG OR TABS 06/17/2014 - 09/16/2014 Provider: Diagnosis: FLUoxetine HCl 10 MG OR CAPS 06/17/2014 - 07/22/2014 Provide r: Diagnosis: 5 caps PO daily Enalapril-hydroCHLOROthiazide 5-12.5 MG TABS 06/17/2014 - Provider: Diagnosis: Medications Administered Includes: Administered Medications in patient's chartNo Administered Medications Recorded Vital Signs Includes: Vital Signs from 06/27/2019 through 06/27/2020 Vital Name 06/27/2020 10:52A 06/11/2020 04:28P 05/19/2020 01:50P 04/07/2020 09:06A 03/02/2020 03:45P Blood Pressure Sitting L 100/60 BP Cuff Size Large Pulse Rate-Sitting (bpm) 114 90 90 110 Respiration Rate (breaths/min) 32 24 30 Height (in) 61 61 61 61 61 Weight (lb) 186.375 192 181 190 194 Body Mass Index (kg/m2) 35.2 36.3 34.2 35.9 3 6.7 Body Surface Area (m2) 1.83 1.86 1.81 1.85 1. 86 Blood Pressure Sitting (mmHg) 121/79 99/55 100/68 82/50 Oxygen Saturation (%) 98 95 93 Flow Rate (l/min) 2 (Nasal Cannula) FiO2 (%) 28 Temp-Oral (F) 98.7 Vital Name 12/19/2019 02:30P 12/05/2019 08:15A 10/14/2019 01:41P 07/01/2019 10:33A BP Cuff Size Regular Pulse Rate-Sitting (bpm) 88 88 80 78 Respiration Rate (breaths/min) 20 26 26 Height (in) 61 61 61 61 Weight (lb) 200.375 202 215 Body Mass Index (kg/m2) 37.9 38.2 40.6 Body Surface Area (m2) 1.89 1.90 1.95 Blood Pressure Sitting (mmHg) 98/50 143/77 Oxygen Saturation (%) 96 95 Temp-Oral (F) 98.2 97.3 Blood Pressure Sitting R 110/62 Results Includes: Results from 06/27/2019 through 06/27/2020 [facility] Ordered by Matt Huynh MD on 05/22/2020 [address] [place], [address] Collected: 05/22/2020 Reported: 05/22/2020 12:47 tel : ext. 1500 Urea Nitrogen 26 mg/dl (6-20) H (High) Note: Responsible Observer: KM Calcium 8.7 mg/dl (8.4-10.2) None Note: Responsible Observer: KM Chloride 102 mmol/L (96-108) None Note: Responsible Observer: KM CO2 27 mmol/L (23-31) None Note: Responsible Observer: KM Creatinine 1 mg/dl (0.5-1.2) None Note: Responsible Observer: KM EGFR - AfricanAm > 60 N/A (-) None Note: Responsible Observer: KM EGFR - Non AF AM 55 N/A (-) H (High) Note: Responsible Observer: KM Glucose 148 mg/dl (70-105) H (High) Note: Responsible Observer: KM Potassium 3.6 mmol/L (3.2-5.4) None Note: Responsible Observer: KM Sodium 136 mmol/L (133-145) None Note: Responsible Observer: KM Reviewed on 05/25/2020; All test result s are final unless otherwise noted. CBC [facility] Ordered by Matt Huynh MD on 05/22/2020 [address] [place], [address] Collected: 05/22/2020 Reported: 05/22/2020 12:47 tel :[phone] ext. 1500 GRAN# 4.2 /mm3 (2.5-7.5) None Note: Responsible Observer: KM GRAN% 73.9 % (50.0-75.0) None Note: Responsible Observer: KM HCT 37.1 % (37-47) None Note: Responsible Observer: KM HGB 12.3 g/dl (12.0-17.4) None Note: Responsible Observer: KM LY# 1.0 /mm3 (1.3-4.0) L (Low) Note: Responsible Observer: KM LY% 17.3 % (25-40.0) L (Low) Note: Responsible Observer: KM MCH 27.5 pg (27.0-34.0) None Note: Responsible Observer: KM MCHC 33.2 G/DL (30.0-35.0) None Note: Responsible Observer: KM MCV 82.8 um3 (76.0-94.0) None Note: Responsible Observer: KM MID# 0.5 /mm3 (0.1-0.7) None Note: Responsible Observer: KM MID% 8.7 % (3.0-7.0) H (High) Note: Responsible Observer: KM MPV 10.8 um3 (8.0-15.0) None Note: Responsible Observer: KM PLT 228 /mm3 (150-440) None Note: Responsible Observer: KM RBC 4.48 /mm3 (4.00-5.50) None Note: Responsible Observer: KM RDW 18.6 % (13.0-15.0) H (High) Note: Responsible Observer: KM WBC 5.6 /mm3 (4.0-10.0) None Note: Responsible Observer: KM Reviewed on 05/25/2020; All test result s are final unless otherwise noted. Hgba1c [facility] Ordered by Matt Huynh MD on 12/05/2019 [address] [place], [address] Collected: 12/05/2019 Reported: 12/05/2019 09:33 tel : ext. 1500 Hgba1c 7.3 na (5.0-6.0) H (High) Note: Responsible Observer: KM Reviewed by Marina Gibson RPA on 12/04; All test results are final unless otherwise noted. ACR [facility] Ordered by Matt Huynh MD on 07/01/2019 [address] [place], [address] Collected: 07/01/2019 Reported: 07/01/2019 13:41 tel :[phone] ext. 1500 ACR 35.7 ug/mg (0-30) H (High) Note: Responsible Observer: AW Micro alb 36.5 mg/L (0-30) H (High) Note: Responsible Observer: AW Urine Creat 102.4 mg/dl (34-300) None Note: Responsible Observer: AW Reviewed by Matt Huynh MD on 07/01/2019; All test results are final unless otherwise noted. CBC [facility] Ordered by Matt Huynh MD on 07/01/[address] [place] [address], [address] Collected: 07/01/2019 Reported: 07/01/2019 13:41 tel :[phone] ext. 1500 GRAN# 2.4 /mm3 (2.5-7.5) L (Low) Note: Responsible Observer: AW GRAN% 67.2 % (50.0-75.0) None Note: Responsible Observer: AW HCT 37.6 % (37-47) None Note: Responsible Observer: AW HGB 12.2 g/dl (12.0-17.4) None Note: Responsible Observer: AW LY# 1.0 /mm3 (1.3-4.0) L (Low) Note: Responsible Observer: AW LY% 26.9 % (25-40.0) None Note: Responsible Observer: AW MCH 27.4 pg (27.0-34.0) None Note: Responsible Observer: AW MCHC 32.5 G/DL (30.0-35.0) None Note: Responsible Observer: AW MCV 84.3 um3 (76.0-94.0) None Note: Responsible Observer: AW MID# 0.2 /mm3 (0.1-0.7) None Note: Responsible Observer: AW MID% 5.9 % (3.0-7.0) None Note: Responsible Observer: AW MPV 10.7 um3 (8.0-15.0) None Note: Responsible Observer: AW PLT 147 /mm3 (150-440) L (Low) Note: Responsible Observer: AW RBC 4.46 /mm3 (4.00-5.50) None Note: Responsible Observer: AW RDW 17.1 % (13.0-15.0) H (High) Note: Responsible Observer: AW WBC 3.6 /mm3 (4.0-10.0) L (Low) Note: Responsible Observer: AW Reviewed by Matt Huynh MD on 07/01/2019; All test results are final unless otherwise noted. CMP [facility] Ordered by Matt Huynh MD on 07/01/[address] [place] [address], [address] Collected: 07/01/2019 Reported: 07/01/2019 13:41 tel : ext. 1500 Albumin 4.2 g/dl (3.4-5.0) None Note: Responsible Observer: AW Alkaline Phos 179 IU/L (39-117) H (High) Note: Responsible Observer: AW ALT 16 IU/L (4-40) None Note: Responsible Observer: AW AST 22 IU/L (4-37) None Note: Responsible Observer: AW Urea Nitrogen 19 mg/dl (6-20) None Note: Responsible Observer: AW Calcium 9.4 mg/dl (8.4-10.2) None Note: Responsible Observer: AW Chloride 103 mmol/L (96-108) None Note: Responsible Observer: AW CO2 26 mmol/L (23-31) None Note: Responsible Observer: AW Creatinine 1 mg/dl (0.5-1.2) None Note: Responsible Observer: AW EGFR - AfricanAm > 60 N/A (-) None Note: Responsible Observer: AW EGFR - Non AF AM 56 N/A (-) H (High) Note: Responsible Observer: AW Glucose 126 mg/dl (70-105) H (High) Note: Responsible Observer: AW Potassium 4.1 mmol/L (3.2-5.4) None Note: Responsible Observer: AW Sodium 140 mmol/L (133-145) None Note: Responsible Observer: AW Total Bilirubin 1 mg/dl (0.0-1.2) None Note: Responsible Observer: AW Total Protein 7.2 g/dl (6.0-8.0) None Note: Responsible Observer: AW Reviewed by Matt Huynh MD on 07/01/2019; All test results are final unless otherwise noted. Lipid Panel [facility] Ordered by Matt Huynh MD on 07/01/2019 [address] [place], [address] Collected: 07/01/2019 Reported: 07/01/2019 13:41 tel :[phone] ext. 1500 Cholesterol 172 mg/dl (135-200) None Note: Responsible Observer: AW Dir. LDL 64 mg/dl (50-150) None Note: Responsible Observer: AW HDL 43 mg/dl (35-55) None Note: Responsible Observer: AW Triglycerides 169 mg/dl (40-150) H (High) Note: Responsible Observer: AW Reviewed by Matt Huynh MD on 07/01/2019; All test results are final unless otherwise noted. URINALYSIS [facility] Ordered by Matt Huynh MD on 07/01/[address] [place] [address], [address] Collected: 07/01/2019 Reported: 07/01/2019 13:41 tel :[phone] ext. 1500 BLOOD Negative Brayan/uL (NEGATIVE) None Note: Responsible Observer: AW CLARITY Clear N/A None Note: Responsible Observer: AW COLOR Yellow N/A (YELLOW) None Note: Responsible Observer: AW KETONES Negative N/A (NEGATIVE) None Note: Responsible Observer: AW LEUK Negative Priscilla/uL (NEGATIVE) None Note: Responsible Observer: AW NITRITES Negative N/A (NEGATIVE) None Note: Responsible Observer: AW PH 7.0 N/A (5-8) None Note: Responsible Observer: AW SPECIFIC GRAVITY 1.020 N/A (<1.030) None Note: Responsible Observer: AW URINE BILI Negative N/A (NEGATIVE) None Note: Responsible Observer: AW URINE GLUCOSE >=1000 mg/dL (NEGATIVE) None Note: Responsible Observer: AW URINE PROTEIN Negative mg/dL (NEGATIVE) None Note: Responsible Observer: AW UROBILINOGEN 1.0 EU/dL (0.0-1.0) None Note: Responsible Observer: AW Reviewed by Matt Huynh MD on 07/01/2019; All test results are final unless otherwise noted. Hgba1c [facility] Ordered by Matt Huynh MD on 07/01/[address] [place] [address], [address] Collected: 07/01/2019 Reported: 07/01/2019 13:41 tel : ext. 1500 Hgba1c 8.0 na (5.0-6.0) H (High) Note: Responsible Observer: AW Reviewed by Matt Huynh MD on 07/01/2019; All test results are final unless otherwise noted. History of Present Illness History of Present Illness not supported for this document typeNo History of Present Illness Recorded Social History Description Last Updated Currently 06/17/2014 No consumption of alcohol 06/17/2014 Not using drugs 06/17/2014 Tobacco non-user Quit 1990; 20 pack year history 03/2014 Smoking Status Unknown Procedures and Surgical History Includes: Procedures from 06/27/2019 through 06/27/2020 Procedures Code Diagnosis Performing Provider Service Location Service Date no charge procedure NC Encntr for surgical aftcr following surgery on the circ sys, Encounter for change or removal of drains, Malignant pleural effusion, Secondary malignant neoplasm of other specified sites Matt Huynh MD [facility], [facility] 06/11/2020 no charge procedure NC Malignant neoplasm o f unsp part of right bronchus or lung, Adjustment disorder with anxiety, Major depressive disorder, recurrent, unspecified, Supraventricular tachycardia Matt Huynh MD [facility], [facility] 06/11/2020 BMP-Basic Metabolic Profile 86727 Type 2 diabe deborah mellitus without complications, Gastro-esophageal reflux disease without esophagitis Matt Huynh MD [facility], [facility] 05/22/2020 CBC 17148 Type 2 diabetes denise itus without complications, Gastro-esophageal reflux disease without esophagitis Matt Huynh MD [facility], [facility] 05/22/2020 Venipuncture (routine) 05184 Type 2 diabetes m ellitus without complications, Gastro-esophageal reflux disease without esophagitis Matt Huynh MD [facility], [facility] 05/22/2020 Medication Reconciliation Incentive 1111F Kourtney gnant neoplasm of unsp part of right bronchus or lung, Type 2 diabetes mellitus without complications, Gastro- esophageal reflux disease without esophagitis Matt Huynh MD [facility], [facility] 05/19/2020 no charge procedure NC Malignant neoplasm o f unsp part of right bronchus or lung, Type 2 diabetes mellitus without complications, Gastro-esophageal reflux disease without esophagitis Matt Huynh MD [facility], [facility] 05/19/2020 HgbA1C 68712 Type 2 diabetes mellitus without complications Matt Huynh MD [facility] 12/05/2019 -collection of capillary blood (fingerstick, heel ) 30671 Type 2 diabetes mellitus without complications Matt Huynh MD [facility] 12/05/2019 Brief Emotional Behavior Assessment (Distinct Seperate servi ce-same day) 06996 Screening for Mental Health/Behavioral Disorder, Unspecified Matt Huynh MD [facility], [facility] 07/01/2019 ADMINISTRATION 2+ IMMUNIZATION (adult) 15709 Encounter for immunization Matt Huynh MD [facility], [facility] 07/01/2019 PREVNAR 13 -pneumococcal /otits media vaccine 18283 En counter for immunization Matt Huynh MD [facility], [facility] 07/01/2019 ADMINISTRATION 1-IMMUNIZATION(adult) 07870 Encounter f or immunization Matt Huynh MD [facility], [facility] 07/01/2019 FLUZONE/ multi-dose ( 6mos -older) 48243 Encounter for immunization Matt Huynh MD [facility], [facility] 07/01/2019 Urinalysis-Lab processed 87695 Type 2 diabetes mellitus without complications, Gastro-esophageal reflux disease without esophagitis Matt Huynh MD [facility], [facility] 07/01/2019 Fasting Lipid Profile 24466 Type 2 diabetes me llitus without complications, Gastro-esophageal reflux disease without esophagitis Matt Huynh MD [facility] 07/01/2019 CMP-Complete Metabolic Profile 60469 Type 2 di abetes mellitus without complications, Gastro-esophageal reflux disease without esophagitis Matt Huynh MD [facility], [facility] 07/01/2019 CBC 36044 Type 2 diabetes denise itus without complications, Gastro-esophageal reflux disease without esophagitis Matt Huynh MD [facility], [facility] 07/01/2019 Creatinine: URINE 46889 Type 2 diabetes denise itus without complications, Gastro- esophageal reflux disease without esophagitis Matt Huynh MD [facility], [facility] 07/01/2019 Mircro Alb urine 81286 Type 2 diabetes denise itus without complications, Gastro- esophageal reflux disease without esophagitis Matt Huynh MD [facility] 07/01/2019 HgbA1C 78881 Type 2 diabetes denise itus without complications, Gastro-esophageal reflux disease without esophagitis Matt Huynh MD [facility], [facility] 07/01/2019 Venipuncture (routine) 97467 Type 2 diabetes m ellitus without complications, Gastro-esophageal reflux disease without esophagitis Matt Huynh MD [facility], [facility] 07/01/2019 Surgical History Last Updated History of hysterectomy 197906/17/2014 History of cataract surgery ; Bilateral 2001,03/2014 History of inguinal hernia repair ; Right 1979 014 History of tonsillectomy 06/17/2014 Medical History Includes: Medical History in patient's chart Description Last Updated History of temporal arteritis 06/17/2014 History of pulmonary embolism 198806/17/2014 Family History Includes: Family History in patient's chart Description Last Updated Third sister in fair health ; Dementia. Neuropathy Brother in good health ; Hyperlipidemia 06/17/2014 Father at age 70's; Emphysema 06/17/2014 Mother at age 60; Vertigo, Congestive Heart Fail ure 06/17/2014 Second brother in fair health ; CVA 06/17/2014 Second sister in fair health : Alcoholic 06/17/2014 Sister ; Colon Cancer 06/17/2014 Third brother in fair health ; Carotid Artery Stenosis , Reflux 06/17/2014 Review of Systems Review of Systems not supported for this document typeNo Review of Systems Recorded Mental Status Mental Status not supported for this document type Description Anxiety Gradually progressive since las t visit. Happens intermittently but more prominently at night. She wakes up and just feels like "a [place] flowing through her ". Her notes that she is quite panicked and sometimes has trouble interacting with him. Doesn't feel particularly short of breath or in pain. Generally oxygen levels have been good when the doctor's offices and she is having less in the way of dyspnea pleuritic pain or fever chills or sweats. He is in active treatment now for known regional metastatic adenocarcinoma of the lung. Has a long-standing history of depression with anxiety. Takes lorazepam intermittently but doesn't like the way it makes her feel that she gets tired afterwards A desire to continue living Functional Status Functional Status not supported for this document typeNo Functional Status Recorded Physical Exam Physical Exam not supported for this document typeNo Physical Exam Recorded Immunizations Includes: Immunizations in patient's chart Vaccine Dose # Date Site Reaction(s) Status Source Influenza, seasonal, injectable 1 07/31/2001 Compl ete (Reported) Patient Influenza, seasonal, injectable 2 03/20/2012 Compl ete (Reported) Patient Influenza, seasonal, injectable 3 06/16/2015 Left Arm Complete (Administered) [facility] Influenza, seasonal, injectable 4 04/20/2016 Left Deltoid Complete (Administered) [facility] Note: VIS Given Influenza, seasonal, injectable 5 07/01/2019 Left Deltoid Complete (Administered) [facility] PCV (Pneumovax 23) 1 03/20/2012 Complete (Reported ) Patient PCV (Pneumovax 23) 2 02/17/2017 Complete (Reported ) Patient [id number] 1 07/01/2019 Right Deltoid Complete (Admin istered) [facility] Tdap (> 7 yrs) 1 02/17/2017 Complete (Reported) Adrian dudley Allergies Includes: Active, inactive, and resolved Allergies Substance Type Reaction Onset Date - Time Resolved Date - Ti me Status Remeron Intolerance Sleeplessness 06/17/2014 - 12:00AM Active Pravachol Intolerance Nausea, Vomiting, Diarrhea 06/17/2014 - 12:00A M Active Glucophage Allergy Nausea, Vomiting, Diarrhea 01/01/2016 - 12:00AM Active CeleXA Intolerance Jittery 06/17/2014 - 12:00AM Act smiley Encounters Includes: Encounters from 06/27/2019 through 06/27/2020 Encounter Provider Location Date Check-In Time Check-Out Time D iagnosis sick visit [facility] 06/27/2020 10:42AM 11:15AM Generalized Anxiety Disorder, Panic Disorder Without Agoraphobia Transitional Care Management HIGH complexity Matt gardiner MD [facility], [facility] 06/11/2020 4:16PM 5:12PM Lung Nemesio plasm Malignant (Non- small Cell) Stage IV, Tachycardia Supraventricular, Major Depression Chronic, Adjustment Disorder with Anxiety TCMNV phone call- NO CHARGE Matt Huynh MD 06/11/2020 05/19/2020 4:00PM 05/19/2020 11:59PM Transitional Care Management HIGH complexity Matt gardiner MD [facility], [facility] 05/19/2020 1:24PM 2:47PM Lung Nemesio plasm Adenocarcinoma Metastatic To, Diabetes Mellitus Type 2 - Uncomplicated, Controlled By Insulin TCMNV phone call- NO CHARGE Matt Huynh MD 05/19/2020 04/07/2020 11:49AM 04/07/2020 11:59PM followup [facility] 04/07 8:53AM 9:33AM Pneumonia [facility] 04/01/2020 020 4:11PM 03/02/2020 11:59PM sick visit [facility] 0 03/02/2020 3:29PM 4:03PM Pneumonia [[facility] En[facility] 03/02/2020 020 9:39AM 12/19/2019 11:59PM sick visit [facility] 0 12/19/2019 2:02PM 3:09PM Shoulder Strain Deltoid Musc le, [facility] 8:12AM 9:16AM Pneumonia Right Middle Zone, Diabetes Mellitus Type 2 - Uncomplicated, Uncontrolled, Major Depression [facility] 10/14/2019 1:28PM 1:58PM Acute Bronchitis [Patient Encounter] Matt Huynh MD 09/23/2019 1 09/01/2018 4:54PM 07/01/2019 11:59PM ANNUAL PE-followup exam Matt Huynh MD [facility] 07/01/2019 10:12AM 11:19AM Routine History and Physical Senior Citizen (65-80 Yrs), Diabetes Mellitus Type 2 - Uncomplicated, Uncontrolled, Essential Hypertension, Obesity Morbid Due To Excess Calories, Major Depression Chronic [Patient Encounter] Matt Huynh MD 07/01/2019 0 12/24/2018 8:40AM 12/24/2018 11:59PM Insurance Includes: Active Insurance Policies Plan Name Member ID Group # Subscriber Relationship Effective Da deborah 1 - R Insurance [id number] Mohamud Morejon Advance Directives Includes: Current Advance DirectivesNo Advance Directives Recorded Health Concerns Includes: Active Health ConcernsNo Active Health Concerns Recorded Goals Includes: Active GoalsNo Active Goals Recorded Interventions Includes: Interventions for active GoalsNo Interventions Recorded Evaluations & Outcomes Includes: Evaluations & Outcomes for active GoalsNo Outcomes Recorded
--- OUTSIDE RECORDS SUMMARY | 2020-08-05 06:59 | CCD | Continuity of Care Document ---
Author Mercedes Velarde M.D. Organization Unknown Address [address] [place] [address] Phone [phone] Care Team Providers Care [employer] Name Role Phone Matt Huynh M.D. AUTM [phone] Ghassan Rodriguez M.D. AUTM [phone] Leona Hernández M.D. AUTM [phone] Problems Description No Information Available Social History [...] x 3 days and stop 30tabs Jannet Terrell M.D. 04/28/2020 Levalbuterol HCL 0.63mg/3ML Nebuli zer 1 vial nebulized three times a day as needed 270ml R91.8 Jannet Ovalle M.D. 04/10/2020 Keytruda 100mg/4ML Solution 1injection every 3 weeks Unknown Trazodone HCL 50mg Tablets 1/2 tab by mouth every day Unknown Oxycodone-Acetaminophen 5-325mg Ta blets 1 tab by mouth four times a day as needed Unknown Lorazepam 0.5mg Tablets 1 tab by mouth four times a day as needed Unknown Levalbuterol HCL 0.63mg/3ML Nebuli zer 1 vial via neb three time a day Unknown Ozempic (0.25 Or 0.5 MG/Dose) 2mg/1.5ML Solution Pen-Inject Unknown Enalapril Maleate 5mg Tablets 1 tab by mouth everyday Unknown Viibryd 20mg Tablets 2 tabs by mouth everyday Unknown Metoprolol Succinate ER 50mg Tablets ER 24HR 1/2 tab by mouth Unknown Jardiance 10mg Tablets 1 tab by mouth everyday Unknown Pantoprazole Sodium 40mg Tablets D R 1 tab by mouth everyday Unknown Basaglar Kwikpen 100 Unit/ML Solution Pen-Inject 33 units Unknown Lovastatin 40mg Tablets 1/2 by mouth every day Unknown History Medications Prednisone 20mg Tablets [...] Available Vital Signs Date Vital Result Comment 06/29/2020 9:19am BP Systolic 130 mmHg BP Diastolic 68 mmHg Heart Rate 118 /min O2 % BldC Oximetry 99 % o2 sat on 2L Height 60 inches 5'0" Weight 187.00 lb BMI (Body Mass Index) 36.5 kg/m2 [place] Body Weight 100 lb Weight 84.823 kg BSA (Body Surface Area) 1.81 m2 05/28/2020 10:58am BP Systolic 120 mmHg BP Diastolic 60 mmHg Heart Rate 88 /min O2 % BldC Oximetry 95 % Room Air Height 60 inches 5'0" Weight 190.00 lb BMI (Body Mass Index) 37.1 kg/m2 [place] Body Weight 100 lb Weight 86.184 kg BSA (Body Surface Area) 1.83 m2 Results Test Acquired Date Facility Test Result H/L Range Note Arterial Blood Gas 05/12/2020 [facility] nter Main Lab [address] [place] [address] [phone] ABG pH (Arterial) 7.419 units Normal 7.350-7.450 [...] Site RT BRACHIAL Normal Prothrombin Time/Inr 04/22/2020 [facility] enter Main Lab [address] [place] [address] [phone] Prothrombin Time 13.0 seconds Normal 12.5-14.3 Inr 0.96 Normal 1 Laboratory test finding 04/22/2020 [facility] Main Lab [address] [place] [address] [phone] Angiotensin 1 Converting Enzym 38 U/L Normal 1 4-82 2 CBC With Differential 04/22/2020 [facility] Main Lab [address] [place] [address] [phone] White Blood Count 11.7 10 High 4.0-10.0 [...] 36.0-66.0 Lymph % 11.2 % Low 24.0-44.0 [place] % 8.9 % High 0.0-5.0 Eos % 1.6 % Normal 0.0-3.0 Baso % 0.9 % Normal 0.0-1.0 Immature Granulocyte % 0.7 % Normal 0-3.0 Nucleated Red Blood Cell % 0.0 % Normal 0-0 Neutrophils # 9.0 10 High 1.5-8.5 Lymph # 1.3 10 Low 1.5-5.0 [place] # 1.0 10 High 0.0-0.8 Eos # 0.2 10 Normal 0.0-0.5 Baso # 0.1 10 Normal 0.0-0.2 Comprehensive Metabolic Profil 04/22/2020 [facility] Main Lab [address] [place] [address] [phone] Glucose, Fasting 146 mg/dL High 70-100 Blood [...] 0.9 Low 1.2-2.2 Laboratory test finding 04/22/2020 [facility] Main Lab [address] [place] [address] [phone] Bedside Glucose 168 mg/dL High 80-115 Culture Fungus Misc 04/22/2020 [facility] nter Main Lab [address] [place] [address] [phone] Fungal Smear Testing performe <SEE NOTE> 4 Fungal Culture Other Source Testing performe <SEE NOTE> 5 Acid Fast Smear & Culture(Afb) Sendout 04/22/2020 [facility] Main Lab [address] [place] [address] [phone] Afb Smear Due to limited s <SEE NOTE> 6 Afb Culture Testing performe <SEE NOTE> 7 Cell Count/Diff CSF (Auto Count) 04/22/2020 [facility] Main Lab [address] [place] [address] [phone] Neutrophils, Bal 5 % Normal Lymphocytes, Bal 25 % Normal Monocytes/Macrophages, Bal 70 % Normal Cell Count Broncho Lavage 04/22/2020 [facility] Main Lab [address] [place] [address] [phone] Source LEFT UPPER LOBE Normal 8 Color PINK High Colorless Appearance CLOUDY High Clear Bal WBC 53 CELLS/uL High 0-10 Laboratory test finding 04/22/2020 [facility] Main Lab [address] [place] [address] [phone] Afb Smear & Culture Due to limited s <SEE NOTE> 9 Bal Culture And Gram Stain 04/22/2020 [facility] Main Lab [address] [place] [address] [phone] Gram Stain (SEE NOTE) Normal 10 Bal Culture FULL REPORT IN L <SEE NOTE> Normal 11 Laboratory test finding 04/22/2020 [facility] Main Lab [address] [place], [place] [address] [phone] Non Textile Slitting Machine Operator/Cytology Req For Servi (SEE NOTE) 12, 13 Laboratory test finding 04/22/2020 [facility] Main Lab [address] [place] [address] [phone] Non Textile Slitting Machine Operator/Cytology Req For Servi (SEE NOTE) 14 Laboratory test finding 04/22/2020 [facility] Main Lab [address] [place] [address] [phone] Pathology Request For Service (SEE NOTE) 15 Laboratory test finding 04/22/2020 [facility] Main Lab [address] [place] [address] [phone] Pathology Request For Service (SEE NOTE) 16 Laboratory test finding 04/22/2020 [facility] Main Lab [address] [place] [address] [phone] Non Textile Slitting Machine Operator/Cytology Req For Servi (SEE NOTE) 17 Laboratory test finding 04/22/2020 [facility] Main Lab [address] [place] [address] [phone] Non Textile Slitting Machine Operator/Cytology Req For Servi (SEE NOTE) 18 1 THERAPUTIC HUMAN INR VALUES INDICATIONS NORMAL RANGES PROPHYLAXIS/TREATMENT OF: VENOUS THROMBOSIS 2.0-3.0 PULMONARY EMBOLISM 2.0-3.0 PREVENTION OF SYSTEMIC EMBOLISM FROM: TISSUE HEART VALVES 2.0-3.0 ACUTE MYOCARDIAL INFARCTION 2.0-3.0 VALVULAR HEART DISEASE 2.0-3.0 ATRIAL FIBRILLATION 2.0-3.0 MECHANICAL VALVES(HIGH RISK) 2.5-3.5 RECURRENT MYOCARDIAL INFARCTION 2.5-3.5 2 Performed at: RN - [facility] [address] [id number] Grader Operator: Lily Weaver MD, Phone: [phone] 3 Units are mL/min/1.73 m2 Chronic Kidney Disease Staging per NKF: Stage I & II GFR >=60 Normal to Mildly Decreased Stage III GFR 30-59 Moderately Decreased Stage IV GFR 15-29 Severely Decreased Stage V GFR <15 Very Little GFR Left ESRD GFR <15 on BOLT LABELER [address] [facility] . Report copy to follow on a separate form. 06/06/20 REF LAB#:[id number] SIMA/Calcofluor preparatio No fungus observed. [address] [facility] . Report copy to follow on a separate form. 06/06/20 REF LAB#:[id number] FUNGUS CULTURE [facility] No Yeast or Mold Isolated after 4 weeks. 6 Due to limited sensitivity, smear results should be used as an adjunct in evaluating patient tuberculosis status. Cultural examination is highly recommended for clinical diagnosis. AFB smear [place] NEGATIVE (NO AFB Seen ) [address] [facility] . Report copy to follow on a separate form. 06/06/20 REF LAB#:[id number] FULL REPORT IN LAB NOTES (eCW and [...] Broncho alveolar lavage (right upper lobe) 2ml [place] SPECIMEN ADEQUACY: Satisfactory for evaluation CATEGORIZATION: Positive for Malignancy DESCRIPTIONS: Cellular specimen consiting of atypical cells exhibiting high n/c ratios and atypical nuclei with prominent macronucleoli. The background consists of bronchial cells, macrophages, scattered lyphocytes, and blood elements. COMMENTS: Please correlate with surgical case [id number]. 04/23/20201555 Signed SUKHI AWAD CT(ASCP) 04/23/2020 1036 (Prelim) Signed JYOTSNA SIDDIQUI MD 04/23/2020 155 14 SPECIMEN: Broncho alveolar lavage (left upper lobe) 5ml [place] SPECIMEN ADEQUACY: Satisfactory for evaluation CATEGORIZATION: Positive for Malignancy DESCRIPTIONS: Scattered small groups of atypical cells exhibiting increased n/c ratios and muclei with prominent macronucleoli. The background consists of bronchial cells, scattered pulmonary macrophages and blood elements. COMMENTS: Please correlate with surgical case [id number]. 04/23/20201555 Signed SUKHI AWAD CT(ASCP) 04/23/2020 1116 (Prelim) Signed JYOTSNA SIDDIQUI MD 04/23/2020 1556 15 Addendum 3 Entered: 020-1145 PD-L1 KEYTRUDA shows tumor proportion score of 25%/Expression. Positive for BRAF Negative for ALK Negative for ROS1 Negative for KRAS Negative for EGFR See complete reports from [facility] 4/TR 05/18/20201144 Addendum Signed____ Julisa Cerda MD 05/18/2020 1145 Addendum 2 Entered: 05/15/2020-0659 PD-L1 KEYTRUDA shows tumor proportion score of 25%/Expression. Positive for BRAF Negative for ALK Negative for ROS1 Negative for KRAS See complete reports from [facility] 4/TR 05/15/2020658 Addendum Signed____ Julisa Cerda MD 05/15/2020658 Addendum 1 Entered: 05/14/2020-0553 PD-L1 KEYTRUDA shows tumor proportion score of 25%/Expression. Positive for BRAF Negative for ROS1 Negative for KRAS ALK is pending, addendum will follow. See complete reports from [facility]. 05/14/2020552 Addendum Signed____ Julisa Cerda MD 05/14/2020552 FINAL DIAGNOSIS A - Lung, right upper lobe, transbronchial biopsy: Adenocarcinoma, moderately differentiated. - See comment. B - Lung, right lower [...] 1525 Signed JYOTSNA SIDDIQUI MD 04/24/2020 1115 16 FINAL DIAGNOSIS [...] cells. COMMENTS: Please correlate with surgical case [id number]. 04/23/2020 - [address](ASCP) 04/23/2020 1005 (Prelim) Signed JYOTSNA SIDDIQUI MD 04/23/2020 1556 18 SPECIMEN: Bronchi al brushing (right upper lobe) Prepared slides and brush in vial received SPECIMEN ADEQUACY: Satisfactory for evaluation CATEGORIZATION: Atypical cytology DESCRIPTIONS: Scant atypical cells exhbiting variation in size and nuclei with prominent nucleoli in a background of brochial cells and blood elements. Please correlate with surgical case [id number]. COMMENTS: 04/23/20201554 Signed SUKHI AWAD CT(ASCP) 04/23/2020 1149 (Prelim) Signed JYOTSNA SIDDIQUI MD 04/23/2020 1555 Procedures Date Code Description Status 04/22/2020 21823 With Endobronchial Ultrasound Gu ided Completed 04/22/2020 80416 Bronchoscopy, W/Lopez sbronchial Needle Aspiration Biopsy Addl Lobe Completed 04/22/2020 95509 Bronchoscopy W/Biopsy Completed 04/22/2020 42297 Bronchoscopy W/Bronchial Alveola r Lavage Completed 04/22/2020 48466 Bronchoscopy W/Brushing Or Prote cted Brushings Completed 04/10/2020 60724 Airway Inhalation Treatment Comp leted Medical Devices Description No Information Available Encounters Type Date Location Provider Dx Diagnosis Office Visit 05/28/2020 10:45a [facility] Yesica Tran M.D. C34.11 Malignant neoplasm of upper [...] pulmonar y embolism Office Visit 04/28/2020 2:30p [facility] Jannet Shearer M.D. 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 06/29/2020 C34.12 Malignant neoplasm of upper lobe , left bronchus or lung Alfonso Tran M.D. 06/29/2020 C77.1 Secondary and unspec ified malignant neoplasm of intrathoracic lymph nodes Alfonso Tran M.D. 06/29/2020 I31.9 Disease of pericardium, unspecif ied Alfonso Tran M.D. 06/29/2020 C79.89 Secondary malignant neoplasm of other specified sites Alfonso Tran M.D. 06/29/2020 E11.9 Type 2 diabetes mellitus without complications Alfonso Tran M.D. 06/29/2020 I10 Essential (primary) hypertension Alfonso Tran M.D. 06/29/2020 Z86.711 Personal history of pulmonary em bolism Alfonso Tran M.D. 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 05/28/2020 C34.11 Malignant neoplasm of upper lobe [...] 04/28/2020 Z87.891 Personal history of nicotine dep Jannet Gregg M.D. 04/28/2020 C34.11 Malignant neoplasm of upper lobe , right bronchus or lung Jannet Terrell M.D. 04/28/2020 C34.12 Malignant neoplasm of upper lobe , left bronchus or lung Jannet Terrell M.D. 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 04/22/2020 R91.8 Other nonspecific abnormal findi ng of lung field Jannet Terrell M.D. 04/10/2020 R91.8 Other nonspecific abnormal findi ng of lung field Jannet Terrell M.D. 04/10/2020 Z87.891 Personal history of nicotine dep Jannet Gregg M.D. 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 newly diagnosed metastatic adenocarcinoma Closed 05/14/2020 [facility] H[facility]ology [address] [place], [place] [address] [phone] Radiology/[place] [address],2 3,24,25,26,28.29,32,33,52,53,54 and S2900 Closed
--- OUTSIDE RECORDS SUMMARY | 2020-08-05 06:59 | CCD ---
Author Author [facility] Organization [facility] Address [address] [facility] [address] [place] [address] Phone Care Team Providers Care Enrobing Machine Operator Name Role Phone Koffi FERNANDEZ, Ramya Guzman Unavailable [phone] Amina FERNANDEZ, Matt Moreno PP [phone] Landy Eduar Unavailable [phone]. [phone] Rony FERNANDEZ, Michael Unavailable [phone] Misty FERNANDEZ, Lizandro Unavailable Unavailable Lucia FERNANDEZ, Nicolas [...] Difficulty Swallowing (Dysphagia) 08/07/2014 - 12:00AM Marina M Gibson RPA Active Note: Unchanged Esophageal Reflux 08/07/2014 - 12:00AM Matt gardiner MD Active Note: Unchanged - Mod HH and reflux on UGI Major Depression Chronic 06/17/2014 - 12:00AM Marinaisabela Georgeing RPA Active Note: Unchanged Diabetes Mellitus Type 2 06/17/2014 - 12:00AM Marina M Gibson RPA Active Note: Unchanged Psoriasis 06/17/2014 - 12:00AM Marina Gaby Gibson RPA Active Note: Unchanged Sarcoidosis 06/17/2014 - 12:00AM Marina M Gibson RPA Active Note: Unchanged Plan of Treatment Care Programs [facility] Future Appointments Date Time Location Provider followup 08/03/2020 10:45AM [facility], [facility] Matt Huynh MD Findings Encounter Date Follow-up visit date 07/06/2020 [facility] phone call- NO C HARGE with Matt Huynh MD 07/06/2020 Transitional care management services with high comple xity decision making [facility] phone call- NO CHARGE with Matt Huynh MD 07/06/2020 Follow-up visit date 06/11/2020 [facility] phone call- [...] of a non-infectious origin. Will refer for STEPHANIE appointment with pulmonology, she is agreeable. She will seek immediate treatment through an ER setting if her condition worsens followup with [facility] 04/07/2020 Tylenol for discomfort or fever. Push fluids and rest. CXR pending. 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 See back in 1 month. Call if persistent or high fever, increased work of breathing, persistent pain, if sxs not improving, or if concerned sick visit with [facility] 03/02/2020 Tylenol for discomfort or fever. Push fluids and rest. Will treat as above. No changes to medical regimen. Call if persistent or high fever, increased work of breathing, persistent pain, if sxs not improving, or if concerned. See back in 2-4 weeks to ensure resolution in symptoms incident to previous visit- with [facility] 12/05/2019 Tylenol for discomfort or fever. Push fluids and rest. Call if persistent or high fever, increased work of breathing, persistent pain, if sxs not improving, or if concerned sick visit with [facility] 10/14/2019 Following clinical practice guideline A DA/EASD 2012 Position Statement and the Standards of Medical Care in Diabetes-2015 ADA. Individualized more or less stringent management goals(HbA1c 6.5%-8.0%, fasting IQ454-735 mg/dL and ppBG 175-225mg/dL) were reviewed with the pt after assessing attitude, motivation, potential risks, disease duration, life expectancy,and comorbiditities. Will increase lantus to 45 units in the morning and focus on improved diet with various suggestions given today. Recheck a1c in 3 months incident to previous visit- with [facility] 12/24/2018 Treatment goals and the natural histor [...] visit with fasting labs prior followup with Marina Gibson RPA 12/26/2017 Referred elsewhere for physical therapy service [...] Management HIGH comple xity with Marina Gibson [facility] 12/15/2015 Patient making good improvement in sym [...] Care Managment MODERATE complexity with Marina Gibson [facility] 07/14/2015 Reassurance given to patient that this does not appear to be temporal arteritis and she does not require prednisone taper or further workup. Subconjunctival hemorrhage appears to be resolving. Will continue to monitor symptoms and follow up with worsening or persistent symptoms, questions or concerns. Otherwise keep next sick visit with Marina Gaby Paige [facility] 12/22/2014 Ordered elevate head of bed followup [...] if issues arise new patient with Marina Georgeing [facility] 06/17/2014 Assessments Includes: Assessments for all patient encounters Findings Encounter Date Generalized anxiety disorder sick visit with Matt gardiner MD 06/27/2020 Panic disorder without agoraphobia sick visit with Matt Hendrix MD 06/27/2020 Adjustment disorder with anxiety Transitional Care Man agement HIGH complexity with Matt Huynh MD 06/11/2020 Chronic major depression Transitional Care Management HIGH complexity with Matt Huynh MD 06/11/2020 Malignant lung neoplasm (non-small cell) [...] Essential hypertension ANNUAL PE-followup exam/30 w ith Matt Huynh MD 07/01/2019 Morbid obesity due to [...] 12/24/2018 Psoriasis incident to previous visit- with [facility] 12/24/2018 Type 2 diabetes mellitus - uncomplicated, uncontrolled incident to previous visit- with [facility] 12/24/2018 Essential hypertension which is stable ANNUAL [...] 06/28/2018 Chronic major depression followup with Marina [facility] 0 12/26/2017 Type 2 diabetes mellitus - uncomplicated, uncontrolled followup with Marina M [facility] 12/26/2017 Chronic major depression which is well-controlled MADDIE AL PE-followup exam/30 with Matt Huynh MD 06/26/2017 Chronic reflux esophagitis which is well-controlled AN NUAL PE-followup exam/30 with Matt Huynh MD 06/26/2017 Psoriasis which is stable ANNUAL PE-followup exam/30 w jenise Huynh MD 06/26/2017 Routine adult history and physical (18 - 64 yrs) ANNUA L PE-followup exam/30 with Matt Huynh MD 06/26/2017 Type 2 diabetes mellitus - uncomplicated, controlled b y INSULIN ANNUAL PE- followup exam/30 with Matt Huynh MD 06/26/2017 Sprained lumbosacral joint sick visit with Matt gar MD 04/14/2017 Chronic major depression which is improving followup w jenise Huynh MD 02/17/2017 Essential hypertension which is well-controlled follow up with Matt Huynh MD 02/17/2017 Possible restrictive lung disease Likely due to body habitus followup with Matt Huynh MD 02/17/2017 Supraventricular tachycardia which is stable followup with Matt Huynh MD 02/17/2017 Type 2 diabetes mellitus - uncomplicated, controlled b y INSULIN followup with Matt Huynh MD 02/17/2017 Chronic major depression followup with Marina M Gibson RPA 0 10/12/2016 Chronic major depression sick visit with Marina M Gibson RPA 08/24/2016 Depression with anxiety sick visit with Marina M Gibson RPA 08/24/2016 Chronic reflux esophagitis ANNUAL PE-followup exam/30 with Matt Huynh MD 06/20/2016 Essential hypertension ANNUAL PE-followup exam/30 w ith Matt Huynh MD 06/20/2016 Mixed hyperlipoproteinemia which [...] Pre- op consult for surgery with Marina Gibson RPA 04/20/2016 Working diagnosis of visit for: preoperative exam Pre- op consult for surgery with Marina M Gibson RPA 04/20/2016 Chronic major depression which is well-controlled foll owup with Marina M Gibson RPA 02/12/2016 Esophageal reflux which is well-controlled followup with Toñitoa na M Gibson RPA 02/12/2016 Type 2 diabetes mellitus which is improving followup with Dy Ann Gibson RPA 02/12/2016 Supraventricular tachycardia which is resolved Transit ional Care Management HIGH complexity with Marina M Gibson RPA 12/15/2015 Type 2 diabetes mellitus - uncomplicated, [...] the right eye sick visit with Marina M Gibson RPA 12/22/2014 Chronic major depression , improving followup with Marina M M anning RPA 10/31/2014 Esophageal reflux which is well-controlled followup with Dya na M Gibson RPA 10/31/2014 Type 2 diabetes mellitus followup [...] historical Medications Current Medications (continue as prescribed) Doxycycline Hyclate 100 MG Oral Tablet 07/01/2020 P rovider: Diagnosis: Cefdinir 300 MG Oral Capsule 07/01/2020 Provider: Diagnosis: predniSONE 10 MG Oral Tablet 07/01/2020 Provider: Diagnosis: started at [facility] Clobetasol Propionate 0.05% External Ointment 07/01/2020 Provider: Matt Huynh MD Diagnosis: aplly to affected area TID Calcitrene 0.005% External Ointment 07/01/2020 Prov ider: Matt Huynh MD Diagnosis: apply bid to affected area LORazepam 0.5 MG Oral Tablet 06/27/2020 Provider: Matt Huynh MD Diagnosis: 1 PO QID prn #: [id number] MDD=4 Levalbuterol HCl 0.63 MG/3ML Inhalation Nebulization solutio n 06/20/2020 Provider: Jannet Terrell MD Diagnosis: Accu-Chek FastClix Lancets Miscellaneous 06/19/2020 Provider: Matt Huynh MD Diagnosis: test qd E11.9 Accu-Chek Guide w/Device Kit 06/19/2020 Provider: Matt Huynh MD Diagnosis: as directed tests qd E11.9 Accu-Chek Guide In Vitro Strip 06/19/2020 Provider: Matt Huynh MD Diagnosis: as directed Tests qd E11.9 Basaglar KwikPen 100 UNIT/ML Subcutaneous Solution Pen-injec tor 02/11/2020 Provider: Marina Gibson RPA Diagnosis: as directed 45 units SQ daily or as directed MDD=60 units Metoprolol Succinate ER 50 MG Oral Tablet Extended Release 2 4 Hour 02/05/2020 Provider: Marina Gibson RPA Diagnosis: 1 PO QD Jardiance 10 MG Oral Tablet 02/05/2020 Provider: Marina Gibson RPA Diagnosis: 1 PO QD BD Pen Needle Isabel U/F 32G X 4 MM Miscellaneous 01/24/2020 Provider: Marina Gibson RPA Diagnosis: as directed use with Victoza pen BID Viibryd 40 MG Oral Tablet 11/20/2019 Provider: [...] Miscellaneous 01/25/2019 Provider: Marina Gibson RPA Diagnosis: Elvie Microlet 2 Lancing device with 50 lancets Aspirin 81 MG OR TABS 06/17/2014 Provider: Diagnosis: Past Medications on file traZODone HCl 50 MG Oral Tablet 06/27/2020 - 07/06/2020 Prov ider: Matt Huynh MD Diagnosis: 1 PO QHS OneTouch Verio Flex System w/Device Kit 06/19/2020 - 020 Provider: Matt Huynh MD Diagnosis: as directed tests qd E11.9 OneTouch Verio In Vitro Strip 06/19/2020 - 06/19/2020 Provid er: Matt Huynh MD Diagnosis: as directed test qd E11.9 OneTouch Delica Lancets 33G Miscellaneous 06/19/2020 - 06/19 Provider: Matt Huynh MD Diagnosis: as directed Test qd e11.9 LORazepam 0.5 MG Oral Tablet 06/11/2020 - 06/27/2020 Provide r: Matt Huynh MD Diagnosis: 1 PO QID prn #: [id number] MDD=4 Azithromycin 250 MG Oral Tablet 04/07/2020 - 05/19/2020 Prov ider: Marina Gibson RPA Diagnosis: as directed Take 2 tabs PO x 1 day, then 1 tab PO daily x 4 days. predniSONE 20 MG Oral Tablet 04/07/2020 - 05/19/2020 Provide r: Marina Gibson RPA Diagnosis: 2 PO QD Levaquin 500 MG Oral Tablet 03/02/2020 - 05/19/2020 Provider : Marina Gibson RPA Diagnosis: 1 PO QD Breo Ellipta 100-25 MCG/INH Inhalation Aerosol Powder Breath Activated 03/02/2020 - 03/30/2020 Provider: Diagnosis: 1 puff daily Enalapril Maleate 5 MG Oral Tablet 01/20/2020 - 06/11/2020 P rovider: Marina Gibson [facility] Diagnosis: 1 PO QD hydroCHLOROthiazide 12.5 MG Oral Tablet 01/20/2020 - 020 Provider: Marina Gibson [facility] Diagnosis: 1 PO QD Medrol 4 MG Oral Tablet Therapy Pack 12/19/2019 - 05/19/2020 Provider: Marina Gibson [facility] Diagnosis: as directed per package instructions Levaquin 500 MG Oral Tablet 12/05/2019 - 05/19/2020 Provider : Marina Gibson [facility] Diagnosis: 1 PO QD Breo Ellipta 100-25 MCG/INH Inhalation Aerosol Powder Breath Activated 12/05/2019 - 12/19/2019 Provider: Marina Gibson [facility] Diagnosis: 1 puff daily Azithromycin 250 MG Oral Tablet 10/14/2019 - 12/05/2019 Prov ider: Marina Gibson [facility] Diagnosis: as directed Take 2 tabs PO x 1 day, then 1 tab PO daily x 4 days. Victoza 18 MG/3ML Subcutaneous Solution Pen-injector 020 - 06/11/2020 Provider: Matt Huynh MD Diagnosis: as directed - 1.2mg SQ QD Enalapril Maleate 5 MG Oral Tablet 07/29/2019 - 12/05/2019 P rovider: Matt Huynh MD Diagnosis: 1 PO QD hydroCHLOROthiazide 12.5 MG Oral Tablet 07/29/2019 - 020 Provider: Matt Huynh MD Diagnosis: 1 PO QD Enalapril-hydroCHLOROthiazide 5-12.5MG Oral Tablet - 05/19/2020 Provider: Marina Gibson [facility] Diagnosis: 1 PO QD Victoza 18MG/3ML Subcutaneous Solution Pen-injector 03/18/20 19 - 07/01/2019 Provider: Marina Gibson [facility] Diagnosis: as directed - 1.2mg SQ QD Metoprolol Succinate ER 50MG Oral Tablet Extended Rele ase 24 Hour 02/05/2019 - 12/19/2019 Provider: Matt Huynh MD Diagnosis: 1 PO QD Jardiance 10MG Oral Tablet 02/05/2019 - 12/19/2019 Provider: Matt Huynh MD Diagnosis: 1 PO QD Basaglar JuikPen 100UNIT/ML Subcutaneous Solution Pen- injector 01/24/2019 - [...] Matt Huynh MD Diagnosis: 1 PO QD Calcitrene 0.005% External Ointment 06/28/2018 - 07/01/2020 Provider: Matt Huynh MD Diagnosis: apply bid to affected area Lantus SoloStar 100UNIT/ML Subcutaneous Solution Pen-i njector 06/28/2018 - 01/24/2019 Provider: Matt Huynh MD Diagnosis: Type 2 diabetes denise itus without complications 45 units SC qpm or as directed (50U daily max) Clobetasol Propionate 0.05% EX OINT 04/02/2018 - 07/01/2020 Provider: Matt Huynh MD Diagnosis: aplly to [...] SOPN 06/19/2017 - 06/28/2018 Provider: Marina Gibson [facility] Diagnosis: 45 units SC qpm or as [...] Pen-injector 01/06/2017 - 018 Provider: Marina Gibson [facility] Diagnosis: as directed - 1.2mg SQ QD Pioglitazone HCl 15 MG OR TABS 12/26/2016 - 02/17/2017 Provi kedar: Matt Huynh MD Diagnosis: 1 PO QD Viibryd 40 MG Tablet 11/29/2016 - 12/07/2017 Provider: Marina Gibson [facility] Diagnosis: 1 PO QD Victoza 18 MG/3ML [...] Needle Isabel U/F 32G X 4 [facility] 11/06/2015 - 03/30/20 16 Provider: Matt Huynh [...] MD Diagnosis: 1 PO BID ReliOn Pen [place] 31G X 8 MM Miscellaneous (not speci [...] Recorded Vital Signs Includes: Vital Signs from 07/06/2019 through 07/06/2020 Vital Name 07/06/2020 10:14A 06/27/2020 10:52A 06/11/2020 04:28P 05/19/2020 01:50P 04/07/2020 09:06A Blood Pressure Sitting (mmHg) 122/68 121/79 99/55 100/68 Pulse Rate-Sitting (bpm) 110 114 90 90 Height (in) 61 61 61 61 61 Weight (lb) 193 186.375 192 181 190 Body Mass Index (kg/m2) 36.5 35.2 36.3 34.2 3 5.9 Body Surface Area (m2) 1.86 1.83 1.86 1.81 1. 85 Oxygen Saturation (%) 98 98 95 Blood Pressure Sitting L 100/60 BP Cuff Size Large Respiration Rate (breaths/min) 32 24 Flow Rate (l/min) 2 (Nasal Cannula) FiO2 (%) 28 Vital Name 03/02/2020 03:45P 12/19/2019 02:30P 12/05/2019 08:15A 10/14/2019 01:41P Blood Pressure Sitting (mmHg) 82/50 98/50 Pulse Rate-Sitting (bpm) 110 88 88 80 Height (in) 61 61 61 61 Weight (lb) 194 200.375 202 Body Mass Index (kg/m2) 36.7 37.9 38.2 Body Surface Area (m2) 1.86 1.89 1.90 Oxygen Saturation (%) 93 96 95 BP Cuff Size Regular Respiration Rate (breaths/min) 30 20 26 26 Temp-Oral (F) 98.7 98.2 97.3 Blood Pressure Sitting R 110/62 Results Includes: Results from 07/06/2019 through 07/06/2020 [facility] Doctor's In-house Laboratory Ordered by Matt Huynh MD on 05/22/2020 [address] [place], [address] Collected: 05/22/2020 Reported: 05/22/2020 12:47 tel : [...] Ordered by Matt Huynh MD on 05/22/[address] [place] [address], [address] Collected: 05/22/2020 Reported: 05/22/2020 12:47 tel : ext. 1500 GRAN# 4.2 /mm3 (2.5-7.5) None [...] 4.48 /mm3 (4.00-5.50) None Note: Responsible Observer: HAILEY RDW 18.6 % (13.0-15.0) H (High) Note: Responsible Observer: KM WBC 5.6 /mm3 (4.0-10.0) None Note: Responsible Observer: KM Reviewed on 05/25/2020; All test result s are final unless otherwise noted. Hgba1c [facility] In-house [facility] Ordered by Matt Huynh MD on 12/05/[address] [place] [address], [address] Collected: 12/05/2019 Reported: 12/05/2019 09:33 tel : ext. 1500 Hgba1c 7.3 na (5.0-6.0) H (High) Note: Responsible Observer: HAILEY Reviewed by Marina Gibson RPA on 12/04; [...] Procedures and Surgical History Includes: Procedures from 07/06/2019 through 07/06/2020 Procedures Code Diagnosis Performing Provider Service Location Service Date Medication Reconciliation Incentive 1111F Kourtney gnant neoplasm of unsp part of right bronchus or lung, Adjustment disorder with anxiety, Major depressive disorder, recurrent, unspecified, Supraventricular tachycardia Matt Huynh MD [facility], [facility] 06/11/2020 no charge procedure [place] Encntr for surgical aftcr following surgery on the circ sys, Encounter for change or removal of drains, Malignant pleural effusion, Secondary malignant neoplasm of other specified sites Matt Huynh MD [facility], [facility] 06/11/2020 no charge procedure NC Malignant neoplasm o f unsp part of right bronchus or lung, Adjustment disorder with anxiety, Major depressive disorder, recurrent, unspecified, Supraventricular tachycardia Matt Huynh MD [facility], [facility] 06/11/2020 BMP-Basic Metabolic Profile 82781 Type 2 diabe deborah mellitus without complications, Gastro-esophageal reflux disease without esophagitis Matt Huynh MD [facility], [facility] 05/22/2020 CBC 16598 Type 2 diabetes denise itus without complications, Gastro-esophageal reflux disease without esophagitis Matt Huynh MD [facility], [facility] 05/22/2020 Venipuncture (routine) 80620 Type 2 diabetes m ellitus without complications, Gastro-esophageal reflux disease without esophagitis Matt Huynh MD [facility], [facility] 05/22/2020 Medication Reconciliation Incentive 1111F Kourtney gnant neoplasm of unsp part of right bronchus or lung, Type 2 diabetes mellitus without complications, Gastro- esophageal reflux disease without esophagitis Matt Huynh MD [facility], [facility] 05/19/2020 no charge procedure NC Malignant neoplasm o f unsp part of right bronchus or lung, Type 2 diabetes mellitus without complications, Gastro-esophageal reflux disease without esophagitis Matt Huynh MD [facility], [facility] 05/19/2020 HgbA1C 67894 Type 2 diabetes mellitus without complications Matt Huynh MD [facility], [facility] 12/05/2019 -collection of capillary blood (fingerstick, heel ) 43697 Type 2 diabetes mellitus without complications Matt Huynh MD [facility], [facility] 12/05/2019 Surgical History Last Updated History of hysterectomy 197906/17/2014 History of cataract surgery ; Bilateral 2001,03/2014 History of inguinal hernia repair ; Right 1979 014 History of tonsillectomy 06/17/2014 Medical History Includes: Medical History in patient's chart Description Last Updated History of temporal arteritis 06/17/2014 History of pulmonary embolism 1989 06/17/2014 Family History Includes: Family History in patient's [...] Mental Status not supported for this document typeNo Mental Status Recorded Functional Status Functional Status not supported for [...] injectable 3 06/16/2015 Left Arm Complete (Administered) [facility] Influenza, seasonal, injectable 4 04/20/2016 Left Deltoid Complete (Administered) [facility] Note: VIS Given Influenza, seasonal, injectable 5 07/01/2019 Left Deltoid Complete (Administered) [facility] PCV (Pneumovax 23) 1 03/20/2012 Complete (Reported ) Patient PCV (Pneumovax 23) 2 02/17/2017 Complete (Reported ) Patient [id number] 1 07/01/2019 Right Deltoid Complete (Admin istered) [facility] Tdap (> 7 yrs) 1 02/17/2017 Complete (Reported) Pa tient Allergies Includes: Active, inactive, and resolved Allergies Substance Type Reaction Onset Date - Time Resolved Date - Ti me Status traZODone HCl Intolerance night sweats 07/06/2020 - 10:36AM Active Remeron Intolerance Sleeplessness 06/17/2014 - 12:00AM Active Pravachol Intolerance Nausea, Vomiting, Diarrhea 06/17/2014 - 12:00A M Active Glucophage Allergy Nausea, Vomiting, Diarrhea 01/01/2016 - 12:00AM Active CeleXA Intolerance Jittery 06/17/2014 - 12:00AM Act smiley Albuterol Sulfate Intolerance tremors and anxiety. Better w ith Xopenex 07/06/2020 - 9:10AM Active Encounters Includes: Encounters from 07/06/2019 through 07/06/2020 Encounter Provider Location Date Check-In Time Check-Out Time D iagnosis [facility] phone call- NO CHARGE Matt Huynh MD 06/10 5:40PM 11:59PM Transitional Care Management HIGH complexity Matt gardiner MD [facility], [facility] 07/06/2020 10:00AM 10:55AM [Patient Encounter] Matt Huynh MD 07/01/2020 1 08/28/2019 4:09PM 06/27/2020 11:59PM sick visit Matt Huynh MD [facility], [facility] 06/27/2020 10:42AM 11:15AM Generalized Anxiety Disorder, Panic Disorder Without Agoraphobia Transitional Care Management HIGH complexity Matt gardiner MD [facility], [facility] 06/11/2020 4:16PM 5:12PM Lung Nemesio plasm Malignant (Non- small Cell) Stage IV, Tachycardia Supraventricular, Major Depression Chronic, Adjustment Disorder with Anxiety [facility] phone call- NO CHARGE Matt Huynh MD 06/11/2020 05/19/2020 4:00PM 05/19/2020 11:59PM Transitional Care Management HIGH complexity Matt gardiner MD [facility], [facility] 05/19/2020 1:24PM 2:47PM Lung Nemesio plasm Adenocarcinoma Metastatic To, Diabetes Mellitus Type 2 - Uncomplicated, Controlled By Insulin [facility] phone call- NO CHARGE Matt Huynh MD 05/19/2020 04/07/2020 11:49AM 04/07/2020 11:59PM [facility] 04/07 8:53AM 9:33AM [facility] 4:11PM 03/02/2020 11:59PM [facility] 0 03/02/2020 3:29PM 4:03PM Pneumonia [facility] 020 9:39AM 12/19/2019 11:59PM sick visit Marina Griffin [facility], [facility] 0 12/19/2019 2:02PM 3:09PM Shoulder Strain Deltoid Musc le, Pneumonia incident to previous [facility] 12/05/2019 8:12AM 9:16AM Pneumonia Right Middle Zone, Diabetes Mellitus Type 2 - Uncomplicated, Uncontrolled, Major Depression Chronic sick visit Marina Gibson RPA [facility] 0 10/14/2019 1:28PM 1:58PM Acute Bronchitis [Patient Encounter] Matt Huynh MD 09/23/2019 1 09/01/2018 4:54PM 07/01/2019 11:59PM Insurance Includes: Active Insurance Policies Plan Name Member ID Group # Subscriber Relationship Effective Da deborah 1 - [employer] [id number] Mohamud Morejon Advance Directives Includes: Current Advance DirectivesNo Advance Directives Recorded Health Concerns Includes: Active Health ConcernsNo Active Health Concerns Recorded Goals Includes: Active GoalsNo Active Goals Recorded Interventions Includes: Interventions for active GoalsNo Interventions Recorded Evaluations & Outcomes Includes: Evaluations & Outcomes for active GoalsNo Outcomes Recorded
--- OUTSIDE RECORDS SUMMARY | 2020-08-05 07:00 | CCD ---
Author Author [facility] Organization [facility] Address [address] [place] [address] Phone Care Team Providers Care It Security Specialist Name Role Phone Koffi FERNANDEZ, Ramya Guzman Unavailable [phone] Amina FERNANDEZ, Matt Moreno PP [phone] Landy Eduar Unavailable [phone]. [phone] Rony FERNANDEZ, Michael Unavailable [phone] Misty FERNANDEZ, Lizandro Unavailable Unavailable Lucia FERNANDEZ, Nicolas Griffin Unavailable Unavailable Reason for Referral No Reason for Referral Recorded Problems Includes: Active, inactive, and resolved Problems All Visits Onset Date - Time Resolved Date - Time Provider Co ndition Status 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 [...] Depression Chronic 06/17/2014 - 12:00AM Marina Gibson [facility] Active Note: Unchanged Diabetes Mellitus Type 2 06/17/2014 - 12:00AM Marina Gibson [facility] Active Note: Unchanged Psoriasis 06/17/2014 - 12:00AM Marina Gibson [facility] Active Note: Unchanged Sarcoidosis 06/17/2014 - 12:00AM Marina Gibson [facility] Active Note: Unchanged Plan of Treatment Care Programs [facility] Future Appointments Date Time Location Provider followup 06/29/2020 9:45AM [facility], [facility] Matt Huynh MD Findings Encounter Date [...] her condition worsens followup with Marina Gibson [facility] 04/07/2020 Tylenol for discomfort or fever. Push fluids and rest. CXR pending. 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 See back in 1 month. Call if persistent or high fever, increased work of breathing, persistent pain, if sxs not improving, or if concerned sick visit with Marina Gibson [facility] 03/02/2020 Tylenol for discomfort or fever. Push fluids and rest. Will treat as above. No changes to medical regimen. Call if persistent or high fever, increased work of breathing, persistent pain, if sxs not improving, or if concerned. See back in 2-4 weeks to ensure resolution in symptoms incident to previous visit- with Marina Gaby Gibson [facility] 12/05/2019 Tylenol for discomfort or fever. Push fluids and rest. Call if persistent or high fever, increased work of breathing, persistent pain, if sxs not improving, or if concerned sick visit with Marina Gaby Paige [facility] 10/14/2019 Following clinical practice guideline A DA/EASD 2012 Position Statement and the Standards of Medical Care in Diabetes-2015 ADA. Individualized more or less stringent management goals(HbA1c 6.5%-8.0%, fasting JJ369-325 mg/dL and ppBG 175-225mg/dL) were reviewed with the pt after assessing attitude, motivation, potential risks, disease duration, life expectancy,and comorbiditities. Will increase lantus to 45 units in the morning and focus on improved diet with various suggestions given today. Recheck a1c in 3 months incident to previous visit- with Marina Gibson [facility] 12/24/2018 Treatment goals and the natural histor [...] fasting labs prior followup with Marina Gibson [facility] 12/26/2017 Referred elsewhere for physical therapy service [...] care recommended Pre-op consult for surgery with aMrina Gibson RPA 04/20/2016 History of fundoscopic exam [...] Care Managment MODERATE complexity with Marina Gibson [facility] 07/14/2015 Reassurance given to patient that this does not appear to be temporal arteritis and she does not require prednisone taper or further workup. Subconjunctival hemorrhage appears to be resolving. Will continue to monitor symptoms and follow up with worsening or persistent symptoms, questions or concerns. Otherwise keep next sick visit with Marina Gibson [facility] 12/22/2014 Ordered elevate head of bed followup with Matt tee MD 08/28/2014 Ordered referral by mental health counselor FREEDOM jacob owup with Matt Huynh MD 08/28/2014 Ordered psychiatric [...] if issues arise new patient with Marina M Paige [facility] 06/17/2014 Assessments Includes: Assessments for all patient encounters Findings Encounter Date Adjustment disorder with anxiety Transitional Care Man [...] abx, most recently levaquin followup with Marina Gibson [facility] 04/07/2020 Pneumonia with likely underlying COPD sick visit with [facility] 03/02/2020 Deltoid muscle strain ; left sick visit with [facility] 12/19/2019 Pneumonia which is resolved sick visit with [facility] 12/19/2019 Chronic major depression incident to previous visit- with [facility] 12/05/2019 Right middle zone pneumonia incident to previous visit - with [facility] 12/05/2019 Type 2 diabetes mellitus - uncomplicated, uncontrolled but improving incident to previous visit- with [facility] 12/05/2019 Acute bronchitis sick visit with [facility] 12/2019 Chronic major depression ANNUAL PE-followup exam/30 [...] major depression incident to previous visit- with [facility] 12/24/2018 Esophageal reflux incident to previous visit- with [facility] 12/24/2018 Psoriasis incident to previous visit- with [facility] 12/24/2018 Type 2 diabetes mellitus - uncomplicated, uncontrolled incident to previous visit- with [facility] 12/24/2018 Essential hypertension which is stable [...] 06/28/2018 Chronic major depression followup with Marina Gibson [facility] 0 12/26/2017 Type 2 diabetes mellitus - uncomplicated, uncontrolled followup with Marina Gibson [facility] 12/26/2017 Chronic major depression which is well-controlled MADDIE AL PE-followup exam/30 with Matt Huynh MD 06/26/2017 Chronic reflux esophagitis which is well-controlled AN NUAL PE-followup exam/30 with Matt Hyunh MD 06/26/2017 Psoriasis which is stable ANNUAL [...] 02/17/2017 Chronic major depression followup with Marina Gibson [facility] 0 10/12/2016 Chronic major depression sick visit with Marina Gibson [facility] 08/24/2016 Depression with anxiety sick visit with Marina Gibson [facility] 08/24/2016 Chronic reflux esophagitis ANNUAL PE-followup exam/30 with Matt Huynh MD 06/20/2016 Essential hypertension ANNUAL PE-followup exam/30 w jenise Huynh MD 06/20/2016 Mixed hyperlipoproteinemia which is [...] well-controlled Pre- op consult for surgery with [facility] 04/20/2016 Working diagnosis of visit for: preoperative exam Pre- op consult for surgery with [facility] 04/20/2016 Chronic major depression which is well-controlled [facility] Esophageal reflux which is well-controlled [facility] 02/12/2016 Type 2 diabetes mellitus which is improving [facility] Supraventricular tachycardia which is resolved Transit ional Care Management HIGH complexity with [facility] 12/15/2015 Type 2 diabetes mellitus - uncomplicated, uncontrolled followup with Matt Huynh MD 10/29/2015 Diverticulitis of colon without perforation or abscess which is improving Transitional Care Managment MODERATE complexity with Marina M [facility] 07/14/2015 Essential hypertension which is stable ANNUAL [...] the right eye sick visit with Marina Gaby Gibson [facility] 12/22/2014 Chronic major depression , improving followup with Marina Gaby sahuing RPA 10/31/2014 Esophageal reflux which is well-controlled followup with Heather Georgeing RPA 10/31/2014 Type 2 diabetes mellitus followup with Marina Gaby Gibson [facility] 0 10/31/2014 Chronic major depression followup with Matt hogan MD 08/28/2014 Esophageal reflux followup with Matt Huynh MD 08/28/2014 Type 2 diabetes mellitus which is inadequately control led followup with Matt Huynh MD 08/28/2014 Chronic major depression which is improving followup w jenise Huynh MD 08/07/2014 Esophageal reflux followup with Matt Huynh MD 08/07/2014 Possible esophageal stricture followup with Matt oseguera MD 08/07/2014 Chronic major depression followup with Marina Griffin [facility] 0 07/22/2014 Chronic major depression new patient with Marina Georgeing [facility] A 06/17/2014 Psoriasis new patient with Marina Georgeing [facility] 03/2014 Sarcoidosis new patient with Marina Georgeing [facility] 03/2014 Type 2 diabetes mellitus new patient with Marina Georgeing RP A 06/17/2014 Instructions Instructions not supported for this document typeNo Instructions Recorded Medical Equipment - Implanted Devices Includes: Current and historical DevicesNo Medical Equipment Recorded Medications Includes: Current and historical Medications Current Medications (continue as prescribed) LORazepam 0.5 MG Oral Tablet 06/11/2020 Provider: Matt Huynh MD Diagnosis: 1 PO QID prn #: [id number] MDD=4 Basaglar KwikPen 100 UNIT/ML Subcutaneous Solution Pen-injec [...] 32G X 4 MM Miscellaneous 01/24/2020 Provider: Marnia Gibson RPA Diagnosis: as directed use with Victoza pen BID hydroCHLOROthiazide 12.5 MG Oral Tablet 01/20/2020 Provider: Marina Gibson [facility] Diagnosis: 1 PO QD Viibryd 40 MG Oral Tablet 11/20/2019 Provider: Marina Gibson [facility] Diagnosis: 1 PO QD Ozempic (0.25 or [...] Microlet Lancets Miscellaneous 01/25/2019 Provider: Marina Gibson [facility] Diagnosis: Elvie Microlet 2 Lancing device with 50 lancets Calcitrene 0.005% External Ointment 06/28/2018 Prov ider: Matt Huynh MD Diagnosis: apply bid to affected area Aspirin 81 MG OR TABS 06/17/2014 Provider: Diagnosis: Past Medications on file Azithromycin 250 MG Oral Tablet 04/07/2020 - 05/19/2020 Prov ider: Marina Gibson RPA Diagnosis: as directed Take 2 tabs PO x 1 day, then 1 tab PO daily x 4 days. predniSONE 20 MG Oral Tablet 04/07/2020 - 05/19/2020 Provide r: Marina Gibson [facility] Diagnosis: 2 PO QD Levaquin 500 MG Oral Tablet 03/02/2020 - 05/19/2020 Provider : Marina Gibson [facility] Diagnosis: 1 PO QD Breo Ellipta 100-25 MCG/INH Inhalation Aerosol Powder Breath Activated 03/02/2020 - 03/30/2020 Provider: Diagnosis: 1 puff daily Enalapril Maleate 5 MG Oral Tablet 01/20/2020 - 06/11/2020 P rovider: Marina Gibson [facility] Diagnosis: 1 PO QD Medrol 4 MG Oral Tablet Therapy Pack 12/19/2019 - 05/19/2020 Provider: Marina Gibson RPA Diagnosis: as directed per package instructions Breo Ellipta 100-25 MCG/INH Inhalation Aerosol Powder Breath Activated 12/05/2019 - 12/19/2019 Provider: Marina Gibson [facility] Diagnosis: 1 puff daily Levaquin 500 MG Oral Tablet 12/05/2019 - 05/19/2020 Provider : Marina Gibson [facility] Diagnosis: 1 PO QD Azithromycin 250 MG Oral Tablet 10/14/2019 - 12/05/2019 Prov ider: Marina Gibson [facility] Diagnosis: as directed Take [...] Tablet 9 - 05/19/2020 Provider: Marina Gibson [facility] Diagnosis: 1 PO QD Victoza 18MG/3ML Subcutaneous Solution Pen-injector 03/18/20 19 - 07/01/2019 Provider: Marina Gibson [facility] Diagnosis: as directed - [...] Matt Huynh MD Diagnosis: 1 PO QPM Victoza 18 MG/3ML Solution Pen-injector 07/27/2016 - 017 Provider: Matt Huynh MD Diagnosis: as directed 1.2mg SQ QD Pantoprazole Sodium 40 MG OR TBEC 07/27/2016 - 08/07/2014 Pr ovider: Matt Huynh MD Diagnosis: OneTouch Delica Lancets Fine Miscellaneous (not specif [...] MD Diagnosis: 1 PO BID ReliOn Pen [place] 31G X 8 MM Miscellaneous (not speci [...] Recorded Vital Signs Includes: Vital Signs from 06/11/2019 through 06/11/2020 Vital Name 06/11/2020 04:28P 05/19/2020 01:50P 04/07/2020 09:06A 03/02/2020 03:45P 12/19/2019 02:30P Blood Pressure Sitting (mmHg) 121/79 99/55 100/68 82/50 Height (in) 61 61 61 61 61 Weight (lb) 192 181 190 194 200.375 Body Mass Index (kg/m2) 36.3 34.2 35.9 36.7 3 7.9 Body Surface Area (m2) 1.86 1.81 1.85 1.86 1. 89 Oxygen Saturation (%) 98 95 93 Flow Rate (l/min) 2 (Nasal Cannula) FiO2 (%) 28 Pulse Rate-Sitting (bpm) 90 90 110 88 Respiration Rate (breaths/min) 24 30 20 Temp-Oral (F) 98.7 Blood Pressure Sitting R 110/62 BP Cuff Size Regular Vital Name 12/05/2019 08:15A 10/14/2019 01:41P 07/01/2019 10:33A Blood Pressure Sitting (mmHg) 98/50 143/77 Height (in) 61 61 61 Weight (lb) 202 215 Body Mass Index (kg/m2) 38.2 40.6 Body Surface Area (m2) 1.90 1.95 Oxygen Saturation (%) 96 95 Pulse Rate-Sitting (bpm) 88 80 78 Respiration Rate (breaths/min) 26 26 Temp-Oral (F) 98.2 97.3 Results Includes: Results from 06/11/2019 through 06/11/2020 [facility] Ordered by Matt Huynh MD on 05/22/2020 [address] [place], [address] Collected: 05/22/2020 Reported: 05/22/2020 12:47 tel :[phone] ext. 1500 Urea Nitrogen 26 mg/dl (6-20) [...] Matt Huynh MD on 05/22/2020 [address] [place], [address] Collected: 05/22/2020 Reported: 05/22/2020 12:47 tel :[phone] ext. 1500 GRAN# 4.2 /mm3 (2.5-7.5) None [...] Ordered by Matt Huynh MD on 12/05/[address] [place] [address], [address] Collected: 12/05/2019 Reported: 12/05/2019 09:33 tel :[phone] ext. 1500 Hgba1c 7.3 na (5.0-6.0) H (High) Note: Responsible Observer: KM Reviewed by Marina Gibson RPA on 12/04; All test results are final unless otherwise noted. ACR [facility] Ordered by Matt Huynh MD on 07/01/2019 [address] [place], [address] Collected: 07/01/2019 Reported: 07/01/2019 13:41 tel :[phone] ext. 1500 ACR 35.7 ug/mg (0-30) H (High) Note: Responsible Observer: AW Micro alb 36.5 mg/L (0-30) H (High) Note: Responsible Observer: AW Urine Creat 102.4 mg/dl (34-300) None Note: Responsible Observer: AW Reviewed by Matt Huynh MD on 07/01/2019; All test results are final unless otherwise noted. CBC [facility] Ordered by Matt Huynh MD on 07/01/2019 [address] [place], [address] Collected: 07/01/2019 Reported: 07/01/2019 13:41 tel :[phone] ext. 1500 GRAN# 2.4 /mm3 (2.5-7.5) L [...] test results are final unless otherwise noted. [facility] In-house [facility] Ordered by Matt Huynh MD on 07/01/[address] [place] [address], [address] Collected: 07/01/2019 Reported: 07/01/2019 13:41 tel : [...] Matt Huynh MD on 07/01/2019 [address] [place], [address] Collected: 07/01/2019 Reported: 07/01/2019 13:41 tel :[phone] ext. 1500 Cholesterol 172 mg/dl (135-200) None [...] Matt Huynh MD on 07/01/2019 [address] [place], [address] Collected: 07/01/2019 Reported: 07/01/2019 13:41 tel :[phone] ext. 1500 BLOOD Negative Brayan/uL (NEGATIVE) None [...] Matt Huynh MD on 07/01/2019 [address] [place], [address] Collected: 07/01/2019 Reported: 07/01/2019 13:41 tel : [...] Procedures and Surgical History Includes: Procedures from 06/11/2019 through 06/11/2020 Procedures Code Diagnosis Performing Provider Service Location Service Date BMP-Basic Metabolic Profile 43772 Type 2 diabe deborah mellitus without complications, Gastro-esophageal reflux disease without esophagitis Matt Huynh MD [facility], [facility] 05/22/2020 CBC 00406 Type 2 diabetes denise itus without complications, Gastro-esophageal reflux disease without esophagitis Matt Huynh MD [facility], [facility] 05/22/2020 Venipuncture (routine) 37729 Type 2 diabetes m ellitus without complications, Gastro-esophageal reflux disease without esophagitis Matt Huynh MD [facility], [facility] 05/22/2020 no charge procedure [place] Malignant neoplasm o f unsp part of right bronchus or lung, Type 2 diabetes mellitus without complications, Gastro-esophageal reflux disease without esophagitis Matt Huynh MD [facility], [facility] 05/19/2020 HgbA1C 02447 Type 2 diabetes mellitus without complications Matt Huynh MD [facility], [facility] 12/05/2019 -collection of capillary blood (fingerstick, heel ) 43782 Type 2 diabetes mellitus without complications Matt Huynh MD [facility], [facility] 12/05/2019 Brief Emotional Behavior Assessment (Distinct Seperate servi ce-same day) 45612 Screening for Mental Health/Behavioral Disorder, Unspecified Matt Huynh MD [facility], [facility] 07/01/2019 ADMINISTRATION 2+ IMMUNIZATION (adult) 02749 Encounter for immunization Matt Huynh MD [facility], [facility] 07/01/2019 PREVNAR 13 -pneumococcal /otits media vaccine 68194 En counter for immunization Matt Huynh MD [facility], [facility] 07/01/2019 ADMINISTRATION 1-IMMUNIZATION(adult) 11327 Encounter f or immunization Matt Huynh MD [facility], [facility] 07/01/2019 FLUZONE/ multi-dose ( 6mos -older) 10866 Encounter for immunization Matt Huynh MD [facility], [facility] 07/01/2019 Urinalysis-Lab processed 93903 Type 2 diabetes mellitus without complications, Gastro-esophageal reflux disease without esophagitis Matt Huynh MD [facility], [facility] 07/01/2019 Fasting Lipid Profile 59568 Type 2 diabetes me llitus without complications, Gastro-esophageal reflux disease without esophagitis Matt Huynh MD [facility], [facility] 07/01/2019 CMP-Complete Metabolic Profile 86385 Type 2 di abetes mellitus without complications, Gastro-esophageal reflux disease without esophagitis Matt Huynh MD [facility], [facility] 07/01/2019 CBC 02713 Type 2 diabetes denise itus without complications, Gastro-esophageal reflux disease without esophagitis Matt Huynh MD [facility], [facility] 07/01/2019 Creatinine: URINE 48427 Type 2 diabetes denise itus without complications, Gastro- esophageal reflux disease without esophagitis Matt Huynh MD [facility], [facility] 07/01/2019 Mircro Alb urine 56339 Type 2 diabetes denise itus without complications, Gastro- esophageal reflux disease without esophagitis Matt Huynh MD [facility], [facility] 07/01/2019 HgbA1C 39602 Type 2 diabetes denise itus without complications, Gastro-esophageal reflux disease without esophagitis Matt Huynh MD [facility], [facility] 07/01/2019 Venipuncture (routine) 73973 Type 2 diabetes m ellitus without complications, Gastro-esophageal reflux disease without esophagitis Matt Huynh MD [facility] 07/01/2019 Surgical History Last Updated History of hysterectomy 197906/17/2014 History of cataract surgery ; Bilateral 2002,03/2014 History of inguinal hernia repair ; Right 1980 014 History of tonsillectomy 06/17/2014 Medical History [...] supported for this document type Description Anxiety Chronic major depression Functional Status Functional Status not supported for [...] injectable 3 06/16/2015 [facility], [facility] 4 04/20/2016 Left Deltoid Complete (Administered) [facility] Note: VIS Given Influenza, seasonal, injectable 5 07/01/2019 Left Deltoid Complete (Administered) [facility] PCV (Pneumovax 23) 1 03/20/2012 Complete (Reported ) Patient PCV (Pneumovax 23) 2 02/17/2017 Complete (Reported ) Patient [id number] 1 07/01/2019 Right Deltoid Complete (Admin istered) [facility] Tdap (> 7 yrs) 1 02/17/2017 Complete [...] 12:00AM Act smiley Encounters Includes: Encounters from 06/11/2019 through 06/11/2020 Encounter Provider Location Date Check-In Time Check-Out Time D iagnosis Transitional Care Management HIGH complexity Matt gardiner MD [facility], [facility] 06/11/2020 4:16PM 5:12PM Lung Nemesio plasm Malignant (Non- small Cell) Stage IV, Tachycardia Supraventricular, Major Depression Chronic, Adjustment Disorder with Anxiety TCMNV phone call- NO CHARGE Matt Huynh MD 06/11/2020 05/19/2020 4:00PM 05/19/2020 11:59PM Transitional Care Management HIGH complexity Matt gardiner MD [facility], [facility] 05/19/2020 1:24PM 2:47PM Lung Nemesio plasm Adenocarcinoma Metastatic To, Diabetes Mellitus Type 2 - Uncomplicated, Controlled By Insulin TCM[facility] phone call- NO CHARGE Matt Huynh MD 05/19/2020 04/07/2020 11:49AM 04/07/2020 11:59PM followup Marina Griffin [facility], [facility] 04/07 8:53AM 9:33AM [facility]neum[facility]2020 020 4:11PM 03/02/2020 11:59PM [facility] 03/02/2020 3:29PM 4:03PM Pneumonia [Patient Encounter] [facility] 03/02/2020 020 9:39AM 12/19/2019 11:59PM sick visit Marina [facility] 12/19/2019 2:02PM 3:09PM Shoulder Strain Deltoid Musc le, Pneumonia incident to previous visit- [facility], [facility] 12/05/2019 8:12AM 9:16AM Pneumonia Right Middle Zone, Diabetes Mellitus Type 2 - Uncomplicated, Uncontrolled, Major Depression Chronic sick visit Marina Gibson [facility], [facility] 0 10/14/2019 1:28PM 1:58PM Acute Bronchitis [Patient Encounter] Matt Huynh MD 09/23/2019 1 09/01/2018 4:54PM 07/01/2019 11:59PM ANNUAL PE-followup exam/30 Matt Huynh MD [facility], [facility] 07/01/2019 10:12AM 11:19AM Routine History and Physical Senior Citizen (65-80 Yrs), Diabetes Mellitus Type 2 - Uncomplicated, Uncontrolled, Essential Hypertension, Obesity Morbid Due To Excess Calories, Major Depression Chronic [Patient Encounter] Matt Huynh MD 07/01/2019 0 12/24/2018 8:40AM 12/24/2018 11:59PM Insurance Includes: Active Insurance Policies Plan Name Member ID Group # Subscriber Relationship Effective Da deborah 1 - R Insurance [id number] Jean-Pierre, Mohamud R Advance Directives Includes: Current Advance DirectivesNo Advance Directives Recorded Health Concerns Includes: Active Health ConcernsNo Active Health Concerns Recorded Goals Includes: Active GoalsNo Active Goals Recorded Interventions Includes: Interventions for active GoalsNo Interventions Recorded Evaluations & Outcomes Includes: Evaluations & Outcomes for active GoalsNo Outcomes Recorded
--- OUTSIDE RECORDS SUMMARY | 2020-08-05 07:01 | CCD ---
Author Author [facility] Organization [facility] Address [address] [place] [address] Phone Care Team Providers Care Millinery Teacher Name Role Phone Koffi FERNANDEZ, Ramya Guzman Unavailable [phone] Amina FERNANDEZ, Matt Moreno PP [phone] Landy Eduar Unavailable [phone] ext. [phone] Rony FERNANDEZ, Michael Unavailable [phone] Misty FERNANDEZ, Lizandro Unavailable Unavailable Lucia FERNANDEZ, [...] Type 2 06/17/2014 - 12:00AM Marina Gibson [facility] Active Note: Unchanged Psoriasis 06/17/2014 - 12:00AM Marina Gibson [facility] Active Note: Unchanged Sarcoidosis 06/17/2014 - 12:00AM Marina Gibson [facility] Active Note: Unchanged Plan of Treatment Care Programs [facility] - [facility] Future Appointments Date Time Location Provider followup 06/29/2020 9:45AM [facility], [facility] Matt Huynh MD Findings Encounter Date [...] her condition worsens followup with Marina Gibson [facility] 04/07/2020 Tylenol for discomfort or fever. Push fluids and rest. CXR pending. 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 See back in 1 month. Call if persistent or high fever, increased work of breathing, persistent pain, if sxs not improving, or if concerned sick visit with Marina Gibson [facility] 03/02/2020 Tylenol for discomfort or fever. Push fluids and rest. Will treat as above. No changes to medical regimen. Call if persistent or high fever, increased work of breathing, persistent pain, if sxs not improving, or if concerned. See back in 2-4 weeks to ensure resolution in symptoms incident to previous visit- with Marina aGby Gibson [facility] 12/05/2019 Tylenol for discomfort or fever. Push fluids and rest. Call if persistent or high fever, increased work of breathing, persistent pain, if sxs not improving, or if concerned sick visit with Marina Gaby Paige [facility] 10/14/2019 Following clinical practice guideline A DA/EASD 2012 Position Statement and the Standards of Medical Care in Diabetes-2015 ADA. Individualized more or less stringent management goals(HbA1c 6.5%-8.0%, fasting KI593-143 mg/dL and ppBG 175-225mg/dL) were reviewed with the pt after assessing attitude, motivation, potential risks, disease duration, life expectancy,and comorbiditities. Will increase lantus to 45 units in the morning and focus on improved diet with various suggestions given today. Recheck a1c in 3 months incident to previous visit- with Marina Gibson [facility] 12/24/2018 Treatment goals and the natural [...] fasting labs prior followup with Marina Gibson [facility] 12/26/2017 Referred elsewhere for physical therapy [...] Ordered referral by mental health counselor FREEDOM ramirezup with Matt Huynh MD 08/28/2014 Ordered psychiatric [...] if issues arise new patient with Marina Gaby Paige [facility] 06/17/2014 Assessments Includes: Assessments for all patient encounters Findings Encounter Date Adenocarcinoma of the lung with metastasis Hilum [...] abx, [facility]neumonia with likely underlying [facility] Deltoid muscle strain ; left sick visit with Marina Gibson [facility] 12/19/2019 Pneumonia which is resolved [facility] Chronic major depression [facility] Right middle zone pneumonia [facility] Type 2 diabetes mellitus - uncomplicated, [...] Huynh MD 06/28/2018 Insulin-treated, non-insulin dependent diabetes [facility] which is stable ANNUAL PE-followup exam/30 with [...] 06/28/2018 Chronic major depression followup with Marina M [facility] 0 12/26/2017 Type 2 diabetes mellitus - uncomplicated, uncontrolled followup with Marina M [facility] 12/26/2017 Chronic major depression which [...] [facility] Working diagnosis of visit for: preoperative exam [facility] Chronic major depression which is well-controlled foll owup with Marina M [facility] 02/12/2016 Esophageal reflux which is well-controlled followup with Dya na M [facility] 02/12/2016 Type 2 diabetes mellitus which is improving followup with Dy Ann [facility] 02/12/2016 Supraventricular tachycardia which is resolved Transit ional Care Management HIGH complexity with Marina [facility] 12/15/2015 Type 2 diabetes mellitus - uncomplicated, uncontrolled followup with Matt Huynh MD 10/29/2015 Diverticulitis of colon without perforation or abscess which is improving Transitional Care Managment MODERATE complexity with Marina George[facility] 07/14/2015 Essential hypertension which is stable [...] the right eye sick visit with Marina [facility] 12/22/2014 Chronic major depression , improving followup with Marina [facility] 10/31/2014 Esophageal reflux which is well-controlled followup with Dya na M [facility] 10/31/2014 Type 2 diabetes mellitus followup with Marina [facility] 0 10/31/2014 Chronic major depression [...] 08/07/2014 Chronic major depression followup with Marina [facility] 0 07/22/2014 Chronic major depression new patient with Marina [facility] 06/17/2014 Psoriasis new patient with Marina Griffin [facility] 03/2014 Sarcoidosis new patient with Marina Griffin [facility] 03/2014 Type 2 diabetes mellitus new patient with Marina Griffin [facility] 06/17/2014 Instructions Instructions not supported for this document typeNo Instructions Recorded Medical Equipment - Implanted Devices Includes: Current and historical DevicesNo Medical Equipment Recorded Medications Includes: Current and historical Medications Current Medications (continue as prescribed) Basaglar KwikPen 100 UNIT/ML Subcutaneous Solution Pen-injec tor 02/11/2020 Provider: Marina [facility] Diagnosis: as directed 45 units SQ daily or as directed MDD=60 units Metoprolol Succinate ER 50 MG Oral Tablet Extended Release 2 4 Hour 02/05/2020 Provider: Marina [facility] Diagnosis: 1 PO QD Jardiance 10 MG Oral Tablet 02/05/2020 Provider: Marina Gibson [facility] Diagnosis: 1 PO QD BD Pen Needle Isabel U/F 32G X 4 MM Miscellaneous 01/24/2020 Provider: Marina Gibson [facility] Diagnosis: as directed use with Victoza pen BID hydroCHLOROthiazide 12.5 MG Oral Tablet 01/20/2020 Provider: Marina [facility] Diagnosis: 1 PO QD Enalapril Maleate 5 MG Oral Tablet 01/20/2020 Provi kedar: Marina Gibson [facility] Diagnosis: 1 PO QD [...] Diagnosis: 1 PO QPM Victoza 18 MG/3ML Subcutaneous Solution Pen-injector 020 Provider: Matt Huynh MD Diagnosis: as directed - 1.2mg SQ QD Pantoprazole Sodium 40MG Oral Tablet Delayed Release [...] Marina [facility] Diagnosis: 2 PO QD Breo Ellipta 100-25 MCG/INH Inhalation Aerosol Powder Breath Activated 03/02/2020 - 03/30/2020 Provider: Diagnosis: 1 puff daily Levaquin 500 MG Oral Tablet 03/02/2020 - 05/19/2020 Provider : Marina [facility] Diagnosis: 1 PO QD Medrol 4 MG Oral Tablet Therapy Pack 12/19/2019 - 05/19/2020 Provider: Marina [facility] Diagnosis: as directed per package instructions Breo Ellipta 100-25 MCG/INH Inhalation Aerosol Powder Breath Activated 12/05/2019 - 12/19/2019 Provider: Marina [facility] Diagnosis: 1 puff daily Levaquin 500 MG Oral Tablet 12/05/2019 - 05/19/2020 Provider : Marina [facility] Diagnosis: 1 PO QD Azithromycin 250 MG Oral Tablet 10/14/2019 - 12/05/2019 Prov ider: Marina [facility] Diagnosis: as directed Take 2 tabs PO x 1 day, then 1 tab PO daily x 4 days. Enalapril Maleate 5 MG Oral Tablet 07/29/2019 - 12/05/2019 Jorge jacksonder: Matt Huynh MD Diagnosis: 1 PO QD hydroCHLOROthiazide 12.5 MG Oral Tablet 07/29/2019 - 020 Provider: Matt Huynh MD Diagnosis: 1 PO QD Enalapril-hydroCHLOROthiazide 5-12.5MG Oral Tablet 9 - 05/19/2020 Provider: Marina Gibson [facility] Diagnosis: 1 PO QD Victoza 18MG/3ML Subcutaneous Solution Pen-injector 03/18/20 19 - 07/01/2019 Provider: Marina [facility] Diagnosis: as directed [...] 5-12.5 MG TABS 10/02/2017 - Provider: Matt Hyunh MD Diagnosis: 1 PO QD Lovastatin 20 [...] MD Diagnosis: 1 PO BID ReliOn Pen [place] 31G X 8 MM Miscellaneous (not speci [...] Signs from 06/11/2019 through 06/11/2020 Vital Name 05/19/2020 01:50P 04/07/2020 09:06A 03/02/2020 03:45P 12/19/2019 02:30P 12/05/2019 08:15A Blood Pressure Sitting (mmHg) 99/55 100/68 82/50 98/50 Pulse Rate-Sitting (bpm) 90 90 110 88 88 Height (in) 61 61 61 61 61 Weight (lb) 181 190 194 200.375 202 Body Mass Index (kg/m2) 34.2 35.9 36.7 37.9 3 8.2 Body Surface Area (m2) 1.81 1.85 1.86 1.89 1. 90 Respiration Rate (breaths/min) 24 30 20 26 Oxygen Saturation (%) 95 93 96 Temp-Oral (F) 98.7 98.2 Blood Pressure Sitting R 110/62 BP Cuff Size Regular Vital Name 10/14/2019 01:41P 07/01/2019 10:33A Blood Pressure Sitting (mmHg) 143/77 Pulse Rate-Sitting (bpm) 80 78 Height (in) 61 61 Weight (lb) 215 Body Mass Index (kg/m2) 40.6 Body Surface Area (m2) 1.95 Respiration Rate (breaths/min) 26 Oxygen Saturation (%) 95 Temp-Oral (F) 97.3 Results Includes: Results from 06/11/2019 through 06/11/2020 [facility] Doctor's In-house Laboratory Ordered by Matt Huynh MD on 05/22/[address] [place] [address], [id number] Collected: 05/22/2020 Reported: 05/22/2020 12:47 tel :[phone] ext. 1500 Urea Nitrogen 26 mg/dl (6-20) [...] Ordered by Matt Huynh MD on 05/22/[address] [place] [address], [id number] Collected: 05/22/2020 Reported: 05/22/2020 12:47 tel :[phone] ext. 1500 GRAN# 4.2 /mm3 (2.5-7.5) None [...] Matt Huynh MD on 12/05/2019 [address] [place], [address] Collected: 12/05/2019 Reported: 12/05/2019 09:33 tel :[phone] ext. 1500 Hgba1c 7.3 na (5.0-6.0) H (High) Note: Responsible Observer: KM Reviewed by Marina Gibson [facility] on 12/04; All test results are final unless otherwise noted. ACR Doctor's In-house Laboratory Ordered by Matt Huynh MD on 07/01/2019 [address] [place], [address] Collected: 07/01/2019 Reported: 07/01/2019 13:41 tel :[phone] ext. 1500 ACR 35.7 ug/mg (0-30) H (High) Note: Responsible Observer: AW Micro alb 36.5 mg/L (0-30) H (High) Note: Responsible Observer: AW Urine Creat 102.4 mg/dl (34-300) None Note: Responsible Observer: AW Reviewed by Matt Huynh MD on 07/01/2019; All test results are final unless otherwise noted. CBC [facility] In-house Laboratory Ordered by Matt Huynh MD on 07/01/2019 [address] [place], [address] Collected: 07/01/2019 Reported: 07/01/2019 13:41 tel :[phone] ext. 1500 GRAN# 2.4 /mm3 (2.5-7.5) L [...] test results are final unless otherwise noted. [facility] Doctor's In-house Laboratory Ordered by Matt Huynh MD on 07/01/[address] [place] [address], [id number] Collected: 07/01/2019 Reported: 07/01/2019 13:41 tel : [...] Ordered by Matt Huynh MD on 07/01/[address] [place] [address], [address] Collected: 07/01/2019 Reported: 07/01/2019 13:41 tel : ext. 1500 Cholesterol 172 mg/dl (135-200) None [...] Matt Huynh MD on 07/01/2019 [address] [place], [address] Collected: 07/01/2019 Reported: 07/01/2019 13:41 tel :[phone] ext. 1500 BLOOD Negative Brayan/uL (NEGATIVE) None [...] Matt Huynh MD on 07/01/2019 [address] [place], [address] Collected: 07/01/2019 Reported: 07/01/2019 13:41 tel : ext. 1500 Hgba1c 8.0 na (5.0-6.0) H (High) Note: Responsible Observer: AW Reviewed by Matt Huynh MD on 07/01/2019; All test results are final unless otherwise noted. History of Present Illness History of Present Illness not supported for this document typeNo History of Present Illness Recorded Social History Description Last Updated Under stress Less so recently 06/27/2017 Currently 06/17/2014 No consumption of alcohol 06/17/2014 Not using drugs 06/17/2014 Tobacco non-user Quit 1990; 20 pack year history 03/2014 Smoking Status Unknown Procedures and Surgical History Includes: Procedures from 06/11/2019 through 06/11/2020 Procedures Code Diagnosis Performing Provider Service Location Service Date BMP-Basic Metabolic Profile 32128 Type 2 diabe deborah mellitus without complications, Gastro-esophageal reflux disease without esophagitis Matt Huynh MD [facility], [facility] 05/22/2020 CBC 47768 Type 2 diabetes denise itus without complications, Gastro-esophageal reflux disease without esophagitis Matt Huynh MD [facility], [facility] 05/22/2020 Venipuncture (routine) 89556 Type 2 diabetes m ellitus without complications, Gastro-esophageal reflux disease without esophagitis Matt Huynh MD [facility], [facility] 05/22/2020 no charge procedure [place] Malignant neoplasm o f unsp part of right bronchus or lung, Type 2 diabetes mellitus without complications, Gastro-esophageal reflux disease without esophagitis Matt Huynh MD [facility], [facility] 05/19/2020 HgbA1C 36793 Type 2 diabetes mellitus without complications Matt Huynh MD [facility], [facility] 12/05/2019 -collection of capillary blood (fingerstick, heel ) 19180 Type 2 diabetes mellitus without complications Matt Huynh MD [facility], [facility] 12/05/2019 Brief Emotional Behavior Assessment (Distinct Julio César servi ce-same day) 65656 Screening for Mental Health/Behavioral Disorder, Unspecified Matt Huynh MD [facility], [facility] 07/01/2019 ADMINISTRATION 2+ IMMUNIZATION (adult) 44357 Encounter for immunization Matt Huynh MD [facility], [facility] 07/01/2019 PREVNAR 13 -pneumococcal /otits media vaccine 24169 En counter for immunization Matt Huynh MD [facility], [facility] 07/01/2019 ADMINISTRATION 1-IMMUNIZATION(adult) 80783 Encounter f or immunization Matt Huynh MD [facility], [facility] 07/01/2019 FLUZONE/ multi-dose ( 6mos -older) 56834 Encounter for immunization Matt Huynh MD [facility], [facility] 07/01/2019 Urinalysis-Lab processed 18883 Type 2 diabetes mellitus without complications, Gastro-esophageal reflux disease without esophagitis Matt Huynh MD [facility], [facility] 07/01/2019 Fasting Lipid Profile 33976 Type 2 diabetes me llitus without complications, Gastro-esophageal reflux disease without esophagitis Matt Huynh MD [facility], [facility] 07/01/2019 CMP-Complete Metabolic Profile 34085 Type 2 di abetes mellitus without complications, Gastro-esophageal reflux disease without esophagitis Matt Huynh MD [facility], [facility] 07/01/2019 CBC 85391 Type 2 diabetes denise itus without complications, Gastro-esophageal reflux disease without esophagitis Matt Huynh MD [facility], [facility] 07/01/2019 Creatinine: URINE 84047 Type 2 diabetes denise itus without complications, Gastro- esophageal reflux disease without esophagitis Matt Huynh MD [facility], [facility] 07/01/2019 Mircro Alb urine 89293 Type 2 diabetes denise itus without complications, Gastro- esophageal reflux disease without esophagitis Matt Huynh MD [facility], [facility] 07/01/2019 HgbA1C 46906 Type 2 diabetes denise itus without complications, Gastro-esophageal reflux disease without esophagitis Matt Huynh MD [facility], [facility] 07/01/2019 Venipuncture (routine) 22300 Type 2 diabetes m ellitus without complications, Gastro-esophageal reflux disease without esophagitis Matt Huynh MD [facility], [facility] 07/01/2019 Surgical History Last Updated History [...] health ; CVA 06/17/2014 Second sister in [facility] : Alcoholic 06/17/2014 Sister ; Colon Cancer 06/17/2014 Third brother in [facility] ; Carotid Artery Stenosis , Reflux 06/17/2014 [...] injectable 3 06/16/2015 Left Arm Complete (Administered) [facility] Influenza, seasonal, injectable 4 04/20/2016 Left Deltoid Complete (Administered) [facility] Note: VIS Given Influenza, seasonal, injectable 5 07/01/2019 Left Deltoid Complete (Administered) [facility] PCV (Pneumovax 23) 1 03/20/2012 Complete (Reported ) Patient PCV (Pneumovax 23) 2 02/17/2017 Complete (Reported ) Patient [id number] 1 07/01/2019 Right Deltoid Complete (Admin istered) [facility] Tdap (> 7 yrs) 1 02/17/2017 Complete [...] Care Management HIGH complexity Matt gardiner MD [facility] 06/11/2020 4:16PM 05/19/2020 11:59PM [facility] phone call- NO CHARGE Matt Huynh MD 06/11/2020 05/19/2020 4:00PM 05/19/2020 11:59PM Transitional Care Management HIGH complexity Matt gardiner MD [facility], [facility] 05/19/2020 1:24PM 2:47PM Lung Nemesio plasm Adenocarcinoma Metastatic To, Diabetes Mellitus Type 2 - Uncomplicated, Controlled By Insulin [facility] phone call- NO CHARGE Matt Huynh MD 05/19/2020 04/07/2020 11:49AM 04/07/2020 11:59PM followup [facility] 04/07 8:53AM 9:33AM Pneumonia [Patient Encounter] [facility] 04/01/2020 020 4:11PM 03/02/2020 11:59PM sick visit [facility] 0 03/02/2020 3:29PM 4:03PM Pneumonia [Patient Encounter] [facility] 03/02/2020 020 9:39AM 12/19/2019 11:59PM sick visit [facility] 0 12/19/2019 2:02PM 3:09PM Shoulder Strain Deltoid Musc le, Pneumonia incident to previous visit- [facility] 12/05/2019 8:12AM 9:16AM Pneumonia Right Middle Zone, Diabetes Mellitus Type 2 - Uncomplicated, Uncontrolled, Major Depression Chronic sick visit [facility] 0 10/14/2019 1:28PM 1:58PM Acute Bronchitis [Patient Encounter] Matt Huynh MD 09/23/2019 1 09/01/2018 4:54PM 07/01/2019 11:59PM ANNUAL PE-followup Matt Huynh MD [facility], [facility] 07/01/2019 10:12AM 11:19AM Routine History and Physical Senior Citizen (65-80 Yrs), Diabetes Mellitus Type 2 - Uncomplicated, Uncontrolled, Essential Hypertension, Obesity Morbid Due To Excess Calories, Major Depression Chronic [Patient Encounter] Matt Huynh MD 07/01/2019 0 12/24/2018 8:40AM 12/24/2018 11:59PM Insurance Includes: Active Insurance Policies Plan Name Member ID Group # Subscriber Relationship Effective Da deborah 1 - [employer] Insurance [id number] Mohamud Morejon Advance Directives Includes: Current Advance DirectivesNo Advance Directives Recorded Health Concerns Includes: Active Health ConcernsNo Active Health Concerns Recorded Goals Includes: Active GoalsNo Active Goals Recorded Interventions Includes: Interventions for active GoalsNo Interventions Recorded Evaluations & Outcomes Includes: Evaluations & Outcomes for active GoalsNo Outcomes Recorded
--- OUTSIDE RECORDS SUMMARY | 2020-08-05 07:01 | CCD ---
Author Author [facility] Organization [facility] Address [address] [place] [address] Phone Care Team Providers Care Gold Tooler Name Role Phone Koffi FERNANDEZ, Ramya Guzman Unavailable [phone] Amina FERNANDEZ, Matt Moreno PP [phone] Landy Eduar Unavailable [phone]. [phone] Rony FERNANDEZ, Michael Unavailable [phone] Misty FERNANDEZ, Lizandro Unavailable Unavailable Lucia FERNANDEZ, [...] Diabetes Mellitus Type 2 06/17/2014 - 12:00AM [facility] Active Note: Unchanged Psoriasis 06/17/2014 - 12:00AM [facility] Active Note: Unchanged Sarcoidosis 06/17/2014 - 12:00AM [facility] Active Note: Unchanged Plan of Treatment Care Programs NCQA - [facility] Future Appointments Date Time Location Provider followup 06/29/2020 9:45AM [facility], [facility] Matt Huynh MD Findings Encounter Date Follow-up visit date 05/19/2020 at 1:[address] Huynh for TCM 7 TCMNV phone call- NO CHARGE with Matt Huynh MD 05/19/2020 Transitional care management services wi high complexity decision making She will be seen by Lindsay on 05/19/2020 at 1:45 p.m. This appt is within 2 business days of discharge which meets requirements for a TCM7 visit TCMNV phone call- NO CHARGE with Matt Huynh MD 05/19/2020 Discussed treatment plan with the [facility] ent. She is nontoxic and without fever, chills or sweats. Concerned that infiltrates could be of a non-infectious origin. Will refer for STEPHANIE appointment with pulmonology, she is agreeable. She will seek immediate treatment through an ER setting if her condition worsens followup with [facility] 04/07/2020 Tylenol for discomfort or fever. Push fluids and rest. CXR pending. 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 See back in 1 month. Call if persistent or high fever, increased work of breathing, persistent pain, if sxs not improving, or if concerned sick visit with [facility] 03/02/2020 Tylenol for discomfort or fever. Push fluids and rest. Will treat as above. No changes to medical regimen. Call if persistent or high fever, increased work of breathing, persistent pain, if sxs not improving, or if concerned. See back in 2-4 weeks to ensure resolution in symptoms incident to previous visit- with [facility] 12/05/2019 Tylenol for discomfort or fever. Push fluids and rest. Call if persistent or high fever, increased work of breathing, persistent pain, if sxs not improving, or if concerned sick visit with [facility] 10/14/2019 Following clinical practice guideline A DA/EASD 2012 Position Statement and the Standards of Medical Care in Diabetes-2015 ADA. Individualized more or less stringent management goals(HbA1c 6.5%-8.0%, fasting CY893-853 mg/dL and ppBG 175-225mg/dL) were reviewed with the pt after assessing attitude, motivation, potential risks, disease duration, life expectancy,and comorbiditities. Will increase lantus to 45 units in the morning and focus on improved diet with various suggestions given today. Recheck a1c in 3 months incident to previous visit- with Marina Gibson [facility] 12/24/2018 Treatment goals and the natural histor [...] fasting labs prior followup with Marina Gibson [facility] 12/26/2017 Referred elsewhere for physical therapy [...] Pre-op consult for surgery with Marina Gibson [facility] 04/20/2016 The Preoperative History and Physical c [...] comple xity with Marina Gibson [facility] 12/15/2015 Patient making good improvement in sym [...] MODERATE complexity with Marina Gibson [facility] 07/14/2015 Reassurance given to patient that [...] issues arise new patient with Marina Gaby Gibson [facility] 06/17/2014 Assessments Includes: Assessments for all [...] to previous visit- with Dy Ann Gibson [facility] 12/05/2019 Right middle zone pneumonia incident to previous visit - with Marina M Gibson [facility] 12/05/2019 Type 2 diabetes mellitus - uncomplicated, uncontrolled but improving incident to previous visit- with Marina M [facility] 12/05/2019 Acute bronchitis sick visit with Marina M Gibson [facility] 04/12/2019 Chronic major depression ANNUAL PE-followup exam/30 w jenise Huynh MD 07/01/2019 Essential hypertension ANNUAL PE-followup exam/30 w jenise Huynh MD 07/01/2019 Morbid obesity due to [...] Huynh MD 06/28/2018 Insulin-treated, non-insulin dependent diabetes mell us which is stable ANNUAL PE-followup exam/30 [...] depression which is improving followup w jenise Matt Huynh MD 02/17/2017 Essential hypertension which [...] for surgery with Marina Gibson [facility] 04/20/2016 Chronic major depression which [...] major depression , improving followup with Marina sahuing [facility] 10/31/2014 Esophageal reflux which is [...] Chronic major depression new patient with Marina Gibson [facility] 06/17/2014 Psoriasis new patient with Marina Gibson [facility] 03/2014 Sarcoidosis new patient with Marina Gibson [facility] 03/2014 Type 2 diabetes mellitus new patient with Marina Gibson [facility] 06/17/2014 Instructions Instructions not supported for this document typeNo Instructions Recorded Medical Equipment - Implanted Devices Includes: Current and historical DevicesNo Medical Equipment Recorded Medications Includes: Current and historical Medications Current Medications (continue as prescribed) Basaglar KwikPen 100 UNIT/ML Subcutaneous Solution Pen-injec tor 02/11/2020 Provider: Marina Gibson [facility] Diagnosis: as directed 45 units SQ daily or as directed MDD=60 units Metoprolol Succinate ER 50 MG Oral Tablet Extended Release 2 4 Hour 02/05/2020 Provider: Marina Gibson [facility] Diagnosis: 1 PO QD Jardiance 10 MG Oral Tablet 02/05/2020 Provider: Marina Gibson [facility] Diagnosis: 1 PO QD BD Pen Needle Isabel U/F 32G X 4 MM Miscellaneous 01/24/2020 Provider: Marina Gibson [facility] Diagnosis: as directed use with Victoza pen BID hydroCHLOROthiazide 12.5 MG Oral Tablet 01/20/2020 Provider: Marina Gibson [facility] Diagnosis: 1 PO QD Enalapril Maleate 5 MG Oral Tablet 01/20/2020 Provi kedar: Marina Gibson [facility] Diagnosis: 1 PO QD Viibryd 40 MG Oral Tablet 11/20/2019 Provider: Marina Gibson [facility] Diagnosis: 1 PO QD Ozempic (0.25 or [...] 04/07/2020 - 05/19/2020 Prov ider: Marina Gibson [facility] Diagnosis: as directed Take 2 tabs PO x 1 day, then 1 tab PO daily x 4 days. predniSONE 20 MG Oral Tablet 04/07/2020 - 05/19/2020 Provide r: Marina Gibson [facility] Diagnosis: 2 PO QD Breo Ellipta 100-25 MCG/INH Inhalation Aerosol Powder Breath Activated 03/02/2020 - 03/30/2020 Provider: Diagnosis: 1 puff daily Levaquin 500 MG Oral Tablet 03/02/2020 - 05/19/2020 Provider : Marina Gibson [facility] Diagnosis: 1 PO QD Medrol 4 MG Oral Tablet Therapy Pack 12/19/2019 - 05/19/2020 Provider: Marina Gibson [facility] Diagnosis: as directed per package instructions Breo Ellipta 100-25 MCG/INH Inhalation Aerosol Powder Breath Activated 12/05/2019 - 12/19/2019 Provider: Marina Gibson [facility] Diagnosis: 1 puff daily Levaquin 500 MG Oral Tablet 12/05/2019 - 05/19/2020 Provider : Marina Gibson [facility] Diagnosis: 1 PO QD Azithromycin 250 MG Oral Tablet 10/14/2019 - 12/05/2019 Prov ider: Marina Gibson [facility] Diagnosis: as directed Take 2 tabs [...] MD Diagnosis: 1 PO BID ReliOn Pen Ketchum 31G X 8 MM Miscellaneous (not speci [...] Recorded Vital Signs Includes: Vital Signs from 05/30/2019 through 05/30/2020 Vital Name 05/19/2020 01:50P 04/07/2020 09:06A 03/02/2020 [...] Temp-Oral (F) 97.3 Results Includes: Results from 05/30/2019 through 05/30/2020 [facility] Doctor's In-house Laboratory Ordered by Matt Huynh MD on 05/22/2020 [address] [place], [address] Collected: 05/22/2020 Reported: 05/22/2020 12:47 tel : [...] Ordered by Matt Huynh MD on 05/22/[address] [place] [address], [address] Collected: 05/22/2020 Reported: 05/22/2020 12:47 tel : [...] Matt Huynh MD on 12/05/2019 [address] [place], [address] Collected: 12/05/2019 Reported: 12/05/2019 09:33 tel :[phone] ext. 1500 Hgba1c 7.3 na (5.0-6.0) H (High) Note: Responsible Observer: KM Reviewed by Marina Gibson [facility] on 12/04; All test results are final unless otherwise noted. ACR Doctor's In-house Laboratory Ordered by Matt Huynh MD on 07/01/2019 [address] [place], [address] Collected: 07/01/2019 Reported: 07/01/2019 13:41 tel :[phone] ext. 1500 ACR 35.7 ug/mg (0-30) H (High) Note: Responsible Observer: AW Micro alb 36.5 mg/L (0-30) H (High) Note: Responsible Observer: AW Urine Creat 102.4 mg/dl (34-300) None Note: Responsible Observer: AW Reviewed by Matt Huynh MD on 07/01/2019; All test results are final unless otherwise noted. CBC Doctor's In-house Laboratory Ordered by Matt Huynh MD on 07/01/2019 [address] [place], [address] Collected: 07/01/2019 Reported: 07/01/2019 13:41 tel :[phone] ext. 1500 GRAN# 2.4 /mm3 (2.5-7.5) L [...] test results are final unless otherwise noted. [facility] Doctor's In-house Laboratory Ordered by Matt Huynh MD on 07/01/[address] [place] [address], [address] Collected: 07/01/2019 Reported: 07/01/2019 13:41 tel : [...] by Matt Huynh MD on 07/01/[address] [place] [address], [address] Collected: 07/01/2019 Reported: 07/01/2019 13:41 tel :[phone] ext. 1500 Cholesterol 172 mg/dl (135-200) None [...] Matt Huynh MD on 07/01/2019 [address] [place], [address] Collected: 07/01/2019 Reported: 07/01/2019 13:41 tel :[phone] ext. 1500 BLOOD Negative Brayan/uL (NEGATIVE) None [...] Ordered by Matt Huynh MD on 07/01/[address] [place] [address], [facility] Collected: 07/01/2019 Reported: 07/01/2019 13:41 tel : [...] Procedures and Surgical History Includes: Procedures from 05/30/2019 through 05/30/2020 Procedures Code Diagnosis Performing Provider Service Location Service Date BMP-Basic Metabolic Profile 89156 Type 2 diabe deborah mellitus without complications, Gastro-esophageal reflux disease without esophagitis Matt Huynh MD [facility], [facility] 05/22/2020 CBC 03649 Type 2 diabetes denise itus without complications, Gastro-esophageal reflux disease without esophagitis Matt Huynh MD [facility], [facility] 05/22/2020 Venipuncture (routine) 16311 Type 2 diabetes m ellitus without complications, Gastro-esophageal reflux disease without esophagitis Matt Huynh MD [facility], [facility] 05/22/2020 HgbA1C 37331 Type 2 diabetes mellitus without complications Matt Huynh MD [facility], [facility] 12/05/2019 -collection of capillary blood (fingerstick, heel ) 85318 Type 2 diabetes mellitus without complications Matt Huynh MD [facility], [facility] 12/05/2019 Brief Emotional Behavior Assessment ([facility] Julio César servdariela ce-same day) 40218 Screening for Mental Health/Behavioral Disorder, Unspecified Matt Huynh MD [facility], [facility] 07/01/2019 ADMINISTRATION 2+ IMMUNIZATION (adult) 22322 Encounter for immunization Matt Huynh MD [facility], [facility] 07/01/2019 PREVNAR 13 -pneumococcal /otits media vaccine 26106 En counter for immunization Matt Huynh MD [facility], [facility] 07/01/2019 ADMINISTRATION 1-IMMUNIZATION(adult) 37904 Encounter f or immunization Matt Huynh MD [facility], [facility] 07/01/2019 FLUZONE/ multi-dose ( 6mos -older) 71606 Encounter for immunization Matt Huynh MD [facility], [facility] 07/01/2019 Urinalysis-Lab processed 81697 Type 2 diabetes mellitus without complications, Gastro-esophageal reflux disease without esophagitis Matt Huynh MD [facility], [facility] 07/01/2019 Fasting Lipid Profile 74915 Type 2 diabetes me llitus without complications, Gastro-esophageal reflux disease without esophagitis Matt Huynh MD [facility], [facility] 07/01/2019 CMP-Complete Metabolic Profile 55264 Type 2 di abetes mellitus without complications, Gastro-esophageal reflux disease without esophagitis Matt Huynh MD [facility], [facility] 07/01/2019 CBC 56904 Type 2 diabetes denise itus without complications, Gastro-esophageal reflux disease without esophagitis Matt Huynh MD [facility], [facility] 07/01/2019 Creatinine: URINE 00783 Type 2 diabetes denise itus without complications, Gastro- esophageal reflux disease without esophagitis Matt Huynh MD [facility], [facility] 07/01/2019 Mircro Alb urine 84686 Type 2 diabetes denise itus without complications, Gastro- esophageal reflux disease without esophagitis Matt Huynh MD [facility], [facility] 07/01/2019 HgbA1C 30548 Type 2 diabetes denise itus without complications, Gastro-esophageal reflux disease without esophagitis Matt Huynh MD [facility], [facility] 07/01/2019 Venipuncture (routine) 77577 Type 2 diabetes m ellitus without complications, Gastro-esophageal reflux disease without esophagitis Matt Huynh MD [facility], [facility] 07/01/2019 Surgical History Last Updated History of [...] injectable 3 06/16/2015 Left Arm Complete (Administered) [facility] Influenza, seasonal, injectable 4 04/20/2016 Left Deltoid Complete (Administered) [facility] Note: VIS Given Influenza, seasonal, injectable 5 07/01/2019 Left Deltoid Complete (Administered) [facility] PCV (Pneumovax 23) 1 03/20/2012 Complete (Reported ) Patient PCV (Pneumovax 23) 2 02/17/2017 Complete (Reported ) Patient [id number] 1 07/01/2019 Right Deltoid Complete (Admin istered) [facility] Tdap (> 7 yrs) 1 02/17/2017 Complete (Reported) Pa octavia Allergies Includes: Active, inactive, and resolved Allergies Substance Type Reaction Onset Date - Time Resolved Date - Ti me Status Remeron Intolerance Sleeplessness 06/17/2014 - 12:00AM Active Pravachol Intolerance Nausea, Vomiting, Diarrhea 06/17/2014 - 12:00A M Active Glucophage Allergy Nausea, Vomiting, Diarrhea 01/01/2016 - 12:00AM Active CeleXA Intolerance Jittery 06/17/2014 - 12:00AM Act smiley Encounters Includes: Encounters from 05/30/2019 through 05/30/2020 Encounter Provider Location Date Check-In Time Check-Out Time D iagnosis Transitional Care Management HIGH complexity Matt gardiner MD [facility], [facility] 05/19/2020 1:24PM 2:47PM Lung Nemesio plasm Adenocarcinoma Metastatic To, Diabetes Mellitus Type 2 - Uncomplicated, Controlled By Insulin TCMNV phone call- NO CHARGE Matt Huynh MD 05/19/2020 04/07/2020 11:49AM 04/07/2020 11:59PM followup Marina Gibson [facility], [facility] 04/07 8:53AM 9:33AM Pneumonia [Patient Encounter] Marina Gibson [facility] 04/01/2020 08/2 020 4:11PM 03/02/2020 11:59PM sick visit Marina Gibson [facility] 0 03/02/2020 3:29PM 4:03PM Pneumonia [Patient Encounter] Marina Gibson [facility] 03/02/2020 020 9:39AM 12/19/2019 11:59PM sick visit Marina Griffin [facility] 0 12/19/2019 2:02PM 3:09PM Shoulder Strain Deltoid Musc le, Pneumonia incident to previous visit- [facility] 12/05/2019 8:12AM 9:16AM Pneumonia Right Middle Zone, Diabetes Mellitus Type 2 - Uncomplicated, Uncontrolled, Major Depression Chronic sick visit Marina Griffin [facility] 0 10/14/2019 1:28PM 1:58PM Acute Bronchitis [Patient Encounter] Matt Huynh MD 09/23/2019 1 09/01/2018 4:54PM 07/01/2019 11:59PM ANNUAL PE-followup exam/30 Matt Huynh MD [facility], [facility] 07/01/2019 10:12AM 11:19AM Routine History and Physical Senior Citizen (65-80 Yrs), Diabetes Mellitus Type 2 - Uncomplicated, Uncontrolled, Essential Hypertension, Obesity Morbid Due To Excess Calories, Major Depression Chronic [Patient Encounter] Matt Huynh MD 07/01/2019 0 12/24/2018 8:40AM 12/24/2018 11:59PM Insurance Includes: Active Insurance Policies Plan Name Member ID Group # Subscriber Relationship Effective Da deborah 1 - R Insurance [id number] Mohamud Morejon Advance Directives Includes: Current Advance DirectivesNo Advance Directives Recorded Health Concerns Includes: Active Health ConcernsNo Active Health Concerns Recorded Goals Includes: Active GoalsNo Active Goals Recorded Interventions Includes: Interventions for active GoalsNo Interventions Recorded Evaluations & Outcomes Includes: Evaluations & Outcomes for active GoalsNo Outcomes Recorded
--- OUTSIDE RECORDS SUMMARY | 2020-08-05 07:02 | CCD | Continuity of Care Document ---
Author Author Mercedes ZAMORA M.D. Organization Unknown Address [address] [place] [address] Phone [phone] Care Team Providers Care Finishing Technician Name Role Phone Matt Huynh M.D. [facility] [phone] Problems Description No Information Available Social History Type Date Description Comments Sex Unknown Tobacco Use Start: Unknown End: Patient is a former smoker Smoking Status Reviewed: 04/28/20 Patient is a former smoker Allergies, Adverse Reactions, Alerts Description No Known Drug Allergies Medications Active Medications SIG Qnty Indications Ordering Provide r Date Prednisone 10mg Tablets 30mg qd x 3 [...] Tablets 2 tabs by mouth everyday Unknown Hydrochlorothiazide 12.5mg Capsule s every day Unknown Enalapril Maleate 5mg Tablets 1 tab by mouth everyday Unknown Ozempic (0.25 Or 0.5 MG/Dose) 2mg/1.5ML Solution Pen-Inject Unknown History Medications Prednisone 20mg Tablets 2 [...] Available Vital Signs Date Vital Result Comment 04/28/2020 2:19pm BP Systolic 108 mmHg BP Diastolic 62 mmHg Heart Rate 91 /min O2 % BldC Oximetry 98 % Height 60 inches 5'0" Weight 186.00 lb BMI (Body Mass Index) 36.3 kg/m2 [place] Body Weight 100 lb Weight 84.370 kg 04/10/2020 9:31am BP Systolic 110 mmHg BP Diastolic 70 mmHg Heart Rate 90 /min O2 % BldC Oximetry 90 % Height 60 inches 5'0" Weight 193.00 lb BMI (Body Mass Index) 37.7 kg/m2 [place] Body Weight 100 lb Weight 87.545 kg Results Test Acquired Date Facility Test Result H/L Range Note Prothrombin Time/Inr 04/22/2020 [facility] Main Lab [address] [place] [address] [phone] Prothrombin Time 13.0 seconds Normal 12.5-14.3 Inr 0.96 Normal 1 Laboratory test finding 04/22/2020 [facility] Main Lab [address] [place] [address] [phone] Angiotensin 1 Converting Enzym 38 U/L Normal 1 4-82 2 CBC With Differential 04/22/2020 [facility] Main Lab [address] [place] [address] [phone] White Blood Count 11.7 10 High 4.0-10.0 [...] 36.0-66.0 Lymph % 11.2 % Low 24.0-44.0 [place] % 8.9 % High 0.0-5.0 Eos % 1.6 % Normal 0.0-3.0 Baso % 0.9 % Normal 0.0-1.0 Immature Granulocyte % 0.7 % Normal 0-3.0 Nucleated Red Blood Cell % 0.0 % Normal 0-0 Neutrophils # 9.0 10 High 1.5-8.5 Lymph # 1.3 10 Low 1.5-5.0 [place] # 1.0 10 High 0.0-0.8 Eos # 0.2 10 Normal 0.0-0.5 Baso # 0.1 10 Normal 0.0-0.2 Comprehensive Metabolic Profil 04/22/2020 [facility] Main Lab [address] [place] [address] [phone] Glucose, Fasting 146 mg/dL High 70-100 Blood [...] 0.9 Low 1.2-2.2 Laboratory test finding 04/22/2020 [facility] Main Lab [address] [place] [address] [phone] Bedside Glucose 168 mg/dL High 80-115 Cell Count/Diff CSF (Auto Count) 04/22/2020 [facility] Main Lab [address] [place] [address] [phone] Neutrophils, Bal 5 % Normal Lymphocytes, Bal 25 % Normal Monocytes/Macrophages, Bal 70 % Normal Cell Count Broncho Lavage 04/22/2020 [facility] Main Lab [address] [place] [address] [phone] Source LEFT UPPER LOBE Normal 4 Color PINK High Colorless Appearance CLOUDY High Clear Bal WBC 53 CELLS/uL High 0-10 Laboratory test finding 04/22/2020 [facility] Lab [address] [place] [address] [phone] Afb Smear & Culture Due to limited s <SEE NOTE> 5 Bal Culture And Gram Stain 04/22/2020 [facility] Main Lab [address] [place] [address] [phone] Gram Stain (SEE NOTE) Normal 6 Bal Culture FULL REPORT IN L <SEE NOTE> Normal 7 Laboratory test finding 04/22/2020 [facility] Lab [address] [place] [address] [phone] Non Health Care Technician/Cytology Req For Servi (SEE NOTE) 8, 9 Laboratory test finding 04/22/2020 [facility] Lab [address] [place] [address] [phone] Non Health Care Technician/Cytology Req For Servi (SEE NOTE) 10 Laboratory test finding 04/22/2020 [facility] Lab [address] [place] [address]691 [phone] Pathology Request For Service (SEE NOTE) 11 Laboratory test finding 04/22/2020 [facility] Lab [address] [place] [address] [phone] Non Health Care Technician/Cytology Req For Servi (SEE NOTE) 12 Laboratory test finding 04/22/2020 [facility] Main Lab [address] [place] [address] [phone] Non Health Care Technician/Cytology Req For Sirenai (SEE NOTE) 13 1 THERAPUTIC HUMAN INR VALUES INDICATIONS NORMAL RANGES PROPHYLAXIS/TREATMENT OF: VENOUS THROMBOSIS 2.0-3.0 PULMONARY EMBOLISM 2.0-3.0 PREVENTION OF SYSTEMIC EMBOLISM FROM: TISSUE HEART VALVES 2.0-3.0 ACUTE MYOCARDIAL INFARCTION 2.0-3.0 VALVULAR HEART DISEASE 2.0-3.0 ATRIAL FIBRILLATION 2.0-3.0 MECHANICAL VALVES(HIGH RISK) 2.5-3.5 RECURRENT MYOCARDIAL INFARCTION 2.5-3.5 2 Performed at: RN - [facility] [address] [id number] Medical Records Custodian: Lily Weaver MD, Phone: [phone] 3 Units are mL/min/1.73 m2 Chronic Kidney Disease Staging per NKF: Stage I & II GFR >=60 Normal to Mildly Decreased Stage III GFR 30-59 Moderately Decreased Stage IV GFR 15-29 Severely Decreased Stage V GFR <15 Very Little GFR Left ESRD GFR <15 on SCARFING MACHINE OPERATOR 4 BRON ALVEOLAR LAVAGE 5 Due to limited sensitivity, smear results should be used as an adjunct in evaluating patient tuberculosis status. Cultural examination is highly recommended for clinical diagnosis. AFB smear [place] NEGATIVE (NO AFB Seen ) 6 MANY RBCS FEW WBCS NO ORGANISMS SEEN 7 FULL REPORT IN LAB NOTES (eC W and Medent). NO GROWTH AEROBICALLY 8 will discuss at follow-up 9 SPECIMEN: Broncho alveolar lavage (right upper lobe) 2ml [place] SPECIMEN ADEQUACY: Satisfactory for evaluation CATEGORIZATION: Positive for Malignancy DESCRIPTIONS: Cellular specimen consiting of atypical cells exhibiting high n/c ratios and atypical nuclei with prominent macronucleoli. The background consists of bronchial cells, macrophages, scattered lyphocytes, and blood elements. COMMENTS: Please correlate with surgical case [id number]. 04/23/2020 - 1558 Signed SUKHI AWAD(ASCP) 04/23/2020 1036 (Prelim) Signed JYOTSNA SIDDIQUI MD 04/23/2020 5953 10 SPECIMEN: Broncho alveolar lavage (left upper lobe) 5ml [place] SPECIMEN ADEQUACY: Satisfactory for evaluation CATEGORIZATION: Positive for Malignancy DESCRIPTIONS: Scattered small groups of atypical cells exhibiting increased n/c ratios and muclei with prominent macronucleoli. The background consists of bronchial cells, scattered pulmonary macrophages and blood elements. COMMENTS: Please correlate with surgical case [id number]. 04/23/20201555 Signed SUKHI AWAD CT(ASCP) 04/23/2020 111 (Prelim) Signed JYOTSNA SIDDIQUI MD 04/23/2020 1556 11 FINAL DIAGNOSIS A - Lung, right upper [...] cm. in aggregate. All in one. -SV 04/22/20201525 Signed JYOTSNA SIDDIQUI MD 04/24/2020 111 12 SPECIMEN: FNA Lef t hilar lymph node Cytolyt and prepared slides received SPECIMEN ADEQUACY: Satisfactory for evaluation CATEGORIZATION: Positive for Malignancy DESCRIPTIONS: Scattered clusters small groups and single atypical cells noted exhbiting atypical nuclei with prominent single and multiple nucleoli. The background consists of bronchial cells, pulmonary macrophages, scattere lymphocytes and red blood cells. COMMENTS: Please correlate with surgical case [id number]. 04/23/20201554 Signed SUKHI AWAD CT(ASCP) 04/23/2020 1005 (Prelim) Signed JYOTSNA SIDDIQUI MD 04/23/2020 1556 13 SPECIMEN: Bronchi al brushing (right upper lobe) Prepared slides and brush in vial received SPECIMEN ADEQUACY: Satisfactory for evaluation CATEGORIZATION: Atypical cytology DESCRIPTIONS: Scant atypical cells exhbiting variation in size and nuclei with prominent nucleoli in a background of brochial cells and blood elements. Please correlate with surgical case [id number]. COMMENTS: 04/23/2020 - [address](ASCP) 04/23/2020 1149 (Prelim) Signed JYOTSNA SIDDIQUI MD 04/23/2020 1555 Procedures Date Code Description Status 04/22/2020 88518 With Endobronchial Ultrasound Gu ided Completed 04/22/2020 47956 Bronchoscopy, W/Lopez sbronchial Needle Aspiration Biopsy Addl Lobe Completed 04/22/2020 72510 Bronchoscopy W/Biopsy Completed 04/22/2020 36144 Bronchoscopy W/Bronchial Alveola r Lavage Completed 04/22/2020 31378 Bronchoscopy W/Brushing Or Prote cted Brushings Completed 04/10/2020 13985 Airway Inhalation Treatment Comp leted Medical Devices Description No Information Available Encounters Type Date Location Provider Dx Diagnosis Office Visit 04/28/2020 2:30p [facility]/Thoracic Jannet [...] lymph nodes Assessments Date Code Description Provider 04/28/2020 Z87.891 Personal history of nicotine dep [...] nodes Jannet Ovalle M.D. 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 CXR in one week at [facility]; will call with results. 2. PET/CT and brain MRI at [facility]. 3. Follow up after PET/CT and brain MRI. 4. Referral placed for Oncology. Functional Status Description No Information Available Mental Status Description No Information Available Referrals Refer to Reason for Referral Status Appt Date Radiology/Procedure [facility] auth [id number] and [id number] Created Radiology/Procedure [facility] auth [id number] and [id number] Created Leona Hernández M.D. newly diagnosed metastatic adenocarcinoma Scheduled 05/14/2020 [facility] Medical Oncology & Hematology [address] [place] [address] [phone] Radiology/[place]cedure [place] [address],2 3,24,25,26,28.29,32,33,52,53,54 and S2900 Closed
--- OUTSIDE RECORDS SUMMARY | 2020-08-05 07:02 | CCD | Continuity of Care Document ---
Author Mercedes Velarde M.D. Organization Unknown Address [address] [place] [address] Phone [phone] Care Team Providers Care Shellfish Grower Name Role Phone Matt Huynh M.D. [facility] [phone] Problems Description No Information Available Social History [...] lb BMI (Body Mass Index) 36.3 kg/m2 [place] Body Weight 100 lb Weight 84.370 kg 04/10/2020 9:31am BP Systolic 110 mmHg BP Diastolic 70 mmHg Heart Rate 90 /min O2 % BldC Oximetry 90 % Height 60 inches 5'0" Weight 193.00 lb BMI (Body Mass Index) 37.7 kg/m2 [place] Body Weight 100 lb Weight 87.545 kg Results Test Acquired Date Facility Test Result H/L Range Note Arterial Blood Gas 05/12/2020 [facility] Main Lab [address] [place], [place] [phone] ABG pH (Arterial) 7.419 units Normal 7.350-7.450 [...] Site RT BRACHIAL Normal Prothrombin Time/Inr 04/22/2020 [facility] Main Lab [address] [place], [place] [phone] Prothrombin Time 13.0 seconds Normal 12.5-14.3 Inr 0.96 Normal 1 Laboratory test finding 04/22/2020 [facility] Main Lab [address] [place] [address] [phone] Angiotensin 1 Converting Enzym 38 U/L Normal 1 4-82 2 CBC With Differential 04/22/2020 [facility] Main Lab [address] [place] [address] [phone] White Blood Count 11.7 10 High 4.0-10.0 [...] 36.0-66.0 Lymph % 11.2 % Low 24.0-44.0 [place] % 8.9 % High 0.0-5.0 Eos % 1.6 % Normal 0.0-3.0 Baso % 0.9 % Normal 0.0-1.0 Immature Granulocyte % 0.7 % Normal 0-3.0 Nucleated Red Blood Cell % 0.0 % Normal 0-0 Neutrophils # 9.0 10 High 1.5-8.5 Lymph # 1.3 10 Low 1.5-5.0 [place] # 1.0 10 High 0.0-0.8 Eos # 0.2 10 Normal 0.0-0.5 Baso # 0.1 10 Normal 0.0-0.2 Comprehensive Metabolic Profil 04/22/2020 [facility] Main Lab [address] [place] [address] [phone] Glucose, Fasting 146 mg/dL High 70-100 Blood [...] 0.9 Low 1.2-2.2 Laboratory test finding 04/22/2020 [facility] Main Lab [address] [place] [address] [phone] Bedside Glucose 168 mg/dL High 80-115 Cell Count/Diff CSF (Auto Count) 04/22/2020 [facility] Main Lab [address] [place] [address] [phone] Neutrophils, Bal 5 % Normal Lymphocytes, Bal 25 % Normal Monocytes/Macrophages, Bal 70 % Normal Cell Count Broncho Lavage 04/22/2020 [facility] Main Lab [address] [place] [address] [phone] Source LEFT UPPER LOBE Normal 4 Color PINK High Colorless Appearance CLOUDY High Clear Bal WBC 53 CELLS/uL High 0-10 Laboratory test finding 04/22/2020 [facility] Main Lab [address] [place] [address]84[address] [phone] Afb Smear & Culture Due to limited s <SEE NOTE> 5 Bal Culture And Gram Stain 04/22/2020 [facility] Main Lab [address] [place] [address] 47[address] [phone] Gram Stain (SEE NOTE) Normal 6 Bal Culture FULL REPORT IN L <SEE NOTE> Normal 7 Laboratory test finding 04/22/2020 [facility] Main Lab [address] [place] [address]32 [phone] Non Medical Records Manager/Cytology Req For Servi (SEE NOTE) 8, 9 Laboratory test finding 04/22/2020 [facility] Main Lab [address] [place] [address] [phone] Non Medical Records Manager/Cytology Req For Servi (SEE NOTE) 10 Laboratory test finding 04/22/2020 [facility] Main Lab [address] [place] [address] [phone] Pathology Request For Service (SEE NOTE) 11 Laboratory test finding 04/22/2020 [facility] Main Lab [address] [place] [address] [phone] Pathology Request For Service (SEE NOTE) 12 Laboratory test finding 04/22/2020 [facility] Lab [address] [place] [address] [phone] Non Medical Records Manager/Cytology Req For Servi (SEE NOTE) 13 Laboratory test finding 04/22/2020 [facility] Lab [address] [place] [address] [phone] Non Medical Records Manager/Cytology Req For Servi (SEE NOTE) 14 1 THERAPUTIC HUMAN INR VALUES INDICATIONS NORMAL RANGES PROPHYLAXIS/TREATMENT OF: VENOUS THROMBOSIS 2.0-3.0 PULMONARY EMBOLISM 2.0-3.0 PREVENTION OF SYSTEMIC EMBOLISM FROM: TISSUE HEART VALVES 2.0-3.0 ACUTE MYOCARDIAL INFARCTION 2.0-3.0 VALVULAR HEART DISEASE 2.0-3.0 ATRIAL FIBRILLATION 2.0-3.0 MECHANICAL VALVES(HIGH RISK) 2.5-3.5 RECURRENT MYOCARDIAL INFARCTION 2.5-3.5 2 Performed at: RN - [facility] [address] [id number] Director Of Managed Care: Lily Weaver MD, Phone: [phone] 3 Units are mL/min/1.73 m2 Chronic Kidney Disease Staging per NKF: Stage I & II GFR >=60 Normal to Mildly Decreased Stage III GFR 30-59 Moderately Decreased Stage IV GFR 15-29 Severely Decreased Stage V GFR <15 Very Little GFR Left ESRD GFR <15 on AIR HOLE DRILLER 4 BRON ALVEOLAR LAVAGE 5 Due to [...] Broncho alveolar lavage (right upper lobe) 2ml [place] SPECIMEN ADEQUACY: Satisfactory for evaluation CATEGORIZATION: Positive for Malignancy DESCRIPTIONS: Cellular specimen consiting of atypical cells exhibiting high n/c ratios and atypical nuclei with prominent macronucleoli. The background consists of bronchial cells, macrophages, scattered lyphocytes, and blood elements. COMMENTS: Please correlate with surgical case [id number]. 04/23/20201555 Signed SUKHI AWAD CT(ASCP) 04/23/2020 1036 (Prelim) Signed JYOTSNA SIDDIQUI MD 04/23/20201555 10 SPECIMEN: Broncho alveolar lavage (left upper lobe) 5ml [place] SPECIMEN ADEQUACY: Satisfactory for evaluation CATEGORIZATION: Positive for Malignancy DESCRIPTIONS: Scattered small groups of atypical cells exhibiting increased n/c ratios and muclei with prominent macronucleoli. The background consists of bronchial cells, scattered pulmonary macrophages and blood elements. COMMENTS: Please correlate with surgical case [id number]. 04/23/20201555 Signed SUKHI AWAD CT(ASCP) 04/23/2020 1116 (Prelim) Signed JYOTSNA SIDDIQUI MD 04/23/20206 11 Addendum 2 Entered: [id number] PD-L1 KEYTRUDA shows tumor proportion score of 25%/Expression. Positive for BRAF Negative for ALK Negative for ROS1 Negative for KRAS See complete reports from [facility] 4/TR 05/15/2020658 Addendum Signed____ Julisa Cerda MD 05/15/202059 Addendum 1 Entered: 05/14/2020-0553 PD-L1 KEYTRUDA shows tumor proportion score of 25%/Expression. Positive for BRAF Negative for ROS1 Negative for KRAS ALK is pending, addendum will follow. See complete reports from [facility]. 05/14/2020 - 552 Addendum Signed____ Julisa Cerda MD 05/14/2020 0553 FINAL DIAGNOSIS A - Lung, right upper [...] indicated. 04/24/20201114 CLINICAL DIAGNOSIS Abnormal chest x-ray 04/22/2020 - 1525 GROSS DIAGNOSIS A - Received in formalin [...] 04/22/2020 - 1525 Signed JYOTSNA SIDDIQUI MD 04/24/20201114 12 FINAL DIAGNOSIS A - Lung, right upper [...] -SV 04/22/20201525 Signed JYOTSNA SIDDIQUI MD 04/24/2020 1115 13 SPECIMEN: FNA Lef t hilar lymph node Cytolyt and prepared slides received SPECIMEN ADEQUACY: Satisfactory for evaluation CATEGORIZATION: Positive for Malignancy DESCRIPTIONS: Scattered clusters small groups and single atypical cells noted exhbiting atypical nuclei with prominent single and multiple nucleoli. The background consists of bronchial cells, pulmonary macrophages, scattere lymphocytes and red blood cells. COMMENTS: Please correlate with surgical case [id number]. 04/23/20201554 Signed SUKHI AWAD CT(ASCP) 04/23/2020 1005 (Prelim) Signed JYOTSNA SIDDIQUI MD 04/23/2020 1556 14 SPECIMEN: Bronchi al brushing (right upper lobe) Prepared slides and brush in vial received SPECIMEN ADEQUACY: Satisfactory for evaluation CATEGORIZATION: Atypical cytology DESCRIPTIONS: Scant atypical cells exhbiting variation in size and nuclei with prominent nucleoli in a background of brochial cells and blood elements. Please correlate with surgical case [id number]. COMMENTS: 04/23/20201554 Signed SUKHI AWAD(ASCP) 04/23/2020 1149 (Prelim) Signed JYOTSNA SIDDIQUI MD 04/23/2020 1555 Procedures Date Code Description Status 04/22/2020 96900 With Endobronchial Ultrasound Gu ided Completed 04/22/2020 68952 Bronchoscopy, W/Lopez sbronchial Needle Aspiration Biopsy Addl Lobe Completed 04/22/2020 68793 Bronchoscopy W/Biopsy Completed 04/22/2020 52141 Bronchoscopy W/Bronchial Alveola r Lavage Completed 04/22/2020 65422 Bronchoscopy W/Brushing Or Prote cted Brushings Completed 04/10/2020 83501 Airway Inhalation Treatment Comp leted Medical Devices [...] Personal history of nicotine dep endence Jannet Terrell M.D. 04/28/2020 C34.11 Malignant neoplasm of upper [...] Personal history of nicotine dep endence Jannet Terrell M.D. 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 CXR in one week at [facility]; will call with results. 2. PET/CT and brain MRI at [facility]. 3. Follow up after PET/CT and brain MRI. 4. Referral placed for Oncology. Functional Status Description No Information Available Mental Status Description No Information Available Referrals Refer to Dr Reason for Referral Status Appt Date Radiology/Procedure [facility] auth [id number] and [id number] Created Radiology/Procedure [facility] auth [id number] and [id number] Created Leona Hernández M.D. newly diagnosed metastatic adenocarcinoma Scheduled 05/14/2020 [facility] Medical Oncology & Hematology [address] [place] [address] [phone] Radiology/[place]cedure [place] [address],2 3,24,25,26,28.29,32,33,52,53,54 and S2900 Closed
--- OUTSIDE RECORDS SUMMARY | 2020-08-05 07:02 | CCD ---
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 [phone] Rony FERNANDEZ, Michael Unavailable [phone] Misty FERNANDEZ, Lizandro Unavailable Unavailable Lucia FERNANDEZ, Nicolas Griffin Unavailable Unavailable Reason for Referral No Reason for Referral Recorded Problems Includes: Active, inactive, and resolved Problems All Visits Onset Date - Time Resolved Date - Time Provider Co ndition Status Obesity Morbid Due To Excess Calories 07/01/2019 - 12:00AM Matt Huynh MD Active Note: Unchanged Vasovagal Syncope 04/26/2016 - 12:00AM Matt gardiner MD Active Note: Unchanged Tachycardia Supraventricular 12/15/2015 - 12:00AM Peggy Gibson RPA Active Note: Unchanged - Rate contr olled on Metoprolol Difficulty Swallowing (Dysphagia) 08/07/2014 - 12:00AM Marina Griffin Gibson RPA Active Note: Unchanged Esophageal Reflux 08/07/2014 - 12:00AM Matt gardiner MD Active Note: Unchanged - Mod HH and reflux on UGI Major Depression Chronic 06/17/2014 - 12:00AM Marina Georgeing RPA Active Note: Unchanged Diabetes Mellitus Type 2 06/17/2014 - 12:00AM Marina Georgeing RPA Active Note: Unchanged Psoriasis 06/17/2014 - 12:00AM Marina Georgeing RPA Active Note: Unchanged Sarcoidosis 06/17/2014 - 12:00AM Marina Gibson [facility] Active Note: Unchanged Plan of Treatment Care Programs NCQA - [facility] Future Appointments Date Time Location Provider Transitional Care Management HIGH complexity 05/19/2020 1:4 5PM [facility], [facility] Matt Huynh MD Findings Encounter Date [...] MD 05/19/2020 Discussed treatment plan with the [facility] ent. She is nontoxic and without fever, chills or sweats. Concerned that infiltrates could be of a non-infectious origin. Will refer for STEPHANIE appointment with pulmonology, she is agreeable. She will seek immediate treatment through an ER setting if her condition worsens followup with Marina Gibson [facility] 04/07/2020 Tylenol for discomfort or fever. Push fluids and rest. CXR pending. 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 See back in 1 month. Call if persistent or high fever, increased work of breathing, persistent pain, if sxs not improving, or if concerned sick visit with Marina Gibson [facility] 03/02/2020 Tylenol for discomfort or fever. Push fluids and rest. Will treat as above. No changes to medical regimen. Call if persistent or high fever, increased work of breathing, persistent pain, if sxs not improving, or if concerned. See back in 2-4 weeks to ensure resolution in symptoms incident to previous visit- with Marina Gibson [facility] 12/05/2019 Tylenol for discomfort or fever. Push fluids and rest. Call if persistent or high fever, increased work of breathing, persistent pain, if sxs not improving, or if concerned sick visit with Marina Gibson [facility] 10/14/2019 Following clinical practice guideline A DA/EASD 2012 Position Statement and the Standards of Medical Care in Diabetes-2015 ADA. Individualized more or less stringent management goals(HbA1c 6.5%-8.0%, fasting HL845-082 mg/dL and ppBG 175-225mg/dL) were reviewed with [...] Pre-op consult for surgery with Marina Gibson [facility] 04/20/2016 The Preoperative History and Physical [...] Management HIGH comple xity with Marina Gibson [facility] 12/15/2015 Patient making good improvement in [...] Care Managment MODERATE complexity with Marina Gibson [facility] 07/14/2015 Reassurance given to patient that [...] [facility] issues arise [facility] Assessments Includes: Assessments for all patient encounters Findings Encounter Date Pneumonia with a possible non-infectiou s origin. [...] previous visit - with Marina M Gibson [facility] 12/05/2019 Type 2 diabetes mellitus - uncomplicated, uncontrolled but improving incident to previous visit- with Marina M Gibson [facility] 12/05/2019 Acute bronchitis sick visit with Marina M Gibson [facility] 04/12/2019 Chronic major depression ANNUAL PE-followup exam/30 [...] major depression incident to previous visit- with [facility] 12/24/2018 Esophageal reflux incident to previous visit- with [facility] 12/24/2018 Psoriasis incident to previous visit- with [facility] 12/24/2018 Type 2 diabetes mellitus - uncomplicated, uncontrolled incident to previous visit- with [facility] 12/24/2018 Essential hypertension which [...] MD 06/28/2018 Chronic major depression followup with [facility] 0 12/26/2017 Type 2 diabetes mellitus - uncomplicated, uncontrolled followup with [facility] RPA 12/26/2017 Chronic major depression which is [...] reflux which is well-controlled followup with Heather na Gaby Gibson [facility] 02/12/2016 Type 2 diabetes mellitus which is improving followup with Toñito mar M Gibson [facility] 02/12/2016 Supraventricular tachycardia which is [...] Medications Current Medications (continue as prescribed) Basaglar JuikPen 100 UNIT/ML Subcutaneous Solution Pen-injec tor 02/11/2020 [...] flux disease without esophagitis 1 PO QD Enalapril-hydroCHLOROthiazide 5-12.5MG Oral Tablet - 06/18/2020 Provider: Marina Gibson [facility] Diagnosis: 1 PO QD Microlet Lancets Miscellaneous 01/25/2019 Provider: Marina Gibson [facility] Diagnosis: Elvie Microlet 2 Lancing device with 50 lancets Calcitrene 0.005% External Ointment 06/28/2018 Prov ider: Matt Huynh MD Diagnosis: apply bid to affected area Aspirin 81 MG OR TABS 06/17/2014 Provider: Diagnosis: Past Medications on file Azithromycin 250 MG Oral Tablet 04/07/2020 - 04/12/2020 Prov ider: Marina Gibson [facility] Diagnosis: as directed Take 2 tabs PO x 1 day, then 1 tab PO daily x 4 days. predniSONE 20 MG Oral Tablet 04/07/2020 - 04/12/2020 Provide r: Marina Gibson [facility] Diagnosis: 2 PO QD Breo Ellipta 100-25 MCG/INH Inhalation Aerosol Powder Breath Activated 03/02/2020 - 03/30/2020 Provider: Diagnosis: 1 puff daily Levaquin 500 MG Oral Tablet 03/02/2020 - 03/12/2020 Provider : Marina Gibson [facility] Diagnosis: 1 PO QD Medrol 4 MG Oral Tablet Therapy Pack 12/19/2019 - 12/29/2019 Provider: Marina Gibson [facility] Diagnosis: as directed per package instructions Breo Ellipta 100-25 MCG/INH Inhalation Aerosol Powder Breath Activated 12/05/2019 - 12/19/2019 Provider: Marina Gibson [facility] Diagnosis: 1 puff daily Levaquin 500 MG Oral Tablet 12/05/2019 - 12/15/2019 Provider : Marina Gibson [facility] Diagnosis: 1 PO QD Azithromycin 250 MG Oral Tablet 10/14/2019 - 12/05/2019 Prov ider: Marina Gibson [facility] Diagnosis: as directed Take 2 tabs PO x 1 day, then 1 tab PO daily x 4 days. hydroCHLOROthiazide 12.5 MG Oral Tablet 07/29/2019 - 020 Provider: Matt Huynh MD Diagnosis: 1 PO QD Enalapril Maleate 5 MG Oral Tablet 07/29/2019 - 12/05/2019 P rovider: Matt Huynh MD Diagnosis: 1 PO QD Victoza 18MG/3ML Subcutaneous Solution Pen-injector 03/18/20 - 07/01/2019 Provider: Marina Gibson [facility] Diagnosis: as directed - 1.2mg SQ [...] Tablet 11/29/2016 - 12/07/2017 Provider: Marina Gibson [facility] Diagnosis: 1 PO QD Victoza 18 MG/3ML [...] or as directed (50U daily max) Metoprolol Tartrate 50 MG OR TABS 01/04/2016 - 02/17/2017 Pr ovider: Matt Huynh MD Diagnosis: Gabapentin 100 MG OR CAPS 01/04/2016 - 10/12/2016 Provider: Matt Huynh MD Diagnosis: Pioglitazone HCl 15 MG Tablet 01/01/2016 - 01/01/2016 Provid er: Matt Huynh MD Diagnosis: 1 PO QD Gabapentin 100 MG Capsule 12/15/2015 - 01/04/2016 Provider: Diagnosis: Metoprolol Tartrate 50 MG Tablet 12/15/2015 - 01/04/2016 Pro vider: Diagnosis: BD Pen Needle Isabel U/F 32G X 4 MM MISC 11/06/2015 - 03/30/20 16 Provider: Matt Huynh MD Diagnosis: use with Victoza pen QD Viibryd 20 MG Tablet 10/29/2015 - 11/29/2016 Provider: Matt Huynh MD Diagnosis: 1 PO QD Victoza 18 MG/3ML Solution Pen-injector 10/29/2015 - 016 Provider: Matt Huynh MD Diagnosis: as directed 1.2mg SQ QD Nortriptyline HCl 10 MG Capsule 10/12/2015 [...] MD Diagnosis: 1 PO BID ReliOn Pen Traver 31G X 8 MM Miscellaneous (not speci [...] Recorded Vital Signs Includes: Vital Signs from 05/19/2019 through 05/19/2020 Vital Name 04/07/2020 09:06A 03/02/2020 03:45P 12/19/2019 02:30P 12/05/2019 08:15A 10/14/2019 01:41P Blood Pressure Sitting (mmHg) 100/68 82/50 98/50 Pulse Rate-Sitting (bpm) 90 110 88 88 80 Respiration Rate (breaths/min) 24 30 20 26 26 Height (in) 61 61 61 61 61 Weight (lb) 190 194 200.375 202 Body Mass Index (kg/m2) 35.9 36.7 37.9 38.2 Body Surface Area (m2) 1.85 1.86 1.89 1.90 Oxygen Saturation (%) 95 93 96 95 Temp-Oral (F) 98.7 98.2 97.3 Blood Pressure Sitting R 110/62 BP Cuff Size Regular Vital Name 07/01/2019 10:33A Blood Pressure Sitting (mmHg) 143/77 Pulse Rate-Sitting (bpm) 78 Height (in) 61 Weight (lb) 215 Body Mass Index (kg/m2) 40.6 Body Surface Area (m2) 1.95 Results Includes: Results from 05/19/2019 through 05/19/2020 Hgba1c [facility] Ordered by Matt Huynh MD on 12/05/2019 [address] [place], [address] Collected: 12/05/2019 Reported: 12/05/2019 09:33 tel :[phone] ext. 1500 Hgba1c 7.3 na (5.0-6.0) H (High) Note: Responsible Observer: KM Reviewed by Marina Gibson RPA on 12/04; All test results are final unless otherwise noted. ACR [facility] Ordered by Matt Huynh MD on 07/01/2019 [address] [place], [address] Collected: 07/01/2019 Reported: 07/01/2019 13:41 tel :[phone] ext. 1500 ACR 35.7 ug/mg (0-30) H (High) Note: Responsible Observer: AW Micro alb 36.5 mg/L (0-30) H (High) Note: Responsible Observer: AW Urine Creat 102.4 mg/dl (34-300) None Note: Responsible Observer: AW Reviewed by Matt Huynh MD on 07/01/2019; All test results are final unless otherwise noted. CBC [facility] Ordered by Matt Huynh MD on 07/01/2019 [address] [place], [address] Collected: 07/01/2019 Reported: 07/01/2019 13:41 tel : ext. 1500 GRAN# 2.4 /mm3 (2.5-7.5) L [...] Matt Huynh MD on 07/01/2019 [address] [place], [address] Collected: 07/01/2019 Reported: 07/01/2019 13:41 tel : [...] Ordered by Matt Huynh MD on 07/01/[address] [place] [address], [address] Collected: 07/01/2019 Reported: 07/01/2019 13:41 tel : [...] by Matt Huynh MD on 07/01/[address] [place] [address], [address] Collected: 07/01/2019 Reported: 07/01/2019 13:41 tel :[phone] ext. 1500 BLOOD Negative Brayan/uL (NEGATIVE) None [...] by Matt Huynh MD on 07/01/[address] [place] [address], [address] Collected: 07/01/2019 Reported: 07/01/2019 13:41 tel :[phone] ext. 1500 Hgba1c 8.0 na (5.0-6.0) H [...] Not using drugs 06/17/2014 Tobacco non-user Quit 1991; 20 pack year history 03/2014 Smoking Status Unknown Procedures and Surgical History Includes: Procedures from 05/19/2019 through 05/19/2020 Procedures Code Diagnosis Performing Provider Service Location Service Date HgbA1C 17515 Type 2 diabetes mellitus without complications Matt Huynh MD [facility], [facility] 12/05/2019 -collection of capillary blood (fingerstick, heel ) 37752 Type 2 diabetes mellitus without complications Matt Huynh MD [facility] 12/05/2019 Brief Emotional Behavior Assessment (Distinct Seperate servi ce-same day) 42977 Screening for Mental Health/Behavioral Disorder, Unspecified Matt Huynh MD [facility] 07/01/2019 ADMINISTRATION 2+ IMMUNIZATION (adult) 17020 Encounter for immunization Matt Huynh MD [facility], [facility] 07/01/2019 PREVNAR 13 -pneumococcal /otits media vaccine 94976 En counter for immunization Matt Huynh MD [facility] 07/01/2019 ADMINISTRATION 1-IMMUNIZATION(adult) 03505 Encounter f or immunization Matt Huynh MD [facility], [facility] 07/01/2019 FLUZONE/ multi-dose ( 6mos -older) 32938 Encounter for immunization Matt Huynh MD [facility] 07/01/2019 Urinalysis-Lab processed 27507 Type 2 diabetes mellitus without complications, Gastro-esophageal reflux disease without esophagitis Matt Huynh MD [facility] 07/01/2019 Fasting Lipid Profile 58251 Type 2 diabetes me llitus without complications, Gastro-esophageal reflux disease without esophagitis Matt Huynh MD [facility] 07/01/2019 CMP-Complete Metabolic Profile 71037 Type 2 di abetes mellitus without complications, Gastro-esophageal reflux disease without esophagitis Matt Huynh MD [facility] 07/01/2019 CBC 68599 Type 2 diabetes denise itus without complications, Gastro-esophageal reflux disease without esophagitis Matt Huynh MD [facility] 07/01/2019 Creatinine: URINE 43529 Type 2 diabetes denise itus without complications, Gastro- esophageal reflux disease without esophagitis Matt Huynh MD [facility] 07/01/2019 Mircro Alb urine 73944 Type 2 diabetes denise itus without complications, Gastro- esophageal reflux disease without esophagitis Matt Huynh MD [facility] 07/01/2019 HgbA1C 75443 Type 2 diabetes denise itus without complications, Gastro-esophageal reflux disease without esophagitis Matt Huynh MD [facility] 07/01/2019 Venipuncture (routine) 62166 Type 2 diabetes m ellitus without complications, Gastro-esophageal reflux disease without esophagitis Matt Huynh MD [facility] 07/01/2019 Surgical History Last Updated History [...] injectable 3 06/16/2015 Left Arm Complete (Administered) [facility] Influenza, seasonal, injectable 4 04/20/2016 [facility] Given Influenza, seasonal, injectable 5 07/01/2019 [facility] (Pneumovax 23) 1 03/20/2012 Complete (Reported ) Patient PCV (Pneumovax 23) 2 02/17/2017 Complete (Reported ) Patient [id number] 1 07/01/2019 Right Deltoid Complete (Admin istered) [facility] Tdap (> 7 yrs) 1 02/17/2017 Complete [...] 12:00AM Act smiley Encounters Includes: Encounters from 05/19/2019 through 05/19/2020 Encounter Provider Location Date Check-In Time Check-Out Time D iagnosis [facility] phone call- NO CHARGE Matt Huynh MD 05/19/2020 04/07/2020 11:49AM 04/07/2020 11:59PM followup Marina Gibson [facility] 04/07 8:53AM 9:33AM Pneumonia [Patient Encounter] Marina Gibson [facility] 04/01/2020 020 4:11PM 03/02/2020 11:59PM sick visit Marina Gibson [facility] 0 03/02/2020 3:29PM 4:03PM Pneumonia [facility]2020 020 9:39AM 12/19/2019 11:59PM sick visit Marina Gibson [facility] 0 12/19/2019 2:02PM 3:09PM Shoulder Strain Deltoid Musc le, Pneumonia incident to previous visit- Marina Gibson [facility] 12/05/2019 8:12AM 9:16AM Pneumonia Right Middle Zone, Diabetes Mellitus Type 2 - Uncomplicated, Uncontrolled, Major Depression Chronic sick visit Marina Gibson [facility] 0 10/14/2019 1:28PM 1:58PM Acute Bronchitis [Patient Encounter] Matt Huynh MD 09/23/2019 1 09/01/2018 4:54PM 07/01/2019 11:59PM ANNUAL PE-followup exam/ Matt Huynh MD [facility], [facility] 07/01/2019 10:12AM 11:19AM Routine History and Physical Senior Citizen (65-80 Yrs), Diabetes Mellitus Type 2 - Uncomplicated, Uncontrolled, Essential Hypertension, Obesity Morbid Due To Excess Calories, Major Depression Chronic [Patient Encounter] Matt Huynh MD 07/01/2019 0 12/24/2018 8:40AM 12/24/2018 11:59PM Insurance Includes: Active Insurance Policies Plan Name Member ID Group # Subscriber Relationship Effective Da deborah 1 - R Insurance [id number] Jean-Pierre, Mohamud R Advance Directives Includes: Current Advance DirectivesNo Advance Directives Recorded Health Concerns Includes: Active Health ConcernsNo Active Health Concerns Recorded Goals Includes: Active GoalsNo Active Goals Recorded Interventions Includes: Interventions for active GoalsNo Interventions Recorded Evaluations & Outcomes Includes: Evaluations & Outcomes for active GoalsNo Outcomes Recorded
--- OUTSIDE RECORDS SUMMARY | 2020-08-05 07:03 | CCD ---
Author Author [facility] Organization [facility] Address Unknown Phone Unavailable Care Team Providers Care Organic Chemist Name Role Phone Gibson, Marina PA Unavailable Unavailable Gibson, Marina PA Unavailable Unavailable Gibson, Marina PA Unavailable Unavailable Gibson, Marina PA Unavailable Unavailable Gibson, Marina PA Unavailable Unavailable Gibson, Marina PA Unavailable Unavailable Gibson, Marina PA Unavailable Unavailable Gibson, Marina PA Unavailable Unavailable Gibson, Marina PA Unavailable Unavailable Gibson, Marina PA Unavailable Unavailable Gibson, Marina PA Unavailable Unavailable Gibson, Marina PA Unavailable Unavailable Gibson, Marina PA Unavailable Unavailable Gibson, Marina PA Unavailable Unavailable Gibson, Marina PA Unavailable Unavailable Gibson, Marina PA Unavailable Unavailable Gibson, Marina PA Unavailable Unavailable Gibson, Marina PA Unavailable Unavailable Gibson, Marina PA Unavailable Unavailable Gibson, Marina PA Unavailable Unavailable Gibson, Marina PA Unavailable Unavailable Gibson, Marina PA Unavailable Unavailable Gibson, Marina PA Unavailable Unavailable Gibson, Marina PA Unavailable Unavailable Gibson, Marina PA Unavailable Unavailable Gibson, Marina PA Unavailable Unavailable Gibson, Marina PA Unavailable Unavailable Gibson, Marina PA Unavailable Unavailable Gibson, Marina PA Unavailable Unavailable Gibson, Marina PA Unavailable Unavailable Gibson, Marina PA Unavailable Unavailable Gibson, Marina PA Unavailable Unavailable Gibson, Marina PA Unavailable Unavailable Gibson, Marina PA Unavailable Unavailable Gibson, Marina PA Unavailable Unavailable Gibson, Marina PA Unavailable Unavailable Gibson, Marina PA Unavailable Unavailable Gibson, Marina PA Unavailable Unavailable Gibson, Marina PA Unavailable Unavailable Gibson, Marina PA Unavailable Unavailable Gibson, Marian PA Unavailable Unavailable Gibson, Marina PA Unavailable Unavailable Gibson, Marina PA Unavailable Unavailable Gibson, Marina PA Unavailable Unavailable Gibson, Marina PA Unavailable Unavailable Gibson, Marina PA Unavailable Unavailable Gibson, Marina PA Unavailable Unavailable Gibson, Marina PA Unavailable Unavailable Gibson, Marina PA Unavailable Unavailable Gibson, Marina PA Unavailable Unavailable Gibson, Marina PA Unavailable Unavailable Gibson, Marina PA Unavailable Unavailable Gibson, Marina PA Unavailable Unavailable Gibson, Marina PA Unavailable Unavailable Gibson, Marina PA Unavailable Unavailable Gibson, Marina PA Unavailable Unavailable Gibson, Marina PA Unavailable Unavailable Gibson, Marina PA Unavailable Unavailable Gibson, Marina PA Unavailable Unavailable Gibson, Marina PA Unavailable Unavailable Gibson, Marina PA Unavailable Unavailable Gibson, Marina PA Unavailable Unavailable Gibson, Marina PA Unavailable Unavailable Gibson, Marina PA Unavailable Unavailable Gibson, Marina PA Unavailable Unavailable Gibson, Marina PA Unavailable Unavailable Gibson, Marina PA Unavailable Unavailable Gibson, Marina PA Unavailable Unavailable Gibson, Marina PA Unavailable Unavailable Gibson, Marina PA Unavailable Unavailable Gibson, Marina PA Unavailable Unavailable Gibson, Marina PA Unavailable Unavailable Gibson, Marina PA Unavailable Unavailable Gibson, Marina PA Unavailable Unavailable Candy Huynh MD Unavailable Unavailable Candy Huynh MD Unavailable Unavailable Candy Huynh MD Unavailable Unavailable Candy Huynh MD Unavailable Unavailable Candy Huynh MD Unavailable Unavailable Candy Huynh MD Unavailable Unavailable Candy Huynh MD Unavailable Unavailable Candy Huynh MD Unavailable Unavailable Candy Huynh MD Unavailable Unavailable Candy Huynh MD Unavailable Unavailable Candy Huynh MD Unavailable Unavailable Candy Huynh MD Unavailable Unavailable Candy Huynh MD Unavailable Unavailable Candy Huynh MD Unavailable Unavailable Candy Huynh MD Unavailable Unavailable Candy Huynh MD Unavailable Unavailable Candy Huynh MD Unavailable Unavailable Candy Huynh MD Unavailable Unavailable Candy Huynh MD Unavailable Unavailable LyndaCandy santiago MD Unavailable Unavailable LyndaCandy santiago MD Unavailable Unavailable LyndaCandy santiago MD Unavailable Unavailable LyndaCandy santiago MD Unavailable Unavailable LyndaCandy santiago MD Unavailable Unavailable LyndaCandy santiago MD Unavailable Unavailable LyndaCandy santiago MD Unavailable Unavailable LyndaCandy santiago MD Unavailable Unavailable LyndaCandy santiago MD Unavailable Unavailable LyndaCandy santiago MD Unavailable Unavailable LyndaCandy santiago MD Unavailable Unavailable LyndaCandy santiago MD Unavailable Unavailable LyndaCandy santiago MD Unavailable Unavailable LyndaCandy santiago MD Unavailable Unavailable LyndaCandy santiago MD Unavailable Unavailable LyndaCandy santiago MD Unavailable Unavailable LyndaCandy santiago MD Unavailable Unavailable LyndaCandy santiago MD Unavailable Unavailable LyndaCandy santiago MD Unavailable Unavailable LynCandy gar MD Unavailable Unavailable LynCandy gar MD Unavailable Unavailable LyndaCandy santiago MD Unavailable Unavailable LyndaCandy santiago MD Unavailable Unavailable LyndaCandy santiago MD Unavailable Unavailable LyndaCandy santiago MD Unavailable Unavailable LyndaCandy santiago MD Unavailable Unavailable LynCandy gar MD Unavailable Unavailable LynCandy gar MD Unavailable Unavailable LyndaCandy santiago MD Unavailable Unavailable LynCandy gar MD Unavailable Unavailable LynCandy gar MD Unavailable Unavailable LynCandy gar MD Unavailable Unavailable LynCandy gar MD Unavailable Unavailable LynCandy gar MD Unavailable Unavailable LynCandy gar MD Unavailable Unavailable LyndaCandy santiago MD Unavailable Unavailable LynCandy gar MD Unavailable Unavailable LynCandy gar MD Unavailable Unavailable LynCandy gar MD Unavailable Unavailable LynCandy gar MD Unavailable Unavailable LynCandy gar MD Unavailable Unavailable LyndaCandy santiago MD Unavailable Unavailable LyndaCandy santiago MD Unavailable Unavailable LynCandy gar MD Unavailable Unavailable LynCandy gar MD Unavailable Unavailable LynCandy gar MD Unavailable Unavailable LyndaCandy santiago MD Unavailable Unavailable LyndaCandy santiago MD Unavailable Unavailable LyndaCandy santiago MD Unavailable Unavailable LyndaCandy santiago MD Unavailable Unavailable Candy Huynh MD Unavailable Unavailable Candy Huynh MD Unavailable Unavailable Candy Huynh MD Unavailable Unavailable Candy Huynh MD Unavailable Unavailable Candy Huynh MD Unavailable Unavailable Candy Huynh MD Unavailable Unavailable Candy Huynh MD Unavailable Unavailable Candy Huynh MD Unavailable Unavailable Candy Huynh MD Unavailable Unavailable Candy Huynh MD Unavailable Unavailable Candy Huynh MD Unavailable Unavailable Candy Huynh MD Unavailable Unavailable Candy Huynh MD Unavailable Unavailable Candy Huynh MD Unavailable Unavailable Candy Huynh MD Unavailable Unavailable Candy Huynh MD Unavailable Unavailable Candy Huynh MD Unavailable Unavailable Candy Huynh MD Unavailable Unavailable Candy Huynh MD Unavailable Unavailable Candy Huynh MD Unavailable Unavailable Candy Huynh MD Unavailable Unavailable Candy Huynh MD Unavailable Unavailable MarcCompa MD Unavailable Unavailable MarcCompa MD Unavailable Unavailable Marc, Compa Hamilton MD Unavailable Unavailable MarcCompa MD Unavailable Unavailable MarcCompa MD Unavailable Unavailable MarcCompa MD Unavailable Unavailable Marc, Compa Hamilton MD Unavailable Unavailable Marc, Compa Hamilton MD Unavailable Unavailable Marc, Compa Hamilton MD Unavailable Unavailable Marc, Compa Hamilton MD Unavailable Unavailable Marc, Compa Hamilton MD Unavailable Unavailable Marc Compa Alfonso FERNANDEZ Unavailable Unavailable MarcCompa MD Unavailable Unavailable MarcCompa MD Unavailable Unavailable MarcCompa MD Unavailable Unavailable MarcCompa MD Unavailable Unavailable MarcCompa MD Unavailable Unavailable MarcCompa MD Unavailable Unavailable MarcCompa MD Unavailable Unavailable MarcCompa MD Unavailable Unavailable Marc, Compa Alfonso Unavailable Unavailable MarcCompa MD Unavailable Unavailable MarcCompa MD Unavailable Unavailable MarcCompa MD Unavailable Unavailable Marc, Compa Hamilton MD Unavailable Unavailable Marc, Compa Hamilton MD Unavailable Unavailable Marc, Compa Hamilton MD Unavailable Unavailable Marc, Compa Hamilton MD Unavailable Unavailable Marc, Compa Hamilton MD Unavailable Unavailable Marc, Compa Hamilton MD Unavailable Unavailable Marc, Compa Alfonso MD Unavailable Unavailable Marc, Compa Hamilton MD Unavailable Unavailable MarcCompa MD Unavailable Unavailable MarcCompa MD Unavailable Unavailable MarcCompa MD Unavailable Unavailable MarcCompa MD Unavailable Unavailable MarcCompa MD Unavailable Unavailable MarcCompa MD Unavailable Unavailable Jannet Terrell MD Unavailable Unavailable Jannet Terrell MD Unavailable Unavailable Jannet Terrell MD Unavailable Unavailable Jannet Terrell MD Unavailable Unavailable Jannet Terrell MD Unavailable Unavailable Jannet Terrell MD Unavailable Unavailable Jannet Terrell MD Unavailable Unavailable Jannet Terrell MD Unavailable Unavailable Jannet Terrell MD Unavailable Unavailable Jannet Terrell MD Unavailable Unavailable Jannet Terrell MD Unavailable Unavailable Jannet Terrell MD Unavailable Unavailable Jannet Terrell MD Unavailable Unavailable Jannet Terrell MD Unavailable Unavailable Jannet Terrell MD Unavailable Unavailable Jannet Terrell MD Unavailable Unavailable Jannet Terrell MD Unavailable Unavailable Jannet Terrell MD Unavailable Unavailable Jannet Terrell MD Unavailable Unavailable Jannet Terrell MD Unavailable Unavailable Jannet Terrell MD Unavailable Unavailable Jannet Terrell MD Unavailable Unavailable Jannet Terrell MD Unavailable Unavailable Jannet Terrell MD Unavailable Unavailable Candy Huynh MD Unavailable Unavailable Candy Huynh MD Unavailable Unavailable Candy Huynh MD Unavailable Unavailable Candy Huynh MD Unavailable Unavailable Candy Huynh MD Unavailable Unavailable Candy Huynh MD Unavailable Unavailable Candy Huynh MD Unavailable Unavailable Candy Huynh MD Unavailable Unavailable Candy Huynh MD Unavailable Unavailable Candy Huynh MD Unavailable Unavailable Candy Huynh MD Unavailable Unavailable Candy Huynh MD Unavailable Unavailable Candy Huynh MD Unavailable Unavailable Candy Huynh MD Unavailable Unavailable Candy Huynh MD Unavailable Unavailable Candy Huynh MD Unavailable Unavailable Candy Huynh MD Unavailable Unavailable Candy Huynh MD Unavailable Unavailable Candy Huynh MD Unavailable Unavailable Candy Huynh MD Unavailable Unavailable Candy Huynh MD Unavailable Unavailable Candy Huynh MD Unavailable Unavailable Candy Huynh MD Unavailable Unavailable Candy Huynh MD Unavailable Unavailable Candy Huynh MD Unavailable Unavailable Candy Huynh MD Unavailable Unavailable Candy Huynh MD Unavailable Unavailable Candy Huynh MD Unavailable Unavailable Candy Huynh MD Unavailable Unavailable Candy Huynh MD Unavailable Unavailable Candy Huynh MD Unavailable Unavailable Candy Huynh MD Unavailable Unavailable LyndaCandy santiago MD Unavailable Unavailable LyndaCandy santiago MD Unavailable Unavailable LyndaCandy santiago MD Unavailable Unavailable LyndakerCandy MD Unavailable Unavailable LyndaCandy santiago MD Unavailable Unavailable LyndaCandy santiago MD Unavailable Unavailable LyndaCandy santiago MD Unavailable Unavailable LyndaCandy santiago MD Unavailable Unavailable LyndaCandy santiago MD Unavailable Unavailable LyndakerCandy MD Unavailable Unavailable LyndakerCandy MD Unavailable Unavailable LyndakerCandy MD Unavailable Unavailable LyndaCandy santiago MD Unavailable Unavailable LyndaCandy santiago MD Unavailable Unavailable LyndaCandy santiago MD Unavailable Unavailable LyndaCandy santiago MD Unavailable Unavailable LyndaCandy santiago MD Unavailable Unavailable LyndaCandy santiago MD Unavailable Unavailable LyndaCandy santiago MD Unavailable Unavailable LyndaCandy santiago MD Unavailable Unavailable LyndaCandy santiago MD Unavailable Unavailable LyndaCandy santiago MD Unavailable Unavailable LyndaCandy santiago MD Unavailable Unavailable LyndaCandy santiago MD Unavailable Unavailable LyndaCandy santiago MD Unavailable Unavailable LyndaCandy santiago MD Unavailable Unavailable LyndaCandy santiago MD Unavailable Unavailable LyndaCandy santiago MD Unavailable Unavailable LyndaCandy santiago MD Unavailable Unavailable LyndaCandy santiago MD Unavailable Unavailable LyndaCandy santiago MD Unavailable Unavailable LynCandy gar MD Unavailable Unavailable LynCandy gar MD Unavailable Unavailable LynCandy gar MD Unavailable Unavailable LynCandy gar MD Unavailable Unavailable LyndaCandy santiago MD Unavailable Unavailable LyndaCandy santiago MD Unavailable Unavailable LyndaCandy santiago MD Unavailable Unavailable LyndaCandy santiago MD Unavailable Unavailable LynCandy gar MD Unavailable Unavailable LynCandy gar MD Unavailable Unavailable LyndaCandy santiago MD Unavailable Unavailable LyndaCandy santiago MD Unavailable Unavailable LyndaCandy santiago MD Unavailable Unavailable LyndaCandy santiago MD Unavailable Unavailable LyndaCandy santiago MD Unavailable Unavailable LyndaCandy santiago MD Unavailable Unavailable LyndaCandy santiago MD Unavailable Unavailable LyndaCandy santiago MD Unavailable Unavailable LyndaCandy santiago MD Unavailable Unavailable Lyndaker, L Matt MD Unavailable Unavailable LynCandy gar MD Unavailable Unavailable LynCandy gar MD Unavailable Unavailable Lyndajack, Candy Gutierrez MD Unavailable Unavailable LyndaCandy santiago MD Unavailable Unavailable LynCandy gar MD Unavailable Unavailable Lyndajack, Candy Gutierrez MD Unavailable Unavailable Lyndajack, Candy Gutierrez MD Unavailable Unavailable LyndaCandy santiago MD Unavailable Unavailable XanderJannet MD Unavailable Unavailable Xander, Jannet FERNANDEZ Unavailable Unavailable Xander, Jannet Unavailable Unavailable Xander, Jannet MD Unavailable Unavailable Xander, Jannet MD Unavailable Unavailable Xander, Jannet MD Unavailable Unavailable Xander, Jannet MD Unavailable Unavailable Xander, Jannet MD Unavailable Unavailable Xander, Jannet MD Unavailable Unavailable Xander, Jannet MD Unavailable Unavailable Xander, Jannet MD Unavailable Unavailable Xander, Jannet MD Unavailable Unavailable Xander, Jannet MD Unavailable Unavailable Xander, Jannet MD Unavailable Unavailable Xander, Jannet MD Unavailable Unavailable Xander, Jannet Unavailable Unavailable Xander, Jannet MD Unavailable Unavailable Xander, Jannet MD Unavailable Unavailable Xander, Jannet MD Unavailable Unavailable Xander, Jannet MD Unavailable Unavailable Xander, Jannet MD Unavailable Unavailable Xander, Jannet MD Unavailable Unavailable Xander, Jannet MD Unavailable Unavailable Xander, Jannet MD Unavailable Unavailable Re-disclosure Warning The records that you are about to access may contain information from federally-assisted alcohol or drug abuse programs. If such information is present, then the following federally mandated warning applies: This information has been disclosed to you from records protected by federal confidentiality rules (42 CFR part 2). The federal rules prohibit you from making any further disclosure of this information unless further disclosure is expressly permitted by the written consent of the person to whom it pertains or as otherwise permitted by 42 CFR part 2. A general authorization for the release of medical or other information is NOT sufficient for this purpose. The Federal rules restrict any use of the information to criminally investigate or prosecute any alcohol or drug abuse patient.The records that you are about to access may contain highly sensitive health information, the redisclosure of which is protected by Article 27-F of the [facility] Public Health law. If you continue you may have access to information: Regarding HIV / AIDS; Provided by facilities licensed or operated by the [facility] Office of Mental Health; or Provided by the [facility] Office for People With Developmental Disabilities. If such information is present, then the following [facility] mandated warning applies: This information has been disclosed to you from confidential records which are protected by state law. State law prohibits you from making any further disclosure of this information without the specific written consent of the person to whom it pertains, or as otherwise permitted by law. Any unauthorized further disclosure in violation of state law may result in a fine or prison sentence or both. A general authorization for the release of medical or other information is NOT sufficient authorization for further disc losure. Allergies and Adverse Reactions Type Description Substance Reaction Status Data Source(s ) Drug intolerance trazodone hydrochloride traZODone HCl night sweats Active [facility] ([facility] [employer]) Drug intolerance Albuterol Sulfate Powder Albuterol Sulfate trem ors and anxiety. Better with Xopenex Active [facility] Family History Family Member Name Family Member Gender Family Member Status Date o f Status Description Data Source(s) Unknown Female Problem [facility] ([facility]) Encounters Encounter Providers Location Date Indications Data Source(s ) Outpatient<td ID="encounterTypeDescripti onID0">[facility] phone call- NO CHARGE</td><td>Matt Huynh MD</td><td></td><td>07/06/2020</td><td>5:40PM</td><td>11:59PM</td><td></td> Attender: Matt Huynh MD 07/06/2020 05:40:00 PM ES T - 07/06/2020 11:59:00 PM [facility] ([facility]) Outpatient<td ID="encounterTypeDescripti onID1">Transitional Care Management HIGH complexity</td><td[facility]td><td>[facility]</td><td>10:00AM</td><td>10:55AM</td><td></td> Attender: Matt Huynh MD [facility] 07/06/2020 10:00:00 AM EST - 07/06/2020 10:55:00 AM EST [facility] ([facility]) Outpatient<td ID="encounterTypeDescripti onID2">[Patient Encounter]</td><td>Matt Huynh MD</td><td></td><td>07/01/2020</td><td>06/27/2020 4:09PM</td><td>06/27/2020 11:59PM</td><td></td> Attender: Matt Huynh MD 0 04:09:00 PM EST - 06/27/2020 11:59:00 PM EST [facility] ([facility]) Outpatient<td ID="encounterTypeDescripti onID3">sick visit</td><td>Matt Huynh MD</td><td>[facility]</td><td>06/27/2020</td><td>10:42AM</td><td>11:15AM</td><td><content ID="encounterDiagnosisID3-0">Generalized Anxiety Disorder</content>, <content ID="encounterDiagnosisID3-1">Panic Disorder Without Agoraphobia</content></td> Attender: Matt Huynh MD [facility] 06/27/2020 10:42:00 AM EST - 06/27/2020 11:15:00 AM EST Panic Disorder Without AgoraphobiaGeneralized Anxiety DisorderPanic Disorder Without AgoraphobiaGeneralized Anxiety Disorder [facility] ([facility]) Panic Disorder Without Agoraphobia Generalized Anxiety Disorder Panic Disorder Without Agoraphobia Generalized Anxiety Disorder Outpatient<td ID="encounterTypeDescripti onID4">Transitional Care Management HIGH complexity</td><td>Matt Huynh MD</td><td>[facility]</td><td>06/11/2020</td><td>4:16PM</td> <td>5:12PM</td><td><content ID="encounterDiagnosisID4-0">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</content>, <content ID="encounterDiagnosisID4- 1">Tachycardia Supraventricular</content>, <content ID="encounterDiagnosisID4- 2">Major Depression Chronic</content>, <content ID="encounterDiagnosisID4- 3">Adjustment Disorder with Anxiety</content></td> Attender: Matt Huynh MD [facility] 06/11/2020 04:16:00 PM EST - 06/11/2020 05:12:00 PM EST Adjustment Disorder with AnxietyAdjustme nt Disorder with AnxietyAdjustment Disorder with Anxiety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Tachycardia SupraventricularTachycardia SupraventricularTachycardia SupraventricularMajor Depression ChronicMajor Depression ChronicMajor Depression Chronic [facility] ([facility]) Adjustment Disorder with Anxiety Adjustment Disorder with Anxiety Adjustment Disorder with Anxiety 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, ) Outpatient<td ID="encounterTypeDescripti onID5">[facility] phone call- NO CHARGE</td><td>Matt Huynh MD</td><td></td><td>06/11/2020</td><td>05/19/2020 4:00PM</td><td>05/19/2020 11:59PM</td><td></td> Attender: Matt Huynh MD 0 04:00:00 PM EST - 05/19/2020 11:59:00 PM EST [facility]) Outpatient<td ID="encounterTypeDescripti onID6">Transitional Care Management [facility] complexity</td><td>Matt Huynh MD</td><td>[facility], [facility]</td><td>05/19/2020</td><td>1:24PM</td> <td>2:47PM</td><td><content ID="encounterDiagnosisID6-0">Lung Neoplasm Adenocarcinoma Metastatic To</content>, <content ID="encounterDiagnosisID6-1"> Diabetes Mellitus Type 2 - Uncomplicated, Controlled By Insulin</content></td> Attender: Matt Huynh MD [facility], [facility] 05/19/2020 01:24:00 PM EST - 05/19/2020 02:47:00 PM EST Lung Neoplasm Adenocarcinoma Metastatic ToLung Neoplasm Adenocarcinoma Metastatic ToLung Neoplasm Adenocarcinoma Metastatic ToLung Neoplasm Adenocarcinoma Metastatic ToLung Neoplasm Adenocarcinoma Metastatic ToDiabetes Mellitus Type 2 - Uncomplicated, Controlled By InsulinDiabetes Mellitus Type 2 - Uncomplicated, Controlled By InsulinDiabetes Mellitus Type 2 - Uncomplicated, Controlled By InsulinDiabetes Mellitus Type 2 - Uncomplicated, Controlled By InsulinDiabetes Mellitus Type 2 - Uncomplicated, Controlled By Insulin [facility] ([facility]) 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 [place] C43.11 Outpatient Attender: Jannet Bradford/Yun/Twin/Garret ndcandy 04/28/2020 02:30:00 PM EDT [facility] ([facility]) Outpatient Attender: Jannet Bradford/Yun/Twin/Garret milligan 04/10/2020 09:30:00 AM EDT [facility] ([facility]) Outpatient<td ID="encounterTypeDescripti onID7">[facility] phone call- NO CHARGE</td><td>Matt Huynh MD</td><td></td><td>05/19/2020</td><td>04/07/2020 11:49AM</td><td>04/07/2020 11:59PM</td><td></td> Attender: Matt Huynh MD 0 11:49:00 AM EDT - 04/07/2020 11:59:00 PM EDT [place] ([facility]) Outpatient<td ID="encounterTypeDescripti onID8">followup</td><td>Marina Gibson RPA</td><td>[facility], [facility]</td><td>04/07/2020</td><td>8:53AM</td><td>9:33AM</td><td><content ID="encounterDiagnosisID8-0">Pneumonia</content></td> Attender: Marina KIM [facility], [facility] 04/07/2020 08:53:00 A M EDT - 04/07/2020 09:33:00 AM EDT PneumoniaPneumoniaPneumoniaPneumoniaPneumoniaPneumonia Pneumonia [place] ([facility]) Pneumonia Pneumonia Pneumonia Pneumonia Pneumonia Pneumonia Pneumonia Outpatient Attender: Marina KIM 04/02/2020 02: 00:00 PM EDT F/U RIGHT SIDED PLEURAL EFFUSION [facility] [place] F/U RIGHT SIDED PLEURAL EFFUSION Outpatient Attender: Marina KIM 03/31/2020 04:31:[address] [facility] [place] PNEUMONIA Outpatient<td ID="encounterTypeDescripti onID9">[Patient Encounter]</td><td>Marina Gibson RPA</td><td></td><td>04/01/2020</td><td>03/02/2020 4:11PM</td><td>03/02/2020 11:59PM</td><td></td> Attender: Marina KIM 03/02/2020 04:11:00 PM EDT - 03/02/2020 11:59:00 PM EDT [facility] ([facility]) Outpatient<td ID="encounterTypeDescripti onID10">sick visit</td><td>Marina Gibson RPA</td><td>[facility]</td><td>03/02/2020</td><td>3:29PM</td><td>4:03PM</td><td><content ID="[id number]">Pneumonia</content></td> Attender: Marina KIM [facility] 03/02/2020 03:29:00 P M EDT - 03/02/2020 04:03:00 PM EDT PneumoniaPneumoniaPneumoniaPneumoniaPneumoniaPneumoniaPneumoniaPneumonia [place] ([facility]) Pneumonia Pneumonia Pneumonia Pneumonia Pneumonia Pneumonia Pneumonia Pneumonia Outpatient Attender: Marina KIM 03/02/2020 01:22:[address] [facility] [place] R05 Outpatient<td ID="encounterTypeDescripti onID12">sick visit</td><td>Marina Gibson RPA</td><td>[facility]</td><td>12/19/2019</td><td>2:02PM</td><td>3:09PM</td><td><content ID="[id number]">Shoulder Strain Deltoid Muscle</content>, <content ID="[id number]">Pneumonia</content></td> Attender: Marina KIM [facility] 12/19/2019 02:02:00 P M EDT - 12/19/2019 03:09:00 PM EDT PneumoniaShoulder Strain Deltoid MuscleP neumoniaShoulder Strain Deltoid MusclePneumoniaShoulder Strain Deltoid MusclePneumoniaShoulder Strain Deltoid MusclePneumoniaShoulder Strain Deltoid MusclePneumoniaShoulder Strain Deltoid MusclePneumoniaShoulder Strain Deltoid MusclePneumoniaShoulder Strain Deltoid MusclePneumoniaShoulder Strain Deltoid Muscle [facility] ([facility]) Pneumonia Shoulder Strain Deltoid Muscle Pneumonia Shoulder Strain Deltoid Muscle Pneumonia Shoulder Strain Deltoid Muscle Pneumonia Shoulder Strain Deltoid Muscle Pneumonia Shoulder Strain Deltoid Muscle Pneumonia Shoulder Strain Deltoid Muscle Pneumonia Shoulder Strain Deltoid Muscle Pneumonia Shoulder Strain Deltoid Muscle Pneumonia Shoulder Strain Deltoid Muscle Outpatient<td ID="encounterTypeDescripti onID11">[Patient Encounter]</td><td>Marina Gibson RPA</td><td></td><td>03/02/2020</td><td>12/19/2019 9:39AM</td><td>12/19/2019 11:59PM</td><td></td> Attender: Marina KIM 12/19/2019 09:39:00 AM EDT - 12/19/2019 11:59:00 PM EDT [facility] ([facility]) Outpatient Attender: Marina KIM 12/05/2019 09:36:00 AM EDT [facility] Outpatient<td ID="encounterTypeDescripti onID13">incident to previous visit- </td><td>Marina Gibson RPA</td><td>[facility], [facility]</td><td>12/05/2019</td><td>8:12AM</td><td>9:16AM</td><td><content ID="[id number]">Pneumonia Right Middle Zone</content>, <content ID="[id number]">Diabetes Mellitus Type 2 - Uncomplicated, Uncontrolled</content>, <content ID="[id number]">Major Depression Chronic</content></td> Attender: Marina KIM [facility] 12/05/2019 08:12:00 AM EDT - 12/05/2019 09:16:00 AM ED T Pneumonia Right Middle ZonePneumonia Right Middle ZonePneumonia Right Middle ZonePneumonia Right Middle ZonePneumonia Right Middle ZonePneumonia Right Middle ZonePneumonia Right Middle ZonePneumonia Right Middle ZonePneumonia Right Middle ZonePneumonia Right Middle ZoneMajor Depression ChronicDiabetes Mellitus Type 2 - Uncomplicated, UncontrolledMajor Depression ChronicDiabetes Mellitus Type 2 - Uncomplicated, UncontrolledMajor Depression ChronicDiabetes Mellitus Type 2 - Uncomplicated, UncontrolledMajor Depression ChronicDiabetes Mellitus Type 2 - Uncomplicated, UncontrolledMajor Depression ChronicDiabetes Mellitus Type 2 - Uncomplicated, Un controlledMajor Depression ChronicDiabetes Mellitus Type 2 - Uncomplicated, UncontrolledMajor Depression ChronicDiabetes Mellitus Type 2 - Uncomplicated, UncontrolledMajor Depression ChronicDiabetes Mellitus Type 2 - Uncomplicated, Un controlledMajor Depression ChronicDiabetes Mellitus Type 2 - Uncomplicated, UncontrolledMajor Depression ChronicDiabetes Mellitus Type 2 - Uncomplicated, Uncontrolled [facility] ([facility]) Pneumonia Right Middle Zone Pneumonia Right Middle Zone Pneumonia Right Middle Zone Pneumonia Right Middle Zone Pneumonia Right Middle Zone Pneumonia Right Middle Zone Pneumonia Right Middle Zone Pneumonia Right Middle Zone Pneumonia Right Middle Zone Pneumonia Right Middle Zone Major Depression Chronic Diabetes Mellitus Type 2 - Uncomplicated , Uncontrolled Major Depression Chronic Diabetes Mellitus Type 2 - Uncomplicated , Uncontrolled Major Depression Chronic Diabetes Mellitus Type 2 - Uncomplicated , Uncontrolled Major Depression Chronic Diabetes Mellitus Type 2 - Uncomplicated , Uncontrolled Major Depression Chronic Diabetes Mellitus Type 2 - Uncomplicated , Uncontrolled Major Depression Chronic Diabetes Mellitus Type 2 - Uncomplicated , Uncontrolled Major Depression Chronic Diabetes Mellitus Type 2 - Uncomplicated , Uncontrolled Major Depression Chronic Diabetes Mellitus Type 2 - Uncomplicated , Uncontrolled Major Depression Chronic Diabetes Mellitus Type 2 - Uncomplicated , Uncontrolled Major Depression Chronic Diabetes Mellitus Type 2 - Uncomplicated , Uncontrolled Outpatient<td ID="encounterTypeDescripti onID14">sick visit</td><td>Marina Gibson [facility]</td><td>[facility], [facility]</td><td>10/14/2019</td><td>1:28PM</td><td>1:58PM</td><td><content ID="[id number]">Acute Bronchitis</content></td> Attender: Marina KIM [facility] 10/14/2019 01:28:00 P M EDT - 10/14/2019 01:58:00 PM EDT Acute BronchitisAcute BronchitisAcute Br onchitisAcute BronchitisAcute BronchitisAcute BronchitisAcute BronchitisAcute BronchitisAcute BronchitisAcute BronchitisAcute Bronchitis [facility] ([facility]) Acute Bronchitis Acute Bronchitis Acute Bronchitis Acute Bronchitis Acute Bronchitis Acute Bronchitis Acute Bronchitis Acute Bronchitis Acute Bronchitis Acute Bronchitis Acute Bronchitis Outpatient<td ID="encounterTypeDescripti onID15">[Patient Encounter]</td><td>Matt Huynh MD</td><td></td><td>09/23/2019</td><td>07/01/2019 4:54PM</td><td>07/01/2019 11:59PM</td><td></td> Attender: Matt Huynh MD 0 04:54:00 PM EDT - 07/01/2019 11:59:00 PM EST [facility] ([facility]) Outpatient Attender: Matt Huynh MD 07/11/2019 04:51:0 0 [address] [facility] [place] SCREENING Outpatient<td ID="encounterTypeDescripti onID13">ANNUAL PE-followup exam/30</td><td>Matt Huynh MD</td><td>[facility], [facility]</td><td>07/01/2019</td><td>10:12AM</td><td>11:19AM</td><td><content ID="[email or web address]">Routine History and Physical Senior Citizen (65-80 Yrs)</content>, <content ID="[id number]">Diabetes Mellitus Type 2 - Uncomplicated, Uncontrolled</content>, <content ID="[id number] 2">Essential Hypertension</content>, <content ID="[id number]"> Obesity Morbid Due To Excess Calories</content>, <content ID="[id number]">Major Depression Chronic</content></td> Attender: Matt Huynh MD [facility] 07/01/2019 10:12:00 A M EST - 07/01/2019 11:19:00 AM EST Obesity Morbid Due To Excess CaloriesEss ential HypertensionDiabetes Mellitus Type 2 - Uncomplicated, UncontrolledRoutine History and Physical Senior Citizen (65-80 Yrs)Obesity Morbid Due To Excess Ca loriesEssential HypertensionDiabetes Mellitus Type 2 - Uncomplicated, UncontrolledRoutine History and Physical Senior Citizen (65-80 Yrs)Obesity Morbid Due To Excess CaloriesEssential HypertensionDiabetes Mellitus Type 2 - Uncomplicated, UncontrolledRoutine History and Physical Senior Citizen (65-80 Yrs)Obesity Morbid Due To Excess CaloriesEssential HypertensionDiabetes Mellitus Type 2 - Uncomplicated, UncontrolledRoutine History and Physical Senior Citizen (65-80 Yrs)Obesity Morbid Due To Excess CaloriesEssential HypertensionDiabetes Mellitus Type 2 - Uncomplicated, UncontrolledRoutine History and Physical Senior Citizen (65-80 Yrs)Obesity Morbid Due To Excess CaloriesEssential Hypertension Diabetes Mellitus Type 2 - Uncomplicated, UncontrolledRoutine History and Physical Senior Citizen (65-80 Yrs)Obesity Morbid Due To Excess CaloriesEssential HypertensionDiabetes Mellitus Type 2 - Uncomplicated, UncontrolledRoutine History and Physical Senior Citizen (65-80 Yrs)Obesity Morbid Due To Excess CaloriesEssential HypertensionDiabetes Mellitus Type 2 - Uncomplicated, UncontrolledRoutine History and Physical Senior Citizen (65-80 Yrs)Obesity Morbid Due To Excess CaloriesEssential HypertensionDiabetes Mellitus Type 2 - Uncomplicated, UncontrolledRoutine History and Physical Senior Citizen (65-80 Yrs)Obesity Morbid Due To Excess CaloriesEssential HypertensionDiabetes Mellitus Type 2 - Uncomplicated, UncontrolledRoutine History and Physical Senior Citizen (65-80 Yrs)Obesity Morbid Due To Excess CaloriesEssential HypertensionDiabetes Mellitus Type 2 - Uncomplicated, UncontrolledRoutine History and Physical Senior Citizen (65-80 Yrs)Major Depression ChronicMajor Depression ChronicMajor Depression ChronicMajor Depression ChronicMajor Depression ChronicMajor Depression ChronicMajor Depression ChronicMajor Depression ChronicMajor Depression ChronicMajor Depression ChronicMajor Depression [facility] ([facility]) Obesity Morbid Due To Excess Calories Essential Hypertension Diabetes Mellitus Type 2 - Uncomplicated , Uncontrolled Routine History and Physical Senior [employer] mar[place] (65-80 Yrs) Obesity Morbid Due To Excess Calories Essential Hypertension Diabetes Mellitus Type 2 - Uncomplicated , Uncontrolled Routine History and Physical Senior Citi marino (65-80 Yrs) Obesity Morbid Due To Excess Calories Essential Hypertension Diabetes Mellitus Type 2 - Uncomplicated , Uncontrolled Routine History and Physical Senior [place]iti marino (65-80 Yrs) Obesity Morbid Due To Excess Calories Essential Hypertension Diabetes Mellitus Type 2 - Uncomplicated , Uncontrolled Routine History and Physical Senior Citi marino (65-80 Yrs) Obesity Morbid Due To Excess Calories Essential Hypertension Diabetes Mellitus Type 2 - Uncomplicated , Uncontrolled Routine History and Physical Senior [place]iti mar[place] (65-80 Yrs) Obesity Morbid Due To Excess Calories Essential Hypertension Diabetes Mellitus Type 2 - Uncomplicated , Uncontrolled Routine History and Physical Senior [place]iti marino (65-80 Yrs) Obesity Morbid Due To Excess Calories Essential Hypertension Diabetes Mellitus Type 2 - Uncomplicated , Uncontrolled Routine History and Physical Senior [place]iti marino (65-80 Yrs) Obesity Morbid Due To Excess Calories Essential Hypertension Diabetes Mellitus Type 2 - Uncomplicated , Uncontrolled Routine History and Physical Senior [place]iti mar[place] (65-80 Yrs) Obesity Morbid Due To Excess Calories Essential Hypertension Diabetes Mellitus Type 2 - Uncomplicated , Uncontrolled Routine History and Physical Senior [place] mar[place] (65-80 Yrs) Obesity Morbid Due To Excess Calories Essential Hypertension Diabetes Mellitus Type 2 - Uncomplicated , Uncontrolled Routine History and Physical Senior [facility] marino (65-80 Yrs) Obesity Morbid Due To Excess Calories Essential Hypertension Diabetes Mellitus Type 2 - Uncomplicated , Uncontrolled Routine History and Physical Senior [facility] marino (65-80 Yrs) Major Depression Chronic Major Depression Chronic Major Depression Chronic Major Depression Chronic Major Depression Chronic Major Depression Chronic Major Depression Chronic Major Depression Chronic Major Depression Chronic Major Depression Chronic Major Depression Chronic Outpatient<td ID="encounterTypeDescripti onID14">[Patient Encounter]</td><td>Matt Huynh MD</td><td></td><td>07/01/2019</td><td>12/24/2018 8:40AM</td><td>12/24/2018 11:59PM</td><td></td> Attender: Matt Huynh MD 9 08:40:00 AM EST - 12/24/2018 11:59:00 PM EDT [facility] ([facility]) Immunizations Vaccine Date Status Description Data Source(s) Pneumococcal conjugate PCV 13 07/01/2019 11:25:00 AM EST completed P [id number] 1 07/01/2019 Right Deltoid Complete (Administered) [facility] ([facility]) IIV3. This is one of two codes replacing CVX 15, which is being retired. 07/01/2019 11:25:00 AM EST completed Influenza, seasonal, injectable 5 07/01/2019 Left Deltoid Complete (Administered) [facility] Medications Medication Brand Name Start Date Product Form Dose Route Admi nistrative Instructions Pharmacy Instructions Status Indications Reaction Description Data Source(s) Clobetasol Propionate 0.0005 MG/MG Topic al Ointment Clobetasol Propionate 0.05% External Ointment Clobetasol Propionate 0.05% External Ointment 07/01/20 12:00:00 AM EST 1 active clobetasol propionate 0.0005 MG/MG Topical Ointment [facility] ([facility]) calcipotriene 0.69485 MG/MG Topical Oint ment [Calcitrene] Calcitrene 0.005% External Ointment Calcitrene 0.005% External Ointment 07/01/2020 12:00:0 0 AM EST 1 active calcipotriene 0.0 0005 MG/MG Topical Ointment [Calcitrene] [facility] ([facility]) doxycycline hyclate 100 MG Oral Tablet Doxycycline Hyc late 100 MG Oral Tablet Doxycycline Hyclate 100 MG Oral Tablet 07/01/2020 12:00:00 AM EST 2 active doxycycline hyclate 100 MG Oral Tablet [facility] ([facility]) cefdinir 300 MG Oral Capsule Cefdinir 300 MG Oral Caps ule Cefdinir 300 MG Oral Capsule 07/01/2020 12:00:00 AM EST 1 active cefdinir 300 MG Oral Capsule [facility]) Prednisone 10 MG Oral Tablet predniSONE 10 MG Oral Tab let predniSONE 10 MG Oral Tablet 07/01/2020 12:00:00 AM EST active prednisone 10 MG Oral Tablet [facility]) Lorazepam 0.5 MG Oral Tablet LORazepam 0.5 MG Oral Tab let LORazepam 0.5 MG Oral Tablet 06/27/2020 12:00:00 AM EST active lorazepam 0.5 MG Oral Tablet [facility] ([facility]) Trazodone Hydrochloride 50 MG Oral Tablet traZODone HC l 50 MG Oral Tablet traZODone HCl 50 MG Oral Tablet 06/27/2020 12:00:00 AM EST 1 aborted trazodone hydrochloride 50 MG Oral Tablet [facility] ([facility]) Levalbuterol 0.21 MG/ML Inhalant Solutio n Levalbuterol HCl 0.63 MG/3ML Inhalation Nebulization solution Levalbuterol HCl 0.63 MG/3ML Inhalation Nebulization solution 06/20/2020 12:00:00 AM EST 1 active levalbuterol 0.21 MG/ML Inhalation Solution [facility] ([facility]) Accu-Chek FastClix Lancets Miscellaneous Accu-Chek Fas tClix Lancets Miscellaneous 06/19/2020 12:00:00 AM EST acti ve Accu-Chek FastClix Lancets [facility] ([facility]) OneTouch Verio In Vitro Strip OneTouch Verio In Vitro Strip 06/19/2020 12:00:00 AM EST aborted OneTouch Verio [facility] ([facility]) OneTouch Delica Lancets 33G Miscellaneous OneTouch Del ica Lancets [facility] 06/19/2020 12:00:00 AM EST abor evangelina OneTouch Delica Lancets 33G [facility] ([facility]) Accu-Chek Guide In Vitro Strip Accu-Chek Guide In Vitro Stri p 06/19/2020 12:00:00 AM EST active Accu-Shannan k Guide [facility] ([facility]) OneTouch Verio Flex System w/Device Kit OneTouch Verio Flex System w/Device Kit 06/19/2020 12:00:00 AM EST aborted OneTouch Verio Flex System [facility] ([facility]) Accu-Chek Guide w/Device Kit Accu-Chek Guide w/Device Kit 12:00:00 AM EST active Accu-Chek Guide [facility] ([facility]) Lorazepam 0.5 MG Oral Tablet LORazepam 0.5 MG Oral Tab let LORazepam 0.5 MG Oral Tablet 06/11/2020 12:00:00 AM EST aborted lorazepam 0.5 MG Oral Tablet [facility] ([facility]) 200 ACTUAT Albuterol 0.09 MG/ACTUAT Metered Dose Inhal er [Ventolin] Ventolin HFA 05/28/2020 12:00:00 AM EST RESPIRATORY active [facility] ([facility] ) Levalbuterol 0.21 MG/ML Inhalant Solution Levalbuterol HCL active [facility] ([facility]) Prednisone 10 MG Oral Tablet Prednisone 04/28/2020 12:00:00 AM EDT active [facility] ([facility], ) Prednisone 20 MG Oral Tablet Prednisone 04/23/2020 12:00:00 AM EDT ORAL completed [facility] ([facility], ) Prednisone 10 MG Oral Tablet Prednisone 04/13/2020 12:00:00 AM EDT ORAL completed [facility] ([facility], ) Levalbuterol 0.21 MG/ML Inhalant Solution Levalbuterol HCL 04/10/2020 12:00:00 AM EDT active [facility] ([facility], ) Prednisone 20 MG Oral Tablet predniSONE 20 MG Oral Tab let predniSONE 20 MG Oral Tablet 04/07/2020 12:00:00 AM EDT 2 aborted prednisone 20 MG Oral Tablet [facility]) Azithromycin 250 MG Oral Tablet Azithromycin 250 MG Oral Tab let 04/07/2020 12:00:00 AM EDT aborted azithro mycin 250 MG Oral Tablet [facility] ([facility]) 30 ACTUAT fluticasone furoate 0.1 MG/ACT UAT / vilanterol 0.025 MG/ACTUAT Dry Powder Inhaler [Breo] Breo Ellipta 100-25 MCG/INH Inhalation Aerosol Powder Breath Activated Breo Ellipta 100-25 MCG/INH Inhalation A erosol Powder Breath Activated 03/02/2020 12:00:00 AM EDT 1 complete d 30 ACTUAT fluticasone furoate 0.1 MG/ACTUAT / vilanterol 0.025 MG/ACTUAT Dry Powder Inhaler [Breo] [facility] ([facility]) Levofloxacin 500 MG Oral Tablet [Levaquin] Levaquin 50 0 MG Oral Tablet Levaquin 500 MG Oral Tablet 03/02/2020 12:00:00 AM EDT 1 aborted levofloxacin 500 MG Oral Tablet [Levaquin] [facility]) Basaglar KwikPen 100 UNIT/ML Subcutaneous Solution Pen -injector Basaglar KwikPen 100 UNIT/ML Subcutaneous Solution Pen-injector 02/11/2020 12:00:00 AM EDT active Sensor 3 ML insulin glargine 100 UNT/ML Pen Injector [Basaglar] [facility]) 24 HR metoprolol succinate 50 MG Extende d Release Oral Tablet Metoprolol Succinate ER 50 MG Oral Tablet Extended Release 24 Hour Metoprolol Succinate ER 50 MG Oral Tablet Extended Release 24 Hour 02/05/2020 12:00:00 AM EDT 1 active 24 HR metoprolol succinate 50 MG Extended Release Oral Tablet [facility] ([facility]) empagliflozin 10 MG Oral Tablet [Jardiance] Jardiance 10 MG Oral Tablet Jardiance 10 MG Oral Tablet 02/05/2020 12:00:00 AM EDT 1 active empagliflozin 10 MG Oral Tablet [Jardiance] [facility] ([facility]) BD Pen Needle Isabel U/F 32G X 4 MM Miscellaneous BD Pen Needle Isabel U/F 32G X 4 MM Miscellaneous 01/24/2020 12:00:00 AM EDT a ctive BD Pen Needle Isabel U/F [facility] ([facility]) Enalapril Maleate 5 MG Oral Tablet Enalapril Maleate 5 MG Or al Tablet 01/20/2020 12:00:00 AM EDT 1 aborted enalap ril maleate 5 MG Oral Tablet [facility] ([facility]) Hydrochlorothiazide 12.5 MG Oral Tablet hydroCHLOROthi azide 12.5 MG Oral Tablet hydroCHLOROthiazide 12.5 MG Oral Tablet 01/20/2020 12:00:00 AM EDT 1 aborted hydrochlorothiazide 12.5 MG Oral Tablet [facility] ([facility]) Medrol 4 MG Oral Tablet Therapy Pack Medrol 4 MG Oral Tablet Therapy Pack 12/19/2019 12:00:00 AM EDT aborted {21 (methylprednisolone 4 MG Oral Tablet [Medrol]) } Pack [Medrol Dosepak] [facility] ([facility]) 30 ACTUAT fluticasone furoate 0.1 MG/ACT UAT / vilanterol 0.025 MG/ACTUAT Dry Powder Inhaler [Breo] Breo Ellipta 100-25 MCG/INH Inhalation Aerosol Powder Breath Activated Breo Ellipta 100-25 MCG/INH Inhalation A erosol Powder Breath Activated 12/05/2019 12:00:00 AM EDT 1 complete d 30 ACTUAT fluticasone furoate 0.1 MG/ACTUAT / vilanterol 0.025 MG/ACTUAT Dry Powder Inhaler [Breo] [facility] ([facility]) Levofloxacin 500 MG Oral Tablet [Levaquin] Levaquin 50 0 MG Oral Tablet Levaquin 500 MG Oral Tablet 12/05/2019 12:00:00 AM EDT 1 aborted levofloxacin 500 MG Oral Tablet [Levaquin] [facility]) vilazodone hydrochloride 40 MG Oral Tablet [Viibryd] V iibryd 40 MG Oral Tablet Viibryd 40 MG Oral Tablet 11/20/2019 12:00:00 AM EDT 1 active vilazodone hydrochloride 40 MG Oral Tablet [Viibryd] [facility]) Azithromycin 250 MG Oral Tablet Azithromycin 250 MG Oral Tab let 10/14/2019 12:00:00 AM EDT aborted azithro mycin 250 MG Oral Tablet [facility] ([facility]) Ozempic (0.25 or 0.5 MG/DOSE) 2 MG/1.5ML Subcutaneous Solution Pen-injector Ozempic (0.25 or 0.5 MG/DOSE) 2 MG/1.5ML Subcutaneous Solution Pen-injector 09/26/2019 12:00:00 AM EDT active 0.25 MG, 0.5 MG Dose 1.5 ML semaglutide 1.34 MG/ML Pen Injector [Ozempic] [facility] ([facility]) Lovastatin 20 MG Oral Tablet Lovastatin 20 MG Oral Tablet 12:00:00 AM EDT 1 active lovastatin 20 MG Oral Tablet [facility] ([facility]) 3 ML liraglutide 6 MG/ML Pen Injector [V ictoza] Victoza 18 MG/3ML Subcutaneous Solution Pen-injector Victoza 18 MG/3ML Subcutaneous Solution Pen-injector 08/14/2019 12:00:00 AM EST aborted 3 ML liraglutide 6 MG/ML Pen Injector [Victoza] [facility] ([facility]) Hydrochlorothiazide 12.5 MG Oral Tablet hydroCHLOROthi azide 12.5 MG Oral Tablet hydroCHLOROthiazide 12.5 MG Oral Tablet 07/29/2019 12:00:00 AM EST 1 aborted hydrochlorothiazide 12.5 MG Oral Tablet [facility]) Enalapril Maleate 5 MG Oral Tablet Enalapril Maleate 5 MG Or al Tablet 07/29/2019 12:00:00 AM EST 1 aborted enalap ril maleate 5 MG Oral Tablet [facility] ([facility]) pantoprazole 40 MG Delayed Release Oral Tablet Pantoprazole Sodium 40MG Oral Tablet Delayed Release Pantoprazole Sodium 40MG Oral Tablet Delayed Release 07/01/2019 12:00:00 AM EST 1 active pantoprazole 40 MG Delayed Release Oral Tablet [facility] ([facility]) Enalapril Maleate 5 MG / Hydrochlorothia zide 12.5 MG Oral Tablet Enalapril- hydroCHLOROthiazide 5-12.5MG Oral Tablet Enalapril-hydroCHLOROthiazide 5-12.5MG Oral Tablet 06/24/2019 12:00:00 AM EST 1 aborte d enalapril maleate 5 MG / hydrochlorothiazide 12.5 MG Oral Tablet [facility] ([facility]) 3 ML liraglutide 6 MG/ML Pen Injector [V ictoza] Victoza 18MG/3ML Subcutaneous Solution Pen-injector Victoza 18MG/3ML Subcutaneous Solution Pen-injector 03/18/2019 12:00:00 AM EDT aborted 3 ML liraglutide 6 MG/ML Pen Injector [Victoza] [facility] ([facility]) empagliflozin 10 MG Oral Tablet [Jardiance] Jardiance 10MG Oral Tablet Jardiance 10MG Oral Tablet 02/05/2019 12:00:00 AM EDT 1 aborted empagliflozin 10 MG Oral Tablet [Jardiance] [facility] ([facility]) 24 HR metoprolol succinate 50 MG Extende d Release Oral Tablet Metoprolol Succinate ER 50MG Oral Tablet Extended Release 24 Hour Metoprolol Succinate ER 50MG Oral Tablet Extended Release 24 Hour 02/05/2019 12:00:00 AM EDT 1 aborted 24 HR metoprolol succinate 50 MG Extended Release Oral Tablet [facility] ([facility]) Basaglar KwikPen 100UNIT/ML Subcutaneous Solution Pen- injector Basaglar KwikPen 100UNIT/ML Subcutaneous Solution Pen-injector 01/24/2019 12:00:00 AM EDT aborted Sensor 3 ML insulin glarg ine 100 UNT/ML Pen Injector [Basaglar] [facility] ([facility]) vilazodone hydrochloride 40 MG Oral Tablet [Viibryd] V iibryd 40MG Oral Tablet Viibryd 40MG Oral Tablet 12/04/2018 12:00:00 AM EDT 1 aborted vilazodone hydrochloride 40 MG Oral Tablet [Viibryd] [place] ([facility]) Lovastatin 20 MG Oral Tablet Lovastatin 20MG Oral Tabl et Lovastatin 20MG Oral Tablet 09/24/2018 12:00:00 AM EDT 1 aborted lovastatin 20 MG Oral Tablet [place] ([facility]) pantoprazole 40 MG Delayed Release Oral Tablet Pantoprazole Sodium 40MG Oral Tablet Delayed Release Pantoprazole Sodium 40MG Oral Tablet Delayed Release 07/20/2018 12:00:00 AM EST 1 aborted pantoprazole 40 MG Delayed Release Oral Tablet [place] ([facility]) calcipotriene 0.13307 MG/MG Topical Oint ment [Calcitrene] Calcitrene 0.005% External Ointment Calcitrene 0.005% External Ointment 06/28/2018 12:00:0 0 AM EST 1 aborted calcipot riene 0.28223 MG/MG Topical Ointment [Calcitrene] [place] ([facility]) Clobetasol Propionate 0.0005 MG/MG Topic al Ointment Clobetasol Propionate 0.05% EX OINT Clobetasol Propionate 0.05% EX OINT 04/02/2018 12:00:00 AM EDT 1 aborted clobetasol propionate 0.0005 MG/MG Topical Ointment [place] ([facility]) 24 HR Bupropion Hydrochloride 150 MG Ext ended Release Oral Tablet buPROPion HCl ER (XL) 150 MG OR TB24 buPROPion HCl ER (XL) 150 MG OR TB24 02/28/2018 12:00: 00 AM EDT aborted 24 HR bu propion hydrochloride 150 MG Extended Release Oral Tablet [place] ([facility]) BD Pen Needle Isabel U/F 32G X 4 MM MISC BD Pen Needle Isabel U/ F 32G X 4 MM MISC 03/30/2016 12:00:00 AM EDT aborted BD Pen Needle Isabel U/F [place] ([facility]) Insurance Providers Payer name Policy type / Coverage type Policy ID Covered green party ID Covered green party's relationship to hernandez Policy Hernandez Plan Information MEDICARE [id number] [facility] [id number] [facility] [id number] [facility] [id number] S [id number] MEDICARE [id number] SP [id number] [facility] [id number] SELF PAY ONLY [id number] SP [id number] [employer] [place] Other 0 Self 0 [employer] [place] Other 0 Self 0 [place] Other 0 Self 0 [employer] [place] Other 0 Self 0 [employer] [place] Other 0 Self 0 [employer] [place] Other 0 Self 0 [employer] Dependent BLUE CROSS OUT OF STATE [id number] Spouse [id number] HMO BLUE [id number] Patient [id number] [employer] Dependent BC/BS PPO/EPO (28) [id number] Problems, Conditions, and Diagnoses Code Display Name Description Problem Type Effective Dates Data Source(s) 300.01 Anxiety Disorder Due To Gen Medical Cond ition, Panic Attacks Anxiety Disorder Due To Gen Medical Condition, Panic Attacks Problem 1 08/28/2019 12:00:00 [facility] [id number] Anxiety Disord Due To Gen Medical Cond, Generalized Anxiety Anxiety Disord Due To Gen Medical Cond, Generalized Anxiety Problem 12:00:00 AM [employer] ([facility]) 300.01 Anxiety Disorder Due To Gen Medical Cond ition, Panic Attacks Anxiety Disorder Due To Gen Medical Condition, Panic Attacks Problem 1 08/28/2019 12:00:00 [facility] [id number] Anxiety Disord Due To Gen Medical Cond, Generalized Anxiety Anxiety Disord Due To Gen Medical Cond, Generalized Anxiety Problem 12:00:00 AM [employer] ([facility]) [id number] Non-small cell lung cancer (disorder) Susana ng Neoplasm Malignant (Non- small Cell) Stage IV Problem 05/30/2020 12:00:00 AM [employer] ([facility]) [id number] Non-small cell lung cancer (disorder) Susana ng Neoplasm Malignant (Non- small Cell) Stage IV Problem 05/30/2020 12:00:00 AM EST [facility] ([facility] [employer] [facility]) [id number] Non-small cell lung cancer (disorder) Susana ng Neoplasm Malignant (Non- small Cell) Stage IV Problem 05/30/2020 12:00:00 AM EST [facility] ([facility]) [id number] Non-small cell lung cancer (disorder) Susana ng Neoplasm Malignant (Non- small Cell) Stage IV Problem 05/30/2020 12:00:00 AM EST [facility] ([facility] [employer] [facility]) [id number] Non-small cell lung cancer (disorder) Susana ng Neoplasm Malignant (Non- small Cell) Stage IV Problem 05/30/2020 12:00:00 AM [employer] ([facility]) [id number] Obesity Morbid Due To Excess Calories Ob esity Morbid Due To Excess Calories Problem 07/01/2019 12:00:00 AM [employer] ([facility]) [id number] Obesity Morbid Due To Excess Calories Ob esity Morbid Due To Excess Calories Problem 07/01/2019 12:00:[facility] [id number] Obesity Morbid Due To Excess Calories Ob esity Morbid Due To Excess Calories Problem 07/01/2019 12:00:00 AM [employer] ([facility] [employer] [facility]) [id number] Obesity Morbid Due To Excess Calories Ob esity Morbid Due To Excess Calories Problem 07/01/2019 12:00:00 AM [employer] ([facility]) [id number] Obesity Morbid Due To Excess Calories Ob esity Morbid Due To Excess Calories Problem 07/01/2019 12:00:00 [facility] [employer] [facility] [employer] [id number] Obesity Morbid Due To Excess Calories Ob esity Morbid Due To Excess Calories Problem 07/01/2019 12:00:00 AM [employer] ([facility]) 046976605 Obesity Morbid Due To Excess Calories Ob esity Morbid Due To Excess Calories Problem 07/01/2019 12:00:00 [facility] [employer] [facility] [id number] Obesity Morbid Due To Excess Calories Ob esity Morbid Due To Excess Calories Problem 07/01/2019 12:00:00 AM [facility] [employer] [facility]) 278.01 Obesity Morbid Due To Excess Calories Ob esity Morbid Due To Excess Calories Problem 07/01/2019 12:00:00 AM [employer] ([facility]) 278.01 Obesity Morbid Due To Excess Calories Ob esity Morbid Due To Excess Calories Problem 07/01/2019 12:00:00 AM [facility] ([facility]) 278.01 Obesity Morbid Due To Excess Calories Ob esity Morbid Due To Excess Calories Problem 07/01/2019 12:00:00 AM [facility] ([facility]) 278.01 Obesity Morbid Due To Excess Calories Ob esity Morbid Due To Excess Calories Problem 07/01/2019 12:00:00 AM [facility] ([facility]) Surgeries/Procedures Procedure Description Date Indications Data Source(s) no charge procedure no charge procedure 06/11/2020 12:00:00 AM [facility] ([facility]) no charge procedure no charge procedure 06/11/2020 12:00:00 AM [facility] ([facility]) Medication Reconciliation Incentive Medication Reconciliatio n Incentive 06/11/2020 12:00:00 AM [facility] ([facility]) Venipuncture (routine) Venipuncture (routine) 05/22/2020 12:00:00 A M [facility] ([facility]) CBC CBC 05/22/2020 12:00:00 AM [facility] ([facility]) BMP-Basic Metabolic Profile BMP-Basic Metabolic Profile 05/10 12:00:00 AM [facility] ([facility] no charge procedure no charge procedure 05/19/2020 12:00:00 AM [facility] ([facility]) Medication Reconciliation Incentive Medication Reconciliatio n Incentive 05/19/2020 12:00:00 AM [facility]) Bronchoscopy W/Brushing Or Protected Brushings 12:00:00 AM EDT [facility] ([facility], ) Bronchoscopy W/Bronchial Alveolar Lavage 04/22/2020 12 :00:00 AM EDT [facility] ([facility], ) Bronchoscopy W/Biopsy 04/22/2020 12:00:00 AM EDT [facility] ([facility], ) Bronchoscopy, W/Transbronchial Needle Aspiration Biopsy Addl Lobe 04/22/2020 12:00:00 AM EDT [facility] ([facility], ) With Endobronchial Ultrasound Guided 04/22/2020 12:00: 00 AM EDT [facility] ([facility], ) Airway Inhalation Treatment 04/10/2020 12:00:00 AM EDT [facility] ([facility], ) -collection of capillary blood (fingerstick, heel ) -c ollection of capillary blood (fingerstick, heel ) 12/05/2019 12:00:00 AM EDSaulo COLIN ([facility]) HgbA1C HgbA1C 12/05/2019 12:00:00 AM EDT Minesh [facility] ([facility]) Venipuncture (routine) Venipuncture (routine) 07/01/2019 12:00:00 A M KAJAL BUENO ([facility]) HgbA1C HgbA1C 07/01/2019 12:00:00 AM [facility]) Mircro Alb urine Mircro Alb urine 07/01/2019 12:00:00 AM [facility]) CREATININE OTHER SOURCE Creatinine: URINE 07/01/2019 12:00:00 AM ES T [facility] ([facility]) CBC CBC 07/01/2019 12:00:00 AM KAJAL [facility]) CMP-Complete Metabolic Profile CMP-Complete Metabolic Profil e 07/01/2019 12:00:00 AM [facility] ([facility]) Fasting Lipid Profile Fasting Lipid Profile 07/01/2019 12:00:00 AM [facility] ([facility]) Urinalysis-Lab processed Urinalysis-Lab processed 07/01/2019 12:00: 00 AM [facility]) FLUZONE/ multi-dose ( 6mos -older) FLUZONE/ multi-dose ( 6mo s -older) 07/01/2019 12:00:00 AM [facility] ([facility]) IMADM PRQ ID SUBQ/IM NJXS 1 VACCINE ADMINISTRATION 1-IMMUNIZ ATION(adult) 07/01/2019 12:00:00 AM [facility]) PREVNAR 13 -pneumococcal /otits media vaccine PREVNAR 13 -pneumococcal /otits media vaccine 07/01/2019 12:00:00 AM [facility] ([facility]) IMADM PRQ ID SUBQ/IM NJXS EA VACCINE ADMINISTRATION 2+ IMMUN IZATION (adult) 07/01/2019 12:00:00 AM EST [facility] ([facility]) Brief Emotional Behavior Assessment (Distinct Seperate service-same day) Brief Emotional Behavior Assessment (Distinct Seperate service-same day) 07/01/2019 12:00:00 AM EST [facility] ([facility]) Results ID Date Data Source [id number] 06/30/2020 10:41:00 AM EST [facility] Name Value Range Interpretation Code Description Data Kylah rce(s) Supporting Document(s) SARS coronavirus 2 RNA [Presence] in Res piratory specimen by GARTH with probe detection [facility] This lab was ordered by [facility] a nd reported by [facility]. ID Date Data Source [id number] 05/22/2020 08:22:00 AM EST [place] ([facility]) Name Value Range Interpretation Code Description Data Kylah rce(s) Supporting Document(s) GRAN% 73.9 % GRAN% [facility] ([facility]) Note: Responsible Observer: KM HCT 37.1 % HCT [place] ([facility]) Note: Responsible Observer: KM GRAN# 4.2 /mm3 GRAN# [facility] ([facility]) Note: Responsible Observer: KM LY# 1.0 /mm3 Below low normal LY# [place] ([facility]) Note: Responsible Observer: KM HGB 12.3 g/dl HGB [facility] ([facility]) Note: Responsible Observer: KM MCH 27.5 pg MCH [place] ([facility]) Note: Responsible Observer: KM LY% 17.3 % Below low normal LY% [place] ([facility]) Note: Responsible Observer: KM MID# 0.5 /mm3 MID# [facility] ([facility]) Note: Responsible Observer: KM MCV 82.8 um3 MCV [place] ([facility]) Note: Responsible Observer: KM MCHC 33.2 G/DL MCHC [place] ([facility]) Note: Responsible Observer: KM MID% 8.7 % Above high normal MID% [facility] ([facility]) Note: Responsible Observer: KM MPV 10.8 um3 MPV [facility] ([facility]) Note: Responsible Observer: KM WBC 5.6 /mm3 WBC [place] ([facility]) Note: Responsible Observer: KM RBC 4.48 /mm3 RBC [place] ([facility]) Note: Responsible Observer: KM PLT 228 /mm3 PLT [place] ([facility]) Note: Responsible Observer: KM RDW 18.6 % Above high normal RDW [place] ([facility]) Note: Responsible Observer: KM ID Date Data Source [id number] 05/22/2020 08:22:00 AM EST [place] ([facility]) Name Value Range Interpretation Code Description Data Kylah rce(s) Supporting Document(s) Urea nitrogen [Moles/volume] in Blood 26 mg/dl Abo ve high normal Urea Nitrogen [place] ([facility]) Note: Responsible Observer: KM Calcium [Moles/volume] in Urine collected for unspecified durati on 8.7 mg/dl Calcium [place] ([facility]) Note: Responsible Observer: KM Creatinine [Moles/volume] in Vitreous fluid 1 mg/dl Creatinine [place] ([facility]) Note: Responsible Observer: KM Chloride [Moles/volume] in Serum, Plasma or Blood 102 mmol/L Chloride [place] ([facility]) Note: Responsible Observer: KM CO2 27 mmol/L CO2 [place] ([facility]) Note: Responsible Observer: KM EGFR - Non AF AM 55 N/A Above high normal EGFR - Non A F AM [place] ([facility]) Note: Responsible Observer: KM EGFR - AfricanAm > 60 N/A EGFR - AfricanAm [facility] Note: Responsible Observer: KM Potassium [Mass/volume] in Blood 3.6 mmol/L Pot assium [place] ([facility]) Note: Responsible Observer: KM Glucose [Mass/volume] in Urine collected for unspecified duratio n 148 mg/dl Above high normal Glucose [place] ([facility]) Note: Responsible Observer: KM Sodium [Moles/volume] in Serum, Plasma or Blood 136 mmol/L Sodium [place] ([facility]) Note: Responsible Observer: KM ID Date Data Source [id number] 05/12/2020 02:54:00 PM EST [facility] ([facility], ) Name Value Range Interpretation Code Description Data Kylah rce(s) Supporting Document(s) ABG pH (Arterial) 7.419 units 7.350-7.450 Normal (applie s to non-numeric results) [facility]) ABG Total Co2 24.7 meq/L 23.0-31.0 Normal (applies to non-numeric re sults) [facility]) ABG Partial Pressure O2 70.7 mmHg 75.0-100.0 Below low normal [facility]) ABG Partial Pressure Co2 37.3 mmHg 35.0-45.0 Normal (applies to non-numeric results) [facility]) ABG Hco3 23.6 meq/L 22.0-26.0 Normal (applies to non-numeric resul ts) [facility]) ABG Standard Hco3 24.0 meq/L 22.0-26.0 Normal (applies to non- numeric results) [facility]) ABG Base Excess -0.6 Normal (applies to non-numeric results) [facility]) ABG Site Laboratory test result Normal (applies to non-n umeric results) [facility]) ABG O2 Saturation 94.7 % 95.0-99.0 Below low normal M [facility]) ID Date Data Source [id number] 05/06/2020 08:03:[address] [facility] [address] [id number] [phone] NAME SEX PT STATUS ACCOUNT NUMBER CODY AMATO REG REF [id number] ORDERING PHYSICIAN LOCATION MEDICAL RECORD NO. Jannet Terrell MD RAD [id number] ATTENDING PHYSICIAN DATE OF DATE OF EXAM/TIME Matt Huynh MD 1955 05/05/201747 TYPE / EXAM Xray Chest 2 view PA/LAT REASON FOR EXAM MALIGNANT NEOPLASM OF UPPER LOBE, RIGHT SIDE CLINICAL HISTORYMALIGNANT NEOPLASM OF UPPER LOBE, RIGHT SIDE TECHNIQUE: AP and lateral views of the chest were obtained. COMPARISON: Chest radiograph 03/31/2020, CT chest 04/02/2020. FINDINGS: The cardiomediastinal silhouette is unchanged. Large right hilar mass which is better delineated onCT. There is a patchy consolidation in the right lung base which may be related to atelectasis, pleuraleffusion, or pneumonia in the right clinical setting. There is mild atelectatic changes in the left base. There is no pneumothorax. There are degenerative changes of the thoracic spine and shoulders. IMPRESSION: 1. Large right hilar mass, better appreciated on prior CT. 2. Right basilar consolidation which may be related to atelectasis, pleural effusion, or pneumoniain the right clinical setting. Reported By Eddi Nuno DO on 05/06/20802 Signed By Eddi Nuno DO on 05/06/20805 Date Time CC: Eddi Nnuo DO; Matt Huynh MD Techn: BAIAB Trans Dt/Tm: Trans by: DT Prt Dt/Tm: [id number]: Total DLP = 0.00 mGy-cm Fluoroscopy Time (in secs): Name Value Range Interpretation Code Description Data Kylah rce(s) Supporting Document(s) ID Date Data Source [id number] 04/22/2020 11:49:00 AM EDT [facility] ([facility], ) Name Value Range Interpretation Code Description Data Kylah rce(s) Supporting Document(s) Microscopic observation [Identifier] in Unspecified specimen by Non- gynecological cytology method Laboratory test result [facility] ([facility], ) SPECIMEN: Bronchial brushing (right upper lobe) Prepared slides and brush in vial received SPECIMEN ADEQUACY: Satisfactory for evaluation CATEGORIZATION: Atypical cytology DESCRIPTIONS: Scant atypical cells exhbiting variation in size and nuclei with prominent nucleoli in a background of brochial cells and blood elements. Please correlate with surgical case [id number]. COMMENTS: 04/23/2020 - [address](ASCP) 04/23/2020 1149 (Prelim) Signed JYOTSNA SIDDIQUI MD 04/23/2020 1555 ID Date Data Source [id number] 04/22/2020 11:48:00 AM EDT [facility] ([facility]) Name Value Range Interpretation Code Description Data Kylah rce(s) Supporting Document(s) Microscopic observation [Identifier] in Unspecified specimen by Non- gynecological cytology method Laboratory test result [facility] ([facility]) SPECIMEN: FNA Left hilar lymp h node Cytolyt and prepared slides received SPECIMEN ADEQUACY: Satisfactory for evaluation CATEGORIZATION: Positive for Malignancy DESCRIPTIONS: Scattered clusters small groups and single atypical cells noted exhbiting atypical nuclei with prominent single and multiple nucleoli. The background consists of bronchial cells, pulmonary macrophages, scattere lymphocytes and red blood cells. COMMENTS: Please correlate with surgical case [id number]. 04/23/2020 - [address](ASCP) 04/23/2020 1005 (Prelim) Signed JYOTSNA SIDDIQUI MD 04/23/2020 155 ID Date Data Source [id number] 04/22/2020 10:47:00 AM EDT [facility] ([facility]) Name Value Range Interpretation Code Description Data Kylah rce(s) Supporting Document(s) Surgical pathology study Laboratory test result [facility] ([facility]) FINAL DIAGNOSIS A - Lung, right upper [...] molecular testing, if clinically indicated. 04/24/2020 - 111 CLINICAL DIAGNOSIS Abnormal chest x-ray 04/22/2020 - [...] aggregate. All in one. -SV 04/22/2020 - 1526 Signed JYOTSNA SIDDIQUI MD 04/24/2020 1115 ID Date Data Source [id number] 04/22/2020 10:47:00 AM EDT [facility] ([facility]) Name Value Range Interpretation Code Description Data Kylah rce(s) Supporting Document(s) Surgical pathology study Laboratory test result [facility] ([facility]) Addendum 3 Entered: 05/18/2020-1145 PD-L1 KEYTRUDA shows tumor proportion score of 25%/Expression. Positive for BRAF Negative for ALK Negative for ROS1 Negative for KRAS Negative for EGFR See complete reports from [facility] 4/TR 05/18/20201144 Addendum Signed____ Julisa Cerda MD 05/18/20201144 Addendum 2 Entered: 05/15/2020-0659 PD-L1 KEYTRUDA shows tumor proportion score of 25%/Expression. Positive for BRAF Negative for ALK Negative for ROS1 Negative for KRAS See complete reports from [facility] 4/TR 05/15/2020658 Addendum Signed__Bernard_ Julisa Cerda MD 05/15/2020658 Addendum 1 Entered: [...] molecular testing, if clinically indicated. 04/24/2020 - 1114 CLINICAL DIAGNOSIS Abnormal chest x-ray 04/22/2020 - 152 GROSS DIAGNOSIS A - Received in formalin [...] aggregate. All in one. -SV 04/22/2020 - 1526 Signed JYOTSNA SIDDIQUI MD 04/24/2020 1115 ID Date Data Source [id number] 04/22/2020 10:37:00 AM [facility]ONTE P[facility] ([facility]) Name Value Range Interpretation Code Description Data Kylah rce(s) Supporting Document(s) Microscopic observation [Identifier] in Unspecified specimen by Non- gynecological cytology method Laboratory test result [facility] ([facility]) SPECIMEN: Bronchoalveolar lav age (left upper lobe) 5ml [place] SPECIMEN ADEQUACY: Satisfactory for evaluation CATEGORIZATION: Positive for Malignancy DESCRIPTIONS: Scattered small groups of atypical cells exhibiting increased n/c ratios and muclei with prominent macronucleoli. The background consists of bronchial cells, scattered pulmonary macrophages and blood elements. COMMENTS: Please correlate with surgical case [id number]. 04/23/2020 - [address](ASCP) 04/23/2020 1116 (Prelim) Signed JYOTSNA SIDDIQIU MD 04/23/2020 1556 ID Date Data Source [id number] 04/22/2020 10:30:00 AM EDT [facility] ([facility]) Name Value Range Interpretation Code Description Data Kylah rce(s) Supporting Document(s) Microscopic observation [Identifier] in Unspecified specimen by Non- gynecological cytology method Laboratory test result [facility] ([facility]) will discuss at follow-up ID Date Data Source [id number] 04/22/2020 10:14:00 AM EDT [facility] ([facility]) Name Value Range Interpretation Code Description Data Kylah rce(s) Supporting Document(s) Bal Culture Laboratory test result Normal (applies to non- numeric results) [facility] ([facility]) FULL REPORT IN LAB NOTES ([facility] NO GROWTH AEROBICALLY Gram Stain Laboratory test result Normal (applies to non-n umeric results) [facility] (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 Cultural examination is highly recommended for clinical diagnosis. AFB smear Kinyoun NEGATIVE (NO AFB Seen ) ID Date Data Source [id number] 04/22/2020 10:14:00 AM EDT [facility] ([facility]) Name Value Range Interpretation Code Description Data Kylah rce(s) Supporting Document(s) Color Laboratory test result Above high normal [facility] ([facility]) Source Laboratory test result Normal (applies to non-n umeric results) [facility] ([facility]) BRON ALVEOLAR LAVAGE Bal WBC 53 CELLS/uL 0-10 Above high normal [facility] ([facility]) Appearance Laboratory test result Above high normal [facility] ([facility]) ID Date Data Source [id number] 04/22/2020 10:14:00 AM EDT [facility] ([facility]) Name Value Range Interpretation Code Description Data Kylah rce(s) Supporting Document(s) Neutrophils, Bal 5 % Normal (applies to non-numeric results) [facility] ([facility]) Lymphocytes, Bal 25 % Normal (applies to non-numeric results) [facility] ([facility]) Monocytes/Macrophages, Bal 70 % Normal (applies to n on-numeric results) [facility] ([facility]) ID Date Data Source [id number] 04/22/2020 10:14:00 AM EDT [facility]) Name Value Range Interpretation Code Description Data Kylah rce(s) Supporting Document(s) Afb Smear Laboratory test result [facility] ([facility]) Due to limited sensitivity, smear result s should be used as an adjunct in evaluating patient tuberculosis status. Cultural examination is highly recommended for clinical diagnosis. AFB smear Kinyoun NEGATIVE (NO AFB Seen ) Afb Culture Laboratory test result [facility] ([facility]) Testing performed at reference lab . Rep ort copy to follow on a separate form. 06/06/20 REF LAB#:[id number] FULL REPORT IN LAB NOTES ([facility] and [facility]). No Acid-Fast Bacilli Isolated after 6 Weeks. ID Date Data Source [id number] 04/22/2020 10:14:00 AM EDT [facility] ([facility]) Name Value Range Interpretation Code Description Data Kylah rce(s) Supporting Document(s) Fungal Smear Laboratory test result [facility] ([facility]) Testing performed at reference lab . Rep ort copy to follow on a separate form. 06/06/20 REF LAB#:[id number] SIMA/Calcofluor preparatio No fungus observed. Fungal Culture Other Source Laboratory test result [facility] ([facility]) Testing performed at reference lab . Rep ort copy to follow on a separate form. 06/06/20 REF LAB#:[id number] FUNGUS CULTURE [facility] No Yeast or Mold Isolated after 4 weeks. ID Date Data Source [id number] 04/22[facility]2020 [facility] Name Value Range Interpretation Code Description Data Kylah rce(s) Supporting Document(s) Glucose [Mass/volume] in Capillary blood by Glucometer 168 mg/dL 80-115 Above high normal [facility] ([facility]) ID Date Data Source [id number] 04/22/2020 08:48:[facility] Name Value Range Interpretation Code Description Data Kylah rce(s) Supporting Document(s) Glucose, Fasting 146 mg/dL 70-100 Above high normal [facility] ([facility]) Blood Urea Nitrogen 19 mg/dL 7-18 Above high normal [facility] ([facility]) Glomerular Filtration Rate 51.8 Normal (applies to n on-numeric results) [facility] ([facility]) <content>Units are mL/min/1.73 m2</content>
<content></content>
<content>Chronic Kidney Disease Staging per NKF:</content>
<content></content>
<content>Stage I & II GFR >=60 Normal to Mildly Decreased</content>
<content>Stage III GFR 30- 59 Moderately Decreased</content>
<content>Stage IV GFR 15-29 Severely Decreased</content>
<content>Stage V GFR <15 Very Little GFR Left</content>
<content>ESRD GFR <15 on [employer]OVERNMENT [employer] PROFESSIONAL</content>
<content></content> Creatinine For GFR 1.12 mg/dL 0.55-1.30 Normal (applies to non -numeric results) [facility] ([facility], ) Potassium Serum 3.6 meq/L 3.5-5.1 Normal (applies to non-numeric results) [facility] ([facility], ) Sodium Level 138 meq/L 136-145 Normal (applies to non-numeric res ults) [facility] ([facility]) Carbon Dioxide Level 31 meq/L 21-32 Normal (applies to non-num nando results) [facility] ([facility], ) Anion Gap 6 meq/L 8-16 Below low normal [facility] ( [facility]) Chloride Level 101 meq/L 98-107 Normal (applies to non-numeric r esults) [facility] ([facility], ) Ast/Sgot 30 U/L 7-37 Normal (applies to non-numeric resul ts) [facility] ([facility], ) Calcium Level 9.3 mg/dL 8.8-10.2 Normal (applies to non-numeric re sults) [facility] ([facility], ) Alt/SGPT 31 U/L 12-78 Normal (applies to non-numeric resul ts) [facility] ([facility]) Total Protein 8.0 GM/DL 6.4-8.2 Normal (applies to non-numeric re sults) [facility] ([facility], ) Alkaline Phosphatase 213 U/L 45-117 Above high normal [facility] ([facility]) Bilirubin,Total 1.5 mg/dL 0.2-1.0 Above high normal [facility] ([facility], ) Albumin/Globulin Ratio 0.9 1.2-2.2 Below low normal [facility] ([facility], ) Albumin 3.7 GM/DL 3.2-5.2 Normal (applies to non-numeric resul ts) [facility] ([facility], ) ID Date Data Source [id number] 04/22/2020 08:48:00 AM EDT [facility] ([facility] ) Name Value Range Interpretation Code Description Data Kylah rce(s) Supporting Document(s) Red Blood Count 5.45 10 4.00-5.40 Above high normal [facility] ([facility], ) White Blood Count 11.7 10 4.0-10.0 Above high normal [facility] Hemoglobin 13.6 g/dL 12.0-15.5 Normal (applies to non-numeric resul ts) [facility] ([facility]) Hematocrit 45.3 % 36.0-47.0 Normal (applies to non-numeric resul ts) [facility] ([facility]) Mean Corpuscular Hemoglobin 25.0 pg 27.0-33.0 Below low normal [facility] ([facility]) Mean Corpuscular Volume 83.1 fl 80.0-96.0 Normal ( applies to non-numeric results) [facility] Red Cell Distribution Width 15.3 % 11.5-14.5 Above high normal [facility] ([facility]) Mean Corpuscular HGB Conc 30.0 g/dL 32.0-36.5 Below low normal [facility]) Platelet Count, Automated 194 10 150-450 Normal (applies to non-numeric results) [facility] ([facility]) [place] % 8.9 % 0.0-5.0 Above high normal [facility] ([facility]) Neutrophils % 76.7 % 36.0-66.0 Above high normal [facility] ([facility]) Lymph % 11.2 % 24.0-44.0 Below low normal [facility] ( [facility]) Baso % 0.9 % 0.0-1.0 Normal (applies to non-numeric resul ts) [facility] ([facility]) Eos % 1.6 % 0.0-3.0 Normal (applies to non-numeric resul ts) [facility] ([facility]) Immature Granulocyte % 0.7 % 0-3.0 Normal (applies to non-n umeric results) [facility] ([facility]) Nucleated Red Blood Cell % 0.0 % 0-0 Normal (applies to n on-numeric results) [facility] ([facility]) Lymph # 1.3 10 1.5-5.0 Below low normal [facility] ( [facility]) Neutrophils # 9.0 10 1.5-8.5 Above high normal [facility] ([facility]) Eos # 0.2 10 0.0-0.5 Normal (applies to non-numeric resul ts) [facility] ([facility]) Baso # 0.1 10 0.0-0.2 Normal (applies to non-numeric resul ts) [facility] ([facility]) [place] # 1.0 10 0.0-0.8 Above high normal [facility] ([facility]) ID Date Data Source [id number] 04/22/2020 08:48:[address] [facility]) Name Value Range Interpretation Code Description Data Kylah rce(s) Supporting Document(s) Angiotensin converting enzyme [Enzymatic activity/volu me] in Serum or Plasma 38 U/L 14-82 Normal (applies to non-numeric results) [facility]) Performed at: RN - [facility] [place] [id number] Software Quality Assurance Engineer: Lily Weaver MD, Phone: [phone] ID Date Data Source [id number] 04/22/2020 08:48:[address] [facility]) Name Value Range Interpretation Code Description Data Kylah rce(s) Supporting Document(s) Prothrombin Time 13.0 s 12.5-14.3 Normal (applies to non-numeric results) [facility] ([facility]) Inr 0.96 Normal (applies to non-numeric resul ts) [facility]) THERAPUTIC HUMAN INR VALUES INDICATIONS NORMAL RANGES PROPHYLAXIS/TREATMENT OF: VENOUS THROMBOSIS 2.0-3.0 PULMONARY EMBOLISM 2.0-3.0 PREVENTION OF SYSTEMIC EMBOLISM FROM: TISSUE HEART VALVES 2.0-3.0 ACUTE MYOCARDIAL INFARCTION 2.0-3.0 VALVULAR HEART DISEASE 2.0-3.0 ATRIAL FIBRILLATION 2.0-3.0 MECHANICAL VALVES(HIGH RISK) 2.5-3.5 RECURRENT MYOCARDIAL INFARCTION 2.5-3.5 ID Date Data Source [id number] 04/17/2020 01:00:00 PM EDT [facility] Name Value Range Interpretation Code Description Data Kylah rce(s) Supporting Document(s) SARS coronavirus 2 RNA [facility] This lab was ordered by [facility] and reported by [facility]. ID Date Data Source [id number] 04/07/2020 09:24:[address] [facility] [address] [place] [address] [phone] NAME SEX PT STATUS ACCOUNT NUMBER CODY AMATO REG REF [id number] ORDERING PHYSICIAN LOCATION MEDICAL RECORD NO. Marina Gibson CT [id number] ATTENDING PHYSICIAN DATE OF DATE OF EXAM/TIME Matt Huynh MD 1955 04/02/201435 TYPE / EXAM CT Thorax without contrast REASON FOR EXAM F/U RIGHT SIDED PLEURAL EFFUSION Clinical History/Indication for Exam: F/U RIGHT SIDED PLEURAL EFFUSION CT CHEST WITHOUT INTRAVENOUS CONTRAST INDICATION: F/U RIGHT SIDED PLEURAL EFFUSION TECHNIQUE: Axial computed tomography images of the chest without intravenous contrast. Sagittal and coronal reformatted images were created and reviewed. This CT exam was performed using one or more of the following dose reduction techniques: automated exposure control, adjustment of the mA and/or kV according to patient size, and/or use of iterative reconstruction technique. COMPARISON: No relevant prior studies available. FINDINGS: Lungs: There are consolidations within the bilateral upper and lower lobes suggesting multilobar pneumonia. Pleural space: There is a small right pleural effusion. No pneumothorax. Heart: There is cardiomegaly. There is a small pericardial effusion. Bones/joints: Unremarkable. No acute fracture. No dislocation. Soft tissues: Unremarkable. Vasculature: Unremarkable. No thoracic aortic aneurysm. Lymph nodes: There are calcified hilar lymph nodes. Spleen: Borderline splenomegaly. IMPRESSION: 1. There is cardiomegaly. 2. There is a small pericardial effusion. 3. There are consolidations within the bilateral upper and lower lobes suggesting multilobar pneumonia. 4. There is a small right pleural effusion. 5. There are calcified hilar lymph nodes. 6. Borderline splenomegaly. Automatic exposure control was used as a dose lowering technique. REPORT SIGNATURE ON FILE 04/07/2020 (09:24 Eastern Time ) Signed by: Elkin Conklin M.D. Reported By Elkin Conklin MD on 04/07/20923 Signed By Elkin Conklin MD on 04/07/20923 Date Time CC: Elkin Conklin MD; Matt Huynh MD Techn: MORSA Trans Dt/Tm: Trans by: DT Prt Dt/Tm: : Total DLP = 349.00 mGy-cm : Total Radiation Dose = 4.5370 mSv Lifetime Dose: 4.5370 mSv Name Value Range Interpretation Code Description Data Kylah rce(s) Supporting Document(s) ID Date Data Source [id number] 03/31/2020 04:43:[address] [facility] [address] [place] [id number] [phone] NAME SEX PT STATUS ACCOUNT NUMBER CODY AMATO REG REF [id number] ORDERING PHYSICIAN LOCATION MEDICAL RECORD NO. Marina Gibson [facility] [id number] ATTENDING PHYSICIAN DATE OF DATE OF EXAM/TIME Matt Huynh MD 1955 03/31/201641 TYPE / EXAM Xray Chest 2 view PA/LAT REASON FOR EXAM F/U RLL PNEUMONIA CODY AMATO [id number] 1955 ADDENDUM Critical findings were reported by phone to Marina Gibson on April 01, 2020 at 0932 hours. Addendum Reported By Sherwin Esqueda MD on 04/01/20927 Signed By hSerwin Esqueda MD on 04/01/20927 Trans Dt/Tm: Trans by: MEDQ [p pg] COMPARISON: March 02 and December 05, 2019 FINDINGS: Again noted is increased density towards the right lung base. It is associated with a moderately sized right-sided pleural effusion. The effusion appears somewhat larger than on both prior studies.Given the stability of this finding, pulmonary mass is considered a possible diagnosis. CT advised to exclude this possibility. Clinical correlation advised (WBC, temperature). The left lung remains essentially clear. The heart is at the upper limits for normal in size. IMPRESSION: 1. Moderate pleural effusion towards the right lung base, slightly enlarged compared to the prior studies. 2. Increased density towards the right lung base. CT advised to exclude the possibility of neoplasm. Reported By Sherwin Esqueda MD on 03/31/201642 Signed By Sherwin Esqueda MD on 03/31/20 164 Date Time CC: Sherwin Esqueda MD; Matt Huynh MD Techn: PELBU Trans Dt/Tm: Trans by: DT Prt Dt/Tm: : Total DLP = 0.00 mGy-cm Fluoroscopy Time (in secs): Name Value Range Interpretation Code Description Data Kylah rce(s) Supporting Document(s) ID Date Data Source [id number] 03/03/2020 09:49:[address] [facility] [address] [place] [address] [phone] NAME SEX PT STATUS ACCOUNT NUMBER CODY AMATO REG REF [id number] ORDERING PHYSICIAN LOCATION MEDICAL RECORD NO. Marina Gibson [facility] [id number] ATTENDING PHYSICIAN DATE OF DATE OF EXAM/TIME Matt Huynh MD 1955 03/02/201334 TYPE / EXAM Xray Chest 2 view PA/LAT REASON FOR EXAM COUGH COMPARISON: December 05, 2019 FINDINGS: Again demonstrated is a moderately sized pleural effusion on the right. Consolidation is seen in the right midlung in a pattern similar to seen on the previous study. Although this finding may be associated with pneumonia. Clinical correlation advised: Does the patient have history of infection or increased WBC? If the patient is at elevated risk for pulmonary neoplasm, further evaluation withCT advised. There is no acute osseous abnormality. IMPRESSION: Stable right-sided pleural effusion. Increased density seen towards the right lower lung. Clinical correlation advised for possibility of pneumonia versus pulmonary mass. Reported By Sherwin Esqueda MD on 03/03/20948 Signed By Sherwin Esqueda MD on 03/03/20 0953 Date Time CC: Sherwin Esqueda MD; Matt Huynh MD Techn: CARAI Trans Dt/Tm: Trans by: DT Prt Dt/Tm: [id number]: Total DLP = 0.00 mGy-cm Fluoroscopy Time (in secs): Name Value Range Interpretation Code Description Data Kylah rce(s) Supporting Document(s) ID Date Data Source [id number] 12/05/2019 10:08:[address] [facility] [address] [place] [address] [place] [address] [phone] NAME SEX PT STATUS ACCOUNT NUMBER CODY AMATO REG REF [id number] ORDERING PHYSICIAN LOCATION MEDICAL RECORD NO. Marina JUDY [facility] [id number] ATTENDING PHYSICIAN DATE OF DATE OF EXAM/TIME Matt Huynh MD 1955 12/05/191000 TYPE / EXAM Xray Chest 2 view PA/LAT REASON FOR EXAM COUGH COMPARISON: February 25, 2016 FINDINGS: The cardiac silhouette is within normal limits. The mediastinal silhouette is also unremarkable. Airspace opacity is seen in the right middle lobe. A small pleural effusion is seen on that side. The left lung is essentially clear IMPRESSION: CRITICAL RESULT COMMUNICATED TO JOI Gibson BY TELEPHONE AT 1030 hours on December 05, 2019. Right middle lobe pneumonia. Associated parapneumonic effusion. Reported By Sherwin Esqueda MD on 12/05/19 1008 Signed By Sherwin Esqueda MD on 12/05/19 1026 Date Time CC: Sherwin Esqueda MD; Matt Huynh MD Techn: CUMME Trans Dt/Tm: Trans by: DT Prt Dt/Tm: [id number]: Total DLP = 0.00 mGy-cm Fluoroscopy Time (in secs): Name Value Range Interpretation Code Description Data Kylah rce(s) Supporting Document(s) ID Date Data Source [id number] 12/05/2019 09:33:00 AM EDT [facility] ([facility]) Name Value Range Interpretation Code Description Data Kylah rce(s) Supporting Document(s) Hemoglobin A1c/Hemoglobin.total in Blood 7.3 na Above high normal Hgba1c [facility] ([facility]) Note: Responsible Observer: KM ID Date Data Source [id number] 07/14/2019 12:24:00 PM [facility] [address] [place] [address] [place] [address] [phone] NAME SEX PT STATUS ACCOUNT NUMBER CODY AMATO REG REF [id number] ORDERING PHYSICIAN LOCATION MEDICAL RECORD NO. Matt Huynh MD MAMMO [id number] ATTENDING PHYSICIAN DATE OF DATE OF EXAM/TIME Matt Huynh MD 1955 07/11/191735 TYPE / EXAM 3D DIG MAMMO SCREEN BILAT REASON FOR EXAM SCREENING LAST CLINICAL BREAST EXAM: 2 years ago FIVE YEAR RISK: 1.1% LIFETIME RISK: 4.2% FAMILY HISTORY OF BREAST CARCINOMA: None COMPARISON: July 05, 2018 2D bilateral digital mammogram in the CC and MLO projections was performed with supplemental 3D tomosynthesis of both breasts. FINDINGS: Craniocaudad and oblique lateral views of the breasts were obtained. The breasts are primarily of fat density. There is no dominant mass, suspicious clustered microcalcification or architectural distortion. Benign appearing calcifications remain stable in the right breast. A peripherally calcified mass seen in the upper-outer quadrant of the posterior depth of the right breast also remains stable. On the current study, a new, peripherally calcified lesion is seen in the posterior depth of the left upper breast. It has benign characteristics. IMPRESSION: No mammographic evidence of malignancy. Yearly screening recommended. OVERALL FINAL ASSESSMENT OF FINDINGS BI-RADS 2 - Benign findings OVERALL FINAL ASSESSMENT OF THE BREAST COMPOSITION Breast Density Classification: A Description: The breasts are almost entirely fatty. This mammogram was read with the assistance of [employer], an FDA- approved computer-aided detection system for mammography. Reported By Sherwin Esqueda MD on 07/14/19 1224 Signed By Sherwin Esqueda MD on 07/14/19 1228 Date Time CC: Sherwin Esqueda MD; Matt Huynh MD Techn: PELBU Trans Dt/Tm: Trans by: DT Prt Dt/Tm: 14: Total DLP = 0.00 mGy-cm : Total Radiation Dose = 0.0000 mSv Lifetime Dose: 0 mSv Name Value Range Interpretation Code Description Data Kylah rce(s) Supporting Document(s) ID Date Data Source [id number] 07/01/2019 09:34:00 AM EST [facility] ([facility]) Name Value Range Interpretation Code Description Data Kylah rce(s) Supporting Document(s) Hemoglobin A1c/Hemoglobin.total in Blood 8.0 na Above high normal Hgba1c [facility] ([facility]) Note: Responsible Observer: AW ID Date Data Source [id number] 07/01/2019 09:34:00 AM EST [facility] ([facility]) Name Value Range Interpretation Code Description Data Kylah rce(s) Supporting Document(s) Blood [Presence] in Urine by Visual Negative Brayan/uL BLOOD [facility] ([facility]) Note: Responsible Observer: AW LEUK Negative Priscilla/uL LEUK [facility] ([facility]) Note: Responsible Observer: AW Clarity of Pleural fluid from Fetus Clear N/A CLARITY [facility] ([facility]) Note: Responsible Observer: AW Ketones [Presence] in Blood by Tablet Negative N/A KETONES [facility] ([facility]) Note: Responsible Observer: AW Color of Exudate from wound Yellow N/A COLOR [facility] ([facility]) Note: Responsible Observer: AW NITRITES Negative N/A NITRITES [facility] ([facility]) Note: Responsible Observer: AW Specific gravity of Pericardial fluid by Refractometry 1.020 N/A SPECIFIC GRAVITY [facility] ([facility]) Note: Responsible Observer: AW pH of Vaginal fluid by Test strip 7.0 N/A PH [facility] ([facility]) Note: Responsible Observer: AW URINE BILI Negative N/A URINE BILI [facility] ([facility]) Note: Responsible Observer: AW URINE GLUCOSE >=1000 mg/dL URINE GLUCOSE [facility] ([facility]) Note: Responsible Observer: AW Urobilinogen [Presence] in Urine by Automated test strip 1.0 EU/dL UROBILINOGEN [facility] ([facility]) Note: Responsible Observer: AW URINE PROTEIN Negative mg/dL URINE PROTEIN [facility] ([facility]) Note: Responsible Observer: AW ID Date Data Source [id number] 07/01/2019 09:34:00 AM EST [facility] ([facility]) Name Value Range Interpretation Code Description Data Kylah rce(s) Supporting Document(s) Cholesterol [Moles/volume] in Pericardial fluid 172 mg/dl Cholesterol [facility] ([facility]) Note: Responsible Observer: AW HDL 43 mg/dl HDL [facility] ([facility]) Note: Responsible Observer: AW Dir. LDL 64 mg/dl Dir. LDL [facility] ([facility]) Note: Responsible Observer: AW Triglycerides 169 mg/dl Above high normal Triglycerides G [facility] ([facility]) Note: Responsible Observer: AW ID Date Data Source [id number] 07/01/2019 09:34:00 AM EST [facility] ([facility]) Name Value Range Interpretation Code Description Data Kylah rce(s) Supporting Document(s) Alkaline Phos 179 IU/L Above high normal Alkaline Phos G [facility] ([facility]) Note: Responsible Observer: AW Albumin [Mass/volume] in Blood by Bromocresol purple ( BCP) dye binding method 4.2 g/dl Albumin [facility] ([facility]) Note: Responsible Observer: AW ALT 16 IU/L ALT [facility] ([facility]) Note: Responsible Observer: AW AST 22 IU/L AST [facility] ([facility]) Note: Responsible Observer: AW Urea nitrogen [Moles/volume] in Blood 19 mg/dl Urea Nitrogen [facility] ([facility]) Note: Responsible Observer: AW Calcium [Moles/volume] in Urine collected for unspecified durati on 9.4 mg/dl Calcium [facility] ([facility]) Note: Responsible Observer: AW CO2 26 mmol/L CO2 [facility] ([facility]) Note: Responsible Observer: AW Chloride [Moles/volume] in Serum, Plasma or Blood 103 mmol/L Chloride [facility] ([facility]) Note: Responsible Observer: AW EGFR - AfricanAm > 60 N/A EGFR - AfricanAm [facility] ([facility]) Note: Responsible Observer: AW EGFR - Non AF AM 56 N/A Above high normal EGFR - Non A F AM [facility] ([facility]) Note: Responsible Observer: AW Creatinine [Moles/volume] in Vitreous fluid 1 mg/dl Creatinine [facility] ([facility]) Note: Responsible Observer: AW Sodium [Moles/volume] in Serum, Plasma or Blood 140 mmol/L Sodium [facility] ([facility]) Note: Responsible Observer: AW Glucose [Mass/volume] in Urine collected for unspecified duratio n 126 mg/dl Above high normal Glucose [facility] ([facility]) Note: Responsible Observer: AW Potassium [Mass/volume] in Blood 4.1 mmol/L Pot assium [facility] ([facility]) Note: Responsible Observer: AW Total Bilirubin 1 mg/dl [facility] Bilirubin [facility] ([facility]) Note: Responsible Observer: AW Total Protein 7.2 g/dl Total Protein [facility]) Note: Responsible Observer: AW ID Date Data Source [id number] 07/01/2019 09:34:00 AM EST [facility] ([facility]) Name Value Range Interpretation Code Description Data Kylah rce(s) Supporting Document(s) GRAN% 67.2 % GRAN% [facility] ([facility]) Note: Responsible Observer: AW GRAN# 2.4 /mm3 Below low normal GRAN# [facility] ([facility]) Note: Responsible Observer: AW HCT 37.6 % HCT [facility] ([facility]) Note: Responsible Observer: AW HGB 12.2 g/dl HGB [facility] ([facility]) Note: Responsible Observer: AW LY# 1.0 /mm3 Below low normal LY# [facility] ([facility]) Note: Responsible Observer: AW LY% 26.9 % LY% [facility] ([facility]) Note: Responsible Observer: AW MCH 27.4 pg MCH [facility] ([facility]) Note: Responsible Observer: AW MCHC 32.5 G/DL MCHC [facility] ([facility]) Note: Responsible Observer: AW MID% 5.9 % MID% [facility] ([facility]) Note: Responsible Observer: AW MCV 84.3 um3 MCV [facility] ([facility]) Note: Responsible Observer: AW MID# 0.2 /mm3 MID# [facility] ([facility]) Note: Responsible Observer: AW PLT 147 /mm3 Below low normal PLT [facility] ([facility]) Note: Responsible Observer: AW MPV 10.7 um3 MPV [facility] ([facility] [facility]) Note: Responsible Observer: AW WBC 3.6 /mm3 Below low normal WBC [place] ([facility]) Note: Responsible Observer: AW RBC 4.46 /mm3 RBC MY[facility] ([facility]) Note: Responsible Observer: AW RDW 17.1 % Above high normal RDW [facility] ([facility]) Note: Responsible Observer: AW ID Date Data Source [id number] 07/01/2019 09:34:00 AM EST [place] ([facility]) Name Value Range Interpretation Code Description Data Kylah rce(s) Supporting Document(s) ACR 35.7 ug/mg Above high normal ACR [facility] ([facility]) Note: Responsible Observer: AW Urine Creat 102.4 mg/dl Urine Creat [facility] ([facility]) Note: Responsible Observer: AW Micro alb 36.5 mg/L Above high normal Micro alb SHASTAWA Y ([facility]) Note: Responsible Observer: AW Procedure Social History Code Duration Value Status Description Data Source(s ) Smoking 05/28/2020 12:00:00 AM EST Patient is a former smoker completed Patient is a former smoker [facility] ([facility]) Vital Signs ID Date Data Source UNK Name Value Range Interpretation Code Description Data Source(s) Oxygen saturation in Arterial blood by Pulse oximetry 98 % 98 % [place] ([facility]) Body surface area Derived from formula 1.86 m2 1.86 m2 [place] ([facility]) Body mass index (BMI) [Ratio] 36.5 kg/m2 36.5 k g/m2 [place] ([facility]) Body weight 193 [lb_av] 193 [lb_av] [place] ([facility]) Body height 61 [in_i] 61 [in_i] [place] ([facility]) Heart rate 110 /min 110 /min [place] ([facility]) Diastolic blood pressure 68 mm[Hg] 68 mm[Hg] [place] ([facility]) Systolic blood pressure 122 mm[Hg] 122 mm[Hg] [facility] Systolic blood pressure 130 mm[Hg] 130 mm[Hg] [facility] Body surface area Derived from formula 1.81 m2 1.81 m2 [facility] ([facility]) Body weight 84.823 kg 84.823 kg [facility] ([facility]) [place] body weight 100 [lb_av] 100 [lb_av] [facility] Body mass index (BMI) [Ratio] 36.5 kg/m2 36.5 k g/m2 [facility] ([facility]) Body weight 187.00 [lb_av] 187.00 [lb_av] [facility] Body height 60 [in_i] 60 [in_i] [facility] ([facility]) 5'0" Oxygen saturation in Arterial blood by Pulse oximetry 99 % 99 % [facility] ([facility]) o2 sat on 2L Heart rate 118 /min 118 /min [facility] ([facility], ) Diastolic blood pressure 68 mm[Hg] 68 mm[Hg] [facility] Body surface area Derived from formula 1.83 m2 1.83 m2 [place] ([facility]) Body mass index (BMI) [Ratio] 35.2 kg/m2 35.2 k g/m2 [place] ([facility]) Body weight 186.375 [lb_av] 186.375 [lb_av] [facility] Body height 61 [in_i] 61 [in_i] [place] ([facility]) Respiratory rate 32 /min 32 /min [place] ([facility]) Heart rate 114 /min 114 /min [place] ([facility]) Diastolic blood pressure 60 mm[Hg] 60 mm[Hg] [place] ([facility]) Systolic blood pressure 100 mm[Hg] 100 mm[Hg] [facility] ([facility]) Inhaled oxygen concentration 28 % 28 % [place] ([facility]) Inhaled oxygen flow rate 2 L/min 2 L/min [facility]) Oxygen saturation in Arterial blood by Pulse oximetry 98 % 98 % [place] ([facility]) Body surface area Derived from formula 1.86 m2 1.86 m2 [place] ([facility]) Body mass index (BMI) [Ratio] 36.3 kg/m2 36.3 k g/m2 [place] ([facility]) Body weight 192 [lb_av] 192 [lb_av] [place] ([facility]) Body height 61 [in_i] 61 [in_i] [place] ([facility]) Diastolic blood pressure 79 mm[Hg] 79 mm[Hg] [place] ([facility]) Systolic blood pressure 121 mm[Hg] 121 mm[Hg] [facility] ([facility]) Body surface area Derived from formula 1.83 m2 1.83 m2 [facility] ) Body weight 86.184 kg 86.184 kg [facility] ([facility], ) [place] body weight 100 [lb_av] 100 [lb_av] [facility] ([facility], ) Body mass index (BMI) [Ratio] 37.1 kg/m2 37.1 k g/m2 [facility] ([facility]) Body weight 190.00 [lb_av] 190.00 [lb_av] [facility] [facility] ([facility]) Body height 60 [in_i] 60 [in_i] [facility] ([facility]) 5'0" Oxygen saturation in Arterial blood by Pulse oximetry 95 % 95 % [facility] ([facility]) Room Air Heart rate 88 /min 88 /min [facility] ([facility]) Diastolic blood pressure 60 mm[Hg] 60 mm[Hg] [facility] ([facility]) Systolic blood pressure 120 mm[Hg] 120 mm[Hg] [facility] Body surface area Derived from formula 1.81 m2 1.81 m2 [place] ([facility]) Body mass index (BMI) [Ratio] 34.2 kg/m2 34.2 k g/m2 [place] ([facility]) Body weight 181 [lb_av] 181 [lb_av] [place] ([facility]) Body height 61 [in_i] 61 [in_i] [place] ([facility]) Heart rate 90 /min 90 /min [place] ([facility]) Diastolic blood pressure 55 mm[Hg] 55 mm[Hg] [place] ([facility]) Systolic blood pressure 99 mm[Hg] 99 mm[Hg] [facility]) Body surface area Derived from formula 1.81 m2 1.81 m2 [facility] ([facility]) Body weight 84.370 kg 84.370 kg [facility] ([facility]) [place] body weight 100 [lb_av] 100 [lb_av] [facility] ([facility]) Body mass index (BMI) [Ratio] 36.3 kg/m2 36.3 k g/m2 [facility] ([facility]) Body weight 186.00 [lb_av] 186.00 [lb_av] [facility] ([facility]) Body height 60 [in_i] 60 [in_i] [facility] ([facility]) 5'0" Oxygen saturation in Arterial blood by Pulse oximetry 98 % 98 % [facility] ([facility]) Heart rate 91 /min 91 /min [facility] ([facility]) Diastolic blood pressure 62 mm[Hg] 62 mm[Hg] [facility] ([facility]) Systolic blood pressure 108 mm[Hg] 108 mm[Hg] [facility] ([facility]) Body weight 87.545 kg 87.545 kg [facility] ([facility]) [place] body weight 100 [lb_av] 100 [lb_av] [facility] [facility] ([facility]) Body mass index (BMI) [Ratio] 37.7 kg/m2 37.7 k g/m2 [facility] ([facility]) Body weight 193.00 [lb_av] 193.00 [lb_av] [facility] Body height 60 [in_i] 60 [in_i] [facility] ([facility]) 5'0" Oxygen saturation in Arterial blood by Pulse oximetry 90 % 90 % [facility] ([facility]) Heart rate 90 /min 90 /min [facility] ([facility]) Diastolic blood pressure 70 mm[Hg] 70 mm[Hg] [facility] ([facility]) Systolic blood pressure 110 mm[Hg] 110 mm[Hg] [facility] ([facility]) Systolic blood pressure 100 mm[Hg] 100 mm[Hg] [facility] Oxygen saturation in Arterial blood by Pulse oximetry 95 % 95 % [place] ([facility]) Body surface area Derived from formula 1.85 m2 1.85 m2 [place] ([facility]) Body mass index (BMI) [Ratio] 35.9 kg/m2 35.9 k g/m2 [place] ([facility]) Body weight 190 [lb_av] 190 [lb_av] [place] ([facility]) Body height 61 [in_i] 61 [in_i] [place] ([facility]) Respiratory rate 24 /min 24 /min [place] ([facility]) Heart rate 90 /min 90 /min [place] ([facility]) Diastolic blood pressure 68 mm[Hg] 68 mm[Hg] [facility]) Oxygen saturation in Arterial blood by Pulse oximetry 93 % 93 % [facility]) Body surface area Derived from formula 1.86 m2 1.86 m2 [place] ([facility]) Body mass index (BMI) [Ratio] 36.7 kg/m2 36.7 k g/m2 [place] ([facility]) Body weight 194 [lb_av] 194 [lb_av] [place] ([facility]) Body height 61 [in_i] 61 [in_i] [place] ([facility]) Body temperature 98.7 [degF] 98.7 [degF] [facility] ([facility]) Respiratory rate 30 /min 30 /min [place] ([facility]) Heart rate 110 /min 110 /min [place] ([facility]) Diastolic blood pressure 50 mm[Hg] 50 mm[Hg] [place] ([facility]) Systolic blood pressure 82 mm[Hg] 82 mm[Hg] [facility] ([facility]) Body surface area Derived from formula 1.89 m2 1.89 m2 [facility]) Body mass index (BMI) [Ratio] 37.9 kg/m2 37.9 k g/m2 [facility]) Body weight 200.375 [lb_av] 200.375 [lb_av] [facility] ([facility]) Body height 61 [in_i] 61 [in_i] [place] ([facility]) Respiratory rate 20 /min 20 /min [place] ([facility]) Heart rate 88 /min 88 /min [place] ([facility]) Diastolic blood pressure 62 mm[Hg] 62 mm[Hg] [place] ([facility]) Systolic blood pressure 110 mm[Hg] 110 mm[Hg] [facility] ([facility]) Oxygen saturation in Arterial blood by Pulse oximetry 96 % 96 % [place] ([facility]) Body surface area Derived from formula 1.90 m2 1.90 m2 [facility]) Body mass index (BMI) [Ratio] 38.2 kg/m2 38.2 k g/m2 [facility]) Body weight 202 [lb_av] 202 [lb_av] [place] ([facility]) Body height 61 [in_i] 61 [in_i] [place] ([facility]) Body temperature 98.2 [degF] 98.2 [degF] [facility] ([facility]) Respiratory rate 26 /min 26 /min [place] ([facility]) Heart rate 88 /min 88 /min [place] ([facility]) Diastolic blood pressure 50 mm[Hg] 50 mm[Hg] [place] ([facility]) Systolic blood pressure 98 mm[Hg] 98 mm[Hg] [facility] ([facility]) Oxygen saturation in Arterial blood by Pulse oximetry 95 % 95 % [place] ([facility]) Body height 61 [in_i] 61 [in_i] [place] ([facility]) Body temperature 97.3 [degF] 97.3 [degF] [facility] ([facility]) Respiratory rate 26 /min 26 /min [place] ([facility]) Heart rate 80 /min 80 /min [place] ([facility]) Body surface area Derived from formula 1.95 m2 1.95 m2 [place] ([facility]) Body mass index (BMI) [Ratio] 40.6 kg/m2 40.6 k g/m2 [place] ([facility]) Body weight 215 [lb_av] 215 [lb_av] [place] ([facility]) Body height 61 [in_i] 61 [in_i] [place] ([facility]) Heart rate 78 /min 78 /min [place] ([facility]) Diastolic blood pressure 77 mm[Hg] 77 mm[Hg] [place] ([facility]) Systolic blood pressure 143 mm[Hg] 143 mm[Hg] [facility] ([facility]) Patient Treatment Plan of Care Planned Activity Planned Date Details Description Data Source (s) calcipotriene 0.03206 MG/MG Topical Ointment [Calcitre ne] 07/01/2020 12:00:00 AM [facility] ([facility]) Clobetasol Propionate 0.0005 MG/MG Topical Ointment 07/01/20 12:00:00 AM [facility] Trazodone Hydrochloride 50 MG Oral Tablet 06/27/2020 12:00:[address] [facility] ([facility]) Lorazepam 0.5 MG Oral Tablet 06/27/2020 12:00:00 AM [facility]) OneTouch Delica Lancets 33G Miscellaneous 06/19/2020 12:00:[address] [facility] ([facility]) OneTouch Verio In Vitro Strip 06/19/2020 12:00:00 AM [facility]) OneTouch Verio Flex System w/Device Kit 06/19/2020 12:00:00 AM [facility]) Accu-Chek Guide In Vitro Strip 06/19/2020 12:00:00 AM [facility]) Accu-Chek Guide w/Device Kit 06/19/2020 12:00:00 AM [facility]) Accu-Chek FastClix Lancets Miscellaneous 06/19/2020 12:00:00 AM [facility]) Lorazepam 0.5 MG Oral Tablet 06/11/2020 12:00:00 AM [facility]) Prednisone 20 MG Oral Tablet 04/07/2020 12:00:00 AM Counts include 234 beds at the [facility]) Azithromycin 250 MG Oral Tablet 04/07/2020 12:00:00 AM Counts include 234 beds at the [facility]) Levofloxacin 500 MG Oral Tablet [Levaquin] 03/02/2020 12:00:00 AM [facility] ([facility]) Basaglar KwikPen 100 UNIT/ML Subcutaneous Solution Pen -injector 02/11/2020 12:00:00 AM [facility] ([facility]) empagliflozin 10 MG Oral Tablet [Jardiance] 02/05/2020 12:00:00 AM Counts include 234 beds at the [facility]) 24 HR metoprolol succinate 50 MG Extended Release Oral Tablet 02/05/2020 12:00:00 AM [facility] ([facility]) BD Pen Needle Isabel U/F 32G X 4 MM Miscellaneous 01/24/2020 12:00:00 AM Counts include 234 beds at the [facility]) Hydrochlorothiazide 12.5 MG Oral Tablet 01/20/2020 12:00:00 AM [facility] ([facility]) Enalapril Maleate 5 MG Oral Tablet 01/20/2020 12:00:00 AM Counts include 234 beds at the [facility]) Medrol 4 MG Oral Tablet Therapy Pack 12/19/2019 12:00:00 AM Counts include 234 beds at the [facility]) 30 ACTUAT fluticasone furoate 0.1 MG/ACT UAT / vilanterol 0.025 MG/ACTUAT Dry Powder Inhaler [Breo] 12/05/2019 12:00:00 AM [facility] ([facility]) Levofloxacin 500 MG Oral Tablet [Levaquin] 12/05/2019 12:00:[address] [facility] ([facility]) vilazodone hydrochloride 40 MG Oral Tablet [Viibryd] 020 12:00:00 AM [facility] Azithromycin 250 MG Oral Tablet 10/14/2019 12:00:00 AM Counts include 234 beds at the [facility]) Ozempic (0.25 or 0.5 MG/DOSE) 2 MG/1.5ML Subcutaneous Solution Pen-injector 09/26/2019 12:00:00 AM [facility] ([facility]) Lovastatin 20 MG Oral Tablet 09/23/2019 12:00:00 AM [facility] ([facility]) 3 ML liraglutide 6 MG/ML Pen Injector [Victoza] 08/14/2019 12:00:00 AM [facility]) Hydrochlorothiazide 12.5 MG Oral Tablet 07/29/2019 12:00:00 AM [facility]) Enalapril Maleate 5 MG Oral Tablet 07/29/2019 12:00:00 AM [facility]) pantoprazole 40 MG Delayed Release Oral Tablet 07/01/2019 12:00:00 AM [facility]) Enalapril Maleate 5 MG / Hydrochlorothiazide 12.5 MG O ral Tablet 06/24/2019 12:00:[address] [facility]) 3 ML liraglutide 6 MG/ML Pen Injector [Victoza] 03/18/2019 12:00:00 AM [facility] ([facility]) empagliflozin 10 MG Oral Tablet [Jardiance] 02/05/2019 12:00:00 AM Counts include 234 beds at the [facility]) 24 HR metoprolol succinate 50 MG Extended Release Oral Tablet 02/05/2019 12:00:00 AM [facility] ([facility]) Basaglar KwikPen 100UNIT/ML Subcutaneous Solution Pen- injector 01/24/2019 12:00:00 AM [facility] ([facility]) vilazodone hydrochloride 40 MG Oral Tablet [Viibryd] 019 12:00:00 AM [facility]) Lovastatin 20 MG Oral Tablet 09/24/2018 12:00:00 AM [facility] ([facility]) pantoprazole 40 MG Delayed Release Oral Tablet 07/20/2018 12:00:00 AM [facility] ([facility]) calcipotriene 0.59196 MG/MG Topical Ointment [Calcitre ne] 06/28/2018 12:00:00 AM [facility] ([facility]) Clobetasol Propionate 0.0005 MG/MG Topical Ointment 04/02/20 12:00:00 AM [facility] ([facility]) 24 HR Bupropion Hydrochloride 150 MG Extended Release Oral Tablet 02/28/2018 12:00:00 AM [facility] ([facility]) BD Pen Needle Isabel U/F 32G X 4 MM MISC 03/30/2016 12:00:00 AM Counts include 234 beds at the [facility])
[2020-08-05 07:49] LABS: VENOUS BASE EXCESS -6.5 (-2.0-2.0); VENOUS HCO3 21.5 MEQ/L (23.0-27.0); VENOUS O2 SATURATION 71.6 % (60.0-80.0); VENOUS PARTIAL PRESSURE CO2 52.9 mmHg (38.0-50.0); VENOUS PARTIAL PRESSURE O2 43.4 mmHg (30.0-50.0); VENOUS PH 7.226 UNITS (7.330-7.430); VENOUS STANDARD HCO3 18.7 MEQ/L; VENOUS TOTAL CO2 23.1 MEQ/L (24.0-28.0)
--- OUTSIDE RECORDS SUMMARY | 2020-08-05 07:50 | CCD ---
Author Author [facility] Organization [facility] Address Unknown Phone Unavailable Care Team Providers Care [employer] Reader Name Role Phone Gibson, Marina PA Unavailable Unavailable Gibson, Marina PA Unavailable Unavailable Gibson, Marina PA Unavailable Unavailable Gibson, Marina PA Unavailable Unavailable Gibson, Marina PA Unavailable Unavailable Gibson, Marina PA Unavailable Unavailable Gibson, Marina PA Unavailable Unavailable Gibson, Marina PA Unavailable Unavailable Gibson, Marina PA Unavailable Unavailable Gibson, Marina PA Unavailable Unavailable Gibson, Marina PA Unavailable Unavailable Igbson, Marina PA Unavailable Unavailable Gibson, Marina PA [...] is protected by Article 27-F of the [facility] Public Health law. If you continue you may have access to information: Regarding HIV / AIDS; Provided by facilities licensed or operated by the [facility] Office of Mental Health; or Provided by the [facility] Office for People With Developmental Disabilities. If such information is present, then the following [facility] mandated warning applies: This information has [...] law may result in a fine or mcc sentence or both. A general authorization for the release of medical or other information is NOT sufficient authorization for further disc losure. Allergies and Adverse Reactions Type Description Substance Reaction Status Data Source(s ) Drug intolerance trazodone hydrochloride traZODone HCl night sweats Active [facility] ([facility]) Drug intolerance Albuterol Sulfate Powder Albuterol Sulfate trem ors and anxiety. Better with Xopenex Active [facility] Family History Family Member Name Family Member Gender Family Member Status Date o f Status Description Data Source(s) Unknown Female Problem [facility] ([facility]) Encounters Encounter Providers Location Date Indications Data Source(s ) Outpatient<td ID="encounterTypeDescripti onID0">[facility] phone call- NO CHARGE</td><td>Matt Huynh MD</td><td></td><td>07/06/2020</td><td>5:40PM</td><td>11:59PM</td><td></td> Attender: Matt Huynh MD 07/06/2020 05:40:00 PM ES T - 07/06/2020 11:59:00 PM [facility] ([facility]) Outpatient<td ID="encounterTypeDescripti onID1">Transitional Care Management HIGH complexity</td><td>[facility]td[facility]td><td>07/06/2020</td><td>10:00AM</td><td>10:55AM</td><td></td> Attender: Matt Huynh MD [facility] 07/06/2020 10:00:00 AM EST - 07/06/2020 10:55:00 AM EST [facility] ([facility]) Outpatient<td ID="encounterTypeDescripti onID2">[Patient Encounter]</td><td>Matt Huynh MD</td><td></td><td>07/01/2020</td><td>06/27/2020 4:09PM</td><td>06/27/2020 11:59PM</td><td></td> Attender: Matt Huynh MD 0 04:09:00 PM EST - 06/27/2020 11:59:00 PM EST [facility] ([facility]) Outpatient<td ID="encounterTypeDescripti onID3">sick visit</td><td>Matt Huynh MD</td><td>[facility]</td><td>06/27/2020</td><td>10:42AM</td><td>11:15AM</td><td><content ID="encounterDiagnosisID3-0">Generalized Anxiety Disorder</content>, <content ID="encounterDiagnosisID3-1">Panic Disorder Without Agoraphobia</content></td> Attender: Matt Huynh MD [facility] 06/27/2020 10:42:00 AM EST - 06/27/2020 11:15:00 AM EST Panic Disorder Without AgoraphobiaGeneralized Anxiety DisorderPanic Disorder Without AgoraphobiaGeneralized Anxiety Disorder [facility] ([facility]) Panic Disorder Without Agoraphobia Generalized Anxiety Disorder Panic Disorder Without Agoraphobia Generalized Anxiety Disorder Outpatient<td ID="encounterTypeDescripti onID4">Transitional Care Management HIGH complexity</td><td>Matt Huynh MD</td><td>[facility]</td><td>06/11/2020</td><td>4:16PM</td> <td>5:12PM</td><td><content ID="encounterDiagnosisID4-0">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</content>, <content ID="encounterDiagnosisID4- 1">Tachycardia Supraventricular</content>, <content ID="encounterDiagnosisID4- 2">Major Depression Chronic</content>, <content ID="encounterDiagnosisID4- 3">Adjustment Disorder with Anxiety</content></td> Attender: Matt Huynh MD [facility] 06/11/2020 04:16:00 PM EST - 06/11/2020 05:12:00 PM EST Adjustment Disorder with AnxietyAdjustme nt Disorder with AnxietyAdjustment Disorder with Anxiety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Tachycardia SupraventricularTachycardia SupraventricularTachycardia SupraventricularMajor Depression ChronicMajor Depression ChronicMajor Depression Chronic [facility] ([facility]) Adjustment Disorder with Anxiety Adjustment Disorder with Anxiety Adjustment Disorder with Anxiety 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 Tachycardia Supraventricular Tachycardia Supraventricular Tachycardia Supraventricular Major Depression Chronic Major Depression Chronic Major Depression Chronic Outpatient Attender: Alfonso Bradford/Yun/Twin/Heidy welsh 05/28/2020 09:45:00 AM EST [facility] ([facility], ) Outpatient<td ID="encounterTypeDescripti onID5">[facility] phone call- NO CHARGE</td><td>Matt Huynh MD</td><td></td><td>06/11/2020</td><td>05/19/2020 4:00PM</td><td>05/19/2020 11:59PM</td><td></td> Attender: Matt Huynh MD 0 04:00:00 PM EST - 05/19/2020 11:59:00 PM EST [facility]) Outpatient<td ID="encounterTypeDescripti onID6">Transitional Care Management [facility] complexity</td><td>Matt Huynh MD</td><td>[facility]</td><td>05/19/2020</td><td>1:24PM</td> <td>2:47PM</td><td><content ID="encounterDiagnosisID6-0">Lung Neoplasm Adenocarcinoma Metastatic To</content>, <content ID="encounterDiagnosisID6-1"> Diabetes Mellitus Type 2 - Uncomplicated, Controlled By Insulin</content></td> Attender: Matt Huynh MD [facility] 05/19/2020 01:24:00 PM EST - 05/19/2020 02:47:00 [...] Type 2 - Uncomplicated, Controlled By Insulin [facility] ([facility]) Lung Neoplasm Adenocarcinoma Metastatic To Lung [...] Terrell MD 05/05/2020 05:37:00 PM EDT C43.11 [facility] C43.11 Outpatient Attender: Jannet Bradford/Yun/Twin/Garret ndcandy 04/28/2020 02:30:00 PM EDT [facility] ([facility] Outpatient Attender: Jannet Bradford/Yun/Twin/Garret milligan 04/10/2020 09:30:00 AM EDT [facility] ([facility]) Outpatient<td ID="encounterTypeDescripti onID7">[facility] phone call- NO CHARGE</td><td>Matt Huynh MD</td><td></td><td>05/19/2020</td><td>04/07/2020 11:49AM</td><td>04/07/2020 11:59PM</td><td></td> Attender: Matt Huynh MD 0 11:49:00 AM EDT - 04/07/2020 11:59:00 PM EDT [facility] ([facility]) Outpatient<td ID="encounterTypeDescripti onID8">followup</td><td>Marina Gibson RPA</td><td>[facility]</td><td>04/07/2020</td><td>8:53AM</td><td>9:33AM</td><td><content ID="encounterDiagnosisID8-0">Pneumonia</content></td> Attender: Marina KIM [facility] 04/07/2020 08:53:00 A M EDT - 04/07/2020 09:33:00 AM EDT PneumoniaPneumoniaPneumoniaPneumoniaPneumoniaPneumonia Pneumonia [facility] ([facility]) Pneumonia Pneumonia Pneumonia Pneumonia Pneumonia Pneumonia Pneumonia Outpatient Attender: Marina KIM 04/02/2020 02: 00:00 PM EDT F/U RIGHT SIDED PLEURAL EFFUSION [facility] F/U RIGHT SIDED PLEURAL EFFUSION Outpatient Attender: Marina KIM 03/31/2020 04:31:00 PM EDT PNEUMONIA [facility] PNEUMONIA Outpatient<td ID="encounterTypeDescripti onID9">[Patient Encounter]</td><td>Marina Gibson RPA</td><td></td><td>04/01/2020</td><td>03/02/2020 4:11PM</td><td>03/02/2020 11:59PM</td><td></td> Attender: Marina KIM 03/02/2020 04:11:00 PM EDT - 03/02/2020 11:59:00 PM EDT [facility] ([facility]) Outpatient<td ID="encounterTypeDescripti onID10">sick visit</td><td>Marina Gibson RPA</td><td>[facility]</td><td>03/02/2020</td><td>3:29PM</td><td>4:03PM</td><td><content ID="nvcjyvdouYtyhezmgeAF39-2">Pneumonia</content></td> Attender: Marina KIM [facility] 03/02/2020 03:29:00 P M EDT - 03/02/2020 04:03:00 PM EDT PneumoniaPneumoniaPneumoniaPneumoniaPneumoniaPneumoniaPneumoniaPneumonia [facility] ([facility]) Pneumonia Pneumonia Pneumonia Pneumonia Pneumonia Pneumonia Pneumonia Pneumonia Outpatient Attender: Marina KIM 03/02/2020 01:22:00 PM EDT R05 [facility] R05 Outpatient<td ID="encounterTypeDescripti onID12">sick visit</td><td>Marina Gibson RPA</td><td>[facility]</td><td>12/19/2019</td><td>2:02PM</td><td>3:09PM</td><td><content ID="ailxooaluWandftjuyMZ03-6">Shoulder Strain Deltoid Muscle</content>, <content ID="bygqsbczzSkgvkdvmhPM45-4">Pneumonia</content></td> Attender: Marina KIM [facility] 12/19/2019 02:02:00 P M EDT - 12/19/2019 03:09:00 PM EDT PneumoniaShoulder Strain Deltoid MuscleP neumoniaShoulder Strain Deltoid MusclePneumoniaShoulder Strain Deltoid MusclePneumoniaShoulder Strain Deltoid MusclePneumoniaShoulder Strain Deltoid MusclePneumoniaShoulder Strain Deltoid MusclePneumoniaShoulder Strain Deltoid MusclePneumoniaShoulder Strain Deltoid MusclePneumoniaShoulder Strain Deltoid Muscle [facility] ([facility]) Pneumonia Shoulder Strain Deltoid Muscle Pneumonia [...] AM EDT - 12/19/2019 11:59:00 PM EDT [facility] ([facility]) Outpatient Attender: Marina KIM 12/05/2019 09:36:00 AM EDT [facility] COUGH Outpatient<td ID="encounterTypeDescripti onID13">incident to previous visit- </td><td>Marina Gibson RPA</td><td>[facility]</td><td>12/05/2019</td><td>8:12AM</td><td>9:16AM</td><td><content ID="csllgbwvvNyjawcgnlNT99-1">Pneumonia Right Middle Zone</content>, <content ID="luukvuvprTnhzuptmpDD29-8">Diabetes Mellitus Type 2 - Uncomplicated, Uncontrolled</content>, <content ID="dsdmpfgoxScwbmhnddXD68-2">Major Depression Chronic</content></td> Attender: Marina KIM [facility] 12/05/2019 08:12:00 AM EDT - [...] Mellitus Type 2 - Uncomplicated, Uncontrolled [facility] ([facility]) Pneumonia Right Middle Zone Pneumonia Right [...] , Uncontrolled Outpatient<td ID="encounterTypeDescripti onID14">sick visit</td><td>Marina Gibson [facility]</td><td>[facility]</td><td>10/14/2019</td><td>1:28PM</td><td>1:58PM</td><td><content ID="veiftqlsbZsqxyahcyZP32-3">Acute Bronchitis</content></td> Attender: Marina KIM [facility] 10/14/2019 01:28:00 P M EDT - 10/14/2019 01:58:00 PM EDT Acute BronchitisAcute BronchitisAcute Br onchitisAcute BronchitisAcute BronchitisAcute BronchitisAcute BronchitisAcute BronchitisAcute BronchitisAcute BronchitisAcute Bronchitis [facility] ([facility]) Acute Bronchitis Acute Bronchitis Acute Bronchitis Acute Bronchitis Acute Bronchitis Acute Bronchitis Acute Bronchitis Acute Bronchitis Acute Bronchitis Acute Bronchitis Acute Bronchitis Outpatient<td ID="encounterTypeDescripti onID15">[Patient Encounter]</td><td>Matt Huynh MD</td><td></td><td>09/23/2019</td><td>07/01/2019 4:54PM</td><td>07/01/2019 11:59PM</td><td></td> Attender: Matt Huynh MD 0 04:54:00 PM EDT - 07/01/2019 11:59:00 PM EST [facility] ([facility]) Outpatient Attender: Matt uHynh MD 07/11/2019 04:51:0 0 PM EST SCREENING [facility] SCREENING Outpatient<td ID="encounterTypeDescripti onID13">ANNUAL PE-followup exam/30</td><td>Matt Huynh MD</td><td>[facility]</td><td>07/01/2019</td><td>10:12AM</td><td>11:19AM</td><td><content ID="codajuomnKyepnrezlYF41-0">Routine History and Physical Senior Citizen (65-80 Yrs)</content>, <content ID="hkdmsxiggItdicptnpVV90-5">Diabetes Mellitus Type 2 - Uncomplicated, Uncontrolled</content>, <content ID="nnvmbrtgiXpfukxowmRM06- 2">Essential Hypertension</content>, <content ID="rqatxbvfaMhitsqibpRO39-6"> Obesity Morbid Due To Excess Calories</content>, <content ID="ddravcminIglifvoanQP21-4">Major Depression Chronic</content></td> Attender: Matt Huynh MD [facility] 07/01/2019 10:12:00 A M EST [...] Depression ChronicMajor Depression ChronicMajor Depression ChronicMajor Depression [facility] ([facility]) Obesity Morbid Due To Excess Calories [...] , Uncontrolled Routine History and Physical Senior [facility] marino (65-80 Yrs) Obesity Morbid Due To Excess Calories Essential Hypertension Diabetes Mellitus Type 2 - Uncomplicated , Uncontrolled Routine History and Physical Senior [facility] marino (65-80 Yrs) Major Depression Chronic Major Depression Chronic Major Depression Chronic Major Depression Chronic Major Depression Chronic Major Depression Chronic Major Depression Chronic Major Depression Chronic Major Depression Chronic Major Depression Chronic Major Depression Chronic Outpatient<td ID="encounterTypeDescripti onID14">[Patient Encounter]</td><td>Matt Huynh MD</td><td></td><td>07/01/2019</td><td>12/24/2018 8:40AM</td><td>12/24/2018 11:59PM</td><td></td> Attender: Matt Huynh MD 9 08:40:00 AM EST - 12/24/2018 11:59:00 PM EDT [facility] ([facility]) Immunizations Vaccine Date Status Description Data Source(s) Pneumococcal conjugate PCV 13 07/01/2019 11:25:00 AM EST completed P [id number] 1 07/01/2019 Right Deltoid Complete (Administered) [facility] ([facility]) IIV3. This is one of two codes replacing CVX 15, which is being retired. 07/01/2019 11:25:00 AM EST completed Influenza, seasonal, injectable 5 07/01/2019 Left Deltoid Complete (Administered) [facility]) Medications Medication Brand Name Start Date Product Form Dose Route Admi nistrative Instructions Pharmacy Instructions Status Indications Reaction Description Data Source(s) Clobetasol Propionate 0.0005 MG/MG Topic al Ointment Clobetasol Propionate 0.05% External Ointment Clobetasol Propionate 0.05% External Ointment 07/01/20 12:00:00 AM EST 1 active clobetasol propionate 0.0005 MG/MG Topical Ointment [facility] ([facility]) calcipotriene 0.84693 MG/MG Topical Oint ment [Calcitrene] Calcitrene 0.005% External Ointment Calcitrene 0.005% External Ointment 07/01/2020 12:00:0 0 AM EST 1 active calcipotriene 0.0 0005 MG/MG Topical Ointment [Calcitrene] [facility] ([facility]) doxycycline hyclate 100 MG Oral Tablet Doxycycline Hyc late 100 MG Oral Tablet Doxycycline Hyclate 100 MG Oral Tablet 07/01/2020 12:00:00 AM EST 2 active doxycycline hyclate 100 MG Oral Tablet [facility] ([facility]) cefdinir 300 MG Oral Capsule Cefdinir 300 MG Oral Caps ule Cefdinir 300 MG Oral Capsule 07/01/2020 12:00:00 AM EST 1 active cefdinir 300 MG Oral Capsule [facility]) Prednisone 10 MG Oral Tablet predniSONE 10 MG Oral Tab let predniSONE 10 MG Oral Tablet 07/01/2020 12:00:00 AM EST active prednisone 10 MG Oral Tablet [facility]) Lorazepam 0.5 MG Oral Tablet LORazepam 0.5 MG Oral Tab let LORazepam 0.5 MG Oral Tablet 06/27/2020 12:00:00 AM EST active lorazepam 0.5 MG Oral Tablet [facility] ([facility]) Trazodone Hydrochloride 50 MG Oral Tablet traZODone HC l 50 MG Oral Tablet traZODone HCl 50 MG Oral Tablet 06/27/2020 12:00:00 AM EST 1 aborted trazodone hydrochloride 50 MG Oral Tablet [facility] ([facility]) Levalbuterol 0.21 MG/ML Inhalant Solutio n Levalbuterol HCl 0.63 MG/3ML Inhalation Nebulization solution Levalbuterol HCl 0.63 MG/3ML Inhalation Nebulization solution 06/20/2020 12:00:00 AM EST 1 active levalbuterol 0.21 MG/ML Inhalation Solution [facility] ([facility]) Accu-Chek FastClix Lancets Miscellaneous Accu-Chek Fas tClix Lancets Miscellaneous 06/19/2020 12:00:00 AM EST acti ve Accu-Chek FastClix Lancets [facility] ([facility]) OneTouch Verio In Vitro Strip OneTouch Verio In Vitro Strip 06/19/2020 12:00:00 AM EST aborted [facility] OneTouch Delica Lancets 33G Miscellaneous OneTouch Del ica Lancets 33G [facility] 06/19/2020 12:00:00 AM EST abor evangelina OneTouch Delica Lancets 33G [facility] ([facility]) Accu-Chek Guide In Vitro Strip Accu-Chek Guide In Vitro Stri p 06/19/2020 12:00:00 AM EST active Accu-Shannan k Guide [facility] ([facility]) OneTouch Verio Flex System w/Device Kit OneTouch Verio Flex System w/Device Kit 06/19/2020 12:00:00 AM EST aborted OneTouch Verio Flex System [facility] ([facility]) Accu-Chek Guide w/Device Kit Accu-Chek Guide w/Device Kit 12:00:00 AM EST active Accu-Chek Guide [facility] ([facility]) Lorazepam 0.5 MG Oral Tablet LORazepam 0.5 MG Oral Tab let LORazepam 0.5 MG Oral Tablet 06/11/2020 12:00:00 AM EST aborted lorazepam 0.5 MG Oral Tablet [facility] ([facility]) 200 ACTUAT Albuterol 0.09 MG/ACTUAT Metered Dose Inhal er [Ventolin] Ventolin HFA 05/28/2020 12:00:00 AM EST RESPIRATORY active [facility] ([facility] ) Levalbuterol 0.21 MG/ML Inhalant Solution Levalbuterol HCL active [facility]) Prednisone 10 MG Oral Tablet Prednisone 04/28/2020 12:00:00 AM EDT active [facility] ([facility], ) Prednisone 20 MG Oral Tablet Prednisone 04/23/2020 12:00:00 AM EDT ORAL completed [facility] ([facility], ) Prednisone 10 MG Oral Tablet Prednisone 04/13/2020 12:00:00 AM EDT ORAL completed [facility] ([facility], ) Levalbuterol 0.21 MG/ML Inhalant Solution Levalbuterol HCL 04/10/2020 12:00:00 AM EDT active [facility] ([facility] ) Prednisone 20 MG Oral Tablet predniSONE 20 MG Oral Tab let predniSONE 20 MG Oral Tablet 04/07/2020 12:00:00 AM EDT 2 aborted prednisone 20 MG Oral Tablet [facility]) Azithromycin 250 MG Oral Tablet Azithromycin 250 MG Oral Tab let 04/07/2020 12:00:00 AM EDT aborted azithro mycin 250 MG Oral Tablet [facility] ([facility]) 30 ACTUAT fluticasone furoate 0.1 MG/ACT UAT / vilanterol 0.025 MG/ACTUAT Dry Powder Inhaler [Breo] Breo Ellipta 100-25 MCG/INH Inhalation Aerosol Powder Breath Activated Breo Ellipta 100-25 MCG/INH Inhalation A erosol Powder Breath Activated 03/02/2020 12:00:00 AM EDT 1 complete d 30 ACTUAT fluticasone furoate 0.1 MG/ACTUAT / vilanterol 0.025 MG/ACTUAT Dry Powder Inhaler [Breo] [facility] ([facility]) Levofloxacin 500 MG Oral Tablet [Levaquin] Levaquin 50 0 MG Oral Tablet Levaquin 500 MG Oral Tablet 03/02/2020 12:00:00 AM EDT 1 aborted levofloxacin 500 MG Oral Tablet [Levaquin] [facility]) Basaglar KwikPen 100 UNIT/ML Subcutaneous Solution Pen -injector Basaglar KwikPen 100 UNIT/ML Subcutaneous Solution Pen-injector 02/11/2020 12:00:00 AM EDT active Sensor 3 ML insulin glargine 100 UNT/ML Pen Injector [Basaglar] [facility]) 24 HR metoprolol succinate 50 MG Extende d Release Oral Tablet Metoprolol Succinate ER 50 MG Oral Tablet Extended Release 24 Hour Metoprolol Succinate ER 50 MG Oral Tablet Extended Release 24 Hour 02/05/2020 12:00:00 AM EDT 1 active 24 HR metoprolol succinate 50 MG Extended Release Oral Tablet [facility] ([facility]) empagliflozin 10 MG Oral Tablet [Jardiance] Jardiance 10 MG Oral Tablet Jardiance 10 MG Oral Tablet 02/05/2020 12:00:00 AM EDT 1 active empagliflozin 10 MG Oral Tablet [Jardiance] [facility] ([facility]) BD Pen Needle Isabel U/F 32G X 4 MM Miscellaneous BD Pen Needle Isabel U/F 32G X 4 MM Miscellaneous 01/24/2020 12:00:00 AM EDT a ctive BD Pen Needle Isabel U/F [facility] ([facility]) Enalapril Maleate 5 MG Oral Tablet Enalapril Maleate 5 MG Or al Tablet 01/20/2020 12:00:00 AM EDT 1 aborted enalap ril maleate 5 MG Oral Tablet [facility] ([facility]) Hydrochlorothiazide 12.5 MG Oral Tablet hydroCHLOROthi azide 12.5 MG Oral Tablet hydroCHLOROthiazide 12.5 MG Oral Tablet 01/20/2020 12:00:00 AM EDT 1 aborted hydrochlorothiazide 12.5 MG Oral Tablet [facility] ([facility]) Medrol 4 MG Oral Tablet Therapy Pack Medrol 4 MG Oral Tablet Therapy Pack 12/19/2019 12:00:00 AM EDT aborted {21 (methylprednisolone 4 MG Oral Tablet [Medrol]) } Pack [Medrol Dosepak] [facility] ([facility]) 30 ACTUAT fluticasone furoate 0.1 MG/ACT UAT / vilanterol 0.025 MG/ACTUAT Dry Powder Inhaler [Breo] Breo Ellipta 100-25 MCG/INH Inhalation Aerosol Powder Breath Activated Breo Ellipta 100-25 MCG/INH Inhalation A erosol Powder Breath Activated 12/05/2019 12:00:00 AM EDT 1 complete d 30 ACTUAT fluticasone furoate 0.1 MG/ACTUAT / vilanterol 0.025 MG/ACTUAT Dry Powder Inhaler [Breo] [facility] ([facility]) Levofloxacin 500 MG Oral Tablet [Levaquin] Levaquin 50 0 MG Oral Tablet Levaquin 500 MG Oral Tablet 12/05/2019 12:00:00 AM EDT 1 aborted levofloxacin 500 MG Oral Tablet [Levaquin] [facility]) vilazodone hydrochloride 40 MG Oral Tablet [Viibryd] V iibryd 40 MG Oral Tablet Viibryd 40 MG Oral Tablet 11/20/2019 12:00:00 AM EDT 1 active vilazodone hydrochloride 40 MG Oral Tablet [Viibryd] [facility]) Azithromycin 250 MG Oral Tablet Azithromycin 250 MG Oral Tab let 10/14/2019 12:00:00 AM EDT aborted azithro mycin 250 MG Oral Tablet [facility] ([facility]) Ozempic (0.25 or 0.5 MG/DOSE) 2 MG/1.5ML Subcutaneous Solution Pen-injector Ozempic (0.25 or 0.5 MG/DOSE) 2 MG/1.5ML Subcutaneous Solution Pen-injector 09/26/2019 12:00:00 AM EDT active 0.25 MG, 0.5 MG Dose 1.5 ML semaglutide 1.34 MG/ML Pen Injector [Ozempic] [facility] ([facility]) Lovastatin 20 MG Oral Tablet Lovastatin 20 MG Oral Tablet 12:00:00 AM EDT 1 active lovastatin 20 MG Oral Tablet [facility] ([facility]) 3 ML liraglutide 6 MG/ML Pen Injector [V ictoza] Victoza 18 MG/3ML Subcutaneous Solution Pen-injector Victoza 18 MG/3ML Subcutaneous Solution Pen-injector 08/14/2019 12:00:00 AM EST aborted 3 ML liraglutide 6 MG/ML Pen Injector [Victoza] [facility] ([facility]) Hydrochlorothiazide 12.5 MG Oral Tablet hydroCHLOROthi azide 12.5 MG Oral Tablet hydroCHLOROthiazide 12.5 MG Oral Tablet 07/29/2019 12:00:00 AM EST 1 aborted hydrochlorothiazide 12.5 MG Oral Tablet [facility]) Enalapril Maleate 5 MG Oral Tablet Enalapril Maleate 5 MG Or al Tablet 07/29/2019 12:00:00 AM EST 1 aborted enalap ril maleate 5 MG Oral Tablet [facility] ([facility]) pantoprazole 40 MG Delayed Release Oral Tablet Pantoprazole Sodium 40MG Oral Tablet Delayed Release Pantoprazole Sodium 40MG Oral Tablet Delayed Release 07/01/2019 12:00:00 AM EST 1 active pantoprazole 40 MG Delayed Release Oral Tablet [facility] ([facility]) Enalapril Maleate 5 MG / Hydrochlorothia zide 12.5 MG Oral Tablet Enalapril- hydroCHLOROthiazide 5-12.5MG Oral Tablet Enalapril-hydroCHLOROthiazide 5-12.5MG Oral Tablet 06/24/2019 12:00:00 AM EST 1 aborte d enalapril maleate 5 MG / hydrochlorothiazide 12.5 MG Oral Tablet [facility] ([facility]) 3 ML liraglutide 6 MG/ML Pen Injector [V ictoza] Victoza 18MG/3ML Subcutaneous Solution Pen-injector Victoza 18MG/3ML Subcutaneous Solution Pen-injector 03/18/2019 12:00:00 AM EDT aborted 3 ML liraglutide 6 MG/ML Pen Injector [Victoza] FERTILE ([facility]) empagliflozin 10 MG Oral Tablet [Jardiance] Jardiance 10MG Oral Tablet Jardiance 10MG Oral Tablet 02/05/2019 12:00:00 AM EDT 1 aborted empagliflozin 10 MG Oral Tablet [Jardiance] FERTILE ([facility]) 24 HR metoprolol succinate 50 MG Extende d Release Oral Tablet Metoprolol Succinate ER 50MG Oral Tablet Extended Release 24 Hour Metoprolol Succinate ER 50MG Oral Tablet Extended Release 24 Hour 02/05/2019 12:00:00 AM EDT 1 aborted 24 HR metoprolol succinate 50 MG Extended Release Oral Tablet FERTILE ([facility]) Basaglar KwikPen 100UNIT/ML Subcutaneous Solution Pen- injector Basaglar KwikPen 100UNIT/ML Subcutaneous Solution Pen-injector 01/24/2019 12:00:00 AM EDT aborted Sensor 3 ML insulin glarg ine 100 UNT/ML Pen Injector [Basaglar] FERTILE ([facility]) vilazodone hydrochloride 40 MG Oral Tablet [Viibryd] V iibryd 40MG Oral Tablet Viibryd 40MG Oral Tablet 12/04/2018 12:00:00 AM EDT 1 aborted vilazodone hydrochloride 40 MG Oral Tablet [Viibryd] FERTILE ([facility]) Lovastatin 20 MG Oral Tablet Lovastatin 20MG Oral Tabl et Lovastatin 20MG Oral Tablet 09/24/2018 12:00:00 AM EDT 1 aborted lovastatin 20 MG Oral Tablet FERTILE ([facility]) pantoprazole 40 MG Delayed Release Oral Tablet Pantoprazole Sodium 40MG Oral Tablet Delayed Release Pantoprazole Sodium 40MG Oral Tablet Delayed Release 07/20/2018 12:00:00 AM EST 1 aborted pantoprazole 40 MG Delayed Release Oral Tablet FERTILE ([facility]) calcipotriene 0.32646 MG/MG Topical Oint ment [Calcitrene] Calcitrene 0.005% External Ointment Calcitrene 0.005% External Ointment 06/28/2018 12:00:0 0 AM EST 1 aborted calcipot riene 0.31209 MG/MG Topical Ointment [Calcitrene] FERTILE ([facility]) Clobetasol Propionate 0.0005 MG/MG Topic al Ointment Clobetasol Propionate 0.05% EX OINT Clobetasol Propionate 0.05% EX OINT 04/02/2018 12:00:00 AM EDT 1 aborted clobetasol propionate 0.0005 MG/MG Topical Ointment FERTILE ([facility]) 24 HR Bupropion Hydrochloride 150 MG Ext ended Release Oral Tablet buPROPion HCl ER (XL) 150 MG OR TB24 buPROPion HCl ER (XL) 150 MG OR TB24 02/28/2018 12:00: 00 AM EDT aborted 24 HR bu propion hydrochloride 150 MG Extended Release Oral Tablet FERTILE ([facility]) BD Pen Needle Isabel U/F 32G X 4 MM MISC BD Pen Needle Isabel U/ F 32G X 4 MM MISC 03/30/2016 12:00:00 AM EDT aborted BD Pen Needle Isabel U/F FERTILE ([facility]) Insurance Providers Payer name Policy type / Coverage type Policy ID Covered libertarian ID Covered libertarian's relationship to hernandez Policy Hernandez Plan Information [facility] [id number] MEDICARE [id number] [facility] [id number] S [id number] MEDICARE [id number] SP [id number] [facility] [id number] 2 [id number] SELF PAY ONLY [id number] SP [id number] [employer] [place] Other 0 Self 0 [employer] [place] Other 0 Self 0 [employer] [place] Other 0 Self 0 [employer] [place] Other 0 Self 0 [employer] [place] Other 0 Self 0 [employer] [place] Other 0 Self 0 [employer] Dependent BLUE CROSS OUT OF STATE [id number] Spouse [id number] HMO BLUE [id number] Patient [id number] [employer] Dependent BC/BS PPO/EPO (28) [id number] Problems, Conditions, and Diagnoses Code Display Name Description Problem Type Effective Dates Data Source(s) 300.01 Anxiety Disorder Due To Gen Medical Cond ition, Panic Attacks Anxiety Disorder Due To Gen Medical Condition, Panic Attacks Problem 1 08/28/2019 12:00:00 AM [facility] [id number] Anxiety Disord Due To Gen Medical Cond, Generalized Anxiety Anxiety Disord Due To Gen Medical Cond, Generalized Anxiety Problem 12:00:00 AM Yidio ([facility]) 300.01 Anxiety Disorder Due To Gen Medical Cond ition, Panic Attacks Anxiety Disorder Due To Gen Medical Condition, Panic Attacks Problem 1 08/28/2019 12:00:00 AM [facility] [id number] Anxiety Disord Due To Gen Medical Cond, Generalized Anxiety Anxiety Disord Due To Gen Medical Cond, Generalized Anxiety Problem 12:00:00 AM Yidio ([facility]) [id number] Non-small cell lung cancer (disorder) Susana ng Neoplasm Malignant (Non- small Cell) Stage IV Problem 05/30/2020 12:00:00 AM Yidio ([facility]) [id number] Non-small cell lung cancer (disorder) Susana ng Neoplasm Malignant (Non- small Cell) Stage IV Problem 05/30/2020 12:00:00 AM EST MYLES ([facility]) [id number] Non-small cell lung cancer (disorder) Susana ng Neoplasm Malignant (Non- small Cell) Stage IV Problem 05/30/2020 12:00:00 AM EST MYLES ([facility]) [id number] Non-small cell lung cancer (disorder) Susana ng Neoplasm Malignant (Non- small Cell) Stage IV Problem 05/30/2020 12:00:00 AM EST MYLES ([facility]) [id number] Non-small cell lung cancer (disorder) Susana ng Neoplasm Malignant (Non- small Cell) Stage IV Problem 05/30/2020 12:00:00 AM Yidio ([facility]) [id number] Obesity Morbid Due To Excess Calories Ob esity Morbid Due To Excess Calories Problem 07/01/2019 12:00:00 AM Yidio ([facility]) [id number] Obesity Morbid Due To Excess Calories Ob esity Morbid Due To Excess Calories Problem 07/01/2019 12:00:00 [facility] [id number] Obesity Morbid Due To Excess Calories Ob esity Morbid Due To Excess Calories Problem 07/01/2019 12:00:00 AM Yidio ([facility]) [id number] Obesity Morbid Due To Excess Calories Ob esity Morbid Due To Excess Calories Problem 07/01/2019 12:00:00 AM Yidio ([facility]) [id number] Obesity Morbid Due To Excess Calories Ob esity Morbid Due To Excess Calories Problem 07/01/2019 12:00:00 AM [facility] [id number] Obesity Morbid Due To Excess Calories Ob esity Morbid Due To Excess Calories Problem 07/01/2019 12:00:00 AM Yidio ([facility]) [id number] Obesity Morbid Due To Excess Calories Ob esity Morbid Due To Excess Calories Problem 07/01/2019 12:00:00 AM [facility] [id number] Obesity Morbid Due To Excess Calories Ob esity Morbid Due To Excess Calories Problem 07/01/2019 12:00:00 AM [facility] 278.01 Obesity Morbid Due To Excess Calories Ob esity Morbid Due To Excess Calories Problem 07/01/2019 12:00:00 AM Yidio ([facility]) 278.01 Obesity Morbid Due To Excess Calories Ob esity Morbid Due To Excess Calories Problem 07/01/2019 12:00:00 AM [facility] ([facility]) 278.01 Obesity Morbid Due To Excess Calories Ob esity Morbid Due To Excess Calories Problem 07/01/2019 12:00:00 AM [facility] ([facility]) 278.01 Obesity Morbid Due To Excess Calories Ob esity Morbid Due To Excess Calories Problem 07/01/2019 12:00:00 AM [facility] ([facility]) Surgeries/Procedures Procedure Description Date Indications Data Source(s) no charge procedure no charge procedure 06/11/2020 12:00:00 AM [facility] ([facility]) no charge procedure no charge procedure 06/11/2020 12:00:00 AM [facility] ([facility]) Medication Reconciliation Incentive Medication Reconciliatio n Incentive 06/11/2020 12:00:00 AM [facility] ([facility]) Venipuncture (routine) Venipuncture (routine) 05/22/2020 12:00:00 A M [facility] ([facility]) CBC CBC 05/22/2020 12:00:00 AM [facility] ([facility]) BMP-Basic Metabolic Profile BMP-Basic Metabolic Profile 05/10 12:00:00 AM [facility] ([facility]) no charge procedure no charge procedure 05/19/2020 12:00:00 AM [facility] ([facility]) Medication Reconciliation Incentive Medication Reconciliatio n Incentive 05/19/2020 12:00:00 AM [facility]) Bronchoscopy W/Brushing Or Protected Brushings 12:00:00 AM EDT [facility], ) Bronchoscopy W/Bronchial Alveolar Lavage 04/22/2020 12 :00:00 AM EDT [facility], ) Bronchoscopy W/Biopsy 04/22/2020 12:00:00 AM EDT [facility], ) Bronchoscopy, W/Transbronchial Needle Aspiration Biopsy Addl Lobe 04/22/2020 12:00:00 AM EDT [facility] With Endobronchial Ultrasound Guided 04/22/2020 12:00: 00 AM EDT JOESPH ([facility], ) Airway Inhalation Treatment 04/10/2020 12:00:00 AM EDT JOESPH ([facility], ) -collection of capillary blood (fingerstick, heel ) -c ollection of capillary blood (fingerstick, heel ) 12/05/2019 12:00:00 AM EDSaulo COLIN ([facility]) HgbA1C HgbA1C 12/05/2019 12:00:00 AM EDT Minesh CROSS ([facility]) Venipuncture (routine) Venipuncture (routine) 07/01/2019 12:00:00 A M KAJAL BUENO ([facility]) HgbA1C HgbA1C 07/01/2019 12:00:00 AM [facility] Mircro Alb urine Mircro Alb urine 07/01/2019 12:00:00 AM [facility]) CREATININE OTHER SOURCE Creatinine: URINE 07/01/2019 12:00:00 AM ES T MYLES ([facility]) CBC CBC 07/01/2019 12:00:00 AM KAJAL [facility] ([facility]) CMP-Complete Metabolic Profile CMP-Complete Metabolic Profil e 07/01/2019 12:00:00 AM [facility] ([facility]) Fasting Lipid Profile Fasting Lipid Profile 07/01/2019 12:00:00 AM [facility] ([facility]) Urinalysis-Lab processed Urinalysis-Lab processed 07/01/2019 12:00: 00 AM [facility]) FLUZONE/ multi-dose ( 6mos -older) FLUZONE/ multi-dose ( 6mo s -older) 07/01/2019 12:00:00 AM [facility] ([facility]) IMADM PRQ ID SUBQ/IM NJXS 1 VACCINE ADMINISTRATION 1-IMMUNIZ ATION(adult) 07/01/2019 12:00:00 AM [facility]) PREVNAR 13 -pneumococcal /otits media vaccine PREVNAR 13 -pneumococcal /otits media vaccine 07/01/2019 12:00:00 AM [facility] ([facility]) IMADM PRQ ID SUBQ/IM NJXS EA VACCINE ADMINISTRATION 2+ IMMUN IZATION (adult) 07/01/2019 12:00:00 AM EST MYLES ([facility]) Brief Emotional Behavior Assessment (Distinct Seperate service-same day) Brief Emotional Behavior Assessment (Distinct Seperate service-same day) 07/01/2019 12:00:00 AM EST MYLES ([facility]) Results ID Date Data Source [id number] 06/30/2020 10:41:00 AM EST [facility] Name Value Range Interpretation Code Description Data Kylah rce(s) Supporting Document(s) SARS coronavirus 2 RNA [Presence] in Res piratory specimen by GARTH with probe detection [facility] This lab was ordered by [facility] a nd reported by [facility] [employer]. ID Date Data Source [id number] 05/22/2020 08:22:00 AM EST MYLES ([facility]) Name Value Range Interpretation Code Description Data Kylah rce(s) Supporting Document(s) GRAN% 73.9 % GRAN% MYLES ([facility]) Note: Responsible Observer: KM HCT 37.1 % HCT MYLES ([facility]) Note: Responsible Observer: KM GRAN# 4.2 /mm3 GRAN# MYLES ([facility]) Note: Responsible Observer: KM LY# 1.0 /mm3 Below low normal LY# MYLES ([facility]) Note: Responsible Observer: KM HGB 12.3 g/dl HGB MYLES ([facility]) Note: Responsible Observer: KM MCH 27.5 pg MCH MYLES ([facility]) Note: Responsible Observer: KM LY% 17.3 % Below low normal LY% MYLES ([facility]) Note: Responsible Observer: KM MID# 0.5 /mm3 MID# MYLES ([facility]) Note: Responsible Observer: KM MCV 82.8 um3 MCV MYLES ([facility]) Note: Responsible Observer: KM MCHC 33.2 G/DL MCHC MYLES ([facility]) Note: Responsible Observer: KM MID% 8.7 % Above high normal MID% MYLES ([facility]) Note: Responsible Observer: KM MPV 10.8 um3 MPV MYLES ([facility]) Note: Responsible Observer: KM WBC 5.6 /mm3 WBC FERTILE ([facility]) Note: Responsible Observer: KM RBC 4.48 /mm3 RBC FERTILE ([facility]) Note: Responsible Observer: KM PLT 228 /mm3 PLT FERTILE ([facility]) Note: Responsible Observer: KM RDW 18.6 % Above high normal RDW FERTILE ([facility]) Note: Responsible Observer: KM ID Date Data Source [id number] 05/22/2020 08:22:00 AM EST FERTILE ([facility]) Name Value Range Interpretation Code Description Data Kylah rce(s) Supporting Document(s) Urea nitrogen [Moles/volume] in Blood 26 mg/dl Abo ve high normal Urea Nitrogen FERTILE ([facility]) Note: Responsible Observer: KM Calcium [Moles/volume] in Urine collected for unspecified durati on 8.7 mg/dl Calcium FERTILE ([facility]) Note: Responsible Observer: KM Creatinine [Moles/volume] in Vitreous fluid 1 mg/dl Creatinine FERTILE ([facility]) Note: Responsible Observer: KM Chloride [Moles/volume] in Serum, Plasma or Blood 102 mmol/L Chloride FERTILE ([facility]) Note: Responsible Observer: KM CO2 27 mmol/L CO2 FERTILE ([facility]) Note: Responsible Observer: KM EGFR - Non AF AM 55 N/A Above high normal EGFR - Non A F AM FERTILE ([facility]) Note: Responsible Observer: KM EGFR - AfricanAm > 60 N/A EGFR - AfricanAm [facility] Note: Responsible Observer: KM Potassium [Mass/volume] in Blood 3.6 mmol/L Pot assium FERTILE ([facility]) Note: Responsible Observer: KM Glucose [Mass/volume] in Urine collected for unspecified duratio n 148 mg/dl Above high normal Glucose FERTILE ([facility]) Note: Responsible Observer: KM Sodium [Moles/volume] in Serum, Plasma or Blood 136 mmol/L Sodium FERTILE ([facility]) Note: Responsible Observer: KM ID Date Data Source [id number] 05/12/2020 02:54:00 PM EST MEDENT ([facility], ) Name Value Range Interpretation Code Description Data Kylah rce(s) Supporting Document(s) ABG pH (Arterial) 7.419 units 7.350-7.450 Normal (applie s to non-numeric results) [facility]) ABG Total Co2 24.7 meq/L 23.0-31.0 Normal (applies to non-numeric re sults) [facility]) ABG Partial Pressure O2 70.7 mmHg 75.0-100.0 Below low normal [facility]) ABG Partial Pressure Co2 37.3 mmHg 35.0-45.0 Normal (applies to non-numeric results) [facility]) ABG Hco3 23.6 meq/L 22.0-26.0 Normal (applies to non-numeric resul ts) [facility]) ABG Standard Hco3 24.0 meq/L 22.0-26.0 Normal (applies to non- numeric results) [facility]) ABG Base Excess -0.6 Normal (applies to non-numeric results) [facility]) ABG Site Laboratory test result Normal (applies to non-n umeric results) [facility]) ABG O2 Saturation 94.7 % 95.0-99.0 Below low normal M [facility]) ID Date Data Source [id number] 05/06/2020 08:03:00 AM EDT [facility] [address] [id number] [phone] NAME SEX PT STATUS ACCOUNT NUMBER [facility]ODY [facility] REG REF [id number] ORDERING PHYSICIAN LOCATION MEDICAL RECORD NO. Jannet Terrell MD RAD [id number] ATTENDING PHYSICIAN DATE OF DATE OF EXAM/TIME [...] DO on 05/06/20805 Date Time CC: Eddi Nuno DO; Matt Huynh MD Techn: BAIAB Trans Dt/Tm: Trans by: DT Prt Dt/Tm: 7701-7049: Total DLP = 0.00 mGy-cm Fluoroscopy Time (in secs): Name Value Range Interpretation Code Description Data Kylah rce(s) Supporting Document(s) ID Date Data Source [id number] 04/22/2020 11:49:00 AM EDT [facility] ) Name Value Range Interpretation Code Description Data Kylah rce(s) Supporting Document(s) Microscopic observation [Identifier] in Unspecified specimen by Non- gynecological cytology method Laboratory test result [facility] ([facility], ) SPECIMEN: Bronchial brushing (right upper lobe) Prepared slides and brush in vial received SPECIMEN ADEQUACY: Satisfactory for evaluation CATEGORIZATION: Atypical cytology DESCRIPTIONS: Scant atypical cells exhbiting variation in size and nuclei with prominent nucleoli in a background of brochial cells and blood elements. Please correlate with surgical case [id number]. COMMENTS: 04/23/2020 - [address](ASCP) 04/23/2020 1149 (Prelim) Signed JYOTSNA SIDDIQUI MD 04/23/2020 1555 ID Date Data Source [id number] 04/22/2020 11:48:00 AM EDT [facility] ([facility]) Name Value Range Interpretation Code Description Data Kylah rce(s) Supporting Document(s) Microscopic observation [Identifier] in Unspecified specimen by Non- gynecological cytology method Laboratory test result [facility] ([facility]) SPECIMEN: FNA Left hilar lymp h node Cytolyt and prepared slides received SPECIMEN ADEQUACY: Satisfactory for evaluation CATEGORIZATION: Positive for Malignancy DESCRIPTIONS: Scattered clusters small groups and single atypical cells noted exhbiting atypical nuclei with prominent single and multiple nucleoli. The background consists of bronchial cells, pulmonary macrophages, scattere lymphocytes and red blood cells. COMMENTS: Please correlate with surgical case [id number]. 04/23/2020 - [address](ASCP) 04/23/2020 1005 (Prelim) Signed JYOTSNA SIDDIQUI MD 04/23/2020 155 ID Date Data Source [id number] 04/22/2020 10:47:00 AM EDT [facility] ([facility]) Name Value Range Interpretation Code Description Data Kylah rce(s) Supporting Document(s) Surgical pathology study Laboratory test result [facility] ([facility]) FINAL DIAGNOSIS A - Lung, right upper [...] MD 04/24/2020 1115 ID Date Data Source [id number] 04/22/2020 10:47:00 AM EDT [facility] Name Value Range Interpretation Code Description Data Kylah rce(s) Supporting Document(s) Surgical pathology study Laboratory test result [facility] ([facility]) Addendum 3 Entered: 05/18/2020-1145 PD-L1 KEYTRUDA shows [...] MD 04/24/2020 1115 ID Date Data Source [id number] 04/22/2020 10:37:00 AM [facility] ([facility]) Name Value Range Interpretation Code Description Data Kylah rce(s) Supporting Document(s) Microscopic observation [Identifier] in Unspecified specimen by Non- gynecological cytology method Laboratory test result [facility] ([facility]) SPECIMEN: Bronchoalveolar lav age (left upper lobe) 5ml [place] SPECIMEN ADEQUACY: Satisfactory for evaluation CATEGORIZATION: Positive for Malignancy DESCRIPTIONS: Scattered small groups of atypical cells exhibiting increased n/c ratios and muclei with prominent macronucleoli. The background consists of bronchial cells, scattered pulmonary macrophages and blood elements. COMMENTS: Please correlate with surgical case [id number]. 04/23/2020 - [address](ASCP) 04/23/2020 1116 (Prelim) Signed JYOTSNA SIDDIQUI MD 04/23/2020 1556 ID Date Data Source [id number] 04/22/2020 10:30:00 AM EDT [facility] ([facility]) Name Value Range Interpretation Code Description Data Kylah rce(s) Supporting Document(s) Microscopic observation [Identifier] in Unspecified specimen by Non- gynecological cytology method Laboratory test result [facility] ([facility]) will discuss at follow-up ID Date Data Source [id number] 04/22/2020 10:14:00 AM EDT [facility] ([facility]) Name Value Range Interpretation Code Description Data Kylah rce(s) Supporting Document(s) Bal Culture Laboratory test result Normal (applies to non- numeric results) [facility] ([facility]) FULL REPORT IN LAB NOTES ([facility] and [facility] 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 Cultural examination is highly recommended for clinical diagnosis. AFB smear Kinyoun NEGATIVE (NO AFB Seen ) ID Date Data Source [id number] 04/22/2020 10:14:00 AM EDT [facility] ([facility]) Name Value Range Interpretation Code Description Data Kylah rce(s) Supporting Document(s) Color Laboratory test result Above high normal [facility] ([facility]) Source Laboratory test result Normal (applies to non-n umeric results) [facility] ([facility]) BRON ALVEOLAR LAVAGE Bal WBC 53 CELLS/uL 0-10 Above high normal [facility] ([facility]) Appearance Laboratory test result Above high normal [facility] ([facility]) ID Date Data Source [id number] 04/22/2020 10:14:00 AM EDT [facility] Name Value Range Interpretation Code Description Data Kylah rce(s) Supporting Document(s) Neutrophils, Bal 5 % Normal (applies to non-numeric results) [facility] ([facility]) Lymphocytes, Bal 25 % Normal (applies to non-numeric results) [facility] ([facility]) Monocytes/Macrophages, Bal 70 % Normal (applies to n on-numeric results) [facility] ([facility]) ID Date Data Source [id number] 04/22/2020 10:14:00 AM EDT [facility]) Name Value Range Interpretation Code Description Data Kylah rce(s) Supporting Document(s) Afb Smear Laboratory test result [facility] ([facility]) Due to limited sensitivity, smear result s should be used as an adjunct in evaluating patient tuberculosis status. Cultural examination is highly recommended for clinical diagnosis. AFB smear Kinyoun NEGATIVE (NO AFB Seen ) Afb Culture Laboratory test result [facility] ([facility]) Testing performed at reference lab . Rep ort copy to follow on a separate form. 06/06/20 REF LAB#:[id number] FULL REPORT IN LAB NOTES ([facility] and [facility]). No Acid-Fast Bacilli Isolated after 6 Weeks. ID Date Data Source [id number] 04/22/2020 10:14:00 AM EDT [facility] Name Value Range Interpretation Code Description Data Kylah rce(s) Supporting Document(s) Fungal Smear Laboratory test result [facility] [facility]) Testing performed at reference lab . Rep ort copy to follow on a separate form. 06/06/20 REF LAB#:[id number] SIMA/Calcofluor preparatio No fungus observed. Fungal Culture Other Source Laboratory test result [facility] ([facility]) Testing performed at reference lab . Rep ort copy to follow on a separate form. 06/06/20 REF LAB#:[id number] FUNGUS CULTURE [facility] No Yeast or Mold Isolated after 4 weeks. ID Date Data Source [id number] [facility] Name Value Range Interpretation Code Description Data Kylah rce(s) Supporting Document(s) Glucose [Mass/volume] in Capillary blood by Glucometer 168 mg/dL 80-115 Above high normal [facility] ([facility]) ID Date Data Source [id number] 04/22/2020 08:48[facility] Name Value Range Interpretation Code Description Data Kylah rce(s) Supporting Document(s) Glucose, Fasting 146 mg/dL 70-100 Above high normal [facility] ([facility]) Blood Urea Nitrogen 19 mg/dL 7-18 Above high normal [facility] ([facility]) Glomerular Filtration Rate 51.8 Normal (applies to n on-numeric results) [facility] ([facility]) <content>Units are mL/min/1.73 m2</content>
<content></content>
<content>Chronic Kidney Disease Staging per NKF:</content>
<content></content>
<content>Stage I & II GFR >=60 Normal to Mildly Decreased</content>
<content>Stage III GFR 30- 59 Moderately Decreased</content>
<content>Stage IV GFR 15-29 Severely Decreased</content>
<content>Stage V GFR <15 Very Little GFR Left</content>
<content>ESRD GFR <15 on [employer]</content>
<content></content> Creatinine For GFR 1.12 mg/dL 0.55-1.30 Normal (applies to non -numeric results) [facility] ([facility], ) Potassium Serum 3.6 meq/L 3.5-5.1 Normal (applies to non-numeric results) [facility] ([facility], ) Sodium Level 138 meq/L 136-145 Normal (applies to non-numeric res ults) [facility] ([facility]) Carbon Dioxide Level 31 meq/L 21-32 Normal (applies to non-num nando results) [facility] ([facility], ) Anion Gap 6 meq/L 8-16 Below low normal [facility] ( [facility]) Chloride Level 101 meq/L 98-107 Normal (applies to non-numeric r esults) [facility] ([facility], ) Ast/Sgot 30 U/L 7-37 Normal (applies to non-numeric resul ts) [facility] ([facility], ) Calcium Level 9.3 mg/dL 8.8-10.2 Normal (applies to non-numeric re sults) [facility] ([facility], ) Alt/SGPT 31 U/L 12-78 Normal (applies to non-numeric resul ts) [facility] ([facility]) Total Protein 8.0 GM/DL 6.4-8.2 Normal (applies to non-numeric re sults) [facility] ([facility], ) Alkaline Phosphatase 213 U/L 45-117 Above high normal [facility] ([facility]) Bilirubin,Total 1.5 mg/dL 0.2-1.0 Above high normal [facility] ([facility], ) Albumin/Globulin Ratio 0.9 1.2-2.2 Below low normal [facility] ([facility], ) Albumin 3.7 GM/DL 3.2-5.2 Normal (applies to non-numeric resul ts) [facility] ([facility], ) ID Date Data Source [id number] 04/22/2020 08:48:00 AM EDT [facility] ([facility], ) Name Value Range Interpretation Code Description Data Kylah rce(s) Supporting Document(s) Red Blood Count 5.45 10 4.00-5.40 Above high normal [facility] ([facility], ) White Blood Count 11.7 10 4.0-10.0 Above high normal [facility] ([facility]) Hemoglobin 13.6 g/dL 12.0-15.5 Normal (applies to non-numeric resul ts) [facility] ([facility]) Hematocrit 45.3 % 36.0-47.0 Normal (applies to non-numeric resul ts) [facility] ([facility]) Mean Corpuscular Hemoglobin 25.0 pg 27.0-33.0 Below low normal [facility] ([facility]) Mean Corpuscular Volume 83.1 fl 80.0-96.0 Normal ( applies to non-numeric results) [facility] ([facility]) Red Cell Distribution Width 15.3 % 11.5-14.5 Above high normal [facility] ([facility]) Mean Corpuscular HGB Conc 30.0 g/dL 32.0-36.5 Below low normal [facility] ([facility]) Platelet Count, Automated 194 10 150-450 Normal (applies to non-numeric results) [facility] ([facility]) Brooks % 8.9 % 0.0-5.0 Above high normal [facility] ([facility]) Neutrophils % 76.7 % 36.0-66.0 Above high normal [facility] ([facility]) Lymph % 11.2 % 24.0-44.0 Below low normal [facility] ( [facility]) Baso % 0.9 % 0.0-1.0 Normal (applies to non-numeric resul ts) [facility] ([facility]) Eos % 1.6 % 0.0-3.0 Normal (applies to non-numeric resul ts) [facility] ([facility]) Immature Granulocyte % 0.7 % 0-3.0 Normal (applies to non-n umeric results) [facility] ([facility]) Nucleated Red Blood Cell % 0.0 % 0-0 Normal (applies to n on-numeric results) [facility] ([facility]) Lymph # 1.3 10 1.5-5.0 Below low normal [facility] ( [facility]) Neutrophils # 9.0 10 1.5-8.5 Above high normal [facility] ([facility]) Eos # 0.2 10 0.0-0.5 Normal (applies to non-numeric resul ts) [facility] ([facility]) Baso # 0.1 10 0.0-0.2 Normal (applies to non-numeric resul ts) [facility] ([facility]) Brooks # 1.0 10 0.0-0.8 Above high normal [facility] ([facility]) ID Date Data Source [id number] 04/22/2020 08:48:00 AM EDT [facility]) Name Value Range Interpretation Code Description Data Kylah rce(s) Supporting Document(s) Angiotensin converting enzyme [Enzymatic activity/volu me] in Serum or Plasma 38 U/L 14-82 Normal (applies to non-numeric results) [facility]) Performed at: RN - [facility] [place] [id number] Director Content Marketing: Lily Weaver MD, Phone: [phone] ID Date Data Source [id number] 04/22/2020 08:48:00 AM EDT [facility]) Name Value Range Interpretation Code Description Data Kylah rce(s) Supporting Document(s) Prothrombin Time 13.0 s 12.5-14.3 Normal (applies to non-numeric results) [facility] ([facility]) Inr 0.96 Normal (applies to non-numeric resul ts) [facility]) THERAPUTIC HUMAN INR VALUES INDICATIONS NORMAL RANGES PROPHYLAXIS/TREATMENT OF: VENOUS THROMBOSIS 2.0-3.0 PULMONARY EMBOLISM 2.0-3.0 PREVENTION OF SYSTEMIC EMBOLISM FROM: TISSUE HEART VALVES 2.0-3.0 ACUTE MYOCARDIAL INFARCTION 2.0-3.0 VALVULAR HEART DISEASE 2.0-3.0 ATRIAL FIBRILLATION 2.0-3.0 MECHANICAL VALVES(HIGH RISK) 2.5-3.5 RECURRENT MYOCARDIAL INFARCTION 2.5-3.5 ID Date Data Source [id number] 04/17/2020 01:00:00 PM EDT [facility] Name Value Range Interpretation Code Description Data Kylah rce(s) Supporting Document(s) SARS coronavirus 2 RNA [facility] This lab was ordered by [facility] and reported by [facility]. ID Date Data Source [id number] 04/07/2020 09:24:00 AM EDT [facility] [address] [place] [address] [phone] NAME SEX PT STATUS ACCOUNT NUMBER CODY AMATO REG REF [id number] ORDERING PHYSICIAN LOCATION MEDICAL RECORD NO. Marina Gibson [place] [id number] ATTENDING PHYSICIAN DATE OF DATE OF EXAM/TIME [...] rce(s) Supporting Document(s) ID Date Data Source [id number] 03/31/2020 04:43:00 PM EDT [facility] [address] [place] [id number] [phone] NAME SEX PT STATUS ACCOUNT NUMBER CODY AMATO REG REF [id number] ORDERING PHYSICIAN LOCATION MEDICAL RECORD NO. Marina Gibson [facility] [id number] ATTENDING PHYSICIAN DATE OF DATE OF EXAM/TIME Matt Huynh MD 1955 03/31/201641 TYPE / EXAM Xray Chest 2 view PA/LAT REASON FOR EXAM F/U RLL PNEUMONIA CODY AMATO [id number] 1955 ADDENDUM Critical findings were reported by phone to Marina Gibson on April 01, 2020 at 0932 hours. Addendum Reported By Sherwin Esqueda MD on 04/01/20927 Signed By Sherwin Esqueda MD on 04/01/20927 Trans Dt/Tm: Trans [...] rce(s) Supporting Document(s) ID Date Data Source [id number] 03/03/2020 09:49:00 AM EDT [facility] [address] [place] [address] [phone] NAME SEX PT STATUS ACCOUNT NUMBER CODY AMATO REG REF [id number] ORDERING PHYSICIAN LOCATION MEDICAL RECORD NO. Marina Gibson [facility] [id number] ATTENDING PHYSICIAN DATE OF DATE OF EXAM/TIME [...] Trans Dt/Tm: Trans by: DT Prt Dt/Tm: [id number]: Total DLP = 0.00 mGy-cm Fluoroscopy Time (in secs): Name Value Range Interpretation Code Description Data Kylah rce(s) Supporting Document(s) ID Date Data Source [id number] 12/05/2019 10:08:00 AM EDT [facility] [address] [place] [address] [phone] NAME SEX PT STATUS ACCOUNT NUMBER CODY AMATO REG REF [id number] ORDERING PHYSICIAN LOCATION MEDICAL RECORD NO. Marina JUDY [facility] [id number] ATTENDING PHYSICIAN DATE OF DATE OF EXAM/TIME [...] Trans Dt/Tm: Trans by: DT Prt Dt/Tm: [id number]: Total DLP = 0.00 mGy-cm Fluoroscopy Time (in secs): Name Value Range Interpretation Code Description Data Kylah rce(s) Supporting Document(s) ID Date Data Source [id number] 12/05/2019 09:33:00 AM EDT [facility] ([facility]) Name Value Range Interpretation Code Description Data Kylah rce(s) Supporting Document(s) Hemoglobin A1c/Hemoglobin.total in Blood 7.3 na Above high normal Hgba1c [facility] ([facility]) Note: Responsible Observer: KM ID Date Data Source [id number] 07/14/2019 12:24:00 PM [facility] [address] [place] [address] [phone] NAME SEX PT STATUS ACCOUNT NUMBER CODY AMATO REG REF [id number] ORDERING PHYSICIAN LOCATION MEDICAL RECORD NO. Matt Huynh MD MAMMO [id number] ATTENDING PHYSICIAN DATE OF DATE OF EXAM/TIME [...] mammogram was read with the assistance of [employer], an FDA- approved computer-aided detection system for [...] rce(s) Supporting Document(s) ID Date Data Source [id number] 07/01/2019 09:34:00 AM EST [facility] ([facility]) Name Value Range Interpretation Code Description Data Kylah rce(s) Supporting Document(s) Hemoglobin A1c/Hemoglobin.total in Blood 8.0 na Above high normal Hgba1c [facility] ([facility]) Note: Responsible Observer: AW ID Date Data Source [id number] 07/01/2019 09:34:00 AM EST [facility] ([facility]) Name Value Range Interpretation Code Description Data Kylah rce(s) Supporting Document(s) Blood [Presence] in Urine by Visual Negative Brayan/uL BLOOD [facility] ([facility]) Note: Responsible Observer: AW LEUK Negative Priscilla/uL LEUK [facility] ([facility]) Note: Responsible Observer: AW Clarity of Pleural fluid from Fetus Clear N/A CLARITY [facility] ([facility]) Note: Responsible Observer: AW Ketones [Presence] in Blood by Tablet Negative N/A KETONES [facility] ([facility]) Note: Responsible Observer: AW Color of Exudate from wound Yellow N/A COLOR [facility] ([facility]) Note: Responsible Observer: AW NITRITES Negative N/A NITRITES [facility] ([facility]) Note: Responsible Observer: AW Specific gravity of Pericardial fluid by Refractometry 1.020 N/A SPECIFIC GRAVITY [facility] ([facility]) Note: Responsible Observer: AW pH of Vaginal fluid by Test strip 7.0 N/A PH [facility] ([facility]) Note: Responsible Observer: AW URINE BILI Negative N/A URINE BILI [facility] ([facility]) Note: Responsible Observer: AW URINE GLUCOSE >=1000 mg/dL URINE GLUCOSE [facility] ([facility]) Note: Responsible Observer: AW Urobilinogen [Presence] in Urine by Automated test strip 1.0 EU/dL UROBILINOGEN [facility] ([facility]) Note: Responsible Observer: AW URINE PROTEIN Negative mg/dL URINE PROTEIN GREE [facility] ([facility]) Note: Responsible Observer: AW ID Date Data Source [id number] 07/01/2019 09:34:00 AM EST [facility] ([facility]) Name Value Range Interpretation Code Description Data Kylah rce(s) Supporting Document(s) Cholesterol [Moles/volume] in Pericardial fluid 172 mg/dl Cholesterol [facility] ([facility]) Note: Responsible Observer: AW HDL 43 mg/dl HDL [facility] ([facility]) Note: Responsible Observer: AW Dir. LDL 64 mg/dl Dir. LDL [facility] ([facility]) Note: Responsible Observer: AW Triglycerides 169 mg/dl Above high normal Triglycerides [facility] ([facility]) Note: Responsible Observer: AW ID Date Data Source [id number] 07/01/2019 09:34:00 AM EST [facility] ([facility]) Name Value Range Interpretation Code Description Data Kylah rce(s) Supporting Document(s) Alkaline Phos 179 IU/L Above high normal Alkaline Phos G [facility] ([facility]) Note: Responsible Observer: AW Albumin [Mass/volume] in Blood by Bromocresol purple ( BCP) dye binding method 4.2 g/dl Albumin [facility] ([facility]) Note: Responsible Observer: AW ALT 16 IU/L ALT [facility] ([facility]) Note: Responsible Observer: AW AST 22 IU/L AST [facility] ([facility]) Note: Responsible Observer: AW Urea nitrogen [Moles/volume] in Blood 19 mg/dl Urea Nitrogen [facility] ([facility]) Note: Responsible Observer: AW Calcium [Moles/volume] in Urine collected for unspecified durati on 9.4 mg/dl Calcium [facility] ([facility]) Note: Responsible Observer: AW CO2 26 mmol/L CO2 [facility] ([facility]) Note: Responsible Observer: AW Chloride [Moles/volume] in Serum, Plasma or Blood 103 mmol/L Chloride [facility] ([facility]) Note: Responsible Observer: AW EGFR - AfricanAm > 60 N/A EGFR - AfricanAm [facility] Note: Responsible Observer: AW EGFR - Non AF AM 56 N/A Above high normal EGFR - Non A F AM [facility] ([facility]) Note: Responsible Observer: AW Creatinine [Moles/volume] in Vitreous fluid 1 mg/dl Creatinine [facility] ([facility]) Note: Responsible Observer: AW Sodium [Moles/volume] in Serum, Plasma or Blood 140 mmol/L Sodium [facility] ([facility]) Note: Responsible Observer: AW Glucose [Mass/volume] in Urine collected for unspecified duratio n 126 mg/dl Above high normal Glucose [facility] ([facility]) Note: Responsible Observer: AW Potassium [Mass/volume] in Blood 4.1 mmol/L Pot assium [facility] ([facility]) Note: Responsible Observer: AW Total Bilirubin 1 mg/dl [facility] ([facility]) Note: Responsible Observer: AW Total Protein 7.2 g/dl Total Protein [facility] ([facility]) Note: Responsible Observer: AW ID Date Data Source [id number] 07/01/2019 09:34:00 AM EST [facility] ([facility]) Name Value Range Interpretation Code Description Data Kylah rce(s) Supporting Document(s) GRAN% 67.2 % GRAN% [facility] ([facility]) Note: Responsible Observer: AW GRAN# 2.4 /mm3 Below low normal GRAN# [facility] ([facility]) Note: Responsible Observer: AW HCT 37.6 % HCT [facility] ([facility]) Note: Responsible Observer: AW HGB 12.2 g/dl HGB [facility] ([facility]) Note: Responsible Observer: AW LY# 1.0 /mm3 Below low normal LY# [facility] ([facility]) Note: Responsible Observer: AW LY% 26.9 % LY% [facility] ([facility]) Note: Responsible Observer: AW MCH 27.4 pg MCH [facility] ([facility]) Note: Responsible Observer: AW MCHC 32.5 G/DL MCHC [facility] ([facility]) Note: Responsible Observer: AW MID% 5.9 % MID% [facility] ([facility]) Note: Responsible Observer: AW MCV 84.3 um3 MCV [facility] ([facility]) Note: Responsible Observer: AW MID# 0.2 /mm3 MID# [facility] ([facility]) Note: Responsible Observer: AW PLT 147 /mm3 Below low normal PLT [facility] ([facility]) Note: Responsible Observer: AW MPV 10.7 um3 MPV [facility] ([facility]) Note: Responsible Observer: AW WBC 3.6 /mm3 Below low normal WBC [facility] ([facility]) Note: Responsible Observer: AW RBC 4.46 /mm3 RBC [facility] ([facility]) Note: Responsible Observer: AW RDW 17.1 % Above high normal RDW [facility] ([facility]) Note: Responsible Observer: AW ID Date Data Source [id number] 07/01/2019 09:34:00 AM EST [facility] ([facility]) Name Value Range Interpretation Code Description Data Kylah rce(s) Supporting Document(s) ACR 35.7 ug/mg Above high normal ACR [facility] ([facility]) Note: Responsible Observer: AW Urine Creat 102.4 mg/dl Urine Creat [facility] ([facility]) Note: Responsible Observer: AW Micro alb 36.5 mg/L Above high normal Micro alb [facility] ([facility]) Note: Responsible Observer: AW Procedure Social History Code Duration Value Status Description Data Source(s ) Smoking 05/28/2020 12:00:00 AM EST Patient is a former smoker completed Patient is a former smoker [facility] ([facility]) Vital Signs ID Date Data Source UNK Name Value Range Interpretation Code Description Data Source(s) Oxygen saturation in Arterial blood by Pulse oximetry 98 % 98 % [facility] ([facility]) Body surface area Derived from formula 1.86 m2 1.86 m2 [facility] ([facility]) Body mass index (BMI) [Ratio] 36.5 kg/m2 36.5 k g/m2 [facility] ([facility]) Body weight 193 [lb_av] 193 [lb_av] [facility] ([facility]) Body height 61 [in_i] 61 [in_i] [facility] ([facility]) Heart rate 110 /min 110 /min [facility] ([facility]) Diastolic blood pressure 68 mm[Hg] 68 mm[Hg] [facility] ([facility]) Systolic blood pressure 122 mm[Hg] 122 mm[Hg] [facility] Systolic blood pressure 130 mm[Hg] 130 mm[Hg] [facility] Body surface area Derived from formula 1.81 m2 1.81 m2 [facility] ([facility]) Body weight 84.823 kg 84.823 kg [facility] ([facility]) [place] body weight 100 [lb_av] 100 [lb_av] [facility] Body mass index (BMI) [Ratio] 36.5 kg/m2 36.5 k g/m2 [facility] ([facility]) Body weight 187.00 [lb_av] 187.00 [lb_av] [facility] Body height 60 [in_i] 60 [in_i] [facility] ([facility]) 5'0" Oxygen saturation in Arterial blood by Pulse oximetry 99 % 99 % [facility] ([facility]) o2 sat on 2L Heart rate 118 /min 118 /min [facility] ([facility], ) Diastolic blood pressure 68 mm[Hg] 68 mm[Hg] [facility] Body surface area Derived from formula 1.83 m2 1.83 m2 [facility] ([facility]) Body mass index (BMI) [Ratio] 35.2 kg/m2 35.2 k g/m2 [facility] ([facility]) Body weight 186.375 [lb_av] 186.375 [lb_av] [facility] Body height 61 [in_i] 61 [in_i] [facility] ([facility]) Respiratory rate 32 /min 32 /min [facility] ([facility]) Heart rate 114 /min 114 /min [facility] ([facility]) Diastolic blood pressure 60 mm[Hg] 60 mm[Hg] [facility] ([facility]) Systolic blood pressure 100 mm[Hg] 100 mm[Hg] G [facility] ([facility]) Inhaled oxygen concentration 28 % 28 % [facility] ([facility]) Inhaled oxygen flow rate 2 L/min 2 L/min [facility]) Oxygen saturation in Arterial blood by Pulse oximetry 98 % 98 % [facility] ([facility]) Body surface area Derived from formula 1.86 m2 1.86 m2 [facility] ([facility]) Body mass index (BMI) [Ratio] 36.3 kg/m2 36.3 k g/m2 [facility] ([facility]) Body weight 192 [lb_av] 192 [lb_av] [facility] ([facility]) Body height 61 [in_i] 61 [in_i] [facility] ([facility]) Diastolic blood pressure 79 mm[Hg] 79 mm[Hg] [facility] ([facility]) Systolic blood pressure 121 mm[Hg] 121 mm[Hg] [facility] ([facility]) Body surface area Derived from formula 1.83 m2 1.83 m2 [facility] Body weight 86.184 kg 86.184 kg [facility] ([facility], ) [place] body weight 100 [lb_av] 100 [lb_av] [facility] ([facility], ) Body mass index (BMI) [Ratio] 37.1 kg/m2 37.1 k g/m2 [facility] ([facility]) Body weight 190.00 [lb_av] 190.00 [lb_av] [facility] ([facility]) Body height 60 [in_i] 60 [in_i] [facility] ([facility]) 5'0" Oxygen saturation in Arterial blood by Pulse oximetry 95 % 95 % [facility] ([facility]) Room Air Heart rate 88 /min 88 /min [facility] ([facility]) Diastolic blood pressure 60 mm[Hg] 60 mm[Hg] [facility] ([facility]) Systolic blood pressure 120 mm[Hg] 120 mm[Hg] M [facility]) Body surface area Derived from formula 1.81 m2 1.81 m2 [facility] ([facility]) Body mass index (BMI) [Ratio] 34.2 kg/m2 34.2 k g/m2 [facility] ([facility]) Body weight 181 [lb_av] 181 [lb_av] [facility] ([facility]) Body height 61 [in_i] 61 [in_i] [facility] ([facility]) Heart rate 90 /min 90 /min [facility] ([facility]) Diastolic blood pressure 55 mm[Hg] 55 mm[Hg] [facility] ([facility]) Systolic blood pressure 99 mm[Hg] 99 mm[Hg] [facility] Body surface area Derived from formula 1.81 m2 1.81 m2 [facility] ([facility]) Body weight 84.370 kg 84.370 kg [facility] ([facility]) [place] body weight 100 [lb_av] 100 [lb_av] [facility] ([facility]) Body mass index (BMI) [Ratio] 36.3 kg/m2 36.3 k g/m2 [facility] ([facility]) Body weight 186.00 [lb_av] 186.00 [lb_av] [facility] ([facility]) Body height 60 [in_i] 60 [in_i] [facility] ([facility]) 5'0" Oxygen saturation in Arterial blood by Pulse oximetry 98 % 98 % [facility] ([facility]) Heart rate 91 /min 91 /min [facility] ([facility]) Diastolic blood pressure 62 mm[Hg] 62 mm[Hg] [facility] ([facility]) Systolic blood pressure 108 mm[Hg] 108 mm[Hg] [facility] ([facility]) Body weight 87.545 kg 87.545 kg [facility] ([facility]) [place] body weight 100 [lb_av] 100 [lb_av] [facility] ([facility]) Body mass index (BMI) [Ratio] 37.7 kg/m2 37.7 k g/m2 [facility] ([facility]) Body weight 193.00 [lb_av] 193.00 [lb_av] [facility] Body height 60 [in_i] 60 [in_i] [facility] ([facility]) 5'0" Oxygen saturation in Arterial blood by Pulse oximetry 90 % 90 % [facility] ([facility]) Heart rate 90 /min 90 /min [facility] ([facility]) Diastolic blood pressure 70 mm[Hg] 70 mm[Hg] [facility] ([facility]) Systolic blood pressure 110 mm[Hg] 110 mm[Hg] [facility] ([facility]) Systolic blood pressure 100 mm[Hg] 100 mm[Hg] [facility]) Oxygen saturation in Arterial blood by Pulse oximetry 95 % 95 % [facility] ([facility]) Body surface area Derived from formula 1.85 m2 1.85 m2 [facility] ([facility]) Body mass index (BMI) [Ratio] 35.9 kg/m2 35.9 k g/m2 [facility] ([facility]) Body weight 190 [lb_av] 190 [lb_av] [facility] ([facility]) Body height 61 [in_i] 61 [in_i] [facility] ([facility]) Respiratory rate 24 /min 24 /min [facility] ([facility]) Heart rate 90 /min 90 /min [facility] ([facility]) Diastolic blood pressure 68 mm[Hg] 68 mm[Hg] [facility]) Oxygen saturation in Arterial blood by Pulse oximetry 93 % 93 % [facility]) Body surface area Derived from formula 1.86 m2 1.86 m2 [facility] ([facility]) Body mass index (BMI) [Ratio] 36.7 kg/m2 36.7 k g/m2 [facility] ([facility]) Body weight 194 [lb_av] 194 [lb_av] [facility] ([facility]) Body height 61 [in_i] 61 [in_i] [facility] ([facility]) Body temperature 98.7 [degF] 98.7 [degF] [facility] ([facility]) Respiratory rate 30 /min 30 /min [facility] ([facility]) Heart rate 110 /min 110 /min [facility] ([facility]) Diastolic blood pressure 50 mm[Hg] 50 mm[Hg] [facility] ([facility]) Systolic blood pressure 82 mm[Hg] 82 mm[Hg] [facility] ([facility]) Body surface area Derived from formula 1.89 m2 1.89 m2 [facility]) Body mass index (BMI) [Ratio] 37.9 kg/m2 37.9 k g/m2 [facility]) Body weight 200.375 [lb_av] 200.375 [lb_av] [facility] ([facility]) Body height 61 [in_i] 61 [in_i] [facility] ([facility]) Respiratory rate 20 /min 20 /min [facility] ([facility]) Heart rate 88 /min 88 /min [facility] ([facility]) Diastolic blood pressure 62 mm[Hg] 62 mm[Hg] [facility] ([facility]) Systolic blood pressure 110 mm[Hg] 110 mm[Hg] [facility] ([facility]) Oxygen saturation in Arterial blood by Pulse oximetry 96 % 96 % [facility] ([facility]) Body surface area Derived from formula 1.90 m2 1.90 m2 [facility]) Body mass index (BMI) [Ratio] 38.2 kg/m2 38.2 k g/m2 [facility]) Body weight 202 [lb_av] 202 [lb_av] [facility] ([facility]) Body height 61 [in_i] 61 [in_i] [facility] ([facility]) Body temperature 98.2 [degF] 98.2 [degF] [facility]) Respiratory rate 26 /min 26 /min [facility] ([facility]) Heart rate 88 /min 88 /min [facility] ([facility]) Diastolic blood pressure 50 mm[Hg] 50 mm[Hg] [facility] ([facility]) Systolic blood pressure 98 mm[Hg] 98 mm[Hg] [facility] ([facility]) Oxygen saturation in Arterial blood by Pulse oximetry 95 % 95 % [facility] ([facility]) Body height 61 [in_i] 61 [in_i] [facility] ([facility]) Body temperature 97.3 [degF] 97.3 [degF] [facility] ([facility]) Respiratory rate 26 /min 26 /min [facility] ([facility]) Heart rate 80 /min 80 /min [facility] ([facility]) Body surface area Derived from formula 1.95 m2 1.95 m2 [facility] ([facility]) Body mass index (BMI) [Ratio] 40.6 kg/m2 40.6 k g/m2 [facility] ([facility]) Body weight 215 [lb_av] 215 [lb_av] [facility] ([facility]) Body height 61 [in_i] 61 [in_i] [facility] ([facility]) Heart rate 78 /min 78 /min [facility] ([facility]) Diastolic blood pressure 77 mm[Hg] 77 mm[Hg] [facility] ([facility]) Systolic blood pressure 143 mm[Hg] 143 mm[Hg] [facility] ([facility]) Patient Treatment Plan of Care Planned Activity Planned Date Details Description Data Source (s) calcipotriene 0.53517 MG/MG Topical Ointment [Calcitre ne] 07/01/2020 12:00:00 AM [facility] ([facility]) Clobetasol Propionate 0.0005 MG/MG Topical Ointment 07/01/20 12:00:00 AM [facility] Trazodone Hydrochloride 50 MG Oral Tablet 06/27/2020 12:00:00 AM [facility] ([facility]) Lorazepam 0.5 MG Oral Tablet 06/27/2020 12:00:00 AM [facility]) OneTouch Delica Lancets 33G Miscellaneous 06/19/2020 12:00:00 AM [facility] ([facility]) OneTouch Verio In Vitro Strip 06/19/2020 12:00:00 AM [facility]) OneTouch Verio Flex System w/Device Kit 06/19/2020 12:00:00 AM [facility]) Accu-Chek Guide In Vitro Strip 06/19/2020 12:00:00 AM [facility]) Accu-Chek Guide w/Device Kit 06/19/2020 12:00:00 AM [facility]) Accu-Chek FastClix Lancets Miscellaneous 06/19/2020 12:00:00 AM [facility]) Lorazepam 0.5 MG Oral Tablet 06/11/2020 12:00:00 AM [facility]) Prednisone 20 MG Oral Tablet 04/07/2020 12:00:00 AM [facility]) Azithromycin 250 MG Oral Tablet 04/07/2020 12:00:00 AM [facility]) Levofloxacin 500 MG Oral Tablet [Levaquin] 03/02/2020 12:00:00 AM [facility] ([facility]) Basaglar KwikPen 100 UNIT/ML Subcutaneous Solution Pen -injector 02/11/2020 12:00:00 AM [facility] ([facility]) empagliflozin 10 MG Oral Tablet [Jardiance] 02/05/2020 12:00:00 AM [facility]) 24 HR metoprolol succinate 50 MG Extended Release Oral Tablet 02/05/2020 12:00:00 AM [facility] ([facility]) BD Pen Needle Isabel U/F 32G X 4 MM Miscellaneous 01/24/2020 12:00:00 AM [facility]) Hydrochlorothiazide 12.5 MG Oral Tablet 01/20/2020 12:00:00 AM [facility] ([facility]) Enalapril Maleate 5 MG Oral Tablet 01/20/2020 12:00:00 AM [facility]) Medrol 4 MG Oral Tablet Therapy Pack 12/19/2019 12:00:00 AM [facility]) 30 ACTUAT fluticasone furoate 0.1 MG/ACT UAT / vilanterol 0.025 MG/ACTUAT Dry Powder Inhaler [Breo] 12/05/2019 12:00:00 AM [facility] ([facility]) Levofloxacin 500 MG Oral Tablet [Levaquin] 12/05/2019 12:00:00 AM [facility] ([facility]) vilazodone hydrochloride 40 MG Oral Tablet [Viibryd] 020 12:00:00 AM [facility] Azithromycin 250 MG Oral Tablet 10/14/2019 12:00:00 AM [facility]) Ozempic (0.25 or 0.5 MG/DOSE) 2 MG/1.5ML Subcutaneous Solution Pen-injector 09/26/2019 12:00:00 AM [facility] ([facility]) Lovastatin 20 MG Oral Tablet 09/23/2019 12:00:00 AM [facility] ([facility]) 3 ML liraglutide 6 MG/ML Pen Injector [Victoza] 08/14/2019 12:00:00 AM [facility]) Hydrochlorothiazide 12.5 MG Oral Tablet 07/29/2019 12:00:00 AM [facility]) Enalapril Maleate 5 MG Oral Tablet 07/29/2019 12:00:00 AM [facility]) pantoprazole 40 MG Delayed Release Oral Tablet 07/01/2019 12:00:00 AM [facility]) Enalapril Maleate 5 MG / Hydrochlorothiazide 12.5 MG O ral Tablet 06/24/2019 12:00:00 AM [facility]) 3 ML liraglutide 6 MG/ML Pen Injector [Victoza] 03/18/2019 12:00:00 AM [facility] ([facility]) empagliflozin 10 MG Oral Tablet [Jardiance] 02/05/2019 12:00:00 AM [facility]) 24 HR metoprolol succinate 50 MG Extended Release Oral Tablet 02/05/2019 12:00:00 AM [facility] ([facility]) Basaglar KwikPen 100UNIT/ML Subcutaneous Solution Pen- injector 01/24/2019 12:00:00 AM [facility] ([facility]) vilazodone hydrochloride 40 MG Oral Tablet [Viibryd] 019 12:00:00 AM [facility]) Lovastatin 20 MG Oral Tablet 09/24/2018 12:00:00 AM [facility] ([facility]) pantoprazole 40 MG Delayed Release Oral Tablet 07/20/2018 12:00:00 AM [facility] ([facility]) calcipotriene 0.89786 MG/MG Topical Ointment [Calcitre ne] 06/28/2018 12:00:00 AM [facility] ([facility]) Clobetasol Propionate 0.0005 MG/MG Topical Ointment 04/02/20 12:00:00 AM [facility] ([facility]) 24 HR Bupropion Hydrochloride 150 MG Extended Release Oral Tablet 02/28/2018 12:00:00 AM [facility] ([facility]) BD Pen Needle Isabel U/F 32G X 4 MM MISC 03/30/2016 12:00:00 AM [facility])
--- NOTE | 2020-08-05 07:58 | REP ---
INDICATION: DYSPNEA/COUGH COMPARISON: 07/01/2020 TECHNIQUE: Portable AP view of the chest FINDINGS: [id number] in stable position. Mediastinum and cardiac silhouette relatively stable although incompletely evaluated due to overlying opacities. The lung malone demonstrate lower lobe airspace disease and moderate pleural effusions which are similar to prior examination. No pneumothorax. Skeletal structures stable. IMPRESSION: Moderate pleural effusions and lower lobe opacities similar to prior examination. <Electronically signed by Tomi Tejeda > 08/05/20 [id number]
[2020-08-05 08:02] LABS: BASO # 0.1 10^3/uL (0.0-0.2); BASO % 1.4 % (0.0-1.0); EOS % 0.7 % (0.0-3.0); HEMATOCRIT 41.5 % (36.0-47.0); HEMOGLOBIN 11.8 g/dl (12.0-15.5); LYMPH # 0.4 10^3/uL (1.5-5.0); LYMPH % 6.5 % (24.0-44.0); MEAN CORPUSCULAR HEMOGLOBIN 26.8 pg (27.0-33.0); MEAN CORPUSCULAR HGB CONC 28.4 g/dl (32.0-36.5); MEAN CORPUSCULAR VOLUME 94.3 fl (80.0-96.0); MONO # 0.5 10^3/uL (0.0-0.8); NEUTROPHILS # 4.9 10^3/uL (1.5-8.5); NEUTROPHILS % 82.9 % (36.0-66.0); PLATELET COUNT, AUTOMATED 164 10^3/uL (150-450); WHITE BLOOD COUNT 5.9 10^3/uL (4.0-10.0)
[2020-08-05 08:10] LABS: INR 0.99; PROTHROMBIN TIME 13.3 SECONDS (12.5-14.3)
[2020-08-05 08:30] VITALS: O2SAT 99
[2020-08-05 08:34] LABS: ALT/SGPT 16 U/L (12-78); BILIRUBIN,DIRECT 0.4 MG/DL (0.0-0.2); BILIRUBIN,TOTAL 1.1 MG/DL (0.2-1.0); BLOOD UREA NITROGEN 11 MG/DL (7-18); CALCIUM LEVEL 9.1 MG/DL (8.8-10.2); CARBON DIOXIDE LEVEL 23 MEQ/L (21-32); CHLORIDE LEVEL 102 MEQ/L (98-107); CK-MB VALUE MASS 1.7 NG/ML (<3.6); CPK CREATINE PHOSPHOKINASE 38 U/L (26-192); CREATININE FOR GFR 0.71 MG/DL (0.55-1.30); GLOMERULAR FILTRATION RATE > 60.0 (>45); GLUCOSE, FASTING 107 MG/DL (70-100); MB/CK RELATIVE INDEX 4.47 (< OR =4); NT-PRO BNP 337 PG/ML (<125); POTASSIUM SERUM 3.8 MEQ/L (3.5-5.1); SODIUM LEVEL 143 MEQ/L (136-145); THYROID STIMULATING HORMONE 0.823 uIU/ML (0.358-3.740); TOTAL PROTEIN 6.1 GM/DL (6.4-8.2); TROPONIN I < 0.02 NG/ML (< 0.10)
[2020-08-05 08:44] LABS: ABG BASE EXCESS -4.4 (-2.0-2.0); ABG HCO3 20.7 MEQ/L (22.0-26.0); ABG O2 SATURATION 95.6 % (95.0-99.0); ABG PARTIAL PRESSURE O2 77.7 mmHg (75.0-100.0); ABG STANDARD HCO3 20.8 MEQ/L (22.0-26.0); ABG TOTAL CO2 21.8 MEQ/L (23.0-31.0); ABG pH (ARTERIAL) 7.353 UNITS (7.350-7.450)
[2020-08-05] MEDS ORDERED: ISOVUE-370 76% 100ML VIAL As Ordered ONE (09:33)
--- NOTE | 2020-08-05 10:30 | REP ---
INDICATION: shortness of breath, cancer COMPARISON: 06/30/2020 TECHNIQUE: Axial contrast enhanced images from the thoracic inlet to the upper abdomen using pulmonary embolus technique with multiplanar re-formations. 75 ml Isovue 370 intravenous contrast material administered without complication. This CT examination was performed using the following dose reduction techniques: Automated exposure control, adjustment of mA and/or kv according to the patient's size, and use of iterative reconstruction technique. FINDINGS: There is satisfactory enhancement of the pulmonary vasculature and no filling defects are identified to suggest pulmonary embolus. Findings suggest prior right upper lobe resection. Moderate left pleural effusion, diffuse patchy bilateral infiltrates along with primarily right perihilar and bilateral lower lobe consolidations (right greater than left) as well as mediastinal and hilar adenopathy again identified and relatively similar to prior examination. Thoracic aorta without aneurysm or dissection. No cardiomegaly. Small stable pericardial effusion again noted. Upper abdomen demonstrates marked ascites along with suspected upper abdominal adenopathy which is again similar to prior examination. IMPRESSION: 1. No evidence for pulmonary embolus. 2. Postsurgical changes and volume loss to the right hemithorax. 3. Moderate left effusion, scattered patchy airspace disease, perihilar and lower lobe consolidations (right greater than left) and adenopathy again noted and similar to prior examination. 4. Stable upper abdominal findings including ascites and adenopathy again noted and essentially unchanged. <Electronically signed by Tomi Tejeda > 08/05/20 [id number]
[2020-08-05] MEDS ORDERED: FERR325T20 PO (11:27)
[2020-08-05] MEDS ORDERED: CALC0.004 TOP (11:27)
[2020-08-05] MEDS ORDERED: LEVA0.6322 INH (11:27)
[2020-08-05] MEDS ORDERED: METO1TAB7 PO (11:27)
--- NOTE | 2020-08-05 11:49 | REP ---
INDICATION: ascites COMPARISON: 06/06/2020 TECHNIQUE: Axial noncontrast images from the lung bases to the pubic symphysis with coronal and sagittal reformations. This CT examination was performed using the following dose reduction techniques: Automated exposure control, adjustment of mA and/or kv according to the patient's size, and use of iterative reconstruction technique. FINDINGS: Diffuse marked ascites along with mesenteric stranding and suspicion for scattered adenopathy as well as possible peritoneal soft tissue metastatic implants are suspected although evaluation is somewhat limited by the lack of contrast enhancement. Cirrhosis and splenomegaly cannot be excluded. Gallbladder demonstrates small amount of layering sludge without obvious acute cholecystitis. The pancreas is grossly unremarkable. The bilateral adrenal glands are relatively normal by noncontrast evaluation. Left kidney appears normal. Right kidney appears atrophic with few cystic changes noted. There is no evidence for bowel obstruction and no free air to suggest bowel perforation. Colonic and sigmoid diverticulosis noted. Pelvis demonstrates normal bladder and evidence for prior hysterectomy. Diffuse subcutaneous edema is appreciated. Atherosclerotic changes to the aorta noted without aneurysm. Musculoskeletal structures demonstrate degenerative changes. IMPRESSION: 1. Marked ascites. Cannot exclude scattered adenopathy as well as the possibility of peritoneal soft tissue implants. Evaluation is limited due to the lack of contrast enhancement. 2. Cirrhosis and splenomegaly. 3. Stable simple right renal cysts. <Electronically signed by Tomi Tejeda > 08/05/20 [id number]
[2020-08-05] MEDS ORDERED: LEVALBUTEROL 1.25 MG/0.5 ML CONCENTRATE NEB NEB PRN (12:00)
[2020-08-05] MEDS: LEVALBUTEROL 1.25 MG/0.5 ML CONCENTRATE NEB NEB SCH ×3 (12:00→20:11)
--- NOTE | 2020-08-05 12:06 | HPEPDOC ---
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 The patient states her shortness of breath is with exertion and at rest, worsened with exertion. She states she's also had decreased appetite with increased nausea over the past 3 days. The patient is currently undergoing chemotherapy for her cancer with keytruda Rosanna she is on her second dose. She complains of diarrhea which started around the time she started her treatments and also complains of increased wheezing along with decreased appetite and decreased by mouth intake. She denies fevers, chills, lightheadedness, dizziness, coughing also complains of increased lethargy. She also has increased abdominal distention which she states has been worsening over month. She follows regularly with her primary care provider and hematology/oncology. The patient had a recent admission in June 2020 where they attempted to drain a left- sided pleural effusion; however, there was not enough there to drain. Due to worsening shortness of breath the patient decided to come to the emergency room for further evaluation. The ER, vital signs showed tachycardia with heart rates as high as 130s, sinus rhythm, other vital signs showed no hypoxia but she was on 2 L which is her home amount. VBG pH 7.22; however, ABG 7.35 on 2 L nasal cannula which his home amount. Abnormal labs include BNP slightly elevated at 330, CK-MB slightly elevated, troponin normal. BMP and CBC unremarkable from baseline. CTA chest: 1. No evidence for pulmonary embolus. 2. Postsurgical changes and volume loss to the right hemithorax. 3. Moderate left effusion, scattered patchy airspace disease, perihilar and lower lobe consolidations (right greater than left) and adenopathy again noted and similar to prior examination. 4. Stable upper abdominal findings including ascites and adenopathy again noted and essentially unchanged. CT abd/pelvis: 1. Marked ascites. Cannot exclude scattered adenopathy as well as the possibility of peritoneal soft tissue implants. Evaluation is limited due to the lack of contrast enhancement. 2. Cirrhosis and splenomegaly. 3. Stable simple right renal cysts. Patient states she has no prior history of "cirrhosis" diagnosis, Hepatitis, or alcohol use. Case discussed with Dr. Tran who stated Left pleural effusion appears small, a grees with paracentesis to help with incr SOB, holding off on drainage of left pleural effusion. Patient was admitted for increased shortness of breath likely multifactorial to bilateral pleural effusion, increased abd distension poss 2/2 to worsening cirrhosis vs. metastatic cancer?, HCAP. REVIEW OF SYSTEMS: Neg except for what is mentioned above PAST MEDICAL HISTORY: 1. Sarcoidosis 2. HTN 3. IDDM 4. History of pulmonary embolism 5. GERD 6. Psoriasis 7. 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 PD L1 25% positive, ROSS1 negative, BRAF positive and ALK-negative. S/p radiation, keytruda 8. malignant pericardial effusion 9. portal hypertension 10. ? cirrhosis on imaging CT abd/pelvis 11. postobstructive pneumonia RML/RLL 12. malignant b/l pleural effusions s/p chest tube 13. Peritoneal carcinomatosis PAST SURGICAL HISTORY: 1. Hysterectomy 2. Hernia repair 3. Right chest tube and pericardial window for malignant pericardial effusion 4. Gqitit-P-Ejfq FAMILY HISTORY: Mother had congestive heart failure Father had emphysema Sr. had colon cancer, now SOCIAL HISTORY: Prior smoker 1 PPD, quit 30 years ago. Denies alcohol or drug use. Uses walker at baseline ALLERGIES: Please see below. HOME MEDICATIONS: Please see below. PHYSICAL EXAMINATION: VS: Please see below CONSTITUTIONAL: SOB, appears slightly uncomfortable, AAO x 3 EYES: PERRLA, EOM intact HENT, MOUTH: Normocephalic, atraumatic, moist mucous membranes, NC in place NECK: SUPPLE, no JVD, no lymphadenopathy, no carotid bruit CV: tachycardic, Regular rhythm, S1S2 normal, no murmurs/rubs/gallops RESPIRATORY: Crackles in right mid-lower lung, crackles in left lower lung. Exp wheezing b/l, no rales/rhonchi GI: distended abdomen with right upper quadrant BS positive in 4 quadrants, soft, nontender, nondistended, no rebound or guarding, no organomegaly : Deferred MUSCULOSKELETAL: Normal ROM. No cyanosis, clubbing, swelling, joint deformity, +1 lower extremity edema INTEGUMENTARY: Intact, psoriatic lesions on all extremities and abdomen, nontender. no erythema NEUROLOGIC: Cranial Nerves II-XII are intact, no focal deficits PSYCHIATRIC: Mood and affect are normal LABORATORY DATA: Please see below IMAGING: CTA chest: 1. No evidence for pulmonary embolus. 2. Postsurgical changes and volume loss to the right hemithorax. 3. Moderate left effusion, scattered patchy airspace disease, perihilar and lower lobe consolidations (right greater than left) and adenopathy again noted and similar to prior examination. 4. Stable upper abdominal findings including ascites and adenopathy again noted and essentially unchanged. CT abd/pelvis: 1. Marked ascites. Cannot exclude scattered adenopathy as well as the possibility of peritoneal soft tissue implants. Evaluation is limited due to the lack of contrast enhancement. 2. Cirrhosis and splenomegaly. 3. Stable simple right renal cysts. 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 metastatic cancer?, HCAP PLAN: Shortness of breath likely multifactorial bilateral pleural effusion, increased abd distension poss 2/2 to worsening cirrhosis vs. metastatic cancer?, HCAP -Appears slightly uncomfortable with marked abdominal distention -Also has history of malignant pericardial effusion, sarcoidosis -Currently on 2 LNC, home amount of O2 -C/w treatment below for individual issues Abdominal ascites possibly 2/2 to peritoneal carcinomatosis vs. cirrhosis? -No known cirrhosis hx per patient, denies hepatitis hx or alcohol abuse history -Will order abd paracentesis, hepatitis panel, ascitic fluid studies -F/u results HCAP -Recent hospitalization in 06/2020, treated with abx at that time -CTA chest above -F/u MRSA, blood cultures, fluid cx from PleurX cath -Cefepime, Vancomycin, nebs Bilateral malignant pleural effusions -On last admission in 06/2020, left effusion was attempted to be drained but not enough fluid present -CTA chest above -Discussed with Dr. Tran (CT surgery), will do paracentesis first and see if this improves SOB. If not, will officially consult to see if tapping of left necessary. -C/w drainage of right PleurX catheter home schedule, methylprednisolone, levalbuterol PRN and ATC Metastatic adenocarcinoma right lung, extensive per heme/onc -PD L1 25% positive, ROSS1 negative, BRAF positive and ALK-negative. -S/p [address] Gann, s/p 2 doses of keytruda -Discussed with Dr. Regalado, hematology/onc. States prognosis is poor. Attempting several sessions more of chemo likely but if does not respond then prognosis worsens. -At this time, will not officially consult but call if needed. -DNR/DNI Hx of malignant pericardial effusion -Tachycardia, incr SOB- cannot r/o that this has worsened -Will f/u echocardiogram HTN -Stable -C/w home med DM type II -Consistent carb diet -ISS, FS AC/HS -Monitor closely while on steroids Cirrhotic changes of liver -No documented cirrhosis hx, no alcohol abuse or hepatitis history -F/u hepatitis w/u, ascites fluid tests GERD -PPI DVT px -Enoxaparin DISPOSITION: Admitted as acute inpatient status, PCU. Plan is hopefully discharge home when medically improved. Vital Signs Vital Signs Date Time Temp Pulse Resp B/P (MAP) Pulse Ox O2 Delivery O2 Flow Rate FiO2 08/05/20 11:45 133 25 142/66 (91) 100 Nasal Cannula 2.0 08/05/20 06:52 97.8 Laboratory Data Labs 24H Laboratory Tests 2 08/05/20 07:36: Immature Granulocyte % (Auto) 0.5, Neutrophils (%) (Auto) 82.9H, Lymphocytes (%) (Auto) 6.5L, Monocytes (%) (Auto) 8.0H, Eosinophils (%) (Auto) 0.7, Basophils (%) (Auto) 1.4H, Neutrophils # (Auto) 4.9, Lymphocytes # (Auto) 0.4L, Monocytes # (Auto) 0.5, Eosinophils # (Auto) 0.0, Basophils # (Auto) 0.1, Nucleated Red Blood Cells % (auto) 0.0, Prothrombin Time 13.3, Prothromb Time International Ratio 0.99, Procalcitonin 0.13 08/05/20 07:37: Blood Gas Bicarbonate Standard 18.7, Venous Blood pH 7.226L, Venous Blood Partial Pressure CO2 52.9H, Venous Blood Partial Pressure O2 43.4, Venous Blood Total Carbon Dioxide 23.1L, Venous Blood HCO3 21.5L, Venous Blood Oxygen Saturation 71.6, Venous Blood Base Excess -6.5L, Anion Gap 18H, Glomerular Filtration Rate > 60.0, Lactic Acid Level 2.0, Calcium Level 9.1, Total Bilirubin 1.1H, Direct Bilirubin 0.4H, Aspartate Amino Transf (AST/SGOT) 23, Alanine Aminotransferase (ALT/SGPT) 16, Alkaline Phosphatase 252H, Total Creatine Kinase 38, Creatine Kinase MB 1.7, Creatine Kinase MB Relative Index 4.47H, Troponin I < 0.02, SD-Ejz-E-Type Natriuretic Peptide 337H, Total Protein 6.1L, Albumin 3.0L, Albumin/Globulin Ratio 1.0L, Thyroid Stimulating Hormone (TS H) 0.823 08/05/20 08:26: Blood Gas Bicarbonate Standard 20.8L, Arterial Blood pH 7.353, Arterial Blood Partial Pressure CO2 38.0, Arterial Blood Partial Pressure O2 77.7, Arterial Blood Total CO2 21.8L, Arterial Blood HCO3 20.7L, Arterial Blood Base Excess - 4.4L, Arterial Blood Oxygen Saturation 95.6 CBC/BMP Laboratory Tests 08/05/20 07:36 08/05/20 07:37 Microbiology Microbiology 08/05/20 Respiratory Virus Panel (PCR) (SAL) - Final, Complete 08/05/20 Blood Culture, Received Pending 08/05/20 Blood Culture, Received Pending Home Medications Scheduled Empagliflozin (Jardiance) 10 Mg Tablet, 10 MG PO DAILY Ferrous Sulfate (Ferosul) 325 Mg Tablet, 325 MG PO DAILY DUE TO INCREASE TO 2 TABS ANYTIME Levalbuterol HCl (Levalbuterol HCl) 0.63 Mg/3 Ml Vial.neb, 0.63 MG INH QID Lovastatin (Lovastatin) 20 Mg Tablet, 20 MG PO QPM Metoprolol Succinate (Metoprolol Succinate) 50 Mg Tab.er.24h, 25 MG PO DAILY Pantoprazole Sodium (Pantoprazole Sodium) 40 Mg Tablet.dr, 40 MG PO DAILY Semaglutide (Ozempic) 0.25 Mg/0.2 Ml Pen.injctr, 0.5 MG SC QWEEK MONDAY Vilazodone HCl (Viibryd) 40 Mg Tablet, 40 MG PO DAILY Scheduled PRN Calcipotriene (Calcipotriene) 0.005% Oint...g., 1 DOSE TOP BID PRN for PSORIASIS Allergies Coded Allergies: citalopram (Verified Adverse Reaction, Severe, jittery, 05/12/20) metformin (Verified Adverse Reaction, Severe, nausea, vomiting, 05/12/20) erythromycin base (Verified Adverse Reaction, Intermediate, vomiting, 04/20/20) azithromycin (Verified Adverse Reaction, Unknown, vomiting, 05/12/20) mirtazapine (Verified Adverse Reaction, Unknown, insomnia, 05/12/20) A-FIB/CHADSVASC A-FIB History Current/History of A-Fib/PAF?: No Current PO Anticoag Therapy: No Age/Risk Factor Scoring CHADSVASC: CHADSVASC Response (Comments) Value Age Risk Factor Age 65-74 years old 1 Gender Risk Factor Female 1 Hx of CHF No 0 Hx of HTN Yes 1 Hx of Stroke/TIA/or VTE No 0 Hx of Diabetes Yes 1 Hx of Vascular Disease No 0 Total 4 Treatment Treatment ordered: Other Other anticoagulant ordered: Arlette Self MD Aug 05, 2020 12:06
[2020-08-05] MEDS ORDERED: GLUCAGON INJ 1MG VIAL SC PRN (12:15)
[2020-08-05] MEDS ORDERED: CALCIPOTRIENE CREAM 0.005% 60GM TOP PRN (12:15)
[2020-08-05] MEDS ORDERED: DEXTROSE 50% 50 ML SYRINGE IV PRN (12:15)
[2020-08-05] MEDS ORDERED: GLUCOSE 4GM CHEW TABLET PO PRN (12:15)
--- OUTSIDE RECORDS SUMMARY | 2020-08-05 12:15 | CCD ---
Author Author [facility] Organization [facility] Address Unknown Phone Unavailable Care Team Providers Care Transit Specialist Name Role Phone Gibson, Marina PA Unavailable [...] Unavailable Unavailable LyndaCandy santiago MD Unavailable Unavailable LyndaCnady santiago MD Unavailable Unavailable LyndaCandy santiago MD Unavailable Unavailable LyndaCandy santiago MD Unavailable Unavailable LyndaCandy santiago MD Unavailable Unavailable LyndaCandy santiago MD Unavailable Unavailable LyndaCandy santiago MD Unavailable Unavailable LyndaCandy santiago MD Unavailable Unavailable LyndaCandy santiago MD Unavailable Unavailable LyndaCandy santiago MD Unavailable Unavailable LyndaCandy santiago MD Unavailable Unavailable LyndaCandy santiago MD Unavailable Unavailable LyndaCnady santiago MD Unavailable Unavailable LyndaCandy santiago MD [...] is protected by Article 27-F of the [place] [employer] law. If you continue you may have access to information: Regarding HIV / AIDS; Provided by facilities licensed or operated by the [place] [facility] Office of Mental Health; or Provided by the [facility] Office for People With Developmental Disabilities. If such information is present, then the following [facility] mandated warning applies: This information has been [...] trazodone hydrochloride traZODone HCl night sweats Active [place] ([facility]) Drug intolerance Albuterol Sulfate Powder Albuterol Sulfate trem ors and anxiety. Better with Xopenex Active [place] [facility] Family History Family Member Name Family Member Gender Family Member Status Date o f Status Description Data Source(s) Unknown Female Problem [facility] ([facility]) Encounters Encounter Providers Location Date Indications Data Source(s ) Outpatient<td ID="encounterTypeDescripti onID0">[facility] phone call- NO CHARGE</td><td>Matt Huynh MD</td><td></td><td>07/06/2020</td><td>5:40PM</td><td>11:59PM</td><td></td> Attender: Matt Huynh MD 07/06/2020 05:40:00 PM ES T - 07/06/2020 11:59:00 PM [facility] ([facility]) Outpatient<td ID="encounterTypeDescripti onID1">Transitional Care Management HIGH complexity</td><td>[facility]td[facility]td[facility]07/06/2020</td><td>10:00AM</td><td>10:55AM</td><td></td> Attender: Matt Huynh MD [facility] 07/06/2020 10:00:00 AM EST - 07/06/2020 10:55:00 AM EST [place] ([facility]) Outpatient<td ID="encounterTypeDescripti onID2">[Patient Encounter]</td><td>Matt Huynh MD</td><td></td><td>07/01/2020</td><td>06/27/2020 4:09PM</td><td>06/27/2020 11:59PM</td><td></td> Attender: Matt Huynh MD 0 04:09:00 PM EST - 06/27/2020 11:59:00 PM EST [place] ([facility]) Outpatient<td ID="encounterTypeDescripti onID3">sick visit</td><td>Matt Huynh MD</td><td>[facility]</td><td>06/27/2020</td><td>10:42AM</td><td>11:15AM</td><td><content ID="encounterDiagnosisID3-0">Generalized Anxiety Disorder</content>, <content ID="encounterDiagnosisID3-1">Panic Disorder Without Agoraphobia</content></td> Attender: Matt Huynh MD [facility] 06/27/2020 10:42:00 AM EST - 06/27/2020 11:15:00 AM EST Panic Disorder Without AgoraphobiaGeneralized Anxiety DisorderPanic Disorder Without AgoraphobiaGeneralized Anxiety Disorder [place] ([facility]) Panic Disorder Without Agoraphobia Generalized Anxiety Disorder Panic Disorder Without Agoraphobia Generalized Anxiety Disorder Outpatient<td ID="encounterTypeDescripti onID4">Transitional Care Management HIGH complexity</td><td>Matt Huynh MD</td><td>[facility]</td><td>06/11/2020</td><td>4:16PM</td> <td>5:12PM</td><td><content ID="encounterDiagnosisID4-0">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</content>, <content ID="encounterDiagnosisID4- 1">Tachycardia Supraventricular</content>, <content ID="encounterDiagnosisID4- 2">Major Depression Chronic</content>, <content ID="encounterDiagnosisID4- 3">Adjustment Disorder with Anxiety</content></td> Attender: Matt Huynh MD [facility], [facility] 06/11/2020 04:16:00 PM EST - 06/11/2020 05:12:00 PM EST Adjustment Disorder with AnxietyAdjustme nt Disorder with AnxietyAdjustment Disorder with Anxiety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Tachycardia SupraventricularTachycardia SupraventricularTachycardia SupraventricularMajor Depression ChronicMajor Depression ChronicMajor Depression Chronic [place] ([facility]) Adjustment Disorder with Anxiety Adjustment Disorder with Anxiety Adjustment Disorder with Anxiety 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 Tachycardia Supraventricular Tachycardia Supraventricular Tachycardia Supraventricular Major Depression Chronic Major Depression Chronic Major Depression Chronic Outpatient Attender: Alfonso Bradford/Yun/Twin/Heidy welsh 05/28/2020 09:45:00 AM EST [facility] ([facility], ) Outpatient<td ID="encounterTypeDescripti onID5">[facility] phone call- NO CHARGE</td><td>Matt Huynh MD</td><td></td><td>06/11/2020</td><td>05/19/2020 4:00PM</td><td>05/19/2020 11:59PM</td><td></td> Attender: Matt Huynh MD 0 04:00:00 PM EST - 05/19/2020 11:59:00 PM EST [facility] hospital[facility] Outpatient<td ID="encounterTypeDescripti onID6">Transitional Care Management [facility] complexity</td><td>Matt Huynh MD</td><td>[facility], [facility]</td><td>05/19/2020</td><td>1:24PM</td> <td>2:47PM</td><td><content ID="encounterDiagnosisID6-0">Lung Neoplasm Adenocarcinoma Metastatic To</content>, <content ID="encounterDiagnosisID6-1"> Diabetes Mellitus Type 2 - Uncomplicated, Controlled By Insulin</content></td> Attender: Matt Huynh MD [facility], [facility] 05/19/2020 01:24:00 PM EST - 05/19/2020 02:47:00 [...] Type 2 - Uncomplicated, Controlled By Insulin [place] ([facility]) Lung Neoplasm Adenocarcinoma Metastatic To Lung Neoplasm [...] Terrell MD 05/05/2020 05:37:00 PM EDT C43.11 [facility] C43.11 Outpatient Attender: Jannet Bradford/Yun/Twin/Garret ndcandy 04/28/2020 02:30:00 PM EDT [facility] ([facility] Outpatient Attender: Jannet Bradford/Yun/Twin/Garret milligan 04/10/2020 09:30:00 AM EDT [facility] ([facility]) Outpatient<td ID="encounterTypeDescripti onID7">[facility] phone call- NO CHARGE</td><td>Matt Huynh MD</td><td></td><td>05/19/2020</td><td>04/07/2020 11:49AM</td><td>04/07/2020 11:59PM</td><td></td> Attender: Matt Huynh MD 0 11:49:00 AM EDT - 04/07/2020 11:59:00 PM EDT [place] ([facility]) Outpatient<td ID="encounterTypeDescripti onID8">followup</td><td>Marina Gibson RPA</td><td>[facility], [facility]</td><td>04/07/2020</td><td>8:53AM</td><td>9:33AM</td><td><content ID="encounterDiagnosisID8-0">Pneumonia</content></td> Attender: Marina KIM [facility] 04/07/2020 08:53:00 A M EDT - 04/07/2020 09:33:00 AM EDT PneumoniaPneumoniaPneumoniaPneumoniaPneumoniaPneumonia Pneumonia [place] ([facility]) Pneumonia Pneumonia Pneumonia Pneumonia Pneumonia Pneumonia Pneumonia Outpatient Attender: Marina KIM 04/02/2020 02: 00:00 PM EDT F/U RIGHT SIDED PLEURAL EFFUSION [facility] F/U RIGHT SIDED PLEURAL EFFUSION Outpatient Attender: Marina KIM 03/31/2020 04:31:00 PM EDT PNEUMONIA [facility] PNEUMONIA Outpatient<td ID="encounterTypeDescripti onID9">[Patient Encounter]</td><td>Marina Gibson RPA</td><td></td><td>04/01/2020</td><td>03/02/2020 4:11PM</td><td>03/02/2020 11:59PM</td><td></td> Attender: Marina KIM 03/02/2020 04:11:00 PM EDT - 03/02/2020 11:59:00 PM EDT [place] ([facility]) Outpatient<td ID="encounterTypeDescripti onID10">sick visit</td><td>Marina Gibson RPA</td><td>[facility]</td><td>03/02/2020</td><td>3:29PM</td><td>4:03PM</td><td><content ID="[id number]">Pneumonia</content></td> Attender: Marina KIM [facility] 03/02/2020 03:29:00 P M EDT - 03/02/2020 04:03:00 PM EDT PneumoniaPneumoniaPneumoniaPneumoniaPneumoniaPneumoniaPneumoniaPneumonia [place] ([facility]) Pneumonia Pneumonia Pneumonia Pneumonia Pneumonia Pneumonia Pneumonia Pneumonia Outpatient Attender: Marina KIM 03/02/2020 01:22:00 PM EDT R05 [facility] R05 Outpatient<td ID="encounterTypeDescripti onID12">sick visit</td><td>Marina Gibson RPA</td><td>[facility]</td><td>12/19/2019</td><td>2:02PM</td><td>3:09PM</td><td><content ID="[id number]">Shoulder Strain Deltoid Muscle</content>, <content ID="vpneimcybKyijzouqlGB69-6">Pneumonia</content></td> Attender: Marina KIM [facility] 12/19/2019 02:02:00 P M EDT - 12/19/2019 03:09:00 PM EDT PneumoniaShoulder Strain Deltoid MuscleP neumoniaShoulder Strain Deltoid MusclePneumoniaShoulder Strain Deltoid MusclePneumoniaShoulder Strain Deltoid MusclePneumoniaShoulder Strain Deltoid MusclePneumoniaShoulder Strain Deltoid MusclePneumoniaShoulder Strain Deltoid MusclePneumoniaShoulder Strain Deltoid MusclePneumoniaShoulder Strain Deltoid Muscle [place] ([facility]) Pneumonia Shoulder Strain Deltoid Muscle Pneumonia Shoulder [...] AM EDT - 12/19/2019 11:59:00 PM EDT [place] ([facility]) Outpatient Attender: Marina KIM 12/05/2019 09:36:00 AM EDT [facility] Outpatient<td ID="encounterTypeDescripti onID13">incident to previous visit- </td><td>Marina Gibson RPA</td><td>[facility], [facility]</td><td>12/05/2019</td><td>8:12AM</td><td>9:16AM</td><td><content ID="[id number]">Pneumonia Right Middle Zone</content>, <content ID="knqvhmbimMokxhocznQN12-6">Diabetes Mellitus Type 2 - Uncomplicated, Uncontrolled</content>, <content ID="qnbqujcjrVgkwurdtvDL12-2">Major Depression Chronic</content></td> Attender: Marina KIM [facility] 12/05/2019 08:12:00 AM EDT - 12/05/2019 [...] Mellitus Type 2 - Uncomplicated, Uncontrolled [place] ([facility]) Pneumonia Right Middle Zone Pneumonia Right Middle [...] Outpatient<td ID="encounterTypeDescripti onID14">sick visit</td><td>Marina Gibson [facility]</td><td>[facility], [facility]</td><td>10/14/2019</td><td>1:28PM</td><td>1:58PM</td><td><content ID="[id number]">Acute Bronchitis</content></td> Attender: Marina KIM [facility] 10/14/2019 01:28:00 P M EDT - 10/14/2019 01:58:00 PM EDT Acute BronchitisAcute BronchitisAcute Br onchitisAcute BronchitisAcute BronchitisAcute BronchitisAcute BronchitisAcute BronchitisAcute BronchitisAcute BronchitisAcute Bronchitis [place] ([facility]) Acute Bronchitis Acute Bronchitis Acute Bronchitis Acute Bronchitis Acute Bronchitis Acute Bronchitis Acute Bronchitis Acute Bronchitis Acute Bronchitis Acute Bronchitis Acute Bronchitis Outpatient<td ID="encounterTypeDescripti onID15">[Patient Encounter]</td><td>Matt Huynh MD</td><td></td><td>09/23/2019</td><td>07/01/2019 4:54PM</td><td>07/01/2019 11:59PM</td><td></td> Attender: Matt Huynh MD 0 04:54:00 PM EDT - 07/01/2019 11:59:00 PM EST [place] ([facility]) Outpatient Attender: Matt Huynh MD 07/11/2019 04:51:0 0 PM EST SCREENING [facility] SCREENING Outpatient<td ID="encounterTypeDescripti onID13">ANNUAL PE-followup exam/30</td><td>Matt Huynh MD</td><td>[facility], [facility]</td><td>07/01/2019</td><td>10:12AM</td><td>11:19AM</td><td><content ID="oagvlvlyoGlkytlubhRV40-6">Routine History and Physical Senior Citizen (65-80 Yrs)</content>, <content ID="yglcenghuBegvjzbtsLV24-0">Diabetes Mellitus Type 2 - Uncomplicated, Uncontrolled</content>, <content ID="laxxbxwtrNtzxklvkxDW14- 2">Essential Hypertension</content>, <content ID="zqxemaficExiqcgjfyRE66-8"> Obesity Morbid Due To Excess Calories</content>, <content ID="zdbwljzleAqzqqemulDT11-8">Major Depression Chronic</content></td> Attender: Matt Huynh MD [facility] 07/01/2019 10:12:00 A M EST - [...] Depression ChronicMajor Depression ChronicMajor Depression ChronicMajor Depression [facility] ([facility]) Obesity Morbid Due To Excess Calories Essential [...] Uncontrolled Routine History and Physical Senior [place] mraino (65-80 Yrs) Obesity Morbid Due To Excess [...] Uncontrolled Routine History and Physical Senior [facility] marino (65-80 Yrs) Obesity Morbid Due To Excess Calories Essential Hypertension Diabetes Mellitus Type 2 - Uncomplicated , Uncontrolled Routine History and Physical Senior [facility] marino (65-80 Yrs) Major Depression Chronic Major Depression Chronic Major Depression Chronic Major Depression Chronic Major Depression Chronic Major Depression Chronic Major Depression Chronic Major Depression Chronic Major Depression Chronic Major Depression Chronic Major Depression Chronic Outpatient<td ID="encounterTypeDescripti onID14">[Patient Encounter]</td><td>Matt Huynh MD</td><td></td><td>07/01/2019</td><td>12/24/2018 8:40AM</td><td>12/24/2018 11:59PM</td><td></td> Attender: Matt Huynh MD 9 08:40:00 AM EST - 12/24/2018 11:59:00 PM EDT [place] ([facility]) Immunizations Vaccine Date Status Description Data Source(s) Pneumococcal conjugate PCV 13 07/01/2019 11:25:00 AM EST completed P [id number] 1 07/01/2019 Right Deltoid Complete (Administered) [facility] ([facility]) IIV3. This is one of two codes replacing CVX 15, which is being retired. 07/01/2019 11:25:00 AM EST completed Influenza, seasonal, injectable 5 07/01/2019 Left Deltoid Complete (Administered) [facility] [place] ([facility]) Medications Medication Brand Name Start Date Product Form Dose Route Admi nistrative Instructions Pharmacy Instructions Status Indications Reaction Description Data Source(s) Clobetasol Propionate 0.0005 MG/MG Topic al Ointment Clobetasol Propionate 0.05% External Ointment Clobetasol Propionate 0.05% External Ointment 07/01/20 12:00:00 AM EST 1 active clobetasol propionate 0.0005 MG/MG Topical Ointment [place] ([facility]) calcipotriene 0.16048 MG/MG Topical Oint ment [Calcitrene] Calcitrene 0.005% External Ointment Calcitrene 0.005% External Ointment 07/01/2020 12:00:0 0 AM EST 1 active calcipotriene 0.0 0005 MG/MG Topical Ointment [Calcitrene] [place] ([facility]) doxycycline hyclate 100 MG Oral Tablet Doxycycline Hyc late 100 MG Oral Tablet Doxycycline Hyclate 100 MG Oral Tablet 07/01/2020 12:00:00 AM EST 2 active doxycycline hyclate 100 MG Oral Tablet [place] ([facility]) cefdinir 300 MG Oral Capsule Cefdinir 300 MG Oral Caps ule Cefdinir 300 MG Oral Capsule 07/01/2020 12:00:00 AM EST 1 active cefdinir 300 MG Oral Capsule [facility]) Prednisone 10 MG Oral Tablet predniSONE 10 MG Oral Tab let predniSONE 10 MG Oral Tablet 07/01/2020 12:00:00 AM EST active prednisone 10 MG Oral Tablet [facility]) Lorazepam 0.5 MG Oral Tablet LORazepam 0.5 MG Oral Tab let LORazepam 0.5 MG Oral Tablet 06/27/2020 12:00:00 AM EST active lorazepam 0.5 MG Oral Tablet [place] ([facility]) Trazodone Hydrochloride 50 MG Oral Tablet traZODone HC l 50 MG Oral Tablet traZODone HCl 50 MG Oral Tablet 06/27/2020 12:00:00 AM EST 1 aborted trazodone hydrochloride 50 MG Oral Tablet [place] ([facility]) Levalbuterol 0.21 MG/ML Inhalant Solutio n Levalbuterol HCl 0.63 MG/3ML Inhalation Nebulization solution Levalbuterol HCl 0.63 MG/3ML Inhalation Nebulization solution 06/20/2020 12:00:00 AM EST 1 active levalbuterol 0.21 MG/ML Inhalation Solution [place] ([facility]) Accu-Chek FastClix Lancets Miscellaneous Accu-Chek Fas tClix Lancets Miscellaneous 06/19/2020 12:00:00 AM EST acti ve Accu-Chek FastClix Lancets [place] ([facility]) OneTouch Verio In Vitro Strip OneTouch Verio In Vitro Strip 06/19/2020 12:00:00 AM EST aborted [facility] OneTouch Delica Lancets 33G Miscellaneous OneTouch Del ica Lancets 33G [facility] 06/19/2020 12:00:00 AM EST abor evangelina OneTouch Delica Lancets 33G [place] ([facility]) Accu-Chek Guide In Vitro Strip Accu-Chek Guide In Vitro Stri p 06/19/2020 12:00:00 AM EST active Accu-Shannan k Guide [place] ([facility]) OneTouch Verio Flex System w/Device Kit OneTouch Verio Flex System w/Device Kit 06/19/2020 12:00:00 AM EST aborted OneTouch Verio Flex System [place] ([facility]) Accu-Chek Guide w/Device Kit Accu-Chek Guide w/Device Kit 12:00:00 AM EST active Accu-Chek Guide [facility] ([facility]) Lorazepam 0.5 MG Oral Tablet LORazepam 0.5 MG Oral Tab let LORazepam 0.5 MG Oral Tablet 06/11/2020 12:00:00 AM EST aborted lorazepam 0.5 MG Oral Tablet [place] ([facility]) 200 ACTUAT Albuterol 0.09 MG/ACTUAT Metered Dose Inhal er [Ventolin] Ventolin HFA 05/28/2020 12:00:00 AM EST RESPIRATORY active [facility] ([facility] ) Levalbuterol 0.21 MG/ML Inhalant Solution Levalbuterol HCL active [facility] ([facility]) Prednisone 10 MG Oral Tablet Prednisone 04/28/2020 12:00:00 AM EDT active [facility] ([facility], ) Prednisone 20 MG Oral Tablet Prednisone 04/23/2020 12:00:00 AM EDT ORAL completed [facility] ([facility], ) Prednisone 10 MG Oral Tablet Prednisone 04/13/2020 12:00:00 AM EDT ORAL completed [facility] ([facility], ) Levalbuterol 0.21 MG/ML Inhalant Solution Levalbuterol HCL 04/10/2020 12:00:00 AM EDT active [facility] ([facility] ) Prednisone 20 MG Oral Tablet predniSONE 20 MG Oral Tab let predniSONE 20 MG Oral Tablet 04/07/2020 12:00:00 AM EDT 2 aborted prednisone 20 MG Oral Tablet [facility]) Azithromycin 250 MG Oral Tablet Azithromycin 250 MG Oral Tab let 04/07/2020 12:00:00 AM EDT aborted azithro mycin 250 MG Oral Tablet [place] ([facility]) 30 ACTUAT fluticasone furoate 0.1 MG/ACT UAT / vilanterol 0.025 MG/ACTUAT Dry Powder Inhaler [Breo] Breo Ellipta 100-25 MCG/INH Inhalation Aerosol Powder Breath Activated Breo Ellipta 100-25 MCG/INH Inhalation A erosol Powder Breath Activated 03/02/2020 12:00:00 AM EDT 1 complete d 30 ACTUAT fluticasone furoate 0.1 MG/ACTUAT / vilanterol 0.025 MG/ACTUAT Dry Powder Inhaler [Breo] [place] ([facility]) Levofloxacin 500 MG Oral Tablet [Levaquin] Levaquin 50 0 MG Oral Tablet Levaquin 500 MG Oral Tablet 03/02/2020 12:00:00 AM EDT 1 aborted levofloxacin 500 MG Oral Tablet [Levaquin] [facility]) Basaglar KwikPen 100 UNIT/ML Subcutaneous Solution Pen -injector Basaglar KwikPen 100 UNIT/ML Subcutaneous Solution Pen-injector 02/11/2020 12:00:00 AM EDT active Sensor 3 ML insulin glargine 100 UNT/ML Pen Injector [Basaglar] [facility]) 24 HR metoprolol succinate 50 MG Extende d Release Oral Tablet Metoprolol Succinate ER 50 MG Oral Tablet Extended Release 24 Hour Metoprolol Succinate ER 50 MG Oral Tablet Extended Release 24 Hour 02/05/2020 12:00:00 AM EDT 1 active 24 HR metoprolol succinate 50 MG Extended Release Oral Tablet [place] ([facility]) empagliflozin 10 MG Oral Tablet [Jardiance] Jardiance 10 MG Oral Tablet Jardiance 10 MG Oral Tablet 02/05/2020 12:00:00 AM EDT 1 active empagliflozin 10 MG Oral Tablet [Jardiance] [place] ([facility]) BD Pen Needle Isabel U/F 32G X 4 MM Miscellaneous BD Pen Needle Isabel U/F 32G X 4 MM Miscellaneous 01/24/2020 12:00:00 AM EDT a ctive BD Pen Needle Isabel U/F [place] ([facility]) Enalapril Maleate 5 MG Oral Tablet Enalapril Maleate 5 MG Or al Tablet 01/20/2020 12:00:00 AM EDT 1 aborted enalap ril maleate 5 MG Oral Tablet [place] ([facility]) Hydrochlorothiazide 12.5 MG Oral Tablet hydroCHLOROthi azide 12.5 MG Oral Tablet hydroCHLOROthiazide 12.5 MG Oral Tablet 01/20/2020 12:00:00 AM EDT 1 aborted hydrochlorothiazide 12.5 MG Oral Tablet [place] ([facility]) Medrol 4 MG Oral Tablet Therapy Pack Medrol 4 MG Oral Tablet Therapy Pack 12/19/2019 12:00:00 AM EDT aborted {21 (methylprednisolone 4 MG Oral Tablet [Medrol]) } Pack [Medrol Dosepak] [place] ([facility]) 30 ACTUAT fluticasone furoate 0.1 MG/ACT UAT / vilanterol 0.025 MG/ACTUAT Dry Powder Inhaler [Breo] Breo Ellipta 100-25 MCG/INH Inhalation Aerosol Powder Breath Activated Breo Ellipta 100-25 MCG/INH Inhalation A erosol Powder Breath Activated 12/05/2019 12:00:00 AM EDT 1 complete d 30 ACTUAT fluticasone furoate 0.1 MG/ACTUAT / vilanterol 0.025 MG/ACTUAT Dry Powder Inhaler [Breo] [place] ([facility]) Levofloxacin 500 MG Oral Tablet [Levaquin] Levaquin 50 0 MG Oral Tablet Levaquin 500 MG Oral Tablet 12/05/2019 12:00:00 AM EDT 1 aborted levofloxacin 500 MG Oral Tablet [Levaquin] [facility]) vilazodone hydrochloride 40 MG Oral Tablet [Viibryd] V iibryd 40 MG Oral Tablet Viibryd 40 MG Oral Tablet 11/20/2019 12:00:00 AM EDT 1 active vilazodone hydrochloride 40 MG Oral Tablet [Viibryd] [facility]) Azithromycin 250 MG Oral Tablet Azithromycin 250 MG Oral Tab let 10/14/2019 12:00:00 AM EDT aborted azithro mycin 250 MG Oral Tablet [place] ([facility]) Ozempic (0.25 or 0.5 MG/DOSE) 2 MG/1.5ML Subcutaneous Solution Pen-injector Ozempic (0.25 or 0.5 MG/DOSE) 2 MG/1.5ML Subcutaneous Solution Pen-injector 09/26/2019 12:00:00 AM EDT active 0.25 MG, 0.5 MG Dose 1.5 ML semaglutide 1.34 MG/ML Pen Injector [Ozempic] [place] ([facility]) Lovastatin 20 MG Oral Tablet Lovastatin 20 MG Oral Tablet 12:00:00 AM EDT 1 active lovastatin 20 MG Oral Tablet [place] ([facility]) 3 ML liraglutide 6 MG/ML Pen Injector [V ictoza] Victoza 18 MG/3ML Subcutaneous Solution Pen-injector Victoza 18 MG/3ML Subcutaneous Solution Pen-injector 08/14/2019 12:00:00 AM EST aborted 3 ML liraglutide 6 MG/ML Pen Injector [Victoza] [place] ([facility]) Hydrochlorothiazide 12.5 MG Oral Tablet hydroCHLOROthi azide 12.5 MG Oral Tablet hydroCHLOROthiazide 12.5 MG Oral Tablet 07/29/2019 12:00:00 AM EST 1 aborted hydrochlorothiazide 12.5 MG Oral Tablet [facility]) Enalapril Maleate 5 MG Oral Tablet Enalapril Maleate 5 MG Or al Tablet 07/29/2019 12:00:00 AM EST 1 aborted enalap ril maleate 5 MG Oral Tablet [place] ([facility]) pantoprazole 40 MG Delayed Release Oral Tablet Pantoprazole Sodium 40MG Oral Tablet Delayed Release Pantoprazole Sodium 40MG Oral Tablet Delayed Release 07/01/2019 12:00:00 AM EST 1 active pantoprazole 40 MG Delayed Release Oral Tablet [place] ([facility]) Enalapril Maleate 5 MG / Hydrochlorothia zide 12.5 MG Oral Tablet Enalapril- hydroCHLOROthiazide 5-12.5MG Oral Tablet Enalapril-hydroCHLOROthiazide 5-12.5MG Oral Tablet 06/24/2019 12:00:00 AM EST 1 aborte d enalapril maleate 5 MG / hydrochlorothiazide 12.5 MG Oral Tablet [place] ([facility]) 3 ML liraglutide 6 MG/ML Pen Injector [V ictoza] Victoza 18MG/3ML Subcutaneous Solution Pen-injector Victoza 18MG/3ML Subcutaneous Solution Pen-injector 03/18/2019 12:00:00 AM EDT aborted 3 ML liraglutide 6 MG/ML Pen Injector [Victoza] [place] ([facility]) empagliflozin 10 MG Oral Tablet [Jardiance] Jardiance 10MG Oral Tablet Jardiance 10MG Oral Tablet 02/05/2019 12:00:00 AM EDT 1 aborted empagliflozin 10 MG Oral Tablet [Jardiance] [place] ([facility]) 24 HR metoprolol succinate 50 MG Extende d Release Oral Tablet Metoprolol Succinate ER 50MG Oral Tablet Extended Release 24 Hour Metoprolol Succinate ER 50MG Oral Tablet Extended Release 24 Hour 02/05/2019 12:00:00 AM EDT 1 aborted 24 HR metoprolol succinate 50 MG Extended Release Oral Tablet [place] ([facility]) Basaglar KwikPen 100UNIT/ML Subcutaneous Solution Pen- injector Basaglar KwikPen 100UNIT/ML Subcutaneous Solution Pen-injector 01/24/2019 12:00:00 AM EDT aborted Sensor 3 ML insulin glarg ine 100 UNT/ML Pen Injector [Basaglar] [place] ([facility]) vilazodone hydrochloride 40 MG Oral Tablet [Viibryd] V iibryd 40MG Oral Tablet Viibryd 40MG Oral Tablet 12/04/2018 12:00:00 AM EDT 1 aborted vilazodone hydrochloride 40 MG Oral Tablet [Viibryd] [place] ([facility]) Lovastatin 20 MG Oral Tablet Lovastatin 20MG Oral Tabl et Lovastatin 20MG Oral Tablet 09/24/2018 12:00:00 AM EDT 1 aborted lovastatin 20 MG Oral Tablet [place] ([facility]) pantoprazole 40 MG Delayed Release Oral Tablet Pantoprazole Sodium 40MG Oral Tablet Delayed Release Pantoprazole Sodium 40MG Oral Tablet Delayed Release 07/20/2018 12:00:00 AM EST 1 aborted pantoprazole 40 MG Delayed Release Oral Tablet [place] ([facility]) calcipotriene 0.75881 MG/MG Topical Oint ment [Calcitrene] Calcitrene 0.005% External Ointment Calcitrene 0.005% External Ointment 06/28/2018 12:00:0 0 AM EST 1 aborted calcipot riene 0.57401 MG/MG Topical Ointment [Calcitrene] [place] ([facility]) Clobetasol Propionate 0.0005 MG/MG Topic al Ointment Clobetasol Propionate 0.05% EX OINT Clobetasol Propionate 0.05% EX OINT 04/02/2018 12:00:00 AM EDT 1 aborted clobetasol propionate 0.0005 MG/MG Topical Ointment [place] ([facility]) 24 HR Bupropion Hydrochloride 150 MG Ext ended Release Oral Tablet buPROPion HCl ER (XL) 150 MG OR TB24 buPROPion HCl ER (XL) 150 MG OR TB24 02/28/2018 12:00: 00 AM EDT aborted 24 HR bu propion hydrochloride 150 MG Extended Release Oral Tablet [place] ([facility]) BD Pen Needle Isabel U/F 32G X 4 MM MISC BD Pen Needle Isabel U/ F 32G X 4 MM MISC 03/30/2016 12:00:00 AM EDT aborted BD Pen Needle Isabel U/F [place] ([facility]) Insurance Providers Payer name Policy type / Coverage type Policy ID Covered alliance party ID Covered alliance party's relationship to hernandez Policy Hernandez Plan Information [facility] [id number] MEDICARE [id number] [facility] [id number] S [id number] MEDICARE [id number] SP [id number] [facility] [id number] 2 [id number] SELF PAY ONLY [id number] SP [id number] [employer] [place] Other 0 Self 0 [employer] [place] Other 0 Self 0 [employer] [place] Other 0 Self 0 [employer] [place] Other 0 Self 0 [employer] [place] Other 0 Self 0 [employer] [place] Other 0 Self 0 [employer] Dependent BLUE CROSS OUT OF STATE [id number] Spouse [id number] HMO BLUE [id number] Patient [id number] [employer] Family Dependent BC/BS PPO/EPO (28) [id number] Problems, Conditions, and Diagnoses Code Display Name Description Problem Type Effective Dates Data Source(s) 300.01 Anxiety Disorder Due To Gen Medical Cond ition, Panic Attacks Anxiety Disorder Due To Gen Medical Condition, Panic Attacks Problem 1 08/28/2019 12:00:[facility] [id number] Anxiety Disord Due To Gen Medical Cond, Generalized Anxiety Anxiety Disord Due To Gen Medical Cond, Generalized Anxiety Problem 12:00:00 AM [employer] ([facility]) 300.01 Anxiety Disorder Due To Gen Medical Cond ition, Panic Attacks Anxiety Disorder Due To Gen Medical Condition, Panic Attacks Problem 1 08/28/2019 12:00:00 [facility] [id number] Anxiety Disord Due To Gen Medical Cond, Generalized Anxiety Anxiety Disord Due To Gen Medical Cond, Generalized Anxiety Problem 12:00:00 AM [employer] ([facility]) [id number] Non-small cell lung cancer (disorder) Susana ng Neoplasm Malignant (Non- small Cell) Stage IV Problem 05/30/2020 12:00:00 AM [employer] ([facility]) [id number] Non-small cell lung cancer (disorder) Susana ng Neoplasm Malignant (Non- small Cell) Stage IV Problem 05/30/2020 12:00:00 AM EST [place] ([facility]) [id number] Non-small cell lung cancer (disorder) Susana ng Neoplasm Malignant (Non- small Cell) Stage IV Problem 05/30/2020 12:00:00 AM EST [place] ([facility]) [id number] Non-small cell lung cancer (disorder) Susana ng Neoplasm Malignant (Non- small Cell) Stage IV Problem 05/30/2020 12:00:00 AM EST MLYES ([facility]) [id number] Non-small cell lung cancer (disorder) Susana ng Neoplasm Malignant (Non- small Cell) Stage IV Problem 05/30/2020 12:00:00 AM [employer] ([facility]) [id number] Obesity Morbid Due To Excess Calories Ob esity Morbid Due To Excess Calories Problem 07/01/2019 12:00:00 AM [facility] ([facility]) [id number] Obesity Morbid Due To Excess Calories Ob esity Morbid Due To Excess Calories Problem 07/01/2019 12:00:[facility] [id number] Obesity Morbid Due To Excess Calories Ob esity Morbid Due To Excess Calories Problem 07/01/2019 12:00:00 AM [employer] ([facility]) [id number] Obesity Morbid Due To Excess Calories Ob esity Morbid Due To Excess Calories Problem 07/01/2019 12:00:00 AM [employer] ([facility]) [id number] Obesity Morbid Due To Excess Calories Ob esity Morbid Due To Excess Calories Problem 07/01/2019 12:00:00 [facility] [id number] Obesity Morbid Due To Excess Calories Ob esity Morbid Due To Excess Calories Problem 07/01/2019 12:00:00 AM [employer] ([facility]) [id number] Obesity Morbid Due To Excess Calories Ob esity Morbid Due To Excess Calories Problem 07/01/2019 12:00:00 [facility] [id number] Obesity Morbid Due To Excess Calories Ob esity Morbid Due To Excess Calories Problem 07/01/2019 12:00:00 [facility] 278.01 Obesity Morbid Due To Excess Calories Ob esity Morbid Due To Excess Calories Problem 07/01/2019 12:00:00 AM [employer] ([facility]) 278.01 Obesity Morbid Due To Excess Calories Ob esity Morbid Due To Excess Calories Problem 07/01/2019 12:00:00 AM [facility] ([facility]) 278.01 Obesity Morbid Due To Excess Calories Ob esity Morbid Due To Excess Calories Problem 07/01/2019 12:00:00 AM [facility] ([facility]) 278.01 Obesity Morbid Due To Excess Calories Ob esity Morbid Due To Excess Calories Problem 07/01/2019 12:00:00 AM [facility] ([facility]) Surgeries/Procedures Procedure Description Date Indications Data Source(s) no charge procedure no charge procedure 06/11/2020 12:00:00 AM [facility] ([facility]) no charge procedure no charge procedure 06/11/2020 12:00:00 AM [facility] ([facility]) Medication Reconciliation Incentive Medication Reconciliatio n Incentive 06/11/2020 12:00:00 AM [facility] ([facility]) Venipuncture (routine) Venipuncture (routine) 05/22/2020 12:00:00 A M [facility] ([facility]) CBC CBC 05/22/2020 12:00:00 AM [facility] ([facility]) BMP-Basic Metabolic Profile BMP-Basic Metabolic Profile 05/10 12:00:00 AM [facility] ([facility]) no charge procedure no charge procedure 05/19/2020 12:00:00 AM [facility] ([facility]) Medication Reconciliation Incentive Medication Reconciliatio n Incentive 05/19/2020 12:00:00 AM Critical access hospital) Bronchoscopy W/Brushing Or Protected Brushings 12:00:00 AM EDT [facility] ([facility], ) Bronchoscopy W/Bronchial Alveolar Lavage 04/22/2020 12 :00:00 AM EDT [facility] ([facility], ) Bronchoscopy W/Biopsy 04/22/2020 12:00:00 AM EDT [facility] ([facility], ) Bronchoscopy, W/Transbronchial Needle Aspiration Biopsy Addl Lobe 04/22/2020 12:00:00 AM EDT [facility] ([facility], ) With Endobronchial Ultrasound Guided 04/22/2020 12:00: 00 AM EDT JO[place] ([facility], ) Airway Inhalation Treatment 04/10/2020 12:00:00 AM EDT [place] ([facility], ) -collection of capillary blood (fingerstick, heel ) -c ollection of capillary blood (fingerstick, heel ) 12/05/2019 12:00:00 AM EDSaulo COLIN ([facility]) HgbA1C HgbA1C 12/05/2019 12:00:00 AM EDT Minesh CROSS ([facility]) Venipuncture (routine) Venipuncture (routine) 07/01/2019 12:00:00 A M KAJAL BUENO ([facility]) HgbA1C HgbA1C 07/01/2019 12:00:00 AM [facility] Mircro Alb urine Mircro Alb urine 07/01/2019 12:00:00 AM Critical access hospital) CREATININE OTHER SOURCE Creatinine: URINE 07/01/2019 12:00:00 AM ES T [place] ([facility]) CBC CBC 07/01/2019 12:00:00 AM KAJAL Edge [facility] CMP-Complete Metabolic Profile CMP-Complete Metabolic Profil e 07/01/2019 12:00:00 AM [facility] ([facility]) Fasting Lipid Profile Fasting Lipid Profile 07/01/2019 12:00:00 AM [facility] ([facility]) Urinalysis-Lab processed Urinalysis-Lab processed 07/01/2019 12:00: 00 AM Critical access hospital) FLUZONE/ multi-dose ( 6mos -older) FLUZONE/ multi-dose ( 6mo s -older) 07/01/2019 12:00:00 AM [facility] ([facility]) IMADM PRQ ID SUBQ/IM NJXS 1 VACCINE ADMINISTRATION 1-IMMUNIZ ATION(adult) 07/01/2019 12:00:00 AM Critical access hospital) PREVNAR 13 -pneumococcal /otits media vaccine PREVNAR 13 -pneumococcal /otits media vaccine 07/01/2019 12:00:00 AM [facility] ([facility]) IMADM PRQ ID SUBQ/IM NJXS EA VACCINE ADMINISTRATION 2+ IMMUN IZATION (adult) 07/01/2019 12:00:00 AM EST [place] ([facility]) Brief Emotional Behavior Assessment (Distinct Seperate service-same day) Brief Emotional Behavior Assessment (Distinct Seperate service-same day) 07/01/2019 12:00:00 AM EST [facility] ([facility]) Results ID Date Data Source [id number] 06/30/2020 10:41:00 AM EST [facility] Name Value Range Interpretation Code Description Data Kylah rce(s) Supporting Document(s) SARS coronavirus 2 RNA [Presence] in Res piratory specimen by GARTH with probe detection [facility] This lab was ordered by [facility] a nd reported by [facility]. ID Date Data Source [id number] 05/22/2020 08:22:00 AM EST [place] ([facility]) Name Value Range Interpretation Code Description Data Kylah rce(s) Supporting Document(s) GRAN% 73.9 % GRAN% [place] ([facility]) Note: Responsible Observer: KM HCT 37.1 % HCT [place] ([facility]) Note: Responsible Observer: KM GRAN# 4.2 /mm3 GRAN# [place] ([facility]) Note: Responsible Observer: KM LY# 1.0 /mm3 Below low normal LY# [place] ([facility]) Note: Responsible Observer: KM HGB 12.3 g/dl HGB [place] ([facility]) Note: Responsible Observer: KM MCH 27.5 pg MCH [place] ([facility]) Note: Responsible Observer: KM LY% 17.3 % Below low normal LY% [place] ([facility]) Note: Responsible Observer: KM MID# 0.5 /mm3 MID# [place] ([facility]) Note: Responsible Observer: KM MCV 82.8 um3 MCV [place] ([facility]) Note: Responsible Observer: KM MCHC 33.2 G/DL MCHC [place] ([facility]) Note: Responsible Observer: KM MID% 8.7 % Above high normal MID% [place] ([facility]) Note: Responsible Observer: KM MPV 10.8 um3 MPV [place] ([facility]) Note: Responsible Observer: KM WBC 5.6 /mm3 WBC [place] ([facility]) Note: Responsible Observer: KM RBC 4.48 /mm3 RBC [place] ([facility]) Note: Responsible Observer: KM PLT 228 /mm3 PLT [place] ([facility]) Note: Responsible Observer: KM RDW 18.6 % Above high normal RDW [place] ([facility]) Note: Responsible Observer: KM ID Date Data Source [id number] 05/22/2020 08:22:00 AM EST [place] ([facility]) Name Value Range Interpretation Code Description Data Kylah rce(s) Supporting Document(s) Urea nitrogen [Moles/volume] in Blood 26 mg/dl Abo ve high normal Urea Nitrogen [place] ([facility]) Note: Responsible Observer: KM Calcium [Moles/volume] in Urine collected for unspecified durati on 8.7 mg/dl Calcium [place] ([facility]) Note: Responsible Observer: KM Creatinine [Moles/volume] in Vitreous fluid 1 mg/dl Creatinine [place] ([facility]) Note: Responsible Observer: KM Chloride [Moles/volume] in Serum, Plasma or Blood 102 mmol/L Chloride [place] ([facility]) Note: Responsible Observer: KM CO2 27 mmol/L CO2 [place] ([facility]) Note: Responsible Observer: KM EGFR - Non AF AM 55 N/A Above high normal EGFR - Non A F AM [place] ([facility]) Note: Responsible Observer: KM EGFR - AfricanAm > 60 N/A EGFR - AfricanAm [facility] Note: Responsible Observer: KM Potassium [Mass/volume] in Blood 3.6 mmol/L Pot assium [place] ([facility]) Note: Responsible Observer: KM Glucose [Mass/volume] in Urine collected for unspecified duratio n 148 mg/dl Above high normal Glucose [place] ([facility]) Note: Responsible Observer: KM Sodium [Moles/volume] in Serum, Plasma or Blood 136 mmol/L Sodium [place] ([facility]) Note: Responsible Observer: KM ID Date Data Source [id number] 05/12/2020 02:54:00 PM EST [facility] ([facility], ) Name Value Range Interpretation Code Description Data Kylah rce(s) Supporting Document(s) ABG pH (Arterial) 7.419 units 7.350-7.450 Normal (applie s to non-numeric results) [facility]) ABG Total Co2 24.7 meq/L 23.0-31.0 Normal (applies to non-numeric re sults) [facility]) ABG Partial Pressure O2 70.7 mmHg 75.0-100.0 Below low normal [facility]) ABG Partial Pressure Co2 37.3 mmHg 35.0-45.0 Normal (applies to non-numeric results) [facility]) ABG Hco3 23.6 meq/L 22.0-26.0 Normal (applies to non-numeric resul ts) [facility]) ABG Standard Hco3 24.0 meq/L 22.0-26.0 Normal (applies to non- numeric results) [facility]) ABG Base Excess -0.6 Normal (applies to non-numeric results) [facility]) ABG Site Laboratory test result Normal (applies to non-n umeric results) [facility]) ABG O2 Saturation 94.7 % 95.0-99.0 Below low normal M [facility]) ID Date Data Source [id number] 05/06/2020 08:03:00 AM EDT [facility] [address] [id number] [phone] NAME SEX PT STATUS ACCOUNT NUMBER [facility]ODY [facility] REG REF [id number] ORDERING PHYSICIAN LOCATION MEDICAL RECORD NO. Jannet Terrell MD RAD [id number] ATTENDING PHYSICIAN DATE OF DATE OF EXAM/TIME [...] Trans Dt/Tm: Trans by: DT Prt Dt/Tm: [id number]: Total DLP = 0.00 mGy-cm Fluoroscopy Time (in secs): Name Value Range Interpretation Code Description Data Kylah rce(s) Supporting Document(s) ID Date Data Source [id number] 04/22/2020 11:49:00 AM EDT [facility] ([facility], ) Name Value Range Interpretation Code Description Data Kylah rce(s) Supporting Document(s) Microscopic observation [Identifier] in Unspecified specimen by Non- gynecological cytology method Laboratory test result [facility] ([facility], ) SPECIMEN: Bronchial brushing (right upper lobe) Prepared slides and brush in vial received SPECIMEN ADEQUACY: Satisfactory for evaluation CATEGORIZATION: Atypical cytology DESCRIPTIONS: Scant atypical cells exhbiting variation in size and nuclei with prominent nucleoli in a background of brochial cells and blood elements. Please correlate with surgical case [id number]. COMMENTS: 04/23/2020 - [address](ASCP) 04/23/2020 1149 (Prelim) Signed JYOTSNA SIDDIQUI MD 04/23/2020 1555 ID Date Data Source [id number] 04/22/2020 11:48:00 AM EDT [facility] ([facility]) Name Value Range Interpretation Code Description Data Kylah rce(s) Supporting Document(s) Microscopic observation [Identifier] in Unspecified specimen by Non- gynecological cytology method Laboratory test result [facility] ([facility]) SPECIMEN: FNA Left hilar lymp h node Cytolyt and prepared slides received SPECIMEN ADEQUACY: Satisfactory for evaluation CATEGORIZATION: Positive for Malignancy DESCRIPTIONS: Scattered clusters small groups and single atypical cells noted exhbiting atypical nuclei with prominent single and multiple nucleoli. The background consists of bronchial cells, pulmonary macrophages, scattere lymphocytes and red blood cells. COMMENTS: Please correlate with surgical case [id number]. 04/23/2020 - [address](ASCP) 04/23/2020 1005 (Prelim) Signed JYOTSNA SIDDIQUI MD 04/23/2020 155 ID Date Data Source [id number] 04/22/2020 10:47:00 AM EDT [facility] ([facility]) Name Value Range Interpretation Code Description Data Kylah rce(s) Supporting Document(s) Surgical pathology study Laboratory test result [facility] ([facility]) FINAL DIAGNOSIS A - Lung, right upper [...] MD 04/24/2020 1115 ID Date Data Source [id number] 04/22/2020 10:47:00 AM EDT [facility] ([facility]) Name Value Range Interpretation Code Description Data Kylah rce(s) Supporting Document(s) Surgical pathology study Laboratory test result [facility] ([facility]) Addendum 3 Entered: 05/18/2020-1145 PD-L1 KEYTRUDA shows [...] MD 04/24/2020 1115 ID Date Data Source [id number] 04/22/2020 10:37:00 AM DAVONTE PINK ([facility]) Name Value Range Interpretation Code Description Data Kylah rce(s) Supporting Document(s) Microscopic observation [Identifier] in Unspecified specimen by Non- gynecological cytology method Laboratory test result [facility] ([facility]) SPECIMEN: Bronchoalveolar lav age (left upper lobe) 5ml [place] SPECIMEN ADEQUACY: Satisfactory for evaluation CATEGORIZATION: Positive for Malignancy DESCRIPTIONS: Scattered small groups of atypical cells exhibiting increased n/c ratios and muclei with prominent macronucleoli. The background consists of bronchial cells, scattered pulmonary macrophages and blood elements. COMMENTS: Please correlate with surgical case [id number]. 04/23/2020 - [address](ASCP) 04/23/2020 1116 (Prelim) Signed JYOTSNA SIDDIQUI MD 04/23/2020 1556 ID Date Data Source [id number] 04/22/2020 10:30:00 AM EDT [facility] ([facility]) Name Value Range Interpretation Code Description Data Kylah rce(s) Supporting Document(s) Microscopic observation [Identifier] in Unspecified specimen by Non- gynecological cytology method Laboratory test result [facility] ([facility]) will discuss at follow-up ID Date Data Source [id number] 04/22/2020 10:14:00 AM EDT [facility] ([facility]) Name Value Range Interpretation Code Description Data Kylah rce(s) Supporting Document(s) Bal Culture Laboratory test result Normal (applies to non- numeric results) [facility] ([facility]) FULL REPORT [facility] LAB NOTES ([facility] 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 Cultural examination is highly recommended for clinical diagnosis. AFB smear Kinyoun NEGATIVE (NO AFB Seen ) ID Date Data Source [id number] 04/22/2020 10:14:00 AM EDT [facility] ([facility]) Name Value Range Interpretation Code Description Data Kylah rce(s) Supporting Document(s) Color Laboratory test result Above high normal [facility] ([facility]) Source Laboratory test result Normal (applies to non-n umeric results) [facility] ([facility]) BRON ALVEOLAR LAVAGE Bal WBC 53 CELLS/uL 0-10 Above high normal [facility] ([facility]) Appearance Laboratory test result Above high normal [facility] ([facility]) ID Date Data Source [id number] 04/22/2020 10:14:00 AM EDT [facility] ([facility]) Name Value Range Interpretation Code Description Data Kylah rce(s) Supporting Document(s) Neutrophils, Bal 5 % Normal (applies to non-numeric results) [facility] ([facility]) Lymphocytes, Bal 25 % Normal (applies to non-numeric results) [facility] ([facility]) Monocytes/Macrophages, Bal 70 % Normal (applies to n on-numeric results) [facility] ([facility]) ID Date Data Source [id number] 04/22/2020 10:14:00 AM EDT [facility] ([facility]) Name Value Range Interpretation Code Description Data Kylah rce(s) Supporting Document(s) Afb Smear Laboratory test result [facility] ([facility]) Due to limited sensitivity, smear result s should be used as an adjunct in evaluating patient tuberculosis status. Cultural examination is highly recommended for clinical diagnosis. AFB smear Kinyoun NEGATIVE (NO AFB Seen ) Afb Culture Laboratory test result [facility] ([facility]) Testing performed at reference lab . Rep ort copy to follow on a separate form. 06/06/20 REF LAB#:[id number] FULL REPORT IN LAB NOTES (eCW and [facility]). No Acid-Fast Bacilli Isolated after 6 Weeks. ID Date Data Source [id number] 04/22/2020 10:14:00 AM EDT [facility] ([facility]) Name Value Range Interpretation Code Description Data Kylah rce(s) Supporting Document(s) Fungal Smear Laboratory test result [facility] ([facility]) Testing performed at reference lab . Rep ort copy to follow on a separate form. 06/06/20 REF LAB#:[id number] SIMA/Calcofluor preparatio No fungus observed. Fungal Culture Other Source Laboratory test result [facility] ([facility]) Testing performed at reference lab . Rep ort copy to follow on a separate form. 06/06/20 REF LAB#:[id number] FUNGUS CULTURE [facility] No Yeast or Mold Isolated after 4 weeks. ID Date Data Source [id number] 04/22[facility]2020 [facility] Name Value Range Interpretation Code Description Data Kylah rce(s) Supporting Document(s) Glucose [Mass/volume] in Capillary blood by Glucometer 168 mg/dL 80-115 Above high normal [facility] ([facility]) ID Date Data Source [id number] 04/22/2020 08:48[facility] Name Value Range Interpretation Code Description Data Kylah rce(s) Supporting Document(s) Glucose, Fasting 146 mg/dL 70-100 Above high normal [facility] ([facility]) Blood Urea Nitrogen 19 mg/dL 7-18 Above high normal [facility] ([facility]) Glomerular Filtration Rate 51.8 Normal (applies to n on-numeric results) [facility] ([facility]) <content>Units are mL/min/1.73 m2</content>
<content></content>
<content>Chronic Kidney Disease Staging per NKF:</content>
<content></content>
<content>Stage I & II GFR >=60 Normal to Mildly Decreased</content>
<content>Stage III GFR 30- 59 Moderately Decreased</content>
<content>Stage IV GFR 15-29 Severely Decreased</content>
<content>Stage V GFR <15 Very Little GFR Left</content>
<content>ESRD GFR <15 on FACILITIES MANAGER</content>
<content></content> Creatinine For GFR 1.12 mg/dL 0.55-1.30 Normal (applies to non -numeric results) [facility] ([facility], ) Potassium Serum 3.6 meq/L 3.5-5.1 Normal (applies to non-numeric results) [facility] ([facility], ) Sodium Level 138 meq/L 136-145 Normal (applies to non-numeric res ults) [facility] ([facility]) Carbon Dioxide Level 31 meq/L 21-32 Normal (applies to non-num nando results) [facility] ([facility], ) Anion Gap 6 meq/L 8-16 Below low normal [facility] ( [facility]) Chloride Level 101 meq/L 98-107 Normal (applies to non-numeric r esults) [facility] ([facility], ) Ast/Sgot 30 U/L 7-37 Normal (applies to non-numeric resul ts) [facility] ([facility], ) Calcium Level 9.3 mg/dL 8.8-10.2 Normal (applies to non-numeric re sults) [facility] ([facility], ) Alt/SGPT 31 U/L 12-78 Normal (applies to non-numeric resul ts) [facility] ([facility]) Total Protein 8.0 GM/DL 6.4-8.2 Normal (applies to non-numeric re sults) [facility] ([facility], ) Alkaline Phosphatase 213 U/L 45-117 Above high normal [facility] ([facility]) Bilirubin,Total 1.5 mg/dL 0.2-1.0 Above high normal [facility] ([facility], ) Albumin/Globulin Ratio 0.9 1.2-2.2 Below low normal [facility] ([facility], ) Albumin 3.7 GM/DL 3.2-5.2 Normal (applies to non-numeric resul ts) [facility] ([facility], ) ID Date Data Source [id number] 04/22/2020 08:48:00 AM EDT [facility] ([facility], ) Name Value Range Interpretation Code Description Data Kylah rce(s) Supporting Document(s) Red Blood Count 5.45 10 4.00-5.40 Above high normal [facility] ([facility], ) White Blood Count 11.7 10 4.0-10.0 Above high normal [facility] Hemoglobin 13.6 g/dL 12.0-15.5 Normal (applies to non-numeric resul ts) [facility] ([facility]) Hematocrit 45.3 % 36.0-47.0 Normal (applies to non-numeric resul ts) [facility] ([facility]) Mean Corpuscular Hemoglobin 25.0 pg 27.0-33.0 Below low normal [facility] ([facility]) Mean Corpuscular Volume 83.1 fl 80.0-96.0 Normal ( applies to non-numeric results) [facility] Red Cell Distribution Width 15.3 % 11.5-14.5 Above high normal [facility] ([facility]) Mean Corpuscular HGB Conc 30.0 g/dL 32.0-36.5 Below low normal [facility] Platelet Count, Automated 194 10 150-450 Normal (applies to non-numeric results) [facility] ([facility]) Rock % 8.9 % 0.0-5.0 Above high normal [facility] ([facility]) Neutrophils % 76.7 % 36.0-66.0 Above high normal [facility] ([facility]) Lymph % 11.2 % 24.0-44.0 Below low normal [facility] ( [facility]) Baso % 0.9 % 0.0-1.0 Normal (applies to non-numeric resul ts) [facility] ([facility]) Eos % 1.6 % 0.0-3.0 Normal (applies to non-numeric resul ts) [facility] ([facility]) Immature Granulocyte % 0.7 % 0-3.0 Normal (applies to non-n umeric results) [facility] ([facility]) Nucleated Red Blood Cell % 0.0 % 0-0 Normal (applies to n on-numeric results) [facility] ([facility]) Lymph # 1.3 10 1.5-5.0 Below low normal [facility] ( [facility]) Neutrophils # 9.0 10 1.5-8.5 Above high normal [facility] ([facility]) Eos # 0.2 10 0.0-0.5 Normal (applies to non-numeric resul ts) [facility] ([facility]) Baso # 0.1 10 0.0-0.2 Normal (applies to non-numeric resul ts) [facility] ([facility]) Rock # 1.0 10 0.0-0.8 Above high normal [facility] ([facility]) ID Date Data Source [id number] 04/22/2020 08:48:00 AM EDT [facility]) Name Value Range Interpretation Code Description Data Kylah rce(s) Supporting Document(s) Angiotensin converting enzyme [Enzymatic activity/volu me] in Serum or Plasma 38 U/L 14-82 Normal (applies to non-numeric results) [facility]) Performed at: RN - [facility] [place] [id number] Store Lead: Lily Weaver MD, Phone: [phone] ID Date Data Source [id number] 04/22/2020 08:48:00 AM EDT [facility]) Name Value Range Interpretation Code Description Data Kylah rce(s) Supporting Document(s) Prothrombin Time 13.0 s 12.5-14.3 Normal (applies to non-numeric results) [facility] ([facility]) Inr 0.96 Normal (applies to non-numeric resul ts) [facility]) THERAPUTIC HUMAN INR VALUES INDICATIONS NORMAL RANGES PROPHYLAXIS/TREATMENT OF: VENOUS THROMBOSIS 2.0-3.0 PULMONARY EMBOLISM 2.0-3.0 PREVENTION OF SYSTEMIC EMBOLISM FROM: TISSUE HEART VALVES 2.0-3.0 ACUTE MYOCARDIAL INFARCTION 2.0-3.0 VALVULAR HEART DISEASE 2.0-3.0 ATRIAL FIBRILLATION 2.0-3.0 MECHANICAL VALVES(HIGH RISK) 2.5-3.5 RECURRENT MYOCARDIAL INFARCTION 2.5-3.5 ID Date Data Source [id number] 04/17/2020 01:00:00 PM EDT [facility] Name Value Range Interpretation Code Description Data Kylah rce(s) Supporting Document(s) SARS coronavirus 2 RNA [facility] This lab was ordered by [facility] and reported by [facility]. ID Date Data Source [id number] 04/07/2020 09:24:00 AM EDT [facility] [address] [place] [address] [phone] NAME SEX PT STATUS ACCOUNT NUMBER CODY AMATO REG REF [id number] ORDERING PHYSICIAN LOCATION MEDICAL RECORD NO. Marina Gibson CT [id number] ATTENDING PHYSICIAN DATE OF DATE OF EXAM/TIME [...] rce(s) Supporting Document(s) ID Date Data Source [id number] 03/31/2020 04:43:00 PM EDT [facility] [address] [place] [id number] [phone] NAME SEX PT STATUS ACCOUNT NUMBER CODY AMATO REG REF [id number] ORDERING PHYSICIAN LOCATION MEDICAL RECORD NO. Marina Gibson [facility] [id number] ATTENDING PHYSICIAN DATE OF DATE OF EXAM/TIME Matt Huynh MD 1955 03/31/201641 TYPE / EXAM Xray Chest 2 view PA/LAT REASON FOR EXAM F/U RLL PNEUMONIA CODY AMATO [id number] 1955 ADDENDUM Critical findings were reported by [...] rce(s) Supporting Document(s) ID Date Data Source [id number] 03/03/2020 09:49:00 AM EDT [facility] [address] [place] [address] [phone] NAME SEX PT STATUS ACCOUNT NUMBER CODY AMATO REG REF [id number] ORDERING PHYSICIAN LOCATION MEDICAL RECORD NO. Marina Gibson [facility] [id number] ATTENDING PHYSICIAN DATE OF DATE OF EXAM/TIME [...] Trans Dt/Tm: Trans by: DT Prt Dt/Tm: [id number]: Total DLP = 0.00 mGy-cm Fluoroscopy Time (in secs): Name Value Range Interpretation Code Description Data Kylah rce(s) Supporting Document(s) ID Date Data Source [id number] 12/05/2019 10:08:00 AM EDT [facility] [address] [facility] [place] [address] [phone] NAME SEX PT STATUS ACCOUNT NUMBER CODY AMATO REG REF [id number] ORDERING PHYSICIAN LOCATION MEDICAL RECORD NO. Marina JUDY [facility] [id number] ATTENDING PHYSICIAN DATE OF DATE OF EXAM/TIME [...] Trans Dt/Tm: Trans by: DT Prt Dt/Tm: [id number]: Total DLP = 0.00 mGy-cm Fluoroscopy Time (in secs): Name Value Range Interpretation Code Description Data Kylah rce(s) Supporting Document(s) ID Date Data Source [id number] 12/05/2019 09:33:00 AM EDT [place] ([facility]) Name Value Range Interpretation Code Description Data Kylah rce(s) Supporting Document(s) Hemoglobin A1c/Hemoglobin.total in Blood 7.3 na Above high normal Hgba1c [place] ([facility]) Note: Responsible Observer: KM ID Date Data Source [id number] 07/14/2019 12:24:00 PM [facility] [address] [facility] [place] [address] [phone] NAME SEX PT STATUS ACCOUNT NUMBER CODY AMATO REG REF [id number] ORDERING PHYSICIAN LOCATION MEDICAL RECORD NO. Matt Huynh MD MAMMO [id number] ATTENDING PHYSICIAN DATE OF DATE OF EXAM/TIME [...] mammogram was read with the assistance of Sitemasher, an FDA- approved computer-aided detection system for [...] rce(s) Supporting Document(s) ID Date Data Source [id number] 07/01/2019 09:34:00 AM EST [place] ([facility]) Name Value Range Interpretation Code Description Data Kylah rce(s) Supporting Document(s) Hemoglobin A1c/Hemoglobin.total in Blood 8.0 na Above high normal Hgba1c [place] ([facility]) Note: Responsible Observer: AW ID Date Data Source [id number] 07/01/2019 09:34:00 AM EST [place] ([facility]) Name Value Range Interpretation Code Description Data Kylah rce(s) Supporting Document(s) Blood [Presence] in Urine by Visual Negative Brayan/uL BLOOD [place] ([facility]) Note: Responsible Observer: AW LEUK Negative Priscilla/uL LEUK [place] ([facility]) Note: Responsible Observer: AW Clarity of Pleural fluid from Fetus Clear N/A CLARITY [facility] ([facility]) Note: Responsible Observer: AW Ketones [Presence] in Blood by Tablet Negative N/A KETONES [place] ([facility]) Note: Responsible Observer: AW Color of Exudate from wound Yellow N/A COLOR [facility] ([facility]) Note: Responsible Observer: AW NITRITES Negative N/A NITRITES [facility] ([facility]) Note: Responsible Observer: AW Specific gravity of Pericardial fluid by Refractometry 1.020 N/A SPECIFIC GRAVITY [facility] ([facility]) Note: Responsible Observer: AW pH of Vaginal fluid by Test strip 7.0 N/A PH [place] ([facility]) Note: Responsible Observer: AW URINE BILI Negative N/A URINE BILI [facility] ([facility]) Note: Responsible Observer: AW URINE GLUCOSE >=1000 mg/dL URINE GLUCOSE [facility] ([facility]) Note: Responsible Observer: AW Urobilinogen [Presence] in Urine by Automated test strip 1.0 EU/dL UROBILINOGEN [place] ([facility]) Note: Responsible Observer: AW URINE PROTEIN Negative mg/dL URINE PROTEIN [facility] ([facility]) Note: Responsible Observer: AW ID Date Data Source [id number] 07/01/2019 09:34:00 AM EST [place] ([facility]) Name Value Range Interpretation Code Description Data Kylah rce(s) Supporting Document(s) Cholesterol [Moles/volume] in Pericardial fluid 172 mg/dl Cholesterol [place] ([facility]) Note: Responsible Observer: AW HDL 43 mg/dl HDL [facility] ([facility]) Note: Responsible Observer: AW Dir. LDL 64 mg/dl Dir. LDL [facility] ([facility]) Note: Responsible Observer: AW Triglycerides 169 mg/dl Above high normal Triglycerides [facility] ([facility]) Note: Responsible Observer: AW ID Date Data Source [id number] 07/01/2019 09:34:00 AM EST [place] ([facility]) Name Value Range Interpretation Code Description Data Kylah rce(s) Supporting Document(s) Alkaline Phos 179 IU/L Above high normal Alkaline Phos G [facility] ([facility]) Note: Responsible Observer: AW Albumin [Mass/volume] in Blood by Bromocresol purple ( BCP) dye binding method 4.2 g/dl Albumin [place] ([facility]) Note: Responsible Observer: AW ALT 16 IU/L ALT [facility] ([facility]) Note: Responsible Observer: AW AST 22 IU/L AST [facility] ([facility]) Note: Responsible Observer: AW Urea nitrogen [Moles/volume] in Blood 19 mg/dl Urea Nitrogen [place] ([facility]) Note: Responsible Observer: AW Calcium [Moles/volume] in Urine collected for unspecified durati on 9.4 mg/dl Calcium [place] ([facility]) Note: Responsible Observer: AW CO2 26 mmol/L CO2 [facility] ([facility]) Note: Responsible Observer: AW Chloride [Moles/volume] in Serum, Plasma or Blood 103 mmol/L Chloride [place] ([facility]) Note: Responsible Observer: AW EGFR - AfricanAm > 60 N/A EGFR - AfricanAm [facility] ([facility]) Note: Responsible Observer: AW EGFR - Non AF AM 56 N/A Above high normal EGFR - Non A F AM [place] ([facility]) Note: Responsible Observer: AW Creatinine [Moles/volume] in Vitreous fluid 1 mg/dl Creatinine [place] ([facility]) Note: Responsible Observer: AW Sodium [Moles/volume] in Serum, Plasma or Blood 140 mmol/L Sodium [place] ([facility]) Note: Responsible Observer: AW Glucose [Mass/volume] in Urine collected for unspecified duratio n 126 mg/dl Above high normal Glucose [place] ([facility]) Note: Responsible Observer: AW Potassium [Mass/volume] in Blood 4.1 mmol/L Pot assium [place] ([facility]) Note: Responsible Observer: AW Total Bilirubin 1 mg/dl [facility] Note: Responsible Observer: AW Total Protein 7.2 g/dl Total Protein [place] ([facility]) Note: Responsible Observer: AW ID Date Data Source [id number] 07/01/2019 09:34:00 AM EST [place] ([facility]) Name Value Range Interpretation Code Description Data Kylah rce(s) Supporting Document(s) GRAN% 67.2 % GRAN% [facility] ([facility]) Note: Responsible Observer: AW GRAN# 2.4 /mm3 Below low normal GRAN# [facility] ([facility]) Note: Responsible Observer: AW HCT 37.6 % HCT [facility] ([facility]) Note: Responsible Observer: AW HGB 12.2 g/dl HGB [facility] ([facility]) Note: Responsible Observer: AW LY# 1.0 /mm3 Below low normal LY# [facility] ([facility]) Note: Responsible Observer: AW LY% 26.9 % LY% [facility] ([facility]) Note: Responsible Observer: AW MCH 27.4 pg MCH [facility] ([facility]) Note: Responsible Observer: AW MCHC 32.5 G/DL MCHC [facility] ([facility]) Note: Responsible Observer: AW MID% 5.9 % MID% [facility] ([facility]) Note: Responsible Observer: AW MCV 84.3 um3 MCV [facility] ([facility]) Note: Responsible Observer: AW MID# 0.2 /mm3 MID# [facility] ([facility]) Note: Responsible Observer: AW PLT 147 /mm3 Below low normal PLT [facility] ([facility]) Note: Responsible Observer: AW MPV 10.7 um3 MPV [facility] ([facility]) Note: Responsible Observer: AW WBC 3.6 /mm3 Below low normal WBC [facility] ([facility]) Note: Responsible Observer: AW RBC 4.46 /mm3 RBC [facility] ([facility]) Note: Responsible Observer: AW RDW 17.1 % Above high normal RDW [facility] ([facility]) Note: Responsible Observer: AW ID Date Data Source [id number] 07/01/2019 09:34:00 AM EST [place] ([facility]) Name Value Range Interpretation Code Description Data Kylah rce(s) Supporting Document(s) ACR 35.7 ug/mg Above high normal ACR [facility] ([facility]) Note: Responsible Observer: AW Urine Creat 102.4 mg/dl Urine Creat [facility] ([facility]) Note: Responsible Observer: AW Micro alb 36.5 mg/L Above high normal Micro alb [facility] ([facility]) Note: Responsible Observer: AW Procedure Social History Code Duration Value Status Description Data Source(s ) Smoking 05/28/2020 12:00:00 AM EST Patient is a former smoker completed Patient is a former smoker [facility] ([facility]) Vital Signs ID Date Data Source UNK Name Value Range Interpretation Code Description Data Source(s) Oxygen saturation in Arterial blood by Pulse oximetry 98 % 98 % [place] ([facility]) Body surface area Derived from formula 1.86 m2 1.86 m2 [place] ([facility]) Body mass index (BMI) [Ratio] 36.5 kg/m2 36.5 k g/m2 [place] ([facility]) Body weight 193 [lb_av] 193 [lb_av] [place] ([facility]) Body height 61 [in_i] 61 [in_i] [place] ([facility]) Heart rate 110 /min 110 /min [place] ([facility]) Diastolic blood pressure 68 mm[Hg] 68 mm[Hg] [place] ([facility]) Systolic blood pressure 122 mm[Hg] 122 mm[Hg] [facility] ([facility]) Systolic blood pressure 130 mm[Hg] 130 mm[Hg] [facility] Body surface area Derived from formula 1.81 m2 1.81 m2 [facility] ([facility]) Body weight 84.823 kg 84.823 kg [facility] ([facility]) [place] body weight 100 [lb_av] 100 [lb_av] [facility] Body mass index (BMI) [Ratio] 36.5 kg/m2 36.5 k g/m2 [facility] ([facility]) Body weight 187.00 [lb_av] 187.00 [lb_av] [facility] Body height 60 [in_i] 60 [in_i] [facility] ([facility]) 5'0" Oxygen saturation in Arterial blood by Pulse oximetry 99 % 99 % [facility] ([facility]) o2 sat on 2L Heart rate 118 /min 118 /min [facility] ([facility], ) Diastolic blood pressure 68 mm[Hg] 68 mm[Hg] [facility] Body surface area Derived from formula 1.83 m2 1.83 m2 [place] ([facility]) Body mass index (BMI) [Ratio] 35.2 kg/m2 35.2 k g/m2 [place] ([facility]) Body weight 186.375 [lb_av] 186.375 [lb_av] [facility] ([facility]) Body height 61 [in_i] 61 [in_i] [place] ([facility]) Respiratory rate 32 /min 32 /min [place] ([facility]) Heart rate 114 /min 114 /min [place] ([facility]) Diastolic blood pressure 60 mm[Hg] 60 mm[Hg] [place] ([facility]) Systolic blood pressure 100 mm[Hg] 100 mm[Hg] G [facility] ([facility]) Inhaled oxygen concentration 28 % 28 % [place] ([facility]) Inhaled oxygen flow rate 2 L/min 2 L/min [facility]) Oxygen saturation in Arterial blood by Pulse oximetry 98 % 98 % [place] ([facility]) Body surface area Derived from formula 1.86 m2 1.86 m2 [place] ([facility]) Body mass index (BMI) [Ratio] 36.3 kg/m2 36.3 k g/m2 [place] ([facility]) Body weight 192 [lb_av] 192 [lb_av] [place] ([facility]) Body height 61 [in_i] 61 [in_i] [place] ([facility]) Diastolic blood pressure 79 mm[Hg] 79 mm[Hg] [place] ([facility]) Systolic blood pressure 121 mm[Hg] 121 mm[Hg] G [facility] ([facility]) Body surface area Derived from formula 1.83 m2 1.83 m2 [facility] Body weight 86.184 kg 86.184 kg [facility] ([facility], ) [place] body weight 100 [lb_av] 100 [lb_av] [facility] ([facility], ) Body mass index (BMI) [Ratio] 37.1 kg/m2 37.1 k g/m2 [facility] ([facility]) Body weight 190.00 [lb_av] 190.00 [lb_av] [facility] ([facility]) Body height 60 [in_i] 60 [in_i] [facility] ([facility]) 5'0" Oxygen saturation in Arterial blood by Pulse oximetry 95 % 95 % [facility] ([facility]) Room Air Heart rate 88 /min 88 /min [facility] ([facility]) Diastolic blood pressure 60 mm[Hg] 60 mm[Hg] [facility] ([facility]) Systolic blood pressure 120 mm[Hg] 120 mm[Hg] [facility] Body surface area Derived from formula 1.81 m2 1.81 m2 [place] ([facility]) Body mass index (BMI) [Ratio] 34.2 kg/m2 34.2 k g/m2 [place] ([facility]) Body weight 181 [lb_av] 181 [lb_av] [place] ([facility]) Body height 61 [in_i] 61 [in_i] [place] ([facility]) Heart rate 90 /min 90 /min [place] ([facility]) Diastolic blood pressure 55 mm[Hg] 55 mm[Hg] [place] ([facility]) Systolic blood pressure 99 mm[Hg] 99 mm[Hg] G [facility] ([facility]) Body surface area Derived from formula 1.81 m2 1.81 m2 [facility] ([facility]) Body weight 84.370 kg 84.370 kg [facility] ([facility]) [place] body weight 100 [lb_av] 100 [lb_av] [facility] ([facility]) Body mass index (BMI) [Ratio] 36.3 kg/m2 36.3 k g/m2 [facility] ([facility]) Body weight 186.00 [lb_av] 186.00 [lb_av] [facility] ([facility]) Body height 60 [in_i] 60 [in_i] [facility] ([facility]) 5'0" Oxygen saturation in Arterial blood by Pulse oximetry 98 % 98 % [facility] ([facility]) Heart rate 91 /min 91 /min [facility] ([facility]) Diastolic blood pressure 62 mm[Hg] 62 mm[Hg] [facility] ([facility]) Systolic blood pressure 108 mm[Hg] 108 mm[Hg] [facility] ([facility]) Body weight 87.545 kg 87.545 kg [facility] ([facility]) [place] body weight 100 [lb_av] 100 [lb_av] [facility] ([facility]) Body mass index (BMI) [Ratio] 37.7 kg/m2 37.7 k g/m2 [facility] ([facility]) Body weight 193.00 [lb_av] 193.00 [lb_av] [facility] Body height 60 [in_i] 60 [in_i] [facility] ([facility]) 5'0" Oxygen saturation in Arterial blood by Pulse oximetry 90 % 90 % [facility] ([facility]) Heart rate 90 /min 90 /min [facility] ([facility]) Diastolic blood pressure 70 mm[Hg] 70 mm[Hg] [facility] ([facility]) Systolic blood pressure 110 mm[Hg] 110 mm[Hg] [facility] ([facility]) Systolic blood pressure 100 mm[Hg] 100 mm[Hg] [facility] Oxygen saturation in Arterial blood by Pulse oximetry 95 % 95 % [place] ([facility]) Body surface area Derived from formula 1.85 m2 1.85 m2 [place] ([facility]) Body mass index (BMI) [Ratio] 35.9 kg/m2 35.9 k g/m2 [place] ([facility]) Body weight 190 [lb_av] 190 [lb_av] [place] ([facility]) Body height 61 [in_i] 61 [in_i] [place] ([facility]) Respiratory rate 24 /min 24 /min [place] ([facility]) Heart rate 90 /min 90 /min [place] ([facility]) Diastolic blood pressure 68 mm[Hg] 68 mm[Hg] [facility]) Oxygen saturation in Arterial blood by Pulse oximetry 93 % 93 % [facility]) Body surface area Derived from formula 1.86 m2 1.86 m2 [place] ([facility]) Body mass index (BMI) [Ratio] 36.7 kg/m2 36.7 k g/m2 [place] ([facility]) Body weight 194 [lb_av] 194 [lb_av] [place] ([facility]) Body height 61 [in_i] 61 [in_i] [place] ([facility]) Body temperature 98.7 [degF] 98.7 [degF] [facility] ([facility]) Respiratory rate 30 /min 30 /min [place] ([facility]) Heart rate 110 /min 110 /min [place] ([facility]) Diastolic blood pressure 50 mm[Hg] 50 mm[Hg] [place] ([facility]) Systolic blood pressure 82 mm[Hg] 82 mm[Hg] [facility] ([facility]) Body surface area Derived from formula 1.89 m2 1.89 m2 [facility]) Body mass index (BMI) [Ratio] 37.9 kg/m2 37.9 k g/m2 [facility]) Body weight 200.375 [lb_av] 200.375 [lb_av] [facility] ([facility]) Body height 61 [in_i] 61 [in_i] [place] ([facility]) Respiratory rate 20 /min 20 /min [place] ([facility]) Heart rate 88 /min 88 /min [place] ([facility]) Diastolic blood pressure 62 mm[Hg] 62 mm[Hg] [place] ([facility]) Systolic blood pressure 110 mm[Hg] 110 mm[Hg] [facility] ([facility]) Oxygen saturation in Arterial blood by Pulse oximetry 96 % 96 % [place] ([facility]) Body surface area Derived from formula 1.90 m2 1.90 m2 [facility]) Body mass index (BMI) [Ratio] 38.2 kg/m2 38.2 k g/m2 [facility]) Body weight 202 [lb_av] 202 [lb_av] [place] ([facility]) Body height 61 [in_i] 61 [in_i] [place] ([facility]) Body temperature 98.2 [degF] 98.2 [degF] [place] ([facility]) Respiratory rate 26 /min 26 /min [place] ([facility]) Heart rate 88 /min 88 /min [place] ([facility]) Diastolic blood pressure 50 mm[Hg] 50 mm[Hg] [place] ([facility]) Systolic blood pressure 98 mm[Hg] 98 mm[Hg] [facility] ([facility]) Oxygen saturation in Arterial blood by Pulse oximetry 95 % 95 % [place] ([facility]) Body height 61 [in_i] 61 [in_i] [place] ([facility]) Body temperature 97.3 [degF] 97.3 [degF] [place] ([facility]) Respiratory rate 26 /min 26 /min [place] ([facility]) Heart rate 80 /min 80 /min [place] ([facility]) Body surface area Derived from formula 1.95 m2 1.95 m2 [place] ([facility]) Body mass index (BMI) [Ratio] 40.6 kg/m2 40.6 k g/m2 [place] ([facility]) Body weight 215 [lb_av] 215 [lb_av] [place] ([facility]) Body height 61 [in_i] 61 [in_i] [place] ([facility]) Heart rate 78 /min 78 /min [place] ([facility]) Diastolic blood pressure 77 mm[Hg] 77 mm[Hg] [place] ([facility]) Systolic blood pressure 143 mm[Hg] 143 mm[Hg] [facility] ([facility]) Patient Treatment Plan of Care Planned Activity Planned Date Details Description Data Source (s) calcipotriene 0.08529 MG/MG Topical Ointment [Calcitre ne] 07/01/2020 12:00:00 AM [facility] ([facility]) Clobetasol Propionate 0.0005 MG/MG Topical Ointment 07/01/20 12:00:00 AM [facility] Trazodone Hydrochloride 50 MG Oral Tablet 06/27/2020 12:00:00 AM [facility] ([facility]) Lorazepam 0.5 MG Oral Tablet 06/27/2020 12:00:00 AM [facility] OneTouch Delica Lancets 33G Miscellaneous 06/19/2020 12:00:00 AM [facility] ([facility]) OneTouch Verio In Vitro Strip 06/19/2020 12:00:00 AM [facility]) OneTouch Verio Flex System w/Device Kit 06/19/2020 12:00:00 AM [facility]) Accu-Chek Guide In Vitro Strip 06/19/2020 12:00:00 AM [facility]) Accu-Chek Guide w/Device Kit 06/19/2020 12:00:00 AM [facility]) Accu-Chek FastClix Lancets Miscellaneous 06/19/2020 12:00:00 AM [facility]) Lorazepam 0.5 MG Oral Tablet 06/11/2020 12:00:00 AM [facility]) Prednisone 20 MG Oral Tablet 04/07/2020 12:00:00 AM [facility]) Azithromycin 250 MG Oral Tablet 04/07/2020 12:00:00 AM [facility]) Levofloxacin 500 MG Oral Tablet [Levaquin] 03/02/2020 12:00:00 AM [facility] ([facility]) Basaglar KwikPen 100 UNIT/ML Subcutaneous Solution Pen -injector 02/11/2020 12:00:00 AM [facility] ([facility]) empagliflozin 10 MG Oral Tablet [Jardiance] 02/05/2020 12:00:00 AM [facility]) 24 HR metoprolol succinate 50 MG Extended Release Oral Tablet 02/05/2020 12:00:00 AM [facility] ([facility]) BD Pen Needle Isabel U/F 32G X 4 MM Miscellaneous 01/24/2020 12:00:00 AM [facility]) Hydrochlorothiazide 12.5 MG Oral Tablet 01/20/2020 12:00:00 AM [facility] ([facility]) Enalapril Maleate 5 MG Oral Tablet 01/20/2020 12:00:00 AM [facility]) Medrol 4 MG Oral Tablet Therapy Pack 12/19/2019 12:00:00 AM [facility]) 30 ACTUAT fluticasone furoate 0.1 MG/ACT UAT / vilanterol 0.025 MG/ACTUAT Dry Powder Inhaler [Breo] 12/05/2019 12:00:00 AM [facility] ([facility]) Levofloxacin 500 MG Oral Tablet [Levaquin] 12/05/2019 12:00:00 AM [facility] ([facility]) vilazodone hydrochloride 40 MG Oral Tablet [Viibryd] 020 12:00:00 AM [facility] Azithromycin 250 MG Oral Tablet 10/14/2019 12:00:00 AM [facility]) Ozempic (0.25 or 0.5 MG/DOSE) 2 MG/1.5ML Subcutaneous Solution Pen-injector 09/26/2019 12:00:00 AM [facility] ([facility]) Lovastatin 20 MG Oral Tablet 09/23/2019 12:00:00 AM [facility] ([facility]) 3 ML liraglutide 6 MG/ML Pen Injector [Victoza] 08/14/2019 12:00:00 AM [facility]) Hydrochlorothiazide 12.5 MG Oral Tablet 07/29/2019 12:00:00 AM [facility]) Enalapril Maleate 5 MG Oral Tablet 07/29/2019 12:00:00 AM [facility]) pantoprazole 40 MG Delayed Release Oral Tablet 07/01/2019 12:00:00 AM [facility]) Enalapril Maleate 5 MG / Hydrochlorothiazide 12.5 MG O ral Tablet 06/24/2019 12:00:00 AM [facility]) 3 ML liraglutide 6 MG/ML Pen Injector [Victoza] 03/18/2019 12:00:00 AM [facility] ([facility]) empagliflozin 10 MG Oral Tablet [Jardiance] 02/05/2019 12:00:00 AM [facility]) 24 HR metoprolol succinate 50 MG Extended Release Oral Tablet 02/05/2019 12:00:00 AM [facility] ([facility]) Basaglar KwikPen 100UNIT/ML Subcutaneous Solution Pen- injector 01/24/2019 12:00:00 AM [facility] ([facility]) vilazodone hydrochloride 40 MG Oral Tablet [Viibryd] 019 12:00:00 AM [facility]) Lovastatin 20 MG Oral Tablet 09/24/2018 12:00:00 AM [facility] ([facility]) pantoprazole 40 MG Delayed Release Oral Tablet 07/20/2018 12:00:00 AM [facility] ([facility]) calcipotriene 0.67101 MG/MG Topical Ointment [Calcitre ne] 06/28/2018 12:00:00 AM [facility] ([facility]) Clobetasol Propionate 0.0005 MG/MG Topical Ointment 04/02/20 12:00:00 AM [facility] ([facility]) 24 HR Bupropion Hydrochloride 150 MG Extended Release Oral Tablet 02/28/2018 12:00:00 AM [facility] ([facility]) BD Pen Needle Isabel U/F 32G X 4 MM MISC 03/30/2016 12:00:00 AM [facility])
[2020-08-05] MEDS ORDERED: ONDANSETRON 4MG/2ML VIAL IV ONE (12:30)
[2020-08-05] MEDS ORDERED: CEFEPIME HCL 1 GM in D5W MINI-BAG PLUS 50 ML IV SCH (12:45)
[2020-08-05 13:31] LABS: HEPATITIS B SURFACE ANTIGEN NEGATIVE (NEGATIVE)
[2020-08-05 13:57] LABS: HEPATITIS B CORE ANTIBODY IGM NEGATIVE (NEGATIVE); HEPATITIS C VIRUS ABY INDEX < 0.0 INDEX (<0.8)
[2020-08-05 14:00] LABS: HEPATITIS A ANTIBODY IGM NEGATIVE (NEGATIVE)
[2020-08-05] MEDS: PANTOPRAZOLE 40MG TAB (PROTONIX) PO SCH (14:10)
[2020-08-05] MEDS: methylPREDNISolone 125MG 2ML VIAL IV SCH ×2 (14:10→21:17)
[2020-08-05] MEDS: HumaLOG INSULIN (NovoLOG) PER UNIT SC SCH ×3 (14:10→21:00)
[2020-08-05] MEDS: FERROUS SULFATE 325MG TAB PO SCH (14:10)
[2020-08-05] MEDS: METOPROLOL SUCC *XL* 25MG TAB (TopROL *XL*) PO SCH (14:10)
--- NOTE | 2020-08-05 14:50 | ECGEPIP ---
[facility] - ED Test Date: 2020-08-05 Pat Name: CODY AMATO Department: Room: - Gender: Female [employer] Pilot: yaya : 1955 Requested By: RAND Gutierrez Order Number: [id number] Reading MD: Aury Deluca Measurements Intervals [place] Rate: 123 P: 28 NC: 139 QRS: 1 QRSD: 69 T: -26 QT: 337 QTc: 484 Interpretive Statements SINUS TACHYCARDIA WITH OCCASIONAL SUPRAVENTRICULAR PREMATURE COMPLEXES POSSIBLE ANTERIOR MYOCARDIAL INFARCTION, PROBABLY OLD LOW VOLTAGE ABNORMAL RHYTHM ECG INCREASED RATE 06/30/20 Electronically Signed on 08-05-2020 14:50:29 EST by Aury Deluca
[2020-08-05] MEDS ORDERED: SODIUM BICARBONATE 8.4% INJ 50MEQ 50 ML VIAL As Ordered ONE (14:51)
[2020-08-05] MEDS: ENOXAPARIN 40MG/0.4ML SYRINGE (J1650 PER 10MG) SC SCH (16:12)
[2020-08-05] MEDS: CEFEPIME HCL 2 GM in D5W MINI-BAG PLUS 50 ML IV SCH (16:13)
[2020-08-05] MEDS ORDERED: HumaLOG INSULIN (NovoLOG) PER UNIT SC SCH (17:30)
[2020-08-05] MEDS ORDERED: VANCOMYCIN HCL 1,000 MG, VIAL MATE ADAPTER 1 EACH in D5W 250 ML IV ONE (18:00)
[2020-08-05 18:16] LABS: APPEARANCE, BODY FLUID CLEAR (CLEAR); ASCITES FL COLOR PALE YELLOW (COLORLESS); SOURCE, BODY FLUID ASCITES
[2020-08-05 18:34] LABS: SOURCE, BODY FLUID ALBUMIN ASCITES
[2020-08-05 18:38] LABS: SOURCE, BODY FLUID GLUCOSE ASCITES; SOURCE, BODY FLUID TOT PROTEIN ASCITES; TOTAL PROTEIN, BODY FLUID 1.6 G/DL (NOT ESTABLISHED)
[2020-08-05 18:45] LABS: SPEC. GRAVITY BODY FLUIDS 1.014 (NOT ESTABLISHED)
--- NOTE | 2020-08-05 18:48 | REP ---
INDICATION: increased abd distention, SOB The patient has a history of ascites COMPARISON: None. TECHNIQUE: The procedure was performed by Carleen Baum [facility] [[email or web address]], under the direct supervision of Dr. Okeefe The risks and benefits of the procedure were explained to the patient and an informed consent was obtained both verbally and written. Directly prior to the start of the procedure a formal time-out was completed in the procedure room. The largest pocket of fluid was localized in the left flank using ultrasound guidance. The skin was prepped and draped in a sterile fashion. Eleven ML of buffered lidocaine was used as a local anesthetic. An 8-Czech multi side-hole catheter was inserted using trocar technique. FINDINGS: 5700 mL of yellow ascites fluid was removed in total, 1250 was sent to the lab for further analysis and the rest was discarded. The patient tolerated the procedure well and there were no immediate complications. After the appropriate amount of monitored convalescence, the patient was discharged from the department. IMPRESSION: Ultrasound-guided paracentesis with removal of 5700 mL of ascites. <Electronically signed by Carleen Baum > 08/05/20 1810 <Electronically signed by Shorty Okeefe > 08/05/20 1849
[2020-08-05 20:00] VITALS: BP 101/59
[2020-08-05] MEDS: SIMVASTATIN 20 MG TAB PO SCH (21:17)
[2020-08-05] MEDS ORDERED: VANCOMYCIN HCL 1,000 MG, VIAL MATE ADAPTER 1 EACH in D5W 250 ML IV SCH (22:00)
[2020-08-06] VITALS: BP 101/55
[2020-08-06] MEDS: CEFEPIME HCL 2 GM in D5W MINI-BAG PLUS 50 ML IV SCH (03:05)
[2020-08-06 04:00] VITALS: BP 111/62
[2020-08-06 05:36] LABS: HEMATOCRIT 36.9 % (36.0-47.0); HEMOGLOBIN 10.9 g/dl (12.0-15.5); MEAN CORPUSCULAR HEMOGLOBIN 27.3 pg (27.0-33.0); MEAN CORPUSCULAR HGB CONC 29.5 g/dl (32.0-36.5); MEAN CORPUSCULAR VOLUME 92.3 fl (80.0-96.0); PLATELET COUNT, AUTOMATED 120 10^3/uL (150-450); WHITE BLOOD COUNT 2.4 10^3/uL (4.0-10.0)
[2020-08-06] MEDS: methylPREDNISolone 125MG 2ML VIAL IV SCH ×3 (05:36→21:06)
[2020-08-06 06:04] LABS: ALBUMIN 2.6 GM/DL (3.2-5.2); ALT/SGPT 15 U/L (12-78); BILIRUBIN,TOTAL 0.8 MG/DL (0.2-1.0); BLOOD UREA NITROGEN 12 MG/DL (7-18); CALCIUM LEVEL 8.5 MG/DL (8.8-10.2); CARBON DIOXIDE LEVEL 26 MEQ/L (21-32); CHLORIDE LEVEL 103 MEQ/L (98-107); CREATININE FOR GFR 0.81 MG/DL (0.55-1.30); GLOMERULAR FILTRATION RATE > 60.0 (>45); GLUCOSE, FASTING 154 MG/DL (70-100); POTASSIUM SERUM 4.5 MEQ/L (3.5-5.1); SODIUM LEVEL 142 MEQ/L (136-145); TOTAL PROTEIN 6.2 GM/DL (6.4-8.2)
[2020-08-06 07:08] VITALS: BP 125/78
[2020-08-06] MEDS: LEVALBUTEROL 1.25 MG/0.5 ML CONCENTRATE NEB NEB SCH ×4 (07:32→19:52)
[2020-08-06] MEDS: PANTOPRAZOLE 40MG TAB (PROTONIX) PO SCH (08:31)
[2020-08-06] MEDS: FERROUS SULFATE 325MG TAB PO SCH (08:31)
[2020-08-06] MEDS: METOPROLOL SUCC *XL* 25MG TAB (TopROL *XL*) PO SCH (08:32)
[2020-08-06] MEDS: HumaLOG INSULIN (NovoLOG) PER UNIT SC SCH ×4 (08:32→20:22)
[2020-08-06] MEDS: ENOXAPARIN 40MG/0.4ML SYRINGE (J1650 PER 10MG) SC SCH (12:30)
--- NOTE | 2020-08-06 14:58 | IPNPDOC ---
Date Seen The patient was seen on 08/06/20. Progress Note SUBJECTIVE: Much improved s/p 5.7 L removed on abdominal paracentesis 08/05/20. Remains tachycardic. Denies increased shortness of breath and chest pain, feels much improved. Cx pending from paracentesis, PT/OT today. Still slightly wheezing more than baseline. OBJECTIVE: PHYSICAL EXAMINATION: VS: Please see below CONSTITUTIONAL: lying in bed, comfortable, AAO x 3 EYES: PERRLA, EOM intact HENT, MOUTH: Normocephalic, atraumatic, moist mucous membranes, NC in place NECK: SUPPLE, no JVD, no lymphadenopathy, no carotid bruit CV: tachycardic, Regular rhythm, S1S2 normal, no murmurs/rubs/gallops RESPIRATORY: Crackles in right mid-lower lung, crackles in left lower lung. Exp wheezing b/l, no rales/rhonchi GI: obese but very much less tense, soft, nontender, nondistended, no rebound o r guarding, no organomegaly : Deferred MUSCULOSKELETAL: Normal ROM. No cyanosis, clubbing, swelling, joint deformity, +2 lower extremity edema INTEGUMENTARY: Intact, psoriatic lesions on all extremities and abdomen, nontender. no erythema NEUROLOGIC: Cranial Nerves II-XII are intact, no focal deficits PSYCHIATRIC: Mood and affect are normal LABORATORY DATA: Please see below IMAGING: Echocardiogram: Pending CTA chest: 1. No evidence for pulmonary embolus. 2. Postsurgical changes and volume loss to the right hemithorax. 3. Moderate left effusion, scattered patchy airspace disease, perihilar and lower lobe consolidations (right greater than left) and adenopathy again noted and similar to prior examination. 4. Stable upper abdominal findings including ascites and adenopathy again noted and essentially unchanged. CT abd/pelvis: 1. Marked ascites. Cannot exclude scattered adenopathy as well as the possibility of peritoneal soft tissue implants. Evaluation is limited due to the lack of contrast enhancement. 2. Cirrhosis and splenomegaly. 3. Stable simple right renal cysts. 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 metastatic cancer?, HCAP PLAN: Shortness of breath likely multifactorial bilateral pleural effusion, increased abd distension poss 2/2 to worsening cirrhosis vs. metastatic cancer? -Appears much more uncomfortable -Also has history of malignant pericardial effusion, sarcoidosis -Currently on 2 LNC, home amount of O2 -C/w treatment below for individual issues Abdominal ascites possibly 2/2 to peritoneal carcinomatosis vs. cirrhosis? -s/p paracentesis with 5.7 L removed, much more comfortable with breathing -No known cirrhosis hx per patient, denies hepatitis hx or alcohol abuse history -Hepatitis panel neg -F/u ascitic fluid studies, not suspicious for SBP currently Abnormal CT chest -WBC wnl, afebrile overnight -Findings on CT similar to last, procalcitonin low so low suspicion for pneumonis -Currently on 2 L NC, normal amount -Stopped abx -Monitor respiratory status Bilateral malignant pleural effusions -Still slightly wheezy on exam but on 2 L NC -On last admission in 06/2020, left effusion was attempted to be drained but not enough fluid present -CTA chest above -Discussed with Dr. Tran (CT surgery), not needing additional drainage at this time of left pleural effusion. If condition worsens, reimage and discuss with him then -C/w drainage of right PleurX catheter home schedule, methylprednisolone, levalbuterol PRN and ATC Metastatic adenocarcinoma right lung, extensive per heme/onc -PD L1 25% positive, ROSS1 negative, BRAF positive and ALK-negative. -S/p [address] Gann, s/p 2 doses of keytruda -Discussed with Dr. Regalado, hematology/onc. States prognosis is poor. Attempting several sessions more of chemo likely but if does not respond then prognosis worsens. -At this time, will not officially consult but call if needed. -DNR/DNI Hx of malignant pericardial effusion -Tachycardia, incr SOB- cannot r/o that this has worsened -Will f/u echocardiogram Sinus tachycardia, chronic -When trending prior admissions, patient has had persistent tachycardia -Does not follow with [employer] -Will increase dose of toprol XL to 37 mg Po daily, extra small dose today. HTN -Stable -C/w home med DM type II -Consistent carb diet -ISS, FS AC/HS -Monitor closely while on steroids Cirrhotic changes of liver -No documented cirrhosis hx, no alcohol abuse or hepatitis history -Hepatitis neg -F/u ascites fluid tests GERD -PPI DVT px -Enoxaparin DISPOSITION: Admitted as acute inpatient status. Plan is hopefully discharge home when medically improved. VS, I&O, 24H, Fishbone Vital Signs/I&O Vital Signs Date Time Temp Pulse Resp B/P (MAP) Pulse Ox O2 Delivery O2 Flow Rate FiO2 08/06/20 12:00 2.0 08/06/20 08:32 134 125/78 08/06/20 07:08 98.3 22 100 Nasal Cannula I&O- Last 24 Hours up to 6 AM 08/06/20 05:59 Intake Total 350 ml Output Total 0 ml Balance 350 ml Laboratory Data 24H LABS Laboratory Tests 2 08/05/20 15:05: Body Fluid Source ASCITES, Body Fluid Color PALE YELLOW, Body Fluid Appearance CLEAR, Body Fluid Specific [place] 1.014, Body Fluid WBC (Auto) 262H, Body Fluid RBC (Auto) < 2, Body Fluid Mononuclear Cells % Auto 96.2H, Fluid Polymorphonu clear Cell % Auto 3.8H, Body Fluid Glucose Source ASCITES, Body Fluid Glucose 112, Body Fluid Protein Source ASCITES, Body Fluid Total Protein 1.6, Body Fluid Albumin Source ASCITES, Body Fluid Albumin 1.0 08/05/20 17:02: Bedside Glucose (Misc Panel) 123H 08/05/20 21:01: Bedside Glucose (Misc Panel) 162H 08/06/20 05:10: Nucleated Red Blood Cells % (auto) 0.0, Anion Gap 13, Glomerular Filtration Rate > 60.0, Calcium Level 8.5L, Total Bilirubin 0.8, Aspartate Amino Transf (AST/SGOT) 15, Alanine Aminotransferase (ALT/SGPT) 15, Alkaline Phosphatase 220H, Total Protein 6.2L, Albumin 2.6L, Albumin/Globulin Ratio 0.7L 08/06/20 05:45: Methicillin-Resist S.aureus DNA PCR NOT DETECTED 08/06/20 07:52: Bedside Glucose (Misc Panel) 155H 08/06/20 11:50: Bedside Glucose (Misc Panel) 166H CBC/BMP Laboratory Tests 08/06/20 05:10 Microbiology Microbiology 08/05/20 Acid Fast Stain, Received Pending 08/05/20 Mycobacterial Culture, Received Pending 08/05/20 Fungal Smear, Received Pending 08/05/20 Fungal Culture, Received Pending 08/05/20 Gram Stain - Final, Resulted 08/05/20 Body Fluid Culture, Resulted Pending 08/05/20 Respiratory Virus Panel (PCR) ([facility]AL) - Final, Complete 08/05/20 Blood Culture - Preliminary, Resulted No growth after 24 hours . All specim... 08/05/20 Blood Culture - Preliminary, Resulted No growth after 24 hours . All specim... Current Medications Current Medications Medications (Trade) Dose Ordered Sig/Poli Route PRN Reason Start Time Stop Time Status Last Admin Dose Admin Calcipotriene (Dovonex 0.005%) TO AFFECTED PSORIA... BID PRN TOP PSORIASIS 08/05/20 12:15 Cefepime HCl 1 gm/ Dextrose 50 ml @ 100 mls/hr Q12H IV 08/05/20 12:45 08/05/20 13:05 DC Cefepime HCl 2 gm/ Dextrose 50 ml @ 100 mls/hr Q12H IV 08/05/20 14:00 08/06/20 07:34 DC 08/06/20 03:05 Dextrose (Dextrose 50%) 25 ml ASDIRECTED PRN IV SEE LABEL COMMENTS 08/05/20 12:15 Enoxaparin Sodium (Lovenox) 40 mg DAILY SC 08/05/20 09:00 08/06/20 12:30 Ferrous Sulfate (Ferrous Sulfate) 325 mg DAILY PO 08/05/20 09:00 08/06/20 08:31 Glucagon (Glucagon) 1 mg ASDIRECTED PRN SC SEE LABEL COMMENTS 08/05/20 12:15 Glucose (Glucose) 16 GM ASDIRECTED PRN PO SEE LABEL COMMENTS 08/05/20 12:15 Home Med (Med Rec Complete!) ASDIRECTED XX 08/05/20 11:30 08/05/20 11:29 DC Insulin Human Lispro (HumaLOG INSULIN) SEE PROTOCOL TABLE AC SC 08/05/20 12:00 08/06/20 12:25 Insulin Human Lispro (HumaLOG INSULIN) SEE PROTOCOL TABLE AC SC 08/05/20 17:30 08/05/20 12:16 DC Insulin Human Lispro (HumaLOG INSULIN) SEE PROTOCOL TABLE QHS SC 08/05/20 21:00 Levalbuterol HCl (Xopenex Neb) 1.25 mg Q2HP PRN NEB SOB/WHEEZING 08/05/20 12:00 Levalbuterol HCl (Xopenex Neb) 1.25 mg RQID NEB 08/05/20 12:00 08/06/20 11:07 Methylprednisolone (SOLUmedrol) 60 mg Q8H IV 08/05/20 13:00 08/06/20 12:25 Metoprolol Succinate (TopROL XL) 25 mg DAILY PO 08/05/20 09:00 08/06/20 08:32 Pantoprazole Sodium (Protonix) 40 mg DAILY PO 08/05/20 09:00 08/06/20 08:31 Simvastatin (Zocor) 20 mg QPM PO 08/05/20 21:00 08/05/20 21:17 Vancomycin HCl 1000 mg/IV Miscellaneous Supplies 1 each/ Dextrose 270 ml @ 270 mls/hr Q12H IV 08/05/20 22:00 08/06/20 07:34 DC 08/05/20 21:17 Allergies Coded Allergies: citalopram (Verified Adverse Reaction, Severe, jittery, 05/12/20) metformin (Verified Adverse Reaction, Severe, nausea, vomiting, 05/12/20) erythromycin base (Verified Adverse Reaction, Intermediate, vomiting, 04/20/20) azithromycin (Verified Adverse Reaction, Unknown, vomiting, 05/12/20) mirtazapine (Verified Adverse Reaction, Unknown, insomnia, 05/12/20) Arlette Morales MD Aug 06, 2020 14:58
[2020-08-06 16:00] VITALS: BP 122/62
[2020-08-06] MEDS ORDERED: METOPROLOL SUCC *XL* 12.5MG PER 1/2 TAB (TopROL *XL*) PO ONE (16:00)
[2020-08-06 20:00] VITALS: BP 105/64
[2020-08-06] MEDS: SIMVASTATIN 20 MG TAB PO SCH (20:22)
[2020-08-07] VITALS (7 sets, daily range): BP systolic 98–139; BP diastolic 50–75
[2020-08-07] MEDS: methylPREDNISolone 125MG 2ML VIAL IV SCH ×2 (04:24→17:18)
[2020-08-07 04:56] LABS: HEMATOCRIT 34.2 % (36.0-47.0); HEMOGLOBIN 10.5 g/dl (12.0-15.5); MEAN CORPUSCULAR HEMOGLOBIN 27.5 pg (27.0-33.0); MEAN CORPUSCULAR HGB CONC 30.7 g/dl (32.0-36.5); MEAN CORPUSCULAR VOLUME 89.5 fl (80.0-96.0); PLATELET COUNT, AUTOMATED 113 10^3/uL (150-450); RED BLOOD COUNT 3.82 10^6/uL (4.00-5.40); WHITE BLOOD COUNT 3.7 10^3/uL (4.0-10.0)
[2020-08-07 05:22] LABS: ALBUMIN 2.7 GM/DL (3.2-5.2); ALT/SGPT 14 U/L (12-78); BILIRUBIN,TOTAL 0.5 MG/DL (0.2-1.0); BLOOD UREA NITROGEN 17 MG/DL (7-18); CALCIUM LEVEL 8.7 MG/DL (8.8-10.2); CARBON DIOXIDE LEVEL 32 MEQ/L (21-32); CHLORIDE LEVEL 101 MEQ/L (98-107); CREATININE FOR GFR 0.78 MG/DL (0.55-1.30); GLOMERULAR FILTRATION RATE > 60.0 (>45); GLUCOSE, FASTING 204 MG/DL (70-100); POTASSIUM SERUM 3.7 MEQ/L (3.5-5.1); SODIUM LEVEL 140 MEQ/L (136-145); TOTAL PROTEIN 5.5 GM/DL (6.4-8.2)
[2020-08-07] MEDS: LEVALBUTEROL 1.25 MG/0.5 ML CONCENTRATE NEB NEB SCH ×4 (07:41→19:39)
[2020-08-07] MEDS ORDERED: SLF 3 ML SYR IV PRN (08:15)
[2020-08-07] MEDS: METOPROLOL SUCC *XL* 12.5MG PER 1/2 TAB (TopROL *XL*) PO SCH (08:31)
[2020-08-07] MEDS: PANTOPRAZOLE 40MG TAB (PROTONIX) PO SCH (08:31)
[2020-08-07] MEDS: FERROUS SULFATE 325MG TAB PO SCH (08:31)
[2020-08-07] MEDS: HumaLOG INSULIN (NovoLOG) PER UNIT SC SCH ×4 (08:31→21:24)
[2020-08-07] MEDS: METOPROLOL SUCC *XL* 25MG TAB (TopROL *XL*) PO SCH (08:32)
[2020-08-07] MEDS ORDERED: SODIUM CHLORIDE NASAL 0.65% SPRAY BTL (OCEAN) PRN (10:30)
[2020-08-07] MEDS: FUROSEMIDE 40MG/4ML VIAL (J1940) IV SCH ×2 (12:03→16:55)
[2020-08-07] MEDS: SLF 3 ML SYR IV SCH ×2 (13:01→21:25)
--- NOTE | 2020-08-07 13:53 | IPNPDOC ---
Date Seen The patient was seen on 08/07/20. Progress Note SUBJECTIVE: HR very tachycardic this AM up to 120's, getting higher dose CCB this AM. Remains on home amt O2, no incr SOB or chest pain. Diarrhea overnight, GI panel ordered. Started IV lasix BID, very fluid overloaded. Decreased IV steroids today. OBJECTIVE: PHYSICAL EXAMINATION: VS: Please see below CONSTITUTIONAL: sitting up in bedside chair, comfortable, AAO x 3 EYES: PERRLA, EOM intact HENT, MOUTH: Normocephalic, atraumatic, moist mucous membranes, NC in place NECK: SUPPLE, no JVD, no lymphadenopathy, no carotid bruit CV: tachycardic, Regular rhythm, S1S2 normal, no murmurs/rubs/gallops RESPIRATORY: Crackles in right mid-lower lung, crackles in left lower lung. Decreased exp wheezing b/l, no rales/rhonchi GI: obese but very much less tense, soft, nontender, nondistended, no rebound or guarding, no organomegaly : Deferred MUSCULOSKELETAL: Normal ROM. No cyanosis, clubbing, swelling, joint deformity, +2 lower extremity edema INTEGUMENTARY: Intact, psoriatic lesions on all extremities and abdomen, nontender. no erythema NEUROLOGIC: Cranial Nerves II-XII are intact, no focal deficits PSYCHIATRIC: Mood and affect are normal LABORATORY DATA: Please see below IMAGING: Echocardiogram: Pending CTA chest: 1. No evidence for pulmonary embolus. 2. Postsurgical changes and volume loss to the right hemithorax. 3. Moderate left effusion, scattered patchy airspace disease, perihilar and lower lobe consolidations (right greater than left) and adenopathy again noted and similar to prior examination. 4. Stable upper abdominal findings including ascites and adenopathy again noted and essentially unchanged. CT abd/pelvis: 1. Marked ascites. Cannot exclude scattered adenopathy as well as the possibility of peritoneal soft tissue implants. Evaluation is limited due to the lack of contrast enhancement. 2. Cirrhosis and splenomegaly. 3. Stable simple right renal cysts. 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 metastati c cancer?, HCAP PLAN: Shortness of breath likely multifactorial bilateral pleural effusion, increased abd distension poss 2/2 to worsening cirrhosis vs. metastatic cancer? -Appears much more uncomfortable -Also has history of malignant pericardial effusion, sarcoidosis -Currently on 2 LNC, home amount of O2 -C/w treatment below for individual issues Diarrhea, acute onset -R/o C. diff -F/u GI panel Increased Lower ext swelling, ascites, fluid retention -Patient complains of lower ext pain from incr distention of legs due to swelling today, heel pain -Starting on IV lasix 40 mg BID, monitor U/o closely -Also monitor for s/s of worsening dehydration (i.e. worsening tachycardia) Abdominal ascites possibly 2/2 to peritoneal carcinomatosis vs. cirrhosis? -s/p paracentesis with 5.7 L removed, much more comfortable with breathing -No known cirrhosis hx per patient, denies hepatitis hx or alcohol abuse history -Hepatitis panel neg -Ascitic fluid neg for infection, althought fungal cx still pending - not suspicious for SBP currently Abnormal CT chest -WBC wnl, afebrile overnight, currently on 2 L NC, normal amount -Findings on CT similar to last, procalcitonin low so low suspicion for pneumonis -Stopped abx -Monitor respiratory status Bilateral malignant pleural effusions -Improved wheezing on exam but on 2 L NC -On last admission in 06/2020, left effusion was attempted to be drained but not enough fluid present -CTA chest above -Discussed with Dr. Tran (CT surgery), not needing additional drainage at this time of left pleural effusion. If condition worsens, reimage and discuss with him then -C/w drainage of right PleurX catheter home schedule, decreased dose of methylprednisolone, levalbuterol PRN and ATC Metastatic adenocarcinoma right lung, extensive per heme/onc -PD L1 25% positive, ROSS1 negative, BRAF positive and ALK-negative. -S/p [address] Gann, s/p 2 doses of keytruda -Discussed with Dr. Regalado, hematology/onc. States prognosis is poor. Attempting several sessions more of chemo likely but if does not respond then prognosis worsens. -At this time, will not officially consult but call if needed. 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 Plan is hopefully discharge home when medically improved. VS, I&O, 24H, Fishbone Vital Signs/I&O Vital Signs Date Time Temp Pulse Resp B/P (MAP) Pulse Ox O2 Delivery O2 Flow Rate FiO2 08/07/20 12:00 2.0 08/07/20 12:00 97.3 117 20 98/50 (66) 99 Nasal Cannula I&O- Last 24 Hours up to 6 AM 08/07/20 05:59 Intake Total 1350 ml Output Total 350 ml Balance 1000 ml Laboratory Data 24H LABS Laboratory Tests 2 08/06/20 16:35: Bedside Glucose (Misc Panel) 155H 08/06/20 20:12: Bedside Glucose (Misc Panel) 204H 08/07/20 04:35: Nucleated Red Blood Cells % (auto) 0.0, Anion Gap 7L, Glomerular Filtration Rate > 60.0, Calcium Level 8.7L, Total Bilirubin 0.5, Aspartate Amino Transf (AST/SGOT) 15, Alanine Aminotransferase (ALT/SGPT) 14, Alkaline Phosphatase 214H, Total Protein 5.5L, Albumin 2.7L, Albumin/Globulin Ratio 1.0L 08/07/20 11:22: Bedside Glucose (Misc Panel) 191H CBC/BMP Laboratory Tests 08/07/20 04:35 Microbiology Microbiology 08/05/20 Acid Fast Stain, Received Pending 08/05/20 Mycobacterial Culture, Received Pending 08/05/20 Fungal Smear, Received Pending 08/05/20 Fungal Culture, Received Pending 08/05/20 Gram Stain - Final, Complete 08/05/20 Body Fluid Culture - Final, Complete 08/05/20 Respiratory Virus Panel (PCR) (SAL) - Final, Complete 08/05/20 Blood Culture - Preliminary, Resulted No Growth after 48 hours. All Specime... 08/05/20 Blood Culture - Preliminary, Resulted No Growth after 48 hours. All Specime... Current Medications Current Medications Medications (Trade) Dose Ordered Sig/Poli Route PRN Reason Start Time Stop Time Status Last Admin Dose Admin Calcipotriene (Dovonex 0.005%) TO AFFECTED PSORIA... BID PRN TOP PSORIASIS 08/05/20 12:15 Cefepime HCl 1 gm/ Dextrose 50 ml @ 100 mls/hr Q12H IV 08/05/20 12:45 08/05/20 13:05 DC Cefepime HCl 2 gm/ Dextrose 50 ml @ 100 mls/hr Q12H IV 08/05/20 14:00 08/06/20 07:34 DC 08/06/20 03:05 Dextrose (Dextrose 50%) 25 ml ASDIRECTED PRN IV SEE LABEL COMMENTS 08/05/20 12:15 Enoxaparin Sodium (Lovenox) 40 mg DAILY SC 08/05/20 09:00 08/07/20 07:57 DC 08/06/20 12:30 Ferrous Sulfate (Ferrous Sulfate) 325 mg DAILY PO 08/05/20 09:00 08/07/20 08:31 Furosemide (LASIX injection) 40 mg BID@09,17 IV 08/07/20 09:00 08/07/20 12:03 Glucagon (Glucagon) 1 mg ASDIRECTED PRN SC SEE LABEL COMMENTS 08/05/20 12:15 Glucose (Glucose) 16 GM ASDIRECTED PRN PO SEE LABEL COMMENTS 08/05/20 12:15 Heparin Sodium (Heparin (Flush)) 500 units ASDIRECTED PRN IV SEE LABEL COMMENTS 08/07/20 11:30 Heparin Sodium (Heparin (Flush)) 500 units DAILY IV 08/08/20 09:00 Home Med (Med Rec Complete!) ASDIRECTED XX 08/05/20 11:30 08/05/20 11:29 DC Insulin Human Lispro (HumaLOG INSULIN) SEE PROTOCOL TABLE AC SC 08/05/20 12:00 08/07/20 12:03 Insulin Human Lispro (HumaLOG INSULIN) SEE PROTOCOL TABLE AC SC 08/05/20 17:30 08/05/20 12:16 DC Insulin Human Lispro (HumaLOG INSULIN) SEE PROTOCOL TABLE QHS SC 08/05/20 21:00 Levalbuterol HCl (Xopenex Neb) 1.25 mg Q2HP PRN NEB SOB/WHEEZING 08/05/20 12:00 Levalbuterol HCl (Xopenex Neb) 1.25 mg RQID NEB 08/05/20 12:00 08/07/20 11:27 Methylprednisolone (SOLUmedrol) 60 mg Q12H IV 08/07/20 17:00 Methylprednisolone (SOLUmedrol) 60 mg Q8H IV 08/05/20 13:00 08/07/20 07:57 DC 08/07/20 04:24 Metoprolol Succinate (TopROL XL) 12.5 mg DAILY PO 08/07/20 09:00 08/07/20 08:31 Metoprolol Succinate (TopROL XL) 25 mg DAILY PO 08/05/20 09:00 08/06/20 15:05 DC 08/06/20 08:32 Metoprolol Succinate (TopROL XL) 25 mg DAILY PO 08/07/20 09:00 08/07/20 08:32 Pantoprazole Sodium (Protonix) 40 mg DAILY PO 08/05/20 09:00 08/07/20 08:31 Simvastatin (Zocor) 20 mg QPM PO 08/05/20 21:00 08/06/20 20:22 Sodium Chloride ([place] Nasal [place]) 2 spray Q2HP PRN NA NASAL DRYNESS 08/07/20 10:30 08/07/20 13:17 Sodium Chloride (Saline Lock Flush) 2 ml ASDIRECTED PRN IV SEE LABEL COMMENTS 08/07/20 08:15 Sodium Chloride (Saline Lock Flush) 2 ml SLF IV 08/07/20 14:00 08/07/20 13:01 Sodium Chloride (Saline Lock Flush) 10 ml ASDIRECTED PRN IV SEE LABEL COMMENTS 08/07/20 11:30 Sodium Chloride (Saline Lock Flush) 10 ml DAILY IV 08/08/20 09:00 Vancomycin HCl 1000 mg/IV Miscellaneous Supplies 1 each/ Dextrose 270 ml @ 270 mls/hr Q12H IV 08/05/20 22:00 08/06/20 07:34 DC 08/05/20 21:17 Allergies Coded Allergies: citalopram (Verified Adverse Reaction, Severe, jittery, 05/12/20) metformin (Verified Adverse Reaction, Severe, nausea, vomiting, 05/12/20) erythromycin base (Verified Adverse Reaction, Intermediate, vomiting, 04/20/20) azithromycin (Verified Adverse Reaction, Unknown, vomiting, 05/12/20) mirtazapine (Verified Adverse Reaction, Unknown, insomnia, 05/12/20) Arlette Morales MD Aug 07, 2020 13:53
[2020-08-07] MEDS ORDERED: FUROSEMIDE 20MG/2ML VIAL (J1940) IV ONE (17:15)
[2020-08-07] MEDS: SIMVASTATIN 20 MG TAB PO SCH (21:24)
[2020-08-08] VITALS: BP 111/61
[2020-08-08 04:00] VITALS: BP 113/64
[2020-08-08] MEDS: methylPREDNISolone 125MG 2ML VIAL IV SCH (04:33)
[2020-08-08] MEDS: SLF 3 ML SYR IV SCH ×3 (04:34→20:31)
[2020-08-08 06:28] LABS: HEMATOCRIT 34.8 % (36.0-47.0); HEMOGLOBIN 10.3 g/dl (12.0-15.5); MEAN CORPUSCULAR HEMOGLOBIN 26.5 pg (27.0-33.0); MEAN CORPUSCULAR HGB CONC 29.6 g/dl (32.0-36.5); MEAN CORPUSCULAR VOLUME 89.5 fl (80.0-96.0); RED BLOOD COUNT 3.89 10^6/uL (4.00-5.40); WHITE BLOOD COUNT 2.8 10^3/uL (4.0-10.0)
[2020-08-08 06:57] LABS: ALBUMIN 2.8 GM/DL (3.2-5.2); ALT/SGPT 15 U/L (12-78); BILIRUBIN,TOTAL 0.6 MG/DL (0.2-1.0); BLOOD UREA NITROGEN 20 MG/DL (7-18); CALCIUM LEVEL 8.6 MG/DL (8.8-10.2); CARBON DIOXIDE LEVEL 35 MEQ/L (21-32); CHLORIDE LEVEL 97 MEQ/L (98-107); CREATININE FOR GFR 0.62 MG/DL (0.55-1.30); GLOMERULAR FILTRATION RATE > 60.0 (>45); GLUCOSE, FASTING 246 MG/DL (70-100); POTASSIUM SERUM 3.4 MEQ/L (3.5-5.1); SODIUM LEVEL 140 MEQ/L (136-145); TOTAL PROTEIN 5.9 GM/DL (6.4-8.2)
[2020-08-08 07:07] LABS: PLATELET COUNT, AUTOMATED 93 10^3/uL (150-450)
[2020-08-08 07:56] VITALS: BP 121/65
[2020-08-08] MEDS: LEVALBUTEROL 1.25 MG/0.5 ML CONCENTRATE NEB NEB SCH ×4 (08:01→19:40)
[2020-08-08] MEDS: HumaLOG INSULIN (NovoLOG) PER UNIT SC SCH ×4 (08:34→20:31)
[2020-08-08] MEDS: predniSONE 20 MG TAB PO SCH (08:35)
[2020-08-08] MEDS: PANTOPRAZOLE 40MG TAB (PROTONIX) PO SCH (08:35)
[2020-08-08] MEDS: FERROUS SULFATE 325MG TAB PO SCH (08:36)
[2020-08-08] MEDS: METOPROLOL SUCC *XL* 25MG TAB (TopROL *XL*) PO SCH (08:36)
[2020-08-08] MEDS: METOPROLOL SUCC *XL* 12.5MG PER 1/2 TAB (TopROL *XL*) PO SCH (08:36)
[2020-08-08] MEDS: SODIUM CHLORIDE 0.9% INJ 10 ML SYR IV SCH (08:37)
[2020-08-08] MEDS ORDERED: FUROSEMIDE 100MG/10ML VIAL (J1940) IV SCH (09:00)
[2020-08-08] MEDS ORDERED: POTASSIUM CHLORIDE 10 MEQ SR TABLET PO ONE (09:00)
[2020-08-08 11:57] VITALS: BP 129/74
--- NOTE | 2020-08-08 15:25 | IPNPDOC ---
Date Seen The patient was seen on 08/08/20. Progress Note SUBJECTIVE: Diuresed 1.4 L/24 H; however, still +3 edema in b/l lower ext. HR 116-122, tolerating higher dose CCB, BP stable. Remains on home amt O2, no incr SOB or chest pain. No diarrhea overnight. OBJECTIVE: PHYSICAL EXAMINATION: VS: Please see below CONSTITUTIONAL: sitting up in bedside chair, comfortable, AAO x 3 EYES: PERRLA, EOM intact HENT, MOUTH: Normocephalic, atraumatic, moist mucous membranes, NC in place NECK: SUPPLE, no JVD, no lymphadenopathy, no carotid bruit CV: tachycardic, Regular rhythm, S1S2 normal, no murmurs/rubs/gallops RESPIRATORY: Decreased crackles in right mid-lower lung, crackles in left lower lung. Decreased exp wheezing b/l, no rales/rhonchi GI: obese, soft, nontender, nondistended, no rebound or guarding, no organomegaly : Deferred MUSCULOSKELETAL: Normal ROM. No cyanosis, clubbing, swelling, joint deformity, +3 lower extremity edema INTEGUMENTARY: Intact, psoriatic lesions on all extremities and abdomen, nontender. no erythema NEUROLOGIC: Cranial Nerves II-XII are intact, no focal deficits PSYCHIATRIC: Mood and affect are normal LABORATORY DATA: Please see below IMAGING: Echocardiogram: Pending CTA chest: 1. No evidence for pulmonary embolus. 2. Postsurgical changes and volume loss to the right hemithorax. 3. Moderate left effusion, scattered patchy airspace disease, perihilar and lower lobe consolidations (right greater than left) and adenopathy again noted and similar to prior examination. 4. Stable upper abdominal findings including ascites and adenopathy again noted and essentially unchanged. CT abd/pelvis: 1. Marked ascites. Cannot exclude scattered adenopathy as well as the possibility of peritoneal soft tissue implants. Evaluation is limited due to the lack of contrast enhancement. 2. Cirrhosis and splenomegaly. 3. Stable simple right renal cysts. 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 metastatic cancer?, HCAP PLAN: Shortness of breath likely multifactorial bilateral pleural effusion, increased abd distension poss 2/2 to worsening cirrhosis vs. metastatic cancer? -More uncomfortable s/p paracentesis -Hx of malignant pericardial effusion, sarcoidosis -Currently on 2 LNC, home amount of O2 -C/w treatment below for individual issues Diarrhea, acute onset -2 BM since midnight; however, states that she sometimes has diarrhea at home -R/o C. diff -F/u GI panel Increased Lower ext swelling, ascites, fluid retention -Net neg of 1.4 L over 24 H, still +3 pitting edema in lower ext -Cr wnl, tolerating BID lasix; however, CO2 increasing -Patient complains of lower ext pain from incr distention of legs due to swelling , heel pain -Decreased to 60 mg IV daily, monitor U/o closely. Will need to be discharged on PO lasix when time comes -Also monitor for s/s of worsening dehydration (i.e. worsening tachycardia) Hypokalemia, acute and likely 2/2 to diuresis -Supplemented 40 mEq today -F/u AM labs Abdominal ascites possibly 2/2 to peritoneal carcinomatosis vs. cirrhosis? -s/p paracentesis with 5.7 L removed, much more comfortable with breathing -No known cirrhosis hx per patient, denies hepatitis hx or alcohol abuse history -Hepatitis panel neg -Ascitic fluid neg for infection, althought fungal cx still pending - not suspicious for SBP currently Abnormal CT chest -WBC wnl, afebrile overnight, currently on 2 L NC, normal amount -Findings on CT similar to last, procalcitonin low so low suspicion for pneumonia -Stopped abx -Monitor respiratory status Bilateral malignant pleural effusions -Improved wheezing on exam but on 2 L NC -On last admission in 06/2020, left effusion was attempted to be drained but not enough fluid present -CTA chest above -Discussed with Dr. Tran (CT surgery), not needing additional drainage at this time of left pleural effusion. If condition worsens, reimage and discuss with him then -C/w drainage of right PleurX catheter home schedule -C/w lasix now daily IV, prednisone daily, levalbuterol PRN and ATC Metastatic adenocarcinoma right lung, extensive per heme/onc -PD L1 25% positive, ROSS1 negative, BRAF positive and ALK-negative. -S/p [address] Gann, s/p 2 doses of keytruda -Discussed with Dr. Regalado, hematology/onc. States prognosis is poor. Attempting several sessions more of chemo likely but if does not respond then prognosis worsens. -At this time, will not officially consult but call if needed. 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 Plan is hopefully discharge after more diuresis, echocardiogram results. VS, I&O, 24H, [facility] Vital Signs/I&O Vital Signs Date Time Temp Pulse Resp B/P (MAP) Pulse Ox O2 Delivery O2 Flow Rate FiO2 08/08/20 12:00 2.0 08/08/20 11:57 97.2 122 19 129/74 (92) 92 Nasal Cannula I&O- Last 24 Hours up to 6 AM 08/08/20 06:00 Intake Total 440 ml Output Total 2550 ml Balance -2110 ml Laboratory Data 24H LABS Laboratory Tests 2 08/07/20 17:05: Bedside Glucose (Misc Panel) 263H 08/07/20 21:19: Bedside Glucose (Misc Panel) 292H 08/08/20 06:15: Nucleated Red Blood Cells % (auto) 0.0, Immature Platelet Fraction 1.9, Anion Gap 8, Glomerular Filtration Rate > 60.0, Calcium Level 8.6L, Total Bilirubin 0.6, Aspartate Amino Transf (AST/SGOT) 13, Alanine Aminotransferase (ALT/SGPT) 15, Alkaline Phosphatase 188H, Total Protein 5.9L, Albumin 2.8L, Albumin/Globulin Ratio 0.9L 08/08/20 11:29: Bedside Glucose (Misc Panel) 294H CBC/BMP Laboratory Tests 08/08/20 06:15 Microbiology Microbiology 08/08/20 Campylobacter (PCR), Received Pending 08/08/20 Clostridium difficile Toxin A&B PCR, Received Pending 08/08/20 Plesiomonas shigelloides (PCR), Received Pending 08/08/20 Salmonella (PCR)(SAL), Received Pending 08/08/20 Vibrio Species (PCR), Received Pending 08/08/20 Vibrio Cholerae (PCR), Received Pending 08/08/20 Yersinia enterocolitica (PCR), Received Pending 08/08/20 Enteroaggregative E. coli (PCR), Received Pending 08/08/20 Enteropathogenic E. coli (PCR), Received Pending 08/08/20 Enterotoxigenic E. coli (PCR), Received Pending 08/08/20 E. coli Shiga-like Toxin (PCR), Received Pending 08/08/20 Escherichia coli 0157 (PCR), Received Pending 08/08/20 Enteroinvasive E. coli/Shigella PCR, Received Pending 08/08/20 Cryptosporidium (PCR), Received Pending 08/08/20 Cyclospora cayetanensis (PCR), Received Pending 08/08/20 Entamoeba histolytica (PCR), Received Pending 08/08/20 Giardia lamblia (PCR), Received Pending 08/08/20 Adenovirus Type F 40/41 (PCR), Received Pending 08/08/20 Astrovirus (PCR), Received Pending 08/08/20 Norovirus GI/GII (PCR), Received Pending 08/08/20 Rotavirus A (PCR), Received Pending 08/08/20 Sapovirus I/II/IV/V (PCR), Received Pending 08/05/20 Acid Fast Stain, Received Pending 08/05/20 Mycobacterial Culture, Received Pending 08/05/20 Fungal Smear, Received Pending 08/05/20 Fungal Culture, Received Pending 08/05/20 Gram Stain - Final, Complete 08/05/20 Body Fluid Culture - Final, Complete 08/05/20 Respiratory Virus Panel (PCR) (SAL) - Final, Complete 08/05/20 Blood Culture - Preliminary, Resulted No Growth after 72 hours. All specime... 08/05/20 Blood Culture - Preliminary, Resulted No Growth after 72 hours. All specime... Current Medications Current Medications Medications (Trade) Dose Ordered Sig/Poli Route PRN Reason Start Time Stop Time Status Last Admin Dose Admin Calcipotriene (Dovonex 0.005%) TO AFFECTED PSORIA... BID PRN TOP PSORIASIS 08/05/20 12:15 Cefepime HCl 1 gm/ Dextrose 50 ml @ 100 mls/hr Q12H IV 08/05/20 12:45 08/05/20 13:05 DC Cefepime HCl 2 gm/ Dextrose 50 ml @ 100 mls/hr Q12H IV 08/05/20 14:00 08/06/20 07:34 DC 08/06/20 03:05 Dextrose (Dextrose 50%) 25 ml ASDIRECTED PRN IV SEE LABEL COMMENTS 08/05/20 12:15 Enoxaparin Sodium (Lovenox) 40 mg DAILY SC 08/05/20 09:00 08/07/20 07:57 DC 08/06/20 12:30 Ferrous Sulfate (Ferrous Sulfate) 325 mg DAILY PO 08/05/20 09:00 08/08/20 08:36 Furosemide (LASIX injection) 40 mg BID@09,17 IV 08/07/20 09:00 08/08/20 07:36 DC 08/07/20 12:03 Furosemide (LASIX injection) 60 mg DAILY IV 08/08/20 09:00 08/08/20 08:35 Glucagon (Glucagon) 1 mg ASDIRECTED PRN SC SEE LABEL COMMENTS 08/05/20 12:15 Glucose (Glucose) 16 GM ASDIRECTED PRN PO SEE LABEL COMMENTS 08/05/20 12:15 Heparin Sodium (Heparin (Flush)) 500 units ASDIRECTED PRN IV SEE LABEL COMMENTS 08/07/20 11:30 Heparin Sodium (Heparin (Flush)) 500 units DAILY IV 08/08/20 09:00 08/08/20 08:37 Home Med (Med Rec Complete!) ASDIRECTED XX 08/05/20 11:30 08/05/20 11:29 DC Insulin Human Lispro (HumaLOG INSULIN) SEE PROTOCOL TABLE AC SC 08/05/20 12:00 08/08/20 12:22 Insulin Human Lispro (HumaLOG INSULIN) SEE PROTOCOL TABLE AC SC 08/05/20 17:30 08/05/20 12:16 DC Insulin Human Lispro (HumaLOG INSULIN) SEE PROTOCOL TABLE QHS SC 08/05/20 21:00 08/07/20 21:24 Levalbuterol HCl (Xopenex Neb) 1.25 mg Q2HP PRN NEB SOB/WHEEZING 08/05/20 12:00 Levalbuterol HCl (Xopenex Neb) 1.25 mg RQID NEB 08/05/20 12:00 08/08/20 11:31 Methylprednisolone (SOLUmedrol) 60 mg Q12H IV 08/07/20 17:00 08/08/20 07:37 DC 08/08/20 04:33 Methylprednisolone (SOLUmedrol) 60 mg Q8H IV 08/05/20 13:00 08/07/20 07:57 DC 08/07/20 04:24 Metoprolol Succinate (TopROL XL) 12.5 mg DAILY PO 08/07/20 09:00 08/08/20 08:36 Metoprolol Succinate (TopROL XL) 25 mg DAILY PO 08/05/20 09:00 08/06/20 15:05 DC 08/06/20 08:32 Metoprolol Succinate (TopROL XL) 25 mg DAILY PO 08/07/20 09:00 08/08/20 08:36 Pantoprazole Sodium (Protonix) 40 mg DAILY PO 08/05/20 09:00 08/08/20 08:35 Prednisone (Deltasone) 60 mg DAILY PO 08/08/20 09:00 08/08/20 08:35 Simvastatin (Zocor) 20 mg QPM PO 08/05/20 21:00 08/07/20 21:24 Sodium Chloride ([place] Nasal [place]) 2 spray Q2HP PRN NA NASAL DRYNESS 08/07/20 10:30 08/07/20 13:17 Sodium Chloride (Saline Lock Flush) 2 ml ASDIRECTED PRN IV SEE LABEL COMMENTS 08/07/20 08:15 Sodium Chloride (Saline Lock Flush) 2 ml SLF IV 08/07/20 14:00 08/08/20 04:34 Sodium Chloride (Saline Lock Flush) 10 ml ASDIRECTED PRN IV SEE LABEL COMMENTS 08/07/20 11:30 Sodium Chloride (Saline Lock Flush) 10 ml DAILY IV 08/08/20 09:00 08/08/20 08:37 Vancomycin HCl 1000 mg/IV Miscellaneous Supplies 1 each/ Dextrose 270 ml @ 270 mls/hr Q12H IV 08/05/20 22:00 08/06/20 07:34 DC 08/05/20 21:17 Allergies Coded Allergies: citalopram (Verified Adverse Reaction, Severe, jittery, 05/12/20) metformin (Verified Adverse Reaction, Severe, nausea, vomiting, 05/12/20) erythromycin base (Verified Adverse Reaction, Intermediate, vomiting, 04/20/20) azithromycin (Verified Adverse Reaction, Unknown, vomiting, 05/12/20) mirtazapine (Verified Adverse Reaction, Unknown, insomnia, 05/12/20) Arlette Morales MD Aug 08, 2020 15:25
[2020-08-08 16:00] VITALS: BP 100/58
[2020-08-08 20:00] VITALS: BP 106/62
[2020-08-08] MEDS: SIMVASTATIN 20 MG TAB PO SCH (20:30)
[2020-08-09] VITALS (7 sets, daily range): BP systolic 88–115; BP diastolic 59–89
[2020-08-09] MEDS: SLF 3 ML SYR IV SCH ×3 (04:41→22:00)
[2020-08-09 06:07] LABS: HEMATOCRIT 34.2 % (36.0-47.0); HEMOGLOBIN 10.3 g/dl (12.0-15.5); MEAN CORPUSCULAR HEMOGLOBIN 27.2 pg (27.0-33.0); MEAN CORPUSCULAR HGB CONC 30.1 g/dl (32.0-36.5); MEAN CORPUSCULAR VOLUME 90.5 fl (80.0-96.0); RED BLOOD COUNT 3.78 10^6/uL (4.00-5.40); WHITE BLOOD COUNT 2.9 10^3/uL (4.0-10.0)
[2020-08-09 06:16] LABS: PLATELET COUNT, AUTOMATED 87 10^3/uL (150-450)
[2020-08-09 06:26] LABS: ALBUMIN 2.8 GM/DL (3.2-5.2); ALT/SGPT 21 U/L (12-78); BILIRUBIN,TOTAL 0.6 MG/DL (0.2-1.0); BLOOD UREA NITROGEN 24 MG/DL (7-18); CALCIUM LEVEL 8.4 MG/DL (8.8-10.2); CARBON DIOXIDE LEVEL 35 MEQ/L (21-32); CHLORIDE LEVEL 95 MEQ/L (98-107); CREATININE FOR GFR 0.79 MG/DL (0.55-1.30); GLOMERULAR FILTRATION RATE > 60.0 (>45); GLUCOSE, FASTING 265 MG/DL (70-100); SODIUM LEVEL 139 MEQ/L (136-145); TOTAL PROTEIN 5.6 GM/DL (6.4-8.2)
[2020-08-09] MEDS: LEVALBUTEROL 1.25 MG/0.5 ML CONCENTRATE NEB NEB SCH ×4 (08:27→19:25)
[2020-08-09] MEDS: FUROSEMIDE 40MG/4ML VIAL (J1940) IV SCH ×2 (08:31→17:25)
[2020-08-09] MEDS: HumaLOG INSULIN (NovoLOG) PER UNIT SC SCH ×4 (08:31→20:17)
[2020-08-09] MEDS: FERROUS SULFATE 325MG TAB PO SCH (08:32)
[2020-08-09] MEDS: predniSONE 20 MG TAB PO SCH (08:32)
[2020-08-09] MEDS: PANTOPRAZOLE 40MG TAB (PROTONIX) PO SCH (08:32)
[2020-08-09] MEDS: METOPROLOL SUCC *XL* 12.5MG PER 1/2 TAB (TopROL *XL*) PO SCH (08:35)
[2020-08-09] MEDS: METOPROLOL SUCC *XL* 25MG TAB (TopROL *XL*) PO SCH (08:35)
[2020-08-09] MEDS ORDERED: POTASSIUM CHLORIDE 10 MEQ SR TABLET PO ONE (09:00)
[2020-08-09] MEDS: SODIUM CHLORIDE 0.9% INJ 10 ML SYR IV SCH (09:00)
[2020-08-09] MEDS ORDERED: ACETAMINOPHEN TAB 650MG DOSE (2X325MG) PO PRN (09:45)
[2020-08-09] MEDS: LEVEMIR (INSULIN DETEMIR) 1 UNITS/0.01ML SC SCH (11:25)
[2020-08-09] MEDS: SPIRONOLACTONE 12.5MG PER 1/2 TABLET PO SCH (11:25)
--- NOTE | 2020-08-09 14:02 | IPNPDOC ---
Date Seen The patient was seen on 08/09/20. Progress Note SUBJECTIVE: -735 ml/24H, still edematous in lower ext, switched back to BID lasix today, watching for alkalosis. HR near baseline at 120. Orders to drain PleurX Q3days given, Dr. Tran follows patient and was updated. Echo pending. Had diarrhea last several days, GI panel pending (send out). Denies incr SOB, fevers, chills, n/v. OBJECTIVE: PHYSICAL EXAMINATION: VS: Please see below CONSTITUTIONAL: sitting up in bed, comfortable, AAO x 3 EYES: PERRLA, EOM intact HENT, MOUTH: Normocephalic, atraumatic, moist mucous membranes, NC in place NECK: SUPPLE, no JVD, no lymphadenopathy, no carotid bruit CV: tachycardic, Regular rhythm, S1S2 normal, no murmurs/rubs/gallops RESPIRATORY: Decreased crackles in right mid-lower lung, crackles in left lower lung. No wheezing b/l, no rales/rhonchi GI: PleurX catheter in place in RUQ abd, obese, soft, nontender, mildly distended, no rebound or guarding, no organomegaly : Deferred MUSCULOSKELETAL: Normal ROM. No cyanosis, clubbing, swelling, joint deformity, +3 lower extremity edema INTEGUMENTARY: Intact, psoriatic lesions on all extremities and abdomen, nontender. no erythema NEUROLOGIC: Cranial Nerves II-XII are intact, no focal deficits PSYCHIATRIC: Mood and affect are normal LABORATORY DATA: Please see below IMAGING: Echocardiogram: Pending CTA chest: 1. No evidence for pulmonary embolus. 2. Postsurgical changes and volume loss to the right hemithorax. 3. Moderate left effusion, scattered patchy airspace disease, perihilar and lower lobe consolidations (right greater than left) and adenopathy again noted and similar to prior examination. 4. Stable upper abdominal findings including ascites and adenopathy again noted and essentially unchanged. CT abd/pelvis: 1. Marked ascites. Cannot exclude scattered adenopathy as well as the possibility of peritoneal soft tissue implants. Evaluation is limited due to the lack of contrast enhancement. 2. Cirrhosis and splenomegaly. 3. Stable simple right renal cysts. 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 metastatic cancer?, HCAP PLAN: Shortness of breath likely multifactorial bilateral pleural effusion, increased abd distension poss 2/2 to worsening cirrhosis vs. metastatic cancer? -S/p paracentesis -Hx of malignant pericardial effusion, sarcoidosis -Currently on 2 LNC, home amount of O2 -C/w treatment below for individual issues Diarrhea, acute onset -2 BM yesterday again; however, states that she sometimes has diarrhea at home -R/o C. diff -F/u GI panel (was sent out) Increased Lower ext swelling, ascites, fluid retention -Net neg >700/24 H, still +3 pitting edema in lower ext -Patient complains of lower ext pain from incr distention of legs due to swelling , heel pain still today -Cr wnl -Restarted BID lasix, monitor for alkalosis closely -C/w monitor U/o closely. Will need to be discharged on PO lasix when time comes -Also monitor for s/s of worsening dehydration (i.e. worsening tachycardia) Hypokalemia, acute and likely 2/2 to diuresis -Supplemented 60 mEq today -F/u AM labs Abdominal ascites possibly 2/2 to peritoneal carcinomatosis vs. cirrhosis? -s/p paracentesis with 5.7 L removed, much more comfortable with breathing -No known cirrhosis hx per patient, denies hepatitis hx or alcohol abuse history -Hepatitis panel neg -Ascitic fluid neg for infection, although fungal cx still pending - not suspicious for SBP currently Abnormal CT chest -WBC wnl, afebrile overnight, currently on 2 L NC, normal amount -Findings on CT similar to last, procalcitonin low so low suspicion for pneumonia -Stopped abx -Monitor respiratory status Bilateral malignant pleural effusions -Improved wheezing on exam but on 2 L NC -On last admission in 06/2020, left effusion was attempted to be drained but not enough fluid present -CTA chest above -Discussed with Dr. Tran (CT surgery), not needing additional drainage at this time of left pleural effusion. If condition worsens, reimage and discuss with him then -C/w drainage of right PleurX catheter Q3Days -C/w lasix BID, levalbuterol PRN and ATC Metastatic adenocarcinoma right lung, extensive per heme/onc -PD L1 25% positive, ROSS1 negative, BRAF positive and ALK-negative. -S/p [address] Gann, s/p 2 doses of keytruda -Discussed with Dr. Regalado, hematology/onc. States prognosis is poor. Attempting several sessions more of chemo likely but if does not respond then prognosis worsens. -At this time, will not officially consult but call if needed. 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 Plan is hopefully discharge after more diuresis, echocardiogram results. VS, I&O, 24H, Fishbone Vital Signs/I&O Vital Signs Date Time Temp Pulse Resp B/P (MAP) Pulse Ox O2 Delivery O2 Flow Rate FiO2 08/09/20 11:40 97.7 117 18 105/63 (77) 99 Nasal Cannula 2.0 I&O- Last 24 Hours up to 6 AM 08/09/20 05:59 Intake Total 840 ml Output Total 1475 ml Balance -635 ml Laboratory Data 24H LABS Laboratory Tests 2 08/08/20 17:15: Bedside Glucose (Misc Panel) 274H 08/08/20 20:26: Bedside Glucose (Misc Panel) 316H 08/09/20 05:46: Nucleated Red Blood Cells % (auto) 0.0, Anion Gap 9, Glomerular Filtration Rate > 60.0, Calcium Level 8.4L, Total Bilirubin 0.6, Aspartate Amino Transf (AST/SGOT) 25, Alanine Aminotransferase (ALT/SGPT) 21, Alkaline Phosphatase 169H, Total Protein 5.6L, Albumin 2.8L, Albumin/Globulin Ratio 1.0L 08/09/20 11:34: Bedside Glucose (Misc Panel) 134H CBC/BMP Laboratory Tests 08/09/20 05:46 Microbiology Microbiology 08/08/20 Campylobacter (PCR), Received Pending 08/08/20 Clostridium difficile Toxin A&B PCR, Received Pending 08/08/20 Plesiomonas shigelloides (PCR), Received Pending 08/08/20 Salmonella (PCR)(SAL), Received Pending 08/08/20 Vibrio Species (PCR), Received Pending 08/08/20 Vibrio Cholerae (PCR), Received Pending 08/08/20 Yersinia enterocolitica (PCR), Received Pending 08/08/20 Enteroaggregative E. coli (PCR), Received Pending 08/08/20 Enteropathogenic E. coli (PCR), Received Pending 08/08/20 Enterotoxigenic E. coli (PCR), Received Pending 08/08/20 E. coli Shiga-like Toxin (PCR), Received Pending 08/08/20 Escherichia coli 0157 (PCR), Received Pending 08/08/20 Enteroinvasive E. coli/Shigella PCR, Received Pending 08/08/20 Cryptosporidium (PCR), Received Pending 08/08/20 Cyclospora cayetanensis (PCR), Received Pending 08/08/20 Entamoeba histolytica (PCR), Received Pending 08/08/20 Giardia lamblia (PCR), Received Pending 08/08/20 Adenovirus Type F 40/41 (PCR), Received Pending 08/08/20 Astrovirus (PCR), Received Pending 08/08/20 Norovirus GI/GII (PCR), Received Pending 08/08/20 Rotavirus A (PCR), Received Pending 08/08/20 Sapovirus I/II/IV/V (PCR), Received Pending 08/05/20 Acid Fast Stain, Received Pending 08/05/20 Mycobacterial Culture, Received Pending 08/05/20 Fungal Smear, Received Pending 08/05/20 Fungal Culture, Received Pending 08/05/20 Gram Stain - Final, Complete 08/05/20 Body Fluid Culture - Final, Complete 08/05/20 Respiratory Virus Panel (PCR) (SAL) - Final, Complete 08/05/20 Blood Culture - Preliminary, Resulted No Growth after 72 hours. All specime... 08/05/20 Blood Culture - Preliminary, Resulted No Growth after 72 hours. All specime... Current Medications Current Medications Medications (Trade) Dose Ordered Sig/Poli Route PRN Reason Start Time Stop Time Status Last Admin Dose Admin Acetaminophen (Tylenol Tab) 650 mg Q4HP PRN PO PAIN OR FEVER 08/09/20 09:45 08/09/20 11:26 Calcipotriene (Dovonex 0.005%) TO AFFECTED PSORIA... BID PRN TOP PSORIASIS 08/05/20 12:15 Cefepime HCl 1 gm/ Dextrose 50 ml @ 100 mls/hr Q12H IV 08/05/20 12:45 08/05/20 13:05 DC Cefepime HCl 2 gm/ Dextrose 50 ml @ 100 mls/hr Q12H IV 08/05/20 14:00 08/06/20 07:34 DC 08/06/20 03:05 Dextrose (Dextrose 50%) 25 ml ASDIRECTED PRN IV SEE LABEL COMMENTS 08/05/20 12:15 Enoxaparin Sodium (Lovenox) 40 mg DAILY SC 08/05/20 09:00 08/07/20 07:57 DC 08/06/20 12:30 Ferrous Sulfate (Ferrous Sulfate) 325 mg DAILY PO 08/05/20 09:00 08/09/20 08:32 Furosemide (LASIX injection) 40 mg BID@09,17 IV 08/07/20 09:00 08/08/20 07:36 DC 08/07/20 12:03 Furosemide (LASIX injection) 40 mg BID@0900,1700 IV 08/09/20 09:00 08/09/20 08:31 Furosemide (LASIX injection) 60 mg DAILY IV 08/08/20 09:00 08/09/20 07:45 DC 08/08/20 08:35 Glucagon (Glucagon) 1 mg ASDIRECTED PRN SC SEE LABEL COMMENTS 08/05/20 12:15 Glucose (Glucose) 16 GM ASDIRECTED PRN PO SEE LABEL COMMENTS 08/05/20 12:15 Heparin Sodium (Heparin (Flush)) 500 units ASDIRECTED PRN IV SEE LABEL COMMENTS 08/07/20 11:30 Heparin Sodium (Heparin (Flush)) 500 units DAILY IV 08/08/20 09:00 08/08/20 08:37 Home Med (Med Rec Complete!) ASDIRECTED XX 08/05/20 11:30 08/05/20 11:29 DC Insulin Detemir (Levemir Insulin) 10 units QAM SC 08/09/20 09:00 08/09/20 11:25 Insulin Human Lispro (HumaLOG INSULIN) SEE PROTOCOL TABLE AC SC 08/05/20 12:00 08/09/20 12:59 Insulin Human Lispro (HumaLOG INSULIN) SEE PROTOCOL TABLE AC SC 08/05/20 17:30 08/05/20 12:16 DC Insulin Human Lispro (HumaLOG INSULIN) SEE PROTOCOL TABLE QHS SC 08/05/20 21:00 08/08/20 20:31 Levalbuterol HCl (Xopenex Neb) 1.25 mg Q2HP PRN NEB SOB/WHEEZING 08/05/20 12:00 08/09/20 04:40 Levalbuterol HCl (Xopenex Neb) 1.25 mg RQID NEB 08/05/20 12:00 08/09/20 11:37 Methylprednisolone (SOLUmedrol) 60 mg Q12H IV 08/07/20 17:00 08/08/20 07:37 DC 08/08/20 04:33 Methylprednisolone (SOLUmedrol) 60 mg Q8H IV 08/05/20 13:00 08/07/20 07:57 DC 08/07/20 04:24 Metoprolol Succinate (TopROL XL) 12.5 mg DAILY PO 08/07/20 09:00 08/08/20 08:36 Metoprolol Succinate (TopROL XL) 25 mg DAILY PO 08/05/20 09:00 08/06/20 15:05 DC 08/06/20 08:32 Metoprolol Succinate (TopROL XL) 25 mg DAILY PO 08/07/20 09:00 08/08/20 08:36 Pantoprazole Sodium (Protonix) 40 mg DAILY PO 08/05/20 09:00 08/09/20 08:32 Prednisone (Deltasone) 60 mg DAILY PO 08/08/20 09:00 08/09/20 08:32 Simvastatin (Zocor) 20 mg QPM PO 08/05/20 21:00 08/08/20 20:30 Sodium Chloride ([place] Nasal [place]) 2 spray Q2HP PRN NA NASAL DRYNESS 08/07/20 10:30 08/07/20 13:17 Sodium Chloride (Saline [place] Flush) 2 ml ASDIRECTED PRN IV SEE LABEL COMMENTS 08/07/20 08:15 Sodium Chloride (Saline Lock Flush) 2 ml SLF IV 08/07/20 14:00 08/09/20 04:41 Sodium Chloride (Saline Lock Flush) 10 ml ASDIRECTED PRN IV SEE LABEL COMMENTS 08/07/20 11:30 Sodium Chloride (Saline Lock Flush) 10 ml DAILY IV 08/08/20 09:00 08/08/20 08:37 Spironolactone (Aldactone) 12.5 mg DAILY PO 08/09/20 09:00 08/09/20 11:25 Vancomycin HCl 1000 mg/IV Miscellaneous Supplies 1 each/ Dextrose 270 ml @ 270 mls/hr Q12H IV 08/05/20 22:00 08/06/20 07:34 DC 08/05/20 21:17 Allergies Coded Allergies: citalopram (Verified Adverse Reaction, Severe, jittery, 05/12/20) metformin (Verified Adverse Reaction, Severe, nausea, vomiting, 05/12/20) erythromycin base (Verified Adverse Reaction, Intermediate, vomiting, 04/20/20) azithromycin (Verified Adverse Reaction, Unknown, vomiting, 05/12/20) mirtazapine (Verified Adverse Reaction, Unknown, insomnia, 05/12/20) Arlette Morales MD Aug 09, 2020 14:02
[2020-08-09] MEDS: SIMVASTATIN 20 MG TAB PO SCH (20:16)
[2020-08-10] VITALS: BP 118/62
[2020-08-10 04:00] VITALS: BP 110/62
[2020-08-10 04:23] LABS: HEMATOCRIT 33.9 % (36.0-47.0); HEMOGLOBIN 10.1 g/dl (12.0-15.5); MEAN CORPUSCULAR HEMOGLOBIN 26.9 pg (27.0-33.0); MEAN CORPUSCULAR HGB CONC 29.8 g/dl (32.0-36.5); MEAN CORPUSCULAR VOLUME 90.4 fl (80.0-96.0); RED BLOOD COUNT 3.75 10^6/uL (4.00-5.40); WHITE BLOOD COUNT 2.9 10^3/uL (4.0-10.0)
[2020-08-10 04:25] LABS: PLATELET COUNT, AUTOMATED 79 10^3/uL (150-450)
[2020-08-10 04:52] LABS: ALBUMIN 2.7 GM/DL (3.2-5.2); ALT/SGPT 24 U/L (12-78); BILIRUBIN,TOTAL 0.6 MG/DL (0.2-1.0); BLOOD UREA NITROGEN 25 MG/DL (7-18); CALCIUM LEVEL 8.2 MG/DL (8.8-10.2); CARBON DIOXIDE LEVEL 39 MEQ/L (21-32); CHLORIDE LEVEL 96 MEQ/L (98-107); CREATININE FOR GFR 0.73 MG/DL (0.55-1.30); GLOMERULAR FILTRATION RATE > 60.0 (>45); GLUCOSE, FASTING 151 MG/DL (70-100); POTASSIUM SERUM 3.5 MEQ/L (3.5-5.1); SODIUM LEVEL 139 MEQ/L (136-145); TOTAL PROTEIN 5.6 GM/DL (6.4-8.2)
[2020-08-10] MEDS: SLF 3 ML SYR IV SCH (04:58)
[2020-08-10] MEDS: LEVALBUTEROL 1.25 MG/0.5 ML CONCENTRATE NEB NEB SCH ×4 (07:17→19:41)
[2020-08-10 08:00] VITALS: BP 120/65
[2020-08-10] MEDS: SPIRONOLACTONE 12.5MG PER 1/2 TABLET PO SCH (08:54)
[2020-08-10] MEDS: METOPROLOL SUCC *XL* 25MG TAB (TopROL *XL*) PO SCH (08:57)
[2020-08-10] MEDS: METOPROLOL SUCC *XL* 12.5MG PER 1/2 TAB (TopROL *XL*) PO SCH (08:57)
[2020-08-10] MEDS: PANTOPRAZOLE 40MG TAB (PROTONIX) PO SCH (08:58)
[2020-08-10] MEDS: FERROUS SULFATE 325MG TAB PO SCH (08:59)
[2020-08-10] MEDS: FUROSEMIDE 40MG/4ML VIAL (J1940) IV SCH ×2 (09:00→17:36)
[2020-08-10] MEDS: LEVEMIR (INSULIN DETEMIR) 1 UNITS/0.01ML SC SCH (09:00)
[2020-08-10] MEDS: HumaLOG INSULIN (NovoLOG) PER UNIT SC SCH ×4 (09:02→20:01)
--- NOTE | 2020-08-10 09:45 | ECHO ---
DATE OF PROCEDURE: 08/05/2020 Age: 64 Gender: Female Height: 60 inches Weight: 189 pounds Body surface area: 1.82 m2 PATIENT LOCATION: Inpatient progressive care unit (PCU), Room 3223. REFERRING PHYSICIAN: Arlette Morales M.D. INDICATION: Pericardial effusion. Follow-up study. MEASUREMENTS: 2D Measurements: RV 3.2 cm LV 3.0 cm Septum 1.0 cm Posterior wall 1.0 cm Aortic Root 3.0 cm LA 3.6 cm LVEF 75% Doppler Measurements: AV 1.19 m/s LVOT 0.9 m/s LVOT diameter 1.8 cm MV both early and late diastolic filling patterns were superimposed because of sinus tachycardia. PV 0.9 m/s Pulmonary artery acceleration time 71 msec RVSP 49 mmHg IVC 1.8 cm COMMENTS: Sinus tachycardia without intraventricular conduction disturbance. Technically challenging study in light of her body habitus, but some diagnostically useful information was still obtained. Normal left ventricular size and wall thickness with hyperkinetic wall motion; except for the distal septum. Normal left atrial size, but unable to evaluate left ventricular diastolic function or estimate mean left atrial pressure because of superimposed early and late diastolic filling patterns with her sinus tachycardia. Right ventricle upper limits of normal with borderline right ventricular free wall hypertrophy with normal wall motion and Doppler evidence of at least moderate pulmonary hypertension. Left atrium appeared to be upper limits of normal with normal IVC size at this time and normal respiratory collapse against an elevated central venous pressure. Normal aortic dimensions. Aortic valvular sclerosis without stenosis or insufficiency. Mild degenerative changes of the mitral valve apparatus and mitral annulus with adequate leaflet excursion and only very mild insufficiency. Normal appearing tricuspid valve with at least mild insufficiency. No apparent intracardiac mass. Miniscule posterior pericardial effusion measuring 0.3 cm. Comparing todays study with 06/06/2020, the degree of pericardial fluid has further decreased. MTDD
--- NOTE | 2020-08-10 11:28 | REP ---
INDICATION: RLE swelling, DVT COMPARISON: Pain and swelling TECHNIQUE: Ellis scale and color Doppler evaluation using linear high frequency transducer. FINDINGS: Ultrasound examination of the right lower extremity deep venous structures from the common femoral vein to the popliteal vein demonstrates normal compressibility flow and wave patterns in response to respiration and augmentation. There is no evidence for deep venous thrombosis. IMPRESSION: No evidence for deep venous thrombosis. <Electronically signed by Tomi Tejeda > 08/10/20 1124
[2020-08-10 12:00] VITALS: BP 94/63
[2020-08-10 16:00] VITALS: BP 99/58
--- NOTE | 2020-08-10 16:22 | IPNPDOC ---
Date Seen The patient was seen on 08/10/20. Progress Note SUBJECTIVE: Improved diuresis with BID lasix, watching for increasing alkalosis. Echo improved from prior on file. GI panel still pending. Denies incr SOB, fevers, chills, n/v. OBJECTIVE: PHYSICAL EXAMINATION: VS: Please see below CONSTITUTIONAL: sitting up in bed, comfortable, AAO x 3 EYES: PERRLA, EOM intact HENT, MOUTH: Normocephalic, atraumatic, moist mucous membranes, NC in place NECK: SUPPLE, no JVD, no lymphadenopathy, no carotid bruit CV: tachycardic, Regular rhythm, S1S2 normal, no murmurs/rubs/gallops RESPIRATORY: Decreased crackles in right mid-lower lung, crackles in left lower lung. No wheezing b/l, no rales/rhonchi GI: PleurX catheter in place in RUQ abd, obese, soft, nontender, mildly distended, no rebound or guarding, no organomegaly : Deferred MUSCULOSKELETAL: Normal ROM. No cyanosis, clubbing, swelling, joint deformity, +3 lower extremity edema INTEGUMENTARY: Intact, psoriatic lesions on all extremities and abdomen, nontender. no erythema NEUROLOGIC: Cranial Nerves II-XII are intact, no focal deficits PSYCHIATRIC: Mood and affect are normal LABORATORY DATA: Please see below IMAGING: Echocardiogram from 08/05/20: EF 75% Sinus tachycardia without intraventricular conduction disturbance. Technically challenging study in light of her body habitus, but some diagnostically useful information was still obtained. Normal left ventricular size and wall thickness with hyperkinetic wall motion; except for the distal septum. Normal left atrial size, but unable to evaluate left ventricular diastolic function or estimate mean left atrial pressure because of superimposed early andl ate diastolic filling patterns with her sinus tachycardia. Right ventricle upper limits of normal with borderline right ventricular free wall hypertrophy with normal wall motion and Doppler evidence of at least moderate pulmonary hypertension. Left atrium appeared to be upper limits of normal with normal IVC size at this time and normal respiratory collapse against an elevated central venous pressure. Normal aortic dimensions. Aortic valvular sclerosis without stenosis or insufficiency. Mild degenerative changes of the mitral valve apparatus and mitral annulus with adequate leaflet excursion and only very mild insufficiency. Normal appearing tricuspid valve with at least mild insufficiency. No apparent intracardiac mass. Miniscule posterior pericardial effusion measuring 0.3 cm. Comparing todays study with 06/06/2020, the degree of pericardial fluid has further decreased. RLE doppler 08/10/20: Neg for DVT CTA chest: 1. No evidence for pulmonary embolus. 2. Postsurgical changes and volume loss to the right hemithorax. 3. Moderate left effusion, scattered patchy airspace disease, perihilar and lower lobe consolidations (right greater than left) and adenopathy again noted and similar to prior examination. 4. Stable upper abdominal findings including ascites and adenopathy again noted and essentially unchanged. CT abd/pelvis: 1. Marked ascites. Cannot exclude scattered adenopathy as well as the possibility of peritoneal soft tissue implants. Evaluation is limited due to the lack of contrast enhancement. 2. Cirrhosis and splenomegaly. 3. Stable simple right renal cysts. 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 metastatic cancer?, HCAP PLAN: Shortness of breath likely multifactorial bilateral pleural effusion, increased abd distension poss 2/2 to worsening cirrhosis vs. metastatic cancer? -S/p paracentesis this hospital stay with improvement of breathing -Hx of malignant pericardial effusion (improving from echo above), sarcoidosis -Currently on 2 LNC, home amount of O2 -C/w treatment below for individual issues Increased Lower ext swelling, ascites, fluid retention. ? cirrhosis on scans -Neg 1.46L/24 H, still +3 pitting edema in lower ext with left leg much less than right today -Doppler RLE: neg for DVT -Patient complains of lower ext pain from incr distention of legs due to swelling , heel pain still today -Cr wnl -Recommend c/w BID lasix, monitor for alkalosis closely. Would benefit from continued diuresis before returning home -C/w monitor U/o closely. Will need to be discharged on PO lasix -Also monitor for s/s of worsening dehydration (i.e. worsening tachycardia- baseline tachycardia with HR 120's ) Diarrhea, acute onset -0 BM yesterday again; however, states that she sometimes has diarrhea at home -R/o C. diff -F/u GI panel (was sent out) Abdominal ascites possibly 2/2 to peritoneal carcinomatosis vs. cirrhosis? -s/p paracentesis with 5.7 L removed, much more comfortable with breathing -No known cirrhosis hx per patient, denies hepatitis hx or alcohol abuse history -Hepatitis panel neg -Ascitic fluid neg for infection, although fungal cx still pending - not suspicious for SBP currently Hypokalemia, acute and likely 2/2 to diuresis- resolved -Supplemented 60 mEq 08/09/20 -K normal today -If need to supplement, please give liquid -F/u AM labs Sinus tachycardia, chronic -When trending prior admissions, patient has had persistent tachycardia -Does not follow with [employer] -Added and will c/w toprol XL to 37 mg Po daily Abnormal CT chest -WBC wnl, afebrile overnight, currently on 2 L NC, normal amount -Findings on CT similar to last, procalcitonin low so low suspicion for pneumonia -Stopped abx -Monitor respiratory status Bilateral malignant pleural effusions -Improved wheezing on exam but on 2 L NC -On last admission in 06/2020, left effusion was attempted to be drained but not enough fluid present -CTA chest above -Discussed with Dr. Tran (CT surgery), not needing additional drainage at this time of left pleural effusion. If condition worsens, reimage and discuss with him then. He is planning on removing PleurX soon as o/p since drainage has been minimal (last 25 mL) -C/w drainage of right PleurX catheter Q3Days -C/w lasix BID, levalbuterol PRN and ATC Metastatic adenocarcinoma right lung, extensive per heme/onc -PD L1 25% positive, ROSS1 negative, BRAF positive and ALK-negative. -S/p [address] Gann, s/p 2 doses of keytruda -Discussed with Dr. Regalado, hematology/onc. States prognosis is poor. Attempting several sessions more of chemo likely but if does not respond then prognosis worsens. -At this time, will not officially consult but call if needed. -DNR/DNI Hx of malignant pericardial effusion -Improved per new echo above -F/u o/p HTN -Slightly lower than normal, montoring closely -Stable -C/w home med DM type II -Better controlled withstopping steroids and adding levemir -Consistent carb diet -C/w AM levemir, ISS, FS AC/HS -Stopping steroids today so should see numbers improve Cirrhotic changes of liver -No documented cirrhosis hx, no alcohol abuse or hepatitis history -Likely contributing to ascites that needed to be drained -Albumin >2.5 -Hepatitis neg -Ascitic fluid not infected -F/u with PCP GERD -PPI DVT px -Enoxaparin DISPOSITION: Admitted as acute inpatient status. Plan is discharge home after aggressive diuresis with IV lasix . VS, I&O, 24H, Fishbone Vital Signs/I&O Vital Signs Date Time Temp Pulse Resp B/P (MAP) Pulse Ox O2 Delivery O2 Flow Rate FiO2 08/10/20 16:00 98.3 114 18 99/58 (72) 98 Nasal Cannula 2.0 I&O- Last 24 Hours up to 6 AM 08/10/20 06:00 Intake Total 790 ml Output Total 1850 ml Balance -1060 ml Laboratory Data 24H LABS Laboratory Tests 2 08/09/20 16:55: Bedside Glucose (Misc Panel) 231H 08/09/20 20:07: Bedside Glucose (Misc Panel) 298H 08/10/20 04:15: Nucleated Red Blood Cells % (auto) 0.0, Immature Platelet Fraction 3.1, Anion Gap 4L, Glomerular Filtration Rate > 60.0, Calcium Level 8.2L, Total Bilirubin 0.6, Aspartate Amino Transf (AST/SGOT) 27, Alanine Aminotransferase (ALT/SGPT) 24, Alkaline Phosphatase 158H, Total Protein 5.6L, Albumin 2.7L, Albumin/Globulin Ratio 0.9L 08/10/20 08:57: Bedside Glucose (Misc Panel) 178H 08/10/20 12:07: Bedside Glucose (Misc Panel) 161H CBC/BMP Laboratory Tests 08/10/20 04:15 Microbiology Microbiology 08/08/20 Campylobacter (PCR), Received Pending 08/08/20 Clostridium difficile Toxin A&B PCR, Received Pending 08/08/20 Plesiomonas shigelloides (PCR), Received Pending 08/08/20 Salmonella (PCR)(SAL), Received Pending 08/08/20 Vibrio Species (PCR), Received Pending 08/08/20 Vibrio Cholerae (PCR), Received Pending 08/08/20 Yersinia enterocolitica (PCR), Received Pending 08/08/20 Enteroaggregative E. coli (PCR), Received Pending 08/08/20 Enteropathogenic E. coli (PCR), Received Pending 08/08/20 Enterotoxigenic E. coli (PCR), Received Pending 08/08/20 E. coli Shiga-like Toxin (PCR), Received Pending 08/08/20 Escherichia coli 0157 (PCR), Received Pending 08/08/20 Enteroinvasive E. coli/Shigella PCR, Received Pending 08/08/20 Cryptosporidium (PCR), Received Pending 08/08/20 Cyclospora cayetanensis (PCR), Received Pending 08/08/20 Entamoeba histolytica (PCR), Received Pending 08/08/20 Giardia lamblia (PCR), Received Pending 08/08/20 Adenovirus Type F 40/41 (PCR), Received Pending 08/08/20 Astrovirus (PCR), Received Pending 08/08/20 Norovirus GI/GII (PCR), Received Pending 08/08/20 Rotavirus A (PCR), Received Pending 08/08/20 Sapovirus I/II/IV/V (PCR), Received Pending 08/05/20 Acid Fast Stain, Received Pending 08/05/20 Mycobacterial Culture, Received Pending 08/05/20 Fungal Smear, Received Pending 08/05/20 Fungal Culture, Received Pending 08/05/20 Gram Stain - Final, Complete 08/05/20 Body Fluid Culture - Final, Complete 08/05/20 Respiratory Virus Panel (PCR) (SAL) - Final, Complete 08/05/20 Blood Culture - Final, Complete NO GROWTH AFTER 5 DAYS 08/05/20 Blood Culture - Final, Complete NO GROWTH AFTER 5 DAYS Current Medications Current Medications Medications (Trade) Dose Ordered Sig/Poli Route PRN Reason Start Time Stop Time Status Last Admin Dose Admin Acetaminophen (Tylenol Tab) 650 mg Q4HP PRN PO PAIN OR FEVER 08/09/20 09:45 08/09/20 11:26 Calcipotriene (Dovonex 0.005%) TO AFFECTED PSORIA... BID PRN TOP PSORIASIS 08/05/20 12:15 Cefepime HCl 1 gm/ Dextrose 50 ml @ 100 mls/hr Q12H IV 08/05/20 12:45 08/05/20 13:05 DC Cefepime HCl 2 gm/ Dextrose 50 ml @ 100 mls/hr Q12H IV 08/05/20 14:00 08/06/20 07:34 DC 08/06/20 03:05 Dextrose (Dextrose 50%) 25 ml ASDIRECTED PRN IV SEE LABEL COMMENTS 08/05/20 12:15 Enoxaparin Sodium (Lovenox) 40 mg DAILY SC 08/05/20 09:00 08/07/20 07:57 DC 08/06/20 12:30 Ferrous Sulfate (Ferrous Sulfate) 325 mg DAILY PO 08/05/20 09:00 08/10/20 08:59 Furosemide (LASIX injection) 40 mg BID@09,17 IV 08/07/20 09:00 08/08/20 07:36 DC 08/07/20 12:03 Furosemide (LASIX injection) 40 mg BID@0900,1700 IV 08/09/20 09:00 08/10/20 09:00 Furosemide (LASIX injection) 60 mg DAILY IV 08/08/20 09:00 08/09/20 07:45 DC 08/08/20 08:35 Glucagon (Glucagon) 1 mg ASDIRECTED PRN SC SEE LABEL COMMENTS 08/05/20 12:15 Glucose (Glucose) 16 GM ASDIRECTED PRN PO SEE LABEL COMMENTS 08/05/20 12:15 Heparin Sodium (Heparin (Flush)) 500 units ASDIRECTED PRN IV SEE LABEL COMMENTS 08/07/20 11:30 Heparin Sodium (Heparin (Flush)) 500 units DAILY IV 08/08/20 09:00 08/10/20 09:06 Home Med (Med Rec Complete!) ASDIRECTED XX 08/05/20 11:30 08/05/20 11:29 DC Insulin Detemir (Levemir Insulin) 10 units QAM SC 08/09/20 09:00 08/10/20 09:00 Insulin Human Lispro (HumaLOG INSULIN) SEE PROTOCOL TABLE AC SC 08/05/20 12:00 08/10/20 12:20 Insulin Human Lispro (HumaLOG INSULIN) SEE PROTOCOL TABLE AC SC 08/05/20 17:30 08/05/20 12:16 DC Insulin Human Lispro (HumaLOG INSULIN) SEE PROTOCOL TABLE QHS SC 08/05/20 21:00 08/09/20 20:17 Levalbuterol HCl (Xopenex Neb) 1.25 mg Q2HP PRN NEB SOB/WHEEZING 08/05/20 12:00 08/09/20 04:40 Levalbuterol HCl (Xopenex Neb) 1.25 mg RQID NEB 08/05/20 12:00 08/10/20 15:06 Methylprednisolone (SOLUmedrol) 60 mg Q12H IV 08/07/20 17:00 08/08/20 07:37 DC 08/08/20 04:33 Methylprednisolone (SOLUmedrol) 60 mg Q8H IV 08/05/20 13:00 08/07/20 07:57 DC 08/07/20 04:24 Metoprolol Succinate (TopROL XL) 12.5 mg DAILY PO 08/07/20 09:00 08/10/20 08:57 Metoprolol Succinate (TopROL XL) 25 mg DAILY PO 08/05/20 09:00 08/06/20 15:05 DC 08/06/20 08:32 Metoprolol Succinate (TopROL XL) 25 mg DAILY PO 08/07/20 09:00 08/10/20 08:57 Pantoprazole Sodium (Protonix) 40 mg DAILY PO 08/05/20 09:00 08/10/20 08:58 Prednisone (Deltasone) 60 mg DAILY PO 08/08/20 09:00 08/09/20 14:01 DC 08/09/20 08:32 Simvastatin (Zocor) 20 mg QPM PO 08/05/20 21:00 08/09/20 20:16 Sodium Chloride ([place] Nasal [place]) 2 spray Q2HP PRN NA NASAL DRYNESS 08/07/20 10:30 08/07/20 13:17 Sodium Chloride ([place] Flush) 2 ml ASDIRECTED PRN IV SEE LABEL COMMENTS 08/07/20 08:15 08/10/20 15:13 DC Sodium Chloride (Saline Lock Flush) 2 ml SLF IV 08/07/20 14:00 08/10/20 15:13 DC 08/10/20 04:58 Sodium Chloride (Saline Lock Flush) 10 ml ASDIRECTED PRN IV SEE LABEL COMMENTS 08/07/20 11:30 Sodium Chloride (Saline Lock Flush) 10 ml DAILY IV 08/08/20 09:00 08/09/20 09:00 Spironolactone (Aldactone) 12.5 mg DAILY PO 08/09/20 09:00 08/10/20 08:54 Vancomycin HCl 1000 mg/IV Miscellaneous Supplies 1 each/ Dextrose 270 ml @ 270 mls/hr Q12H IV 08/05/20 22:00 08/06/20 07:34 DC 08/05/20 21:17 Allergies Coded Allergies: citalopram (Verified Adverse Reaction, Severe, jittery, 05/12/20) metformin (Verified Adverse Reaction, Severe, nausea, vomiting, 05/12/20) erythromycin base (Verified Adverse Reaction, Intermediate, vomiting, 04/20/20) azithromycin (Verified Adverse Reaction, Unknown, vomiting, 05/12/20) mirtazapine (Verified Adverse Reaction, Unknown, insomnia, 05/12/20) Arlette Morales MD Aug 10, 2020 16:22
[2020-08-10] MEDS: SODIUM CHLORIDE 0.9% INJ 10 ML SYR IV PRN ×2 (17:46→20:20)
[2020-08-10] MEDS ORDERED: ONDANSETRON 4MG/2ML VIAL IV SCH (18:45)
[2020-08-10] MEDS ORDERED: ONDANSETRON 4MG/2ML VIAL IV PRN (19:00)
[2020-08-10 20:00] VITALS: BP 103/62
[2020-08-10] MEDS: SIMVASTATIN 20 MG TAB PO SCH (20:01)
[2020-08-11] VITALS: BP 92/50
[2020-08-11 04:00] VITALS: BP 97/59
[2020-08-11 05:42] LABS: HEMATOCRIT 36.9 % (36.0-47.0); HEMOGLOBIN 11.2 g/dl (12.0-15.5); MEAN CORPUSCULAR HEMOGLOBIN 27.6 pg (27.0-33.0); MEAN CORPUSCULAR HGB CONC 30.4 g/dl (32.0-36.5); MEAN CORPUSCULAR VOLUME 90.9 fl (80.0-96.0); RED BLOOD COUNT 4.06 10^6/uL (4.00-5.40); WHITE BLOOD COUNT 3.9 10^3/uL (4.0-10.0)
[2020-08-11 05:46] LABS: PLATELET COUNT, AUTOMATED 79 10^3/uL (150-450)
[2020-08-11] MEDS: SODIUM CHLORIDE 0.9% INJ 10 ML SYR IV PRN (06:13)
[2020-08-11 06:14] LABS: ALBUMIN 2.8 GM/DL (3.2-5.2); ALT/SGPT 25 U/L (12-78); BILIRUBIN,TOTAL 0.9 MG/DL (0.2-1.0); BLOOD UREA NITROGEN 27 MG/DL (7-18); CALCIUM LEVEL 8.5 MG/DL (8.8-10.2); CARBON DIOXIDE LEVEL 39 MEQ/L (21-32); CHLORIDE LEVEL 94 MEQ/L (98-107); GLOMERULAR FILTRATION RATE > 60.0 (>45); GLUCOSE, FASTING 144 MG/DL (70-100); POTASSIUM SERUM 3.2 MEQ/L (3.5-5.1); SODIUM LEVEL 139 MEQ/L (136-145); TOTAL PROTEIN 5.2 GM/DL (6.4-8.2)
[2020-08-11] MEDS: LEVALBUTEROL 1.25 MG/0.5 ML CONCENTRATE NEB NEB SCH ×4 (07:35→20:13)
[2020-08-11 07:55] LABS: MAGNESIUM LEVEL 1.7 MG/DL (1.8-2.4)
[2020-08-11 08:00] VITALS: BP 99/62
[2020-08-11] MEDS: HumaLOG INSULIN (NovoLOG) PER UNIT SC SCH ×4 (08:12→20:39)
[2020-08-11] MEDS: PANTOPRAZOLE 40MG TAB (PROTONIX) PO SCH (08:13)
[2020-08-11] MEDS: FERROUS SULFATE 325MG TAB PO SCH (08:13)
[2020-08-11] MEDS: SPIRONOLACTONE 12.5MG PER 1/2 TABLET PO SCH (08:13)
[2020-08-11] MEDS: LEVEMIR (INSULIN DETEMIR) 1 UNITS/0.01ML SC SCH (08:14)
[2020-08-11] MEDS: SODIUM CHLORIDE 0.9% INJ 10 ML SYR IV SCH (08:14)
[2020-08-11] MEDS: METOPROLOL SUCC *XL* 12.5MG PER 1/2 TAB (TopROL *XL*) PO SCH (09:00)
[2020-08-11] MEDS: NYSTATIN 100,000 UNITS/GM TOPICAL PWD 15 GM TOP SCH ×2 (09:00→20:39)
[2020-08-11] MEDS: FUROSEMIDE 40MG/4ML VIAL (J1940) IV SCH ×2 (09:00→17:41)
[2020-08-11] MEDS: METOPROLOL SUCC *XL* 25MG TAB (TopROL *XL*) PO SCH (09:00)
[2020-08-11] MEDS ORDERED: MAG SULF 1GM/100ML (MAG RUN) 1 GM in IV 1 EA IV ONE (09:30)
[2020-08-11] MEDS ORDERED: POTASSIUM CHLORIDE 10% LIQ 20 MEQ/15 ML UDC PO ONE (09:30)
--- NOTE | 2020-08-11 09:42 | IPNPDOC ---
Text Note Date of Service The patient was seen on 08/11/20. NOTE SUBJECTIVE: Patient seen and examined at bedside. No acute overnight events reported. Patient has no new medical complaints this morning. 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 metastatic cancer?, HCAP #SOB - likely multifactorial bilateral pleural effusion, increased abd distension poss 2/2 to worsening cirrhosis vs. metastatic cancer? -S/p paracentesis this hospital stay with improvement of breathing -Hx of malignant pericardial effusion (improving from echo above), sarcoidosis -Currently on 2L - baseline -C/w treatment below for individual issues #Diarrhea - resolved - GI panel pending #Abdominal ascites possibly 2/2 to peritoneal carcinomatosis vs. cirrhosis? -s/p paracentesis with 5.7 L removed, much more comfortable with breathing -No known cirrhosis hx per patient, denies hepatitis hx or alcohol abuse history -Hepatitis panel neg -Ascitic fluid neg for infection, although fungal cx still pending - not suspicious for SBP currently #Hypokalemia, acute and likely 2/2 to diuresis -replete as needed #Abnormal CT chest -Findings on CT similar to last, procalcitonin low so low suspicion for p neumonia -Stopped abx -Monitor respiratory status #Bilateral malignant pleural effusions -Improved wheezing on exam but on 2 L NC -On last admission in 06/2020, left effusion was attempted to be drained but not enough fluid present -CTA chest above -Discussed with Dr. Tran (CT surgery), not needing additional drainage at this time of left pleural effusion. If condition worsens, re-image and discuss with him then. -C/w drainage of right PleurX catheter Q3Days - to follow up as outpatient for removal -C/w lasix BID, levalbuterol PRN and ATC #Metastatic adenocarcinoma right lung, extensive per heme/onc -PD L1 25% positive, ROSS1 negative, BRAF positive and ALK-negative. -S/p [address] Gann, s/p 2 doses of keytruda -Discussed with Dr. Regalado, hematology/onc. States prognosis is poor. Attempting several sessions more of chemo likely but if does not respond then prognosis worsens. -At this time, will not officially consult but call if needed. -DNR/DNI #Hx of malignant pericardial effusion -Improved per new echo above -F/u o/p #HTN -C/w home med #anxiety/depression - takes Viibryd 40mg daily at home - d/w pharmacy regarding substitute - #DM type II -Better controlled withstopping steroids and adding levemir -Consistent carb diet -C/w AM levemir, ISS, FS AC/HS #Cirrhotic changes of liver -No documented cirrhosis hx, no alcohol abuse or hepatitis history -Likely contributing to ascites that needed to be drained -Albumin >2.5 -Hepatitis neg -Ascitic fluid not infected -F/u with PCP #GERD -PPI #DVT px -Enoxaparin DISPOSITION: pending clinical improvement, PT/OT, IV lasix VS,Fishbone, I+O VS, Fishbone, I+O Laboratory Tests 08/11/20 05:30 Vital Signs Date Time Temp Pulse Resp B/P (MAP) Pulse Ox O2 Delivery O2 Flow Rate FiO2 08/11/20 09:00 101 99/62 08/11/20 08:00 98.6 18 96 Nasal Cannula 2.0 I&O- Last 24 Hours up to 6 AM 08/11/20 06:00 Intake Total 690 ml Output Total 1500 ml Balance -810 ml MAYITO SCHERER MD Aug 11, 2020 09:42
[2020-08-11 12:00] VITALS: BP 93/55
[2020-08-11 16:00] VITALS: BP 117/68
[2020-08-11 20:00] VITALS: BP 100/60
[2020-08-11] MEDS: SIMVASTATIN 20 MG TAB PO SCH (20:35)
[2020-08-12] VITALS: BP 111/68
[2020-08-12 04:00] VITALS: BP 107/60
[2020-08-12 06:22] LABS: HEMATOCRIT 35.5 % (36.0-47.0); HEMOGLOBIN 10.5 g/dl (12.0-15.5); MEAN CORPUSCULAR HEMOGLOBIN 27.1 pg (27.0-33.0); MEAN CORPUSCULAR HGB CONC 29.6 g/dl (32.0-36.5); MEAN CORPUSCULAR VOLUME 91.7 fl (80.0-96.0); RED BLOOD COUNT 3.87 10^6/uL (4.00-5.40); WHITE BLOOD COUNT 4.5 10^3/uL (4.0-10.0)
[2020-08-12 06:23] LABS: PLATELET COUNT, AUTOMATED 81 10^3/uL (150-450)
[2020-08-12 06:42] LABS: BLOOD UREA NITROGEN 25 MG/DL (7-18); CALCIUM LEVEL 8.3 MG/DL (8.8-10.2); CARBON DIOXIDE LEVEL 39 MEQ/L (21-32); CHLORIDE LEVEL 94 MEQ/L (98-107); CREATININE FOR GFR 0.54 MG/DL (0.55-1.30); GLOMERULAR FILTRATION RATE > 60.0 (>45); GLUCOSE, FASTING 158 MG/DL (70-100); POTASSIUM SERUM 3.5 MEQ/L (3.5-5.1); SODIUM LEVEL 139 MEQ/L (136-145)
[2020-08-12 08:00] VITALS: BP 111/58
[2020-08-12] MEDS: FUROSEMIDE 40MG/4ML VIAL (J1940) IV SCH (08:33)
[2020-08-12 08:34] VITALS: BP 111/58
[2020-08-12] MEDS: PANTOPRAZOLE 40MG TAB (PROTONIX) PO SCH (08:34)
[2020-08-12] MEDS: LEVEMIR (INSULIN DETEMIR) 1 UNITS/0.01ML SC SCH (08:34)
[2020-08-12] MEDS: HumaLOG INSULIN (NovoLOG) PER UNIT SC SCH ×2 (08:34→12:00)
[2020-08-12] MEDS: METOPROLOL SUCC *XL* 25MG TAB (TopROL *XL*) PO SCH (08:34)
[2020-08-12] MEDS: SODIUM CHLORIDE 0.9% INJ 10 ML SYR IV SCH (08:35)
[2020-08-12] MEDS: SPIRONOLACTONE 12.5MG PER 1/2 TABLET PO SCH (08:35)
[2020-08-12] MEDS: FERROUS SULFATE 325MG TAB PO SCH (08:35)
[2020-08-12] MEDS: METOPROLOL SUCC *XL* 12.5MG PER 1/2 TAB (TopROL *XL*) PO SCH (08:35)
[2020-08-12] MEDS: NYSTATIN 100,000 UNITS/GM TOPICAL PWD 15 GM TOP SCH (08:37)
[2020-08-12] MEDS: LEVALBUTEROL 1.25 MG/0.5 ML CONCENTRATE NEB NEB SCH ×2 (09:04→11:49)
[2020-08-12] MEDS ORDERED: ALDA25TA2 PO (09:40)
[2020-08-12] MEDS ORDERED: FURO40TA2 PO (09:41)
[2020-08-12 13:50] LABS: MAGNESIUM LEVEL 1.9 MG/DL (1.8-2.4)
--- NOTE | 2020-08-12 13:50 | DS.PDOC ---
Discharge Summary General Date of Admission Aug 05, 2020 at 12:00 Date of Discharge 08/12/20 Discharge Summary PROCEDURES PERFORMED DURING STAY: [None]. ADMITTING DIAGNOSES: 1. . DISCHARGE DIAGNOSES: 1. Sarcoidosis 2. HTN 3. IDDM 4. History of pulmonary embolism 5. GERD 6. Psoriasis 7. 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 PD L1 25% positive, ROSS1 negative, BRAF positive and ALK-negative. S/p radiation, keytruda 8. malignant pericardial effusion 9. portal hypertension 10. ? cirrhosis on imaging CT abd/pelvis 11. postobstructive pneumonia RML/RLL 12. malignant b/l pleural effusions s/p chest tube 13. Peritoneal carcinomatosis COMPLICATIONS/CHIEF COMPLAINT: Pleural Effusion, Lung Cancer. HISTORY OF PRESENT ILLNESS: The patient is a 64-year-old female with past medical history of metastatic adenocarcinoma of the lung to the stomach, hypertension, sarcoidosis, bilateral malignant pleural effusions, GERD, history of pulmonary embolism presented to [facility] emergency room chief complaint of increased shortness of breath over the past 3 days. The patient states her shortness of breath is with exertion and at rest, worsened with exertion. She states she's also had decreased appetite with increased nausea over the past 3 days. The patient is currently undergoing chemotherapy for her cancer with keytruda Rosanna she is on her second dose. She complains of diarrhea which started around the time she started her treatments and also complains of increased wheezing along with decreased appetite and decreased by mouth intake. She denies fevers, chills, lightheadedness, dizziness, coughing also complains of increased lethargy. She also has increased abdominal distention which she states has been worsening over month. She follows regularly with her primary care provider and hematology/oncology. The patient had a recent admission in June 2020 where they attempted to drain a left-sided pleural effusion; however, there was not enough there to drain. Due to worsening shortness of breath the patient decided to come to the emergency room for further evaluation. The ER, vital signs showed tachycardia with heart rates as high as 130s, sinus rhythm, other vital signs showed no hypoxia but she was on 2 L which is her home amount. VBG pH 7.22; however, ABG 7.35 on 2 L nasal cannula which his home amount. Abnormal labs include BNP slightly elevated at 330, CK-MB slightly elevated, troponin normal. BMP and CBC unremarkable from baseline. CTA chest: 1. No evidence for pulmonary embolus. 2. Postsurgical changes and volume loss to the right hemithorax. 3. Moderate left effusion, scattered patchy airspace disease, perihilar and lower lobe consolidations (right greater than left) and adenopathy again noted and similar to prior examination. 4. Stable upper abdominal findings including ascites and adenopathy again noted and essentially unchanged. CT abd/pelvis: 1. Marked ascites. Cannot exclude scattered adenopathy as well as the possibility of peritoneal soft tissue implants. Evaluation is limited due to the lack of contrast enhancement. 2. Cirrhosis and splenomegaly. 3. Stable simple right renal cysts. Patient states she has no prior history of "cirrhosis" diagnosis, Hepatitis, or alcohol use. Case discussed with Dr. Tran who stated Left pleural effusion appears small, agrees with paracentesis to help with incr SOB, holding off on drainage of left pleural effusion. Patient was admitted for increased shortness of breath likely multifactorial to bilateral pleural effusion, increased abd distension poss 2/2 to worsening cirrhosis vs. metastatic cancer?, HCAP. HOSPITAL COURSE: 64F with PMHx metastatic adenocarcinoma of the lung to the stomach, HTN, sarcoidosis, bilateral malignant pleural effusions, GERD, history of PE admitted for increased shortness of breath likely multifactorial to bilateral pleural effusion, increased abd distension poss 2/2 to worsening cirrhosis vs. metastatic cancer?, HCAP #SOB - likely multifactorial bilateral pleural effusion, increased abd distension poss 2/2 to worsening cirrhosis vs. metastatic cancer? -S/p paracentesis this hospital stay with improvement of breathing -Hx of malignant pericardial effusion, sarcoidosis -Currently on 2L - baseline #Diarrhea - resolved - GI panel pending (send out) #Abdominal ascites possibly 2/2 to peritoneal carcinomatosis vs. cirrhosis? -s/p paracentesis with 5.7 L removed, much more comfortable with breathing -No known cirrhosis hx per patient, denies hepatitis hx or alcohol abuse history -Hepatitis panel neg -Ascitic fluid neg for infection, although fungal cx still pending - not suspicious for SBP currently - no cytology sent #Hypokalemia, acute and likely 2/2 to diuresis -replete as needed #Abnormal CT chest -Findings on CT similar to last, procalcitonin low so low suspicion for pneumonia -Stopped abx -Monitor respiratory status #Bilateral malignant pleural effusions -Improved wheezing on exam but on 2 L NC -On last admission in 06/2020, left effusion was attempted to be drained but not enough fluid present -CTA chest above -Discussed with Dr. Tran (CT surgery), not needing additional drainage at this time of left pleural effusion. If condition worsens, re-image and discuss with him then. -C/w drainage of right PleurX catheter Q3Days - to follow up as outpatient for removal -C/w lasix BID, levalbuterol PRN and ATC #Metastatic adenocarcinoma right lung, extensive per heme/onc -PD L1 25% positive, ROSS1 negative, BRAF positive and ALK-negative. -S/p [address] Gann, s/p 2 doses of keytruda -Discussed with Dr. Regalado, hematology/onc. States prognosis is poor. Attempting s everal sessions more of chemo likely but if does not respond then prognosis worsens. -DNR/DNI #Hx of malignant pericardial effusion -Improved per new echo above -F/u o/p #HTN -C/w home med #anxiety/depression - takes Viibryd 40mg daily at home #DM type II -Better controlled with stopping steroids and adding levemir -Consistent carb diet -C/w AM levemir, ISS, FS AC/HS #Cirrhotic changes of liver -No documented cirrhosis hx, no alcohol abuse or hepatitis history -Likely contributing to ascites that needed to be drained -Albumin >2.5 -Hepatitis neg -Ascitic fluid not infected -F/u with PCP DISCHARGE MEDICATIONS: Please see below. ALLERGIES: Please see below. PHYSICAL EXAMINATION ON DISCHARGE: VS: Please see below General: sitting comfortably in chair, in good spirits HEENT: NC/AT, EOMI Heart: +S1S2, RRR RESPIRATORY: diminished breath sounds Abd: soft, NT, +BS LABORATORY DATA: Please see below. ACTIVITY: [As tolerated]. DISPOSITION: Discharge home with services. Poor prognosis DISCHARGE INSTRUCTIONS: 1. Follow up with PCP in 3-5 days. 2. Follow up with CT surgery Dr. Tran in 3-5 days or as scheduled. 3. Follow up with oncology Dr. Regalado in 3-5 days or as scheduled. DISCHARGE CONDITION: [Stable]. TIME SPENT ON DISCHARGE: 35minutes. Vital Signs/I&Os Vital Signs Date Time Temp Pulse Resp B/P (MAP) Pulse Ox O2 Delivery O2 Flow Rate FiO2 08/12/20 08:34 124 111/58 08/12/20 08:14 2.0 08/12/20 08:00 98.2 18 94 Nasal Cannula I&O- Last 24 Hours up to 6 AM 08/12/20 06:00 Intake Total 1670 ml Output Total 1200 ml Balance 470 ml Laboratory Data Labs 24H Laboratory Tests 2 08/11/20 16:50: Bedside Glucose (Misc Panel) 129H 08/11/20 20:34: Bedside Glucose (Misc Panel) 148H 08/12/20 05:45: Nucleated Red Blood Cells % (auto) 0.0, Immature Platelet Fraction 5.0, Anion G ap 6L, Glomerular Filtration Rate > 60.0, Calcium Level 8.3L 08/12/20 11:53: Bedside Glucose (Misc Panel) 86 CBC/BMP Laboratory Tests 08/12/20 05:45 FSBS Laboratory Tests Test 08/11/20 16:50 08/11/20 20:34 08/12/20 11:53 Range/Units Bedside Glucose (Misc Panel) 129 148 86 80-115 MG/DL Microbiology Microbiology 08/08/20 Campylobacter (PCR), Received Pending 08/08/20 Clostridium difficile Toxin A&B PCR, Received Pending 08/08/20 Plesiomonas shigelloides (PCR), Received Pending 08/08/20 Salmonella (PCR)(SAL), Received Pending 08/08/20 Vibrio Species (PCR), Received Pending 08/08/20 Vibrio Cholerae (PCR), Received Pending 08/08/20 Yersinia enterocolitica (PCR), Received Pending 08/08/20 Enteroaggregative E. coli (PCR), Received Pending 08/08/20 Enteropathogenic E. coli (PCR), Received Pending 08/08/20 Enterotoxigenic E. coli (PCR), Received Pending 08/08/20 E. coli Shiga-like Toxin (PCR), Received Pending 08/08/20 Escherichia coli 0157 (PCR), Received Pending 08/08/20 Enteroinvasive E. coli/Shigella PCR, Received Pending 08/08/20 Cryptosporidium (PCR), Received Pending 08/08/20 Cyclospora cayetanensis (PCR), Received Pending 08/08/20 Entamoeba histolytica (PCR), Received Pending 08/08/20 Giardia lamblia (PCR), Received Pending 08/08/20 Adenovirus Type F 40/41 (PCR), Received Pending 08/08/20 Astrovirus (PCR), Received Pending 08/08/20 Norovirus GI/GII (PCR), Received Pending 08/08/20 Rotavirus A (PCR), Received Pending 08/08/20 Sapovirus I/II/IV/V (PCR), Received Pending 08/05/20 Acid Fast Stain, Received Pending 08/05/20 Mycobacterial Culture, Received Pending 08/05/20 Fungal Smear, Received Pending 08/05/20 Fungal Culture, Received Pending 08/05/20 Gram Stain - Final, Complete 08/05/20 Body Fluid Culture - Final, Complete 08/05/20 Respiratory Virus Panel (PCR) (SAL) - Final, Complete 08/05/20 Blood Culture - Final, Complete NO GROWTH AFTER 5 DAYS 08/05/20 Blood Culture - Final, Complete NO GROWTH AFTER 5 DAYS Discharge Medications Scheduled Empagliflozin (Jardiance) 10 Mg Tablet, 10 MG PO DAILY, (Reported) Ferrous Sulfate (Ferosul) 325 Mg Tablet, 325 MG PO DAILY, (Reported) DUE TO INCREASE TO 2 TABS ANYTIME Furosemide (Furosemide) 40 Mg Tablet, 1 TAB PO DAILY Levalbuterol HCl (Levalbuterol HCl) 0.63 Mg/3 Ml Vial.neb, 0.63 MG INH QID, (Reported) Lovastatin (Lovastatin) 20 Mg Tablet, 20 MG PO QPM, (Reported) Metoprolol Succinate (Metoprolol Succinate) 50 Mg Tab.er.24h, 25 MG PO DAILY, (Reported) Pantoprazole Sodium (Pantoprazole Sodium) 40 Mg Tablet.dr, 40 MG PO DAILY, (Reported) Semaglutide (Ozempic) 0.25 Mg/0.2 Ml Pen.injctr, 0.5 MG SC QWEEK, (Reported) MONDAY Spironolactone (Aldactone) 25 Mg Tablet, 12.5 MG PO DAILY Vilazodone HCl (Viibryd) 40 Mg Tablet, 40 MG PO DAILY, (Reported) Scheduled PRN Calcipotriene (Calcipotriene) 0.005% Oint...g., 1 DOSE TOP BID PRN for PSORIASIS, (Reported) Allergies Coded Allergies: citalopram (Verified Adverse Reaction, Severe, jittery, 05/12/20) metformin (Verified Adverse Reaction, Severe, nausea, vomiting, 05/12/20) erythromycin base (Verified Adverse Reaction, Intermediate, vomiting, 04/20/20) azithromycin (Verified Adverse Reaction, Unknown, vomiting, 05/12/20) mirtazapine (Verified Adverse Reaction, Unknown, insomnia, 05/12/20) MAYITO SCHERER MD Aug 12, 2020 13:50
== END 2020-08-12 16:33 | disposition home health service (06) | DRG 197 ==
LOC: M ED 06:52 → M ED INP 12:00 → M PCU 15:42
PROVIDERS: ADMIT Internal Medicine; ATTEND Internal Medicine
PROC: 0W9F3ZZ Drainage of Abdominal Wall, Percutaneous Approach (ICD-10-PCS; principal; 2020-08-05 14:00)
DX: D86.9 Sarcoidosis, unspecified (principal); C34.90 Malignant neoplasm of unspecified part of unspecified bronchus or lung; C78.89 Secondary malignant neoplasm of other digestive organs; J91.0 Malignant pleural effusion; R18.8 Other ascites; K76.6 Portal hypertension; I10 Essential (primary) hypertension; E11.9 Type 2 diabetes mellitus without complications; K21.9 Gastro-esophageal reflux disease without esophagitis; L40.8 Other psoriasis; R19.7 Diarrhea, unspecified; E87.6 Hypokalemia; Z86.711 Personal history of pulmonary embolism; K74.60 Unspecified cirrhosis of liver; Z79.899 Other long term (current) drug therapy; Z88.8 Allergy status to other drugs, medicaments and biological substances; Z66 Do not resuscitate

== ENCOUNTER → 2020-08-17 | Outpatient (CLI) | payer OTHER ==
[~2020-08-17] MED LIST changes: +ALDA25TA2 PO; +CALC0.004 TOP; +FERR325T20 PO; +FURO40TA2 PO; +LEVA0.6322 INH
--- NOTE | 2020-08-17 12:05 | REP ---
INDICATION: ASCITES, MAL PLEURAL EFFUSION LUNG CA COMPARISON: Comparison CT study 05 August 2020.. TECHNIQUE: Helical scanning is acquired in 4 mm axial images were reformatted. Coronal and sagittal MPR images were generated and reviewed. FINDINGS: Digital preliminary weatherization operations manager radiograph is unremarkable. The bowel gas pattern is normal. There is a right-sided PleurX catheter. On axial CT images, there are small bilateral pleural effusions. Left is little larger than right. There is mild diffuse abdominal ascites slightly less prominent than on the 05 August 2020 study. Moderate splenomegaly is observed, unchanged from the prior study. The spleen measures up to 15 cm in craniocaudal span. There is opaque material layering in the dependent portion the gallbladder consistent with gallstones or mineralized sludge. A micronodular liver contour is seen consistent with cirrhosis. Venous collaterals are noted in the upper abdomen as before. There are 2 small cortical cysts in the upper pole of the right kidney. The kidneys are otherwise unremarkable. There is left colonic diverticulosis without CT evidence of diverticulitis. No evidence of free air is seen. There is dermal thickening and subcutaneous edema in the panniculus consistent with cellulitis. Vascular calcification is noted. There is a bilateral L5 spondylolysis and a mild 2-3 mm grade 1 L5-S1 spondylolisthesis unchanged. No bony destructive lesion is appreciated. IMPRESSION: Evidence of cirrhosis and portal hypertension. Splenomegaly and mild to moderate ascites, decreased in overall quantity from 05 August 2020 prior study. Left colonic diverticulosis and stable right renal cysts are also noted. Evidence of panniculitis. Right-sided PleurX catheter. <Electronically signed by Shorty Okeefe > 08/17/20 1201
--- NOTE | 2020-08-17 12:10 | REP ---
INDICATION: ASCITES, MAL PLEURAL EFFUSION LUNG CA. COMPARISON: Comparison chest CT study 05 August 2020.. TECHNIQUE: Helical scanning is acquired. 3 mm axial images are generated. Coronal and sagittal MPR and coronal MIP images are generated. FINDINGS: A right-sided PleurX catheter is noted in place at the right posterior lung gutter. There is very little right pleural fluid. There is right pleural thickening however posteriorly. There is a small amount of left pleural effusion which is improved compared to the 05 August 2020 study. There is upper abdominal ascites also somewhat improved. There are calcified and noncalcified rory residuals in the mediastinum subcarinal and hilar regions unchanged from the recent prior CT study. There is a small quantity of pericardial fluid unchanged. In the lung malone, there is is a consolidation in the right lower lobe with air bronchograms which is similar to the prior study. There is right hilar and perihilar spiculated mass effect with some parenchymal opacity peripheral to it in the right mid lung field. This is also quite similar to the recent prior study. There is a small nodular density with overlying pleural thickening in the left upper lobe. This nodular density measures 5 mm in size and is unchanged from the recent prior study. There is discoid atelectasis in the perihilar region in the lingular segment of the left upper lobe. IMPRESSION: Left pleural effusion is improved. PleurX catheter remains in place in the right posterior pleural daughter. Adenopathy and pulmonary parenchymal opacities bilaterally essentially unchanged from the 05 August 2020 study. Right-sided [id number] catheter. Upper abdominal ascites and evidence of cirrhosis and portal hypertension. <Electronically signed by Shorty Okeefe > 08/17/20 0005
== END ==
LOC: M RAD 10:57
PROVIDERS: ATTEND Thoracic Surgery (Cardiothoracic Vascular Surgery)
DX: R16.1 Splenomegaly, not elsewhere classified (principal); N28.1 Cyst of kidney, acquired; R18.8 Other ascites; K57.32 Diverticulitis of large intestine without perforation or abscess without bleeding; C34.11 Malignant neoplasm of upper lobe, right bronchus or lung; J91.0 Malignant pleural effusion

== ENCOUNTER → 2020-08-17 | Outpatient (CLI) | payer OTHER ==
--- NOTE | 2020-08-17 13:51 | REPPI ---
INDICATION: MALIGNANT NEOPLASM COMPARISON: 08/05/2020 TECHNIQUE: PA and lateral. FINDINGS: [id number] with tip in the SVC. Moderate to significant bilateral lower lobe opacities including effusions and consolidation/airspace disease essentially unchanged. No pneumothorax. Mediastinum and cardiac silhouette are incompletely evaluated due to overlying opacities but similar to prior examination. IMPRESSION: No significant change from prior examination. Continued moderate to significant bilateral lower lobe opacities and effusions. <Electronically signed by Tomi Tejeda > 08/17/20 [id number]
== END ==
LOC: M PLAIMG 08:34
PROVIDERS: ATTEND Thoracic Surgery (Cardiothoracic Vascular Surgery)
DX: C34.11 Malignant neoplasm of upper lobe, right bronchus or lung (principal); C34.12 Malignant neoplasm of upper lobe, left bronchus or lung; J91.0 Malignant pleural effusion

== ENCOUNTER → 2020-08-29 | Outpatient (CLI) | payer OTHER ==
[~2020-08-29] MED LIST changes: +CLOB60SO; +CVS1CAP2 PO; +FLUC150T; +POTA1TAB14 PO
== END ==
LOC: M LABSMTC 10:23
PROVIDERS: ATTEND Anesthesiology
DX: Z01.812 Encounter for preprocedural laboratory examination (principal); Z20.822 Contact with and (suspected) exposure to COVID-19

== ENCOUNTER → 2020-08-31 | Outpatient (CLI) | payer OTHER ==
[~2020-08-31] MED LIST changes: +CULT10CA4 PO; +ELIQ2.5T PO; +ELIQ5TAB PO; +FERR324T2 PO; +LEVA1.2519 NEB; +LIDOCAINE 1% MDV 20ML VIAL As Ordered ONE; +LOPE2CAP PO; +METO25TA4 PO; +MIDO5TA PO; +POTA20TA6 PO; +PROC10TA4 PO; +SODIUM BICARBONATE 8.4% INJ 50MEQ 50 ML VIAL As Ordered ONE; +SPIR-10 PO; +TOPR25TA PO; +TORS100T PO
[2020-08-31 11:40] VITALS: BP 101/56
--- NOTE | 2020-08-31 16:17 | REP ---
INDICATION: ASCITES The patient has a history of ascites COMPARISON: None. TECHNIQUE: The procedure was performed by TIM Rojas, under the direct supervision of Dr. Okeefe The risks and benefits of the procedure were explained to the patient and an informed consent was obtained both verbally and written. Directly prior to the start of the procedure a formal time-out was completed in the procedure room. The largest pocket of fluid was localized in the left flank using ultrasound guidance. The skin was prepped and draped in a sterile fashion. Eleven ML of buffered lidocaine was used as a local anesthetic. An 8-Citizen Of [place] multi side-hole catheter was inserted using trocar technique. FINDINGS: 4400 mL of yellow ascites was removed and discarded. The patient tolerated the procedure well and there were no immediate complications. After the appropriate amount of monitored convalescence, the patient was discharged from the department. IMPRESSION: Ultrasound-guided paracentesis with removal of 4400 mL of yellow ascites. <Electronically signed by Carleen Baum > 08/31/20 1406 <Electronically signed by Shorty Okeefe > 08/31/20 161
== END ==
LOC: M IRPRO 09:46
PROVIDERS: ATTEND Specialist
DX: R18.8 Other ascites (principal)

== ENCOUNTER 2020-09-03 12:38 | Day surgery (SDC) | payer OTHER ==
[~2020-09-03] VITALS: Ht 152.4 cm; Wt 76.7 kg
[~2020-09-03 12:38] MED LIST changes: -CULT10CA4 PO; -ELIQ2.5T PO; -ELIQ5TAB PO; -FERR324T2 PO; -LEVA1.2519 NEB; -LIDOCAINE 1% MDV 20ML VIAL As Ordered ONE; -LOPE2CAP PO; -METO25TA4 PO; -MIDO5TA PO; +MUPIROCIN 2% OINT 22 GM TUBE TOP ONE; -POTA20TA6 PO; -PROC10TA4 PO; -SODIUM BICARBONATE 8.4% INJ 50MEQ 50 ML VIAL As Ordered ONE; -SPIR-10 PO; -TOPR25TA PO; -TORS100T PO; +ceFAZolin SOD 2 GM in IV 1 EA IV ONE
--- OUTSIDE RECORDS SUMMARY | 2020-09-03 12:42 | CCD | Continuity of Care Document ---
Author Mercedes Velarde M.D. Organization Unknown Address [address] [facility] [address] [place] [address] Phone [phone] Care Team Providers Care Sample Maker Hand Name Role Phone Matt Huynh M.D. AUTM [phone] Ghassan Rodriguez M.D. AUTM [phone] Leona Hernández M.D. AUTM [phone] Problems Active Problems Provider Date Type 1 diabetes mellitus Alfonso Tran M.D. Onset: 021 Essential hypertension Alfonso Tran M.D. Onset: 1 Social History Type Date Description Comments Sex Unknown Tobacco Use Start: Unknown End: Patient is a former smoker Smoking Status Reviewed: 08/17/20 Patient is a former smoker Allergies, Adverse Reactions, Alerts Description No Known Drug Allergies Medications Active Medications SIG Qnty Indications Ordering Provide r Date Levalbuterol HCL 0.63mg/3ML Nebuli zer 1 vial nebulized three times a day as needed 270ml R91.8 Jannet Ovalle M.D. 04/10/2020 Spironolactone 25mg Tablets Take 1 2 (One Half) Tablet By Mouth Once Daily Unknown Furosemide 40mg Tablets Take 1 Tablet By Mouth Once Daily Unknown Xopenex HFA 45mcg/Act Aerosol 2 puffs qid/prn Unknown Keytruda 100mg/4ML Solution 1injection every 3 weeks Unknown Oxycodone-Acetaminophen 5-325mg Ta blets 1 tab by mouth four times a day as needed Unknown Ozempic (0.25 Or 0.5 MG/Dose) 2mg/1.5ML Solution Pen-Inject Unknown Enalapril Maleate 5mg Tablets 1 tab by mouth everyday Unknown Viibryd 40mg Tablets 1 tab by mouth every day Unknown Metoprolol Succinate ER 50mg Tablets ER 24HR 1/2 tab by mouth Unknown Jardiance 10mg Tablets 1 tab by mouth everyday Unknown Pantoprazole Sodium 40mg Tablets D R 1 tab by mouth everyday Unknown Lovastatin 40mg Tablets 1/2 by mouth every day Unknown History Medications Ventolin HFA 108(90Base) mcg/Act A erosol 2 puffs every 4 hours as needed 18gm Dakota Lara 05/28/2020 - 07/01/2020 Prednisone 10mg Tablets 30mg qd x 3 days then 20mg qd x3 days then 10mg qd x 3 days and stop 30tabs Jannet Terrell M.D. 04/28/2020 - 07/01/2020 Prednisone 20mg Tablets 2 by mouth every [...] Available Vital Signs Date Vital Result Comment 08/17/2020 9:03am BP Systolic 106 mmHg BP Diastolic 60 mmHg Heart Rate 112 /min O2 % BldC Oximetry 98 % o2 sat on 2L Height 60 inches 5'0" Weight 176.00 lb BMI (Body Mass Index) 34.4 kg/m2 [place] Body Weight 100 lb Weight 79.834 kg BSA (Body Surface Area) 1.77 m2 06/29/2020 9:19am BP Systolic 130 mmHg BP Diastolic 68 mmHg Heart Rate 118 /min O2 % BldC Oximetry 99 % o2 sat on 2L Height 60 inches 5'0" Weight 187.00 lb BMI (Body Mass Index) 36.5 kg/m2 [place] Body Weight 100 lb Weight 84.823 kg BSA (Body Surface Area) 1.81 m2 Results Test Acquired Date Facility Test Result H/L Range Note Laboratory test finding 06/30/2020 [facility] Main Lab [address] [place] [address] [phone] Bedside Glucose 115 mg/dL Normal 80-115 Arterial Blood Gas 05/12/2020 [facility] nter Main Lab [address] [place] [address] [phone] ABG pH (Arterial) 7.419 units Normal 7.350-7.450 [...] Site RT BRACHIAL Normal Prothrombin Time/Inr 04/22/2020 [facility] enter Main Lab [address] [place] [address] [phone] Prothrombin Time 13.0 seconds Normal 12.5-14.3 Inr 0.96 Normal 1 Laboratory test finding 04/22/2020 [facility] Main Lab [address] [place] [address] [phone] Angiotensin 1 Converting Enzym 38 U/L Normal 1 4-82 2 CBC With Differential 04/22/2020 [facility] Main Lab [address] [place] [address] [phone] White Blood Count 11.7 10 High 4.0-10.0 [...] 36.0-66.0 Lymph % 11.2 % Low 24.0-44.0 Crawford % 8.9 % High 0.0-5.0 Eos % 1.6 % Normal 0.0-3.0 Baso % 0.9 % Normal 0.0-1.0 Immature Granulocyte % 0.7 % Normal 0-3.0 Nucleated Red Blood Cell % 0.0 % Normal 0-0 Neutrophils # 9.0 10 High 1.5-8.5 Lymph # 1.3 10 Low 1.5-5.0 Crawford # 1.0 10 High 0.0-0.8 Eos # 0.2 10 Normal 0.0-0.5 Baso # 0.1 10 Normal 0.0-0.2 Comprehensive Metabolic Profil 04/22/2020 [facility] Main Lab [address] [place] [address] [phone] Glucose, Fasting 146 mg/dL High 70-100 Blood [...] 0.9 Low 1.2-2.2 Laboratory test finding 04/22/2020 [facility] Main Lab [address] [place] [address] [phone] Bedside Glucose 168 mg/dL High 80-115 Acid Fast Smear & Culture(Afb) Sendout 04/22/2020 [facility] Main Lab [address] [place] [address] [phone] Afb Smear Due to limited s <SEE NOTE> 4 Afb Culture Testing performe <SEE NOTE> 5 Culture Fungus Misc 04/22/2020 [facility] nter Main Lab [address] [place] [address] [phone] Fungal Smear Testing performe <SEE NOTE> 6 Fungal Culture Other Source Testing performe <SEE NOTE> 7 Acid Fast Smear & Culture(Afb) Sendout 04/22/2020 [facility] Main Lab [address] [place] [address] [phone] Afb Smear Due to limited s <SEE NOTE> 8 Afb Culture Testing performe <SEE NOTE> 9 Cell Count/Diff CSF (Auto Count) 04/22/2020 [facility] Main Lab [address] [place] [address] [phone] Neutrophils, Bal 5 % Normal Lymphocytes, Bal 25 % Normal Monocytes/Macrophages, Bal 70 % Normal Cell Count Broncho Lavage 04/22/2020 [facility] Main Lab [address] [place] [address] [phone] Source LEFT UPPER LOBE Normal 10 Color PINK High Colorless Appearance CLOUDY High Clear Bal WBC 53 CELLS/uL High 0-10 Laboratory test finding 04/22/2020 [facility] Main Lab [address] [place] [address] [phone] Afb Smear & Culture Due to limited s <SEE NOTE> 11 Bal Culture And Gram Stain 04/22/2020 [facility] Main Lab [address] [place] [address] [phone] Gram Stain (SEE NOTE) Normal 12 Bal Culture FULL REPORT IN L <SEE NOTE> Normal 13 Laboratory test finding 04/22/2020 [facility] Main Lab [address] [place] [address] [phone] Non Litigation Assistant/Cytology Req For Servi (SEE NOTE) 14, 15 Laboratory test finding 04/22/2020 [facility] Main Lab [address] [place], [place] [address] [phone] Non Litigation Assistant/Cytology Req For Servi (SEE NOTE) 16 Laboratory test finding 04/22/2020 [facility] Lab [address] [place], [place] [phone] Pathology Request For Service (SEE NOTE) 17 Laboratory test finding 04/22/2020 [facility] Lab [address] [place] [address] [phone] Pathology Request For Service (SEE NOTE) 18 Laboratory test finding 04/22/2020 [facility] Lab [address] [place] [address] [phone] Non Litigation Assistant/Cytology Req For Servi (SEE NOTE) 19 Laboratory test finding 04/22/2020 [facility] Lab [address] [place] [address] [phone] Non Litigation Assistant/Cytology Req For Servi (SEE NOTE) 20 1 THERAPUTIC HUMAN INR VALUES INDICATIONS NORMAL RANGES PROPHYLAXIS/TREATMENT OF: VENOUS THROMBOSIS 2.0-3.0 PULMONARY EMBOLISM 2.0-3.0 PREVENTION OF SYSTEMIC EMBOLISM FROM: TISSUE HEART VALVES 2.0-3.0 ACUTE MYOCARDIAL INFARCTION 2.0-3.0 VALVULAR HEART DISEASE 2.0-3.0 ATRIAL FIBRILLATION 2.0-3.0 MECHANICAL VALVES(HIGH RISK) 2.5-3.5 RECURRENT MYOCARDIAL INFARCTION 2.5-3.5 2 Performed at: RN - [facility] [address] [id number] Roll Press Operator: Lily Weaver MD, Phone: [phone] 3 Units are mL/min/1.73 m2 Chronic Kidney Disease Staging per NKF: Stage I & II GFR >=60 Normal to Mildly Decreased Stage III GFR 30-59 Moderately Decreased Stage IV GFR 15-29 Severely Decreased Stage V GFR <15 Very Little GFR Left ESRD GFR <15 on BANKING MANAGER 4 Due to limited sensitivity, smear results should be used as an adjunct in evaluating patient tuberculosis status. Cultural examination is highly recommended for clinical diagnosis. AFB smear Kinyoun NEGATIVE (NO AFB Seen ) 5 Testing performed at [facility] . Report copy to follow on a separate form. 01/19/21 REF LAB#:[phone] FULL REPORT IN LAB NOTES ([facility]CW and [facility]). No Acid-Fast Bacilli Isolated after 6 Weeks. 6 Testing performed at [facility] . Report copy to follow on a separate form. 06/06/20 REF LAB#:[phone] SIMA/Calcofluor preparatio No fungus observed. 7 Testing performed at [facility] . Report copy to follow on a separate form. 06/06/20 REF LAB#:[phone] FUNGUS CULTURE [facility] No Yeast or Mold Isolated after 4 weeks. 8 Due to limited sensitivity, smear results should be used as an adjunct in evaluating patient tuberculosis status. Cultural examination is highly recommended for clinical diagnosis. AFB smear Kinyoun NEGATIVE (NO AFB Seen ) 9 Testing performed at [facility] . Report copy to follow on a separate form. 06/06/20 REF LAB#:[phone] FULL REPORT IN LAB NOTES (eCW and [facility]). No Acid-Fast Bacilli Isolated after 6 Weeks. 10 BRON ALVEOLAR LAVAGE 11 Due to limited sensitivity, smear results should be used as an adjunct in evaluating patient tuberculosis status. Cultural examination is highly recommended for clinical diagnosis. AFB smear Kinyoun NEGATIVE (NO AFB Seen ) 12 MANY RBCS FEW WBCS NO ORGANISMS SEEN 13 FULL REPORT IN LAB NOTES (eC W and [facility]). NO GROWTH AEROBICALLY 14 will discuss at follow-up 15 SPECIMEN: Broncho alveolar lavage (right upper lobe) 2ml [place] SPECIMEN ADEQUACY: Satisfactory for evaluation CATEGORIZATION: Positive for Malignancy DESCRIPTIONS: Cellular specimen consiting of atypical cells exhibiting high n/c ratios and atypical nuclei with prominent macronucleoli. The background consists of bronchial cells, macrophages, scattered lyphocytes, and blood elements. COMMENTS: Please correlate with surgical case [id number]. 04/23/2020 - [address](ASCP) 04/23/2020 1036 (Prelim) Signed JYOTSNA SIDDIQUI MD 04/23/2020 1671 16 SPECIMEN: Broncho alveolar lavage (left upper lobe) 5ml [place] SPECIMEN ADEQUACY: Satisfactory for evaluation CATEGORIZATION: Positive for Malignancy DESCRIPTIONS: Scattered small groups of atypical cells exhibiting increased n/c ratios and muclei with prominent macronucleoli. The background consists of bronchial cells, scattered pulmonary macrophages and blood elements. COMMENTS: Please correlate with surgical case [id number]. 04/23/2020 - [address](ASCP) 04/23/2020 1116 (Prelim) Signed JYOTSNA SIDDIQUI MD 04/23/2020 1556 17 Addendum 3 Entered: 020-1145 PD-L1 KEYTRUDA shows tumor proportion score of 25%/Expression. Positive for BRAF Negative for ALK Negative for ROS1 Negative for KRAS Negative for EGFR See complete reports from [facility] 4/TR 05/18/20201144 Addendum Signed____ Julisa Cerda MD 05/18/20201144 Addendum 2 Entered: 05/15/2020-0659 PD-L1 KEYTRUDA shows tumor proportion score of 25%/Expression. Positive for BRAF Negative for ALK Negative for ROS1 Negative for KRAS See complete reports from [facility] 4/TR 05/15/2020658 Addendum Signed__Julisa Rojas MD 05/15/2020658 Addendum 1 Entered: 05/14/2020-0553 PD-L1 KEYTRUDA shows tumor proportion score of 25%/Expression. Positive for BRAF Negative for ROS1 Negative for KRAS ALK is pending, addendum will follow. See complete reports from [facility]. 05/14/2020552 Addendum Signed_Julisa Nelson MD 05/14/2020552 FINAL DIAGNOSIS A - Lung, [...] 04/22/20201525 Signed JYOTSNA SIDDIQUI MD 04/24/2020 111 18 FINAL DIAGNOSIS A - Lung, right upper [...] 1525 Signed JYOTSNA SIDDIQUI MD 04/24/2020 1115 19 SPECIMEN: FNA Lef t hilar lymph node Cytolyt and prepared slides received SPECIMEN ADEQUACY: Satisfactory for evaluation CATEGORIZATION: Positive for Malignancy DESCRIPTIONS: Scattered clusters small groups and single atypical cells noted exhbiting atypical nuclei with prominent single and multiple nucleoli. The background consists of bronchial cells, pulmonary macrophages, scattere lymphocytes and red blood cells. COMMENTS: Please correlate with surgical case [id number]. 04/23/2020 - 1554 Signed SUKHI AWAD(ASCP) 04/23/2020 1005 (Prelim) Signed JYOTSNA SIDDIQUI MD 04/23/2020 1556 20 SPECIMEN: Bronchi al brushing (right upper lobe) Prepared slides and brush in vial received SPECIMEN ADEQUACY: Satisfactory for evaluation CATEGORIZATION: Atypical cytology DESCRIPTIONS: Scant atypical cells exhbiting variation in size and nuclei with prominent nucleoli in a background of brochial cells and blood elements. Please correlate with surgical case [id number]. COMMENTS: 04/23/20201554 Signed SUKHI AWDA(ASCP) 04/23/2020 1149 (Prelim) Signed JYOTSNA SIDDIQUI MD 04/23/2020 1555 Procedures Date Code Description Status 06/06/2020 24041 Insertion Of Indwelling Tunneled Pleural Catheter W/Cuff Completed 04/22/2020 98894 With Endobronchial Ultrasound Gu ided Completed 04/22/2020 50384 Bronchoscopy, W/Lopez sbronchial Needle Aspiration Biopsy Addl Lobe Completed 04/22/2020 68059 Bronchoscopy W/Biopsy Completed 04/22/2020 54138 Bronchoscopy W/Bronchial Alveola r Lavage Completed 04/22/2020 45719 Bronchoscopy W/Brushing Or Prote cted Brushings Completed 04/10/2020 70881 Airway Inhalation Treatment Comp leted Medical Devices Description No Information Available Encounters Type Date Location Provider Dx Diagnosis Office Visit 06/29/2020 9:15a [facility] Yesica Tran M.D. 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 C34.91 Malignant neoplasm of unsp p art of right bronchus or lung J91.0 Malignant pleural effusion I10 Essential (primary) hyperten zuhair E11.9 Type 2 diabetes mellitus wit hout complications Office Visit 06/07/2020 1:23a [facility] Yesica Tran M.D. C34.91 Malignant neoplasm of unsp p art of right bronchus or lung J91.0 Malignant pleural effusion I10 Essential (primary) hyperten zuhair E11.9 Type 2 diabetes mellitus wit hout complications Office Visit 06/06/2020 1:23a [facility] Yesica Tarn M.D. C34.91 Malignant neoplasm of unsp p art of right bronchus or lung J91.0 Malignant pleural effusion I10 Essential (primary) hyperten zuhair E11.9 Type 2 diabetes mellitus wit hout complications Office Visit 05/28/2020 10:45a [facility] Yesica Tran M.D. C34.11 Malignant neoplasm [...] pulmonar y embolism Office Visit 04/28/2020 2:30p [facility] Jannet Shearer M.D. 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 08/17/2020 C34.12 Malignant neoplasm of upper lobe , left bronchus or lung Alfonso Tran M.D. 08/17/2020 C77.1 Secondary and unspec ified malignant neoplasm of intrathoracic lymph nodes Alfonso Tran M.D. 08/17/2020 I31.9 Disease of pericardium, unspecif ied Alfonso Tran M.D. 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 08/17/2020 E11.9 Type 2 diabetes mellitus without complications Alfonso Tran M.D. 08/17/2020 I10 Essential (primary) hypertension Alfonso Tran M.D. 08/17/2020 Z86.711 Personal history of pulmonary em bolism Alfonso Tran M.D. 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 08/17/2020 J91.0 Malignant pleural effusion Sudeep Tran M.D. 08/17/2020 R18.8 Other ascites Alfonso Tran M.D. 06/29/2020 C34.11 Malignant neoplasm of upper lobe [...] Sarcoidosis of lymph nodes Sudeep Tran M.D. 06/09/2020 C34.91 Malignant neoplasm o f unspecified part of right bronchus or lung Alfonso Tran M.D. 06/09/2020 J91.0 Malignant pleural effusion Sudeep Tran M.D. 06/09/2020 I10 Essential (primary) hypertension Alfonso Tran M.D. 06/09/2020 E11.9 Type 2 diabetes mellitus without complications Alfonso Tran M.D. 06/07/2020 C34.91 Malignant neoplasm o f unspecified part of right bronchus or lung Alfonso Tran M.D. 06/07/2020 J91.0 Malignant pleural effusion Sudeep Tran M.D. 06/07/2020 I10 Essential (primary) hypertension Alfonso Tran M.D. 06/07/2020 E11.9 Type 2 diabetes mellitus without complications Alfonso Tran M.D. 06/06/2020 C34.91 Malignant neoplasm o f unspecified part of right bronchus or lung Alfonso Tran M.D. 06/06/2020 J91.0 Malignant pleural effusion Sudeep Tran M.D. 06/06/2020 I10 Essential (primary) hypertension Alfonso Tran M.D. 06/06/2020 E11.9 Type 2 diabetes mellitus without complications Alfonso Tran M.D. 05/28/2020 C34.11 Malignant neoplasm of [...] Tran M.D. 05/28/2020 I10 Essential (primary) hypertension lAfonso Tran M.D. 05/28/2020 Z86.711 Personal history of [...] nodes Jannet Ovalle M.D. Plan of Treatment No Information Available Functional Status Description No Information Available Mental Status Description No Information Available Referrals Refer to Dr Reason for Referral Status Appt Date Radiology/Procedure [facility] [place] [id number] Closed Radiology/Procedure [facility] [place] [id number] and [id number] Closed Leona Hernández M.D. newly diagnosed metastatic adenocarcinoma Closed 05/14/2020 [facility] Medical Oncology & Hematology [address] [place] [address] [phone] Radiology/[place] [address],2 3,24,25,26,28.29,32,33,52,53,54 and S2900 Closed
--- OUTSIDE RECORDS SUMMARY | 2020-09-03 12:44 | CCD ---
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 Role Phone Gibson, Marina PA Unavailable [...] Unavailable Unavailable Gibson, Marina PA Unavailable Unavailable Gwendolyn Huynh MD Unavailable Unavailable Gwendolyn Huynh MD Unavailable Unavailable Gwendolyn Huynh MD Unavailable Unavailable Gwendolyn Huynh MD Unavailable Unavailable Gwendolyn Huynh MD Unavailable Unavailable Gwendolyn Huynh MD Unavailable Unavailable Gwendolyn Huynh MD Unavailable Unavailable Gwendolyn Huynh MD Unavailable Unavailable Gwendolyn Huynh MD Unavailable Unavailable Gwendolyn Huynh MD Unavailable Unavailable Gwendolyn Huynh MD Unavailable Unavailable Gwendolyn Huynh MD Unavailable Unavailable Gwendolyn Huynh MD Unavailable Unavailable Gwendolyn Huynh MD Unavailable Unavailable Gwendolyn Huynh MD Unavailable Unavailable Gwendolyn Huynh MD Unavailable Unavailable Gwendolyn Huynh MD Unavailable Unavailable Gwendolyn Huynh MD Unavailable Unavailable Gwendolyn Huynh MD Unavailable Unavailable LyndaGwendolyn santiago MD Unavailable Unavailable LyndaGwendolyn santiago MD Unavailable Unavailable LyndaGwendolyn santiago MD Unavailable Unavailable LyndaGwendolyn santiago MD Unavailable Unavailable LyndaGwendolyn santiago MD Unavailable Unavailable LyndaGwendolyn santiago MD Unavailable Unavailable LyndaGwendolyn santiago MD Unavailable Unavailable LyndaGwendolyn santiago MD Unavailable Unavailable LyndaGwendolyn santiago MD Unavailable Unavailable LyndaGwendolyn santiago MD Unavailable Unavailable LyndaGwendolyn santiago MD Unavailable Unavailable LyndaGwendolyn santiago MD Unavailable Unavailable LyndaGwendolyn santiago MD Unavailable Unavailable LyndaGwendolyn santiago MD Unavailable Unavailable LyndaGwendolyn santiago MD Unavailable Unavailable LyndaGwendolyn santiago MD Unavailable Unavailable LyndaGwendolyn santiago MD Unavailable Unavailable LyndaGwendolyn santiago MD Unavailable Unavailable LyndaGwendolyn santiago MD Unavailable Unavailable LynGwendolyn gar MD Unavailable Unavailable LynGwendolyn gar MD Unavailable Unavailable LyndaGwednolyn santiago MD Unavailable Unavailable LyndaGwendoyln santiago MD Unavailable Unavailable LyndaGwendolyn santiago MD Unavailable Unavailable LyndaGwendolyn santiago MD Unavailable Unavailable LyndaGwendolyn santiago MD Unavailable Unavailable LynGwendolyn gar MD Unavailable Unavailable LynGwendolyn gar MD Unavailable Unavailable LyndaGwendolyn santiago MD Unavailable Unavailable LynGwendolyn gar MD Unavailable Unavailable LynGwendolyn gar MD Unavailable Unavailable LynGwendolyn gar MD Unavailable Unavailable LynGwendolyn gar MD Unavailable Unavailable LynGwendolyn gar MD Unavailable Unavailable LynGwendolyn gar MD Unavailable Unavailable LyndaGwendolyn santiago MD Unavailable Unavailable LynGwendolyn gar MD Unavailable Unavailable LynGwendolyn gar MD Unavailable Unavailable LynGwendolyn gar MD Unavailable Unavailable LynGwendolyn gar MD Unavailable Unavailable LynGwendolyn gar MD Unavailable Unavailable LyndaGwendolyn santiago MD Unavailable Unavailable LyndaGwendolyn santiago MD Unavailable Unavailable LynGwendolyn gar MD Unavailable Unavailable LynGwendolyn gar MD Unavailable Unavailable LynGwendolyn gar MD Unavailable Unavailable LyndaGwendolyn santiago MD Unavailable Unavailable LyndaGwendolyn santiago MD Unavailable Unavailable LyndaGwendolyn santiago MD Unavailable Unavailable LyndaGwendolyn santiago MD Unavailable Unavailable Gwendolyn Huynh MD Unavailable Unavailable Gwendolyn Huynh MD Unavailable Unavailable Gwendolyn Huynh MD Unavailable Unavailable Gwendolyn Huynh MD Unavailable Unavailable Gwendolyn Huynh MD Unavailable Unavailable Gwendolyn Huynh MD Unavailable Unavailable Gwendolyn Huynh MD Unavailable Unavailable Gwendolyn Huynh MD Unavailable Unavailable Gwendolyn Huynh MD Unavailable Unavailable Gwendolyn Huynh MD Unavailable Unavailable Gwendolyn Huynh MD Unavailable Unavailable Gwendolyn Huynh MD Unavailable Unavailable Gwendolyn Huynh MD Unavailable Unavailable Gwendolyn Huynh MD Unavailable Unavailable Gwendolyn Hyunh MD Unavailable Unavailable Gwendolyn Huynh MD Unavailable Unavailable Gwendolyn Huynh MD Unavailable Unavailable Gwendolyn Huynh MD Unavailable Unavailable Gwendolyn Huynh MD Unavailable Unavailable Gwendolyn Huynh MD Unavailable Unavailable Gwendolyn Huynh MD Unavailable Unavailable Gwendolyn Huynh MD Unavailable Unavailable MarcCompa MD Unavailable Unavailable MarcCompa MD Unavailable Unavailable Marc, Compa Hamilton MD Unavailable Unavailable MarcCompa MD Unavailable Unavailable MarcCompa MD Unavailable Unavailable MarcCompa MD Unavailable Unavailable MarcCompa MD Unavailable Unavailable Marc, Compa Hamilton MD Unavailable Unavailable Marc, Compa Hamilton MD Unavailable Unavailable Marc, Compa Hamilton MD Unavailable Unavailable MarcCompa MD Unavailable Unavailable Marc Compa Alfonso FERNANDEZ Unavailable Unavailable MarcCompa MD Unavailable Unavailable MarcCompa MD Unavailable Unavailable MarcCompa MD Unavailable Unavailable MarcCompa MD Unavailable Unavailable MarcCompa MD Unavailable Unavailable MarcCompa MD Unavailable Unavailable MarcCompa MD Unavailable Unavailable MarcCompa Alfonso MD Unavailable Unavailable Marc, Compa Alfonso MD Unavailable Unavailable Marc Compa Alfonso Unavailable Unavailable MarcCompa MD Unavailable Unavailable MarcCompa MD Unavailable Unavailable Marc, Compa Alfonso MD Unavailable Unavailable Marc, Compa Hamilton MD Unavailable Unavailable Marc, Compa Alfonso MD Unavailable Unavailable Marc, Compa Alfonso MD Unavailable Unavailable Marc, Compa Alfonso MD Unavailable Unavailable Marc, Compa Alfonso MD Unavailable Unavailable Marc, Compa Alfonso MD Unavailable Unavailable Marc, Compa Alfonso MD Unavailable Unavailable MarcCompa MD Unavailable Unavailable MarcCompa MD Unavailable Unavailable MarcCompa MD Unavailable Unavailable MarcCompa MD Unavailable Unavailable MarcCompa MD Unavailable Unavailable Marc, Compa Hamilton MD Unavailable Unavailable Teresa POPE MD Unavailable Unavailable Jannet Terrell MD Unavailable [...] Unavailable Jannet Terrell MD Unavailable Unavailable Jannet Trerell MD Unavailable Unavailable Jannet Terrell MD Unavailable Unavailable Jannet Terrell MD Unavailable Unavailable Gwendolyn Huynh MD Unavailable Unavailable Gwendolyn Huynh MD Unavailable Unavailable Gwendolyn Huynh MD Unavailable Unavailable Gwendolyn Huynh MD Unavailable Unavailable Gwendolyn Huynh MD Unavailable Unavailable Gwendolyn Huynh MD Unavailable Unavailable Gwendolyn Huynh MD Unavailable Unavailable Gwendolyn Huynh MD Unavailable Unavailable Gwendolyn Huynh MD Unavailable Unavailable Gwendolyn Huynh MD Unavailable Unavailable Gwendolyn Huynh MD Unavailable Unavailable Gwendolyn Huynh MD Unavailable Unavailable Gwendolyn Huynh MD Unavailable Unavailable Gwendolyn Huynh MD Unavailable Unavailable Gwendolyn Huynh MD Unavailable Unavailable Gwendolyn Huynh MD Unavailable Unavailable Gwendolyn Huynh MD Unavailable Unavailable Gwnedolyn Huynh MD Unavailable Unavailable Gwendolyn Huynh MD Unavailable Unavailable Gwendolyn Huynh MD Unavailable Unavailable Gwendolyn Huynh MD Unavailable Unavailable Gwendolyn Huynh MD Unavailable Unavailable Gwendolyn Huynh MD Unavailable Unavailable Gwendolyn Huynh MD Unavailable Unavailable Gwendolyn Huynh MD Unavailable Unavailable Gwendolyn Huynh MD Unavailable Unavailable Gwendolyn Huynh MD Unavailable Unavailable Gwendolyn Huynh MD Unavailable Unavailable Gwendolyn Huynh MD Unavailable Unavailable LyndaGwendolyn santiago MD Unavailable Unavailable LyndaGwendolyn santiago MD Unavailable Unavailable LyndaGwendolyn santiago MD Unavailable Unavailable LyndaGwendolyn santiago MD Unavailable Unavailable LyndaGwendolyn santiago MD Unavailable Unavailable LyndaGwendolyn santiago MD Unavailable Unavailable LyndaGwendolyn santiago MD Unavailable Unavailable LyndaGwendolyn santiago MD Unavailable Unavailable LyndaGwendolyn santiago MD Unavailable Unavailable LyndaGwendolyn santiago MD Unavailable Unavailable LyndaGwendolyn santiago MD Unavailable Unavailable LyndaGwendolyn santiago MD Unavailable Unavailable LyndaGwendolyn santiago MD Unavailable Unavailable LyndaGwendolyn santiago MD Unavailable Unavailable LyndaGwendolyn santiago MD Unavailable Unavailable LyndaGwendolyn santiago MD Unavailable Unavailable LyndaGwendolny santiago MD Unavailable Unavailable LyndaGwendolyn santiago MD Unavailable Unavailable LyndaGwendolyn santiago MD Unavailable Unavailable LyndaGwendolyn santiago MD Unavailable Unavailable LyndaGwendolyn santiago MD Unavailable Unavailable LyndaGwendolyn santiago MD Unavailable Unavailable LyndaGwendolyn santiago MD Unavailable Unavailable LyndaGwendolyn santiago MD Unavailable Unavailable LyndaGwendolyn santiago MD Unavailable Unavailable LyndaGwenodlyn santiago MD Unavailable Unavailable LyndaGwendolyn santiago MD Unavailable Unavailable LynGwendolyn gar MD Unavailable Unavailable LyndaGwendolyn santiago MD Unavailable Unavailable LyndaGwendolyn santiago MD Unavailable Unavailable LynGwendolyn gar MD Unavailable Unavailable LynGwendolyn gar MD Unavailable Unavailable LynGwendolyn gar MD Unavailable Unavailable LynGwendolyn gar MD Unavailable Unavailable LynGwendolyn gar MD Unavailable Unavailable LyndaGwendolyn santiago MD Unavailable Unavailable LyndaGwendolyn santiago MD Unavailable Unavailable LynGwendolyn gar MD Unavailable Unavailable LynGwendolyn gar MD Unavailable Unavailable LynGwendolyn gar MD Unavailable Unavailable LynGwendolyn gar MD Unavailable Unavailable LyndaGwendolyn santiago MD Unavailable Unavailable LyndaGwendolyn santiago MD Unavailable Unavailable LyndaGwendolyn santiago MD Unavailable Unavailable LyndaGwendolyn santiago MD Unavailable Unavailable LynGwendolyn gar MD Unavailable Unavailable LynGwendolyn gar MD Unavailable Unavailable LynGwendolyn gar MD Unavailable Unavailable LyndaGwendolyn santiago MD Unavailable Unavailable LyndaGwendolyn santiago MD Unavailable Unavailable LynGwendolyn garen MD Unavailable Unavailable Gwendolyn Huynh MD Unavailable Unavailable Gwendolyn Huynh MD Unavailable Unavailable Gwendolyn Huynh MD Unavailable Unavailable LynGwendolyn gar MD Unavailable Unavailable Gwendolyn Huynh MD Unavailable Unavailable Gwendolyn Huynh MD Unavailable Unavailable Gwendolyn Huynh MD Unavailable Unavailable LynGwendolyn gar MD Unavailable Unavailable LynGwendolyn gar MD Unavailable Unavailable LynGwendolyn gar MD Unavailable Unavailable LynGwendolyn gar MD Unavailable Unavailable XanderJannet MD Unavailable Unavailable XanderJannet MD Unavailable Unavailable XanderJannet MD Unavailable Unavailable XanderJannet MD Unavailable Unavailable XanderJannet MD Unavailable Unavailable XanderJannet MD Unavailable Unavailable Xander, Jannet FERNANDEZ Unavailable Unavailable XanderJannet MD Unavailable Unavailable XanderJannet MD Unavailable Unavailable XanderJannet MD Unavailable Unavailable XanderJannet MD Unavailable Unavailable XanderJannet MD Unavailable Unavailable XanderJannet MD Unavailable Unavailable XanderJannet MD Unavailable Unavailable XanderJannet MD Unavailable Unavailable XanderJannet MD Unavailable Unavailable XanderJannet MD Unavailable Unavailable XanderJannet MD Unavailable Unavailable XanderJannet MD Unavailable Unavailable XanderJannet MD Unavailable Unavailable Xander, Jannet FERNANDEZ Unavailable Unavailable Xander, Jannet FERNANDEZ Unavailable Unavailable XanderJannet MD Unavailable Unavailable XanderJannet MD Unavailable Unavailable XanderJannet MD Unavailable Unavailable XanderJannet MD Unavailable Unavailable Re-disclosure Warning The records [...] is protected by Article 27-F of the [facility] Public Health law. If you continue you may have access to information: Regarding HIV / AIDS; Provided by facilities licensed or operated by the [facility] Office of Mental Health; or Provided by the [facility] Office for People With Developmental Disabilities. If such information is present, then the following [facility] mandated warning applies: This information has been [...] law may result in a fine or care home sentence or both. A general authorization for the release of medical or other information is NOT sufficient authorization for further disc losure. Allergies and Adverse Reactions Type Description Substance Reaction Status Data Source(s ) Drug intolerance trazodone hydrochloride traZODone HCl night sweats Active Adocia ([employer]) Drug intolerance Albuterol Sulfate Powder Albuterol Sulfate trem ors and anxiety. Better with Xopenex Active [place] [facility] Family History Family Member Name Family Member Gender Family Member Status Date o f Status Description Data Source(s) Unknown Female Problem [facility] ([facility]) Encounters Encounter Providers Location Date Indications Data Source(s ) Outpatient Attender: JOHN POPE MD 08/22/2020 09:16:00 AM E [facility] Outpatient<td ID="encounterTypeDescripti onID0">[facility] phone call- NO CHARGE</td><td>Matt Huynh MD</td><td></td><td>07/06/2020</td><td>5:40PM</td><td>11:59PM</td><td></td> Attender: Matt Huynh MD 07/06/2020 05:40:00 PM [facility] - 07/06/2020 11:59:00 PM [facility] Outpatient<td ID="encounterTypeDescripti onID1">Transitional Care Management HIGH complexity</td><td>Matt Huynh MD</td><td>[facility]</td><td>07/06/2020</td><td>10:00AM</td><td>10:55AM</td><td></td> Attender: Matt Huynh MD [facility] 07/06/2020 10:00:00 AM EST - 07/06/2020 10:55:00 AM EST [place] [facility] ([facility]) Outpatient Attender: Alfonso Bradford/Yun/Twin/Heidy welsh 06/29/2020 08:15:00 AM EST [facility] ([facility], ) Outpatient<td ID="encounterTypeDescripti onID2">[Patient Encounter]</td><td>Matt Huynh MD</td><td></td><td>07/01/2020</td><td>06/27/2020 4:09PM</td><td>06/27/2020 11:59PM</td><td></td> Attender: Matt Huynh MD 0 04:09:00 PM EST - 06/27/2020 11:59:00 PM EST [facility] ([facility]) Outpatient<td ID="encounterTypeDescripti onID3">sick visit</td><td>Matt Huynh MD</td><td>[facility], [facility]</td><td>06/27/2020</td><td>10:42AM</td><td>11:15AM</td><td><content ID="encounterDiagnosisID3-0">Generalized Anxiety Disorder</content>, <content ID="encounterDiagnosisID3-1">Panic Disorder Without Agoraphobia</content></td> Attender: Matt Huynh MD [facility] 06/27/2020 10:42:00 AM EST - 06/27/2020 11:15:00 AM EST Panic Disorder Without AgoraphobiaGeneralized Anxiety DisorderPanic Disorder Without AgoraphobiaGeneralized Anxiety Disorder [place] [facility] ([facility]) Panic Disorder Without Agoraphobia Generalized Anxiety Disorder Panic Disorder Without Agoraphobia Generalized Anxiety Disorder Outpatient<td ID="encounterTypeDescripti onID4">Transitional Care Management HIGH complexity</td><td>Matt Huynh MD</td><td>[facility], [facility]</td><td>06/11/2020</td><td>4:16PM</td> <td>5:12PM</td><td><content ID="encounterDiagnosisID4-0">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</content>, <content ID="encounterDiagnosisID4- 1">Tachycardia Supraventricular</content>, <content ID="encounterDiagnosisID4- 2">Major Depression Chronic</content>, <content ID="encounterDiagnosisID4- 3">Adjustment Disorder with Anxiety</content></td> Attender: Matt Huynh MD [facility] 06/11/2020 04:16:00 PM EST - 06/11/2020 05:12:00 PM EST Adjustment Disorder with AnxietyAdjustme nt Disorder with AnxietyAdjustment Disorder with Anxiety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Tachycardia SupraventricularTachycardia SupraventricularTachycardia SupraventricularMajor Depression ChronicMajor Depression ChronicMajor Depression Chronic [facility] ([facility]) Adjustment Disorder with Anxiety Adjustment Disorder with Anxiety Adjustment Disorder with Anxiety 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 Tachycardia Supraventricular Tachycardia Supraventricular Tachycardia Supraventricular Major Depression Chronic Major Depression Chronic Major Depression Chronic Outpatient Attender: Alfonso Bradford/Yun/Twin/Re indl 06/09/2020 12:23:00 AM EST [facility] ([facility]) Outpatient Attender: Alfonso Bradford/Yun/Twin/Re indl 06/07/2020 12:23:00 AM EST [facility] ([facility]) Outpatient Attender: Alfonso Bradford/Yun/Twin/Re indl 06/06/2020 12:23:00 AM EST [facility] Outpatient Attender: Alfonso Bradford/Yun/Twin/Re indl 05/28/2020 09:45:00 AM EST [facility] Outpatient<td ID="encounterTypeDescripti onID5">[facility] phone call- NO CHARGE</td><td>Matt Huynh MD</td><td></td><td>06/11/2020</td><td>05/19/2020 4:00PM</td><td>05/19/2020 11:59PM</td><td></td> Attender: Matt Huyhn MD 0 04:00:00 PM EST - 05/19/2020 11:59:00 PM EST [place] [facility] ([facility]) Outpatient<td ID="encounterTypeDescripti onID6">Transitional Care Management HIGH complexity</td><td>Matt Huynh MD</td><td>[facility], [facility]</td><td>05/19/2020</td><td>1:24PM</td> <td>2:47PM</td><td><content ID="encounterDiagnosisID6-0">Lung Neoplasm Adenocarcinoma Metastatic To</content>, <content ID="encounterDiagnosisID6-1"> Diabetes Mellitus Type 2 - Uncomplicated, Controlled By Insulin</content></td> Attender: Matt Huynh MD [facility] 05/19/2020 01:24:00 PM EST - 05/19/2020 02:47:00 [...] Type 2 - Uncomplicated, Controlled By Insulin [place] [facility] ([facility]) Lung Neoplasm Adenocarcinoma Metastatic To [...] Terrell MD 05/05/2020 05:37:00 PM EDT C43.11 [facility] C43.11 Outpatient Attender: Jannet Bradford/Yun/Twin/Garret ndl 04/28/2020 02:30:00 PM EDT [facility] ([facility]) Outpatient Attender: Jannet Bradford/Yun/Twin/Garret ndl 04/10/2020 09:30:00 AM EDT [facility] ([facility]) Outpatient<td ID="encounterTypeDescripti onID7">TCMNV phone call- NO CHARGE</td><td>Matt Huynh MD</td><td></td><td>05/19/2020</td><td>04/07/2020 11:49AM</td><td>04/07/2020 11:59PM</td><td></td> Attender: Matt Huynh MD 0 11:49:00 AM EDT - 04/07/2020 11:59:00 PM EDT [place] [facility] ([facility]) Outpatient<td ID="encounterTypeDescripti onID8">followup</td><td>Marina Gibson RPA</td><td>[facility], [facility]</td><td>04/07/2020</td><td>8:53AM</td><td>9:33AM</td><td><content ID="encounterDiagnosisID8-0">Pneumonia</content></td> Attender: Marina KIM [facility] 04/07/2020 08:53:00 A M EDT - 04/07/2020 09:33:00 AM EDT PneumoniaPneumoniaPneumoniaPneumoniaPneumoniaPneumonia Pneumonia [place] [facility] ([facility]) Pneumonia Pneumonia Pneumonia Pneumonia Pneumonia Pneumonia Pneumonia Outpatient Attender: Marina KIM 04/02/2020 02: 00:00 PM EDT F/U RIGHT SIDED PLEURAL EFFUSION [facility] F/U RIGHT SIDED PLEURAL EFFUSION Outpatient Attender: Marina KIM 03/31/2020 04:31:00 PM EDT PNEUMONIA [facility] PNEUMONIA Outpatient<td ID="encounterTypeDescripti onID9">[Patient Encounter]</td><td>Marina Gibson RPA</td><td></td><td>04/01/2020</td><td>03/02/2020 4:11PM</td><td>03/02/2020 11:59PM</td><td></td> Attender: Marina KIM 03/02/2020 04:11:00 PM EDT - 03/02/2020 11:59:00 PM EDT [facility]) Outpatient<td ID="encounterTypeDescripti onID10">sick visit</td><td>Marina Gibson RPA</td><td>[facility]</td><td>03/02/2020</td><td>3:29PM</td><td>4:03PM</td><td><content ID="[id number]">Pneumonia</content></td> Attender: Marina KIM [facility] 03/02/2020 03:29:00 P Gaby EDT - 03/02/2020 04:03:00 PM EDT PneumoniaPneumoniaPneumoniaPneumoniaPneumoniaPneumoniaPneumoniaPneumonia [facility]) Pneumonia Pneumonia Pneumonia Pneumonia Pneumonia Pneumonia Pneumonia Pneumonia Outpatient Attender: Marina KIM 03/02/2020 01:22:00 PM EDT R05 [facility] R05 Outpatient<td ID="encounterTypeDescripti onID12">sick visit</td><td>Marina Gibson RPA</td><td>[facility]</td><td>12/19/2019</td><td>2:02PM</td><td>3:09PM</td><td><content ID="[id number]">Shoulder Strain Deltoid Muscle</content>, <content ID="[id number]">Pneumonia</content></td> Attender: Marina KIM [facility] 12/19/2019 02:02:00 P M EDT - 12/19/2019 03:09:00 PM EDT PneumoniaShoulder Strain Deltoid MuscleP neumoniaShoulder Strain Deltoid MusclePneumoniaShoulder Strain Deltoid MusclePneumoniaShoulder Strain Deltoid MusclePneumoniaShoulder Strain Deltoid MusclePneumoniaShoulder Strain Deltoid MusclePneumoniaShoulder Strain Deltoid MusclePneumoniaShoulder Strain Deltoid MusclePneumoniaShoulder Strain Deltoid Muscle [place] [facility] ([facility]) Pneumonia Shoulder Strain Deltoid Muscle [...] AM EDT - 12/19/2019 11:59:00 PM EDT [place] [facility] ([facility]) Outpatient Attender: Marina KIM 12/05/2019 09:36:[address] [facility] Outpatient<td ID="encounterTypeDescripti onID13">incident to previous visit- </td><td>Marina Gibson [facility]</td><td>[facility]</td><td>12/05/2019</td><td>8:12AM</td><td>9:16AM</td><td><content ID="[id number]">Pneumonia Right Middle Zone</content>, <content ID="[id number]">Diabetes Mellitus Type 2 - Uncomplicated, Uncontrolled</content>, <content ID="[id number]">Major Depression Chronic</content></td> Attender: Marina KIM [facility] 12/05/2019 08:12:00 AM EDT - 12/05/2019 09:16:00 [...] Mellitus Type 2 - Uncomplicated, Uncontrolled [facility] ([facility]) Pneumonia Right Middle Zone Pneumonia [...] , Uncontrolled Outpatient<td ID="encounterTypeDescripti onID14">sick visit</td><td>Marina Gibson [facility]</td><td>[facility]</td><td>10/14/2019</td><td>1:28PM</td><td>1:58PM</td><td><content ID="[id number]">Acute Bronchitis</content></td> Attender: Marina KIM [facility] 10/14/2019 01:28:00 P M EDT - 10/14/2019 01:58:00 PM EDT Acute BronchitisAcute BronchitisAcute Br onchitisAcute BronchitisAcute BronchitisAcute BronchitisAcute BronchitisAcute BronchitisAcute BronchitisAcute BronchitisAcute Bronchitis [facility] ([facility]) Acute Bronchitis Acute Bronchitis Acute Bronchitis Acute Bronchitis Acute Bronchitis Acute Bronchitis Acute Bronchitis Acute Bronchitis Acute Bronchitis Acute Bronchitis Acute Bronchitis Outpatient<td ID="encounterTypeDescripti onID15">[Patient Encounter]</td><td>Matt Huynh MD</td><td></td><td>09/23/2019</td><td>07/01/2019 4:54PM</td><td>07/01/2019 11:59PM</td><td></td> Attender: Matt Huynh MD 0 04:54:00 PM EDT - 07/01/2019 11:59:00 PM EST [place] [facility] ([facility]) Outpatient Attender: Matt Huynh MD 07/11/2019 04:51:0 0 PM EST SCREENING [facility] SCREENING Medications Medication Brand Name Start Date Product Form Dose Route Admi nistrative Instructions Pharmacy Instructions Status Indications Reaction Description Data Source(s) calcipotriene 0.41446 MG/MG Topical Oint ment [Calcitrene] Calcitrene 0.005% External Ointment Calcitrene 0.005% External Ointment 07/01/2020 12:00:0 0 AM EST 1 active calcipotriene 0.0 0005 MG/MG Topical Ointment [Calcitrene] [facility]) Clobetasol Propionate 0.0005 MG/MG Topic al Ointment Clobetasol Propionate 0.05% External Ointment Clobetasol Propionate 0.05% External Ointment 07/01/20 12:00:00 AM EST 1 active clobetasol propionate 0.0005 MG/MG Topical Ointment [facility] ([facility]) doxycycline hyclate 100 MG Oral Tablet Doxycycline Hyc late 100 MG Oral Tablet Doxycycline Hyclate 100 MG Oral Tablet 07/01/2020 12:00:00 AM EST 2 active doxycycline hyclate 100 MG Oral Tablet [facility]) cefdinir 300 MG Oral Capsule Cefdinir 300 MG Oral Caps ule Cefdinir 300 MG Oral Capsule 07/01/2020 12:00:00 AM EST 1 active cefdinir 300 MG Oral Capsule [facility]) Prednisone 10 MG Oral Tablet predniSONE 10 MG Oral Tab let predniSONE 10 MG Oral Tablet 07/01/2020 12:00:00 AM EST active prednisone 10 MG Oral Tablet [facility]) Lorazepam 0.5 MG Oral Tablet LORazepam 0.5 MG Oral Tab let LORazepam 0.5 MG Oral Tablet 06/27/2020 12:00:00 AM EST active lorazepam 0.5 MG Oral Tablet [facility] ([facility]) Trazodone Hydrochloride 50 MG Oral Tablet traZODone HC l 50 MG Oral Tablet traZODone HCl 50 MG Oral Tablet 06/27/2020 12:00:00 AM EST 1 aborted trazodone hydrochloride 50 MG Oral Tablet [facility] ([facility]) Levalbuterol 0.21 MG/ML Inhalant Solutio n Levalbuterol HCl 0.63 MG/3ML Inhalation Nebulization solution Levalbuterol HCl 0.63 MG/3ML Inhalation Nebulization solution 06/20/2020 12:00:00 AM EST 1 active levalbuterol 0.21 MG/ML Inhalation Solution [facility]) OneTouch Verio Flex System w/Device Kit OneTouch Verio Flex System w/Device Kit 06/19/2020 12:00:00 AM EST aborted OneTouch Verio Flex System [facility] ([facility]) Accu-Chek FastClix Lancets Miscellaneous Accu-Chek Fas tClix Lancets Miscellaneous 06/19/2020 12:00:00 AM EST acti ve Accu-Chek FastClix Lancets [facility] ([facility]) Accu-Chek Guide w/Device Kit Accu-Chek Guide w/Device Kit 12:00:00 AM EST active Accu-Chek Guide [facility] ([facility]) OneTouch Verio In Vitro Strip OneTouch Verio In Vitro Strip 06/19/2020 12:00:00 AM EST aborted OneTouch Verio [facility] ([facility]) OneTouch Delica Lancets 33G Miscellaneous OneTouch Del ica Lancets 33G Miscellaneous 06/19/2020 12:00:00 AM EST abor evangelina OneTouch Delica Lancets 33G [facility] ([facility]) Accu-Chek Guide In Vitro Strip Accu-Chek Guide In Vitro Stri p 06/19/2020 12:00:00 AM EST active Accu-Shannan k Guide [facility] ([facility]) Lorazepam 0.5 MG Oral Tablet LORazepam 0.5 MG Oral Tab let LORazepam 0.5 MG Oral Tablet 06/11/2020 12:00:00 AM EST aborted lorazepam 0.5 MG Oral Tablet [facility] ([facility]) 200 ACTUAT Albuterol 0.09 MG/ACTUAT Metered Dose Inhal er [Ventolin] Ventolin HFA 05/28/2020 12:00:00 AM EST RESPIRATORY completed MEDENT ([facility], ) Levalbuterol 0.21 MG/ML Inhalant Solution Levalbuterol HCL active MEDENT ([facility]ice, ) Prednisone 10 MG Oral Tablet Prednisone 04/28/2020 12:00:00 AM EDT completed MEDENT ([facility], ) Prednisone 20 MG Oral Tablet Prednisone 04/23/2020 12:00:00 AM EDT ORAL completed MEDENT ([facility], ) Prednisone 10 MG Oral Tablet Prednisone 04/13/2020 12:00:00 AM EDT ORAL completed MEDENT ([facility], ) Levalbuterol 0.21 MG/ML Inhalant Solution Levalbuterol HCL 04/10/2020 12:00:00 AM EDT active MED[facility] ([facility], ) Prednisone 20 MG Oral Tablet predniSONE 20 MG Oral Tab let predniSONE 20 MG Oral Tablet 04/07/2020 12:00:00 AM EDT 2 aborted prednisone 20 MG Oral Tablet [facility]) Azithromycin 250 MG Oral Tablet Azithromycin 250 MG Oral Tab let 04/07/2020 12:00:00 AM EDT aborted azithro mycin 250 MG Oral Tablet [facility]) Levofloxacin 500 MG Oral Tablet [Levaquin] Levaquin 50 0 MG Oral Tablet Levaquin 500 MG Oral Tablet 03/02/2020 12:00:00 AM EDT 1 aborted levofloxacin 500 MG Oral Tablet [Levaquin] [facility]) 30 ACTUAT fluticasone furoate 0.1 MG/ACT UAT / vilanterol 0.025 MG/ACTUAT Dry Powder Inhaler [Breo] Breo Ellipta 100-25 MCG/INH Inhalation Aerosol Powder Breath Activated Breo Ellipta 100-25 MCG/INH Inhalation A erosol Powder Breath Activated 03/02/2020 12:00:00 AM EDT 1 complete d 30 ACTUAT fluticasone furoate 0.1 MG/ACTUAT / vilanterol 0.025 MG/ACTUAT Dry Powder Inhaler [Breo] [facility] ([facility]) Basaglar KwikPen 100 UNIT/ML Subcutaneous Solution Pen -injector Basaglar KwikPen 100 UNIT/ML Subcutaneous Solution Pen-injector 02/11/2020 12:00:00 AM EDT active Sensor 3 ML insulin glargine 100 UNT/ML Pen Injector [Basaglar] [facility]) 24 HR metoprolol succinate 50 MG Extende d Release Oral Tablet Metoprolol Succinate ER 50 MG Oral Tablet Extended Release 24 Hour Metoprolol Succinate ER 50 MG Oral Tablet Extended Release 24 Hour 02/05/2020 12:00:00 AM EDT 1 active 24 HR metoprolol succinate 50 MG Extended Release Oral Tablet [facility]) empagliflozin 10 MG Oral Tablet [Jardiance] Jardiance 10 MG Oral Tablet Jardiance 10 MG Oral Tablet 02/05/2020 12:00:00 AM EDT 1 active empagliflozin 10 MG Oral Tablet [Jardiance] [facility] ([facility]) BD Pen Needle Isabel U/F 32G X 4 MM Miscellaneous BD Pen Needle Isabel U/F 32G X 4 MM Miscellaneous 01/24/2020 12:00:00 AM EDT a ctive BD Pen Needle Isabel U/F [facility] ([facility]) Enalapril Maleate 5 MG Oral Tablet Enalapril Maleate 5 MG Or al Tablet 01/20/2020 12:00:00 AM EDT 1 aborted enalap ril maleate 5 MG Oral Tablet [facility] ([facility]) Hydrochlorothiazide 12.5 MG Oral Tablet hydroCHLOROthi azide 12.5 MG Oral Tablet hydroCHLOROthiazide 12.5 MG Oral Tablet 01/20/2020 12:00:00 AM EDT 1 aborted hydrochlorothiazide 12.5 MG Oral Tablet [facility] ([facility]) Medrol 4 MG Oral Tablet Therapy Pack Medrol 4 MG Oral Tablet Therapy Pack 12/19/2019 12:00:00 AM EDT aborted {21 (methylprednisolone 4 MG Oral Tablet [Medrol]) } Pack [Medrol Dosepak] [facility] ([facility]) Levofloxacin 500 MG Oral Tablet [Levaquin] Levaquin 50 0 MG Oral Tablet Levaquin 500 MG Oral Tablet 12/05/2019 12:00:00 AM EDT 1 aborted levofloxacin 500 MG Oral Tablet [Levaquin] [facility] ([facility]) 30 ACTUAT fluticasone furoate 0.1 MG/ACT UAT / vilanterol 0.025 MG/ACTUAT Dry Powder Inhaler [Breo] Breo Ellipta 100-25 MCG/INH Inhalation Aerosol Powder Breath Activated Breo Ellipta 100-25 MCG/INH Inhalation A erosol Powder Breath Activated 12/05/2019 12:00:00 AM EDT 1 complete d 30 ACTUAT fluticasone furoate 0.1 MG/ACTUAT / vilanterol 0.025 MG/ACTUAT Dry Powder Inhaler [Breo] [facility] ([facility]) vilazodone hydrochloride 40 MG Oral Tablet [Viibryd] V iibryd 40 MG Oral Tablet Viibryd 40 MG Oral Tablet 11/20/2019 12:00:00 AM EDT 1 active vilazodone hydrochloride 40 MG Oral Tablet [Viibryd] [facility]) Azithromycin 250 MG Oral Tablet Azithromycin 250 MG Oral Tab let 10/14/2019 12:00:00 AM EDT aborted azithro mycin 250 MG Oral Tablet [facility]) Ozempic (0.25 or 0.5 MG/DOSE) 2 MG/1.5ML Subcutaneous Solution Pen-injector Ozempic (0.25 or 0.5 MG/DOSE) 2 MG/1.5ML Subcutaneous Solution Pen-injector 09/26/2019 12:00:00 AM EDT active 0.25 MG, 0.5 MG Dose 1.5 ML semaglutide 1.34 MG/ML Pen Injector [Ozempic] [facility]) Lovastatin 20 MG Oral Tablet Lovastatin 20 MG Oral Tablet 12:00:00 AM EDT 1 active lovastatin 20 MG Oral Tablet [facility]) 3 ML liraglutide 6 MG/ML Pen Injector [V ictoza] Victoza 18 MG/3ML Subcutaneous Solution Pen-injector Victoza 18 MG/3ML Subcutaneous Solution Pen-injector 08/14/2019 12:00:00 AM EST aborted 3 ML liraglutide 6 MG/ML Pen Injector [Victoza] [facility] ([facility]) Enalapril Maleate 5 MG Oral Tablet Enalapril Maleate 5 MG Or al Tablet 07/29/2019 12:00:00 AM EST 1 aborted enalap ril maleate 5 MG Oral Tablet [facility]) Hydrochlorothiazide 12.5 MG Oral Tablet hydroCHLOROthi azide 12.5 MG Oral Tablet hydroCHLOROthiazide 12.5 MG Oral Tablet 07/29/2019 12:00:00 AM EST 1 aborted hydrochlorothiazide 12.5 MG Oral Tablet [facility] ([facility]) Enalapril Maleate 5 MG / Hydrochlorothia zide 12.5 MG Oral Tablet Enalapril- hydroCHLOROthiazide 5-12.5MG Oral Tablet Enalapril-hydroCHLOROthiazide 5-12.5MG Oral Tablet 06/24/2019 12:00:00 AM EST 1 aborte d enalapril maleate 5 MG / hydrochlorothiazide 12.5 MG Oral Tablet [facility]) empagliflozin 10 MG Oral Tablet [Jardiance] Jardiance 10MG Oral Tablet Jardiance 10MG Oral Tablet 02/05/2019 12:00:00 AM EDT 1 aborted empagliflozin 10 MG Oral Tablet [Jardiance] [facility] ([facility]) 24 HR metoprolol succinate 50 MG Extende d Release Oral Tablet Metoprolol Succinate ER 50MG Oral Tablet Extended Release 24 Hour Metoprolol Succinate ER 50MG Oral Tablet Extended Release 24 Hour 02/05/2019 12:00:00 AM EDT 1 aborted 24 HR metoprolol succinate 50 MG Extended Release Oral Tablet [facility] ([facility]) Basaglar KwikPen 100UNIT/ML Subcutaneous Solution Pen- injector Basaglar KwikPen 100UNIT/ML Subcutaneous Solution Pen-injector 01/24/2019 12:00:00 AM EDT aborted Sensor 3 ML insulin glarg ine 100 UNT/ML Pen Injector [Basaglar] [facility] ([facility]) vilazodone hydrochloride 40 MG Oral Tablet [Viibryd] V iibryd 40MG Oral Tablet Viibryd 40MG Oral Tablet 12/04/2018 12:00:00 AM EDT 1 aborted vilazodone hydrochloride 40 MG Oral Tablet [Viibryd] [facility] ([facility]) Lovastatin 20 MG Oral Tablet Lovastatin 20MG Oral Tabl et Lovastatin 20MG Oral Tablet 09/24/2018 12:00:00 AM EDT 1 aborted lovastatin 20 MG Oral Tablet [facility] ([facility]) calcipotriene 0.58822 MG/MG Topical Oint ment [Calcitrene] Calcitrene 0.005% External Ointment Calcitrene 0.005% External Ointment 06/28/2018 12:00:0 0 AM EST 1 aborted calcipot riene 0.41078 MG/MG Topical Ointment [Calcitrene] [facility]) Clobetasol Propionate 0.0005 MG/MG Topic al Ointment Clobetasol Propionate 0.05% EX OINT Clobetasol Propionate 0.05% EX OINT 04/02/2018 12:00:00 AM EDT 1 aborted clobetasol propionate 0.0005 MG/MG Topical Ointment [facility] ([facility]) BD Pen Needle Isabel U/F 32G X 4 MM MISC BD Pen Needle Isabel U/ F 32G X 4 MM MISC 03/30/2016 12:00:00 AM EDT aborted BD Pen Needle Isabel U/F [facility] ([facility]) Insurance Providers Payer name Policy type / Coverage type Policy ID Covered constitution party ID Covered constitution party's relationship to hernandez Policy Hernandez Plan Information [facility] [id number] MEDICARE [id number] [facility] [id number] [facility] O [id number] S [id number] MEDICARE [id number] SP [id number] [facility] [id number] SELF PAY ONLY [id number] SP [id number] [employer] [place] Other 0 Self 0 [place] [place] Other 0 Self 0 [employer] [place] Other 0 Self 0 [place] [place] Other 0 Self 0 [place] [place] Other 0 Self 0 [employer] [place] Other 0 Self 0 [employer] Dependent BLUE CROSS OUT OF STATE [id number] Spouse [id number] HMO BLUE [id number] Patient [id number] [employer] Family Dependent BC/BS PPO/EPO (28) [id number] Problems, Conditions, and Diagnoses Code Display Name Description Problem Type Effective Dates Data Source(s) 05846508 Essential hypertension Essential hypertension Problem 08/16/2020 12:00:00 AM EST JOESPH ([facility], ) [id number] Type 1 diabetes mellitus Type 1 diabetes mellitus Prob sheela 08/16/2020 12:00:00 AM EST JOESPH ([facility], ) 300.01 Anxiety Disorder Due To Gen Medical Cond ition, Panic Attacks Anxiety Disorder Due To Gen Medical Condition, Panic Attacks Problem 1 08/28/2019 12:00:00 AM EST MYLES ([facility]) [id number] Anxiety Disord Due To Gen Medical Cond, Generalized Anxiety Anxiety Disord Due To Gen Medical Cond, Generalized Anxiety Problem 12:00:00 AM EST [facility] 300.01 Anxiety Disorder Due To Gen Medical Cond ition, Panic Attacks Anxiety Disorder Due To Gen Medical Condition, Panic Attacks Problem 1 08/28/2019 12:00:00 AM EST [facility] [id number] Anxiety Disord Due To Gen Medical Cond, Generalized Anxiety Anxiety Disord Due To Gen Medical Cond, Generalized Anxiety Problem 12:00:00 AM [facility] ([facility]) [id number] Non-small cell lung cancer (disorder) Susana ng Neoplasm Malignant (Non- small Cell) Stage IV Problem 05/30/2020 12:00:00 AM [facility] ([facility]) [id number] Non-small cell lung cancer (disorder) Susana ng Neoplasm Malignant (Non- small Cell) Stage IV Problem 05/30/2020 12:00:00 AM [facility] ([facility]) [id number] Non-small cell lung cancer (disorder) Susana ng Neoplasm Malignant (Non- small Cell) Stage IV Problem 05/30/2020 12:00:00 AM EST Adocia ([facility]) [id number] Non-small cell lung cancer (disorder) Susana ng Neoplasm Malignant (Non- small Cell) Stage IV Problem 05/30/2020 12:00:00 AM EST Adocia ([facility]) [id number] Non-small cell lung cancer (disorder) Susana ng Neoplasm Malignant (Non- small Cell) Stage IV Problem 05/30/2020 12:00:00 AM [facility] ([facility]) Surgeries/Procedures Procedure Description Date Indications Data Source(s) no charge procedure no charge procedure 06/11/2020 12:00:00 AM [facility] ([facility]) no charge procedure no charge procedure 06/11/2020 12:00:00 AM [facility] ([facility]) Medication Reconciliation Incentive Medication Reconciliatio n Incentive 06/11/2020 12:00:00 AM [facility] ([facility]) INSERTION INDWELLING TUNNELED PLEURAL CATHETER 12:00:00 AM [facility] Venipuncture (routine) Venipuncture (routine) 05/22/2020 12:00:00 A M [facility] MYLES ([facility]) CBC CBC 05/22/2020 12:00:00 AM EST Minesh CROSS ([facility]) BMP-Basic Metabolic Profile BMP-Basic Metabolic Profile 05/10 12:00:00 AM [facility] no charge procedure no charge procedure 05/19/2020 12:00:00 AM [facility] ([facility]) Medication Reconciliation Incentive Medication Reconciliatio n Incentive 05/19/2020 12:00:00 AM [facility] ([facility]) Bronchoscopy W/Brushing Or Protected Brushings 12:00:00 AM [facility] ([facility], ) Bronchoscopy W/Bronchial Alveolar Lavage 04/22/2020 12 :00:00 AM [facility] ([facility], ) Bronchoscopy W/Biopsy 04/22/2020 12:00:00 AM [facility] ([facility]) Bronchoscopy, W/Transbronchial Needle Aspiration Biopsy Addl Lobe 04/22[facility]2020 [facility] With Endobronchial Ultrasound Guided 04/22/2020 12:00: 00 AM [facility] ([facility]) Airway Inhalation Treatment 04/10/2020 12:00:00 AM [facility] ([facility]) -collection of capillary blood (fingerstick, heel ) -c ollection of capillary blood (fingerstick, heel ) 12/05/2019 12:00:00 AM EDT JOSÉ MIGUEL COLIN ([facility]) HgbA1C HgbA1C 12/05/2019 12:00:00 AM EDT Minesh CROSS ([facility]) Results ID Date Data Source [id number] 08/29/2020 10:00:00 AM EST [facility] Name Value Range Interpretation Code Description Data Kylah rce(s) Supporting Document(s) SARS coronavirus 2 RNA Not Detected [facility] [place] This lab was ordered by [facility] and reported by [facility]. ID Date Data Source [id number] 08/22/2020 10:33:00 AM EST [facility] Name Value Range Interpretation Code Description Data Kylah rce(s) Supporting Document(s) Prothrombin Time (Patient) 11.3 s 9.6-12.3 N [facility] INR 1.1 0.9-1.1 [facility] THE INR IS OPERATIONALLY DEFINED FOR JEFF SH PLASMA FROMPATIENTS STABILIZED ON ORAL ANTICOAGULANTS.ROUTINE ANTICOAGULANT THERAPY 2.0-3.0RECURRENT SYSTEMIC EMBOLISM/HEART VALVE REPLACEMENT 2.5-3.5 aPTT.lupus sensitive (LA screen) 25.1 s 22.7-31.6 [facility] ID Date Data Source [id number] 08/05/2020 07:37:00 AM EST [facility] Name Value Range Interpretation Code Description Data Kylah rce(s) Supporting Document(s) SARS-CoV-2 (COVID 19) NEGATIVE - SARS-CoV-2 (COVID19) [facility] This lab was ordered by [facility] a nd reported by [facility]. ID Date Data Source [id number] 06/30/2020 02:37:00 PM EST [facility] ([facility], ) Name Value Range Interpretation Code Description Data Kylah rce(s) Supporting Document(s) Glucose [Mass/volume] in Capillary blood by Glucometer 115 mg/dL 80-115 Normal (applies to non-numeric results) [facility] ([facility], ) ID Date Data Source [id number] 06/30/2020 10:41:00 AM EST [facility] Name Value Range Interpretation Code Description Data Kylah rce(s) Supporting Document(s) SARS coronavirus 2 RNA [Presence] in Res piratory specimen by GARTH with probe detection [facility] This lab was ordered by [facility] a nd reported by [facility]. ID Date Data Source [id number] 05/22/2020 08:22:00 AM EST [facility] ([facility]) Name Value Range Interpretation Code Description Data Kylah rce(s) Supporting Document(s) GRAN% 73.9 % GRAN% [facility] ([facility]) Note: Responsible Observer: KM HCT 37.1 % HCT [facility] ([facility]) Note: Responsible Observer: KM GRAN# 4.2 /mm3 GRAN# [facility] ([facility]) Note: Responsible Observer: KM LY# 1.0 /mm3 Below low normal LY# [facility]LES ([facility]) Note: Responsible Observer: KM HGB 12.3 g/dl HGB [facility] ([facility]) Note: Responsible Observer: KM MCH 27.5 pg MCH [facility] ([facility]) Note: Responsible Observer: KM LY% 17.3 % Below low normal LY% [facility] ([facility]) Note: Responsible Observer: KM MID# 0.5 /mm3 MID# MYLES ([facility]) Note: Responsible Observer: KM MCV 82.8 um3 MCV [facility] ([facility]) Note: Responsible Observer: KM MCHC 33.2 G/DL MCHC [facility] ([facility]) Note: Responsible Observer: KM MID% 8.7 % Above high normal MID% [facility] ([facility]) Note: Responsible Observer: KM MPV 10.8 um3 MPV [facility] ([facility]) Note: Responsible Observer: KM WBC 5.6 /mm3 WBC [facility] ([facility]) Note: Responsible Observer: KM RBC 4.48 /mm3 RBC [facility] ([facility]) Note: Responsible Observer: KM PLT 228 /mm3 PLT [facility] ([facility]) Note: Responsible Observer: KM RDW 18.6 % Above high normal RDW [facility] ([facility]) Note: Responsible Observer: KM ID Date Data Source [id number] 05/22/2020 08:22:00 AM EST [facility] ([facility]) Name Value Range Interpretation Code Description Data Kylah rce(s) Supporting Document(s) Urea nitrogen [Moles/volume] in Blood 26 mg/dl Abo ve high normal Urea Nitrogen [facility] ([facility]) Note: Responsible Observer: KM Calcium [Moles/volume] in Urine collected for unspecified durati on 8.7 mg/dl Calcium [facility] ([facility]) Note: Responsible Observer: KM Creatinine [Moles/volume] in Vitreous fluid 1 mg/dl Creatinine [facility] ([facility]) Note: Responsible Observer: KM Chloride [Moles/volume] in Serum, Plasma or Blood 102 mmol/L Chloride [facility] ([facility]) Note: Responsible Observer: KM CO2 27 mmol/L CO2 [facility] ([facility]) Note: Responsible Observer: KM EGFR - Non AF AM 55 N/A Above high normal EGFR - Non A F AM [facility] ([facility]) Note: Responsible Observer: KM EGFR - AfricanAm > 60 N/A EGFR - AfricanAm [facility] ([facility]) Note: Responsible Observer: KM Potassium [Mass/volume] in Blood 3.6 mmol/L Pot assium [facility] ([facility]) Note: Responsible Observer: KM Glucose [Mass/volume] in Urine collected for unspecified duratio n 148 mg/dl Above high normal Glucose [facility] ([facility]) Note: Responsible Observer: KM Sodium [Moles/volume] in Serum, Plasma or Blood 136 mmol/L Sodium [facility] ([facility]) Note: Responsible Observer: KM ID Date Data Source [id number] 05/12/2020 02:54:00 PM EST [facility]) Name Value Range Interpretation Code Description Data Kylah rce(s) Supporting Document(s) ABG pH (Arterial) 7.419 units 7.350-7.450 Normal (applie s to non-numeric results) [facility], ) ABG Partial Pressure Co2 37.3 mmHg 35.0-45.0 Normal (applies to non-numeric results) [facility]) ABG Total Co2 24.7 meq/L 23.0-31.0 Normal (applies to non-numeric re sults) [facility] ([facility]) ABG Hco3 23.6 meq/L 22.0-26.0 Normal (applies to non-numeric resul ts) [facility]) ABG Partial Pressure O2 70.7 mmHg 75.0-100.0 Below low normal [facility]) ABG Standard Hco3 24.0 meq/L 22.0-26.0 Normal (applies to non- numeric results) [facility]) ABG Base Excess -0.6 Normal (applies to non-numeric results) [facility]) ABG O2 Saturation 94.7 % 95.0-99.0 Below low normal M [facility]ENT ([facility], ) ABG Site Laboratory test result Normal (applies to non-n umeric results) [facility], ) ID Date Data Source [id number] 05/06/2020 08:03:00 AM EDT [facility] [address] [place] [id number] [phone] NAME SEX PT STATUS ACCOUNT NUMBER CODY AMATO REG REF [id number] ORDERING PHYSICIAN LOCATION MEDICAL RECORD NO. Jannet Terrell MD RAD [id number] ATTENDING PHYSICIAN DATE OF DATE OF EXAM/TIME Mtat Huynh MD 1955 05[birth year]/201747 TYPE / EXAM [...] Trans Dt/Tm: Trans by: DT Prt Dt/Tm: [id number]: Total DLP = 0.00 mGy-cm Fluoroscopy Time (in secs): Name Value Range Interpretation Code Description Data Kylah rce(s) Supporting Document(s) ID Date Data Source [id number] 04/22/2020 11:49:00 AM EDT [facility] Name Value Range Interpretation Code Description Data Kylah rce(s) Supporting Document(s) Microscopic observation [Identifier] in Unspecified specimen by Non- gynecological cytology method Laboratory test result [facility] ([facility]) SPECIMEN: Bronchial brushing (right upper lobe) Prepared slides and brush in vial received SPECIMEN ADEQUACY: Satisfactory for evaluation CATEGORIZATION: Atypical cytology DESCRIPTIONS: Scant atypical cells exhbiting variation in size and nuclei with prominent nucleoli in a background of brochial cells and blood elements. Please correlate with surgical case [id number]. COMMENTS: [id number] Signed SUKHI AWAD(ASCP) 04/23/2020 1149 (Prelim) Signed JYOTSNA SIDDIQUI MD 04/23/[id number] ID Date Data Source [id number] 04/22/2020 11:48:00 AM EDT [facility] ([facility]) Name Value Range Interpretation Code Description Data [facility] rce(s) Supporting Document(s) Microscopic observation [Identifier] in Unspecified specimen by Non- gynecological cytology method Laboratory test result [facility] ([facility]) SPECIMEN: FNA Left hilar lymp h node Cytolyt and prepared slides received SPECIMEN ADEQUACY: Satisfactory for evaluation CATEGORIZATION: Positive for Malignancy DESCRIPTIONS: Scattered clusters small groups and single atypical cells noted exhbiting atypical nuclei with prominent single and multiple nucleoli. The background consists of bronchial cells, pulmonary macrophages, scattere lymphocytes and red blood cells. COMMENTS: Please correlate with surgical case [id number]. 04/23/20201554 Signed SUKHI AWAD(ASCP) 04/23/2020 1005 (Prelim) Signed JYOTSNA SIDDIQUI MD 04/23/2020 1556 ID Date Data Source [id number] 04/22/2020 10:47:00 AM EDT [facility] Name Value Range Interpretation Code Description Data Kylah rce(s) Supporting Document(s) Surgical pathology study Laboratory test result [facility] ([facility]) FINAL DIAGNOSIS A - Lung, right [...] 04/22/20201525 Signed JYOTSNA SIDDIQUI MD 04/24/2020 111 ID Date Data Source [id number] 04/22/2020 10:47:00 AM EDT [facility] ([facility]) Name Value Range Interpretation Code Description Data Kylah rce(s) Supporting Document(s) Surgical pathology study Laboratory test result [facility]) Addendum 3 Entered: 05/18/2020-1145 PD-L1 KEYTRUDA shows tumor proportion score of 25%/Expression. Positive for BRAF Negative for ALK Negative for ROS1 Negative for KRAS Negative for EGFR See complete reports from [facility] 4/TR 05/18/2020 - 1144 Addendum Signed____ Julisa Cerda MD 05/18/2020 1145 Addendum 2 Entered: 05/15/2020-0659 PD-L1 KEYTRUDA shows tumor proportion score of 25%/Expression. Positive for BRAF Negative for ALK Negative for ROS1 Negative for KRAS See complete reports from [facility] 4/TR 05/15/2020658 Addendum Signed____ Julisa Cerda MD 05/15/2020658 Addendum 1 Entered: 05/14/2020-0553 PD-L1 KEYTRUDA shows tumor proportion score of 25%/Expression. Positive for BRAF Negative for ROS1 Negative for KRAS ALK is pending, addendum will follow. See complete reports from [facility]. 05/14/2020552 Addendum Signed__Julisa Rojas MD 05/14/2020552 FINAL DIAGNOSIS A - Lung, [...] biopsy" and consists of three fragments of garica tissue measuring 0.3 x 0.3 x 0.2 cm. in aggregate. All in one. C - Received in formalin labeled "left upper lobe biopsy" and consists of two fragments of garcia tissue measuring 0.5 x 0.3 x 0.2 cm. in aggregate. All in one. -SV 04/22/20201525 Signed JYOTSNA SIDDIQUI MD 04/24/20201114 ID Date Data Source [id number] 04/22/2020 10:37:00 AM EDT [facility] ([facility]) Name Value Range Interpretation Code Description Data Kylah rce(s) Supporting Document(s) Microscopic observation [Identifier] in Unspecified specimen by Non- gynecological cytology method Laboratory test result [facility] ([facility]) SPECIMEN: Bronchoalveolar lav age (left upper lobe) 5ml Natural Steps SPECIMEN ADEQUACY: Satisfactory for evaluation CATEGORIZATION: Positive for Malignancy DESCRIPTIONS: Scattered small groups of atypical cells exhibiting increased n/c ratios and muclei with prominent macronucleoli. The background consists of bronchial cells, scattered pulmonary macrophages and blood elements. COMMENTS: Please correlate with surgical case [id number]. 04/23/20201555 Signed SUKHI AWAD CT(ASCP) 04/23/2020 111 (Prelim) Signed JYOTSNA SIDDIQUI MD 04/23/20201555 ID Date Data Source [id number] 04/22/2020 10:30:00 AM EDT [facility] ([facility]) Name Value Range Interpretation Code Description Data Kylah rce(s) Supporting Document(s) Microscopic observation [Identifier] in Unspecified specimen by Non- gynecological cytology method Laboratory test result [facility] ([facility]) will discuss at follow-up ID Date Data Source [id number] 04/22/2020 10:14:00 AM EDT [facility]) Name Value Range Interpretation Code Description Data Kylah rce(s) Supporting Document(s) Gram Stain Laboratory test result Normal (applies to non-n umeric results) [facility]) MANY RBCS FEW WBCS NO ORGANISMS SEEN Bal Culture Laboratory test result Normal (applies to non- numeric results) [facility]) FULL REPORT IN LAB NOTES ([facility] ). NO GROWTH AEROBICALLY ID Date Data Source [id number] 04/22/2020 10:14:00 AM EDT [facility] ([facility]) Name Value Range Interpretation Code Description Data Kylah rce(s) Supporting Document(s) Mycobacterium sp identified in Unspecifi ed specimen by Organism specific culture Laboratory test result [facility]) Due to limited sensitivity, smear result s should be used as an adjunct in evaluating patient tuberculosis status. Cultural examination is highly recommended for clinical diagnosis. AFB smear Kinyoun NEGATIVE (NO AFB Seen ) ID Date Data Source [id number] 04/22/2020 10:14:00 AM EDT [facility]) Name Value Range Interpretation Code Description Data Kylah rce(s) Supporting Document(s) Source Laboratory test result Normal (applies to non-n umeric results) [facility] ([facility]) BRON ALVEOLAR LAVAGE Color Laboratory test result Above high normal [facility] ([facility]) Appearance Laboratory test result Above high normal [facility] ([facility]) Bal WBC 53 CELLS/uL 0-10 Above high normal [facility] ([facility]) ID Date Data Source [id number] 04/22/2020 10:14:00 AM EDT [facility]) Name Value Range Interpretation Code Description Data Kylah rce(s) Supporting Document(s) Neutrophils, Bal 5 % Normal (applies to non-numeric results) [facility] ([facility]) Lymphocytes, Bal 25 % Normal (applies to non-numeric results) [facility] ([facility]) Monocytes/Macrophages, Bal 70 % Normal (applies to n on-numeric results) [facility]) ID Date Data Source [id number] 04/22/2020 10:14:00 AM EDT [facility] ([facility]) Name Value Range Interpretation Code Description Data Kylah rce(s) Supporting Document(s) Afb Smear Laboratory test result [facility] ([facility]) Due to limited sensitivity, smear result s should be used as an adjunct in evaluating patient tuberculosis status. Cultural examination is highly recommended for clinical diagnosis. AFB smear Kinyoun NEGATIVE (NO AFB Seen ) Afb Culture Laboratory test result [facility]) Testing performed at reference lab . Rep ort copy to follow on a separate form. 06/06/20 REF LAB#:[id number] FULL REPORT IN LAB NOTES ([facility] [place]). No Acid-Fast Bacilli Isolated after 6 Weeks. ID Date Data Source [id number] 04/22/2020 10:14:00 AM EDT [facility] ([facility]) Name Value Range Interpretation Code Description Data Kylah rce(s) Supporting Document(s) Fungal Smear Laboratory test result [facility] ([facility]) Testing performed at reference lab . Rep ort copy to follow on a separate form. 06/06/20 REF LAB#:[id number] SIMA/Calcofluor preparatio No fungus observed. Fungal Culture Other Source Laboratory test result [facility] ([facility]) Testing performed at reference lab . Rep ort copy to follow on a separate form. 06/06/20 REF LAB#:[id number] FUNGUS CULTURE [facility] No Yeast or Mold Isolated after 4 weeks. ID Date Data Source [id number] 04/22/2020 10:14:00 AM EDT [facility] ([facility]) Name Value Range Interpretation Code Description Data Kylah rce(s) Supporting Document(s) Afb Smear Laboratory test result [facility] ([facility]) Due to limited sensitivity, smear result s should be used as an adjunct in evaluating patient tuberculosis status. Cultural examination is highly recommended for clinical diagnosis. AFB smear Kinyoun NEGATIVE (NO AFB Seen ) Afb Culture Laboratory test result [facility]) Testing performed at reference lab . Rep ort copy to follow on a separate form. 07/28/20 REF LAB#:[id number] FULL REPORT IN LAB NOTES ([facility] [place]). No Acid-Fast Bacilli Isolated after 6 Weeks. ID Date Data Source [id number] 04/22/2020 09:08:00 AM EDT [facility] ([facility]) Name Value Range Interpretation Code Description Data Kylah rce(s) Supporting Document(s) Glucose [Mass/volume] in Capillary blood by Glucometer 168 mg/dL 80-115 Above high normal [facility] ([facility]) ID Date Data Source [id number] 04/22/2020 08:48:00 AM EDT [facility]) Name Value Range Interpretation Code Description Data Kylah rce(s) Supporting Document(s) Glucose, Fasting 146 mg/dL 70-100 Above high normal [facility] ([facility]) Blood Urea Nitrogen 19 mg/dL 7-18 Above high normal [facility] ([facility]) Glomerular Filtration Rate 51.8 Normal (applies to n on-numeric results) [facility]) <content>Units are mL/min/1.73 m2</content>
<content></content>
<content>Chronic Kidney Disease Staging per NKF:</content>
<content></content>
<content>Stage I & II GFR >=60 Normal to Mildly Decreased</content>
<content>Stage III GFR 30- 59 Moderately Decreased</content>
<content>Stage IV GFR 15-29 Severely Decreased</content>
<content>Stage V GFR <15 Very Little GFR Left</content>
<content>ESRD GFR <15 on PLASTIC CNC MACHINE OPERATOR</content>
<content></content> Creatinine For GFR 1.12 mg/dL 0.55-1.30 Normal (applies to non -numeric results) [facility] ([facility]) Sodium Level 138 meq/L 136-145 Normal (applies to non-numeric res ults) [facility] ([facility]) Potassium Serum 3.6 meq/L 3.5-5.1 Normal (applies to non-numeric results) [facility] ([facility]) Chloride Level 101 meq/L 98-107 Normal (applies to non-numeric r esults) [facility] ([facility]) Carbon Dioxide Level 31 meq/L 21-32 Normal (applies to non-num nando results) [facility] ([facility]) Anion Gap 6 meq/L 8-16 Below low normal [facility] ( [facility]) Ast/Sgot 30 U/L 7-37 Normal (applies to non-numeric resul ts) [facility] ([facility]) Calcium Level 9.3 mg/dL 8.8-10.2 Normal (applies to non-numeric re sults) [facility] ([facility]) Alt/SGPT 31 U/L 12-78 Normal (applies to non-numeric resul ts) [facility] ([facility]) Total Protein 8.0 GM/DL 6.4-8.2 Normal (applies to non-numeric re sults) [facility] ([facility]) Alkaline Phosphatase 213 U/L 45-117 Above high normal [facility] ([facility]) Bilirubin,Total 1.5 mg/dL 0.2-1.0 Above high normal [facility] ([facility]) Albumin 3.7 GM/DL 3.2-5.2 Normal (applies to non-numeric resul ts) [facility] ([facility]) Albumin/Globulin Ratio 0.9 1.2-2.2 Below low normal [facility] ([facility]) ID Date Data Source [id number] 04/22/2020 08:48:00 AM EDT [facility] ([facility]) Name Value Range Interpretation Code Description Data Kylah rce(s) Supporting Document(s) Red Blood Count 5.45 10 4.00-5.40 Above high normal [facility] ([facility]) White Blood Count 11.7 10 4.0-10.0 Above high normal [facility] ([facility]) Hemoglobin 13.6 g/dL 12.0-15.5 Normal (applies to non-numeric resul ts) [facility] ([facility]) Hematocrit 45.3 % 36.0-47.0 Normal (applies to non-numeric resul ts) [facility] ([facility]) Mean Corpuscular Hemoglobin 25.0 pg 27.0-33.0 Below low normal [facility] ([facility]) Mean Corpuscular Volume 83.1 fl 80.0-96.0 Normal ( applies to non-numeric results) [facility] ([facility]) Red Cell Distribution Width 15.3 % 11.5-14.5 Above high normal [facility] Mean Corpuscular HGB Conc 30.0 g/dL 32.0-36.5 Below low normal [facility] Neutrophils % 76.7 % 36.0-66.0 Above high normal [facility] ([facility]) Lymph % 11.2 % 24.0-44.0 Below low normal [facility] ( [facility]) Platelet Count, Automated 194 10 150-450 Normal (applies to non-numeric results) [facility] ([facility]) [place] % 8.9 % 0.0-5.0 Above high normal [facility] ([facility]) Eos % 1.6 % 0.0-3.0 Normal (applies to non-numeric resul ts) [facility] ([facility]) Baso % 0.9 % 0.0-1.0 Normal (applies to non-numeric resul ts) [facility] ([facility]) Nucleated Red Blood Cell % 0.0 % 0-0 Normal (applies to n on-numeric results) [facility] ([facility]) Immature Granulocyte % 0.7 % 0-3.0 Normal (applies to non-n umeric results) [facility]) Lymph # 1.3 10 1.5-5.0 Below low normal [facility] ( [facility]) Neutrophils # 9.0 10 1.5-8.5 Above high normal [facility] ([facility]) Eos # 0.2 10 0.0-0.5 Normal (applies to non-numeric resul ts) [facility] ([facility]) Baso # 0.1 10 0.0-0.2 Normal (applies to non-numeric resul ts) [facility]) [place] # 1.0 10 0.0-0.8 Above high normal [facility] ([facility]) ID Date Data Source [id number] 04/22/2020 08:48:00 AM EDT [facility]) Name Value Range Interpretation Code Description Data Kylah rce(s) Supporting Document(s) Angiotensin converting enzyme [Enzymatic activity/volu me] in Serum or Plasma 38 U/L 14-82 Normal (applies to non-numeric results) [facility]) Performed at: RN - [facility] [address] [id number] [place] Helper: Lily Weaver MD, Phone: [phone] ID Date Data Source [id number] 04/22/2020 08:48:00 AM EDT [facility] ([facility]) Name Value Range Interpretation Code Description Data Kylah rce(s) Supporting Document(s) Prothrombin Time 13.0 s 12.5-14.3 Normal (applies to non-numeric results) [facility] ([facility]) Inr 0.96 Normal (applies to non-numeric resul ts) [facility] ([facility]) THERAPUTIC HUMAN INR VALUES INDICATIONS NORMAL RANGES PROPHYLAXIS/TREATMENT OF: VENOUS THROMBOSIS 2.0-3.0 PULMONARY EMBOLISM 2.0-3.0 PREVENTION OF SYSTEMIC EMBOLISM FROM: TISSUE HEART VALVES 2.0-3.0 ACUTE MYOCARDIAL INFARCTION 2.0-3.0 VALVULAR HEART DISEASE 2.0-3.0 ATRIAL FIBRILLATION 2.0-3.0 MECHANICAL VALVES(HIGH RISK) 2.5-3.5 RECURRENT MYOCARDIAL INFARCTION 2.5-3.5 ID Date Data Source [id number] 04/17/2020 01:00:00 PM EDT [facility] Name Value Range Interpretation Code Description Data Kylah rce(s) Supporting Document(s) SARS coronavirus 2 RNA [facility] This lab was ordered by [facility] and reported by [facility]. ID Date Data Source [id number] 04/07/2020 09:24:00 AM EDT [facility] [address] [place] [address] [phone] NAME SEX PT STATUS ACCOUNT NUMBER CODY AMATO REG REF [id number] ORDERING PHYSICIAN LOCATION MEDICAL RECORD NO. Marina KIM Gibson CT [id number] ATTENDING PHYSICIAN DATE OF DATE OF EXAM/TIME [...] rce(s) Supporting Document(s) ID Date Data Source [id number] 03/31/2020 04:43:00 PM EDT [facility] [address] [place], [place] [address] [phone] NAME SEX PT STATUS ACCOUNT NUMBER CODY AMATO REG REF [id number] ORDERING PHYSICIAN LOCATION MEDICAL RECORD NO. Marina Gibson [facility] [id number] ATTENDING PHYSICIAN DATE OF DATE OF EXAM/TIME Matt Huynh MD 1955 03/31/201641 TYPE / EXAM Xray Chest 2 view PA/LAT REASON FOR EXAM F/U RLL PNEUMONIA CODY AMATO [id number] 1955 ADDENDUM Critical findings were reported by [...] 03/31/201642 Signed By Sherwin Esqueda MD on 03/31/201647 Date Time CC: Sherwin Esqueda MD; Matt Huynh MD Techn: PELBU Trans Dt/Tm: Trans by: DT Prt Dt/Tm: : Total DLP = 0.00 mGy-cm Fluoroscopy Time (in secs): Name Value Range Interpretation Code Description Data Kylah rce(s) Supporting Document(s) ID Date Data Source [id number] 03/03/2020 09:49:00 AM EDT [facility] [address] [place] [address] [phone] NAME SEX PT STATUS ACCOUNT NUMBER CODY AMATO REG REF [id number] ORDERING PHYSICIAN LOCATION MEDICAL RECORD NO. Marina KIM [facility] [id number] ATTENDING PHYSICIAN DATE OF DATE OF EXAM/TIME [...] mass. Reported By Sherwin Esqueda MD on 03/03/20 0949 Signed By Sherwin Esqueda MD on 03/03/20 0953 Date Time CC: Sherwin Esqueda MD; Matt Huynh MD Techn: CARAI Trans Dt/Tm: Trans by: DT Prt Dt/Tm: 4867-5414: Total DLP = 0.00 mGy-cm Fluoroscopy Time (in secs): Name Value Range Interpretation Code Description Data Kylah rce(s) Supporting Document(s) ID Date Data Source [id number] 12/05/2019 10:08:00 AM EDT [facility] [address] [place], [place] [address] [phone] NAME SEX PT STATUS ACCOUNT NUMBER CODY AMATO REG REF [id number] ORDERING PHYSICIAN LOCATION MEDICAL RECORD NO. Marina [facility] [id number] ATTENDING PHYSICIAN DATE OF DATE OF EXAM/TIME Matt Huynh MD 1955 12/05/19 / 1000 TYPE / EXAM Xray Chest 2 view [...] Trans Dt/Tm: Trans by: DT Prt Dt/Tm: 5906-1765: Total DLP = 0.00 mGy-cm Fluoroscopy Time (in secs): Name Value Range Interpretation Code Description Data Kylah rce(s) Supporting Document(s) ID Date Data Source [id number] 12/05/2019 09:33:00 AM EDT [facility] ([facility]) Name Value Range Interpretation Code Description Data Kylah rce(s) Supporting Document(s) Hemoglobin A1c/Hemoglobin.total in Blood 7.3 na Above high normal Hgba1c [facility] ([facility]) Note: Responsible Observer: KM ID Date Data Source [id number] 07/14/2019 12:24:00 PM [facility] [address] [place] [address] [phone] NAME SEX PT STATUS ACCOUNT NUMBER CODY AMATO REG REF [id number] ORDERING PHYSICIAN LOCATION MEDICAL RECORD NO. Matt Huynh MD MAMMO [id number] ATTENDING PHYSICIAN DATE OF DATE OF EXAM/TIME [...] mammogram was read with the assistance of Rhina, an FDA- approved computer-aided detection system for mammography. Reported By Sherwin Esqueda MD on 07/14/19 1224 Signed By Sherwin Esqueda MD on 07/14/19 1228 Date Time CC: Sherwin Esqueda MD; Matt Huynh MD Techn: PELBU Trans Dt/Tm: Trans by: DT Prt Dt/Tm: 101- 001: Total DLP = 0.00 mGy-cm 3514-2070: Total Radiation Dose = 0.0000 mSv Lifetime Dose: 0 mSv Name Value Range Interpretation Code Description Data Kylah rce(s) Supporting Document(s) Procedure Social History Code Duration Value Status Description Data Source(s ) Smoking 08/17/2020 12:00:00 AM EST Patient is a former smoker completed Patient is a former smoker [facility] ([facility]) Vital Signs ID Date Data Source UNK Name Value Range Interpretation Code Description Data Source(s) Body surface area Derived from formula 1.77 m2 1.77 m2 [facility] ([facility]) Body weight 79.834 kg 79.834 kg [facility] ([facility]) [place] body weight 100 [lb_av] 100 [lb_av] [facility] Body mass index (BMI) [Ratio] 34.4 kg/m2 34.4 k g/m2 [facility] ([facility]) Body weight 176.00 [lb_av] 176.00 [lb_av] [facility] Body height 60 [in_i] 60 [in_i] [facility] ([facility]) 5'0" Oxygen saturation in Arterial blood by Pulse oximetry 98 % 98 % [facility] ([facility]) o2 sat on 2L Heart rate 112 /min 112 /min [facility] ([facility]) Diastolic blood pressure 60 mm[Hg] 60 mm[Hg] [facility] ([facility]) Systolic blood pressure 106 mm[Hg] 106 mm[Hg] [facility] Oxygen saturation in Arterial blood by Pulse oximetry 98 % 98 % [facility] ([facility]) Body surface area Derived from formula 1.86 m2 1.86 m2 [facility] ([facility]) Body mass index (BMI) [Ratio] 36.5 kg/m2 36.5 k g/m2 [facility] ([facility]) Body weight 193 [lb_av] 193 [lb_av] [facility]) Body height 61 [in_i] 61 [in_i] [facility] ([facility]) Heart rate 110 /min 110 /min [facility] ([facility]) Diastolic blood pressure 68 mm[Hg] 68 mm[Hg] [facility] ([facility]) Systolic blood pressure 122 mm[Hg] 122 mm[Hg] [facility] Body surface area Derived from formula 1.81 m2 1.81 m2 [facility] ([facility]) Body weight 84.823 kg 84.823 kg [facility] ([facility]) [place] body weight 100 [lb_av] 100 [lb_av] [facility] ([facility]) Body mass index (BMI) [Ratio] 36.5 kg/m2 36.5 k g/m2 [facility] ([facility]) Body weight 187.00 [lb_av] 187.00 [lb_av] [facility] ([facility]) Body height 60 [in_i] 60 [in_i] [facility] ([facility]) 5'0" Oxygen saturation in Arterial blood by Pulse oximetry 99 % 99 % [facility] ([facility]) o2 sat on 2L Heart rate 118 /min 118 /min [facility] ([facility]) Diastolic blood pressure 68 mm[Hg] 68 mm[Hg] [facility] ([facility] ) Systolic blood pressure 130 mm[Hg] 130 mm[Hg] [facility] ([facility], ) Body surface area Derived from formula 1.83 m2 1.83 m2 [facility] ([facility]) Body mass index (BMI) [Ratio] 35.2 kg/m2 35.2 k g/m2 [facility] ([facility]) Body weight 186.375 [lb_av] 186.375 [lb_av] [facility] Body height 61 [in_i] 61 [in_i] [facility] ([facility]) Respiratory rate 32 /min 32 /min [facility] ([facility]) Heart rate 114 /min 114 /min [facility] ([facility]) Diastolic blood pressure 60 mm[Hg] 60 mm[Hg] [facility] ([facility]) Systolic blood pressure 100 mm[Hg] 100 mm[Hg] [facility] ([facility]) Inhaled oxygen concentration 28 % 28 % [facility] ([facility]) Inhaled oxygen flow rate 2 L/min 2 L/min [facility]) Oxygen saturation in Arterial blood by Pulse oximetry 98 % 98 % [facility] ([facility]) Body surface area Derived from formula 1.86 m2 1.86 m2 [facility] ([facility]) Body mass index (BMI) [Ratio] 36.3 kg/m2 36.3 k g/m2 [facility] ([facility]) Body weight 192 [lb_av] 192 [lb_av] [facility] ([facility]) Body height 61 [in_i] 61 [in_i] [facility] ([facility]) Diastolic blood pressure 79 mm[Hg] 79 mm[Hg] [facility] ([facility]) Systolic blood pressure 121 mm[Hg] 121 mm[Hg] [facility] ([facility]) Body surface area Derived from formula 1.83 m2 1.83 m2 [facility] ([facility], ) Body weight 86.184 kg 86.184 kg [facility] [place] body weight 100 [lb_av] 100 [lb_av] [facility] ([facility], ) Body mass index (BMI) [Ratio] 37.1 kg/m2 37.1 k g/m2 [facility] ([facility]) Body weight 190.00 [lb_av] 190.00 [lb_av] [facility] ([facility]) Body height 60 [in_i] 60 [in_i] [facility] ([facility]) 5'0" Oxygen saturation in Arterial blood by Pulse oximetry 95 % 95 % [facility] ([facility]) Room Air Heart rate 88 /min 88 /min [facility] ([facility]) Diastolic blood pressure 60 mm[Hg] 60 mm[Hg] [facility] ([facility]) Systolic blood pressure 120 mm[Hg] 120 mm[Hg] [facility] Body surface area Derived from formula 1.81 m2 1.81 m2 [facility] ([facility]) Body mass index (BMI) [Ratio] 34.2 kg/m2 34.2 k g/m2 [facility] ([facility]) Body weight 181 [lb_av] 181 [lb_av] [facility] ([facility]) Body height 61 [in_i] 61 [in_i] [facility] ([facility]) Heart rate 90 /min 90 /min [facility] ([facility]) Diastolic blood pressure 55 mm[Hg] 55 mm[Hg] [facility] ([facility]) Systolic blood pressure 99 mm[Hg] 99 mm[Hg] [facility] ([facility]) Body surface area Derived from formula 1.81 m2 1.81 m2 [facility] ([facility]) Body weight 84.370 kg 84.370 kg [facility] ([facility]) [place] body weight 100 [lb_av] 100 [lb_av] [facility] ([facility]) Body mass index (BMI) [Ratio] 36.3 kg/m2 36.3 k g/m2 [facility] ([facility]) Body weight 186.00 [lb_av] 186.00 [lb_av] [facility] ([facility]) Body height 60 [in_i] 60 [in_i] [facility] ([facility]) 5'0" Oxygen saturation in Arterial blood by Pulse oximetry 98 % 98 % [facility] ([facility]) Heart rate 91 /min 91 /min [facility] ([facility]) Diastolic blood pressure 62 mm[Hg] 62 mm[Hg] [facility] ([facility]) Systolic blood pressure 108 mm[Hg] 108 mm[Hg] [facility] ([facility]) Body weight 87.545 kg 87.545 kg [facility] ([facility]) [place] body weight 100 [lb_av] 100 [lb_av] [facility] ([facility]) Body mass index (BMI) [Ratio] 37.7 kg/m2 37.7 k g/m2 [facility] ([facility]) Body weight 193.00 [lb_av] 193.00 [lb_av] [facility] Body height 60 [in_i] 60 [in_i] [facility] ([facility]) 5'0" Oxygen saturation in Arterial blood by Pulse oximetry 90 % 90 % [facility] ([facility]) Heart rate 90 /min 90 /min [facility] ([facility]) Diastolic blood pressure 70 mm[Hg] 70 mm[Hg] [facility] ([facility]) Systolic blood pressure 110 mm[Hg] 110 mm[Hg] [facility] ([facility]) Systolic blood pressure 100 mm[Hg] 100 mm[Hg] [facility] Oxygen saturation in Arterial blood by Pulse oximetry 95 % 95 % [facility] ([facility]) Body surface area Derived from formula 1.85 m2 1.85 m2 [facility] ([facility]) Body mass index (BMI) [Ratio] 35.9 kg/m2 35.9 k g/m2 [facility] ([facility]) Body weight 190 [lb_av] 190 [lb_av] [facility] ([facility]) Body height 61 [in_i] 61 [in_i] [facility] ([facility]) Respiratory rate 24 /min 24 /min [facility] ([facility]) Heart rate 90 /min 90 /min [facility] ([facility]) Diastolic blood pressure 68 mm[Hg] 68 mm[Hg] [facility]) Oxygen saturation in Arterial blood by Pulse oximetry 93 % 93 % [facility] ([facility]) Body surface area Derived from formula 1.86 m2 1.86 m2 [facility]) Body mass index (BMI) [Ratio] 36.7 kg/m2 36.7 k g/m2 [facility]) Body weight 194 [lb_av] 194 [lb_av] [facility] ([facility]) Body height 61 [in_i] 61 [in_i] [facility] ([facility]) Body temperature 98.7 [degF] 98.7 [degF] [facility] ([facility]) Respiratory rate 30 /min 30 /min [facility] ([facility]) Heart rate 110 /min 110 /min [facility] ([facility]) Diastolic blood pressure 50 mm[Hg] 50 mm[Hg] [facility] ([facility]) Systolic blood pressure 82 mm[Hg] 82 mm[Hg] [facility] ([facility]) Body surface area Derived from formula 1.89 m2 1.89 m2 [facility]) Body mass index (BMI) [Ratio] 37.9 kg/m2 37.9 k g/m2 [facility]) Body weight 200.375 [lb_av] 200.375 [lb_av] [facility] ([facility]) Body height 61 [in_i] 61 [in_i] [facility] ([facility]) Respiratory rate 20 /min 20 /min [facility] ([facility]) Heart rate 88 /min 88 /min [facility] ([facility]) Diastolic blood pressure 62 mm[Hg] 62 mm[Hg] [facility] ([facility]) Systolic blood pressure 110 mm[Hg] 110 mm[Hg] [facility] ([facility]) Oxygen saturation in Arterial blood by Pulse oximetry 96 % 96 % [facility] ([facility]) Body surface area Derived from formula 1.90 m2 1.90 m2 [facility]) Body mass index (BMI) [Ratio] 38.2 kg/m2 38.2 k g/m2 [facility]) Body weight 202 [lb_av] 202 [lb_av] [facility] ([facility]) Body height 61 [in_i] 61 [in_i] [facility] ([facility]) Body temperature 98.2 [degF] 98.2 [degF] [place] ([facility]) Respiratory rate 26 /min 26 /min [facility] ([facility]) Heart rate 88 /min 88 /min [facility] ([facility]) Diastolic blood pressure 50 mm[Hg] 50 mm[Hg] [facility] ([facility]) Systolic blood pressure 98 mm[Hg] 98 mm[Hg] [facility]) Oxygen saturation in Arterial blood by Pulse oximetry 95 % 95 % [facility] ([facility]) Body height 61 [in_i] 61 [in_i] [facility] ([facility]) Body temperature 97.3 [degF] 97.3 [degF] [facility] ([facility]) Respiratory rate 26 /min 26 /min [facility] ([facility]) Heart rate 80 /min 80 /min [facility] ([facility]) Patient Treatment Plan of Care Planned Activity Planned Date Details Description Data Source (s) calcipotriene 0.66554 MG/MG Topical Ointment [Calcitre ne] 07/01/2020 12:00:00 AM [facility] ([facility]) Clobetasol Propionate 0.0005 MG/MG Topical Ointment 07/01/20 12:00:00 AM [facility] Trazodone Hydrochloride 50 MG Oral Tablet 06/27/2020 12:00:00 AM [facility] ([facility]) Lorazepam 0.5 MG Oral Tablet 06/27/2020 12:00:00 AM [facility]) OneTouch Delica Lancets 33G Miscellaneous 06/19/2020 12:00:00 AM [facility] ([facility]) OneTouch Verio In Vitro Strip 06/19/2020 12:00:00 AM [facility] ([facility]) OneTouch Verio Flex System w/Device Kit 06/19/2020 12:00:00 AM [facility]) Accu-Chek Guide In Vitro Strip 06/19/2020 12:00:00 AM [facility]) Accu-Chek Guide w/Device Kit 06/19/2020 12:00:00 AM [facility]) Accu-Chek FastClix Lancets Miscellaneous 06/19/2020 12:00:00 AM [facility]) Lorazepam 0.5 MG Oral Tablet 06/11/2020 12:00:00 AM [facility]) Prednisone 20 MG Oral Tablet 04/07/2020 12:00:00 AM [facility]) Azithromycin 250 MG Oral Tablet 04/07/2020 12:00:00 AM [facility]) Levofloxacin 500 MG Oral Tablet [Levaquin] 03/02/2020 12:00:00 AM [facility]) Basaglar KwikPen 100 UNIT/ML Subcutaneous Solution Pen -injector 02/11/2020 12:00:00 AM [facility] ([facility]) empagliflozin 10 MG Oral Tablet [Jardiance] 02/05/2020 12:00:00 AM [facility]) 24 HR metoprolol succinate 50 MG Extended Release Oral Tablet 02/05/2020 12:00:00 AM [facility] ([facility]) BD Pen Needle Isabel U/F 32G X 4 MM Miscellaneous 01/24/2020 12:00:00 AM [facility]) Hydrochlorothiazide 12.5 MG Oral Tablet 01/20/2020 12:00:00 AM [facility]) Enalapril Maleate 5 MG Oral Tablet 01/20/2020 12:00:00 AM [facility]) Medrol 4 MG Oral Tablet Therapy Pack 12/19/2019 12:00:00 AM [facility]) 30 ACTUAT fluticasone furoate 0.1 MG/ACT UAT / vilanterol 0.025 MG/ACTUAT Dry Powder Inhaler [Breo] 12/05/2019 12:00:00 AM [facility]) Levofloxacin 500 MG Oral Tablet [Levaquin] 12/05/2019 12:00:00 AM E [facility] ([facility]) vilazodone hydrochloride 40 MG Oral Tablet [Viibryd] 12:00:00 AM [facility]) Azithromycin 250 MG Oral Tablet 10/14/2019 12:00:00 AM [facility] ([facility]) Ozempic (0.25 or 0.5 MG/DOSE) 2 MG/1.5ML Subcutaneous Solution Pen-injector 09/26/2019 12:00:00 AM [facility] ([facility]) Lovastatin 20 MG Oral Tablet 09/23/2019 12:00:00 AM [facility]) 3 ML liraglutide 6 MG/ML Pen Injector [Victoza] 08/14/2019 12:00:00 AM [facility]) Hydrochlorothiazide 12.5 MG Oral Tablet 07/29/2019 12:00:00 AM [facility]) Enalapril Maleate 5 MG Oral Tablet 07/29/2019 12:00:00 AM [facility]) Enalapril Maleate 5 MG / Hydrochlorothiazide 12.5 MG O ral Tablet 06/24/2019 12:00:00 AM [facility] ([facility]) empagliflozin 10 MG Oral Tablet [Jardiance] 02/05/2019 12:00:00 AM [facility]) 24 HR metoprolol succinate 50 MG Extended Release Oral Tablet 02/05/2019 12:00:00 AM [facility] ([facility]) Basaglar KwikPen 100UNIT/ML Subcutaneous Solution Pen- injector 01/24/2019 12:00:00 AM [facility] ([facility]) vilazodone hydrochloride 40 MG Oral Tablet [Viibryd] 019 12:00:00 AM [facility]) Lovastatin 20 MG Oral Tablet 09/24/2018 12:00:00 AM [facility]) calcipotriene 0.21824 MG/MG Topical Ointment [Calcitre ne] 06/28/2018 12:00:00 AM [facility] ([facility]) Clobetasol Propionate 0.0005 MG/MG Topical Ointment 04/02/20 12:00:00 AM [facility] BD Pen Needle Isabel U/F 32G X 4 MM MISC 03/30/2016 12:00:00 AM [facility] ([facility])
[2020-09-03] MEDS ORDERED: BUPIVACAINE LIPOSOME/PF 1.3% 20ML VIAL (13.3MG/ML)(EXPAREL)(C9290 PER1MG) As Ordered ONE ×2 (13:18→14:28)
[2020-09-03] MEDS ORDERED: MIDAZOLAM INJ 2MG/2ML VIAL (J2250 PER 1MG) As Ordered ONE (14:01)
[2020-09-03] MEDS ORDERED: MIDAZOLAM INJ 2MG/2ML VIAL (J2250 PER 1MG) IV ONE ×3 (14:15→14:29)
[2020-09-03] MEDS ORDERED: NS 1,000 ML IV ONE (15:15)
[2020-09-03 15:30] VITALS: BP 103/58
--- NOTE | 2020-09-03 16:28 | RO ---
OPERATIVE NOTE DATE OF OPERATION: 09/03/2020 PREOPERATIVE DIAGNOSIS: Retained PleurX catheter. POSTOPERATIVE DIAGNOSIS: Retained PleurX catheter. PROCEDURE: Removal of PleurX catheter with moderate sedation. SURGEON: Dr. Alfonso Tran DESCRIPTION OF PROCEDURE: Under satisfactory moderate sedation achieved with 3 mg of Versed, patient was prepped and draped in the usual sterile fashion. Wound was infiltrated with Exparel. The incision was made over the collar and carried down through subcutaneous tissue. Collar was then dissected from the overlying adherent tissue. The catheter was more adherent than usual. Nonetheless, the dissection was continued sharply until the catheter was freed and then pulled out. The wound was then closed with running 3-0 Vicryl subcutaneous suture followed by 4-0 subcuticular suture. Patient tolerated the procedure well and left operating room in satisfactory condition to the recovery room.
== END 2020-09-03 15:33 | disposition home or self-care (01) ==
LOC: M OPP 12:38
PROVIDERS: ATTEND Thoracic Surgery (Cardiothoracic Vascular Surgery)
DX: R91.8 Other nonspecific abnormal finding of lung field (principal); Z76.89 Persons encountering health services in other specified circumstances
CPT/HCPCS: 32552; C9290; J0690; J2250

== ENCOUNTER 2020-09-10 11:44 | Emergency (ER) | payer OTHER ==
[~2020-09-10] VITALS: Ht 152.4 cm; Wt 78.2 kg
[2020-09-10 11:48] VITALS: BP 113/61
--- NOTE | 2020-09-10 13:15 | REP ---
INDICATION: pain and swelling, r/o clot COMPARISON: None. TECHNIQUE: Ellis scale and color Doppler evaluation left lower extremity using linear high frequency transducer. FINDINGS: ultrasound examination of the left lower extremity deep venous structures from the common femoral vein to the popliteal vein demonstrates normal compressibility flow and wave patterns in response to respiration and augmentation. There is no evidence for deep venous thrombosis. Subcutaneous edema noted. IMPRESSION: No evidence for deep venous thrombosis. <Electronically signed by Tomi Tejeda > 09/10/20 [id number]
== END 2020-09-10 13:40 | disposition home or self-care (01) ==
LOC: M ED 11:44
DX: R22.42 Localized swelling, mass and lump, left lower limb (principal); E11.9 Type 2 diabetes mellitus without complications; I10 Essential (primary) hypertension; C34.90 Malignant neoplasm of unspecified part of unspecified bronchus or lung; Z92.3 Personal history of irradiation; Z95.9 Presence of cardiac and vascular implant and graft, unspecified; Z86.711 Personal history of pulmonary embolism; D86.9 Sarcoidosis, unspecified; Z79.4 Long term (current) use of insulin; Z79.899 Other long term (current) drug therapy; Z88.1 Allergy status to other antibiotic agents; Z88.8 Allergy status to other drugs, medicaments and biological substances

== ENCOUNTER → 2020-09-10 | Outpatient (CLI) | payer OTHER ==
[~2020-09-10] MED LIST changes: -MUPIROCIN 2% OINT 22 GM TUBE TOP ONE; -ceFAZolin SOD 2 GM in IV 1 EA IV ONE
--- NOTE | 2020-09-10 10:58 | REPPI ---
INDICATION: MALIGNANT NEOPLASM OF UPPER LOBE LEFT AND RIGHT COMPARISON: 08/17/2020 TECHNIQUE: PA and lateral. FINDINGS: Bilateral lower lobe pleuroparenchymal changes (right greater than left) including presumed areas of consolidation and moderate to large pleural effusions again noted and similar to prior examination. Visualized portions of the mediastinum and cardiac silhouette are stable. Mediastinal adenopathy cannot be excluded. No pneumothorax. [id number] with tip in the SVC again noted. IMPRESSION: Bilateral pleuroparenchymal changes (right greater than left) similar to prior examination. <Electronically signed by Tomi Tejeda > 09/10/20 [id number]
== END ==
LOC: M PLAIMG 10:29
PROVIDERS: ATTEND Thoracic Surgery (Cardiothoracic Vascular Surgery)
DX: C34.11 Malignant neoplasm of upper lobe, right bronchus or lung (principal); C34.12 Malignant neoplasm of upper lobe, left bronchus or lung

== ENCOUNTER → 2020-09-17 | Outpatient (CLI) | payer OTHER ==
[~2020-09-17] MED LIST changes: +ELIQ2.5T PO; +ISOVUE-370 76% 100ML VIAL As Ordered ONE; +PROC10TA4 PO; +SPIR-10 PO
--- NOTE | 2020-09-17 13:41 | REP ---
INDICATION: MASS OF PELVIS, LT LEG SWELLING. COMPARISON: None. TECHNIQUE: Axial contrast-enhanced images of the pelvis with coronal and sagittal reformations. 100 cc Isovue 370 intravenous contrast material and oral contrast material was administered without complication. FINDINGS: Marked ascites noted within the visualized pelvis along with significant subcutaneous edema. No obvious focal mass lesion is appreciated. Visualized portions of the small and large bowel are grossly unremarkable. Colonic and sigmoid diverticulosis noted without obvious acute diverticulitis. Bladder is collapsed. Evidence for prior hysterectomy noted. Abdominal aorta and vasculature without aneurysm. Skeletal structures demonstrate degenerative changes along with few sclerotic foci suspicious for underlying metastatic disease. There is chronic L5 spondylolysis without significant spondylolisthesis. IMPRESSION: 1. Marked ascites in the visualized pelvis along with significant subcutaneous edema/anasarca. 2. No pelvic mass lesion appreciated. 3. Sclerotic foci within the osseous structures suspicious for possible metastatic disease. <Electronically signed by Tomi Tejeda > 09/17/20 [id number]
== END ==
LOC: M RAD 12:26
PROVIDERS: ATTEND Specialist
DX: R22.42 Localized swelling, mass and lump, left lower limb (principal); R18.8 Other ascites; C34.90 Malignant neoplasm of unspecified part of unspecified bronchus or lung
CPT/HCPCS: 72193; Q9967

== ENCOUNTER 2020-09-27 08:18 | Inpatient (IN) | payer OTHER, MEDICARE ==
[~2020-09-27] VITALS: Ht 152.4 cm; Wt 83.5 kg
[~2020-09-27 08:18] MED LIST changes: -ISOVUE-370 76% 100ML VIAL As Ordered ONE
[2020-09-27 09:50] VITALS: BP 121/61
[2020-09-27] MEDS ORDERED: DEXTROSE 50% 50 ML SYRINGE IV PRN (10:45)
[2020-09-27] MEDS ORDERED: GLUCOSE 4GM CHEW TABLET PO PRN (10:45)
[2020-09-27] MEDS ORDERED: GLUCAGON INJ 1MG VIAL SC PRN (10:45)
[2020-09-27] MEDS ORDERED: CEFTAROLINE FOSAMIL 400 MG in D5W MINI-BAG PLUS 50 ML IV SCH (10:50)
[2020-09-27] MEDS ORDERED: **NOTE PATIENT COMMENT** MISC XX SCH (10:50)
--- NOTE | 2020-09-27 11:50 | REP ---
INDICATION: pleural effusion. COMPARISON: Chest CT dated 08/17/2020 and PA and lateral chest dated 09/10/2020 TECHNIQUE: Chest CT without IV contrast. FINDINGS: The right chest tube is been removed. The right IJ Exhejr-C-Kbqj catheter is unchanged. There is a small right pleural effusion, not significantly changed. There is a moderate left pleural effusion, also unchanged. There is a spiculated right hilar mass is previously there appears to be postobstructive pneumonitis peripheral to this mass in the right upper lobe, right middle lobe and right lower lobe. This appears unchanged. Posteriorly in the lingula on the left just anterior to the major fissure there is a 7 mm lung nodule. This measured 5 mm previously. Additionally there is parenchymal density in the lung extending superiorly and inferiorly from this nodule as an interval change, possibly postobstructive pneumonitis. There is stranding extending from the left hilus toward this nodule as previously. There is mediastinal adenopathy, unchanged. There is abdominal ascites as previously. The spleen appears enlarged measuring up to 15 cm AP. This appears unchanged. There is no adrenal mass. The hepatic margin has a nodular appearance suggestive of cirrhosis requiring clinical correlation. IMPRESSION: The right chest tube is been removed. The right IJ Rmqdfa-G-Monv catheter is unchanged. The small right pleural effusion is unchanged. The moderate left pleural effusion is unchanged. The abdominal ascites is unchanged. The spiculated right hilar mass is unchanged. The postobstructive pneumonitis/interstitial tumor spread the right is unchanged. The left lung nodule is increased in size today measuring 7 mm (5 mm previously). There is density in the left l lung extending cephalad had and caudad from this nodule, possibly postobstructive pneumonitis, as a change. Splenomegaly. Nodular appearing hepatic margins suggestive of cirrhosis. <Electronically signed by Freeman Mccord > 09/27/20 [id number]
[2020-09-27 11:52] LABS: HEMATOCRIT 37.7 % (36.0-47.0); HEMOGLOBIN 11.3 g/dl (12.0-15.5); MEAN CORPUSCULAR HEMOGLOBIN 28.2 pg (27.0-33.0); PLATELET COUNT, AUTOMATED 172 10^3/uL (150-450); RED BLOOD COUNT 4.01 10^6/uL (4.00-5.40); WHITE BLOOD COUNT 5.9 10^3/uL (4.0-10.0)
[2020-09-27 12:00] VITALS: BP 128/56
[2020-09-27] MEDS: HumaLOG INSULIN (NovoLOG) PER UNIT SC SCH ×3 (12:00→21:00)
[2020-09-27 12:01] LABS: INR 1.8; PROTHROMBIN TIME 21.3 SECONDS (12.5-14.3)
[2020-09-27 12:02] LABS: PARTIAL THROMBOPLASTIN TIME 35.8 SECONDS (24.2-38.5)
[2020-09-27] MEDS ORDERED: TOPR25TA PO (12:07)
[2020-09-27] MEDS ORDERED: FERR324T2 PO (12:07)
[2020-09-27] MEDS ORDERED: LEVA1.2519 NEB (12:07)
[2020-09-27] MEDS ORDERED: CULT10CA4 PO (12:07)
[2020-09-27] MEDS ORDERED: ELIQ5TAB PO (12:07)
[2020-09-27] MEDS ORDERED: SPIR-10 PO (12:07)
[2020-09-27] MEDS ORDERED: LOPE2CAP PO (12:07)
[2020-09-27] MEDS: LACTOBACILLUS ACIDOPHILUS CAP (BACID) PO SCH ×2 (12:18→18:04)
[2020-09-27 12:19] LABS: ALBUMIN 2.4 GM/DL (3.2-5.2); ALT/SGPT < 6 U/L (12-78); BLOOD UREA NITROGEN 18 MG/DL (7-18); CALCIUM LEVEL 8.3 MG/DL (8.8-10.2); CARBON DIOXIDE LEVEL 31 MEQ/L (21-32); CHLORIDE LEVEL 102 MEQ/L (98-107); CREATININE FOR GFR 0.82 MG/DL (0.55-1.30); GLOMERULAR FILTRATION RATE > 60.0 (>45); GLUCOSE, FASTING 123 MG/DL (70-100); POTASSIUM SERUM 3.3 MEQ/L (3.5-5.1); SODIUM LEVEL 140 MEQ/L (136-145); TOTAL PROTEIN 5.2 GM/DL (6.4-8.2)
[2020-09-27] MEDS ORDERED: CALCIPOTRIENE 0.005% TOP PRN (12:20)
[2020-09-27] MEDS: IPRATROPIUM 0.5MG/ALBUTEROL 2.5MG INH SOL UD 3ML (DUONEB) NEB SCH ×2 (12:25→20:57)
[2020-09-27] MEDS: CEFTAROLINE FOSAMIL 600 MG in D5W MINI-BAG PLUS 50 ML IV SCH (14:44)
[2020-09-27 16:00] VITALS: BP 104/58
[2020-09-27 18:48] LABS: NT-PRO BNP 1972 PG/ML (<125)
[2020-09-27 20:00] VITALS: BP 109/56
[2020-09-27] MEDS: POTASSIUM CHLORIDE 10 MEQ SR TABLET PO SCH (21:41)
[2020-09-27] MEDS: FUROSEMIDE 100MG/10ML VIAL (J1940) IV SCH (21:41)
[2020-09-27 21:50] VITALS: BP 116/63
[2020-09-28] VITALS (10 sets, daily range): BP systolic 88–125; BP diastolic 51–65
[2020-09-28] MEDS: IPRATROPIUM 0.5MG/ALBUTEROL 2.5MG INH SOL UD 3ML (DUONEB) NEB SCH ×4 (01:30→18:26)
[2020-09-28] MEDS: CEFTAROLINE FOSAMIL 600 MG in D5W MINI-BAG PLUS 50 ML IV SCH ×2 (03:14→13:48)
[2020-09-28 06:11] LABS: HEMATOCRIT 33.5 % (36.0-47.0); HEMOGLOBIN 10.1 g/dl (12.0-15.5); MEAN CORPUSCULAR HEMOGLOBIN 28.3 pg (27.0-33.0); MEAN CORPUSCULAR HGB CONC 30.1 g/dl (32.0-36.5); MEAN CORPUSCULAR VOLUME 93.8 fl (80.0-96.0); PLATELET COUNT, AUTOMATED 164 10^3/uL (150-450); RED BLOOD COUNT 3.57 10^6/uL (4.00-5.40); WHITE BLOOD COUNT 4.8 10^3/uL (4.0-10.0)
[2020-09-28] MEDS: SODIUM CHLORIDE 0.9% INJ 10 ML SYR IV PRN ×3 (06:16→16:22)
[2020-09-28 06:33] LABS: CALCIUM LEVEL 8.1 MG/DL (8.8-10.2); GLOMERULAR FILTRATION RATE 58.9 (>45); POTASSIUM SERUM 3.4 MEQ/L (3.5-5.1)
[2020-09-28] MEDS: FUROSEMIDE 100MG/10ML VIAL (J1940) IV SCH ×3 (08:43→21:22)
[2020-09-28] MEDS: HumaLOG INSULIN (NovoLOG) PER UNIT SC SCH ×4 (08:43→20:57)
[2020-09-28] MEDS: VILAZODONE 40 MG PO SCH (08:44)
[2020-09-28] MEDS: LACTOBACILLUS ACIDOPHILUS CAP (BACID) PO SCH ×3 (08:44→17:34)
[2020-09-28] MEDS: PANTOPRAZOLE 40MG TAB (PROTONIX) PO SCH (08:44)
[2020-09-28] MEDS: SPIRONOLACTONE 12.5MG PER 1/2 TABLET PO SCH (08:44)
[2020-09-28] MEDS: METOPROLOL SUCC *XL* 25MG TAB (TopROL *XL*) PO SCH (08:44)
[2020-09-28] MEDS: POTASSIUM CHLORIDE 10 MEQ SR TABLET PO SCH ×2 (08:44→21:21)
[2020-09-28] MEDS: SODIUM CHLORIDE 0.9% INJ 10 ML SYR IV SCH (08:45)
--- NOTE | 2020-09-28 10:26 | IPN ---
PROGRESS NOTE DATE: 09/28/2020 SUBJECTIVE: Mercedes is seen in the PCU. She is awaiting her paracentesis today. She gets these periodically, most recently 08/31/2020 and previous to that 08/05/2020. She actually was transferred here from [facility] for thoracentesis but neither Dr. Tran nor Dr. Terrell feels that she warrants that. She has lung cancer and has a postobstructive pneumonia. She also has cellulitis of the left lower leg and we are treating both of these with Ceftaroline. She denies any fever or chills. She is chronically short of breath. Her leg feels like it is less swollen, she can move her toes better and less discomfort. OBJECTIVE: VITAL SIGNS: Afebrile, blood pressure is 114/65, O2 saturation 99% on 2 liters. GENERAL APPEARANCE: She is alert and conversant, in no distress. HEENT: Unremarkable. LUNGS: Decreased breath sounds in the left base and rhonchi in the right side. HEART: Regular rate and rhythm. No murmur. ABDOMEN: Soft, nontender, distended. Ascites is present. EXTREMITIES: Trace peripheral edema. There is extensive psoriasis with confluent plaques and silvery scales. There is erythema surrounding some psoriatic plaques particularly in the left lower extremity. It is better than yesterday. LABORATORY DATA: White count 4.8, hemoglobin 10.1, platelets 164,000, sodium 139, potassium 3.7, BUN 18, creatinine is 1.0, glucose is 135. BNP was 1972. IMPRESSION: 1. Cellulitis of left lower extremity, she is on Ceftaroline, seems to be responding to this. 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 2. Postobstructive pneumonia. She has lung cancer right side, there is a postobstructive pattern on CT scan. Dr. Terrell and I discussed the case, she will see her in consultation. Continue Ceftaroline which should be appropriate coverage for hospital associated pneumonia, unlikely this is due to atypical organisms so I have not provided azithromycin, doxycycline, etc. 3. Ascites secondary to cirrhosis. She is getting a paracentesis today. Appropriate studies have been ordered. Will give her some albumin afterwards. I have also added furosemide intravenously trying to get a good diuresis going. She also is on spironolactone. We just started the diuretic yesterday so I do not see where she had much diuresis yet, the dose might need to be adjusted. 4. History of depression, continue her Viibryd 40 mg daily.
[2020-09-28 10:57] LABS: APPEARANCE, BODY FLUID HAZY (CLEAR); PERITONEAL FL COLOR YELLOW (COLORLESS); SOURCE, BODY FLUID PERITONEAL
--- NOTE | 2020-09-28 11:13 | REP ---
INDICATION: ascites. Evaluation for possible paracentesis. COMPARISON: None. TECHNIQUE: Four quadrant abdominal ascites survey scan. FINDINGS: Four quadrant scanning through the abdomen confirms the presence of ascites. Paracentesis will proceed. IMPRESSION: Moderate abdominal ascites. <Electronically signed by Shorty Okeefe > 09/28/20 1101
[2020-09-28 11:59] LABS: SOURCE, BODY FLUID ALBUMIN PERITONEAL; SOURCE, BODY FLUID GLUCOSE PERITONEAL; SOURCE, BODY FLUID TOT PROTEIN PERITONEAL; TOTAL PROTEIN, BODY FLUID 0.9 G/DL (NOT ESTABLISHED)
--- NOTE | 2020-09-28 12:52 | CR ---
CONSULTATION DATE: 09/28/2020 REASON FOR CONSULTATION: Pleural effusion. HISTORY OF PRESENT ILLNESS: The patient is a 65-year-old female who is transferred from [place] on 09/27/2020 for worsening pleural effusions. She was admitted to [facility] on 09/23 for a cellulitis and hypokalemia and initially treated with Ancef. After 24 hours on Ancef, she developed worsening tachycardia and was given a 1 liter normal saline bolus and was started on Vancomycin and Zosyn without a worsening white blood cell count and with an elevated lactic acid. Troponins were negative. D-Dimer was negative. A CT scan was done that showed mild to moderate left sided pleural effusions and mild right sided pleural effusions with repeat chest x-rays done daily. She was eventually then admitted to ARU at [facility] for difficulty walking. However, her daily chest x-rays continued to show worsening pleural effusions so on 09/27, the decision was made to transfer the patient to [facility] for further evaluation. Dr. Tran and Dr. Terrell were consulted on 09/27/2020, however, neither felt at the time that her imaging warranted thoracentesis so she was diuresed overnight. Today, she states that she is feeling a little bit better and she can actually move her toes where before she could not because there was too much edema. She feels her psoriasis has not been well-controlled but she is not especially short of breath at the moment. She has not had any fevers. 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 Currently on Keytruda. Diabetes, hypertension, hyperlipidemia, psoriasis, GERD, history of SVT, history of PE not on anticoagulation, history of sarcoidosis diagnosed with mediastinoscopy. PAST SURGICAL HISTORY: Hernia surgery, hysterectomy, mediastinoscopy, tendon surgery of the hands. FAMILY HISTORY: Congestive heart failure, COPD and colon cancer. SOCIAL HISTORY: Former smoker, 1/2 pack a day for 20 years, 10 pack year history, quit in 1992. Denies any illicit drug use or alcohol use. 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 No history of asbestos exposure. No dogs or birds. Has one cat at home. No history of travel to [place] [facility]. REVIEW OF SYSTEMS: The patient denies any fevers, chills, night sweats, recent unexpected weight change, no headaches or dizziness, no vision changes, jaundice or double vision. She denies any chest pain, pressure, palpitations, or shortness of breath. Does admit to some wheezing. Denies coughing. No hemoptysis or sputum production. Abdomen: She does admit to some abdominal distention and swelling but denies any pain, nausea, vomiting, or change in her bowel habits. : Denies any hematuria or difficulty urinating. Has a history of a kidney stone n the past. Endocrine: She does have a history of diabetes. No thyroid disease. Neurologic: She has no numbness or tingling, or history of prior seizures. Psychiatric: No current anxieties. No suicidal ideations, homicidal ideations or auditory or visual hallucinations. PHYSICAL EXAMINATION: VITAL SIGNS: T-max overnight of 98.9, heart rate of 119 and regular, respiratory rate of 18, blood pressure is 114/65, saturating 100% on 2 liters nasal cannula. GENERAL APPEARANCE: The patient is a well-developed obese white female in no acute distress sitting upright in bed. HEENT: Head is normocephalic, atraumatic. Eyes: Pupils are equal, round and reactive to light. Extraocular muscles are intact. Sclera nonicteric. Nose without deformity. Mouth shows mucous membranes that are moist. Lip, gums and tongue without any thrush. NECK: Supple. No signs of JVD or subcutaneous emphysema. Trachea is midline. No thyromegaly or lymphadenopathy. LUNGS: Decreased breath sounds bilaterally with end expiratory wheezing. No appreciable crackles or rhonchi on examination. No dullness to percussion. CARDIAC: Tachycardic rate, regular rhythm. Normal S1 and S2. PMI unable to be appreciated. ABDOMEN: Soft, nontender with peeling dry skin that is mildly erythematous throughout. No hepatosplenomegaly. Difficult to appreciate whether there is any sort of fluid shift. EXTREMITIES: 2+ pitting edema up to the level of the presacral area with a large amount of plaques bilaterally consistent with psoriatic disease. Pulses are +2/4 in DP and posterior tibial. SKIN: Warm, dry and perfused. NEUROLOGIC: Cranial nerves II-XII are grossly intact with gross motor sensation intact. Gait was unable to be tested. PSYCHIATRIC: She is awake, alert and oriented x3 with appropriate mood and affect. LABORATORY DATA: CBC showed a white blood cell count of 4.8, hemoglobin 10.1, hematocrit 33.5, platelet count of 164,000, PT 21, PTT 35.8, INR of 1.8. Sodium 139, potassium 3.4, chloride 103, bicarbonate 29, BUN 18, creatinine 1.0. Glucose 135, calcium 8.1. On 09/27, liver profile showing total bilirubin of 1.0, AST 27, ALT less than 6, alkaline phosphatase 228, pro-BNP 1972. Total protein 5.2, albumin is 2.4. Procalcitonin of 0.21. Fluid studies still pending, however, specific gravity of 1.010, fluid white blood cell count of 212, red blood cells less than 2, mononuclear percentage of 95.3, PMN is 4.7. Peritoneal color was yellow and hazy. Gram stain body fluid culture, anaerobic culture are pending, and cytology is pending. IMAGING: Chest CT from 09/27/2020 showing moderate left pleural effusion, a small right pleural effusion with air bronchograms and ground-glass opacities. Abdominal ultrasound on 09/28/2020 showing moderate abdominal ascites overlying suprahepatic area causing mild compression of right hemidiaphragm. ASSESSMENT/PLAN: Ms. Morejon is a 65-year-old female with a history of metastatic adenocarcinoma of the lung, transferred for worsening pleural effusion who is complaining of worsening lower extremity swelling and some possible mild worsening of her shortness of breath. 1. Pleural effusions. At this point, there is no indication for mechanical intervention and I think diuresis would be best. She is scheduled for an abdominal paracentesis which I think is appropriate. We will await the cytology and fluid culture results to determine the cause, however, I suspect this is likely a malignant pleural effusion or possibly an effusion that has become worse due to her liver cirrhosis. We will continue to follow along with this case. Thank you for this consultation.
[2020-09-28] MEDS: NYSTATIN 100,000 UNITS/GM TOPICAL PWD 15 GM TOP SCH ×2 (13:47→21:22)
[2020-09-28 17:00] LABS: BLOOD UREA NITROGEN 21 MG/DL (7-18); CALCIUM LEVEL 8.3 MG/DL (8.8-10.2); CARBON DIOXIDE LEVEL 31 MEQ/L (21-32); CHLORIDE LEVEL 106 MEQ/L (98-107); CREATININE FOR GFR 0.96 MG/DL (0.55-1.30); GLOMERULAR FILTRATION RATE > 60.0 (>45); GLUCOSE, FASTING 176 MG/DL (70-100); POTASSIUM SERUM 3.3 MEQ/L (3.5-5.1); SODIUM LEVEL 142 MEQ/L (136-145)
--- NOTE | 2020-09-28 18:42 | REP ---
INDICATION: ascites. COMPARISON: None. TECHNIQUE: The procedure was performed under the direct supervision of Dr. Ellis. The risks and benefits of the procedure were explained to the patient and informed consent was obtained. The procedure was performed by Dr. Finn under my personal guidance. The largest pocket of fluid was localized in the right flank using ultrasound guidance. The skin was prepped and draped in a sterile fashion. 1% lidocaine was used as a local anesthetic. An 8-Nepali multi side-hole catheter was inserted using trocar technique. 4050 cc yellow fluid was withdrawn with a sample sent to the lab for analysis. The patient tolerated the procedure well and there were no immediate complications. After the appropriate amount of monitored convalescence, the patient was discharged from the department. FINDINGS: None IMPRESSION: Ultrasound-guided paracentesis yielding 4050 cc of yellow fluid with a sample sent to the lab for analysis <Electronically signed by Dominic Simon > 09/28/20 [id number] <Electronically signed by Freeman Ellis > 09/28/20 [id number]
--- NOTE | 2020-09-28 21:48 | CR ---
PULMONARY CONSULTATION DATE: 09/28/2020 CHIEF COMPLAINT: Pleural effusion HISTORY OF PRESENT ILLNESS: Ms. 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 At the outside hospital, patient was initially treated with Ancef for broad spectrum antibiotic. She had developed worsening tachycardia and was given intravenous (IV) fluid boluses and placed on vancomycin and Zosyn. She had a CT done at that time, which did show mild to moderate left pleural effusion and a mild right-sided pleural effusion initially. She was continued with IV antibiotics, but her chest x-ray showed worsening pleural effusion and so was transferred to [facility] for further evaluation. Patient does have a prior history of cirrhosis in the past as well with ascites and has had previous paracentesis drainage. The patient reports that her leg swelling is still very significant. She was started on Lasix on admission, but has minimal urine output. She is on spironolactone as well as furosemide as an outpatient, but reported having minimal urine output despite being compliant with her diuretics as an outpatient. Patient had denied any fevers or chills. She also denied any significant coughing or mucous production. She was, as stated, having shortness of breath as well as wheezing. At the time of examination, patient had just returned from ultrasound, where she had an ultrasound-guided paracentesis with removal of approximately 4 liters of fluid. Post fluid removal, she had noted improvement in her dyspnea as well as in the wheeze. She has not had any fevers here. She denies any chills currently. She has not had any abdominal pain, nausea or vomiting. She does have extensive plaque psoriasis, which has been poorly well-controlled, although she is using topical creams currently. It is fairly extensive throughout her body. PAST MEDICAL HISTORY/SURGICAL HISTORY: 1. Sarcoidosis, in remission. 2. Hypertension. 3. Insulin-dependent diabetes. 4. Prior history of pulmonary embolism (PE), questionably provoked, off anticoagulation. 5. Gastroesophageal reflux disease (GERD). 6. Psoriasis. 7. Metastatic adenocarcinoma of the right lung with metastasis to the pleura and pericardium. 8. History of malignant pleural effusion status post PleurX placement and subsequent removal, questionable peritoneal implants 9. History of malignant pericardial effusion status post pericardial window. 10. Cirrhosis with portal hypertension. 11. Hysterectomy. 12. Hernia repair. 13. [id number] placement. FAMILY HISTORY: Mother with history of congestive heart failure (CHF). Father with history of chronic obstructive pulmonary disease (COPD) and son with colon cancer. SOCIAL HISTORY: Patient is a former smoker, has an approximately 30 pack year history, quit 30 years ago. No other illicit drug or alcohol use. HOME MEDICATIONS: - enalapril - fluconazole - furosemide - Jardiance - Keytruda - albuterol - Lovastatin - metoprolol - oxycodone/acetaminophen - Ozempic - pantoprazole - spironolactone - Viibryd - Xopenex as needed ALLERGIES: AZITHROMYCIN, CITALOPRAM, ERYTHROMYCIN, METFORMIN, MIRTAZAPINE, PRAVASTATIN. PHYSICAL EXAMINATION: VITAL SIGNS: Temperature 97.9, pulse 119, respirations 18, blood pressure 111/61, oxygen saturation 99% on 2 liters nasal cannula. INTAKE AND OUTPUT: In 720 mL, out 200 mL. GENERAL: Patient is an obese female, sitting in bed and at rest does not appear to be in any acute respiratory distress. She is mildly tachypneic with exertion, but able to speak in complete sentences. HEENT: Normocephalic, atraumatic. Pupils are reactive to light bilaterally. Moist mucous membranes. Mallampati 3. NECK: Supple. Trachea is midline. No palpable cervical adenopathy. CARDIAC: Tachycardic. Regular rate and rhythm. Normal S1, S2. Unable to clearly appreciate murmurs. LUNGS: There are diminished breath sounds at the bases bilaterally with occasional coarse breath sounds, more on the right and mild crackles at the bases, right more than left. ABDOMEN: Obese. Soft, nontender to palpation. There is a somewhat firm subcutaneous area in the left lower quadrant. EXTREMITIES: There is 2+ to 3+ pitting edema in the bilateral lower extremities up to the thigh and sacral area with diffuse anasarca. There are large areas of plaque psoriasis which appear to be more confluent reaching onto the groin, inner thigh and buttock area, as well as on her back. LABORATORY DATA: WBC 4.8, hemoglobin 10.1, platelets 164. Chemistry: Sodium 139, potassium 3.4, chloride 103, bicarbonate 29, BUN 18, creatinine 1.0, glucose 135, calcium 8.1. Albumin 2.4. Procalcitonin 0.21. BNP 1972. Pleural fluid study showed WBC 212 with mononuclear predominance at 95.3%, glucose 172, total protein 0.9, albumin 0.5. IMAGING DATA: CT of the chest performed 09/27/2020 is compared to a prior CT from 08/17/2020. Compared to the prior CT, the left pleural effusion appears larger in size. There is a right hilar mass noted with some postobstructive changes in the right upper lobe, right middle lobe and right lower lobe. There does appear to be more ground-glass opacities noted in the right upper lobe compared to the previous CT and there are also some increased areas of consolidation in the right lower lobe with more air bronchograms. There is a small right pleural effusion, which is unchanged from the prior CT. There are other nodular opacities in the lungs on the left side with some stranding extending from the left hilar area toward the nodule which is relatively unchanged. There is mediastinal adenopathy noted. There is abdominal ascites and the liver is suggestive of cirrhosis. IMPRESSION: Ms. Morejon is a 65-year-old female with a past medical history of metastatic adenocarcinoma of the lung to the pleura and pericardium, history of insulin-dependent diabetes, prior pulmonary embolism (PE) not on anticoagulation, extensive psoriasis, history of cirrhosis with pleural hypertension and ascites with questionable history of peritoneal implants who presented to an outside hospital with complaints of worsening lower extremity edema and dyspnea. Patient was initially treated with possible cellulitis with Ancef for two days and then an additional two days with IV vancomycin and Zosyn. She was also given IV fluids for her tachycardia, although she does have a chronic history of tachycardia in the past. She also has a prior history of paracentesis. It appears the last paracentesis was perhaps sometime in July, although patient herself does not recall when her last procedure was. She is on diuretics as a home medication but does report, prior to her presentation, having decreased urination despite being on her diuretics. On her initial CT of the chest, the radiologist had stated the effusions were unchanged. The right pleural effusion is unchanged and this is the side that previously had a PleurX catheter placed and she does have likely a degree of lung entrapment and so will have chronic right-sided pleural effusion related to that and that effusion on the right does not appear changed. However, her pleural effusion on the left does appear larger compared to a CT of the chest from August. She does also have extensive ascites and suspect her worsening left pleural effusion is due to generalized fluid overload with her severe anasarca and pitting edema, as well as a possibility of hepatic hydrothorax, given her ascites. Patient was given Lasix IV upon admission, but had minimal urine output. She did have her paracentesis performed earlier in the morning and had 4 liters removed and has already symptomatic improvement in her shortness of breath and also her wheezing that she was previously noting. 1. Decompensated cirrhosis versus right-sided heart failure. She does have imaging findings suggestive of cirrhosis with portal hypertension and ascites, although unclear etiology for her cirrhosis as she denies a prior history of alcohol abuse. The patient's last echocardiogram also showed evidence of pulmonary hypertension, so there is a possibility as well of some right-sided heart failure component. Patient also has questionable peritoneal implants so there is also a possibility of malignant ascites contributing. - Patient is status post large volume paracentesis. Will order albumin at 25 grams every 8 hours times three doses today, as she also does have hypoalbuminemia, which is contributing to some of her third spacing and anasarca. - Will continue with IV diuretics as per primary team. She is on Lasix 60 mg every 8 hours currently. She is also on Aldactone 12.5 mg by mouth daily with the possibility of cirrhosis. would consider increasing spironolactone, particularly given her hypokalemia as well. - She is getting potassium chloride 40 mEq by mouth twice a day. Will need to closely monitor her electrolytes, however, and replete her potassium and magnesium accordingly, particularly given the diuretics. She is mildly hypokalemic currently. - Patient clinically does not require thoracentesis or chest tube placement, particularly as her worsening left pleural effusion is likely due to overall fluid overload and she has not been given an adequate trial of diuresis yet. - Will continue to monitor her intake and output and renal function. - Patient is on nasal cannula oxygen supplementation at 2-3 liters/minute, which is her baseline. 2. Possible cellulitis. Patient is on ceftaroline currently. She received four days of antibiotics and she does not have leukocytosis currently. The findings on examination appear to be more consistent with her plaque psoriasis. She is on ointment, which she is using currently, but we will give her additional moisturizing cream for it. She does also have evidence of fungal skin infection in her intertriginous folds, particularly underneath her breasts and abdominal pannus and groin, so we will order additional Nystatin powder. 3. Questionable postobstructive pneumonia or pneumonitis changes. Patient's CT of the chest does show some increased ground-glass opacity on the right as well as some increased consolidation and air bronchograms in the right lower lobe. Some of this may potentially be due to radiation changes versus possible postobstructive pneumonia. She denies any significant cough history and has not had any fevers or chills and no leukocytosis. Procalcitonin is not significantly elevated, so I would consider more rapid de-escalation of antibiotics. Given her history of ascites, there would be concern for a possible spontaneous bacterial peritonitis (SBP). Her fluid is not consistent, however, but could consider SBP prophylaxis. Deep venous thrombosis (DVT) prophylaxis. Heparin. CODE STATUS: DO NOT RESUSCITATE (DNR)/DO NOT INTUBATE. MTDD
[2020-09-29] VITALS (7 sets, daily range): BP systolic 98–114; BP diastolic 52–58
[2020-09-29] MEDS: IPRATROPIUM 0.5MG/ALBUTEROL 2.5MG INH SOL UD 3ML (DUONEB) NEB SCH ×4 (01:41→20:46)
[2020-09-29] MEDS: CEFTAROLINE FOSAMIL 600 MG in D5W MINI-BAG PLUS 50 ML IV SCH (02:25)
[2020-09-29] MEDS: FUROSEMIDE 100MG/10ML VIAL (J1940) IV SCH ×3 (04:08→20:45)
[2020-09-29] MEDS: SODIUM CHLORIDE 0.9% INJ 10 ML SYR IV PRN (04:29)
[2020-09-29 05:00] LABS: HEMATOCRIT 31.4 % (36.0-47.0); HEMOGLOBIN 9.3 g/dl (12.0-15.5); MEAN CORPUSCULAR HGB CONC 29.6 g/dl (32.0-36.5); MEAN CORPUSCULAR VOLUME 94.6 fl (80.0-96.0); PLATELET COUNT, AUTOMATED 108 10^3/uL (150-450); RED BLOOD COUNT 3.32 10^6/uL (4.00-5.40); WHITE BLOOD COUNT 2.7 10^3/uL (4.0-10.0)
[2020-09-29 05:12] LABS: BLOOD UREA NITROGEN 20 MG/DL (7-18); CARBON DIOXIDE LEVEL 30 MEQ/L (21-32); CHLORIDE LEVEL 107 MEQ/L (98-107); CREATININE FOR GFR 0.92 MG/DL (0.55-1.30); GLOMERULAR FILTRATION RATE > 60.0 (>45); GLUCOSE, FASTING 132 MG/DL (70-100); POTASSIUM SERUM 3.6 MEQ/L (3.5-5.1); SODIUM LEVEL 142 MEQ/L (136-145)
[2020-09-29] MEDS: METOPROLOL SUCC *XL* 25MG TAB (TopROL *XL*) PO SCH (09:00)
[2020-09-29] MEDS ORDERED: metOLazone 2.5 MG TAB PO ONE ×2 (09:40→20:00)
[2020-09-29] MEDS: HumaLOG INSULIN (NovoLOG) PER UNIT SC SCH ×4 (09:54→20:51)
[2020-09-29] MEDS: LACTOBACILLUS ACIDOPHILUS CAP (BACID) PO SCH ×3 (09:55→17:59)
[2020-09-29] MEDS: SPIRONOLACTONE 12.5MG PER 1/2 TABLET PO SCH (09:55)
[2020-09-29] MEDS: POTASSIUM CHLORIDE 10 MEQ SR TABLET PO SCH ×2 (09:56→20:45)
[2020-09-29] MEDS: PANTOPRAZOLE 40MG TAB (PROTONIX) PO SCH (09:56)
[2020-09-29] MEDS: NYSTATIN 100,000 UNITS/GM TOPICAL PWD 15 GM TOP SCH ×2 (09:57→20:47)
[2020-09-29] MEDS: VILAZODONE 40 MG PO SCH (09:57)
[2020-09-29 10:52] LABS: ALBUMIN 2.9 GM/DL (3.2-5.2)
[2020-09-29 11:49] LABS: CLOSTRIDIUM DIFFICILE PCR NEGATIVE (NEGATIVE)
[2020-09-29] MEDS: AUGMENTIN 875 MG TAB PO SCH ×2 (11:50→20:44)
[2020-09-29] MEDS: SODIUM CHLORIDE 0.9% INJ 10 ML SYR IV SCH (11:51)
--- NOTE | 2020-09-29 11:53 | IPNPDOC ---
Text Note Date of Service The patient was seen on 09/29/20. NOTE Subjective: Patient is a 65-year-old female transferred from [place] after she was noted to have worsening pleural effusions. Patient initially presented fair at 09/23 for lower extremity redness reported to be cellulitis.. She was started on broad-spectrum antibiotics and IV fluid hydration. She was transitioned to [facility] for further evaluation and treatment of her pleural effusions. Pulmonology and cardiothoracic surgery were called on consultation. Patient was seen and examined at the bedside. Currently patient reports that she feels relatively fine. Reports that her legs are still swollen. Denies any nausea, vomiting, abdominal pain, constipation. Patient reports that she does experience some diarrhea, however, has continued to experience this ever since she has started a true patient report that she intermittently takes Imodium to help alleviate the diarrhea. I discussed with her consideration for placing a Cosby catheter. However, she does not want to proceed with this at this time. Objective: Vitals (See below) General: Lying in bed, appears comfortable, AAOx3 HEENT: NC, AT CVS: +S1S2 Lungs: Fair air entry b/l, diminished lung sounds at right lung base. No evidence of crackles or rhonchi; mild wheezing appreciated bilaterally Abdomen: Soft, ND, NT Extremities: 2+ pitting edema bilaterally, - Calf tenderness Skin: Plaques arises noted bilaterally on her lower extremities Imaging: CT Chest 09/27: The right chest tube is been removed. The right IJ [id number] catheter is unchanged. The small right pleural effusion is unchanged. The moderate left pleural effusion is unchanged. The abdominal ascites is unchanged. The spiculated right hilar mass is unchanged. The postobstructive pneumonitis/interstitial tumor spread the right is unchanged. The left lung nodule is increased in size today measuring 7 mm (5 mm previously). There is density in the left l lung extending cephalad had and caudad from this nodule, possibly postobstructive pneumonitis, as a change. Splenomegaly. Nodular appearing hepatic margins suggestive of cirrhosis. Liver US 09/28: Moderate abdominal ascites. Paracentesis 09/28: Ultrasound-guided paracentesis yielding 4050 cc of yellow fluid with a sample se nt to the lab for analysis Assessment and plan: Reported cellulitis / Plaque psoriasis of lower extremities - Currently patient is hemodynamically stable and afebrile - No leukocytosis - Will discontinue Ceftaroline; Will start Augmentin Post-obstructive PNA - History of Lung CA on right - Imaging reviewed - Will start Augmentin for completion of antibiotic course - Pulmonology on consultation Ascites - likely 2/2 cirrhosis - Patient is not in negative fluid balance at this time - s/p paracentesis and removal of 4 L of fluid (09/28) - Imaging reviewed above; nodularity of liver noted - Will check ECHO - c/w Albumin infusion / Furosemide / Spironolactone - Will start Metolazone x 1 dose today Metastatic Adenocarcinoma - Currently patient is on Keytruda - Will have outpatient follow-up with oncology Diarrhea - possibly 2/2 Keytruda - Will check stool for C. diff - If negative; will start Imodium - c/w Bacid HTN - BP well controlled - c/w Metoprolol DM2 - c/w ISS Depression - c/w own medications; Viibryd GERD - c/w Protonix DVT prophylaxis - Will start Heparin Disposition: - Awaiting clinical improvement VSGaudencio I+O VSGaudencio I+O Laboratory Tests 09/28/20 16:21 09/29/20 04:38 Vital Signs Date Time Temp Pulse Resp B/P (MAP) Pulse Ox O2 Delivery O2 Flow Rate FiO2 09/29/20 10:15 98.4 119 22 99/52 (68) 100 Nasal Cannula 2.0 I&O- Last 24 Hours up to 6 AM 09/29/20 05:59 Intake Total 1940.0 ml Output Total 1325 ml Balance 615.0 ml REILLY LIEBERMAN MD Sep 29, 2020 11:53
--- NOTE | 2020-09-29 12:58 | IPN ---
THORACIC SURGERY PROGRESS NOTE DATE: 09/29/2020 SUBJECTIVE: Ms. Morejon is seen in a chair at bedside this morning and states she is doing quite well. She feels like she had a little bit of shortness of breath earlier in the morning, but after a breathing treatment this dramatically improved. Otherwise, she feels like her psoriasis in her lower extremities is doing better and her lower extremity swelling is improved as well. Otherwise, no acute events overnight. She currently denies any fever, chills, chest pain, current shortness of breath. She does have a cough productive of some yellow sputum. Denies any abdominal pain, nausea, vomiting, change in bowel movements. Admits to ongoing lower extremity swelling and ongoing rashes, as previously stated. OBJECTIVE: VITAL SIGNS: Temperature 98.4, pulse 119 and regular, respiratory rate 22, blood pressure 99/52, saturating 100% on 2 liters nasal cannula. INTAKE AND OUTPUT: Her output in the last 24 hours has been 1425 with 1690 mL of intake. She has had 7 voids and 18 small bowel movements that were of normal consistency. GENERAL: Patient is a pleasant-appearing, well-nourished obese female who appears stated age, sitting upright in the chair by bedside, speaking in complete sentences. HEENT: Head is normocephalic, atraumatic. Extraocular movements intact. No scleral icterus. Mucous membranes moist. NECK: No jugular venous distention (JVD) or lymphadenopathy. Trachea is midline. CARDIOVASCULAR: Regular rate and rhythm. Normal S1, S2. No murmurs, gallops or rubs. RESPIRATORY: Patient has fine crackles on auscultation in her right and left lower lobes with no rhonchi and some mild end expiratory wheezing appreciated throughout. Her breath sounds are full, though. There is no dullness to percussion appreciated. ABDOMEN: Obese, but soft, nontender, nondistended. Difficult to appreciate any organomegaly due to her body habitus. EXTREMITIES: She continues to exhibit 2+ pitting edema in her bilateral lower extremities; however, it is now probably to the level of the knee and appears to be improving as compared to the day prior. NEUROLOGIC: Cranial nerves II-XII are grossly intact. Sensation is grossly intact. No focal neurologic deficits observed. SKIN: Continues to show psoriatic lesions, predominantly of the lower extremities, but also extending into the lower abdomen and small of her back in the lumbar region. There are no signs of drainage, infection. LABORATORY DATA: WBC 2.7, hemoglobin 9.3, hematocrit 31.4, platelet count 108. Sodium 142, potassium 3.6, chloride 107, bicarbonate 30, BUN 20, creatinine 0.92, glucose 132, albumin 2.9. Clostridium (C) difficile serology is pending. Her peritoneal fluid gram stain from yesterday is showing no cells or organisms seen. Her acid-fast and mycobacterial and fungal cultures are still pending. Her fluid count is showing a white blood cell of 212, less than 2 red blood cells, mononucleocytes predominance of 95.3, PMNs of 4.7, fluid glucose of 172, fluid total protein of 0. 9, fluid albumin of 0.5. ASSESSMENT AND PLAN: Ms. Morejon is a 65-year-old female with a history of metastatic adenocarcinoma of the lung with apparent worsening pleural effusions and abdominal ascites who is status post 4 liters of drainage from an abdominal paracentesis performed on 09/28/2020. Pleural effusions: The etiology of this is likely secondary to heart failure or her liver cirrhosis. I do not think there is any indication for either therapeutic or diagnostic thoracentesis at this time. She seems to be responding well when she has fluid taken off of her. We have spoken with Dr. Terrell and Dr. Davies about possibly adding metolazone to maximize her diuretic therapy, as Lasix does not seem to be providing her with adequate diuretic output and given how stable her kidneys are at this point, I think that would be a good idea. Will continue to follow along with this case and await the results of the cytology. However, I do not think there is any need for us to intervene and we will continue to follow from a distance, but will not be rounding on her daily. Please feel free to reach out to us with any questions or concerns in the future if her status changes. Thank you very much for involving us in the care of this patient.
[2020-09-29] MEDS: HEPARIN SOD (PORCINE) 5000UNITS/ML 1ML VIAL/SYRINGE SQ SCH ×2 (14:48→20:46)
--- NOTE | 2020-09-29 14:52 | IPN ---
PROGRESS NOTE DATE: 09/29/2020 SUBJECTIVE: The patient was seen and examined this morning during bedside rounds. The patient was given increased doses of IV Lasix yesterday. She is still not net negative today, however. She did have weight loss documented but this is also after she had removal of about 4 liters of ascites with her paracentesis yesterday. The patient did have some increased shortness of breath and difficulty she noted overnight. She still has very significant anasarca and edema which has not improved much. She denies any fevers or chills. She did have an occasional cough today that she noticed with yellow sputum. She has not had any chest pain and denies any abdominal pain. OBJECTIVE: VITAL SIGNS: Temperature is 98.3, pulse is 118, respirations are 22, blood pressure is 109/53, O2 sat is 96% on 2 liters nasal cannula. Ins 1.6 liters, out 1.4 liters. GENERAL: The patient is a pleasant female. She is sitting in bed and does not appear to be in any acute respiratory distress at rest. She is able to speak in complete sentences and is mildly tachypneic with exertion. HEENT: Normocephalic, atraumatic. Pupils reactive to light bilaterally. Mucous membranes are noted. Mallampati 3. NECK: Supple. Trachea is midline. No palpable cervical. CARDIAC: Regular rate and rhythm. Normal S1 and S2. Unable to appreciate any murmurs. LUNGS: Decrease breath sounds at the bases bilaterally with occasional coarse wheeze and mild crackles. ABDOMEN: Obese, soft, nontender to palpation. There is a firm mass in the subcutaneous area in the left lower quadrant. EXTREMITIES: There is +2 to 3 pitting edema in the bilateral lower extremities up to the thigh and sacral area with diffuse anasarca. There are extensive areas of plaque psoriasis which appear to be more confluent in the groin, inner thigh and buttock area as well as on her back. LABORATORY DATA: WBC is 2.7, hemoglobin is 9.3, platelets are 108,000. Chemistries: Sodium is 142, potassium is 2.6, chloride is 107, bicarbonate is 30, BUN 20, creatinine 0.92, glucose is 132. IMPRESSION: Ms. Morejon is a 65-year-old female with a past medical history significant for metastatic adenocarcinoma of the lung to the pleura and pericardium with possible history of peritoneal implants, history of insulin dependent diabetes, extensive psoriasis, history of cirrhosis with portal hypertension and ascites who initially presented to an outside hospital with cellulitis and worsening lower extremity edema. Patient had been given antibiotics initially with Ancef and then IV Vancomycin and Zosyn at the outside hospital. She was also tachycardic and given IV fluids although she does have a history of chronic tachycardia in the past. Patient had worsening of her edema and dyspnea as well as worsening pleural effusion and was sent here for the possibility of a thoracentesis. On arrival, the patient was noted to be grossly edematous with anasarca. She did also have ascites and she had a paracentesis performed on 09/28/20 with 4 liters of removal of fluid. Post paracentesis she did notice improvement in her dyspnea as well as in the wheezing that she was noticing previously. She was also started on IV Lasix although is still net positive and has not had significant improvement in her edema and anasarca. 1. Decompensated cirrhosis versus right sided heart failure. The patient does have imaging findings of cirrhosis with portal hypertension and ascites although there is an unclear etiology for her cirrhosis. There is also the possibility of malignant ascites with possible peritoneal implants. She also has a history of pulmonary hypertension as well and so there is a possibility of right sided heart failure contributing to her gross anasarca and edema. -The patient is status post paracentesis. She was given albumin yesterday as she does have hypoalbuminemia. Would hold off on albumin at this point, however if she is having difficulty with diuresis or becomes hypotensive would hold off on Crystalloid such as normal saline and given albumin instead for any intravascular depletion. Will continue with IV diuretics. She is on 60 mg of Lasix q. 8 hours. Will add metolazone prior to her Lasix today. She is on Aldactone as well, would consider increasing up to 25 mg particularly given her hypokalemia. Will continue potassium supplementation and continue to monitor her electrolytes and repletion potassium and magnesium accordingly. Will repeat a BMP this afternoon. Patient does have evidence of worsening pleural effusion on the left side compared to her prior CT. This is likely in the setting however of her worsening fluid overload and a degree of hepatic hydrothorax given her ascites. She does have a chronic right sided pleural effusion although this had previously been drained with PleurX catheter and she does have chronic lung entrapment there and that does no appear worse from previous imaging. She does not clinically require any thoracentesis or chest tube placement at this time as she still has not had adequate trial of diuresis. Will continue to monitor renal function in intake and output. We previously discussed a Cosby catheter which she had refused. If she is having difficulty with urination or keeping up with her frequent urination would place Cosby catheter at that time. Will continue with nasal cannula oxygen. She is on 2 liters a minute and satting well currently in a setting above 90%. 2. Possible cellulitis. Patient is on Ceftaroline. She had previously received antibiotics at the outside hospital and on exam the findings on the scan appear more consistent with her plaque psoriasis. The patient's procalcitonin is not significantly elevated. Will consider deescalation of her Ceftaroline if clinically indicated. Will continue her ointment for psoriasis. She is also getting Nystatin powder for fungal infection in her intertriginous folds. 3. Patient has a questionable postobstructive pneumonia or pneumonitis changes. Her CT of the chest on this admission did show increased ground-glass opacity on the right upper lobe as well as some increased consolidation, and air bronchograms in the right lower lobe. Some of this may potentially be due to radiation changes versus possible postobstructive pneumonia. She has only an occasional cough and mucous production currently but no fevers or chills and no leukocytosis. Her procalcitonin is also not significantly elevated so would consider more rapid deescalation of antibiotics. DVT prophylaxis with Heparin. CODE STATUS: DNR/DNI. MTDD
[2020-09-30] VITALS (13 sets, daily range): BP systolic 86–124; BP diastolic 51–76
[2020-09-30] MEDS: IPRATROPIUM 0.5MG/ALBUTEROL 2.5MG INH SOL UD 3ML (DUONEB) NEB SCH ×4 (02:04→19:41)
[2020-09-30] MEDS: FUROSEMIDE 100MG/10ML VIAL (J1940) IV SCH ×3 (05:09→20:16)
[2020-09-30] MEDS: HEPARIN SOD (PORCINE) 5000UNITS/ML 1ML VIAL/SYRINGE SQ SCH ×3 (05:09→22:53)
[2020-09-30 05:43] LABS: HEMATOCRIT 32.1 % (36.0-47.0); HEMOGLOBIN 9.5 g/dl (12.0-15.5); MEAN CORPUSCULAR HEMOGLOBIN 28.3 pg (27.0-33.0); MEAN CORPUSCULAR HGB CONC 29.6 g/dl (32.0-36.5); MEAN CORPUSCULAR VOLUME 95.5 fl (80.0-96.0); PLATELET COUNT, AUTOMATED 104 10^3/uL (150-450); RED BLOOD COUNT 3.36 10^6/uL (4.00-5.40); WHITE BLOOD COUNT 2.3 10^3/uL (4.0-10.0)
[2020-09-30 05:46] LABS: BLOOD UREA NITROGEN 17 MG/DL (7-18); CALCIUM LEVEL 8.3 MG/DL (8.8-10.2); CARBON DIOXIDE LEVEL 34 MEQ/L (21-32); CHLORIDE LEVEL 106 MEQ/L (98-107); GLOMERULAR FILTRATION RATE > 60.0 (>45); GLUCOSE, FASTING 133 MG/DL (70-100); POTASSIUM SERUM 3.8 MEQ/L (3.5-5.1); SODIUM LEVEL 143 MEQ/L (136-145)
[2020-09-30] MEDS: HumaLOG INSULIN (NovoLOG) PER UNIT SC SCH ×4 (08:44→20:15)
[2020-09-30] MEDS: LACTOBACILLUS ACIDOPHILUS CAP (BACID) PO SCH ×3 (08:45→18:26)
[2020-09-30] MEDS: METOPROLOL TART 25 MG TABLET PO SCH ×3 (08:56→18:26)
[2020-09-30] MEDS ORDERED: METOPROLOL SUCC *XL* 25MG TAB (TopROL *XL*) PO SCH (09:00)
[2020-09-30] MEDS: SPIRONOLACTONE 25 MG TAB PO SCH (09:20)
[2020-09-30] MEDS: VILAZODONE 40 MG PO SCH (09:22)
[2020-09-30] MEDS: POTASSIUM CHLORIDE 10 MEQ SR TABLET PO SCH ×2 (09:22→20:16)
[2020-09-30] MEDS: PANTOPRAZOLE 40MG TAB (PROTONIX) PO SCH (09:22)
[2020-09-30] MEDS: AUGMENTIN 875 MG TAB PO SCH ×2 (09:22→20:18)
[2020-09-30] MEDS: SODIUM CHLORIDE 0.9% INJ 10 ML SYR IV SCH (09:23)
[2020-09-30] MEDS: NYSTATIN 100,000 UNITS/GM TOPICAL PWD 15 GM TOP SCH ×2 (09:24→20:15)
--- NOTE | 2020-09-30 10:02 | ECHO ---
DATE OF PROCEDURE: 09/29/2020 Age: 65 Gender: Female Height: 152 cm Weight: 82 kg REFERRING PHYSICIAN: Nelia Rae MD. INDICATION: Edema. MEASUREMENTS: IVS 0.8 cm LV 4.0 cm LVPW 0.9 cm LA 3.5 cm Aorta 2.9 cm IVC 2.1 cm Mitral E wave velocity 96 Mitral A wave 92 E prime septal 10.3 E prime lateral 12.3 FINDINGS: This study is of rather limited technical quality with difficult visualization. The patient is in sinus tachycardia with ventricular rate approximately 120 beats per minute. Left ventricle has normal size and hyperdynamic contractility. I estimate EF approximately 70% to 75%. Right ventricle was relatively poorly visualized, but grossly appears normal. Both atria appear at least mildly enlarged. The aortic valve is sclerotic, but is tricuspid and has preserved mobility. There are degenerative abnormalities of the mitral valve with mitral annular calcifications, but mobility of leaflets is preserved. Tricuspid valve appears normal. Pulmonic valve was not seen. No pericardial effusion is noted. Inferior vena cava is dilated and there is no appreciable collapse with inspiration indicative of very high central venous pressure. Aortic root is normal. Aortic arch and abdominal aorta were poorly seen. Doppler interrogation of the aortic valve reveals no significant stenosis or insufficiency. There is mild mitral and at least moderate tricuspid insufficiency. Calculated pulmonary artery pressure is at least 50 mmHg corresponding to moderate pulmonary hypertension. Evaluation of diastolic function is difficult due to almost complete fusion of mitral E and A wave with underlying tachycardia, but tissue Doppler velocities of the mitral annulus are relatively preserved, so diastolic function is going to be relatively normal. CONCLUSIONS: 1. Study is of limited technical quality, underlying atrial tachycardia. 2. Normal LV size with hyperdynamic LV systolic function and relatively preserved diastolic function. 3. No hemodynamically significant aortic and mitral valvular disease. 4. At least moderate tricuspid insufficiency. 5. Very high central venous pressure and at least moderate pulmonary hypertension. MTDD
--- NOTE | 2020-09-30 10:20 | IPNPDOC ---
Text Note Date of Service The patient was seen on 09/30/20. NOTE Subjective: Patient is a 65-year-old female transferred from [place] after she was noted to have worsening pleural effusions. Patient initially presented fair at 09/23 for lower extremity redness reported to be cellulitis.. She was started on broad-spectrum antibiotics and IV fluid hydration. She was transitioned to [facility] for further evaluation and treatment of her pleural effusions. Pulmonology and cardiothoracic surgery were called on consultation. Patient was seen and examined at the bedside. Patient reports that her breathing is doing relatively fine. Denies any chest pain, shortness of breath or palpitations. Reports that her lower extremities have had some improvement but still are grossly swollen. Denies any abdominal pain, or urinary discomfort. Still reports some diarrhea. Objective: Vitals (See below) General: Lying in bed, no acute distress, AAOx3 HEENT: NC, AT CVS: +S1S2 Lungs: Right lung field with diminished sounds at bases. Diffuse wheezing appreciated bilaterally, no rhonchi appreciated Abdomen: Soft, nondistended and nontender Extremities: There is still 2+ pitting edema bilaterally extending up to the thigh Skin: Plaques arises noted bilaterally on her lower extremities Imaging: CT Chest 09/27: The right chest tube is been removed. The right IJ [id number] catheter is unchanged. The small right pleural effusion is unchanged. The moderate left pleural effusion is unchanged. The abdominal ascites is unchanged. The spiculated right hilar mass is unchanged. The postobstructive pneumonitis/interstitial tumor spread the right is unchanged. The left lung nodule is increased in size today measuring 7 mm (5 mm previously). There is density in the left l lung extending cephalad had and caudad from this nodule, possibly postobstructive pneumonitis, as a change. Splenomegaly. Nodular appearing hepatic margins suggestive of cirrhosis. Liver US 09/28: Moderate abdominal ascites. Paracentesis 09/28: Ultrasound-guided paracentesis yielding 4050 cc of yellow fluid with a sample sent to the lab for analysis ECHO 09/29: 1. Study is of limited technical quality, underlying atrial tachycardia. 2. Normal LV size with hyperdynamic LV systolic function and relatively preserved diastolic function. 3. No hemodynamically significant aortic and mitral valvular disease. 4. At least moderate tricuspid insufficiency. 5. Very high central venous pressure and at least moderate pulmonary hypertension. Assessment and plan: Reported cellulitis / Plaque psoriasis of lower extremities - Remains hemodynamically stable and afebrile - No leukocytosis - s/p Ceftaroline; c/w Augmentin for completion of course Post-obstructive PNA - History of Lung CA on right - Imaging reviewed - c/w Augmentin for completion of antibiotic course - Pulmonology on consultation Fluid overload with ascites - likely 2/2 cirrhosis / pulmonary HTN - Patient has had significant diuresis based on her accord - She does not want a Cosby catheter at this time - s/p paracentesis and removal of 4 L of fluid (09/28) - Imaging reviewed above; nodularity of liver noted - ECHO noted above - c/w Furosemide / Spironolactone (will increase dose); s/p Albumin infusion - s/p Metolazone x 1 dose yesterday Metastatic Adenocarcinoma - Currently patient is on Keytruda - Will have outpatient follow-up with oncology Diarrhea - possibly 2/2 Keytruda - C. diff negative - Will start Imodium - c/w Bacid HTN - BP well controlled - c/w Metoprolol; will increase dose / frequency DM2 - c/w ISS Depression - c/w own medications; Viibryd GERD - c/w Protonix DVT prophylaxis - c/w Heparin Disposition: - Awaiting clinical improvement Gaudencio TERAN I+O VSGaudencio I+O Laboratory Tests 09/30/20 05:08 Vital Signs Date Time Temp Pulse Resp B/P (MAP) Pulse Ox O2 Delivery O2 Flow Rate FiO2 09/30/20 08:56 124 118/76 09/30/20 08:00 98.6 18 99 Nasal Cannula 2.0 I&O- Last 24 Hours up to 6 AM 09/30/20 06:00 Intake Total 480 ml Output Total 0 ml Balance 480 ml REILLY LIEBERMAN MD Sep 30, 2020 10:20
[2020-09-30] MEDS: SODIUM CHLORIDE 0.9% INJ 10 ML SYR IV PRN (18:54)
[2020-09-30] MEDS: CALCIPOTRIENE CREAM 0.005% 60GM TOP PRN (20:15)
[2020-10-01] VITALS (13 sets, daily range): BP systolic 92–126; BP diastolic 51–70
[2020-10-01] MEDS: METOPROLOL TART 25 MG TABLET PO SCH ×5 (01:00→23:33)
[2020-10-01] MEDS: IPRATROPIUM 0.5MG/ALBUTEROL 2.5MG INH SOL UD 3ML (DUONEB) NEB SCH ×4 (02:14→20:17)
[2020-10-01] MEDS: FUROSEMIDE 100MG/10ML VIAL (J1940) IV SCH ×3 (05:00→21:22)
[2020-10-01] MEDS: HEPARIN SOD (PORCINE) 5000UNITS/ML 1ML VIAL/SYRINGE SQ SCH ×3 (06:24→21:23)
[2020-10-01 07:00] LABS: HEMATOCRIT 31.9 % (36.0-47.0); HEMOGLOBIN 9.4 g/dl (12.0-15.5); MEAN CORPUSCULAR HEMOGLOBIN 28.5 pg (27.0-33.0); MEAN CORPUSCULAR HGB CONC 29.5 g/dl (32.0-36.5); MEAN CORPUSCULAR VOLUME 96.7 fl (80.0-96.0); PLATELET COUNT, AUTOMATED 111 10^3/uL (150-450); WHITE BLOOD COUNT 2.9 10^3/uL (4.0-10.0)
[2020-10-01 07:23] LABS: BLOOD UREA NITROGEN 18 MG/DL (7-18); CALCIUM LEVEL 8.6 MG/DL (8.8-10.2); CARBON DIOXIDE LEVEL 34 MEQ/L (21-32); CHLORIDE LEVEL 105 MEQ/L (98-107); GLOMERULAR FILTRATION RATE > 60.0 (>45); GLUCOSE, FASTING 135 MG/DL (70-100); POTASSIUM SERUM 4.1 MEQ/L (3.5-5.1); SODIUM LEVEL 142 MEQ/L (136-145)
[2020-10-01] MEDS: LACTOBACILLUS ACIDOPHILUS CAP (BACID) PO SCH ×3 (08:06→17:55)
[2020-10-01] MEDS: PANTOPRAZOLE 40MG TAB (PROTONIX) PO SCH (08:07)
[2020-10-01] MEDS: SPIRONOLACTONE 25 MG TAB PO SCH (08:07)
[2020-10-01] MEDS: SODIUM CHLORIDE 0.9% INJ 10 ML SYR IV SCH (08:07)
[2020-10-01] MEDS: POTASSIUM CHLORIDE 10 MEQ SR TABLET PO SCH ×2 (08:07→21:22)
[2020-10-01] MEDS: HumaLOG INSULIN (NovoLOG) PER UNIT SC SCH ×4 (08:08→21:00)
[2020-10-01] MEDS: AUGMENTIN 875 MG TAB PO SCH ×2 (08:08→21:22)
[2020-10-01] MEDS: VILAZODONE 40 MG PO SCH (08:09)
[2020-10-01] MEDS ORDERED: METOPROLOL TART 25 MG TABLET PO ONE (08:15)
[2020-10-01] MEDS: NYSTATIN 100,000 UNITS/GM TOPICAL PWD 15 GM TOP SCH ×2 (08:22→21:00)
--- NOTE | 2020-10-01 09:24 | ECGEPIP ---
[facility] Test Date: 2020-09-30 Pat Name: CODY AMATO Department: Room: [place] [address] Gender: Female Machine [employer]er: ISSA : 1955 Requested By: REILLY LIEBERMAN Order Number: [id number] Reading MD: Joe Thompson Measurements Intervals [place] Rate: 113 P: 29 RI: 146 QRS: 9 QRSD: 64 T: 160 QT: 292 QTc: 400 Interpretive Statements Sinus tachycardia Low QRS complex voltage throughout Anterior DC, age indeterminate Nonspecific ST-T wave abnormalities No significant change when compared to prior tracing of 07/26/2020 Electronically Signed on 10-01-2020 9:24:36 EDT by Joe Thompson
--- NOTE | 2020-10-01 10:07 | IPNPDOC ---
Text Note Date of Service The patient was seen on 10/01/20. NOTE Subjective: Patient is a 65-year-old female transferred from [place] after she was noted to have worsening pleural effusions. Patient initially presented fair at 09/23 for lower extremity redness reported to be cellulitis.. She was started on broad-spectrum antibiotics and IV fluid hydration. She was transitioned to [facility] for further evaluation and treatment of her pleural effusions. Pulmonology and cardiothoracic surgery were called on consultation. Patient was seen and examined at the bedside. Patient is sitting up at the edge of the bed working with physical therapy, appears to be doing better. Denies any nausea, vomiting, chest pain, shortness of breath, palpitations, abdominal pain. Reports that her lower extremities are doing better but still appear to be grossly swollen. Objective: Vitals (See below) General: Sitting up at the edge of the bed, appears to be comfortable without acute distress, is awake, alert and oriented 3 HEENT: NC, AT CVS: +S1S2 Lungs: There is improved aeration bilaterally. There is still wheezing appreciated diffusely Abdomen: Nondistended, without tenderness, and remains soft Extremities: 2-3+ pitting edema extending up the thighs Skin: Plaque psoriasis noted of lower extremities and of her back Imaging: CT Chest 09/27: The right chest tube is been removed. The right IJ [id number] catheter is unchanged. The small right pleural effusion is unchanged. The moderate left pleural effusion is unchanged. The abdominal ascites is unchanged. The spiculated right hilar mass is unchanged. The postobstructive pneumo nitis/interstitial tumor spread the right is unchanged. The left lung nodule is increased in size today measuring 7 mm (5 mm previously). There is density in the left l lung extending cephalad had and caudad from this nodule, possibly postobstructive pneumonitis, as a change. Splenomegaly. Nodular appearing hepatic margins suggestive of cirrhosis. Liver US 09/28: Moderate abdominal ascites. Paracentesis 09/28: Ultrasound-guided paracentesis yielding 4050 cc of yellow fluid with a sample sent to the lab for analysis ECHO 09/29: 1. Study is of limited technical quality, underlying atrial tachycardia. 2. Normal LV size with hyperdynamic LV systolic function and relatively preserved diastolic function. 3. No hemodynamically significant aortic and mitral valvular disease. 4. At least moderate tricuspid insufficiency. 5. Very high central venous pressure and at least moderate pulmonary hypertension. Assessment and plan: Reported cellulitis / Plaque psoriasis of lower extremities - Remains hemodynamically stable and afebrile - No leukocytosis - s/p Ceftaroline; c/w Augmentin for completion of course Post-obstructive PNA - History of Lung CA on right - Imaging reviewed - c/w Augmentin for completion of antibiotic course - Pulmonology on consultation Fluid overload with ascites - likely 2/2 cirrhosis / pulmonary HTN - Patient has had significant diuresis based on her accord - She does not want a Cosby catheter at this time - s/p paracentesis and removal of 4 L of fluid (09/28) - fluid noted to be positive for malignancy - Imaging reviewed above; nodularity of liver noted - ECHO noted above - c/w Furosemide / Spironolactone - Will adjust hold parameters for furosemide - Albumin infusions were added yesterday to facilitate doses of furosemide - s/p Metolazone x 1 dose 09/29 Metastatic Adenocarcinoma - Currently patient is on Keytruda - Will have outpatient follow-up with oncology Diarrhea - possibly 2/2 Keytruda - C. diff negative - c/w Imodium; has not received any in the 24 hours - c/w Bacid HTN - BP well controlled - c/w Metoprolol; will increase dose / frequency DM2 - c/w ISS Depression - c/w own medications; Viibryd GERD - c/w Protonix DVT prophylaxis - c/w Heparin Disposition: - Awaiting clinical improvement VSGaudencio, I+O VSGaudencio, I+O Laboratory Tests 10/01/20 06:15 Vital Signs Date Time Temp Pulse Resp B/P (MAP) Pulse Ox O2 Delivery O2 Flow Rate FiO2 10/01/20 08:00 97.4 123 20 114/59 (77) 98 Nasal Cannula 2.0 I&O- Last 24 Hours up to 6 AM 10/01/20 06:00 Intake Total 1826.0 ml Output Total 665 ml Balance 1161.0 ml REILLY LIEBERMAN MD Oct 01, 2020 10:06
[2020-10-01] MEDS: LOPERAMIDE 2 MG CAPLET PO PRN (10:59)
[2020-10-02] VITALS (9 sets, daily range): BP systolic 93–114; BP diastolic 56–71
[2020-10-02] MEDS: IPRATROPIUM 0.5MG/ALBUTEROL 2.5MG INH SOL UD 3ML (DUONEB) NEB SCH ×4 (01:46→20:15)
[2020-10-02] MEDS: FUROSEMIDE 100MG/10ML VIAL (J1940) IV SCH (05:00)
[2020-10-02] MEDS: HEPARIN SOD (PORCINE) 5000UNITS/ML 1ML VIAL/SYRINGE SQ SCH ×3 (05:01→21:30)
[2020-10-02] MEDS: METOPROLOL TART 25 MG TABLET PO SCH ×4 (05:02→17:23)
[2020-10-02 06:07] LABS: HEMATOCRIT 30.7 % (36.0-47.0); HEMOGLOBIN 9.1 g/dl (12.0-15.5); MEAN CORPUSCULAR HEMOGLOBIN 28.5 pg (27.0-33.0); MEAN CORPUSCULAR HGB CONC 29.6 g/dl (32.0-36.5); MEAN CORPUSCULAR VOLUME 96.2 fl (80.0-96.0); PLATELET COUNT, AUTOMATED 106 10^3/uL (150-450); RED BLOOD COUNT 3.19 10^6/uL (4.00-5.40); WHITE BLOOD COUNT 2.7 10^3/uL (4.0-10.0)
[2020-10-02 06:32] LABS: BLOOD UREA NITROGEN 18 MG/DL (7-18); CALCIUM LEVEL 9.1 MG/DL (8.8-10.2); CARBON DIOXIDE LEVEL 35 MEQ/L (21-32); CHLORIDE LEVEL 104 MEQ/L (98-107); CREATININE FOR GFR 0.95 MG/DL (0.55-1.30); GLOMERULAR FILTRATION RATE > 60.0 (>45); GLUCOSE, FASTING 142 MG/DL (70-100); POTASSIUM SERUM 4.1 MEQ/L (3.5-5.1); SODIUM LEVEL 142 MEQ/L (136-145)
[2020-10-02] MEDS: HumaLOG INSULIN (NovoLOG) PER UNIT SC SCH ×4 (07:30→21:00)
[2020-10-02] MEDS: SPIRONOLACTONE 25 MG TAB PO SCH (08:52)
[2020-10-02] MEDS: TORSEMIDE 20 MG TAB PO SCH ×2 (09:00→17:00)
[2020-10-02] MEDS: POTASSIUM CHLORIDE 10 MEQ SR TABLET PO SCH ×2 (09:03→21:29)
[2020-10-02] MEDS: PANTOPRAZOLE 40MG TAB (PROTONIX) PO SCH (09:03)
[2020-10-02] MEDS: LACTOBACILLUS ACIDOPHILUS CAP (BACID) PO SCH ×3 (09:03→17:24)
[2020-10-02] MEDS: AUGMENTIN 875 MG TAB PO SCH ×2 (09:03→21:29)
[2020-10-02] MEDS: SODIUM CHLORIDE 0.9% INJ 10 ML SYR IV SCH (09:04)
[2020-10-02] MEDS: VILAZODONE 40 MG PO SCH (09:04)
[2020-10-02] MEDS: NYSTATIN 100,000 UNITS/GM TOPICAL PWD 15 GM TOP SCH ×2 (09:57→21:30)
[2020-10-02] MEDS: CALCIPOTRIENE CREAM 0.005% 60GM TOP PRN (09:58)
[2020-10-02] MEDS ORDERED: TORSEMIDE 20 MG TAB PO ONE (10:20)
--- NOTE | 2020-10-02 10:31 | IPNPDOC ---
Text Note Date of Service The patient was seen on 10/02/20. NOTE Subjective: Patient is a 65-year-old female transferred from [place] after she was noted to have worsening pleural effusions. Patient initially presented fair at 09/23 for lower extremity redness reported to be cellulitis.. She was started on broad-spectrum antibiotics and IV fluid hydration. She was transitioned to [facility] for further evaluation and treatment of her pleural effusions. Pulmonology and cardiothoracic surgery were called on consultation. Patient was seen and examined at the bedside. Currently patient is seen sitting up in chair and appears to be comfortable. She denies any chest pain, shortness breath or palpitations. Has not experience any nausea, vomiting or abdominal pain. Patient denies any urinary discomfort. Objective: Vitals (See below) General: Patient is sitting in chair, eating breakfast, comfortable, awake, alert, oriented 3 HEENT: Normocephalic and atraumatic CVS: +S1S2 Lungs: Appears to have fair air entry bilaterally without evidence of wheezing, crackles or rhonchi Abdomen: No distention, no tenderness Extremities: There is 2+ pitting edema bilaterally extending up to thighs Skin: Plaque psoriasis noted of lower extremities and of her back Imaging: CT Chest 09/27: The right chest tube is been removed. The right IJ Chmvis-B-Zlth catheter is unchanged. The small right pleural effusion is unchanged. The moderate left pleural effusion is unchanged. The abdominal ascites is unchanged. The spiculated right hilar mass is unchanged. The postobstructive pneumonitis/interstitial tumor spread the right is unchanged. The left lung nodule is increased in size today measuring 7 mm (5 mm previously). There is density in the left l lung extending cephalad had and caudad from this nodule, possibly postobstructive pneumonitis, as a change. Splenomegaly. Nodular appearing hepatic margins suggestive of cirrhosis. Liver US 09/28: Moderate abdominal ascites. Paracentesis 09/28: Ultrasound-guided paracentesis yielding 4050 cc of yellow fluid with a sample sent to the lab for analysis ECHO 09/29: 1. Study is of limited technical quality, underlying atrial tachycardia. 2. Normal LV size with hyperdynamic LV systolic function and relatively preserved diastolic function. 3. No hemodynamically significant aortic and mitral valvular disease. 4. At least moderate tricuspid insufficiency. 5. Very high central venous pressure and at least moderate pulmonary hypertension. Assessment and plan: Fluid overload with ascites - likely 2/2 cirrhosis / pulmonary HTN - Continues to have adequate diuresis - s/p paracentesis and removal of 4 L of fluid (09/28) - fluid noted to be positive for malignancy - Imaging reviewed above; nodularity of liver noted - ECHO noted above - s/p Albumin - c/w Spironolactone; Will DC Furosemide; will start Torsemide - s/p Metolazone x 1 dose 09/29 - Will start Midodrine to help support diuresis Reported cellulitis / Plaque psoriasis of lower extremities - Remains hemodynamically stable and afebrile - No leukocytosis - s/p Ceftaroline; c/w Augmentin for completion of course Post-obstructive PNA - History of Lung CA on right - Imaging reviewed - c/w Augmentin for completion of antibiotic course - Pulmonology on consultation Metastatic Adenocarcinoma - Currently patient is on Keytruda - Will have outpatient follow-up with oncology Diarrhea - possibly 2/2 Keytruda - C. diff negative - c/w Imodium; has not received any in the 24 hours - c/w Bacid Hypotension / Tachycardia - BP well controlled - c/w Metoprolo - Will add Midodrine to support diuresis DM2 - c/w ISS Depression - c/w own medications; Viibryd GERD - c/w Protonix DVT prophylaxis - c/w Heparin Disposition: - Awaiting clinical improvement VS,Gaudencio, I+O VS, Gaudencio, I+O Laboratory Tests 10/02/20 05:43 Vital Signs Date Time Temp Pulse Resp B/P (MAP) Pulse Ox O2 Delivery O2 Flow Rate FiO2 10/02/20 08:00 98.7 111 19 93/58 (70) 100 Nasal Cannula 2.0 I&O- Last 24 Hours up to 6 AM 10/02/20 06:00 Intake Total 820.0 ml Output Total 1160 ml Balance -340.0 ml REILLY LIEBERMAN MD Oct 02, 2020 10:26
[2020-10-02] MEDS: MIDODRINE 5 MG TAB PO SCH ×2 (13:10→17:23)
[2020-10-02] MEDS: SIMVASTATIN 20 MG TAB PO SCH (21:29)
[2020-10-03] VITALS (7 sets, daily range): BP systolic 98–125; BP diastolic 53–64
[2020-10-03] MEDS: IPRATROPIUM 0.5MG/ALBUTEROL 2.5MG INH SOL UD 3ML (DUONEB) NEB SCH ×4 (01:07→20:29)
[2020-10-03] MEDS: METOPROLOL TART 25 MG TABLET PO SCH ×4 (05:06→18:07)
[2020-10-03] MEDS: HEPARIN SOD (PORCINE) 5000UNITS/ML 1ML VIAL/SYRINGE SQ SCH ×3 (05:06→21:06)
[2020-10-03 07:08] LABS: HEMATOCRIT 32.1 % (36.0-47.0); HEMOGLOBIN 9.4 g/dl (12.0-15.5); MEAN CORPUSCULAR HEMOGLOBIN 28.2 pg (27.0-33.0); MEAN CORPUSCULAR HGB CONC 29.3 g/dl (32.0-36.5); MEAN CORPUSCULAR VOLUME 96.4 fl (80.0-96.0); PLATELET COUNT, AUTOMATED 105 10^3/uL (150-450); RED BLOOD COUNT 3.33 10^6/uL (4.00-5.40); WHITE BLOOD COUNT 3.5 10^3/uL (4.0-10.0)
[2020-10-03 08:56] LABS: BLOOD UREA NITROGEN 20 MG/DL (7-18); CALCIUM LEVEL 8.5 MG/DL (8.8-10.2); CARBON DIOXIDE LEVEL 32 MEQ/L (21-32); CHLORIDE LEVEL 105 MEQ/L (98-107); CREATININE FOR GFR 0.91 MG/DL (0.55-1.30); GLOMERULAR FILTRATION RATE > 60.0 (>45); GLUCOSE, FASTING 147 MG/DL (70-100); POTASSIUM SERUM 4.4 MEQ/L (3.5-5.1); SODIUM LEVEL 142 MEQ/L (136-145)
[2020-10-03] MEDS: TORSEMIDE 20 MG TAB PO SCH ×3 (09:00→18:08)
[2020-10-03] MEDS: PANTOPRAZOLE 40MG TAB (PROTONIX) PO SCH (09:14)
[2020-10-03] MEDS: MIDODRINE 5 MG TAB PO SCH ×3 (09:14→16:18)
[2020-10-03] MEDS: HumaLOG INSULIN (NovoLOG) PER UNIT SC SCH ×4 (09:14→20:20)
[2020-10-03] MEDS: POTASSIUM CHLORIDE 10 MEQ SR TABLET PO SCH ×2 (09:15→21:06)
[2020-10-03] MEDS: AUGMENTIN 875 MG TAB PO SCH ×2 (09:15→21:06)
[2020-10-03] MEDS: VILAZODONE 40 MG PO SCH (09:15)
[2020-10-03] MEDS: LACTOBACILLUS ACIDOPHILUS CAP (BACID) PO SCH ×3 (09:16→18:07)
[2020-10-03] MEDS: SPIRONOLACTONE 25 MG TAB PO SCH (09:16)
[2020-10-03] MEDS: NYSTATIN 100,000 UNITS/GM TOPICAL PWD 15 GM TOP SCH ×2 (09:17→21:08)
[2020-10-03] MEDS: SODIUM CHLORIDE 0.9% INJ 10 ML SYR IV SCH (09:17)
--- NOTE | 2020-10-03 10:31 | IPNPDOC ---
Text Note Date of Service The patient was seen on 10/03/20. NOTE Subjective: Patient is a 65-year-old female transferred from [place] after she was noted to have worsening pleural effusions. Patient initially presented fair at 09/23 for lower extremity redness reported to be cellulitis.. She was started on broad-spectrum antibiotics and IV fluid hydration. She was transitioned to [facility] for further evaluation and treatment of her pleural effusions. Pulmonology and cardiothoracic surgery were called on consultation. Patient was seen and examined at the bedside. Patient sitting in chair eating breakfast appears comfortable, not in any acute distress. Denied chest pain, shortness breath, palpitations. Reports her lower extremity swelling is improving and she can move her legs a little better. Objective: Vitals (See below) General: Patient sitting up in chair eating breakfast appears comfortable, does not appear to be in any acute distress, is awake, alert and oriented 3 HEENT: Normocephalic and atraumatic CVS: +S1S2 Lungs: There is wheezing bilaterally. No evidence of crackles or rhonchi Abdomen: Without distention or tenderness Extremities: 3+ pitting edema bilaterally Imaging: CT Chest 09/27: The right chest tube is been removed. The right IJ Rdndnd-A-Arrw catheter is unchanged. The small right pleural effusion is unchanged. The moderate left pleural effusion is unchanged. The abdominal ascites is unchanged. The spiculated right hilar mass is unchanged. The postobstructive pneumonitis/interstitial tumor spread the right is unchanged. The left lung nodule is increased in size today measuring 7 mm (5 mm previously). There is density in the left l lung extending cephalad had and caudad from this nodule, possibly postobstructive pneumonitis, as a change. Splenomegaly. Nodular appearing hepatic margins suggestive of cirrhosis. Liver US 09/28: Moderate abdominal ascites. Paracentesis 09/28: Ultrasound-guided paracentesis yielding 4050 cc of yellow fluid with a sample sent to the lab for analysis ECHO 09/29: 1. Study is of limited technical quality, underlying atrial tachycardia. 2. Normal LV size with hyperdynamic LV systolic function and relatively preserved diastolic function. 3. No hemodynamically significant aortic and mitral valvular disease. 4. At least moderate tricuspid insufficiency. 5. Very high central venous pressure and at least moderate pulmonary hypertension. Assessment and plan: Fluid overload with ascites - likely 2/2 cirrhosis / pulmonary HTN - Patient reports that she feels better, able to move her legs a little better now - s/p paracentesis and removal of 4 L of fluid (09/28) - fluid noted to be positive for malignancy - Imaging reviewed above; nodularity of liver noted - ECHO noted above - s/p Albumin - s/p Furosemide; Will adjust dose of Torsemide - c/w Spironolactone - s/p Metolazone x 1 dose 09/29 - c/w Midodrine to help support diuresis Plaque psoriasis of lower extremities - No evidence of cellulitis - c/w Topical Post-obstructive PNA - History of Lung CA on right - Imaging reviewed - c/w Augmentin for completion of antibiotic course (End date 10/03) - Pulmonology on consultation Metastatic Adenocarcinoma of Lung - Paracentesis fluid positive for malignancy - Currently patient is on Keytruda - Will have outpatient follow-up with Oncology Diarrhea - possibly 2/2 Keytruda - C. diff negative - c/w Imodium as needed - c/w Bacid Hypotension / Tachycardia - BP well controlled - c/w Metoprolol - c/w Midodrine to support diuresis DM2 - c/w ISS Depression - c/w own medications; Viibryd GERD - c/w Protonix DVT prophylaxis - c/w Heparin Disposition: - Awaiting clinical improvement VSGaudencio, I+O VSGaudencio I+O Laboratory Tests 10/03/20 07:03 Vital Signs Date Time Temp Pulse Resp B/P (MAP) Pulse Ox O2 Delivery O2 Flow Rate FiO2 10/03/20 08:45 2.0 10/03/20 07:45 97.3 104 22 99/56 (70) 100 Nasal Cannula I&O- Last 24 Hours up to 6 AM 10/03/20 05:59 Intake Total 1320 ml Output Total 500 ml Balance 820 ml REILLY LIEBERMAN MD Oct 03, 2020 10:31
[2020-10-03] MEDS: SIMVASTATIN 20 MG TAB PO SCH (21:06)
[2020-10-04] VITALS: BP 121/69
[2020-10-04] MEDS: METOPROLOL TART 25 MG TABLET PO SCH ×5 (00:43→23:55)
[2020-10-04] MEDS: IPRATROPIUM 0.5MG/ALBUTEROL 2.5MG INH SOL UD 3ML (DUONEB) NEB SCH ×4 (01:48→19:30)
[2020-10-04 04:00] VITALS: BP 132/76
[2020-10-04] MEDS: HEPARIN SOD (PORCINE) 5000UNITS/ML 1ML VIAL/SYRINGE SQ SCH ×3 (05:17→22:06)
[2020-10-04 05:55] LABS: HEMATOCRIT 32.4 % (36.0-47.0); HEMOGLOBIN 9.4 g/dl (12.0-15.5); MEAN CORPUSCULAR HEMOGLOBIN 27.9 pg (27.0-33.0); MEAN CORPUSCULAR VOLUME 96.1 fl (80.0-96.0); PLATELET COUNT, AUTOMATED 120 10^3/uL (150-450); RED BLOOD COUNT 3.37 10^6/uL (4.00-5.40); WHITE BLOOD COUNT 3.5 10^3/uL (4.0-10.0)
[2020-10-04 07:09] LABS: BLOOD UREA NITROGEN 22 MG/DL (7-18); CALCIUM LEVEL 8.9 MG/DL (8.8-10.2); CARBON DIOXIDE LEVEL 34 MEQ/L (21-32); CHLORIDE LEVEL 105 MEQ/L (98-107); CREATININE FOR GFR 0.92 MG/DL (0.55-1.30); GLOMERULAR FILTRATION RATE > 60.0 (>45); GLUCOSE, FASTING 148 MG/DL (70-100); POTASSIUM SERUM 4.2 MEQ/L (3.5-5.1); SODIUM LEVEL 143 MEQ/L (136-145)
[2020-10-04 08:00] VITALS: BP 107/57
[2020-10-04] MEDS: SODIUM CHLORIDE 0.9% INJ 10 ML SYR IV SCH (08:45)
[2020-10-04] MEDS: HumaLOG INSULIN (NovoLOG) PER UNIT SC SCH ×4 (08:45→21:00)
[2020-10-04] MEDS: POTASSIUM CHLORIDE 10 MEQ SR TABLET PO SCH ×2 (08:46→22:05)
[2020-10-04] MEDS: LACTOBACILLUS ACIDOPHILUS CAP (BACID) PO SCH ×3 (08:46→17:41)
[2020-10-04] MEDS: TORSEMIDE 20 MG TAB PO SCH ×2 (08:46→17:41)
[2020-10-04] MEDS: NYSTATIN 100,000 UNITS/GM TOPICAL PWD 15 GM TOP SCH ×2 (08:47→22:06)
[2020-10-04] MEDS: PANTOPRAZOLE 40MG TAB (PROTONIX) PO SCH (08:47)
[2020-10-04] MEDS: MIDODRINE 5 MG TAB PO SCH ×3 (08:47→15:01)
[2020-10-04] MEDS: VILAZODONE 40 MG PO SCH (08:47)
[2020-10-04] MEDS: SPIRONOLACTONE 25 MG TAB PO SCH (09:00)
--- NOTE | 2020-10-04 09:04 | REP ---
INDICATION: SOB. COMPARISON: Comparison chest x-ray August 05, 2020. Comparison radiograph September 10, 2020 also reviewed. TECHNIQUE: Two views.. FINDINGS: A right-sided Leocui-T-Quri catheter remains in place. Oxygen delivery tubing and the EKG electrodes are seen. There is evidence of bilateral pleural effusions, right greater than left similar to the August 05, 2020 radiograph. There are air bronchograms in the right lower lobe which are similar to the September 10, 2020 radiograph as well. Cardiomegaly is observed. IMPRESSION: Bilateral pleural effusions. Chronic atelectasis or infiltrate right lower lobe. Cardiomegaly. Iqsoqq-A-Pkma catheter in place.. <Electronically signed by Shorty Okeefe > 10/04/20 0901
--- NOTE | 2020-10-04 09:26 | IPNPDOC ---
Text Note Date of Service The patient was seen on 10/04/20. NOTE Subjective: Patient is a 65-year-old female transferred from [place] after she was noted to have worsening pleural effusions. Patient initially presented fair at 09/23 for lower extremity redness reported to be cellulitis.. She was started on broad-spectrum antibiotics and IV fluid hydration. She was transitioned to [facility] for further evaluation and treatment of her pleural effusions. Pulmonology and cardiothoracic surgery were called on consultation. Patient was seen and examined at the bedside. Currently patient reports that her lower extremities have improved. Denies any abdominal pain, or urinary discomfort. Diarrhea has improved with Imodium. Patient denies any chest pain or palpitations, but does report some shortness of breath that may have worsened. Objective: Vitals (See below) General: Sitting up in chair eating breakfast appears comfortable, not in any acute distress AAO3 HEENT: NC, AT CVS: +S1S2 Lungs: Air entry is fair bilaterally bases have very faint crackles, mild wheezing is noted today, which is improved from yesterday Abdomen: Nondistended and nontender Extremities: Lower extremity still reveal pitting edema, currently at 2-3+ Imaging: CT Chest 09/27: The right chest tube is been removed. The right IJ Lcnxxr-N-Khcv catheter is unchanged. The small right pleural effusion is unchanged. The moderate left pleural effusion is unchanged. The abdominal ascites is unchanged. The spiculated right hilar mass is unchanged. The postobstructive pneumonitis/interstitial tumor spread the right is unchanged. The left lung nodule is increased in size today measuring 7 mm (5 mm previously). There is density in the left l lung extending cephalad had and caudad from this nodule, possibly postobstructive pneumonitis, as a change. Splenomegaly. Nodular appearing hepatic margins suggestive of cirrhosis. Liver US 09/28: Moderate abdominal ascites. Paracentesis 09/28: Ultrasound-guided paracentesis yielding 4050 cc of yellow fluid with a sample sent to the lab for analysis ECHO 09/29: 1. Study is of limited technical quality, underlying atrial tachycardia. 2. Normal LV size with hyperdynamic LV systolic function and relatively preserved diastolic function. 3. No hemodynamically significant aortic and mitral valvular disease. 4. At least moderate tricuspid insufficiency. 5. Very high central venous pressure and at least moderate pulmonary hype rtension. CXR 10/04: Bilateral pleural effusions. Chronic atelectasis or infiltrate right lower lobe. Cardiomegaly. Llhlji-F-Agul catheter in place.. Assessment and plan: Fluid overload with ascites - likely 2/2 cirrhosis / pulmonary HTN - Patient continues to work with physical therapy - s/p paracentesis and removal of 4 L of fluid (09/28) - fluid noted to be positive for malignancy - Imaging reviewed above; nodularity of liver noted - ECHO noted above - s/p Albumin - c/w Torsemide; s/p Furosemide and Metolazone - c/w Spironolactone - c/w Midodrine to help support diuresis Plaque psoriasis of lower extremities - No evidence of cellulitis - c/w Topical Post-obstructive PNA - History of Lung CA on right - Imaging reviewed; repeat completed today still reveals persistent bilateral pleural effusions with unchanged air bronchograms - s/p Augmentin and Ceftaroline (Antibiotic duration 7 days) - Pulmonology on consultation; will discuss new imaging findings Metastatic Adenocarcinoma of Lung - Paracentesis fluid positive for malignancy - Currently patient is on Keytruda - Will have outpatient follow-up with Oncology Diarrhea - possibly 2/2 Keytruda - C. diff negative - c/w Imodium as needed - c/w Bacid Hypotension / Tachycardia - BP well controlled - c/w Metoprolol - c/w Midodrine to support diuresis DM2 - c/w ISS Depression - c/w own medications; Viibryd GERD - c/w Protonix DVT prophylaxis - c/w Heparin Disposition: - Awaiting clinical improvement - Anticipate DC within 24-48 hours VS,Roberthbone, I+O VS, Fishbone, I+O Laboratory Tests 10/04/20 05:30 Vital Signs Date Time Temp Pulse Resp B/P (MAP) Pulse Ox O2 Delivery O2 Flow Rate FiO2 10/04/20 08:00 98.6 97 17 107/57 (74) 98 Nasal Cannula 2.0 I&O- Last 24 Hours up to 6 AM 10/04/20 06:00 Intake Total 1080 ml Output Total 1610 ml Balance -530 ml REILLY LIEBERMAN MD Oct 04, 2020 09:26
[2020-10-04] MEDS: CALCIPOTRIENE CREAM 0.005% 60GM TOP PRN ×2 (10:15→17:40)
[2020-10-04] MEDS: guaiFENesin ER 600 MG TAB PO SCH ×2 (10:58→22:05)
[2020-10-04 12:59] VITALS: BP 133/76
[2020-10-04] MEDS: LOPERAMIDE 2 MG CAPLET PO PRN (14:55)
[2020-10-04] MEDS ORDERED: MIDODRINE 2.5 MG TAB PO SCH (18:20)
[2020-10-04 19:30] VITALS: O2SAT 98
[2020-10-04 22:00] VITALS: BP 104/61
[2020-10-04] MEDS: SIMVASTATIN 20 MG TAB PO SCH (22:05)
[2020-10-05] MEDS: IPRATROPIUM 0.5MG/ALBUTEROL 2.5MG INH SOL UD 3ML (DUONEB) NEB PRN ×2 (00:25→06:09)
[2020-10-05] MEDS: IPRATROPIUM 0.5MG/ALBUTEROL 2.5MG INH SOL UD 3ML (DUONEB) NEB SCH ×5 (01:54→20:03)
[2020-10-05] MEDS: METOPROLOL TART 25 MG TABLET PO SCH ×3 (05:59→17:17)
[2020-10-05] MEDS: HEPARIN SOD (PORCINE) 5000UNITS/ML 1ML VIAL/SYRINGE SQ SCH ×3 (05:59→21:30)
[2020-10-05 06:37] VITALS: BP 103/65
[2020-10-05] MEDS: HumaLOG INSULIN (NovoLOG) PER UNIT SC SCH ×4 (07:27→21:00)
[2020-10-05 08:20] LABS: BASO % 1.1 % (0.0-1.0); EOS % 1.4 % (0.0-3.0); HEMATOCRIT 23.6 % (36.0-47.0); LYMPH # 0.3 10^3/uL (1.5-5.0); LYMPH % 11.2 % (24.0-44.0); MEAN CORPUSCULAR HEMOGLOBIN 28.5 pg (27.0-33.0); MEAN CORPUSCULAR HGB CONC 28.8 g/dl (32.0-36.5); MEAN CORPUSCULAR VOLUME 98.7 fl (80.0-96.0); MONO # 0.3 10^3/uL (0.0-0.8); MONO % 11.6 % (2.0-8.0); NEUTROPHILS # 2.1 10^3/uL (1.5-8.5); RED BLOOD COUNT 2.39 10^6/uL (4.00-5.40); WHITE BLOOD COUNT 2.9 10^3/uL (4.0-10.0)
[2020-10-05 08:26] LABS: HEMOGLOBIN 6.8 g/dl (12.0-15.5); PLATELET COUNT, AUTOMATED 84 10^3/uL (150-450)
[2020-10-05] MEDS: SODIUM CHLORIDE 0.9% INJ 10 ML SYR IV SCH (09:00)
[2020-10-05] MEDS: TORSEMIDE 20 MG TAB PO SCH ×2 (09:00→17:17)
[2020-10-05] MEDS: SPIRONOLACTONE 25 MG TAB PO SCH (09:00)
[2020-10-05 09:12] LABS: BASO # 0.1 10^3/uL (0.0-0.2); BASO % 1.2 % (0.0-1.0); HEMATOCRIT 32.4 % (36.0-47.0); LYMPH # 0.4 10^3/uL (1.5-5.0); LYMPH % 9.8 % (24.0-44.0); MEAN CORPUSCULAR HEMOGLOBIN 28.4 pg (27.0-33.0); MEAN CORPUSCULAR HGB CONC 29.6 g/dl (32.0-36.5); MEAN CORPUSCULAR VOLUME 95.9 fl (80.0-96.0); MONO # 0.5 10^3/uL (0.0-0.8); MONO % 11.7 % (2.0-8.0); NEUTROPHILS # 3.2 10^3/uL (1.5-8.5); NEUTROPHILS % 75.8 % (36.0-66.0); PLATELET COUNT, AUTOMATED 132 10^3/uL (150-450); RED BLOOD COUNT 3.38 10^6/uL (4.00-5.40); WHITE BLOOD COUNT 4.2 10^3/uL (4.0-10.0)
[2020-10-05 09:18] LABS: HEMOGLOBIN 9.6 g/dl (12.0-15.5)
[2020-10-05 09:29] LABS: BLOOD UREA NITROGEN 17 MG/DL (7-18); CALCIUM LEVEL 6.7 MG/DL (8.8-10.2); CARBON DIOXIDE LEVEL 27 MEQ/L (21-32); CHLORIDE LEVEL 113 MEQ/L (98-107); CREATININE FOR GFR 0.57 MG/DL (0.55-1.30); GLOMERULAR FILTRATION RATE > 60.0 (>45); GLUCOSE, FASTING 126 MG/DL (70-100); SODIUM LEVEL 147 MEQ/L (136-145)
[2020-10-05 09:43] LABS: CALCIUM LEVEL 8.5 MG/DL (8.8-10.2); CREATININE FOR GFR 1.01 MG/DL (0.55-1.30); GLOMERULAR FILTRATION RATE 58.2 (>45); MAGNESIUM LEVEL 1.2 MG/DL (1.8-2.4); POTASSIUM SERUM 3.9 MEQ/L (3.5-5.1)
[2020-10-05] MEDS: VILAZODONE 40 MG PO SCH (09:56)
[2020-10-05] MEDS: NYSTATIN 100,000 UNITS/GM TOPICAL PWD 15 GM TOP SCH ×2 (09:57→21:29)
[2020-10-05] MEDS: PANTOPRAZOLE 40MG TAB (PROTONIX) PO SCH (09:58)
[2020-10-05] MEDS: POTASSIUM CHLORIDE 10 MEQ SR TABLET PO SCH ×2 (09:58→21:29)
[2020-10-05] MEDS: guaiFENesin ER 600 MG TAB PO SCH ×2 (09:58→21:28)
[2020-10-05] MEDS: LACTOBACILLUS ACIDOPHILUS CAP (BACID) PO SCH ×3 (09:58→17:18)
[2020-10-05] MEDS: CALCIPOTRIENE CREAM 0.005% 60GM TOP PRN ×2 (10:22→22:31)
[2020-10-05] MEDS: MAG SULF 1GM/100ML (MAG RUN) 1 GM in IV 1 EA IV SCH ×4 (10:49→14:27)
--- NOTE | 2020-10-05 11:16 | IPNPDOC ---
Date Seen The patient was seen on 10/05/20. Progress Note SUBJECTIVE: Patient was seen and examined this morning. She currently has no new complaints. She is currently on PO diuretics. Midodrine has been added to assist with her low blood pressures. There have otherwise been no adverse events reported overnight. OBJECTIVE PHYSICAL EXAMINATION: VITAL SIGNS: Please see below. GENERAL: Awake, alert, and oriented. Appears in no acute distress. Sitting in chair. Appears comfortable. Conversive HEENT: Atraumatic, normocephalic. Eyes are nonicteric. Trachea is midline. Mucous membranes are pink and moist. CARDIOVASCULAR: Normal S1, S2. Regular rate and rhythm. No clicks, rubs, or murmurs RESPIRATORY: Diminished breath sounds throughout. Crackles in the lower lung malone bilaterally. Symmetric chest expansion. No wheezes or rhonchi ABDOMINAL: Soft, nondistended. Nontender. Normoactive bowel sounds throughout EXTREMITIES: 3+ pitting edema in bilateral lower extremities. Plaque psoriasis on bilateral lower extremities. NEUROLOGICAL: No focal neurological deficits PSYCHOLOGICAL: Mood and affect appear appropriate LABORATORY DATA, IMAGING STUDIES, MICROBIOLOGY: Please see below. Echocardiogram: 1. Study is of limited technical quality, underlying atrial tachycardia. 2. Normal LV size with hyperdynamic LV systolic function and relatively preserved diastolic function. 3. No hemodynamically significant aortic and mitral valvular disease. 4. At least moderate tricuspid insufficiency. 5. Very high central venous pressure and at least moderate pulmonary hypertension DVT prophylaxis ordered?: Heparin ASSESSMENT AND PLAN: Patient is a 65 year old female with a past medical history significant for metastatic adenocarcinoma of the lungs to both pleura and pericardium and history of liver cirrhosis who presented to [facility] originally with worsening lower extremity edema and shortness of breath. She had developed a worsening pleural effusion and was transferred to [facility]. She has since received a paracentesis and has been continued with diuresis. PROBLEMS: 1. Shortness of breath; multifactorial 2/2 decompensated cirrhosis, pulmonary HTN -Patient is s/p Paracentesis on 09/28. She has received Albumin. Fluid was positive for malignancy likely from her metastatic adenocarcinoma of the lung. -Noted to be hypotensive likely 2/2 paracentesis and history of cirrhosis. Midodrine has been added to help augment BP with diuresis -Continue with Torsemide -Continue with Spironolactone 2. Electrolyte Imbalance -Patient noted to be hypokalemic and hypomagnesemic. Lab draw was from port. Potassium recheck was within normal limits. Mag was low at 1.2 -Will monitor and replete prn 3. Plaque Psoriasis -History of plaque psoriasis. Mostly on her bilateral lower extremities. Some plaques notes on her back. -Continue with Calcipotriene 4. Post-Obstructive PNA -History of adenocarcinoma of the right lung. She has continued bilateral pleural effusions and chronic atelectasis -S/p 7 days of Augmentin and Ceftaroline -Afebrile without leukocytosis -Incentive spirometry and Acapella ordered 5. Metastatic Adenocarcinoma of the Lung -Patient was on Keytruda outpatient. Will need to follow-up with Oncology outpatient 6. Diarrhea -C. diff negative. -continue with Imodium as needed and bacid 7. Hypotension and Tachycardia -BP has been soft. Likely secondary to s/p paracentesis and liver cirrhosis. Midodrine has been added to support diuresis -Metoprolol for tachycardia 8. DMII -Continue with sliding scale insulin coverage ACHS 9. Depression -Continue home medications; Viibryd 10. GERD -Continue Protonix 11. DVT prophylaxis -Heparin DISPOSITION: Pending clinical improvement. Continuing diuresis. Likely discharge in 24-48 hours VS, I&O, 24H, Fishbone Vital Signs/I&O Vital Signs Date Time Temp Pulse Resp B/P (MAP) Pulse Ox O2 Delivery O2 Flow Rate FiO2 10/05/20 06:37 97.9 111 20 103/65 (78) 93 Nasal Cannula 2.0 10/04/20 19:30 24 I&O- Last 24 Hours up to 6 AM 10/05/20 06:00 Intake Total 1290 ml Output Total 500 ml Balance 790 ml Laboratory Data 24H LABS Laboratory Tests 2 10/04/20 11:20: Bedside Glucose (Misc Panel) 171H 10/04/20 16:22: Bedside Glucose (Misc Panel) 143H 10/04/20 20:08: Bedside Glucose (Misc Panel) 161H 10/05/20 06:15: Bedside Glucose (Misc Panel) 97 10/05/20 08:05: Immature Granulocyte % (Auto) 0.7, Neutrophils (%) (Auto) 74.0H, Lymphocytes (%) (Auto) 11.2L, Monocytes (%) (Auto) 11.6H, Eosinophils (%) (Auto) 1.4, Basophils (%) (Auto) 1.1H, Neutrophils # (Auto) 2.1, Lymphocytes # (Auto) 0.3L, Monocytes # (Auto) 0.3, Eosinophils # (Auto) 0.0, Basophils # (Auto) 0.0, Nucleated Red Blood Cells % (auto) 0.0, Immature Platelet Fraction 2.1 10/05/20 08:06: Anion Gap 7L, Glomerular Filtration Rate > 60.0, Calcium Level 6.7#L, Magnesium Level 1.0L 10/05/20 08:59: Immature Granulocyte % (Auto) 0.5, Neutrophils (%) (Auto) 75.8H, Lymphocytes (%) (Auto) 9.8L, Monocytes (%) (Auto) 11.7H, Eosinophils (%) (Auto) 1.0, Basophils (%) (Auto) 1.2H, Neutrophils # (Auto) 3.2, Lymphocytes # (Auto) 0.4L, Monocytes # (Auto) 0.5, Eosinophils # (Auto) 0.0, Basophils # (Auto) 0.1, Nucleated Red Blood Cells % (auto) 0.0, Anion Gap 4L, Glomerular Filtration Rate 58.2, Calcium Level 8.5#L, Magnesium Level 1.2L CBC/BMP Laboratory Tests 10/05/20 08:05 10/05/20 08:06 10/05/20 08:59 Microbiology Microbiology 09/28/20 Acid Fast Stain, Received Pending 09/28/20 Mycobacterial Culture, Received Pending 09/28/20 Fungal Smear, Received Pending 09/28/20 Fungal Culture, Received Pending 09/28/20 Gram Stain - Final, Complete 09/28/20 Body Fluid Culture - Final, Complete 09/28/20 Anaerobic Culture - Final, Complete GME ATTESTATION GME ATTESTATION My faculty preceptor for this patient encounter was physically present during the encounter and was fully available. All aspects of the patient interview, examination, medical decision making process, and medical care plan development were reviewed and approved by the faculty preceptor. The faculty preceptor is aware and concurs with the plan as stated in the body of this note and will attest to such by his/her cosignature. ATTENDING NOTE I, Yahaira Lieberman, have independently examined this patient and performed my own physical exam, as well as reviewed the documentation and edited where necessary. I have discussed in detail with the resident / student the findings and plan of treatment as documented by the resident / student and edited their note. I agree with their findings and treatment plan and have edited their documentation. I will continue to follow the patient during this hospital stay. LEIGH ANN COLEY DO Oct 05, 2020 11:16 YAHAIRA LIEBERMAN MD Oct 05, 2020 12:15
[2020-10-05] MEDS: MIDODRINE 5 MG TAB PO SCH ×2 (13:05→17:27)
[2020-10-05] MEDS: SODIUM CHLORIDE 0.9% INJ 10 ML SYR IV PRN ×2 (13:06→15:30)
[2020-10-05 14:00] VITALS: BP 102/63
[2020-10-05 17:16] VITALS: BP 104/56
[2020-10-05 20:04] VITALS: O2SAT 98
[2020-10-05] MEDS: SIMVASTATIN 20 MG TAB PO SCH (21:28)
[2020-10-05 22:00] VITALS: BP 103/66
[2020-10-06] MEDS: METOPROLOL TART 25 MG TABLET PO SCH ×5 (00:10→23:16)
[2020-10-06] MEDS: HEPARIN SOD (PORCINE) 5000UNITS/ML 1ML VIAL/SYRINGE SQ SCH ×3 (05:50→21:12)
[2020-10-06] MEDS: SODIUM CHLORIDE 0.9% INJ 10 ML SYR IV PRN (05:51)
[2020-10-06 06:00] VITALS: BP 105/65
[2020-10-06 06:18] LABS: HEMATOCRIT 32.8 % (36.0-47.0); HEMOGLOBIN 9.6 g/dl (12.0-15.5); MEAN CORPUSCULAR HEMOGLOBIN 28.2 pg (27.0-33.0); MEAN CORPUSCULAR HGB CONC 29.3 g/dl (32.0-36.5); MEAN CORPUSCULAR VOLUME 96.2 fl (80.0-96.0); PLATELET COUNT, AUTOMATED 139 10^3/uL (150-450); RED BLOOD COUNT 3.41 10^6/uL (4.00-5.40); WHITE BLOOD COUNT 4.4 10^3/uL (4.0-10.0)
[2020-10-06 07:05] LABS: BLOOD UREA NITROGEN 21 MG/DL (7-18); CALCIUM LEVEL 8.6 MG/DL (8.8-10.2); CARBON DIOXIDE LEVEL 34 MEQ/L (21-32); CHLORIDE LEVEL 103 MEQ/L (98-107); CREATININE FOR GFR 0.81 MG/DL (0.55-1.30); GLOMERULAR FILTRATION RATE > 60.0 (>45); GLUCOSE, FASTING 157 MG/DL (70-100); MAGNESIUM LEVEL 1.8 MG/DL (1.8-2.4); POTASSIUM SERUM 3.9 MEQ/L (3.5-5.1); SODIUM LEVEL 142 MEQ/L (136-145)
[2020-10-06] MEDS: IPRATROPIUM 0.5MG/ALBUTEROL 2.5MG INH SOL UD 3ML (DUONEB) NEB SCH ×4 (07:11→23:28)
[2020-10-06] MEDS: HumaLOG INSULIN (NovoLOG) PER UNIT SC SCH ×4 (08:34→20:37)
[2020-10-06] MEDS: guaiFENesin ER 600 MG TAB PO SCH ×2 (08:36→21:13)
[2020-10-06] MEDS: LACTOBACILLUS ACIDOPHILUS CAP (BACID) PO SCH ×3 (08:36→17:53)
[2020-10-06] MEDS: MIDODRINE 5 MG TAB PO SCH ×3 (08:36→17:52)
[2020-10-06] MEDS: PANTOPRAZOLE 40MG TAB (PROTONIX) PO SCH (08:36)
[2020-10-06] MEDS: SPIRONOLACTONE 25 MG TAB PO SCH (08:36)
[2020-10-06] MEDS: TORSEMIDE 20 MG TAB PO SCH ×2 (08:36→17:53)
[2020-10-06] MEDS: POTASSIUM CHLORIDE 10 MEQ SR TABLET PO SCH ×2 (08:37→21:13)
[2020-10-06] MEDS: SODIUM CHLORIDE 0.9% INJ 10 ML SYR IV SCH (08:37)
[2020-10-06] MEDS: NYSTATIN 100,000 UNITS/GM TOPICAL PWD 15 GM TOP SCH ×2 (08:37→21:12)
[2020-10-06] MEDS: VILAZODONE 40 MG PO SCH (08:38)
--- NOTE | 2020-10-06 14:18 | IPNPDOC ---
Date Seen The patient was seen on 10/06/20. Progress Note SUBJECTIVE: Patient was seen and examined this morning. She does have some pain in her legs and continued swelling although states that it has improved. She has worked with PT and has done well. Patient was contacted today in regards to her potential discharge. He expressed concern that she would need 24/7 care although she has not required that while inpatient. There have been no adverse events reported overnight OBJECTIVE PHYSICAL EXAMINATION: VITAL SIGNS: Please see below. GENERAL: Awake, alert, and oriented. Appears in no acute distress. Sitting comfortably in bed HEENT: Atraumatic, normocephalic. Eyes are nonicteric. Trachea is midline. Mucous membranes are pink and moist CARDIOVASCULAR: Normal S1, S2. Regular rate and rhythm. No clicks, rubs, or murmurs RESPIRATORY: Diminished breath sounds throughout with bibasilar crackles. Unchanged from prior examination. On 2L NC. ABDOMINAL: Soft, nondistended. Nontender. Normoactive bowel sounds EXTREMITIES: 3-4+ pitting edema. Unchanged from prior exam. plaque psoriasis on bilateral lower extremities NEUROLOGICAL: No focal neurological deficits PSYCHOLOGICAL: Mood and affect appear appropriate LABORATORY DATA, IMAGING STUDIES, MICROBIOLOGY: Please see below. Echocardiogram: 1. Study is of limited technical quality, underlying atrial tachycardia. 2. Normal LV size with hyperdynamic LV systolic function and relatively preserved diastolic function. 3. No hemodynamically significant aortic and mitral valvular disease. 4. At least moderate tricuspid insufficiency. 5. Very high central venous pressure and at least moderate pulmonary hypertension DVT prophylaxis ordered?: Heparin ASSESSMENT AND PLAN: Patient is a 65 year old female with a past medical history significant for metastatic adenocarcinoma of the lungs to both pleura and pericardium and history of liver cirrhosis who presented to [facility] originally with worsening lower extremity edema and shortness of breath. She had developed a worsening pleural effusion and was transferred to [facility]. She has since received a paracentesis and has been continued with diuresis. PROBLEMS: 1. Shortness of breath; multifactorial 2/2 decompensated cirrhosis, pulmonary HTN -Patient is s/p paracentesis. Likely metastatic disease to liver given imaging findings. -She remains hypotensive which is likely secondary to her paracentesis and history of cirrhosis. Midodrine has been added to help with diuresis. She may need to be continued on midodrine outpatient -Continue with spironolactone and torsemide 2. Electrolyte imbalance -Monitor and replete prn 3. Plaque Psoriasis -Will continue Calcipotriene 4. Post-obstructive PNA -Patient has adenocarcinoma of the right lung. She has completed antibiotics. -Continue with acapella and spirometry 5. Metastatic Adenocarcinoma of the lung -Patient will need follow-up with oncology after discharge 6. Diarrhea -Continue Imodium and bacid 7. Hypotension and tachycardia -Midodrine has been added to augment BP. 8. DMII -Sliding scale coverage ACHS 9. Depression -Viibryd 10. GERD -Protonix 11. DVT Prophylaxis -Heparin DISPOSITION: Patient has improved clinically. Likely discharge tomorrow. She has cleared PT with recommendations for home with services. VS, I&O, 24H, Fishbone Vital Signs/I&O Vital Signs Date Time Temp Pulse Resp B/P (MAP) Pulse Ox O2 Delivery O2 Flow Rate FiO2 10/06/20 12:00 105 99/61 10/06/20 06:00 97.8 17 92 Nasal Cannula 2.0 10/05/20 20:04 24 I&O- Last 24 Hours up to 6 AM 10/06/20 06:00 Intake Total 540 ml Output Total 625 ml Balance -85 ml Laboratory Data 24H LABS Laboratory Tests 2 10/05/20 17:00: Bedside Glucose (Misc Panel) 151H 10/05/20 20:07: Bedside Glucose (Misc Panel) 162H 10/06/20 06:04: Nucleated Red Blood Cells % (auto) 0.0, Anion Gap 5L, Glomerular Filtration Rate > 60.0, Calcium Level 8.6L, Magnesium Level 1.8 10/06/20 11:40: Bedside Glucose (Misc Panel) 128H CBC/BMP Laboratory Tests 10/06/20 06:04 Microbiology Microbiology 09/28/20 Acid Fast Stain, Received Pending 09/28/20 Mycobacterial Culture, Received Pending 09/28/20 Fungal Smear, Received Pending 09/28/20 Fungal Culture, Received Pending 09/28/20 Gram Stain - Final, Complete 09/28/20 Body Fluid Culture - Final, Complete 09/28/20 Anaerobic Culture - Final, Complete GME ATTESTATION GME ATTESTATION My faculty preceptor for this patient encounter was physically present during the encounter and was fully available. All aspects of the patient interview, examination, medical decision making process, and medical care plan development were reviewed and approved by the faculty preceptor. The faculty preceptor is aware and concurs with the plan as stated in the body of this note and will attest to such by his/her cosignature. ATTENDING NOTE Attending Attestation: Patient independently seen and examined. I have discussed in detail with the re sident / student the findings and plan of treatment as documented by the resident / student. I agree with their findings and treatment plan and have edited their documentation. I will continue to follow the patient during this hospital stay. LEIGH ANN COLEY DO Oct 06, 2020 14:18 MAYITO SCHERER MD Oct 07, 2020 09:27
[2020-10-06 19:31] VITALS: O2SAT 98
[2020-10-06 20:00] VITALS: BP 110/64
[2020-10-06] MEDS: SIMVASTATIN 20 MG TAB PO SCH (21:13)
[2020-10-06] MEDS: CALCIPOTRIENE CREAM 0.005% 60GM TOP PRN (23:17)
[2020-10-07 05:55] VITALS: BP 107/78
[2020-10-07 06:13] VITALS: BP 107/78
[2020-10-07] MEDS: HEPARIN SOD (PORCINE) 5000UNITS/ML 1ML VIAL/SYRINGE SQ SCH (06:13)
[2020-10-07] MEDS: METOPROLOL TART 25 MG TABLET PO SCH ×2 (06:13→12:00)
[2020-10-07] MEDS: SODIUM CHLORIDE 0.9% INJ 10 ML SYR IV PRN (06:14)
[2020-10-07 06:30] LABS: HEMOGLOBIN 9.4 g/dl (12.0-15.5); MEAN CORPUSCULAR HEMOGLOBIN 28.4 pg (27.0-33.0); MEAN CORPUSCULAR HGB CONC 29.4 g/dl (32.0-36.5); MEAN CORPUSCULAR VOLUME 96.7 fl (80.0-96.0); PLATELET COUNT, AUTOMATED 146 10^3/uL (150-450); RED BLOOD COUNT 3.31 10^6/uL (4.00-5.40); WHITE BLOOD COUNT 4.4 10^3/uL (4.0-10.0)
[2020-10-07] MEDS: IPRATROPIUM 0.5MG/ALBUTEROL 2.5MG INH SOL UD 3ML (DUONEB) NEB SCH (07:21)
[2020-10-07 08:08] LABS: BLOOD UREA NITROGEN 21 MG/DL (7-18); CALCIUM LEVEL 8.5 MG/DL (8.8-10.2); CARBON DIOXIDE LEVEL 34 MEQ/L (21-32); CHLORIDE LEVEL 103 MEQ/L (98-107); CREATININE FOR GFR 0.83 MG/DL (0.55-1.30); GLOMERULAR FILTRATION RATE > 60.0 (>45); GLUCOSE, FASTING 152 MG/DL (70-100); POTASSIUM SERUM 4.1 MEQ/L (3.5-5.1); SODIUM LEVEL 142 MEQ/L (136-145)
[2020-10-07] MEDS: TORSEMIDE 20 MG TAB PO SCH (09:00)
[2020-10-07] MEDS: SPIRONOLACTONE 25 MG TAB PO SCH ×2 (09:00→09:24)
[2020-10-07] MEDS: POTASSIUM CHLORIDE 10 MEQ SR TABLET PO SCH (09:22)
[2020-10-07] MEDS: PANTOPRAZOLE 40MG TAB (PROTONIX) PO SCH (09:22)
[2020-10-07] MEDS: HumaLOG INSULIN (NovoLOG) PER UNIT SC SCH ×2 (09:23→12:00)
[2020-10-07] MEDS: LACTOBACILLUS ACIDOPHILUS CAP (BACID) PO SCH ×2 (09:23→12:25)
[2020-10-07] MEDS: guaiFENesin ER 600 MG TAB PO SCH (09:24)
[2020-10-07] MEDS: MIDODRINE 5 MG TAB PO SCH ×2 (09:24→12:24)
[2020-10-07] MEDS: VILAZODONE 40 MG PO SCH (09:26)
[2020-10-07] MEDS: SODIUM CHLORIDE 0.9% INJ 10 ML SYR IV SCH (09:29)
[2020-10-07 09:30] VITALS: BP 94/59
[2020-10-07] MEDS: NYSTATIN 100,000 UNITS/GM TOPICAL PWD 15 GM TOP SCH (09:30)
[2020-10-07] MEDS ORDERED: POTA20TA6 PO (10:15)
[2020-10-07] MEDS ORDERED: ALDA25TA2 PO (10:15)
[2020-10-07] MEDS ORDERED: METO25TA4 PO (10:15)
[2020-10-07] MEDS ORDERED: TORS100T PO (10:15)
[2020-10-07] MEDS ORDERED: MIDO5TA PO (10:15)
--- NOTE | 2020-10-07 12:29 | DS.PDOC ---
Discharge Summary General Date of Admission Sep 27, 2020 at 09:39 Date of Discharge 10/07/20 Primary Care Physician: Matt Huynh MD [facility] Attending Physician: MAYITO SCHERER MD Specialist/Consultants Involve: ESTEFANY ZAMORA MD Specialist/Consultants Involve Dr. Tran Discharge Summary PROCEDURES PERFORMED DURING STAY: Paracentesis ADMITTING DIAGNOSES: 1. Decompensated cirrhosis with right sided heart failure 2. Metastatic Adenoacarincoma of the lung 3. Post-obstructive PNA 4. Plaque Psoriasis 5. Hypokalemia DISCHARGE DIAGNOSES: 1. Decompensated cirrhosis with right sided heart failure 2. Metastatic Adenoacarincoma of the lung 3. Post-obstructive PNA 4. Plaque Psoriasis 5. Hypokalemia 6. Dialysis associated hypotension COMPLICATIONS/CHIEF COMPLAINT: Malignant Pleural Effusion. HISTORY OF PRESENT ILLNESS: Patient is a 65 year old female with a past medical history significant for adenocarcinoma of the lung with metastasis to the pleura and pericardium, cirrhosis with ascites, and plaque psoriasis who presented originally to [facility] for worsening lower extremity edema and s hortness of breath. Additionally, at the time the patient was suspected of having a potential cellulitis and was started on Ancef. She had received a CT at outside hospital demonstrating a mild to moderate pleural effusion bilaterally. She was then transferred to [facility] for further evaluation of possible thoracentesis HOSPITAL COURSE: On presentation to [facility] the patients reported cellulitis appeared to be more consistent with plaque psoriasis. She was started on Iv diuretics for likely right sided heart failure. Her pleural effusions did not appear significant enough for thoracentesis drainage however she did have ascites. The patient underwent thoracentesis with 4050 cc of fluid removed. She was transfused albumin. The patient did develop hypotension likely secondary to parcentesis-induced circulatory dysfunction. The patient did require further diuresis and therefore was started on Midodrine to help support diuresis. Patient was continued with PT. She did show improvement. Additionally, the patient was suspected of having a post-obstructive pneumonia. She was given a 10 day course of Augmentin with improvement. She was given both incentive spirometry and acapella to assist with lung mechanics and mucillary clearance On discharge the patient metroprolol was changed to 25 mg BID, torsemide 100mg BID, Spironolactone 25mg daily, Midodrine 5mg TID, and Potassium chloride 20Meq BID. Patient was recommended to follow-up with her PCP in 3-5 days for a repeat BMP to check potassium level. Additionally patient was made aware that she may need additional changes to her BP medications. Patient was referred to Cardiology for management of her pulmonary HTN and HFpEF. DISCHARGE MEDICATIONS: Please see below. ALLERGIES: Please see below. PHYSICAL EXAMINATION ON DISCHARGE: VITAL SIGNS: Please see below. GENERAL: Awake, alert, and oriented. Appears in no acute distress. Sitting comfortably in bed HEENT: Atraumatic, normocephalic. Eyes are nonicteric. Trachea is midline. Mucous membranes are pink and moist CARDIOVASCULAR: Normal S1, S2. Regular rate and rhythm. No clicks, rubs, or murmurs RESPIRATORY: Diminished breath sounds throughout with bibasilar crackles. Unchanged from prior examination. On 2L NC. ABDOMINAL: Soft, nondistended. Nontender. Normoactive bowel sounds EXTREMITIES: 3-4+ pitting edema. Unchanged from prior exam. plaque psoriasis on bilateral lower extremities NEUROLOGICAL: No focal neurological deficits PSYCHOLOGICAL: Mood and affect appear appropriate LABORATORY DATA: Please see below. IMAGING: INDICATION: pleural effusion. COMPARISON: Chest CT dated 08/17/2020 and PA and lateral chest dated 09/10/2020 TECHNIQUE: Chest CT without IV contrast. FINDINGS: The right chest tube is been removed. The right IJ Ahorio-G-Rulk catheter is unchanged. There is a small right pleural effusion, not significantly changed. There is a moderate left pleural effusion, also unchanged. There is a spiculated right hilar mass is previously there appears to be postobstructive pneumonitis peripheral to this mass in the right upper lobe, right middle lobe and right lower lobe. This appears unchanged. Posteriorly in the lingula on the left just anterior to the major fissure there is a 7 mm lung nodule. This measured 5 mm previously. Additionally there is parenchymal density in the lung extending superiorly and inferiorly from this nodule as an interval change, possibly postobstructive pneumonitis. There is stranding extending from the left hilus toward this nodule as previously. There is mediastinal adenopathy, unchanged. There is abdominal ascites as previously. The spleen appears enlarged measuring up to 15 cm AP. This appears unchanged. There is no adrenal mass. The hepatic margin has a nodular appearance suggestive of cirrhosis requiring clinical correlation. IMPRESSION: The right chest tube is been removed. The right IJ Owmznd-V-Dqtp catheter is unchanged. The small right pleural effusion is unchanged. The moderate left pleural effusion is unchanged. The abdominal ascites is unchanged. The spiculated right hilar mass is unchanged. The postobstructive pneumonitis/interstitial tumor spread the right is unchanged. The left lung nodule is increased in size today measuring 7 mm (5 mm previously). There is density in the left l lung extending cephalad had and caudad from this nodule, possibly postobstructive pneumonitis, as a change. Splenomegaly. Nodular appearing hepatic margins suggestive of cirrhosis. INDICATION: ascites. COMPARISON: None. TECHNIQUE: The procedure was performed under the direct supervision of Dr. Ellis. The risks and benefits of the procedure were explained to the patient and informed consent was obtained. The procedure was performed by Dr. Finn under my personal guidance. The largest pocket of fluid was localized in the right flank using ultrasound guidance. The skin was prepped and draped in a sterile fashion. 1% lidocaine was used as a local anesthetic. An 8-Croatian multi side-hole catheter was inserted using trocar technique. 4050 cc yellow fluid was withdrawn with a sample sent to the lab for analysis. The patient tolerated the procedure well and there were no immediate complications. After the appropriate amount of monitored convalescence, the patient was disc harged from the department. FINDINGS: None IMPRESSION: Ultrasound-guided paracentesis yielding 4050 cc of yellow fluid with a sample sent to the lab for analysis <Electronically signed by Dominic Simon > 09/28/20 1544 <Electronically signed by Freeman Ellis > 09/28/20 1838 INDICATION: ascites. Evaluation for possible paracentesis. COMPARISON: None. TECHNIQUE: Four quadrant abdominal ascites survey scan. FINDINGS: Four quadrant scanning through the abdomen confirms the presence of ascites. Paracentesis will proceed. IMPRESSION: Moderate abdominal ascites. <Electronically signed by Shorty Okeefe > 09/28/20 1109 INDICATION: SOB. COMPARISON: Comparison chest x-ray August 05, 2020. Comparison radiograph September 10, 2020 also reviewed. TECHNIQUE: Two views.. FINDINGS: A right-sided Kermxd-Q-Wdru catheter remains in place. Oxygen delivery tubing and the EKG electrodes are seen. There is evidence of bilateral pleural effusions, right greater than left similar to the August 05, 2020 radiograph. There are air bronchograms in the right lower lobe which are similar to the September 10, 2020 radiograph as well. Cardiomegaly is observed. IMPRESSION: Bilateral pleural effusions. Chronic atelectasis or infiltrate right lower lobe. Cardiomegaly. Idjwlr-K-Hzuc catheter in place.. <Electronically signed by Shorty Okeefe > 10/04/20 0901 PROGNOSIS: Fair ACTIVITY: [As tolerated]. DIET: 2g sodium DISCHARGE PLAN: Discharge home with services. Follow-up with PCP in 3-5 days. Continue medications as prescribed. Follow-up with Oncology. Referral to Cardiology DISCHARGE CONDITION: [Stable]. TIME SPENT ON DISCHARGE: Greater than 35 minutes. Vital Signs/I&Os Vital Signs Date Time Temp Pulse Resp B/P (MAP) Pulse Ox O2 Delivery O2 Flow Rate FiO2 10/07/20 09:30 94/59 (71) 10/07/20 07:21 16 10/07/20 06:13 110 10/07/20 05:55 98.2 99 Nasal Cannula 2.0 10/06/20 19:31 24 I&O- Last 24 Hours up to 6 AM 10/07/20 06:00 Intake Total 480 ml Output Total 1250 ml Balance -770 ml Laboratory Data Labs 24H Laboratory Tests 2 10/06/20 16:59: Bedside Glucose (Misc Panel) 133H 10/06/20 20:15: Bedside Glucose (Misc Panel) 172H 10/07/20 06:17: Nucleated Red Blood Cells % (auto) 0.0, Anion Gap 5L, Glomerular Filtration Rate > 60.0, Calcium Level 8.5L 10/07/20 11:43: Bedside Glucose (Misc Panel) 129H CBC/BMP Laboratory Tests 10/07/20 06:17 FSBS Laboratory Tests Test 10/06/20 16:59 10/06/20 20:15 10/07/20 11:43 Range/Units Bedside Glucose (Misc Panel) 133 172 129 80-115 MG/DL Microbiology Microbiology 09/28/20 Acid Fast Stain, Received Pending 09/28/20 Mycobacterial Culture, Received Pending 09/28/20 Fungal Smear, Received Pending 09/28/20 Fungal Culture, Received Pending 09/28/20 Gram Stain - Final, Complete 09/28/20 Body Fluid Culture - Final, Complete 09/28/20 Anaerobic Culture - Final, Complete Discharge Medications Scheduled Apixaban (Eliquis) 5 Mg Tablet, 5 MG PO BID, (Reported) Empagliflozin (Jardiance) 10 Mg Tablet, 10 MG PO DAILY, (Reported) Ferrous Sulfate (Ferrous Sulfate) 324 Mg Tablet.dr, 324 MG PO DAILY, (Reported) Lactobacillus Rhamnosus GG (Culturelle) 1 Each Capsule, 1 CAP PO DAILY, (Reported) Levalbuterol HCl (Levalbuterol HCl) 0.63 Mg/3 Ml Vial.neb, 0.63 MG INH QID, (Reported) Levalbuterol HCl (Levalbuterol HCl) 1.25 Mg/3 Ml Vial.neb, 1.25 MG NEB QID, (Reported) GIVEN AT [facility] Lovastatin (Lovastatin) 20 Mg Tablet, 20 MG PO QPM, (Reported) GIVEN PRAVASTATIN AT [facility] Metoprolol Tartrate (Metoprolol Tartrate) 25 Mg Tablet, 25 MG PO BID Midodrine HCl (Midodrine HCl) 5 Mg Tablet, 5 MG PO 08,12,16 Pantoprazole Sodium (Pantoprazole Sodium) 40 Mg Tablet.dr, 40 MG PO DAILY, (Reported) Potassium Chloride (Potassium Chloride) 20 Meq Tab.er.prt, 1 TAB PO BID Prochlorperazine Maleate (Prochlorperazine Maleate) 10 Mg Tablet, 1 TAB PO Q8HP Semaglutide (Ozempic) 0.25 Mg/0.2 Ml Pen.injctr, 0.5 MG SC QWEEK, (Reported) MONDAY Spironolactone (Aldactone) 25 Mg Tablet, 25 MG PO DAILY Torsemide (Torsemide) 100 Mg Tablet, 1 TAB PO BID Vilazodone HCl (Viibryd) 40 Mg Tablet, 40 MG PO DAILY, (Reported) Scheduled PRN Calcipotriene (Calcipotriene) 0.005% Oint...g., 1 DOSE TOP BID PRN for PSORIASIS, (Reported) Loperamide HCl (Loperamide) 2 Mg Capsule, 2 MG PO Q6H PRN for AFTER EACH LOOSE STOOL, (Reported) Allergies Coded Allergies: citalopram (Verified Adverse Reaction, Intermediate, jittery, 09/30/20) metformin (Verified Adverse Reaction, Intermediate, nausea, vomiting, 09/30) azithromycin (Verified Adverse Reaction, Mild, vomiting, 09/30/20) erythromycin base (Verified Adverse Reaction, Mild, vomiting, 09/30/20) mirtazapine (Verified Adverse Reaction, Mild, insomnia, 09/30/20) pravastatin (Verified Adverse Reaction, Mild, NAUSEA, 09/30/20) GME ATTESTATION GME ATTESTATION My faculty preceptor for this patient encounter was physically present during the encounter and was fully available. All aspects of the patient interview, examination, medical decision making process, and medical care plan development were reviewed and approved by the faculty preceptor. The faculty preceptor is aware and concurs with the plan as stated in the body of this note and will attest to such by his/her cosignature. ATTENDING NOTE Attending Attestation: Patient independently seen and examined. I have discussed in detail with the resident / student the findings and plan of treatment as documented by the resident / student. I agree with their findings and treatment plan and have edited their documen tation. I will continue to follow the patient during this hospital stay. LEIGH ANN COLEY DO Oct 07, 2020 12:29 MAYITO SCHERER MD Oct 09, 2020 07:13
--- NOTE | 2020-10-08 11:49 | HPE ---
HISTORY AND PHYSICAL DATE OF ADMISSION: 09/27/2020 HISTORY: Mercedes Morejon was transferred from [facility] for a higher level of care, admitted to the Hospitalist service. She has a history of adenocarcinoma of the lung, initially seen by Oncology on 05/14/2020. She had pneumonia on 03/2020 that failed to resolve, underwent bronchoscopy, which showed right upper lobe adenocarcinoma. Right lower lobe transbronchial biopsy was positive for adenocarcinoma. BRAF mutation was found to be positive. ALK testing has been done. She is on Keytruda. She had a pericardial effusion and underwent pericardial window, 05/29. 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 Cytology returned positive for adenocarcinoma. She was admitted to [facility] on 09/23/20 for a presumed cellulitis of the left lower leg. She had psoriasis and it has flared dramatically in the last few weeks. Her left lower leg became swollen and erythematous. She was admitted and placed on Zosyn. She became increasingly short of breath and has increasing abdominal distention. A brief review of the reports from the CT done at [facility] shows a left pleural effusion, small pericardial effusion, a large amount of ascites, and presumed cirrhosis. PAST MEDICAL HISTORY: 1. Diabetes. 2. Hypertension. 3. Hyperlipidemia. 4. Psoriasis. 5. Gastroesophageal reflux disease (GERD). 6. Supraventricular tachycardia (SVT). 7. History of pulmonary embolism on chronic anticoagulation. 8. Sarcoidosis diagnosed with mediastinoscopy. 9. History of polymyalgia rheumatica. PAST SURGICAL HISTORY: 1. Hysterectomy. 2. Tonsillectomy. 3. Colonoscopy in 2009. 4. Surgical reconstruction of tendons of her left hand, 1979. 5. Pericardial window, 05/29. 6. Cataract extractions, 2001 and 2004. CURRENT MEDICATIONS ON TRANSFER: 1. Eliquis 5 mg b.i.d. 2. Ferrous sulfate 224 mg daily. 3. Heparin flushes of her port. 4. Zosyn 3.375 G q.6 h. 5. Vancomycin. 6. Sliding scale insulin. 7. Levalbuterol via nebulizer. 8. Loperamide for diarrhea. 9. Metoprolol succinate 25 mg daily. 10. Viibryd 40 mg daily. 11. Calcipotriene 0.005% ointment b.i.d. 12. Protonix 40 mg daily. 13. Pravastatin 20 mg daily. 14. Spironolactone 25 mg daily. FAMILY HISTORY: Mother had congestive heart failure. Father had COPD. SOCIAL HISTORY: She used to smoke one-half pack a day for 20 years, quit in 1992, no alcohol use. She is and she is an avid golfer. I spent most of the time during the history discussing golf. REVIEW OF SYSTEMS: Psoriasis that flared recently. She has been increasing short of breath over the last few days. She has a lot of abdominal distention. DIAGNOSTIC TESTING FROM [facility]: 1. X-ray of left knee that was unremarkable. 2. CT angiogram of the chest showed a tiny pericardial effusion, liver nodularity suggesting cirrhosis, splenomegaly, moderate abdominal ascites, 3.5 x 3.2-cm central right middle lobe lung mass decreased in size as compared to 03/29, mild obstruction of the right middle bronchus due to right middle lobe mass with a patchy upper lobe and right lower lobe pneumonia, [id number] left pleural effusion, small right pleural effusion, tiny pericardial effusion. 3. Ultrasound of the left lower extremity showed no DVT. PHYSICAL EXAMINATION: Vital signs: No vitals have been listed yet. General Appearance: She is alert, conversant, in no distress, quite pleasant and talkative. HEENT: Unremarkable. Pupils equal, reactive to light. .. Neck: No masses. Lungs: Decreased breath sounds on the left side, poor air movement, scatter rhonchi on the right. Heart: Regular rhythm, no murmur. Abdomen: Soft, distended with ascites, diffusely mildly tender. Extremities: No clubbing or cyanosis, 1+ peripheral edema. The left leg is slightly more swollen than the right. There is extensive psoriasis of lower extremities, abdomen, flexure, creases, elbows, and upper arms. There is some confluent erythema of the left lower extremity. There is 1+ peripheral edema. IMPRESSION: 1. Cellulitis, left lower extremity, from worsening psoriasis. I have ordered ceftaroline; will adjust dose based upon renal function. This should also cover hospital associated pneumonia. 2. Post-obstructive pneumonia secondary to lung cancer. Ceftaroline should cover hospital-associated pathogens, including MRSA. 3. Pleural effusion. CT of the chest ordered. She is short of breath. I am not sure if this is from the abdominal ascites or increased left pleural effusion from the CT from yesterday. Dr. Tran has been consulted and the case has been discussed and he is waiting for the results of the CT scan. 4. Ascites. I do not see where she has a past history of documented cirrhosis. A CT report suggests cirrhosis. I have ordered a limited ultrasound to quantitate the amount of ascites. She is currently on Eliquis, which we will hold and try to get a therapeutic paracentesis tomorrow. Appropriate peritoneal fluid studies have been ordered. Sequential TEDs have been ordered while off of the Eliquis. Her Eliquis will need to be restarted after the procedure. 5. History of pulmonary embolism. She is at increased thromboembolic risk due to the cancer and lack of mobility. I am holding her Eliquis due to sending this patient for paracentesis tomorrow. This needs to be restarted after the paracentesis. 6. History of depression. She is on Viibryd at home, which we will continue to avoid SSRI withdrawal. 7. Diabetes. Sliding scale insulin coverage ordered. 8. Psoriasis. Continue her home topical treatment. 9. Hyperlipidemia. Will hold the pravastatin in the face of cirrhosis. 10. Hypertension. Continue metoprolol. She is on spironolactone. Lab work has been ordered to check the renal function. She will probably need both a loop diuretic, as well as spironolactone in the face of the ascites and cirrhosis. CODE STATUS: DNR/DNI has been ordered.
== END 2020-10-07 12:55 | disposition home health service (06) | DRG 432 ==
LOC: M PCU 09:39 → M MSPAV 10-04 12:43
PROVIDERS: ADMIT Internal Medicine Nephrology; ATTEND Internal Medicine
PROC: 0W9G3ZX Drainage of Peritoneal Cavity, Percutaneous Approach, Diagnostic (ICD-10-PCS; principal; 2020-09-28 14:30)
DX: K74.60 Unspecified cirrhosis of liver (principal); J18.9 Pneumonia, unspecified organism; C34.90 Malignant neoplasm of unspecified part of unspecified bronchus or lung; C78.2 Secondary malignant neoplasm of pleura; C79.89 Secondary malignant neoplasm of other specified sites; R18.0 Malignant ascites; E87.6 Hypokalemia; L40.0 Psoriasis vulgaris; Z79.899 Other long term (current) drug therapy; Z88.8 Allergy status to other drugs, medicaments and biological substances; K21.9 Gastro-esophageal reflux disease without esophagitis; E11.9 Type 2 diabetes mellitus without complications; F32.9 Major depressive disorder, single episode, unspecified; Z66 Do not resuscitate; R19.7 Diarrhea, unspecified; I95.9 Hypotension, unspecified; R00.0 Tachycardia, unspecified; Z79.01 Long term (current) use of anticoagulants; Z87.891 Personal history of nicotine dependence; I50.810 Right heart failure, unspecified

== ENCOUNTER → 2021-01-21 | Outpatient (CLI) | payer OTHER ==
[~2021-01-21] MED LIST changes: +COLA100C5 PO; +CULT10CA4 PO; +ELIQ5TAB PO; +FERR324T2 PO; +FERR325T19 PO; -FERR325T20 PO; +LEVA1.2519 NEB; +LOPE2CAP PO; +MEKI2TAB2 PO; +METO25TA4 PO; +MIDO5TA PO; +MIRA3350 PO; +MORP1SOL PO; +POTA20TA6 PO; +TAFI75CA2 PO; +TOPR25TA PO; +TORS100T PO
--- NOTE | 2021-01-21 12:45 | RADONC ---
Radiation Oncology Hx/FUP Radiation Oncology Hx/FUP Date of Service: Jan 21, 2021 Pt Identifier Mercedes Morejon is a 65 year old female former smoker with a history of sarcoidosis and stage IV NSCLC of the RUL, [id number], with overt BL endobronchial tumor/compression in the BL primary airways, and malignant pericardial and pleural effusions. She completed palliative split course RT 50 Gy in 20 fractions on 07/22/20. She was started on immunotherapy but was unable to tolerate this. She then was given BRAF-directed therapy but was unable to tolerate this as well. She then was briefly lost to follow up with medical oncology. She now comes in today for symptom management and to review next steps. Diagnosis/Treatment History Oncologic History History of sarcoid, not on immunomodulatory treatment Spring 2019: Developed cough and scant hemoptysis. Summer 2019: Progressive SOB. 03/02/20: CXR showing right perihilar masses/right pleural effusion 04/02/20: CT chest showing BL adenopathy, pericardial effusion and RUL mass 04/22/20: EBUS with Dr. Terrell showing endobronchial NSCLC in the RUL, RLL, and JUAQUIN primary airways 05/08/20: MRI head negative 05/12/20: Presented to ED with mounting SOB. CT angio chest showing increased pericardial and pleural fluid as well as RUL mass >10cm c-c extent with likely satellitoses. Also left sided mediastinal/hilar adenopathy with effacement of the left pulmonary artery and left lobar bronchial narrowing 05/13/20: Pericardial window drain and left chest tube placed by Dr. Tran 05/12/20-07/22/20 Split course RT to the right chest, 50 Gy in 20 fractions 07/02/20-09/17/20 Keytruda, d/c due to frequent hospitalizations 10/22/20- Started dabrafenib/tremitinib d/c due to diarrhea Interval History Here with [facility]. She is tearful and audibly short of breath. Reports that her breathing has worsened and now has devolved to constant air hunger. She has lost weight, was having intractable diarrhea from the BRAF medications, this caused her to stop them. She has called for medical oncology follow up several times, but has been unable to make an appointment. She would like to have medical oncology follow up. She has intermittent abdominal pain, states a mass in the LLQ has been growing. She has a dry cough, which is intermittent. Most bothersome is the air hunger and pain in the abdomen. She is having regular BMs. Current Therapy None Stage NSCLC stage IV [id number] Social History: Former smoker Does not drink Allergies / Meds Allergies: Coded Allergies: citalopram (Verified Adverse Reaction, Intermediate, jittery, 09/30/20) metformin (Verified Adverse Reaction, Intermediate, nausea, vomiting, 09/30/20) azithromycin (Verified Adverse Reaction, Mild, vomiting, 09/30/20) erythromycin base (Verified Adverse Reaction, Mild, vomiting, 09/30/20) mirtazapine (Verified Adverse Reaction, Mild, insomnia, 09/30/20) pravastatin (Verified Adverse Reaction, Mild, NAUSEA, 09/30/20) Home Meds Active Scripts Morphine Sulfate (Morphine Sulfate Concentrate) 100 Mg/5 Ml Solution, 0.25 ML PO Q4H for pain/dyspnea MDD 1.5 Milliliter(s) for 20 Days, #30 ML Prov:PATEL RUSSO MD 01/21/21 Docusate Sodium (Colace) 100 Mg Capsule, 1 CAP PO BID for 30 Days, #60 CAP 3 Refills Prov:PATEL RUSSO MD 01/21/21 Polyethylene Glycol 3350 (Miralax) 119 Gm Powder, 17 GRAM PO DAILY for constipation, #255 GRAM 3 Refills dissolve in water Prov:PATEL RUSSO MD 01/21/21 Apixaban (Eliquis) 5 Mg Tablet, 5 MG PO BID, #60 TAB 3 Refills Prov:JOHN POPE MD 11/26/20 Trametinib Dimethyl Sulfoxide (Mekinist) 2 Mg Tablet, 2 MG PO DAILY for 30 Days, #30 TAB 6 Refills Prov:JOHN POPE MD 11/10/20 Dabrafenib Mesylate (Tafinlar) 75 Mg Capsule, 150 MG PO BID for lung cancer MDD 150 mg twice daliy for 30 Days, #120 CAP 6 Refills Use with trametinib; give at least 1h before or 2 hrs after food Prov:JOHN POPE MD 11/10/20 Potassium Chloride (Potassium Chloride) 20 Meq Tab.er.prt, 1 TAB PO BID for 30 Days, #60 TAB Prov:SAHNI,YADI MDFR 10/28/20 Metoprolol Tartrate (Metoprolol Tartrate) 25 Mg Tablet, 25 MG PO BID for 30 Days, #60 TAB Prov:LEIGH ANN COLEY 10/07/20 Midodrine HCl (Midodrine HCl) 5 Mg Tablet, 5 MG PO 08,12,16 for 30 Days, #90 TAB Prov:NANCY COLEYEW 10/07/20 Spironolactone (Aldactone) 25 Mg Tablet, 25 MG PO DAILY for 30 Days, #30 TAB 0 Refills Prov:COLEYLEIGH ANN 10/07/20 Torsemide (Torsemide) 100 Mg Tablet, 1 TAB PO BID for 30 Days, #60 TAB 1 Refill Prov:COLEYLEIGH ANN 10/07/20 Prochlorperazine Maleate (Prochlorperazine Maleate) 10 Mg Tablet, 1 TAB PO Q8HP, #60 TAB Prov:JOHN POPE MD 09/18/20 Reported Medications Loperamide HCl (Loperamide) 2 Mg Capsule, 2 MG PO Q6H PRN for AFTER EACH LOOSE STOOL, TAB 09/27/20 Levalbuterol HCl (Levalbuterol HCl) 1.25 Mg/3 Ml Vial.neb, 1.25 MG NEB QID, NEB GIVEN AT [facility] 09/27/20 Lactobacillus Rhamnosus GG (Culturelle) 1 Each Capsule, 1 CAP PO DAILY, CAP 09/27/20 Ferrous Sulfate (Ferrous Sulfate) 324 Mg Tablet.dr, 324 MG PO DAILY 09/27/20 Calcipotriene (Calcipotriene) 0.005% Oint...g., 1 DOSE TOP BID PRN for PSORIASIS 08/05/20 Levalbuterol HCl (Levalbuterol HCl) 0.63 Mg/3 Ml Vial.neb, 0.63 MG INH QID 08/05/20 Lovastatin (Lovastatin) 20 Mg Tablet, 20 MG PO QPM GIVEN PRAVASTATIN AT [facility] 07/24/20 Pantoprazole Sodium (Pantoprazole Sodium) 40 Mg Tablet.dr, 40 MG PO DAILY, TAB 06/12/20 Vilazodone HCl (Viibryd) 40 Mg Tablet, 40 MG PO DAILY, TAB 04/20/20 Semaglutide (Ozempic) 0.25 Mg/0.2 Ml Pen.injctr, 0.5 MG SC QWEEK Monday04/20/20 Empagliflozin (Jardiance) 10 Mg Tablet, 10 MG PO DAILY, TAB 04/20/20 Review of Systems Review of Systems Constitutional: Reports: Malaise, Weakness, Fatigue, Weight Loss; Denies: Chills, Fever, Night Sweats Eyes: Denies: Pain HEENT: Denies: Head Aches Skin: Denies: Rash Pulmonary: Reports: Dyspnea, Cough, Pleuritic Chest Pain Cardiovascular: Denies: Chest Pain, Palpitations Gastrointestinal: Reports: Abdominal Pain; Denies: Diarrhea Genitourinary: Denies: Dysuria, Frequency Hematologic: Denies: Bruising, Bleeding Excessively Musculoskeletal: Denies: Neck pain, Back pain Neurological: Denies: Weakness, Numbness Psych: Reports: Anxiety, Depression Physical Examination Vital Signs Ht 60" Wt 117 lbs (from 196.6 lbs on 07/20/20) BMI 23 T 98.6 P 108 RR 18 BP 103/68 O2 99% Pain 0 Fatigue 2 General Exam: Positive: Moderate Distress Eye Exam: Positive: PERRLA, EOMI ENT EXAM: Positive: Atraumatic Neck Exam: Positive: Supple; Negative: Lymphadenopathy Chest Exam: Positive: Rales, Wheezing; Negative: Normal air movement Heart Exam: Positive: Tachycardic, Regular Rhythm Abdomen Exam: Positive: Normal bowel sounds, Soft, Mass (LLQ mass ~ 7 cm. Periumbilical mass ~ 4 cm ) Extremity Exam: Positive: Edema Skin Exam: Positive: Nl turgor and temperature Neuro Exam: Positive: Normal Speech, Cranial Nerves 3-12 NL Psych Exam: Positive: Mental status NL, Anxiety; Negative: Mood NL (Tearful) Diagnostic and Laboratory Diagnostic Review Radiologic images, relevant labs and pathology reports were personally reviewed and discussed with Ms. Morejon. Assessment and Plan Impression Assessment Ms. Morejon is a 65 year old female with a history of former smoker with a history of sarcoidosis and stage IV NSCLC of the RUL, [id number], with overt BL endobronchial tumor/compression in the BL primary airways, and malignant pericardial and pleural effusions. She completed palliative split course RT 50 Gy in 20 fractions on 07/22/20. She was started on immunotherapy but was unable to tolerate this. She then was given BRAF-directed therapy but was unable to tolerate this as well. She then was briefly lost to follow up with medical oncology. She now comes in today for symptom management and to review next steps. She has lost an astonishing amount of weight and now is cachectic and frail. She is highly symptomatic and has been off treatment now for several months. I think she would benefit from palliative morphine for her pain and dyspnea at this time. She would also benefit from a hospital bed as she is largely bed bound at home and unable to ambulate any appreciable distance. I think she is in the terminal phase of her disease. However, because of her acute concerns of pain and dyspnea today I did not brooch hospice although I think she would be appropriate for this. Rather, today at their request I will assist them in getting an appointment to see medical oncology, I will also order CT scans to restage her. She may ultimately go to hospice, but if there are lesions which explain her pain, she might benefit from additional palliative RT for pain control in the short-term. I will also give her a bowel regimen while she is on morphine. I will follow up with them in 2 weeks via telehealth. They were very appreciative of the visit and facilitation on Mercedes's behalf. Performance Status ECOG 3 Plan Start morphine concentrate 0.25 ml q4h for pain and dyspnea Hospital bed Rx sent to [facility] CT chest abdomen pelvis now, to restage, possibly inform palliative RT targets Medical oncology appointment next available Telehealth in 2 weeks, can brooch hospice at that time Ms. Morejon was encouraged to call with questions or concerns in the interim period. Billing Statement Total time of [43] minutes was spent preparing for the visit [3], obtaining HPI [7], examining the patient [3], reviewing diagnostic tests [2], discussing management options [11], coordinating care [7], and writing this note [10]. PATEL RUSSO MD Jan 21, 2021 12:45
== END ==
LOC: M ONCR 10:02
PROVIDERS: ATTEND General Practice
DX: C34.11 Malignant neoplasm of upper lobe, right bronchus or lung (principal); R06.02 Shortness of breath; R19.7 Diarrhea, unspecified; R63.4 Abnormal weight loss; Z79.899 Other long term (current) drug therapy; Z87.09 Personal history of other diseases of the respiratory system; Z87.891 Personal history of nicotine dependence; Z88.1 Allergy status to other antibiotic agents; Z88.8 Allergy status to other drugs, medicaments and biological substances

== ENCOUNTER → 2021-01-25 | Outpatient (CLI) | payer OTHER ==
[~2021-01-25] MED LIST changes: +SODIUM CHLORIDE 0.9% INJ 10 ML SYR IV PRN
[2021-01-25 11:37] LABS: ALBUMIN 2.6 GM/DL (3.2-5.2); ALT/SGPT 14 U/L (12-78); BLOOD UREA NITROGEN 16 MG/DL (7-18); CALCIUM LEVEL 8.6 MG/DL (8.8-10.2); CARBON DIOXIDE LEVEL 38 MEQ/L (21-32); CHLORIDE LEVEL 93 MEQ/L (98-107); CREATININE FOR GFR 0.95 MG/DL (0.55-1.30); GLOMERULAR FILTRATION RATE > 60.0 (>45); GLUCOSE, FASTING 163 MG/DL (70-100); POTASSIUM SERUM 2.6 MEQ/L (3.5-5.1); SODIUM LEVEL 137 MEQ/L (136-145); TOTAL PROTEIN 6.2 GM/DL (6.4-8.2)
--- NOTE | 2021-01-25 11:54 | RADENCPD ---
Date/Time of Encounter Date of Encounter: Jan 25, 2021 Time of Encounter: 11:53 Encounter Mercedes has a critical potassium level of 2.6 on labs today in anticipation of restaging scans. I have advised her to the ED immediately, for EKG and replacement therapy. PATEL RUSSO MD Jan 25, 2021 11:54
== END ==
LOC: M ONCR 10:10
PROVIDERS: ATTEND General Practice
DX: C34.11 Malignant neoplasm of upper lobe, right bronchus or lung (principal)
CPT/HCPCS: 36591; 80053; J1642

== ENCOUNTER → 2021-01-25 | Outpatient (CLI) | payer OTHER ==
[~2021-01-25] MED LIST changes: -SODIUM CHLORIDE 0.9% INJ 10 ML SYR IV PRN
== END ==
LOC: M LAB 09:37
PROVIDERS: ATTEND General Practice
DX: C34.11 Malignant neoplasm of upper lobe, right bronchus or lung (principal)

== ENCOUNTER → 2021-01-29 | Outpatient (CLI) | payer OTHER ==
[~2021-01-29] MED LIST changes: +GASTROGRAFIN SOLUTION 30ML (Q9963) ONE; +ISOVUE-370 76% 100ML VIAL ONE
--- NOTE | 2021-01-29 13:40 | REP ---
INDICATION: LUNG CA. COMPARISON: 09/27/2020 TECHNIQUE: Bolus of 100 mL Isovue 370 scanning through the chest with both coronal and sagittal reconstructions provided FINDINGS: There is [id number]-Izla catheter in the right chest with jugular insertion and tip into the SVC. There is volume loss in the right hemithorax with chronic atelectasis and opacification of right mid and lower lung zone and much smaller residual air in the mid and upper lung zone. Progression of the opacification and chronic infiltrates noted with air bronchograms throughout most of the right lung malone now. Fluid is seen extending to the apex. There is a pleural effusion on the left and at the level of the imelda has a thickness of 2.7 cm currently while on the previous study it measured 2.4 cm, only mildly increased in size. Some minor areas of dependent atelectasis adjacent to the major fissure and some compressive atelectatic change in the left lower lobe. Fullness at that right hilum with postobstructive pneumonia and chronic infiltration again seen. Few small nodes at the left hilum are noted. There are calcified nodes in the prevascular space, right paratracheal region, right hilar region and subcarinal region. Heart size is mildly enlarged with left atrial and ventricular enlargement. There are some coronary artery calcifications again seen. There is some pericardial thickening but I do not see a definite or significant pericardial effusion. I do not see definite hiatal hernia. Appear to be some nodes in the gastrohepatic ligament region. There are chronic changes in the liver and spleen from chronic liver disease and portal hypertension. Some ascites. Please see the CT abdomen pelvis this date for more detail. Adrenal glands grossly intact. There is a new grade 1 anterior compression deformity of T7 in the thoracic vertebrae compared to the September study. Other minor degenerative changes are seen. There are no other new or acute findings in the spine with the 1 focal stable sclerotic cysts focus the inferior endplate of T7. Discogenic changes in the lower to mid cervical spine noted. Sternum, manubrium, clavicles the the scapulae shoulders and ribs are without acute finding as visualized. There are old posttraumatic changes the left 7th and 8th anterior ribs from old the fracture. IMPRESSION: 1. Postobstructive pneumonitis progressive with right pleural effusion and likely post radiation changes as well with small amount of residual aeration in the right apex. Volume loss in the right hemithorax with compensatory hyperinflation of the left lung. Small to moderate left effusion is just a few mm greater in thickness since the previous study. 2. Left lung shows some dependent atelectatic change and patchy atelectasis. Small nodules could certainly be obscured in atelectatic areas. There is some adenopathy about the left hilum and the right hilum shows confluent fullness along with the calcified nodes at the hilum and mediastinum, likely related to previous treatment. 3. New grade 1 superior endplate depression of T7 vertebral body without other new or significant bony findings. There are a few sclerotic scattered bony foci in vertebral bodies including 1 at the inferior endplate of T7. All of these are stable. The aorta without aneurysm or dissection. The heart is enlarged. There is no filling defect in the mediastinal pulmonary arteries. <Electronically signed by Jonathon Tellez > 01/29/21 [id number]
--- NOTE | 2021-01-29 14:05 | REP ---
INDICATION: LUNG CA. COMPARISON: CT 09/17/2020, 08/17/2020 TECHNIQUE: Oral Gastrografin mixture per our protocol followed by bolus 100 mL Isovue 370 scanning through the pelvis coronal and sagittal reconstructions provided. FINDINGS: CT abdomen: Small hiatal hernia suggested. Gastrohepatic ligament node evident with some calcification in it. Liver is not enlarged but with prominent left hepatic lobe and lobulated contours consistent with chronic liver disease. No biliary dilatation, hepatic mass or cyst. There is splenomegaly unchanged from the previous study. Ascites is present throughout the upper abdomen. Volume of ascites is similar to the previous study. There is some fluid infiltration of the mesentery as well. Gallbladder is contracted with some layered stones and debris again seen. Pancreas shows no focal lesion. There is a node in the andreia hepatis up to 10 mm seen on image 45, unchanged. Colon shows scattered contrast and stool. No dilatation. There is some nonspecific wall thickening and adjacent pericolonic fluid related to the generalized ascites. No gross evidence for diverticulitis, perforation or free air. Adrenal glands are unchanged with slight thickening of limbs. There are multiple cysts right kidney. No hydronephrosis, hydroureter or ureteral stone. Small bowel loops are contrast filled without dilatation. Some nonspecific mild wall thickening of the proximal jejunum noted. No obstruction, small-bowel mass or other significant finding. There is bilateral spondylolysis with grade 1-2 spondylolisthesis of L5 on S1 without much change. There are sclerotic foci in the sacrum and several lumbar vertebral bodies which show increase in size compared to the previous study. The visualized ribs are unremarkable. CT pelvis: Distal small bowel loops unremarkable. Terminal ileum intact. There is abundant ascites into the deep pelvis, perhaps slightly smaller in volume than the previous study. Extensive diverticulosis of the distal left colon and sigmoid as well as the thickening of the rectosigmoid junction wall that may reflect some chronic colitis or proctosigmoiditis. Diverticulitis cannot be completely excluded. However there is no perforation or free air. No pathologic sized pelvic or inguinal adenopathy. Bladder partially filled without wall thickening, mass stone. No midline ventral or inguinal hernia. Sclerotic foci are now seen in the acetabulae and hips new from the previous study and consistent with bony metastatic disease. IMPRESSION: 1. Chronic liver disease with extensive ascites similar to or slightly smaller than the previous study. No hepatic mass or intrahepatic biliary dilatation. Splenomegaly again seen and unchanged. 2. Periportal and gastrohepatic ligament adenopathy with other retroperitoneal and mesenteric nodes similar to previous studies. 3. Gallbladder with some dependent debris or calcified stones. 4. Adrenal glands and kidneys unchanged without hydronephrosis stone or mass. A few cysts on the right. 5. Multiple new and larger sclerotic lesions in the lumbar spine, hips, iliac bones and sacrum consistent with bony metastatic disease. 6. Atherosclerotic calcifications aorta without aneurysm. 7. Extensive diverticulosis distal left colon and sigmoid. No evidence of perforation, abscess or obstruction. <Electronically signed by Jonathon Tellez > 01/29/21 [id number]
== END ==
LOC: M PLAIMG 11:02
PROVIDERS: ATTEND General Practice
DX: C34.11 Malignant neoplasm of upper lobe, right bronchus or lung (principal); J90 Pleural effusion, not elsewhere classified; I25.10 Atherosclerotic heart disease of native coronary artery without angina pectoris; K76.6 Portal hypertension; K76.89 Other specified diseases of liver; R18.8 Other ascites; J18.9 Pneumonia, unspecified organism; J98.11 Atelectasis; I51.7 Cardiomegaly; I70.0 Atherosclerosis of aorta; K57.30 Diverticulosis of large intestine without perforation or abscess without bleeding
CPT/HCPCS: 71260; 74177; Q9963; Q9967

== ENCOUNTER → 2021-02-04 | Outpatient (CLI) | payer OTHER ==
[~2021-02-04] MED LIST changes: -CEFD1CAP8 PO; +CEFD300C41 PO; +DEXA4TA PO; -FLUC150T; +FLUC150T9; -GASTROGRAFIN SOLUTION 30ML (Q9963) ONE; -ISOVUE-370 76% 100ML VIAL ONE; +NYST50SS SS; +ONDA8TAB8 PO; +POTA-151 PO; +POTA10TA17 PO; +POTA20EL PO; -POTA20TA6 PO; -PROC10TA4 PO; +PROC10TA5 PO
== END ==
LOC: M ONCR 11:27
PROVIDERS: ATTEND General Practice
DX: C34.11 Malignant neoplasm of upper lobe, right bronchus or lung (principal)

== ENCOUNTER → 2021-02-05 | Outpatient (CLI) | payer OTHER ==
[~2021-02-05] MED LIST changes: +CEFD1CAP8 PO; -CEFD300C41 PO; +FLUC150T; -FLUC150T9; -NYST50SS SS; -POTA-151 PO; -POTA10TA17 PO; +POTA20TA6 PO; +PROC10TA4 PO; -PROC10TA5 PO
[2021-02-05 11:15] VITALS: BP 101/56
--- NOTE | 2021-02-05 19:35 | REP ---
INDICATION: LUNG CA W/ ASCITES. COMPARISON: None. TECHNIQUE: The procedure was performed under the direct supervision of Dr. Okeefe. The risks and benefits of the procedure were explained to the patient and informed consent was obtained. The largest pocket of fluid was localized in the right lower quadrant using ultrasound guidance. The skin was prepped and draped in a sterile fashion. 7 mL of 1% lidocaine was used as a local anesthetic. Using ultrasound guidance an 8-Turkmen multi side-hole catheter was inserted using trocar technique.1800 mL of yellow fluid was withdrawn and discarded. Estimated blood loss: Less than 1 mL The patient tolerated the procedure well and there were no immediate complications. After the appropriate amount of monitored convalescence, the patient was discharged from the department. FINDINGS: None IMPRESSION: Ultrasound-guided paracentesis [id number] mL of yellow fluid. <Electronically signed by Dominic Simon > 02/05/21 [id number] <Electronically signed by Shorty Okeefe > 02/05/21 [id number]
== END ==
LOC: M IRPRO 09:38
PROVIDERS: ATTEND General Practice
DX: R18.8 Other ascites (principal); C34.11 Malignant neoplasm of upper lobe, right bronchus or lung